=== PATIENT | female | born 1940 | race Two or more races ===

== ENCOUNTER 2020-08-01 09:56 | Outpatient (REF) | payer MEDICARE, SELFPAY ==
--- NOTE | 2020-08-01 | MM_ITS ---
EXAMINATION: MM SCREENING DIGITAL BREAST TOMOSYNTHESIS, BILATERAL CLINICAL INFORMATION: Screening. Asymptomatic. The lifetime risk of breast cancer based on the Tyrer-Cuzick Model is 2%. COMPARISON: Mammography: 01/18/2019, 12/26/2018, 12/07/2017, 11/18/2016 TECHNIQUE: Digital breast tomosynthesis is performed in both the craniocaudal and mediolateral oblique views along with computer-aided detection (CAD). Synthesized 2D images are generated from the tomosynthesis. FINDINGS: There are scattered areas of fibroglandular density (ACR BI-RADS breast composition Category b). There are no significant masses, abnormal calcifications, or other abnormalities. Parenchymal pattern is similar to prior studies. The axilla and skin contours are unremarkable. MM/MM tomosynthesis screening BI IMPRESSION: No mammographic evidence of malignancy. ASSESSMENT: BI-RADS 1: Negative RECOMMENDATION: Routine annual mammography screening. This patient's information was entered into a reminder system with a target due date for their next mammogram.
== END 2020-08-01 09:57 | disposition home or self-care (01) ==
LOC: HO.MAMMO 09:56
PROVIDERS: PCP Internal Medicine; Visit Provider Internal Medicine
DX: Z12.31 Encounter for screening mammogram for malignant neoplasm of breast (principal)
CPT/HCPCS: 77063; 77067

== ENCOUNTER → 2020-12-26 09:02 | Outpatient (BNVA) | payer MEDICARE, SELFPAY | PROVIDERS: PCP Internal Medicine; Visit Provider Internal Medicine Endocrinology, Diabetes & Metabolism | DX: M81.0 Age-related osteoporosis without current pathological fracture (principal) | CPT/HCPCS: 99212 ==

== ENCOUNTER 2020-12-26 09:47 | Outpatient (REF) | payer MEDICARE, SELFPAY ==
[2020-12-26 10:32] LABS: Albumin Level 4.1 g/dL (3.5-5.0); Calcium 8.9 mg/dL (8.4-10.2)
[2020-12-26 11:01] LABS: Vitamin D 25-OH Total 28.8 ng/mL (>30)
[2020-12-31 07:32] LABS: N-Telopeptide 27 (see note); NTXCreaRU 100 mg/dL (20-275)
== END 2020-12-26 09:48 | disposition home or self-care (01) ==
LOC: HO.10HDL 09:47
PROVIDERS: Visit Provider Internal Medicine Endocrinology, Diabetes & Metabolism
DX: M81.0 Age-related osteoporosis without current pathological fracture (principal)
CPT/HCPCS: 36415; 82040; 82306; 82310; 82523

== ENCOUNTER 2021-03-30 13:59 | Outpatient (REF) | payer MEDICARE, MEDICAID, SELFPAY ==
--- NOTE | ~2021-03-30 | US_ITS ---
EXAMINATION: US VENOUS ULTRASOUND WITH DOPPLER LOWER EXTREMITY, LEFT CLINICAL INFORMATION: Left leg pain COMPARISON: None TECHNIQUE: Ultrasound of the deep veins is performed from the hip to the calf with compression sonography and color and pulse Doppler assessment. Spectral analysis with color-flow imaging is performed. FINDINGS: There is normal venous compression and respiratory variation and augmented flow. The visualized common femoral vein, superficial femoral vein, profunda femoral vein, popliteal vein, and the trifurcation region shows no evidence of deep venous thrombosis. There is no significant popliteal fossa cyst. If the patient's symptoms persist, followup ultrasound in 5 days 7 days might be of value to exclude proximal propagation from a non-visualized calf vein. US/US venous duplex LE LT IMPRESSION: No DVT demonstrated in the left lower extremity.
== END 2021-03-30 14:00 | disposition home or self-care (01) ==
LOC: HO.US 13:59
PROVIDERS: PCP Internal Medicine; Visit Provider Internal Medicine Cardiovascular Disease
DX: R06.00 Dyspnea, unspecified (principal); M79.662 Pain in left lower leg
CPT/HCPCS: 93971

== ENCOUNTER 2021-08-18 10:55 | Emergency (ER) | payer MEDICARE, MEDICAID, SELFPAY ==
--- NOTE | ~2021-08-18 | US_ITS ---
EXAMINATION: US VENOUS ULTRASOUND WITH DOPPLER LOWER EXTREMITY, LEFT CLINICAL INFORMATION: Left lower extremity swelling and pain COMPARISON: Left lower extremity DVT study 09/02/2015 TECHNIQUE: Ultrasound of the deep veins is performed from the hip to the calf with compression sonography and color and pulse Doppler assessment. Spectral analysis with color-flow imaging is performed. FINDINGS: There is normal venous compression and respiratory variation and augmented flow. The visualized common femoral vein, superficial femoral vein, profunda femoral vein, popliteal vein, and the trifurcation region shows no evidence of deep venous thrombosis. There is no significant popliteal fossa cyst. If the patient's symptoms persist, followup ultrasound in 5 days 7 days might be of value to exclude proximal propagation from a non-visualized calf vein. US/US venous duplex LE IMPRESSION: No DVT demonstrated in the left lower extremity.
[2021-08-18 11:20] VITALS: BP 131/83; PULSE 92; RESP 18; TEMP 36; O2SAT 99; BMI 32.0
[2021-08-18 15:45] VITALS: BP 162/74; PULSE 75; RESP 16; O2SAT 97
--- NOTE | 2021-08-18 19:29 | ED.RECABL ---
HPI - Recheck/Abnormal Lab/Rx General Chief Complaint: Recheck/Abnormal Lab/Rx Stated Complaint: Abnormal Labs Time Seen by Provider: 08/18/21 16:27 Source: patient Mode of arrival: ambulatory Limitations: language barrier ([place] speaking only, hot wire glass tube cutter used) History of Present Illness HPI narrative: 80-year-old female who has a history of hypertension who went to the [facility] clinic yesterday for evaluation of her elevated blood pressure. The patient had a blood work done yesterday and was contacted today and told that she had an abnormal lab a needed to be seen in the emergency department. I did discuss the patient's laboratory evaluation with the covering physician and the patient had an elevated D-dimer. The patient does have a history of chronic swelling of her left lower extremity. She states that her left leg is larger than her right and that the swelling may be slightly worse than usual. She denied fever, chills, headache, chest pain, shortness of breath, dyspnea on exertion. She states that she occasionally gets chills. She states she occasionally has a cough which is nonproductive. She denied nausea, vomiting or abdominal pain. Related Data Home Medications Medication Instructions Recorded Confirmed amlodipine 2.5 mg tablet 2.5 mg PO DAILY 12/26/20 12/26/20 amlodipine 5 mg tablet 5 mg PO DAILY 12/26/20 12/26/20 aspirin 81 mg tablet,delayed 81 mg PO DAILY 12/26/20 12/26/20 release (Adult Low Dose Aspirin) atorvastatin 40 mg tablet 40 mg PO BEDTIME 12/26/20 12/26/20 cholecalciferol (vitamin D3) 25 25 mcg PO DAILY 12/26/20 12/26/20 mcg (1,000 unit) capsule furosemide 20 mg tablet 20 mg PO QAM 12/26/20 12/26/20 glipizide 10 mg tablet 10 mg PO DAILY 12/26/20 12/26/20 hydralazine 25 mg tablet 25 mg PO BID tab 12/26/20 12/26/20 insulin glargine 100 unit/mL (3 14 unit SUBCUT QPM ml 12/26/20 12/26/20 mL) subcutaneous pen (Lantus Solostar U-100 Insulin) loratadine 10 mg capsule 10 mg PO DAILY 12/26/20 12/26/20 metformin 1,000 mg tablet 1,000 mg PO DAILY 12/26/20 12/26/20 pioglitazone 15 mg tablet 15 mg PO DAILY 12/26/20 12/26/20 valsartan 320 mg tablet 320 mg PO DAILY 12/26/20 12/26/20 Previous Rx's Medication Instructions Recorded calcium carbonate 600 mg calcium 600 mg PO BID 90 Days #180 tab 12/26/20 (1,500 mg) tablet (Calcium) cholecalciferol (vitamin D3) 25 1,000 unit PO DAILY 90 Days #90 cap 12/26/20 mcg (1,000 unit) capsule Allergies Allergy/AdvReac Type Severity Reaction Status Date / Time Sulfa (Sulfonamide Allergy Mild RASH/ITCH Unverified 05/08/20 16:04 Antibiotics) penicillin V Allergy Unknown Verified 12/28/19 00:00 sulfamethoxazole Allergy Unknown HIVES Unverified 05/08/20 16:04 [From BACTRIM] trimethoprim [From BACTRIM] Allergy Unknown HIVES Unverified 05/08/20 16:04 From PERCOCET Allergy Unknown RASH Uncoded 05/08/20 16:04 Review of Systems Review of Systems: Yes all other systems are reviewed and are negative [facility] Past Medical History [facility] Narrative: Past medical history: Diabetes mellitus, hypertension, hyperlipidemia. Social history: The patient denies tobacco, alcohol and drug use. Medical History Osteoporosis Surgical History Hx of hysterectomy Hx of lithotripsy Family History Family History (Updated 12/26/20 @ 09:22 by SAVANAH Bryan) Father Heart problem Mother No problems noted. Social History Social History (Updated 12/26/20 @ 09:22 by SAVANAH Bryan) Alcohol intake: never Advance Directives: No Advance Directives Information Provided: No Physical Exam Vital Signs: Vital Signs: Last Vital Signs Temp 96.8 F 08/18/21 11:20 Pulse 75 08/18/21 15:45 Resp 16 08/18/21 15:45 BP 162/74 H 08/18/21 15:45 Pulse Ox 97 08/18/21 15:45 BMI result Body Mass Index 32.0 Const: General: cooperative and no acute distress Orientation/consciousness: oriented to person and oriented to place Limitations: no limitations HENMT: Head: Yes normal to inspection, Yes normocephalic and Yes atraumatic Ears: external ears normal General nose exam: Normal external nose present Face and sinus: Yes normal facial exam Mouth: Normal oral and palatal mucosa present Throat: Yes posterior oropharynx normal Eyes: General: appearance normal, both eyes and all related structures Pupils: Equal, round and reactive pupils present Neck: Neck: Yes normal visual inspection, Yes no lymphadenopathy, Yes trachea midline and Yes supple Chest: Chest palpation & inspection: normal inspection of the chest and normal palpation of entire chest wall Resp: Effort & Inspection: normal respiratory effort and able to speak in complete sentences Auscultation: clear to auscultation bilaterally Cardio: Rate: regular rate Rhythm: regular rhythm Heart sounds: S1 normal heart sound present, S2 normal heart sound present and no murmurs GI: Inspection: Yes normal to inspection Palpation (GI): Soft to palpation, nontender and no guarding Auscultation: normal bowel sounds : General: Yes no CVA tenderness Back/Spine/Pelvis: Back: no CVA tenderness Skin: General skin exam: no rashes or lesions noted Neuro: General: oriented to person and oriented to place Cranial nerves: Yes CN's II-XII intact bilaterally and Yes Equal, round and reactive pupils present Cognition (Neuro): normal cognition Motor exam (neuro): 5/5 motor strength present throughout Extrem: Other: The patient has nonpitting edema to her left lower extremity the left lower extremity is larger than the right from the knee down, she has negative Homans sign bilaterally, her extremities neurovascular intact, there is no increased erythema or warmth, her skin is intact. Psych: Appearance: grossly normal Speech and movement: Normal speech and movement present Affect: normal affect Attitude: cooperative Thought process: Normal thought process present Thought content: Normal thought content present Course Course Course Narrative: 80-year-old female who was seen yesterday at [facility] for elevated blood pressure, she had blood work checked yesterday and was noted to have an elevated D-dimer and was referred to the emergency department to rule out DVT of her left lower extremity. Vital signs revealed a blood pressure of 131/83 and 162/74 otherwise were unremarkable. The patient's exam did reveal asymmetric swelling of her left lower extremity which she states is chronic. A Doppler ultrasound was obtained and there was no DVT noted by the radiologist. The patient will be discharged home and advised to follow-up with her PCP for further evaluation and for further management of her hypertension. Discharge Plan Discharge Clinical Impression: D-dimer, elevated, Left leg swelling Patient Disposition: Home, Self-Care Additional Instructions: I did speak to 1 of the doctors covering the [facility]. You had an elevated D-dimer and they were worried that your left leg swelling could be caused by blood clot. Your duplex ultrasound of your left leg today revealed no blood clot, this is very reassuring. Continue taking your medications as prescribed by your doctor. Follow-up with your doctor in 2 days. Please return to the emergency department if your symptoms get worse or if you develop any symptoms that are concerning to you. Prescriptions: No Action amlodipine 2.5 mg tablet 2.5 mg PO DAILY RF: 0 amlodipine 5 mg tablet 5 mg PO DAILY RF: 0 aspirin [Adult Low Dose Aspirin] 81 mg tablet,delayed release (DR/EC) 81 mg PO DAILY RF: 0 loratadine 10 mg capsule 10 mg PO DAILY RF: 0 atorvastatin 40 mg tablet 40 mg PO BEDTIME RF: 0 furosemide 20 mg tablet 20 mg PO QAM RF: 0 glipizide 10 mg tablet 10 mg PO DAILY RF: 0 hydralazine 25 mg tablet 25 mg PO BID RF: 0 metformin 1,000 mg tablet 1,000 mg PO DAILY RF: 0 pioglitazone 15 mg tablet 15 mg PO DAILY RF: 0 valsartan 320 mg tablet 320 mg PO DAILY RF: 0 cholecalciferol (vitamin D3) 25 mcg (1,000 unit) capsule 25 mcg PO DAILY RF: 0 Lantus Solostar U-100 Insulin 100 unit/mL (3 mL) insulin pen 14 unit subcut QPM RF: 0 cholecalciferol (vitamin D3) 25 mcg (1,000 unit) capsule 1,000 unit PO DAILY 90 Days Qty: 90 RF: 3 calcium carbonate [Calcium 600] 600 mg calcium (1,500 mg) tablet 600 mg PO BID 90 Days Qty: 180 RF: 3
== END 2021-08-18 20:48 | disposition home or self-care (01) ==
PROVIDERS: Emergency Provider Emergency Medicine Emergency Medical Services; PCP Internal Medicine
DX: R79.1 Abnormal coagulation profile (principal); M79.605 Pain in left leg; M79.89 Other specified soft tissue disorders; I10 Essential (primary) hypertension
CPT/HCPCS: 93971; 99283; 99284

== ENCOUNTER 2021-08-31 08:52 | Outpatient (REF) | payer MEDICARE, MEDICAID, SELFPAY ==
--- NOTE | ~2021-08-31 | MM_ITS ---
EXAMINATION: MM SCREENING DIGITAL BREAST TOMOSYNTHESIS, BILATERAL CLINICAL INFORMATION: Screening. Asymptomatic. The lifetime risk of breast cancer based on the Tyrer-Cuzick Model is 2%. COMPARISON: Mammography: 08/01/2020, 01/18/2019, 12/26/2018, 12/07/2017 TECHNIQUE: Digital breast tomosynthesis is performed in both the craniocaudal and mediolateral oblique views along with computer-aided detection (CAD). Synthesized 2D images are generated from the tomosynthesis. Additional left MLO view is provided. FINDINGS: There are scattered areas of fibroglandular density (ACR BI-RADS breast composition Category b). There are no significant masses, abnormal calcifications, or other abnormalities. MM/MM tomosynthesis screening BI IMPRESSION: No mammographic evidence of malignancy. ASSESSMENT: BI-RADS 1: Negative RECOMMENDATION: Routine annual mammography screening. This patient's information was entered into a reminder system with a target due date for their next mammogram.
== END 2021-08-31 08:53 | disposition home or self-care (01) ==
LOC: HO.MAMMO 08:52
PROVIDERS: PCP Internal Medicine; Visit Provider Internal Medicine
DX: Z12.31 Encounter for screening mammogram for malignant neoplasm of breast (principal)
CPT/HCPCS: 77063; 77067

== ENCOUNTER → 2021-12-23 08:26 | Outpatient (BNVA) | payer MEDICARE, MEDICAID, SELFPAY | PROVIDERS: PCP Internal Medicine; Visit Provider Internal Medicine Endocrinology, Diabetes & Metabolism | DX: M81.0 Age-related osteoporosis without current pathological fracture (principal) | CPT/HCPCS: 99212 ==

== ENCOUNTER 2021-12-25 09:21 | Outpatient (REF) | payer OTHER, MEDICAID, SELFPAY ==
[2021-12-25 10:07] LABS: Creatinine, mg/dL 77.31
[2021-12-25 12:39] LABS: Total Volume 24 Hour Urine 1325 mL
[2021-12-29 21:21] LABS: Calcium, 24 Hr Urine 163 mg/24 h; Calcium/Creatinine Ratio 160 mg/g creat (30-275); Creatinine 24Hr Urine 1.02 g/24 h (0.50-2.15)
[2021-12-30 06:12] LABS: N-Telopeptide 23 (see note); NTXCreaRU 230 mg/dL (20-275)
== END 2021-12-25 09:22 | disposition home or self-care (01) ==
LOC: HO.LNP 09:21
PROVIDERS: Internal Medicine Endocrinology, Diabetes & Metabolism; Visit Provider Internal Medicine Endocrinology, Diabetes & Metabolism
DX: M81.0 Age-related osteoporosis without current pathological fracture (principal)
CPT/HCPCS: 82340; 82523; 82570

== ENCOUNTER 2021-12-31 09:53 | Outpatient (REF) | payer OTHER, MEDICAID, SELFPAY ==
--- NOTE | ~2021-12-31 | MM_ITS ---
EXAMINATION: BONE DENSITOMETRY CLINICAL INDICATION: Osteoporosis. COMPARISON: Previous BD dated 02/03/2018 and baseline BD dated 03/28/2007. TECHNIQUE: Using a [employer] DXA System (software version: 13.1) manufactured by [employer], dual-energy x-ray absorptiometry was performed of the lumbar spine, left hip, and left forearm radius 33%. The images are of good technical quality. Summary results are attached. FINDINGS: AP SPINE L1-L4: Current: BMD 1.057 g/cm2, Z-score 0.3, T-score -1.0, normal, 2.0% decrease from previous, 10.9% increase from baseline (<5% change is not significant). Prior: BMD 1.079 g/cm2. Baseline: BMD 0.953 g/cm2. LEFT FEMUR, NECK: Current: BMD 0.781 g/cm2, Z-score 0.0, T-score -1.9, osteopenia. Prior: BMD 0.775 g/cm2. Baseline: BMD 0.720 g/cm2. LEFT FEMUR, TOTAL: Current: BMD 0.885 g/cm2, Z-score 0.7, T-score -1.0, normal, 0.3% increase from previous, 10.5% increase from baseline (<5% change is not significant). Prior: BMD 0.882 g/cm2. Baseline: BMD 0.801 g/cm2. LEFT FOREARM RADIUS 33%: BMD 0.535 g/cm2, Z-score -1.2, T-score -3.9, osteoporosis. Prior: Not previously measured. IDENTIFIED RISK FACTORS: Early menopause, hysterectomy, bilateral oophorectomy, rheumatoid arthritis, secondary osteoporosis. HISTORY OF FRACTURE: None listed. MEDICATIONS: Calcium, vitamin D. MM/XR DEXA appendicular skeleton IMPRESSION: 1. DIAGNOSIS: Osteoporosis based on the lowest T-score value of -3.9 in the forearm radius 33% applying World Health Organization criteria. 2. 10-YEAR FRACTURE RISK PREDICTION, FRAX: According to the guidelines, FRAX calculation should only be performed on patients in the osteopenia bone density category. Therefore, FRAX was not performed on this patient. 3. Treatment Recommendations: NOF guidelines recommend consideration for treatment in postmenopausal women and men age 50 and older presenting with the following: -A hip or vertebral (clinical or morphometric) fracture. -T-score less than or equal to -2.5 at the femoral neck or spine after appropriate evaluation to exclude secondary causes. -Low bone mass at the hip or spine and a 10-year fracture probability by FRAX of greater than or equal to 3% for hip fracture or greater than or equal to 20% for major osteoporotic fracture based on the [place] adapted WHO algorithm. 4. Other Recommendations: All treatment decisions require clinical judgment and consideration of individual patient factors, including patient preferences, comorbidities, previous drug use, risk factors not captured in the FRAX model (e.g. frailty, falls, vitamin D deficiency, increased bone turnover, interval significant decline in bone density) and possible under or overestimation of fracture risk by FRAX. Additional medical evaluation for secondary cause of low bone mineral density may be appropriate. FUTURE SCAN RECOMMENDATION: People with diagnosed cases of osteoporosis or at high risk for fracture should have regular bone mineral density tests. For patients eligible for Medicare, routine testing is allowed once every 2 years. The testing frequency can be increased to one year for patients who have rapidly progressing disease, those who are receiving or discontinuing medical therapy to restore bone mass, or have additional risk factors.
== END 2021-12-31 09:54 | disposition home or self-care (01) ==
LOC: HO.MAMMO 09:53
PROVIDERS: PCP Internal Medicine; Visit Provider Internal Medicine Endocrinology, Diabetes & Metabolism
DX: Z13.820 Encounter for screening for osteoporosis (principal); M81.0 Age-related osteoporosis without current pathological fracture; Z78.0 Asymptomatic menopausal state
CPT/HCPCS: 77081

== ENCOUNTER 2022-02-26 17:57 | Inpatient (IN) | payer OTHER, MEDICAID, SELFPAY ==
--- NOTE | ~2022-02-26 | CT_ITS ---
EXAMINATION: CT ABDOMEN AND PELVIS WITHOUT CONTRAST CLINICAL INFORMATION: Right lower abdomen pain. Clinical concern for diverticulitis. COMPARISON: Portions of CT 08/16/19 TECHNIQUE: Multidetector volumetric imaging was performed from the superior aspect of the liver through the pubic symphysis. Sagittal and coronal reformatted images were obtained on the technologist's workstation. This CT examination was performed using dose optimization techniques as appropriate, variously including the following: *Automated exposure control *Adjustment of mA and/or kV according to patient size (this includes techniques or standardized protocols for targeted exams where dose is matched to indication/reason for exam; i.e. extremities or head) *Use of iterative reconstruction technique DLP: 652 mGy-cm FINDINGS: LUNG BASES: The extreme upper aspect of the right lobe of the liver is not included. Trace pericardial fluid or thickening posteriorly. There is motion artifact limiting assessment. There are nonspecific dependent lung densities possibly atelectasis. LIVER, GALLBLADDER, AND BILIARY TREE: No suspicious abnormality there are surgical clips in the expected region of the gallbladder PANCREAS: There is some stranding around the pancreas. There is fatty atrophy. SPLEEN: Within normal limits ADRENAL GLANDS: Within normal limits KIDNEYS AND URETERS: There is moderate to marked dilation of the intrarenal collecting system, renal pelvis and proximal ureter on the right. There is an approximately 0.9 cm calculus in the ureter on the right at the L4 level. This is faintly suggested on the digital crop scout radiograph. There is perinephric and periureteric stranding on the right extending to the region of the duodenum and pancreaticoduodenal groove. No significant dilation of the distal ureter. There are a few tiny punctate left renal calculi. There is a 0.2 cm calculus in the lower pole of the left kidney 11.5 cm from the skin. BLADDER: No suspicious abnormality. GASTROINTESTINAL TRACT: No localized pericolonic fat stranding. There is no significant small bowel obstruction. No suspicious abnormality of the stomach. ABDOMINAL WALL: No significant hernia is appreciated. LYMPH NODES: There are no measurably enlarged abdominal or pelvic lymph nodes. There is no significant free intraperitoneal fluid VASCULAR: There is no abdominal aortic aneurysm. PELVIC VISCERA: I suspect previous hysterectomy. No suspicious adnexal mass or collection. OSSEOUS STRUCTURES: No suspicious focal lesion CT/CT abdomen pelvis wo con IMPRESSION: There is a 0.9 cm obstructing mid right ureteral calculus at the L4 level. No CT evidence of acute diverticulitis Fleischner guidelines were followed.
--- NOTE | ~2022-02-26 | XR_ITS ---
EXAMINATION: XR abdomen 1V CLINICAL INDICATION: Reason for Exam stones COMPARISON: CT abdomen pelvis 02/26/2022 TECHNIQUE: AP view of the abdomen. XR/XR abdomen 1V FINDINGS/IMPRESSION: * Right ureteral stent in place. The previously seen right ureteral stone is difficult to discern if this region overlaps the lateral aspect of L4-L5. * Nonobstructive bowel gas pattern. * Right upper quadrant cholecystectomy clips.
--- NOTE | ~2022-02-26 | XR_ITS ---
EXAMINATION: XR CHEST CLINICAL INFORMATION: Status post TLC placement COMPARISON: None TECHNIQUE: Frontal view of the chest was obtained. FINDINGS: The lungs are hypoexpanded with minimal patchy density in both lung bases, question atelectasis/infiltrate. Heart size and pulmonary vascularity is normal with slight prominence of parahilar vascular markings.. There is a new central catheter its tip in the right atrium. No evidence of pneumothorax. No gross bony abnormality. XR/XR chest 1V IMPRESSION: Hypoexpanded lungs with minimal patchy opacity both lung bases question atelectasis versus infiltrate. Increased pulmonary vascularity but no congestion suspected. New central catheter tip in the right atrium. Mild cardiomegaly.
[2022-02-26 17:59] VITALS: BP 150/87; PULSE 110; O2SAT 95
[2022-02-26 18:05] VITALS: BP 163/73; PULSE 108; RESP 20; TEMP 38.4; O2SAT 99; BMI 29.0
--- NOTE | 2022-02-26 18:09 | ECG_ITS ---
Test Reason : ABDOMINAL PAIN Blood Pressure : / mmHG Vent. Rate : 113 BPM Atrial Rate : 113 BPM P-R Int : 184 ms QRS Dur : 076 ms QT Int : 304 ms P-R-T Axes : 034 -02 048 degrees QTc Int : 416 ms Sinus tachycardia Inferior infarct , age undetermined Abnormal ECG When compared with ECG of 16-AUG-2019 11:41, Inferior infarct is now Present Nonspecific T wave abnormality now evident in Anterior leads Referred By: Librado Rebolledo Electronically Signed By:Fran Jordan
--- NOTE | 2022-02-26 18:26 | ED_ITS ---
HPI - Abdominal Pain General Chief Complaint: Abdominal Pain Stated Complaint: RLQ Abd Pain Time Seen by Provider: 02/26/22 18:26 Source: patient Mode of arrival: ambulatory Limitations: no limitations History of Present Illness HPI narrative: Patient complaining of right lower quadrant pain for last 3 days get got worse today acid with nausea and vomiting vomited multiple times today also had low- grade fever with chills and difficulty in urination patient had remote history of kidney stone in the past. Status post appendectomy on arrival patient's blood pressure was 163/73 pulse rate 108 temperature 101.2 degrees saturating 99% on room air Related Data Home Medications Medication Instructions Recorded Confirmed aspirin 81 mg tablet,delayed 81 mg PO DAILY 12/26/20 12/26/20 release (Adult Low Dose Aspirin) glipizide 10 mg tablet 10 mg PO DAILY 12/26/20 02/26/22 hydralazine 25 mg tablet 25 mg PO BID 12/26/20 02/26/22 insulin glargine 100 unit/mL (3 14 unit subcut QPM 12/26/20 02/26/22 mL) subcutaneous pen (Lantus Solostar U-100 Insulin) metformin 1,000 mg tablet 1,000 mg PO DAILY 12/26/20 02/26/22 atorvastatin 80 mg tablet 80 mg PO BEDTIME 12/23/21 02/26/22 blood sugar diagnostic (OneTouch #10 ea 12/23/21 02/26/22 Ultra Test) chlorhexidine gluconate 0.12 % 15 ml PO BID 12/23/21 02/26/22 mouthwash dulaglutide 0.75 mg/0.5 mL 0.75 mg subcut QWEEK 12/23/21 02/26/22 subcutaneous pen injector (Trulicity) furosemide 40 mg tablet 40 mg PO QAM 12/23/21 02/26/22 lancets 33 gauge (TRUEplus Lancets) #100 ea 12/23/21 02/26/22 loratadine 10 mg tablet 10 mg PO DAILY 12/23/21 02/26/22 pen needle, diabetic 31 gauge x #1,200 ea 12/23/21 02/26/22 5/16 (UltiCare Pen Needle) valsartan 160 mg tablet 160 mg PO QAM 12/23/21 02/26/22 Previous Rx's Medication Instructions Recorded calcium carbonate 600 mg calcium 600 mg PO BID 90 days #180 tabs 11/12/21 (1,500 mg) tablet (Calcium) cholecalciferol (vitamin D3) 25 1,000 unit PO DAILY 90 days #90 12/11/21 mcg (1,000 unit) capsule caps Allergies Allergy/AdvReac Type Severity Reaction Status Date / Time Sulfa (Sulfonamide Allergy Mild RASH/ITCH Verified 02/26/22 21:43 Antibiotics) penicillin V Allergy Unknown Unknown Verified 12/23/21 08:32 sulfamethoxazole Allergy Unknown HIVES Unverified 12/23/21 08:32 [From BACTRIM] trimethoprim [From BACTRIM] Allergy Unknown HIVES Unverified 12/23/21 08:32 From PERCOCET Allergy Unknown RASH Uncoded 12/23/21 08:32 Review of Systems Review of Systems Yes all other systems are reviewed and are negative [facility] Past Medical History Medical History Osteoporosis Surgical History Hx of hysterectomy Hx of lithotripsy Family History Family History Father Heart problem Mother No problems noted. Social History Social History Alcohol intake: never Patient Tobacco Use Status: Never used Tobacco Advance Directives: No Advance Directives Information Provided: No Physical Exam ED Vital Signs: Vital Signs - 24 hr 02/26/22 18:05 02/26/22 19:54 02/26/22 21:17 Temperature 101.2 F H 100.4 F 101.1 F H Pulse Rate 108 H 117 H 115 H Respiratory Rate 20 26 H 18 Blood Pressure 163/73 H 123/57 L 126/59 L Pulse Oximetry 99 94 91 L Oxygen Delivery Method Room Air Nasal Cannula Nasal Cannula Oxygen Flow Rate 2 2 BMI result Body Mass Index 29.0 Appearance: Alert. Oriented X3. In moderate distress Eyes: No pallor or icterus ENT: Pharynx normal. Oral Mucosa moist Neck: Normal inspection. Neck supple. CVS: Normal heart rate and rhythm. Pulses normal. Respiratory: No respiratory distress. Equal air entry bilateral, no wheezing/rales/rhonchi Abdomen: Soft, deep tenderness right lower quadrant with guarding no rebound tenderness Bowel sounds are present, no mass palpable, right CVA tenderness Skin: Skin warm and dry. Normal skin color. Normal skin turgor. Extremities: No lower extremity edema. No calf tenderness Neuro: Oriented X 3. No motor deficit. MDM - Abdominal Pain MDM Narrative Medical decision making narrative: 2199 Patient with 9 mm right distal ureteric obstructive stone with UTI clinically septic not in septic shock treated with IV fluids and IV ceftriaxone. Will admit patient for IV hydration IV antibiotic urologist to see in a.m. case discussed with Dr. Goldstein urologist Lab Data Attestation: I reviewed the patient's lab results. Result diagrams: 02/26/22 18:19 02/26/22 18:19 Labs: Lab Results 02/26/22 02/26/22 02/26/22 Range/Units 18:19 18:19 18:19 WBC 13.3 H (4.8-10.8) X10*3/uL RBC 4.00 L (4.20-5.50) X10*6/uL Hgb 11.9 L (12.0-16.0) g/dl Hct 35.8 L (37.0-47.0) % MCV 89.5 (80.0-98.0) fL MCH 29.8 (27.0-33.0) pg MCHC 33.2 (31.0-35.0) g/dl RDW 14.4 (11.0-16.0) % Plt Count 261 (160-400) X10*3/uL MPV 9.6 (9.4-12.3) fL Absolute Nucleated RBC 0.000 (0.0-0.012) X10*3/uL Nucleated RBC % (auto) 0.0 (0.0-0.2) /100WBC Sodium 133 L (135-145) mmol/L Potassium 4.5 (3.3-5.1) mmol/L Chloride 100 (96-108) mmol/L Carbon Dioxide 22 (22-29) mmol/L Anion Gap 16 (12-20) BUN 31 H (9-16) mg/dL Creatinine 1.37 (0.5-1.4) mg/dL Estim Creat Clear Calc 35.3 Estimated GFR 37 Random Glucose 257 H (60-115) mg/dL Lactic Acid 2.0 (0.5-2.0) mmol/L Calcium 9.1 (8.4-10.2) mg/dL Troponin I High Sens (<3.5-17.0) ng/L Lipase 17 (8-78) U/L Urine Color Urine Appearance Urine pH (5.0-8.0) Ur Specific Pryor (1.005-1.025) Urine Protein (NEG-TRACE) MG/DL Urine Glucose (UA) (NEG) MG/DL Urine Ketones (NEG) MG/DL Urine Blood (NEG) Urine Nitrite (NEG) Ur Leukocyte Esterase (NEG) Urine RBC (0) /HPF Urine WBC (0-4) /HPF Urine WBC Clumps Ur Squamous Epith Cells /LPF Urine Bacteria /LPF Urine Mucus /LPF COVID-19 ([facility]Y) (Negative) COVID-19 Clin Com 02/26/22 02/26/22 02/26/22 Range/Units 18:19 18:47 21:16 WBC (4.8-10.8) X10*3/uL RBC (4.20-5.50) X10*6/uL Hgb (12.0-16.0) g/dl Hct (37.0-47.0) % MCV (80.0-98.0) fL MCH (27.0-33.0) pg MCHC (31.0-35.0) g/dl RDW (11.0-16.0) % Plt Count (160-400) X10*3/uL MPV (9.4-12.3) fL Absolute Nucleated RBC (0.0-0.012) X10*3/uL Nucleated RBC % (auto) (0.0-0.2) /100WBC Sodium (135-145) mmol/L Potassium (3.3-5.1) mmol/L Chloride (96-108) mmol/L Carbon Dioxide (22-29) mmol/L Anion Gap (12-20) BUN (9-16) mg/dL Creatinine (0.5-1.4) mg/dL Estim Creat Clear Calc Estimated GFR Random Glucose (60-115) mg/dL Lactic Acid (0.5-2.0) mmol/L Calcium (8.4-10.2) mg/dL Troponin I High Sens 5.7 (<3.5-17.0) ng/L Lipase (8-78) U/L Urine Color YELLOW Urine Appearance HAZY Urine pH 6.5 (5.0-8.0) Ur Specific Pryor 1.010 (1.005-1.025) Urine Protein TRACE (NEG-TRACE) MG/DL Urine Glucose (UA) 500 H (NEG) MG/DL Urine Ketones 5 (NEG) MG/DL Urine Blood 3+ H (NEG) Urine Nitrite POS H (NEG) Ur Leukocyte Esterase 1+ H (NEG) Urine RBC 10-14 H (0) /HPF Urine WBC 10-14 H (0-4) /HPF Urine WBC Clumps NOTED Ur Squamous Epith Cells 2+ /LPF Urine Bacteria 3+ /LPF Urine Mucus 2+ /LPF COVID-19 ([facility]ARTY) Negative (Negative) COVID-19 Clin Com See Note Discharge Plan Discharge Clinical Impression: Calculus of kidney, UTI (urinary tract infection) Patient Disposition: Admitted As Inpatient
[2022-02-26 18:31] LABS: Hematocrit 35.8 % (37.0-47.0); Hemoglobin 11.9 g/dl (12.0-16.0); Mean Corpuscular HGB Conc 33.2 g/dl (31.0-35.0); Mean Corpuscular Hemoglobin 29.8 pg (27.0-33.0); Mean Corpuscular Volume 89.5 fL (80.0-98.0); Mean Platelet Volume 9.6 fL (9.4-12.3); Platelet Count 261 X10*3/uL (160-400); Red Cell Distribution Width 14.4 % (11.0-16.0); White Blood Count 13.3 X10*3/uL (4.8-10.8)
[2022-02-26] MEDS: 0.9 % Sodium Chloride 1,000 ML 999 ML IV ×2 (18:31→21:42)
[2022-02-26 18:44] LABS: Anion Gap 16 (12-20); Blood Urea Nitrogen 31 mg/dL (9-16); Calcium 9.1 mg/dL (8.4-10.2); Carbon Dioxide 22 mmol/L (22-29); Chloride 100 mmol/L (96-108); Creatinine Clr Calc Pharmacy 35.3; Estimated Glomerular Filt Rate 37; Glucose Random 257 mg/dL (60-115); Lipase 17 U/L (8-78); Potassium 4.5 mmol/L (3.3-5.1); Sodium 133 mmol/L (135-145)
[2022-02-26] MEDS: Morphine Sulfate 4 MG/ML CARTRIDGE IVPUSH (18:45)
[2022-02-26] MEDS: ondansetron HCL 4 MG/2 ML VIAL IVPUSH (18:46)
[2022-02-26 18:49] LABS: Troponin-I High Sensitivity 5.7 ng/L (<3.5-17.0)
[2022-02-26 19:09] LABS: COVID-19 Test Negative (Negative)
[2022-02-26] MEDS: cefTRIAXone sodium 1 GM in 0.9 % Sodium Chloride 50 ML IV (19:15)
[2022-02-26 19:54] VITALS: BP 123/57; PULSE 117; RESP 26; TEMP 38; O2SAT 94
[2022-02-26 21:17] VITALS: BP 126/59; PULSE 115; RESP 18; TEMP 38.4; O2SAT 91
[2022-02-26] MEDS: Ketorolac Tromethamine 30 MG/ML VIAL IVPUSH (21:21)
[2022-02-26 21:24] LABS: Appearance Urine HAZY; Color Urine YELLOW; Glucose Urine UA 500 MG/DL (NEG); Leukocyte Esterase Urine 1+ (NEG); Nitrite Urine POS (NEG); PH 6.5 (5.0-8.0); UACC Culture Trigger YES; Urine Blood 3+ (NEG); Urine Ketones 5 MG/DL (NEG); Urine Protein TRACE MG/DL (NEG-TRACE)
[2022-02-26 21:45] LABS: Bacteria Urine 3+ /LPF; Mucus Urine 2+ /LPF; Squamous Epithelial Cell Urine 2+ /LPF; WBC Clumps Urine NOTED
[2022-02-26 22:08] VITALS: BP 112/63
--- NOTE | 2022-02-26 22:13 | P.HPHOSP_ITS ---
History of Present Illness Date of Service: 02/26/22 Chief Complaint: abd pain 81-year-old female with a past medical history of hypertension, hyperlipidemia, diabetes, osteoporosis presented to the hospital today with a chief complaint of abdominal pain. Patient reports that over the past 1 week she has been having abdominal pain located mainly on the right flank area; radiating down the legs; denies any urin soila frequency urgency or dysuria. Denies any blood in the urine. Reports subjective fevers. Denies any chest pain or palpitations. Review of all other systems is negative except mentioned above ER course: Per ER team patient noted to have abnormal urinalysis consistent with UTI; CT scan showed 0.9 mm obstructing stone in the right ureteral L4 level; patient was given IV antibiotics. Urology team was notified. Admitted to the hospital for further management. His [facility] Medical History Osteoporosis Family History Father Heart problem Mother No problems noted. Surgical History Hx of hysterectomy Hx of lithotripsy Social History Alcohol intake: never Patient Tobacco Use Status: Never used Tobacco Advance Directives: No Advance Directives Information Provided: No Meds Allergies Allergy/AdvReac Type Severity Reaction Status Date / Time Sulfa (Sulfonamide Allergy Mild RASH/ITCH Verified 02/26/22 21:43 Antibiotics) penicillin V Allergy Unknown Unknown Verified 12/23/21 08:32 sulfamethoxazole Allergy Unknown HIVES Verified 02/26/22 23:56 [From BACTRIM] trimethoprim [From BACTRIM] Allergy Unknown HIVES Verified 02/26/22 23:56 From PERCOCET Allergy Unknown RASH Uncoded 12/23/21 08:32 Home Medications Medication Instructions Recorded Confirmed Last Taken Type aspirin 81 mg tablet,delayed 81 mg PO DAILY 12/26/20 02/26/22 Unknown History release (Adult Low Dose Aspirin) glipizide 10 mg tablet 10 mg PO DAILY 12/26/20 02/26/22 Unknown History hydralazine 25 mg tablet 25 mg PO BID 12/26/20 02/26/22 Unknown History insulin glargine 100 unit/mL (3 14 unit subcut QPM 12/26/20 02/26/22 Unknown History mL) subcutaneous pen (Lantus Solostar U-100 Insulin) metformin 1,000 mg tablet 1,000 mg PO DAILY 12/26/20 02/26/22 Unknown History atorvastatin 80 mg tablet 80 mg PO BEDTIME 12/23/21 02/26/22 Unknown History blood sugar diagnostic (OneTouch #10 ea 12/23/21 02/26/22 Unknown History Ultra Test) chlorhexidine gluconate 0.12 % 15 ml PO BID 12/23/21 02/26/22 Unknown History mouthwash dulaglutide 0.75 mg/0.5 mL 0.75 mg subcut QWEEK 12/23/21 02/26/22 Unknown History subcutaneous pen injector (Trulicity) furosemide 40 mg tablet 40 mg PO QAM 12/23/21 02/26/22 Unknown History lancets 33 gauge (TRUEplus Lancets) #100 ea 12/23/21 02/26/22 Unknown History loratadine 10 mg tablet 10 mg PO DAILY 12/23/21 02/26/22 Unknown History pen needle, diabetic 31 gauge x #1,200 ea 12/23/21 02/26/22 Unknown History 01/04 (UltiCare Pen Needle) valsartan 160 mg tablet 160 mg PO QAM 12/23/21 02/26/22 Unknown History Physical Exam Vital Signs and Narrative: Vital Signs: Last Vital Signs Temp 101.1 F H 02/26/22 21:17 Pulse 115 H 02/26/22 21:17 Resp 18 02/26/22 21:17 BP 126/59 L 02/26/22 21:17 Pulse Ox 91 L 02/26/22 21:17 O2 Del Method 02/26/22 21:17 O2 Flow Rate 2 02/26/22 21:17 BMI result Body Mass Index 29.0 Gen: Appears be in no acute distress HEENT: NCAT, Moist mucosa. Pulmonary: Vesicular breath sounds, fair air entry CVS: Normal S1-S2 Abdomen: BS+, Soft, tender in the right flank; Extremities: Warm well perfused Neuro: Alert and awake. Results Labs CBC and Chem 7: 02/26/22 18:19 07/08/22 18:19 Labs: Laboratory Results - last 24 hr 02/26/22 02/26/22 02/26/22 18:19 18:19 18:19 MCV 89.5 MCH 29.8 MCHC 33.2 RDW 14.4 Plt Count 261 MPV 9.6 Absolute Nucleated RBC 0.000 Nucleated RBC % (auto) 0.0 Anion Gap 16 Estim Creat Clear Calc 35.3 Estimated GFR 37 Random Glucose 257 H Lactic Acid 2.0 Calcium 9.1 Troponin I High Sens Lipase 17 Urine Color Urine Appearance Urine pH Ur Specific [place] Urine Protein Urine Glucose (UA) Urine Ketones Urine Blood Urine Nitrite Ur Leukocyte Esterase Urine RBC Urine WBC Urine WBC Clumps Ur Squamous Epith Cells Urine Bacteria Urine Mucus COVID-19 (MARTY) COVID-19 Clin Com 02/26/22 02/26/22 02/26/22 18:19 18:47 21:16 MCV MCH MCHC RDW Plt Count MPV Absolute Nucleated RBC Nucleated RBC % (auto) Anion Gap Estim Creat Clear Calc Estimated GFR Random Glucose Lactic Acid Calcium Troponin I High Sens 5.7 Lipase Urine Color YELLOW Urine Appearance HAZY Urine pH 6.5 Ur Specific [place] 1.010 Urine Protein TRACE Urine Glucose (UA) 500 H Urine Ketones 5 Urine Blood 3+ H Urine Nitrite POS H Ur Leukocyte Esterase 1+ H Urine RBC 10-14 H Urine WBC 10-14 H Urine WBC Clumps NOTED Ur Squamous Epith Cells 2+ Urine Bacteria 3+ Urine Mucus 2+ COVID-19 (MARTY) Negative COVID-19 Clin Com See Note Imaging Radiologist's Impressions: Impressions Abdomen/Pelvis CT 02/26/22 19:48 IMPRESSION: There is a 0.9 cm obstructing mid right ureteral calculus at the L4 level. No CT evidence of acute diverticulitis Fleischner guidelines were followed. Assessment and Plan (1) Calculus of kidney: Status: Acute (2) UTI (urinary tract infection): Status: Acute Plan 81-year-old female with a past medical history of hypertension, hyperlipidemia, diabetes, osteoporosis presented to the hospital today with a chief complaint of abdominal pain. Noted to have UTI/ureteral calculus. Admitted for further management. UTI: Right ureteral calculus: Measuring 0.9 cm. Obstructing. Urology team was notified. Pain control Continue IV ceftriaxone Follow-up cultures History of diabetes: Insulin sliding scale. History of hypertension: Patient's blood pressure currently on soft diet. Hold home hydralazine, losartan. DVT prophylaxis: Lovenox Code status: Full code Quality Stroke Does the patient have a stroke diagnosis?: No VTE Prior VTE?: No VTE Risk Level:: Medical - moderate - high VTE Device Contraindication: Treatment Not Indicated VTE Drug Contraindication: N/A - Med Ordered
[2022-02-26] MEDS: 0.9 % Sodium Chloride 1,000 ML 100 ML IVCONT (23:55)
[2022-02-27] VITALS (23 sets, daily range): BP systolic 63–123; BP diastolic 49–68; PULSE 69–162; RESP 14–27; TEMP 36.7–38.4; O2SAT 92–99
--- NOTE | 2022-02-27 | ECG_ITS ---
Test Reason : TACHYCARDIA Blood Pressure : / mmHG Vent. Rate : 160 BPM Atrial Rate : 000 BPM P-R Int : 000 ms QRS Dur : 100 ms QT Int : 286 ms P-R-T Axes : 000 001 -10 degrees QTc Int : 466 ms Supraventricular tachycardia Cannot rule out Inferior infarct (cited on or before 26-FEB-2022) Abnormal ECG When compared with ECG of 26-FEB-2022 18:28, Nonspecific T wave abnormality no longer evident in Anterior leads Referred By: Gopal Sheikh Electronically Signed By:Fran Jordan
[2022-02-27 06:50] LABS: Hematocrit 31.5 % (37.0-47.0); Hemoglobin 10.4 g/dl (12.0-16.0); Mean Corpuscular Volume 87.7 fL (80.0-98.0); PLT CLUMP 1; Red Blood Count 3.59 X10*6/uL (4.20-5.50); Red Cell Distribution Width 14.4 % (11.0-16.0)
[2022-02-27 07:03] LABS: Anion Gap 13 (12-20); Blood Urea Nitrogen 34 mg/dL (9-16); Calcium 7.4 mg/dL (8.4-10.2); Carbon Dioxide 18 mmol/L (22-29); Chloride 106 mmol/L (96-108); Creatinine Clr Calc Pharmacy 29.4; Estimated Glomerular Filt Rate 30; Glucose Random 232 mg/dL (60-115); Potassium 4.8 mmol/L (3.3-5.1); Sodium 132 mmol/L (135-145)
[2022-02-27 07:28] LABS: Band Neutrophils Percent 11 % (3-5); Lymphocytes Percent Manual 7 % (20-40); Monocytes Percent Manual 3 % (2-11); Neutrophils Percent Manual 79 % (45-73); RBC Morphology NORMAL
[2022-02-27] MEDS: HYDROmorphone HCl 0.5 MG/0.5 ML SYRINGE IVPUSH (07:28)
[2022-02-27 07:29] LABS: Platelet Estimate SLIGHTLY DECREASED (NORMAL); Platelet Morphology Comment NORMAL
[2022-02-27 07:30] LABS: Glucose, Whole Blood 202 mg/dL (60-115)
[2022-02-27] MEDS: Acetaminophen 325 MG TABLET 650 MG PO ×2 (07:33→23:47)
[2022-02-27] MEDS: Lactated Ringers 1,000 ML 999 ML IV (08:40)
[2022-02-27 08:44] LABS: Lymphocytes Absolute Manual 1.6 X10*3/uL (1.2-4.9); Monocytes Absolute Manual 0.7 X10*3/uL (0.1-1.2); Neutrophils Absolute Manual 20.8 X10*3/uL (2.0-8.3); Platelet Count 139 X10*3/uL (160-400); White Blood Count 23.1 X10*3/uL (4.8-10.8)
--- NOTE | 2022-02-27 08:47 | PC.NURSE ---
LR bolus running. Dr. Sheikh aware of am BP.
--- NOTE | 2022-02-27 09:57 | MHC.CM.PN ---
Attempted to meet with patient in regards to discharge planning. Patient currently sleeping. No family present. Will attempt to meet again. Continue to monitor for d/c needs.
--- NOTE | 2022-02-27 10:03 | PM.EVENT ---
Event Note Date of Service: 02/27/22 Event Note: Patient seen and examine this AM Early this morning, she started becoming more tachycardic and subseuqently hypotensive. Repeat lactate 2; 1L IVF ordered; One dose of empiric cefepime given. BP continues to remain low. Pt somnolent but easily arousable Critical Care consult requested and seen urgently bedside. Will be transferred to ICU for vasopressor support. Dr. Goldstein notified of change in status and will be coming shortly to evaluate the patient.
[2022-02-27] MEDS: cefEPime HCl 2 GM in 0.9 % Sodium Chloride 50 ML IV (10:15)
[2022-02-27] MEDS: Insulin Lispro 100 UNIT/ML 3 ML VIAL SUBCUT ×4 (10:15→21:09)
--- NOTE | 2022-02-27 10:17 | PC.NURSE ---
Lovenox on hold
--- NOTE | 2022-02-27 10:17 | PC.NURSE ---
Central line placed.
--- NOTE | 2022-02-27 10:29 | P.PNCC_ITS ---
Subjective Subjective Date of Service: 02/27/22 Interval History: 81-year-old lady with underlying history of hypertension, diabetes mellitus, prior renal calculi requiring lithotripsy admitted on 02/26/2022 with right flank pain secondary to obstructing renal calculus resulting in gram-negative bacteremia with septic shock now requiring initiation of vasopressor support and transferred to intensive care unit. Critical Care Time (minutes): 45 Physical Exam Vital Signs: Vital Signs: Last Vital Signs Temp 99.5 F 02/27/22 10:18 Pulse 153 H 02/27/22 10:23 Resp 14 02/27/22 08:48 BP 97/58 L 02/27/22 10:23 Pulse Ox 97 02/27/22 07:14 O2 Del Method 02/27/22 07:14 O2 Flow Rate 2 02/27/22 06:14 BMI result Body Mass Index 29.0 Const: General: no acute distress, alert and awake Eyes: Sclerae: sclerae normal EOM: EOMs intact bilaterally Neck: Neck: Yes no lymphadenopathy, Yes trachea midline and Yes supple Resp: Effort & Inspection: normal respiratory effort and no respiratory distress Auscultation: clear to auscultation bilaterally Cardio: Rate: tachycardic Rhythm: regular rhythm Heart sounds: no gallops, no murmurs and no rubs GI: Palpation (GI): Soft to palpation and Other GI palpation findings present ( Nontender) Auscultation: normal bowel sounds Extrem: General: Yes no pedal edema, No clubbing and No cyanosis Objective Data Labs CBC & Chem 7: 02/27/22 06:34 02/27/22 06:34 Labs: Laboratory Results - last 24 hr 02/26/22 02/26/22 02/26/22 18:19 18:19 18:19 WBC 13.3 H RBC 4.00 L Hgb 11.9 L Hct 35.8 L MCV 89.5 MCH 29.8 MCHC 33.2 RDW 14.4 Plt Count 261 MPV 9.6 Immature Gran % (Auto) Neut % (Auto) Lymph % (Auto) [place] % (Auto) Eos % (Auto) Baso % (Auto) Lymph # (Auto) [place] # (Auto) Eos # (Auto) Baso # (Auto) Abs Immat Gran (auto) Absolute Neuts (auto) Absolute Nucleated RBC 0.000 Nucleated RBC % (auto) 0.0 Neutrophils % (Manual) Band Neutrophils % Lymphocytes % (Manual) Monocytes % (Manual) Abs Neuts (Manual) Lymphocytes # (Manual) Monocytes # (Manual) Platelet Estimate Plt Morphology Comment RBC Morphology Sodium 133 L Potassium 4.5 Chloride 100 Carbon Dioxide 22 Anion Gap 16 BUN 31 H Creatinine 1.37 Estim Creat Clear Calc 35.3 Estimated GFR 37 POC Glucose Random Glucose 257 H Lactic Acid 2.0 Calcium 9.1 Troponin I High Sens Lipase 17 Urine Color Urine Appearance Urine pH Ur Specific [place] Urine Protein Urine Glucose (UA) Urine Ketones Urine Blood Urine Nitrite Ur Leukocyte Esterase Urine RBC Urine WBC Urine WBC Clumps Ur Squamous Epith Cells Urine Bacteria Urine Mucus COVID-19 (MARTY) COVID-19 Clin Com 02/26/22 02/26/22 02/26/22 18:19 18:47 21:16 WBC RBC Hgb Hct MCV MCH MCHC RDW Plt Count MPV Immature Gran % (Auto) Neut % (Auto) Lymph % (Auto) [place] % (Auto) Eos % (Auto) Baso % (Auto) Lymph # (Auto) [place] # (Auto) Eos # (Auto) Baso # (Auto) Abs Immat Gran (auto) Absolute Neuts (auto) Absolute Nucleated RBC Nucleated RBC % (auto) Neutrophils % (Manual) Band Neutrophils % Lymphocytes % (Manual) Monocytes % (Manual) Abs Neuts (Manual) Lymphocytes # (Manual) Monocytes # (Manual) Platelet Estimate Plt Morphology Comment RBC Morphology Sodium Potassium Chloride Carbon Dioxide Anion Gap BUN Creatinine Estim Creat Clear Calc Estimated GFR POC Glucose Random Glucose Lactic Acid Calcium Troponin I High Sens 5.7 Lipase Urine Color YELLOW Urine Appearance HAZY Urine pH 6.5 Ur Specific [place] 1.010 Urine Protein TRACE Urine Glucose (UA) 500 H Urine Ketones 5 Urine Blood 3+ H Urine Nitrite POS H Ur Leukocyte Esterase 1+ H Urine RBC 10-14 H Urine WBC 10-14 H Urine WBC Clumps NOTED Ur Squamous Epith Cells 2+ Urine Bacteria 3+ Urine Mucus 2+ COVID-19 (MARTY) Negative COVID-19 Clin Com See Note 02/27/22 02/27/22 02/27/22 06:34 06:34 07:26 WBC 23.1 H RBC 3.59 L Hgb 10.4 L Hct 31.5 L MCV 87.7 MCH 29.0 MCHC 33.0 RDW 14.4 Plt Count 139 L D MPV Not Reportable Immature Gran % (Auto) Cancelled Neut % (Auto) Cancelled Lymph % (Auto) Cancelled [place] % (Auto) Cancelled Eos % (Auto) Cancelled Baso % (Auto) Cancelled Lymph # (Auto) Cancelled [place] # (Auto) Cancelled Eos # (Auto) Cancelled Baso # (Auto) Cancelled Abs Immat Gran (auto) Cancelled Absolute Neuts (auto) Cancelled Absolute Nucleated RBC 0.000 Nucleated RBC % (auto) 0.0 Neutrophils % (Manual) 79 H Band Neutrophils % 11 H Lymphocytes % (Manual) 7 L Monocytes % (Manual) 3 Abs Neuts (Manual) 20.8 H Lymphocytes # (Manual) 1.6 Monocytes # (Manual) 0.7 Platelet Estimate SLIGHTLY DECREASED Plt Morphology Comment NORMAL RBC Morphology NORMAL Sodium 132 L Potassium 4.8 Chloride 106 Carbon Dioxide 18 L Anion Gap 13 BUN 34 H Creatinine 1.64 H Estim Creat Clear Calc 29.4 Estimated GFR 30 POC Glucose 202 H Random Glucose 232 H Lactic Acid Calcium 7.4 L D Troponin I High Sens Lipase Urine Color Urine Appearance Urine pH Ur Specific [place] Urine Protein Urine Glucose (UA) Urine Ketones Urine Blood Urine Nitrite Ur Leukocyte Esterase Urine RBC Urine WBC Urine WBC Clumps Ur Squamous Epith Cells Urine Bacteria Urine Mucus COVID-19 (MARTY) COVID-19 Clin Com 02/27/22 08:48 WBC RBC Hgb Hct MCV MCH MCHC RDW Plt Count MPV Immature Gran % (Auto) Neut % (Auto) Lymph % (Auto) [place] % (Auto) Eos % (Auto) Baso % (Auto) Lymph # (Auto) [place] # (Auto) Eos # (Auto) Baso # (Auto) Abs Immat Gran (auto) Absolute Neuts (auto) Absolute Nucleated RBC Nucleated RBC % (auto) Neutrophils % (Manual) Band Neutrophils % Lymphocytes % (Manual) Monocytes % (Manual) Abs Neuts (Manual) Lymphocytes # (Manual) Monocytes # (Manual) Platelet Estimate Plt Morphology Comment RBC Morphology Sodium Potassium Chloride Carbon Dioxide Anion Gap BUN Creatinine Estim Creat Clear Calc Estimated GFR POC Glucose Random Glucose Lactic Acid 2.0 Calcium Troponin I High Sens Lipase Urine Color Urine Appearance Urine pH Ur Specific [place] Urine Protein Urine Glucose (UA) Urine Ketones Urine Blood Urine Nitrite Ur Leukocyte Esterase Urine RBC Urine WBC Urine WBC Clumps Ur Squamous Epith Cells Urine Bacteria Urine Mucus COVID-19 (MARTY) COVID-19 Clin Com Microbiology Microbiology Results: Microbiology 02/26/22 19:05 Blood - Venous Blood Culture - Preliminary Prelim: GNR Gram Stain only 02/26/22 18:19 Blood - Venous Blood Culture - Preliminary Prelim: GNR Gram Stain only Progress Note: A&P Assessment and plan (1) Septic shock: Status: Acute (2) Gram-negative bacteremia: Status: Acute (3) Diabetes mellitus: Status: Acute (4) Calculus of kidney: Status: Acute (5) Hydronephrosis of right kidney: Status: Acute Plan Assessment: 81-year-old lady with underlying hypertension and diabetes and prior history of kidney stones admitted with flank pain secondary to obstructing right renal calculus resulting in hydronephrosis with septic shock and Gram- negative bacteremia. Plan: Neuro: No acute issues. Cardiac: Septic shock, continue to titrate off pressors as tolerated. Pulmonary: No acute issues. Renal: Right sided hydronephrosis secondary to obstructing renal calculus. Neurology service care appreciated. Planned for stenting. Endo: No acute issues. underlying diabetes mellitus. GI: No acute issues. ID: Gram-negative bacteremia with septic shock secondary to source. Empirically covered with cefepime. Cultures are pending. Heme/Onc: No acute issues. Psych: No acute issues. Miscellaneous: No acute issues. Prophylaxis: Lovenox Diet: NPO for procedure Critical care time spent: 45 minutes excluding separately billable procedures. Quality Stroke Does the patient have a stroke diagnosis?: No VTE Prior VTE?: No VTE Risk Level:: Medical - moderate - high VTE Device Contraindication: Treatment Not Indicated VTE Drug Contraindication: N/A - Med Ordered
--- NOTE | 2022-02-27 10:33 | W.PM.CCHP ---
Procedures Date of Service Date of Service: 02/27/22 Central Line Placement Right IJ: Central Line Comments: Right internal jugular triple-lumen central venous catheter emergently placed for vasopressor support under ultrasound guidance and usual sterile conditions with no immediate complications. X-ray for line position is pending.
--- NOTE | 2022-02-27 11:12 | PM.UROCN ---
History of Present Illness Consult details Consult date: 02/27/22 Narrative: Consultation - urosepsis with obstructing right proximal ureteric stone Reminders an 81-year-old Yi-speaking female. Translation provided by qualified biomedical equipment tech. Presentation to the hospital with 3 day history of right flank pain with associated nausea and vomiting and low-grade fevers. In the emergency room has had declining pressure. WBC 23.1, BP 95 on 55, creatinine 1.6. Imaging KIDNEYS AND URETERS: There is moderate to marked dilation of the intrarenal collecting system, renal pelvis and proximal ureter on the right. There is an approximately 0.9 cm calculus in the ureter on the right at the L4 level. This is faintly suggested on the digital automation machine operator radiograph. There is perinephric and periureteric stranding on the right extending to the region of the duodenum and pancreaticoduodenal groove. No significant dilation of the distal ureter. Blood cultures performed showed Gram-negative rods on initial evaluation Urosepsis. IV antibiotics have been given. Discussion at bedside regarding placement of ureteric stent for decompression. Risks and benefits particularly stent migration and need to repeat procedure in operating room were explained. She is willing to go ahead with bedside cystoscopy and stent placement. Review of Systems Constitutional: Constitutional: Reports as per HPI and Reports no additional constitutional complaints Cardiovascular: Cardiovascular: Reports as per HPI and Reports no additional cardiovascular complaints Respiratory: Respiratory: Reports as per HPI and Reports no additional respiratory complaints Gastrointestinal: Gastrointestinal: Reports as per HPI and Reports no additional gastrointestinal complaints Genitourinary: Genitourinary: Reports as per HPI Musculoskeletal: Musculoskeletal: Reports no additional musculoskeletal complaints and Reports as per HPI Neurologic: Reports system reviewed and no additional complaints, except as documented and Reports as per HPI [facility] Past Medical History Medical History Osteoporosis Family History Family History Father Heart problem Mother No problems noted. Surgical History Surgical History Hx of hysterectomy Hx of lithotripsy Social History Social History Alcohol intake: never Patient Tobacco Use Status: Never used Tobacco Advance Directives: No Advance Directives Information Provided: No Meds Allergies Allergy/AdvReac Type Severity Reaction Status Date / Time Sulfa (Sulfonamide Allergy Mild RASH/ITCH Verified 02/26/22 21:43 Antibiotics) penicillin V Allergy Unknown Unknown Verified 12/23/21 08:32 sulfamethoxazole Allergy Unknown HIVES Verified 02/26/22 23:56 [From BACTRIM] trimethoprim [From BACTRIM] Allergy Unknown HIVES Verified 02/26/22 23:56 From PERCOCET Allergy Unknown RASH Uncoded 12/23/21 08:32 Active Medications: Current Medications Acetaminophen (Acetaminophen 325 Mg Tablet) 650 mg PO Q6H PRN PRN Reason: Pain, Mild (Pain Scale 1-3) Last Admin: 02/27/22 07:33 Dose: 650 mg Dextrose (Dextrose 50 % 25 Gm/50 Ml Syringe) 25 gm IVPUSH Q15M PRN; Protocol PRN Reason: per Hypoglycemia Standing Ord. Enoxaparin Sodium (Enoxaparin Sodium 40 Mg/0.4 Ml Syringe) 40 mg SUBCUT Q24H [place] Last Admin: 02/27/22 10:17 Dose: Not Given Glucose (Glucose Gel 15 Gm Gel..Gram.) 15 gm PO Q15M PRN; Protocol PRN Reason: per Hypoglycemia Standing Ord. Hydromorphone HCl (Hydromorphone Hcl 0.5 Mg/0.5 Ml Syringe) 0.5 mg IVPUSH Q4H PRN; Protocol PRN Reason: Pain, Severe (Pain Scale 7-10) Last Admin: 02/27/22 07:28 Dose: 0.5 mg Norepinephrine Bitartrate (Levophed) 8 mg in 250 mls @ 0 mls/hr IVCONT .Q0M [place]; Protocol Last Titration: 02/27/22 10:23 Dose: 0.09 mcg/kg/min, 13.78 mls/hr Ceftriaxone Sodium 1 gm/ (Sodium Chloride) 50 mls @ 100 mls/hr IV Q24H [place] Cefepime HCl 1 gm/ Sodium (Chloride) 50 mls @ 100 mls/hr IV Q12H [place] Insulin Human Lispro (Insulin Lispro 100 Unit/Ml 3 Ml Vial) 0 unit SUBCUT Q6H [place]; Protocol Sodium Chloride (0.9 % Sodium Chloride Flush 3 Ml Syringe) 3 ml IVFLUSH QSHIFT [place] Last Admin: 02/27/22 10:07 Dose: Not Given Home Medications Medication Instructions Recorded Confirmed Last Taken Type aspirin 81 mg tablet,delayed 81 mg PO BEDTIME 12/26/20 02/27/22 Unknown History release (Adult Low Dose Aspirin) glipizide 10 mg tablet 10 mg PO DAILY 12/26/20 02/26/22 Unknown History hydralazine 25 mg tablet 25 mg PO BID 12/26/20 02/26/22 Unknown History insulin glargine 100 unit/mL (3 14 unit subcut QPM 12/26/20 02/26/22 Unknown History mL) subcutaneous pen (Lantus Solostar U-100 Insulin) metformin 1,000 mg tablet 1,000 mg PO BID 12/26/20 02/27/22 Unknown History atorvastatin 80 mg tablet 80 mg PO BEDTIME 12/23/21 02/26/22 Unknown History blood sugar diagnostic (OneTouch #10 ea 12/23/21 02/26/22 Unknown History Ultra Test) chlorhexidine gluconate 0.12 % 15 ml PO BID 12/23/21 02/26/22 Unknown History mouthwash dulaglutide 0.75 mg/0.5 mL 0.75 mg subcut QWEEK 12/23/21 02/26/22 Unknown History subcutaneous pen injector (Trulicity) furosemide 40 mg tablet 40 mg PO QAM 12/23/21 02/26/22 Unknown History lancets 33 gauge (TRUEplus Lancets) #100 ea 12/23/21 02/26/22 Unknown History loratadine 10 mg tablet 10 mg PO DAILY 12/23/21 02/26/22 Unknown History pen needle, diabetic 31 gauge x #1,200 ea 12/23/21 02/26/22 Unknown History 16 (UltiCare Pen Needle) valsartan 160 mg tablet 160 mg PO QAM 12/23/21 02/26/22 Unknown History Physical Exam Vital Signs: Vital Signs: Last Vital Signs Temp 99.5 F 02/27/22 10:18 Pulse 153 H 02/27/22 10:23 Resp 14 02/27/22 08:48 BP 97/58 L 02/27/22 10:23 Pulse Ox 97 02/27/22 07:14 O2 Del Method 02/27/22 07:14 O2 Flow Rate 2 02/27/22 06:14 BMI result Body Mass Index 29.0 Const: General: cooperative, healthy appearing, comfortable and no acute distress Orientation/consciousness: patient oriented x3 HEENT: Face and sinus: Yes normal facial exam Mouth: moist mucous membranes Neck: Neck: Yes normal visual inspection, Yes full ROM and Yes trachea midline Chest: Chest palpation & inspection: normal inspection of the chest Resp: Effort & Inspection: normal respiratory effort, able to speak in complete sentences and no respiratory distress GI: Inspection: Yes normal to inspection Back/Spine/Pelvis: Cervical Spine: normal cervical lordosis Thoracic/Lumbar Spine: thoracic and lumbar spine normal to inspection Skin: General skin exam: no rashes or lesions noted Neuro: General: patient oriented x3, tone normal and moves all extremities Extrem: General: Yes normal to inspection and Yes capillary refill normal Results Labs Result diagrams: 02/27/22 06:34 02/27/22 06:34 Labs: Abnormal lab results 02/26/22 02/26/22 02/26/22 Range/Units 18:19 18:19 21:16 WBC 13.3 H (4.8-10.8) X10*3/uL RBC 4.00 L (4.20-5.50) X10*6/uL Hgb 11.9 L (12.0-16.0) g/dl Hct 35.8 L (37.0-47.0) % Plt Count (160-400) X10*3/uL Neutrophils % (Manual) (45-73) % Band Neutrophils % (3-5) % Lymphocytes % (Manual) (20-40) % Abs Neuts (Manual) (2.0-8.3) X10*3/uL Sodium 133 L (135-145) mmol/L Carbon Dioxide (22-29) mmol/L BUN 31 H (9-16) mg/dL Creatinine (0.5-1.4) mg/dL POC Glucose (60-115) mg/dL Random Glucose 257 H (60-115) mg/dL Calcium (8.4-10.2) mg/dL Urine Glucose (UA) 500 H (NEG) MG/DL Urine Blood 3+ H (NEG) Urine Nitrite POS H (NEG) Ur Leukocyte Esterase 1+ H (NEG) Urine RBC 10-14 H (0) /HPF Urine WBC 10-14 H (0-4) /HPF 02/27/22 02/27/22 02/27/22 Range/Units 06:34 06:34 07:26 WBC 23.1 H (4.8-10.8) X10*3/uL RBC 3.59 L (4.20-5.50) X10*6/uL Hgb 10.4 L (12.0-16.0) g/dl Hct 31.5 L (37.0-47.0) % Plt Count 139 L D (160-400) X10*3/uL Neutrophils % (Manual) 79 H (45-73) % Band Neutrophils % 11 H (3-5) % Lymphocytes % (Manual) 7 L (20-40) % Abs Neuts (Manual) 20.8 H (2.0-8.3) X10*3/uL Sodium 132 L (135-145) mmol/L Carbon Dioxide 18 L (22-29) mmol/L BUN 34 H (9-16) mg/dL Creatinine 1.64 H (0.5-1.4) mg/dL POC Glucose 202 H (60-115) mg/dL Random Glucose 232 H (60-115) mg/dL Calcium 7.4 L D (8.4-10.2) mg/dL Urine Glucose (UA) (NEG) MG/DL Urine Blood (NEG) Urine Nitrite (NEG) Ur Leukocyte Esterase (NEG) Urine RBC (0) /HPF Urine WBC (0-4) /HPF Short CBC 02/26/22 02/27/22 Range/Units 18:19 06:34 WBC 13.3 H 23.1 H (4.8-10.8) X10*3/uL Hgb 11.9 L 10.4 L (12.0-16.0) g/dl Hct 35.8 L 31.5 L (37.0-47.0) % Plt Count 261 139 L D (160-400) X10*3/uL BMP 02/26/22 02/27/22 18:19 06:34 Sodium 133 L 132 L Potassium 4.5 4.8 Chloride 100 106 Carbon Dioxide 22 18 L BUN 31 H 34 H Creatinine 1.37 1.64 H Calcium 9.1 7.4 L D Urine 02/26/22 Range/Units 21:16 Urine Color YELLOW Urine Appearance HAZY Urine pH 6.5 (5.0-8.0) Ur Specific [place] 1.010 (1.005-1.025) Urine Protein TRACE (NEG-TRACE) MG/DL Urine Glucose (UA) 500 H (NEG) MG/DL All other labs normal. Assessment and Plan (1) Diabetes mellitus: Status: Acute (2) Septic shock: Status: Acute (3) Calculus of kidney: Status: Acute (4) Hydronephrosis of right kidney: Status: Acute Plan Urosepsis in patient with obstructing right ureteric stone and background of diabetes. Urgent decompression required. Procedures Date of Service Date of Service: 02/27/22 Procedure Note Procedure Note: PreOperative Diagnosis: Right proximal ureteric stone Post Operative Diagnosis: Right proximal ureteric stone Procedure: Cystoscopy, right stent placement Surgeon: Dr Adalberto Goldstein Anesthesia: Local Indications for procedure: Urosepsis with obstructing right proximal ureteric stone Procedure: The patient was placed in a frog-leg position prepped in the emergency room. After informed consent was verified. A safety pause time-out was performed. Laterality of procedure and antibiotics were confirmed. appropriate imaging was available A 16 Setswana cystoscope flexible was introduced per urethra. No abnormality was noted. Both ureteric orifices were seen in a normal position. The right ureter was cannulated with an open ended catheter and combination 0.038 glidewire was placed. Infected urine was seen to efflux to the bladder. A 6 Setswana variable length Cook catheter was advanced over the wire and up to the level of the renal pelvis under direct visualization. The wire was removed. A good coil was seen in the bladder. KUB was taken at the bedside and showed good deployment of double-J stent Sixteen Setswana Gonzalez catheter placed The patient tolerated the procedure well and was transferred in stable condition to the recovery area. CPT 54449
--- NOTE | 2022-02-27 11:20 | PC.NURSE ---
dr villar placed stent and vital at bedside pt tolerated procedure well. pt currently being transferred to icu
[2022-02-27 11:43] LABS: Glucose, Whole Blood 269 mg/dL (60-115)
[2022-02-27 16:42] LABS: Glucose, Whole Blood 216 mg/dL (60-115)
[2022-02-27] MEDS: 0.9 % Sodium Chloride Flush 3 ML SYRINGE IVFLUSH ×2 (18:32→21:10)
--- NOTE | 2022-02-27 19:47 | PC.NURSE ---
Admitted from ED status post cystoscopy with stent placement to right ureter. Patient alert/arousable to voice, cooperative. [place]er speaking only, tuck pointer helper used for admission, communication in [place]. Patient calm, cooperative. Continues on levophed. Titrated down to 0.07. Some constipation reported as chronic and SOLE ASSESSOR aware. Patient is voiding about 25 cc/hour light odilon urine with malodorous smell. Still on cefepime and ceftriaxone. Pain much better per patient pain begins at right lower abdominal quadrant and radiates up to right flank and down right leg. Patient declined pain medication when offered, says it is just a little pain. Patient ate dinner 90%. Patient with POC 216, was given 16:30 insulin 4 U per sliding scale and schedule for sliding scale adjusted to QIDACHS per SOLE ASSESSOR as per protocol for non-NPO patient.
[2022-02-27 20:55] LABS: Glucose, Whole Blood 262 mg/dL (60-115)
[2022-02-27] MEDS: cefEPime HCl 1 GM in 0.9 % Sodium Chloride 50 ML IV (21:09)
[2022-02-27] MEDS: Sennosides/Docusate Sodium TABLET 1 TAB PO (21:09)
[2022-02-28] VITALS (20 sets, daily range): BP systolic 100–150; BP diastolic 35–78; PULSE 67–98; RESP 14–24; TEMP 36.3–37.1; O2SAT 93–96; BMI 28.8
[2022-02-28 05:26] LABS: VBG Base Excess -4.1 mmol/L; VBG HCO3 19 mmol/L (22-26); VBG pCO2 30 mmHg; VBG pH 7.41 (7.32-7.43); VBG pO2 42 mmHg
[2022-02-28 05:37] LABS: Venous Blood Gas Refer to POC result
[2022-02-28 05:41] LABS: Basophils Absolute Auto 0.1 X10*3/uL (0.0-0.2); Basophils Percent Auto 0.5 % (0-2); Eosinophils Absolute Auto 0.3 X10*3/uL (0.0-0.4); Eosinophils Percent Auto 1.2 % (0-4); Hematocrit 31.8 % (37.0-47.0); Hemoglobin 10.5 g/dl (12.0-16.0); Imm Gran Abs Auto 0.41 X10*3/uL (0.00-0.03); Imm Gran Pct Auto 1.5 % (0.0-0.4); Lymphocytes Absolute Auto 3.5 X10*3/uL (1.2-4.9); Lymphocytes Percent Auto 12.4 % (20-40); MANUAL DIFF FLAG SCAN; Mean Corpuscular Hemoglobin 29.6 pg (27.0-33.0); Mean Corpuscular Volume 89.6 fL (80.0-98.0); Mean Platelet Volume 10.3 fL (9.4-12.3); Monocytes Absolute Auto 1.5 X10*3/uL (0.1-1.2); Monocytes Percent Auto 5.2 % (2-11); Neutrophils Absolute Auto 22.4 x10*3/uL (2.0-8.3); Neutrophils Percent Auto 79.2 % (45-73); Platelet Count 190 X10*3/uL (160-400); Red Blood Count 3.55 X10*6/uL (4.20-5.50); Red Cell Distribution Width 14.5 % (11.0-16.0); SCAN SMEAR FLAG 1; White Blood Count 28.3 X10*3/uL (4.8-10.8)
[2022-02-28 06:00] LABS: Albumin Level 2.9 g/dL (3.5-5.0); Anion Gap 10 (12-20); Blood Urea Nitrogen 28 mg/dL (9-16); Calcium 7.6 mg/dL (8.4-10.2); Carbon Dioxide 23 mmol/L (22-29); Chloride 108 mmol/L (96-108); Creatinine Clr Calc Pharmacy 39.4; Estimated Glomerular Filt Rate 42; Glucose Random 227 mg/dL (60-115); Magnesium 1.6 mg/dL (1.6-2.6); Phosphorus 1.9 mg/dL (2.7-4.5); Potassium 3.7 mmol/L (3.3-5.1); Sodium 137 mmol/L (135-145)
[2022-02-28 06:01] LABS: SLIDE REVIEW VERIFIED
[2022-02-28 07:13] LABS: Glucose, Whole Blood 218 mg/dL (60-115)
[2022-02-28] MEDS: Sennosides/Docusate Sodium TABLET 1 TAB PO ×2 (09:37→21:12)
[2022-02-28] MEDS: Enoxaparin Sodium 40 MG/0.4 ML SYRINGE SUBCUT (09:38)
[2022-02-28] MEDS: Insulin Lispro 100 UNIT/ML 3 ML VIAL SUBCUT ×4 (09:39→21:12)
[2022-02-28] MEDS: 0.9 % Sodium Chloride Flush 3 ML SYRINGE IVFLUSH ×3 (09:39→21:14)
[2022-02-28] MEDS: Acetaminophen 325 MG TABLET 650 MG PO (09:44)
[2022-02-28] MEDS: Albumin Human 25 % 100 ML IV ×3 (09:48→21:12)
[2022-02-28] MEDS: cefEPime HCl 1 GM in 0.9 % Sodium Chloride 50 ML IV ×2 (09:56→22:47)
[2022-02-28] MEDS: Potassium Phosphate/NS 15 MMOL/250 ML PLAST..BAG 62.5 MMOL IV ×3 (10:34→22:47)
--- NOTE | 2022-02-28 11:01 | PM.CCPN ---
Subjective Subjective Date of Service: 02/28/22 Interval History: 81-year-old lady with underlying history of hypertension, diabetes mellitus, prior renal calculi requiring lithotripsy admitted on 02/26/2022 with right flank pain secondary to obstructing renal calculus resulting in gram-negative bacteremia with septic shock now requiring initiation of vasopressor support and transferred to intensive care unit. Status post stenting by Urology on 02/27/2022. No events overnight, titrated off pressors. Critical Care Time (minutes): 0 Physical Exam Vital Signs: Vital Signs: Last Vital Signs Temp 97.4 F 02/28/22 08:00 Pulse 82 02/28/22 10:00 Resp 22 H 02/28/22 10:00 BP 113/55 L 02/28/22 10:00 Pulse Ox 96 02/28/22 10:00 O2 Del Method 02/28/22 10:00 O2 Flow Rate 2 02/28/22 10:00 BMI result Body Mass Index 28.8 Const: General: no acute distress, alert and awake Eyes: Sclerae: sclerae normal EOM: EOMs intact bilaterally Neck: Neck: Yes no lymphadenopathy, Yes trachea midline and Yes supple Resp: Effort & Inspection: normal respiratory effort and no respiratory distress Auscultation: clear to auscultation bilaterally Cardio: Rate: regular rate Rhythm: regular rhythm Heart sounds: no gallops, no murmurs and no rubs GI: Palpation (GI): Soft to palpation and Other GI palpation findings present ( Nontender) Auscultation: normal bowel sounds Extrem: General: Yes no pedal edema, No clubbing and No cyanosis Objective Data Labs CBC & Chem 7: 02/28/22 05:10 02/28/22 05:10 Labs: Laboratory Results - last 24 hr 02/27/22 02/27/22 02/27/22 11:40 16:28 20:52 WBC RBC Hgb Hct MCV MCH MCHC RDW Plt Count MPV Immature Gran % (Auto) Neut % (Auto) Lymph % (Auto) [place] % (Auto) Eos % (Auto) Baso % (Auto) Lymph # (Auto) [place] # (Auto) Eos # (Auto) Baso # (Auto) Abs Immat Gran (auto) Absolute Neuts (auto) Absolute Nucleated RBC Nucleated RBC % (auto) Smear Tech's Comments VBG pH VBG pCO2 VBG pO2 VBG HCO3 VBG O2 Saturation VBG Base Excess Sodium Potassium Chloride Carbon Dioxide Anion Gap BUN Creatinine Estim Creat Clear Calc Estimated GFR POC Glucose 269 H 216 H 262 H Random Glucose Calcium Phosphorus Magnesium Albumin 02/28/22 02/28/22 02/28/22 05:10 05:10 05:21 WBC 28.3 H RBC 3.55 L Hgb 10.5 L Hct 31.8 L MCV 89.6 MCH 29.6 MCHC 33.0 RDW 14.5 Plt Count 190 D MPV 10.3 Immature Gran % (Auto) 1.5 H Neut % (Auto) 79.2 H Lymph % (Auto) 12.4 L [place] % (Auto) 5.2 Eos % (Auto) 1.2 Baso % (Auto) 0.5 Lymph # (Auto) 3.5 [place] # (Auto) 1.5 H Eos # (Auto) 0.3 Baso # (Auto) 0.1 Abs Immat Gran (auto) 0.41 H Absolute Neuts (auto) 22.4 H Absolute Nucleated RBC 0.000 Nucleated RBC % (auto) 0.0 Smear Tech's Comments VERIFIED VBG pH 7.41 VBG pCO2 30 VBG pO2 42 VBG HCO3 19 L VBG O2 Saturation 74.0 VBG Base Excess -4.1 Sodium 137 Potassium 3.7 D Chloride 108 Carbon Dioxide 23 Anion Gap 10 L BUN 28 H Creatinine 1.22 Estim Creat Clear Calc 39.4 Estimated GFR 42 POC Glucose Random Glucose 227 H Calcium 7.6 L Phosphorus 1.9 L Magnesium 1.6 Albumin 2.9 L D 02/28/22 07:09 WBC RBC Hgb Hct MCV MCH MCHC RDW Plt Count MPV Immature Gran % (Auto) Neut % (Auto) Lymph % (Auto) [place] % (Auto) Eos % (Auto) Baso % (Auto) Lymph # (Auto) [place] # (Auto) Eos # (Auto) Baso # (Auto) Abs Immat Gran (auto) Absolute Neuts (auto) Absolute Nucleated RBC Nucleated RBC % (auto) Smear Tech's Comments VBG pH VBG pCO2 VBG pO2 VBG HCO3 VBG O2 Saturation VBG Base Excess Sodium Potassium Chloride Carbon Dioxide Anion Gap BUN Creatinine Estim Creat Clear Calc Estimated GFR POC Glucose 218 H Random Glucose Calcium Phosphorus Magnesium Albumin Microbiology Microbiology Results: Microbiology 02/26/22 19:05 Blood - Venous Blood Culture - Preliminary Gram negative abdiel 02/26/22 18:19 Blood - Venous Blood Culture - Preliminary Gram negative abdiel 02/26/22 21:16 Urine clean catch - Urine jones top Urine Culture - Preliminary Culture too young to evaluate. Progress Note: A&P Assessment and plan (1) Hydronephrosis of right kidney: Status: Acute (2) Hypertension: Status: Acute (3) Diabetes mellitus: Status: Acute (4) Gram-negative bacteremia: Status: Acute (5) Calculus of kidney: Status: Acute Plan Assessment: 81-year-old lady with underlying hypertension and diabetes and prior history of kidney stones admitted with flank pain secondary to obstructing right renal calculus resulting in hydronephrosis with septic shock and Gram-negative bacteremia. Plan: Neuro: No acute issues. Cardiac: Septic shock, resolved, titrated off pressors. Pulmonary: No acute issues. Renal: Right sided hydronephrosis secondary to obstructing renal calculus. Urology service care appreciated. Status post stenting on 02/27/2022. Endo: No acute issues. Underlying diabetes mellitus. GI: No acute issues. ID: Gram-negative bacteremia with septic shock secondary to source. Empirically covered with cefepime. Cultures are pending. Heme/Onc: No acute issues. Psych: No acute issues. Miscellaneous: No acute issues. Prophylaxis: Lovenox Diet: diabetic Quality Stroke Does the patient have a stroke diagnosis?: No VTE Prior VTE?: No VTE Risk Level:: Medical - moderate - high VTE Device Contraindication: Treatment Not Indicated VTE Drug Contraindication: N/A - Med Ordered
[2022-02-28 11:42] LABS: Glucose, Whole Blood 271 mg/dL (60-115)
[2022-02-28] MEDS: HYDROmorphone HCl 0.5 MG/0.5 ML SYRINGE IVPUSH ×2 (13:45→21:12)
[2022-02-28 16:08] LABS: Glucose, Whole Blood 188 mg/dL (60-115)
--- NOTE | 2022-02-28 19:48 | PC.NURSE ---
Levophed off in morning. [place] [facility] [place] is doing well, ALbumin 2 bottles given . potassium phosphates 2x 15 mmol started, rescheduled third dose, MD aware of 3 x potassium phosphates doses. Patient with pain to back of neck and RLQ and RUQ abdomen and radiating down leg, 3/10 was 4/10 after tylenol, administered dilaudid with good effect. Patient with 100-70 cc urine per hour concentrated via vital. Patient would like to know whether kidney stone is passed or not, need to follow-up with urology. Room air, SpO2 in mid 90's, but require 2 LPM overnight, patient reports suspected PAULO, but no sleep study yet. Patient in sinus rhythm entire shift today. Stands and pivots well to chair. OOB to chair today. No BM. Patient ambulated about 10 feet with assistance. Normally walks independently sometimes uses cane at baseline.
[2022-02-28 21:27] LABS: Glucose, Whole Blood 197 mg/dL (60-115)
[2022-02-28] MEDS: ondansetron HCL 4 MG/2 ML VIAL IVPUSH (22:47)
[2022-03-01] MEDS: Albumin Human 25 % 100 ML IV (03:01)
[2022-03-01 03:36] VITALS: BP 135/65; PULSE 73; RESP 16; TEMP 36.8; O2SAT 92
[2022-03-01 06:32] LABS: MANUAL DIFF FLAG NO
[2022-03-01 06:38] LABS: Basophils Percent Auto 0.2 % (0-2); Eosinophils Absolute Auto 0.2 X10*3/uL (0.0-0.4); Eosinophils Percent Auto 1.3 % (0-4); Hematocrit 27.6 % (37.0-47.0); Imm Gran Abs Auto 0.13 X10*3/uL (0.00-0.03); Imm Gran Pct Auto 0.8 % (0.0-0.4); Lymphocytes Absolute Auto 2.6 X10*3/uL (1.2-4.9); Lymphocytes Percent Auto 16.1 % (20-40); Mean Corpuscular HGB Conc 32.6 g/dl (31.0-35.0); Mean Corpuscular Hemoglobin 29.1 pg (27.0-33.0); Mean Corpuscular Volume 89.3 fL (80.0-98.0); Mean Platelet Volume 10.5 fL (9.4-12.3); Monocytes Absolute Auto 0.8 X10*3/uL (0.1-1.2); Monocytes Percent Auto 4.8 % (2-11); Neutrophils Absolute Auto 12.6 x10*3/uL (2.0-8.3); Neutrophils Percent Auto 76.8 % (45-73); Platelet Count 163 X10*3/uL (160-400); Red Blood Count 3.09 X10*6/uL (4.20-5.50); Red Cell Distribution Width 14.6 % (11.0-16.0); White Blood Count 16.4 X10*3/uL (4.8-10.8)
[2022-03-01 07:18] LABS: Anion Gap 14 (12-20); Blood Urea Nitrogen 23 mg/dL (9-16); Calcium 8.3 mg/dL (8.4-10.2); Carbon Dioxide 21 mmol/L (22-29); Chloride 109 mmol/L (96-108); Creatinine Clr Calc Pharmacy 47.7; Estimated Glomerular Filt Rate 53; Glucose Random 199 mg/dL (60-115); Magnesium 1.7 mg/dL (1.6-2.6); Potassium 4.6 mmol/L (3.3-5.1); Sodium 139 mmol/L (135-145)
[2022-03-01 07:50] LABS: Glucose, Whole Blood 180 mg/dL (60-115)
[2022-03-01 08:00] VITALS: BP 110/54; PULSE 82; RESP 20; TEMP 36.8; O2SAT 92
[2022-03-01] MEDS: cefEPime HCl 1 GM in 0.9 % Sodium Chloride 50 ML IV (08:18)
[2022-03-01] MEDS: Sennosides/Docusate Sodium TABLET 1 TAB PO ×2 (08:19→21:49)
[2022-03-01] MEDS: Enoxaparin Sodium 40 MG/0.4 ML SYRINGE SUBCUT (08:19)
[2022-03-01] MEDS: 0.9 % Sodium Chloride Flush 3 ML SYRINGE IVFLUSH ×3 (08:19→21:49)
[2022-03-01] MEDS: Insulin Lispro 100 UNIT/ML 3 ML VIAL SUBCUT ×4 (08:19→21:49)
[2022-03-01] MEDS: HYDROmorphone HCl 0.5 MG/0.5 ML SYRINGE IVPUSH (08:24)
[2022-03-01] MEDS: Acetaminophen 325 MG TABLET 650 MG PO ×2 (08:24→21:54)
--- NOTE | 2022-03-01 09:13 | MHC.CM.PN ---
IMM 03/01/22, completed at bedside-original to pt and copy in filed in chart. Pt reports she lives alone in an apartment. She is independent at home/community, uses a cane as needed. No prior home services in place. Pt was not able to remember who her PCP is. No Advnaced Directives on file-Pt educated about HCP, she declined at this time, reports is waiting for her daughter to arrive from [place] and will discuss with her. Pt vax'd x2 (Moderna). Her daughter will transport home. D/C Plan: Home Self-Care vs Home with Home New [facility] Service
--- NOTE | 2022-03-01 10:16 | P.PNIM_ITS ---
Subjective Subjective Date of Service: 03/01/22 Interval History: seen and examined feeling better, no R flank pain, has chronic upper back pain denies fever or chills reports constipation x 4 days Review of Systems negative except HPI Physical Exam Vital Signs: Vital Signs: Last Vital Signs Temp 98.3 F 03/01/22 08:00 Pulse 82 03/01/22 08:00 Resp 20 03/01/22 08:00 BP 110/54 L 03/01/22 08:00 Pulse Ox 92 03/01/22 08:00 O2 Del Method 03/01/22 08:00 O2 Flow Rate 2 02/28/22 10:00 BMI result Body Mass Index 28.8 Const: Other: General - no acute distress, appears comfortable Cardiovascular - regular rate and rhythm, S1-S2 Lungs - normal respiratory effort, clear to auscultation bilaterally, no wheezing Abdomen - soft, nontender, no rebound or guarding Extremities - no edema bilaterally Neuro - awake and alert, no focal deficits Objective Data Active Medications Acetaminophen (Acetaminophen 325 Mg Tablet) 650 mg PO Q6H PRN PRN Reason: Pain, Mild (Pain Scale 1-3) Last Admin: 03/01/22 08:24 Dose: 650 mg Documented By: MARIN Dextrose (Dextrose 50 % 25 Gm/50 Ml Syringe) 25 gm IVPUSH Q15M PRN; Protocol PRN Reason: per Hypoglycemia Standing Ord. Enoxaparin Sodium (Enoxaparin Sodium 40 Mg/0.4 Ml Syringe) 40 mg SUBCUT Q24H [place] Last Admin: 03/01/22 08:19 Dose: 40 mg Documented By: MARIN Glucose (Glucose Gel 15 Gm Gel..Gram.) 15 gm PO Q15M PRN; Protocol PRN Reason: per Hypoglycemia Standing Ord. Hydromorphone HCl (Hydromorphone Hcl 0.5 Mg/0.5 Ml Syringe) 0.5 mg IVPUSH Q4H P RN; Protocol PRN Reason: Pain, Severe (Pain Scale 7-10) Last Admin: 03/01/22 08:24 Dose: 0.5 mg Documented By: MARIN Cefepime HCl 1 gm/ Sodium (Chloride) 50 mls @ 100 mls/hr IV Q12H [facility] Last Infusion: 03/01/22 09:40 Dose: 0 mls/hr Documented By: MARIN Insulin Human Lispro (Insulin Lispro 100 Unit/Ml 3 Ml Vial) 0 unit SUBCUT QIDACHS [facility]; Protocol Last Admin: 03/01/22 08:19 Dose: 2 unit Documented By: MARIN Ondansetron HCl (Ondansetron Hcl 4 Mg/2 Ml Vial) 4 mg IVPUSH Q8H PRN PRN Reason: Nausea and Vomiting Last Admin: 02/28/22 22:47 Dose: 4 mg Documented By: GERBER Senna/Docusate Sodium (Sennosides/Docusate Sodium Tablet) 1 tab PO BID [facility] Last Admin: 03/01/22 08:19 Dose: 1 tab Documented By: MARIN Sodium Chloride (0.9 % Sodium Chloride Flush 3 Ml Syringe) 3 ml IVFLUSH QSHIFT [facility] Last Admin: 03/01/22 08:19 Dose: 3 ml Documented By: MARIN Labs CBC & Chem 7: 03/01/22 05:53 03/01/22 05:53 Labs: Laboratory Results - last 24 hr 02/28/22 02/28/22 02/28/22 11:39 16:04 20:44 MCV MCH MCHC RDW Plt Count MPV Immature Gran % (Auto) Neut % (Auto) Lymph % (Auto) [place] % (Auto) Eos % (Auto) Baso % (Auto) Lymph # (Auto) [place] # (Auto) Eos # (Auto) Baso # (Auto) Abs Immat Gran (auto) Absolute Neuts (auto) Absolute Nucleated RBC Nucleated RBC % (auto) Anion Gap Estim Creat Clear Calc Estimated GFR POC Glucose 271 H 188 H 197 H Random Glucose Calcium Phosphorus Magnesium 03/01/22 03/01/22 03/01/22 05:53 05:53 07:38 MCV 89.3 MCH 29.1 MCHC 32.6 RDW 14.6 Plt Count 163 MPV 10.5 Immature Gran % (Auto) 0.8 H Neut % (Auto) 76.8 H Lymph % (Auto) 16.1 L [place] % (Auto) 4.8 Eos % (Auto) 1.3 Baso % (Auto) 0.2 Lymph # (Auto) 2.6 [place] # (Auto) 0.8 Eos # (Auto) 0.2 Baso # (Auto) 0.0 Abs Immat Gran (auto) 0.13 H Absolute Neuts (auto) 12.6 H Absolute Nucleated RBC 0.000 Nucleated RBC % (auto) 0.0 Anion Gap 14 Estim Creat Clear Calc 47.7 Estimated GFR 53 POC Glucose 180 H Random Glucose 199 H Calcium 8.3 L D Phosphorus 3.0 Magnesium 1.7 Microbiology Microbiology Results: Microbiology 02/26/22 19:05 Blood Culture - Final Blood - Venous Escherichia coli 02/26/22 18:19 Blood Culture - Final Blood - Venous Escherichia coli 02/26/22 21:16 Urine Culture - Final Urine clean catch - Urine jones top Assessment and Plan (1) Septic shock: Status: Acute Plan This is a 81-year-old female with a past medical history of hypertension and diabetes with a prior kidney stone in many years ago who presented to the hospital with complaints of right flank pain and was diagnosed with an obstructing right kidney stone. She unfortunately progressed to septic shock and required vasopressor support in the intensive care. A stent has been placed with resolution of her flank pain. She is found to be bacteremic with E coli which is pansensitive. 1. Septic shock secondary to E. coli bacteremia due to obstructing right kidney stone Status post vasopressors Change IV cefepime to IV ceftriaxone and eventually to oral Ceftin probably for 14 days Stent placed by Urology 2. KRISTEN due to obstructing stone versus ATN from septic shock SCr improved monitor 3. DM hold orals use sliding scale 4. HTN hold bp meds 5. Constipation stool softners Full Code DVT pptx, Lovenox Quality Stroke Does the patient have a stroke diagnosis?: No VTE Prior VTE?: No VTE Risk Level:: Medical - moderate - high VTE Device Contraindication: Treatment Not Indicated VTE Drug Contraindication: N/A - Med Ordered
[2022-03-01 11:26] LABS: Glucose, Whole Blood 232 mg/dL (60-115)
[2022-03-01] MEDS: polyethylene glycoL 3350 17 GM POWD.PACK PO (11:33)
[2022-03-01 12:00] VITALS: BP 115/58; PULSE 74; RESP 18; TEMP 36.8; O2SAT 91
[2022-03-01 15:27] VITALS: BP 107/63; PULSE 66; RESP 18; TEMP 36.7; O2SAT 94
[2022-03-01 16:02] LABS: Glucose, Whole Blood 193 mg/dL (60-115)
[2022-03-01 19:21] VITALS: BP 153/69; PULSE 78; RESP 18; TEMP 36.3; O2SAT 90
[2022-03-01 19:44] LABS: Glucose, Whole Blood 235 mg/dL (60-115)
[2022-03-01] MEDS: cefTRIAXone sodium 1 GM in 0.9 % Sodium Chloride 50 ML IV (21:48)
[2022-03-01 23:22] VITALS: BP 131/72; PULSE 76; RESP 20; TEMP 36.2; O2SAT 94
[2022-03-02 02:59] VITALS: BP 140/70; PULSE 70; RESP 16; TEMP 36.6; O2SAT 91
[2022-03-02 06:00] VITALS: BMI 28.5
[2022-03-02 07:17] LABS: Glucose, Whole Blood 163 mg/dL (60-115)
[2022-03-02 07:47] VITALS: BP 156/70; PULSE 68; RESP 20; TEMP 36.6; O2SAT 94
[2022-03-02] MEDS: Insulin Lispro 100 UNIT/ML 3 ML VIAL SUBCUT ×3 (08:34→17:03)
[2022-03-02] MEDS: polyethylene glycoL 3350 17 GM POWD.PACK PO (08:34)
[2022-03-02] MEDS: Sennosides/Docusate Sodium TABLET 1 TAB PO (08:34)
[2022-03-02] MEDS: Enoxaparin Sodium 40 MG/0.4 ML SYRINGE SUBCUT (08:34)
[2022-03-02] MEDS: 0.9 % Sodium Chloride Flush 3 ML SYRINGE IVFLUSH ×2 (08:35→17:04)
[2022-03-02] MEDS: Acetaminophen 325 MG TABLET 650 MG PO (08:41)
[2022-03-02 11:19] LABS: Glucose, Whole Blood 271 mg/dL (60-115)
[2022-03-02] MEDS: Lactulose 20 GM/30 ML SOLUTION PO (11:37)
--- NOTE | 2022-03-02 11:40 | HO.SEPSISX_ITS ---
Sepsis Bolus Exclusion Sepsis Bolus Exclusion This patient met severe sepsis criteria due to the following condition(s):: Docu mentation of septic shock In my clinical judgement the administration of 30 ml/kg of crystalloid would be detrimental to this patient due to the patient's following conditions:: Concern for fluid overload Other (must be specific):: 02/27/22 @ 845am -- LR 1000ml @ 999/hr given; received 3L prior to this Replace the 30 mls/kg with (*zero amount not acceptable): *Note: One of the leal must be documented Crystalloids amount given in mls: (rate must be at least 150cc/hr): 1,000
--- NOTE | 2022-03-02 11:43 | PC.NURSE ---
Indwelling vital removed per Dr. Sheikh orders at 1140. pt dtv between [id number]
[2022-03-02 11:59] VITALS: BP 151/70; PULSE 68; RESP 20; TEMP 36.4; O2SAT 92
--- NOTE | 2022-03-02 12:01 | PM.DS ---
DS: Providers Provider Date of Service: 03/02/22 Date of admission: 02/26/22 22:08 Primary care physician: Unknown Physician Consults: 02/26/22 22:08 Consult to Urology Routine Consulting Provider: Adalberto Goldstein Reason for consultation: kidney stone 02/27/22 09:01 Consult to Critical Care Stat Consulting Provider: Maycol Conway Reason for consultation: level of care eval, septic with obsructing stone, hypotensive DS: Diagnosis Discharge Diagnosis (1) Septic shock: Status: Acute (2) E coli bacteremia: Status: Acute (3) KRISTEN (acute kidney injury): Status: Acute (4) Constipation: Status: Acute DS: Summary Hospital Course Hospital Course: From the admission H&P: 81-year-old female with a past medical history of hypertension, hyperlipidemia, diabetes, osteoporosis presented to the hospital today with a chief complaint of abdominal pain.? Patient reports that over the past 1 week she has been having abdominal pain located mainly on the right flank area; radiating down the legs; denies any urinary frequency urgency or dysuria.? Denies any blood in the urine.? Reports subjective fevers. Denies any chest pain or palpitations.? Review of all other systems is negative except mentioned above ER course: Per ER team patient noted to have abnormal urinalysis consistent with UTI; CT scan showed 0.9 mm obstructing stone in the right ureteral L4 level; patient was given IV antibiotics.? Urology team was notified.? Admitted to the hospital for further management.? His Hospital Course: Patient presented to the hospital with right flank pain and was diagnosed with an obstructing kidney stone. Patient was initiated on intravenous fluids and IV antibiotics. Her hospital course was complicated by septic shock secondary E. Coli bacteremia due to to UTI/pyelonephritis as well as obstructing renal stone. requiring vasopressor support in the intensive care unit. She also had resultant acute kidney injury likely secondary to obstructing stone, however ATN cannot be completely ruled out. The patient had a ureteral stent placed by Urology. Her renal function improved. Her hypotension resolved and in fact she is now becoming hypertensive and hence will restart her home antihypertensives. She will be discharged on 2 weeks of oral cefuroxime. Additionally, the patient complained of chronic constipation for which she was started on a bowel regime. She will be prescribed this upon discharge as well as a referral to Gastroenterology has been provided. The patient was seen and examined on the day of discharge. research professor was used for explaining her diagnoses as well as discharge plan. Patient's friend who helps her with a doctor's visits and medications was also bedside and the same information was provided. Final Discharge Diagnosis: 1. Septic shock due to E coli bacteremia 2. E coli bacteremia due to urinary tract infection/pyelonephritis/obstructing renal stone 3. Acute kidney injury secondary to suspected obstructing kidney stone, however ATN cannot be fully ruled out 4. Constipation Time Spent with Patient Time attestation: Total time spent providing and/or coordinating discharge services: Discharge coordination time: Greater than 30 minutes Quality: Safe Use of Opioids Does Pt have an Active Cancer Diagnosis on the Problem List?: No Quality: Stroke Does the patient have a stroke diagnosis?: No Physical Exam Vital Signs: Vital Signs: Last Vital Signs Temp 97.6 F 03/02/22 11:59 Pulse 68 03/02/22 11:59 Resp 20 03/02/22 11:59 BP 151/70 H 03/02/22 11:59 Pulse Ox 92 03/02/22 11:59 O2 Del Method 03/02/22 11:59 O2 Flow Rate 2 02/28/22 10:00 BMI result Body Mass Index 28.5 Const: Other: General - no acute distress, appears comfortable Cardiovascular - regular rate and rhythm, S1-S2 Lungs - normal respiratory effort, clear to auscultation bilaterally, no wheezing Abdomen - soft, nontender, no rebound or guarding Extremities - no edema bilaterally Neuro - awake and alert, no focal deficits DS: Data Data Completed and Pending Labs on day of discharge: Laboratory Results - last 24 hr 03/01/22 03/01/22 03/02/22 15:58 19:41 07:11 POC Glucose 193 H 235 H 163 H 03/02/22 11:14 POC Glucose 271 H Discharge Plan Discharge Patient Disposition: Home Health Service Discharge Diagnosis: Septic shock E. Coli bacteremia KRISTEN Obstructing renal stone Referrals: Adalberto Goldstein MD [Physician] - 1 Week Ernestina Luu MD [Physician] - 1 Month Physician,Demetrio J [Primary Care Provider] - 1 Week Discharge Medications: New polyethylene glycol 3350 17 gram Powder In Packet 17 g PO DAILY Qty: 30 0RF sennosides-docusate sodium [Senna Plus] 8.6-50 mg Tablet 1 tab PO BID Qty: 60 0RF cefuroxime axetil 500 mg tablet 500 mg PO Q12H Qty: 28 0RF Continued calcium carbonate [Calcium 600] 600 mg calcium (1,500 mg) tablet 600 mg PO BID 90 Days Qty: 180 3RF cholecalciferol (vitamin D3) 25 mcg (1,000 unit) capsule 1,000 unit PO DAILY 90 Days Qty: 90 0RF aspirin [Adult Low Dose Aspirin] 81 mg tablet,delayed release (DR/EC) 81 mg PO BEDTIME glipizide 10 mg tablet 10 mg PO DAILY hydralazine 25 mg tablet 25 mg PO BID metformin 1,000 mg tablet 1,000 mg PO BID Lantus Solostar U-100 Insulin 100 unit/mL (3 mL) insulin pen 14 unit subcut QPM furosemide 40 mg tablet 40 mg PO QAM atorvastatin 80 mg tablet 80 mg PO BEDTIME Trulicity 0.75 mg/0.5 mL pen injector 0.75 mg subcut QWEEK valsartan 160 mg tablet 160 mg PO QAM (DME) lancets [TRUEplus Lancets] 33 gauge misc See Rx Instructions topical TID Qty: 100 Rx Instructions: As directed loratadine 10 mg tablet 10 mg PO DAILY (DME) OneTouch Ultra Test Strip See Rx Instructions .ROUTE TID Qty: 10 Rx Instructions: As directed (DME) pen needle, diabetic [UltiCare Pen Needle] 31 gauge x 5/16 needle See Rx Instructions subcut DAILY Qty: 1200 Rx Instructions: As directed chlorhexidine gluconate 0.12 % mouthwash 15 ml PO BID Discharge Orders: Discharge Order (Routine); Ordered 03/02/22 Ordered By: Gopal Sheikh Diet: Advance to usual diet Activity on Discharge: As tolerated Stand Alone Forms: Patient Portal Discharge page Care Plan Goals: To stay healthy and out of the hospital. Health Concerns: Septic shock E. Coli bacteremia KRISTEN Obstructing renal stone Plan of Treatment: Take cefuroxime for 14 more days. Follow-up with Dr. Goldstein in 1-2 weeks for stent removal. Call his office to schedule follow-up. Preop constipation, take MiraLax and senna. A referral has been given for Gastroenterology, please call them to schedule follow-up. Assessment: see d/c summary
--- NOTE | 2022-03-02 12:28 | MHC.CM.PN ---
Pt has been medically cleared for discharge today; D/C Home Self-Care.
[2022-03-02 15:10] VITALS: BP 133/63; PULSE 72; RESP 14; TEMP 36.7; O2SAT 95
[2022-03-02 16:09] LABS: Glucose, Whole Blood 161 mg/dL (60-115)
== END 2022-03-02 18:34 | disposition home or self-care (01) | DRG 853 ==
LOC: HO.ED 22:08 → HO.EDOVER 22:16 → HO.ICU 02-27 11:35 → HO.IMC 02-28 16:27
PROVIDERS: Internal Medicine Pulmonary Disease; Admitting Provider Hospitalist; Emergency Provider Internal Medicine; PCP Internal Medicine; Visit Provider Family Medicine
DX: A41.51 Sepsis due to Escherichia coli [E. coli] (principal); N17.0 Acute kidney failure with tubular necrosis; R65.21 Severe sepsis with septic shock; N13.6 Pyonephrosis; K59.00 Constipation, unspecified; I10 Essential (primary) hypertension; E11.9 Type 2 diabetes mellitus without complications; Z20.822 Contact with and (suspected) exposure to COVID-19; Z88.0 Allergy status to penicillin; Z88.2 Allergy status to sulfonamides; Z79.82 Long term (current) use of aspirin; Z79.84 Long term (current) use of oral hypoglycemic drugs; Z79.899 Other long term (current) drug therapy
CPT/HCPCS: 36415; 71045; 74018; 74176; 80048; 81001; 82040; 82803; 82947; 83605; 83690; 83735; 84100; 84484; 85007; 85025; 85027; 87040; 87077; 87086; 87186; 87205; 87635; 93005; 96361; 96374; 96375; 99285; J0692; J0696; J1170; J1650; J1885; J2270; J2405; P9047

== ENCOUNTER → 2022-03-17 13:16 | Outpatient (BNVA) | payer OTHER, MEDICAID, SELFPAY | PROVIDERS: PCP Internal Medicine; Visit Provider Urology | DX: N20.0 Calculus of kidney (principal) | CPT/HCPCS: 52310; 99212 ==

== ENCOUNTER 2022-03-26 09:17 | Outpatient (REF) | payer OTHER, SELFPAY ==
[2022-03-26 11:52] LABS: MANUAL DIFF FLAG NO
[2022-03-26 12:18] LABS: Basophils Absolute Auto 0.1 X10*3/uL (0.0-0.2); Eosinophils Absolute Auto 0.3 X10*3/uL (0.0-0.4); Eosinophils Percent Auto 3.1 % (0-4); Hematocrit 36.6 % (37.0-47.0); Hemoglobin 11.7 g/dl (12.0-16.0); Imm Gran Abs Auto 0.04 X10*3/uL (0.00-0.03); Imm Gran Pct Auto 0.4 % (0.0-0.4); Lymphocytes Absolute Auto 2.5 X10*3/uL (1.2-4.9); Lymphocytes Percent Auto 27.1 % (20-40); Mean Corpuscular Volume 90.6 fL (80.0-98.0); Mean Platelet Volume 9.3 fL (9.4-12.3); Monocytes Absolute Auto 0.7 X10*3/uL (0.1-1.2); Monocytes Percent Auto 7.8 % (2-11); Neutrophils Absolute Auto 5.5 x10*3/uL (2.0-8.3); Neutrophils Percent Auto 60.6 % (45-73); Platelet Count 333 X10*3/uL (160-400); Red Blood Count 4.04 X10*6/uL (4.20-5.50)
[2022-03-26 12:52] LABS: Alanine Aminotransferase 15 U/L (0-31); Albumin Level 4.3 g/dL (3.5-5.0); Alkaline Phosphatase 97 U/L (39-117); Anion Gap 13 (12-20); Aspartate Amino Transferase 13 U/L (5-31); Bilirubin Total 0.5 mg/dL (0.0-1.0); Blood Urea Nitrogen 21 mg/dL (9-16); Calcium 9.6 mg/dL (8.4-10.2); Carbon Dioxide 27 mmol/L (22-29); Chloride 103 mmol/L (96-108); Estimated Glomerular Filt Rate 59; Glucose Random 113 mg/dL (60-115); Potassium 4.1 mmol/L (3.3-5.1); Sodium 139 mmol/L (135-145); Total Protein 7.4 g/dL (6.5-8.0)
[2022-03-26 13:14] LABS: Ferritin 46 ng/mL (10-250); TSH reflex Free T4 1.86 uIU/mL (0.32-4.0)
== END 2022-03-26 09:18 | disposition home or self-care (01) ==
LOC: HO.LAB 09:17
PROVIDERS: PCP Internal Medicine; Referring Provider Internal Medicine; Visit Provider Internal Medicine Gastroenterology
DX: K59.00 Constipation, unspecified (principal); N17.9 Acute kidney failure, unspecified
CPT/HCPCS: 36415; 80053; 82728; 84443; 85025; 99202

== ENCOUNTER 2022-04-01 14:13 | Outpatient (REF) | payer OTHER, SELFPAY ==
--- NOTE | ~2022-04-01 | XR_ITS ---
EXAMINATION: XR ABDOMEN KUB CLINICAL INDICATION: Acute kidney failure COMPARISON: X-ray abdomen 02/27/2022 TECHNIQUE: AP view of the abdomen. FINDINGS: There is interval removal of the right internal ureteral stent. No radiopaque renal calculi seen, however, limited as stool in colon overlying the right kidney. There are a few phleboliths in the pelvis. Evidence of previous cholecystectomy. Scattered moderate stool in colon. No organomegaly. There is mild spondylosis of the lumbar spine. XR/XR KUB IMPRESSION: 1. Right renal internal ureteral stent has been removed. No radiopaque renal calculi are seen at this time, however, limited due to stool in the colon overlying the right kidney. 2. Mild constipation.
== END 2022-04-01 14:14 | disposition home or self-care (01) ==
LOC: HO.XRAY 14:13
PROVIDERS: PCP Internal Medicine; Visit Provider Urology
DX: N17.9 Acute kidney failure, unspecified (principal)
CPT/HCPCS: 74018

== ENCOUNTER 2022-04-02 07:48 | Inpatient (IN) | payer OTHER, SELFPAY ==
[2022-04-02] VITALS (15 sets, daily range): BP systolic 102–154; BP diastolic 43–70; PULSE 71–98; RESP 15–20; TEMP 36.2–38.3; O2SAT 92–97; BMI 30.9
--- NOTE | ~2022-04-02 | CT_ITS ---
EXAMINATION: CT abdomen pelvis wo con CLINICAL INFORMATION: Reason for Exam flank pain, hx renal colic COMPARISON: Multiple prior CTs most recent 02/26/2022 TECHNIQUE: Multidetector volumetric imaging was performed from the superior aspect of the liver through the pubic symphysis , noncontrasted study. Sagittal and coronal reformatted images were obtained on the technologist's workstation. This CT examination was performed using dose optimization techniques as appropriate, variously including the following: *Automated exposure control *Adjustment of mA and/or kV according to patient size (this includes techniques or standardized protocols for targeted exams where dose is matched to indication/reason for exam; i.e. extremities or head) *Use of iterative reconstruction technique DLP: 640 mGy-cm FINDINGS: LOWER THORAX: Subsegmental atelectasis periphery left lung base and lingula base. No pleural effusion. HEPATOBILIARY: Assessment of the liver is limited on a noncontrasted study, the liver is normal in size, no focal liver lesion detected. GALLBLADDER: Has been removed. SPLEEN: Spleen is normal in size. PANCREAS: Atrophic fatty replaced. STOMACH AND GASTROINTESTINAL TRACT: Stomach is grossly unremarkable. There is heavy sigmoid diverticulosis without CT evidence of acute diverticulitis. There is no evidence of bowel obstruction. No CT evidence of appendicitis. ADRENALS: No adrenal nodules. KIDNEYS/URETERS: There is severe right renal hydronephrosis and hydroureter, there is a swelling of the right kidney and diffuse perinephric fat stranding suggesting high degree of obstruction, there is 1.3 cm stone found along the mid course of the right ureter refer image 39 series 5. There is 3 mm nonobstructing stone lower calyx left kidney. Left kidney otherwise normal in size and homogeneous texture. URINARY BLADDER: Urinary bladder is unopacified partially distended. PELVIC VISCERA: Unremarkable PERITONEUM: No free air or fluid. LYMPH NODES: No lymphadenopathy. VASCULAR:Abdominal aorta normal in size, no aneurysm found. BONES, ABDOMINAL WALL AND SOFT TISSUES: Age-appropriate changes of the spine and skeletal system, no destructive osteolytic or osteosclerotic bone lesion found CT/CT abdomen pelvis wo con IMPRESSION: *Severe right renal hydronephrosis and hydroureter, due to obstructing stone found in the mid course of the right ureter measure up to 1.3 cm. Right kidney is swollen, there is marked perinephric fat stranding suggesting high degree of obstruction. *Tiny 3 mm nonobstructing stone lower calyx left kidney. *Partial subsegmental atelectasis at left lung bases, lingula base and left lower lobe. *Other noncritical findings are Diverticulosis coli without evidence of acute diverticulitis, surgical clip from prior cholecystectomy, atrophic pancreas.
--- NOTE | ~2022-04-02 | FL_ITS ---
EXAMINATION: XR FLUOROSCOPY WITH IMAGES CLINICAL INFORMATION: Right ureteral calculus COMPARISON: CT abdomen pelvis on 04/02/2022 TECHNIQUE: Fluoroscopy performed by Dr. Adalberto Goldstein. Fluoroscopy time: 0.6 minutes. Cumulative Dose: 24.9 mGy. Images: 2. FINDINGS: Cystoscopy and right retrograde nephrostogram performed. There is an obstructing calculus in the right mid ureter. FL/FL guidance in OR IMPRESSION: Fluoroscopy performed for the urology department. Please see the operative report for additional information.
--- NOTE | 2022-04-02 07:59 | ECG_ITS ---
Test Reason : flank pain Blood Pressure : / mmHG Vent. Rate : 073 BPM Atrial Rate : 073 BPM P-R Int : 176 ms QRS Dur : 078 ms QT Int : 392 ms P-R-T Axes : 044 -17 012 degrees QTc Int : 431 ms Normal sinus rhythm Normal ECG When compared with ECG of 27-FEB-2022 08:25, Vent. rate has decreased BY 87 BPM Referred By: Abby Verduzco Electronically Signed By:BRANDON HUTSON
[2022-04-02 08:43] LABS: MANUAL DIFF FLAG NO
[2022-04-02 08:44] LABS: Basophils Absolute Auto 0.1 X10*3/uL (0.0-0.2); Basophils Percent Auto 0.4 % (0-2); Eosinophils Percent Auto 0.2 % (0-4); Hematocrit 37.2 % (37.0-47.0); Hemoglobin 12.1 g/dl (12.0-16.0); Imm Gran Abs Auto 0.11 X10*3/uL (0.00-0.03); Imm Gran Pct Auto 0.6 % (0.0-0.4); Lymphocytes Percent Auto 5.4 % (20-40); Mean Corpuscular HGB Conc 32.5 g/dl (31.0-35.0); Mean Corpuscular Hemoglobin 29.4 pg (27.0-33.0); Mean Corpuscular Volume 90.3 fL (80.0-98.0); Mean Platelet Volume 9.6 fL (9.4-12.3); Monocytes Absolute Auto 0.7 X10*3/uL (0.1-1.2); Monocytes Percent Auto 3.6 % (2-11); Neutrophils Absolute Auto 16.8 x10*3/uL (2.0-8.3); Neutrophils Percent Auto 89.8 % (45-73); Platelet Count 265 X10*3/uL (160-400); Red Blood Count 4.12 X10*6/uL (4.20-5.50); Red Cell Distribution Width 14.7 % (11.0-16.0); White Blood Count 18.7 X10*3/uL (4.8-10.8)
--- NOTE | 2022-04-02 08:51 | ED_ITS ---
HPI - Abdominal Pain General Chief Complaint: Abdominal Pain Stated Complaint: flank pain Time Seen by Provider: 04/02/22 07:59 Source: patient and park interpreter Mode of arrival: EMS History of Present Illness HPI narrative: 81-year-old female arrives via EMS with a history of renal colic in states that since yesterday she has had right flank pain that is sharp in nature and constant the radiates into her groin and proximal right lower extremity. This is been associated with vomiting as well as chills. Related Data Home Medications Medication Instructions Recorded Confirmed aspirin 81 mg tablet,delayed 81 mg PO BEDTIME 12/26/20 02/27/22 release (Adult Low Dose Aspirin) glipizide 10 mg tablet 10 mg PO DAILY 12/26/20 02/26/22 hydralazine 25 mg tablet 25 mg PO BID 12/26/20 02/26/22 insulin glargine 100 unit/mL (3 14 unit subcut QPM 12/26/20 02/26/22 mL) subcutaneous pen (Lantus Solostar U-100 Insulin) metformin 1,000 mg tablet 1,000 mg PO BID 12/26/20 02/27/22 atorvastatin 80 mg tablet 80 mg PO BEDTIME 12/23/21 02/26/22 blood sugar diagnostic (OneTouch #10 ea 12/23/21 02/26/22 Ultra Test strips) dulaglutide 0.75 mg/0.5 mL 0.75 mg subcut QWEEK 12/23/21 02/26/22 subcutaneous pen injector (Trulicity) furosemide 40 mg tablet 40 mg PO QAM 12/23/21 02/26/22 lancets 33 gauge (TRUEplus Lancets) #100 ea 12/23/21 02/26/22 pen needle, diabetic 31 gauge x #1,200 ea 12/23/21 02/26/22 5/16 (UltiCare Pen Needle) valsartan 160 mg tablet 160 mg PO QAM 12/23/21 02/26/22 sennosides 8.6 mg tablet (senna) 8.6 mg PO BID 03/17/22 Previous Rx's Medication Instructions Recorded calcium carbonate 600 mg calcium 600 mg PO BID 90 days #180 tabs 11/12/21 (1,500 mg) tablet (Calcium) polyethylene glycol 3350 17 gram 17 g PO DAILY #30 ea 03/02/22 oral powder packet cholecalciferol (vitamin D3) 25 25 mcg PO QAM #90 caps 03/16/22 mcg (1,000 unit) capsule (Vitamin D3) sodium,potassium,mag sulfates 17.5 See Rx Instructions PO .COMPLEX 03/26/22 gram-3.13 gram-1.6 gram oral soln #354 mL (Suprep Bowel Prep Kit) Allergies Allergy/AdvReac Type Severity Reaction Status Date / Time Sulfa (Sulfonamide Allergy Mild RASH/ITCH Verified 03/26/22 09:45 Antibiotics) penicillin V Allergy Unknown Unknown Verified 03/26/22 09:45 sulfamethoxazole Allergy Unknown HIVES Verified 03/26/22 09:45 [From BACTRIM] trimethoprim [From BACTRIM] Allergy Unknown HIVES Verified 03/26/22 09:45 oxycodone [From Percocet] Allergy Unknown Verified 03/26/22 09:45 Review of Systems Review of Systems Pertinent positives and negatives as stated in HPI 10 point review of systems is otherwise negative. FORMERLY [facility], 1928–1983 Past Medical History Source: nursing notes reviewed Medical History Calculus of kidney Diabetes mellitus Gram-negative bacteremia Hydronephrosis of right kidney Hypertension Osteoporosis Septic shock UTI (urinary tract infection) Surgical History Hx of hysterectomy Hx of lithotripsy Family History Family History Father Heart problem Mother No problems noted. Social History Social History Household Members: None Housing: Apartment Do you presently have visiting nurse or other home services: No Alcohol intake: never Patient Tobacco Use Status: Never used Tobacco e-Cigarette/Vaping Use: Never Used Advance Directives: No Advance Directives Information Provided: Yes service: No Current occupational status: disabled Physical Exam ED Vital Signs: Vital Signs - 24 hr 04/02/22 08:17 04/02/22 10:49 Temperature 98.7 F 99.8 F Pulse Rate 71 98 Respiratory Rate 18 15 Blood Pressure 139/50 L 125/54 L Pulse Oximetry 95 97 Oxygen Delivery Method Room Air Room Air BMI result Body Mass Index 30.9 VITAL SIGNS: Reviewed. GENERAL: Well developed, well nourished, in moderate distress. HEAD: Normocephalic/atraumatic EYES: PERRLA, EOMI EARS: Ext canals without abnormality OROPHARYNX: no oral lesions noted, posterior pharynx clear LUNGS: Normal breath sounds. No adventitious sounds or accessory muscle use. SpO2<95> CARDIOVASCULAR: Regular rate and rhythm without noted murmurs, no JVD or lower extremity edema. ABDOMEN: Soft, right-sided abdominal discomfort without rebound, non-distended with bowel sounds. MUSCULOSKELETAL: No tenderness, deformities, or effusions noted on gross inspection. EXTREMITIES: No cyanosis, clubbing or edema. SKIN: Inspection of the skin reveals no rashes NEUROLOGIC: Alert and oriented x 4. Strength and sensation to light touch were grossly intact x 4. Course Course Course Narrative: 0853: 81-year-old female with history and clinical presentation most consistent with renal colic, will evaluate for possible appendicitis or UTI although this is felt to be far less likely. Review of all investigations consistent with infection as well as severe obstructive uropathy. Patient received lactic acid/blood cultures/1 L of IV fluids that she does not meet criteria for severe sepsis fluids/antibiotics. Urology has been consult today and notified and I discussed the case with the inpatient hospitalist accepts admission. Reevaluation(s) Reevaluation #1: Informed by the lab that lactic acid was 3.2, patient does not meet criteria for sepsis fluids at this time but is already receiving fluids for suspected obstructive uropathy. Time: 09:55 Reevaluation #2: Consult to Urology. Time: 11:01 MDM - Abdominal Pain Lab Data Result diagrams: 04/02/22 08:24 04/02/22 09:18 Labs: Lab Results 04/02/22 04/02/22 04/02/22 Range/Units 08:24 09:18 09:18 WBC 18.7 H (4.8-10.8) X10*3/uL RBC 4.12 L (4.20-5.50) X10*6/uL Hgb 12.1 (12.0-16.0) g/dl Hct 37.2 (37.0-47.0) % MCV 90.3 (80.0-98.0) fL MCH 29.4 (27.0-33.0) pg MCHC 32.5 (31.0-35.0) g/dl RDW 14.7 (11.0-16.0) % Plt Count 265 (160-400) X10*3/uL MPV 9.6 (9.4-12.3) fL Immature Gran % (Auto) 0.6 H (0.0-0.4) % Neut % (Auto) 89.8 H (45-73) % Lymph % (Auto) 5.4 L (20-40) % [place] % (Auto) 3.6 (2-11) % Eos % (Auto) 0.2 (0-4) % Baso % (Auto) 0.4 (0-2) % Lymph # (Auto) 1.0 L (1.2-4.9) X10*3/uL [place] # (Auto) 0.7 (0.1-1.2) X10*3/uL Eos # (Auto) 0.0 (0.0-0.4) X10*3/uL Baso # (Auto) 0.1 (0.0-0.2) X10*3/uL Abs Immat Gran (auto) 0.11 H (0.00-0.03) X10*3/uL Absolute Neuts (auto) 16.8 H (2.0-8.3) x10*3/uL Absolute Nucleated RBC 0.000 (0.0-0.012) X10*3/uL Nucleated RBC % (auto) 0.0 (0.0-0.2) /100WBC Sodium 138 (135-145) mmol/L Potassium 4.4 (3.3-5.1) mmol/L Chloride 106 (96-108) mmol/L Carbon Dioxide 21 L (22-29) mmol/L Anion Gap 15 (12-20) BUN 22 H (9-16) mg/dL Creatinine 1.18 (0.5-1.4) mg/dL Estim Creat Clear Calc 39.3 Estimated GFR 44 Random Glucose 174 H (60-115) mg/dL Lactic Acid 3.2 H* (0.5-2.0) mmol/L Calcium 8.6 D (8.4-10.2) mg/dL Total Bilirubin 0.5 (0.0-1.0) mg/dL AST 14 (5-31) U/L ALT 14 (0-31) U/L Alkaline Phosphatase 107 (39-117) U/L Total Protein 7.1 (6.5-8.0) g/dL Albumin 4.0 (3.5-5.0) g/dL Urine Color Urine Appearance Urine pH (5.0-8.0) Ur Specific [place] (1.005-1.025) Urine Protein (NEG-TRACE) MG/DL Urine Glucose (UA) (NEG) MG/DL Urine Ketones (NEG) MG/DL Urine Blood (NEG) Urine Nitrite (NEG) Ur Leukocyte Esterase (NEG) Urine RBC (0) /HPF Urine WBC (0-4) /HPF Ur Squamous Epith Cells /LPF Urine Bacteria /LPF 04/02/22 Range/Units 10:48 WBC (4.8-10.8) X10*3/uL RBC (4.20-5.50) X10*6/uL Hgb (12.0-16.0) g/dl Hct (37.0-47.0) % MCV (80.0-98.0) fL MCH (27.0-33.0) pg MCHC (31.0-35.0) g/dl RDW (11.0-16.0) % Plt Count (160-400) X10*3/uL MPV (9.4-12.3) fL Immature Gran % (Auto) (0.0-0.4) % Neut % (Auto) (45-73) % Lymph % (Auto) (20-40) % [place] % (Auto) (2-11) % Eos % (Auto) (0-4) % Baso % (Auto) (0-2) % Lymph # (Auto) (1.2-4.9) X10*3/uL [place] # (Auto) (0.1-1.2) X10*3/uL Eos # (Auto) (0.0-0.4) X10*3/uL Baso # (Auto) (0.0-0.2) X10*3/uL Abs Immat Gran (auto) (0.00-0.03) X10*3/uL Absolute Neuts (auto) (2.0-8.3) x10*3/uL Absolute Nucleated RBC (0.0-0.012) X10*3/uL Nucleated RBC % (auto) (0.0-0.2) /100WBC Sodium (135-145) mmol/L Potassium (3.3-5.1) mmol/L Chloride (96-108) mmol/L Carbon Dioxide (22-29) mmol/L Anion Gap (12-20) BUN (9-16) mg/dL Creatinine (0.5-1.4) mg/dL Estim Creat Clear Calc Estimated GFR Random Glucose (60-115) mg/dL Lactic Acid (0.5-2.0) mmol/L Calcium (8.4-10.2) mg/dL Total Bilirubin (0.0-1.0) mg/dL AST (5-31) U/L ALT (0-31) U/L Alkaline Phosphatase (39-117) U/L Total Protein (6.5-8.0) g/dL Albumin (3.5-5.0) g/dL Urine Color YELLOW Urine Appearance CLOUDY Urine pH 6.0 (5.0-8.0) Ur Specific [place] 1.025 (1.005-1.025) Urine Protein NEG (NEG-TRACE) MG/DL Urine Glucose (UA) 250 H (NEG) MG/DL Urine Ketones NEG (NEG) MG/DL Urine Blood 2+ H (NEG) Urine Nitrite NEG (NEG) Ur Leukocyte Esterase 2+ H (NEG) Urine RBC 5-9 H (0) /HPF Urine WBC TNTC H (0-4) /HPF Ur Squamous Epith Cells 1+ /LPF Urine Bacteria TRACE /LPF ECG Data Attestation: I personally reviewed and interpreted this ECG as follows: Prior ECG tracings: available for review Interpretation: Normal sinus rhythm, HR-73, no STEMI, AK/QRS/QTC is within normal limits. Critical Care Time Critical Care Time Critical Care Time: Yes Total Critical Care Time: 30 Attestation: I personally attest to this time spent taking care of the patient. Discharge Plan Discharge Clinical Impression: Obstruction, uropathy, Hydronephrosis due to obstruction of ureter, Sepsis, Diabetes Patient Disposition: Admitted As Inpatient
[2022-04-02] MEDS: Ketorolac Tromethamine 30 MG/ML VIAL 15 MG IVPUSH (08:57)
[2022-04-02] MEDS: ondansetron HCL 4 MG/2 ML VIAL IVPUSH (08:57)
[2022-04-02] MEDS: 0.9 % Sodium Chloride 1,000 ML 999 ML IV (08:58)
--- NOTE | 2022-04-02 09:03 | PC.NURSE ---
Lab called for recollection of Chemistry labs. RN & Tech aware.
--- NOTE | 2022-04-02 09:45 | PC.NURSE ---
Patient to CT at this time.
[2022-04-02 09:49] LABS: Alanine Aminotransferase 14 U/L (0-31); Alkaline Phosphatase 107 U/L (39-117); Anion Gap 15 (12-20); Aspartate Amino Transferase 14 U/L (5-31); Bilirubin Total 0.5 mg/dL (0.0-1.0); Blood Urea Nitrogen 22 mg/dL (9-16); Calcium 8.6 mg/dL (8.4-10.2); Carbon Dioxide 21 mmol/L (22-29); Chloride 106 mmol/L (96-108); Creatinine Clr Calc Pharmacy 39.3; Estimated Glomerular Filt Rate 44; Glucose Random 174 mg/dL (60-115); Potassium 4.4 mmol/L (3.3-5.1); Sodium 138 mmol/L (135-145); Total Protein 7.1 g/dL (6.5-8.0)
[2022-04-02 09:59] LABS: Lactic Acid 3.2 mmol/L (0.5-2.0)
[2022-04-02 10:56] LABS: Appearance Urine CLOUDY; Color Urine YELLOW; Glucose Urine UA 250 MG/DL (NEG); Leukocyte Esterase Urine 2+ (NEG); Nitrite Urine NEG (NEG); Specific Gravity - Urine 1.025 (1.005-1.025); UACC Culture Trigger YES; Urine Blood 2+ (NEG); Urine Ketones NEG (NEG); Urine Protein NEG (NEG-TRACE)
[2022-04-02 11:08] LABS: WBC Urine TNTC /HPF (0-4)
[2022-04-02 11:09] LABS: Bacteria Urine TRACE /LPF; Squamous Epithelial Cell Urine 1+ /LPF
[2022-04-02] MEDS: cefTRIAXone sodium 1 GM in 0.9 % Sodium Chloride 50 ML IV (11:22)
[2022-04-02] MEDS: fentaNYL citrate/PF 100 MCG/2 ML VIAL 25 MCG IVPUSH (11:22)
[2022-04-02 11:25] LABS: Reflex Lactate? Lactic Acid Added
[2022-04-02 11:56] LABS: COVID-19 Test Negative (Negative); IDNOW Serial# 16C4AD1C
--- NOTE | 2022-04-02 12:18 | PM.IMHP ---
History of Present Illness Date of Service: 04/02/22 Attending physician on admission: Gopal Sheikh Chief Complaint: obstructive uropathy 81 y/o female with history significant for insulin dependent type 2 diabetes, htn, hld, osteoporosis, nephrolithiasis s/p lithotripsy, and ckd stage 3 presenting to the ED for right flank pain, vomiting, and chills. Woke in the middle of the night with 10/10 right flank pain radiating to rihgt groin and proximal RLE. Had vomiting episode x4 at home. Reporting minimal urinary output at home. No fevers, chills, dysuria, hematuria, or urgency. Had recent admission last month for obstructing ureteral stone and uti/pyelonephritis. Found to have septic shock and admitted to ICU. Had ureteral stent placed by urology with improvement in renal function. and discharged on 2 weeks cefuroxime. Left Stent was removed outpatient on 03/[address] scan in ED showed severe right renal hydronephrosis and hydroureter due to obstructing stone of right ureter measuring 1.3cm and perinephric fat stranding. In the ED, WBC of 18.7. Renal function slightly decreased from baseline with cr 1.18 and bun 22. Lactic acid of 3.2, with repeat of 2.0 at 2 hours. Electrolytes stable. Urine with 3+leukocytes, culture pending. Has been treated with NS, 1g rocephin, and ondansetron. Given single dose fentanyl for pain. Reports 7/10 right flank pain currently and has vital cath in place. [place] interpretor assisted with interview. Review of Systems Review of Systems: General: No fevers, malaise, unintentional weight loss Cardiovascular: No chest pain, palpitations, or leg edema Respiratory: No shortness of breath, wheezing, cough GI: +RUQ pain, +n/v : +decreased urinary output Back: +right flank pain Neuro: No headaches, weakness, paresthesias Skin: No rashes or lesions [facility] Medical History Calculus of kidney Diabetes mellitus Gram-negative bacteremia Hydronephrosis of right kidney Hypertension Osteoporosis Septic shock UTI (urinary tract infection) Family History Father Heart problem Mother No problems noted. Surgical History Hx of hysterectomy Hx of lithotripsy Social History Household Members: None Housing: Apartment Do you presently have visiting nurse or other home services: No Alcohol intake: never Patient Tobacco Use Status: Never used Tobacco e-Cigarette/Vaping Use: Never Used Advance Directives: No Advance Directives Information Provided: Yes service: No Current occupational status: disabled Meds Allergies Allergy/AdvReac Type Severity Reaction Status Date / Time Sulfa (Sulfonamide Allergy Mild RASH/ITCH Verified 03/26/22 09:45 Antibiotics) penicillin V Allergy Unknown Unknown Verified 03/26/22 09:45 sulfamethoxazole Allergy Unknown HIVES Verified 03/26/22 09:45 [From BACTRIM] trimethoprim [From BACTRIM] Allergy Unknown HIVES Verified 03/26/22 09:45 oxycodone [From Percocet] Allergy Unknown Verified 03/26/22 09:45 Active Medications: Current Medications Pharmacy Consult (Consult Rx Perform Med Rec) 1 each MISCELLANE ONCE PRN PRN Reason: Consult order Home Medications Medication Instructions Recorded Confirmed Last Taken Type aspirin 81 mg tablet,delayed 81 mg PO BEDTIME 12/26/20 04/02/22 04/01/22 History release (Adult Low Dose Aspirin) glipizide 10 mg tablet 10 mg PO DAILY 12/26/20 04/02/22 04/01/22 History hydralazine 25 mg tablet 25 mg PO BID 12/26/20 04/02/22 04/01/22 History insulin glargine 100 unit/mL (3 14 unit subcut BEDTIME 12/26/20 04/02/22 04/01/22 History mL) subcutaneous pen (Lantus Solostar U-100 Insulin) metformin 1,000 mg tablet 1,000 mg PO BID 12/26/20 04/02/22 04/01/22 History atorvastatin 80 mg tablet 80 mg PO BEDTIME 12/23/21 04/02/22 04/01/22 History blood sugar diagnostic (OneTouch #10 ea 12/23/21 04/02/22 Unknown History Ultra Test strips) dulaglutide 0.75 mg/0.5 mL 0.75 mg subcut QWEEK 12/23/21 04/02/22 03/30/22 History subcutaneous pen injector (Trulicity) furosemide 40 mg tablet 40 mg PO DAILY 12/23/21 04/02/22 04/01/22 History lancets 33 gauge (TRUEplus Lancets) #100 ea 12/23/21 04/02/22 Unknown History pen needle, diabetic 31 gauge x #1,200 ea 12/23/21 04/02/22 Unknown History 16 (UltiCare Pen Needle) valsartan 160 mg tablet 160 mg PO DAILY 12/23/21 04/02/22 04/01/22 History sennosides 8.6 mg tablet (senna) 8.6 mg PO BID 03/17/22 04/02/22 Unknown History cholecalciferol (vitamin D3) 25 25 mcg PO DAILY 04/02/22 04/02/22 04/01/22 History mcg (1,000 unit) capsule (Vitamin D3) loratadine 10 mg tablet 1 tab PO DAILY PRN Allergic 04/02/22 04/02/22 Unknown History Symptoms Physical Exam Vital Signs and Narrative: Vital Signs: Last Vital Signs Temp 99.8 F 04/02/22 10:49 Pulse 98 04/02/22 10:49 Resp 15 04/02/22 10:49 BP 125/54 L 04/02/22 10:49 Pulse Ox 97 04/02/22 10:49 O2 Del Method 04/02/22 10:49 BMI result Body Mass Index 30.9 Constitutional - Awake and Alert, No apparent distress Eyes - PERRLA, EOMI Cardiovascular - S1S2, RRR, No edema Respiratory - Normal lung expansion, Normal respiratory effort, No respiratory distress, CTA bilaterally Gastrointestinal - RUQ and RLL ttp without guarding or rebound, nondistended, +BS - +Right CVA tenderness Extremities - no calf tenderness bilaterally, no swelling Musculoskeletal - Normal inspection, normal ROM Skin - Warm/Dry Neurological - Alert & oriented x3, No focal deficit Psychological - Appropriate affect Results Labs CBC and Chem 7: 04/02/22 08:24 04/02/22 09:18 Labs: Laboratory Results - last 24 hr 04/02/22 04/02/22 04/02/22 08:24 09:18 09:18 MCV 90.3 MCH 29.4 MCHC 32.5 RDW 14.7 Plt Count 265 MPV 9.6 Immature Gran % (Auto) 0.6 H Neut % (Auto) 89.8 H Lymph % (Auto) 5.4 L [place] % (Auto) 3.6 Eos % (Auto) 0.2 Baso % (Auto) 0.4 Lymph # (Auto) 1.0 L [place] # (Auto) 0.7 Eos # (Auto) 0.0 Baso # (Auto) 0.1 Abs Immat Gran (auto) 0.11 H Absolute Neuts (auto) 16.8 H Absolute Nucleated RBC 0.000 Nucleated RBC % (auto) 0.0 Anion Gap 15 Estim Creat Clear Calc 39.3 Estimated GFR 44 Random Glucose 174 H Lactic Acid 3.2 H* Lactic Acid F/U @ 2Hr Calcium 8.6 D Total Bilirubin 0.5 AST 14 ALT 14 Alkaline Phosphatase 107 Total Protein 7.1 Albumin 4.0 Urine Color Urine Appearance Urine pH Ur Specific [place] Urine Protein Urine Glucose (UA) Urine Ketones Urine Blood Urine Nitrite Ur Leukocyte Esterase Urine RBC Urine WBC Ur Squamous Epith Cells Urine Bacteria COVID-19 (MARTY) COVID-19 [employer] 04/02/22 04/02/22 04/02/22 10:48 11:31 11:31 MCV MCH MCHC RDW Plt Count MPV Immature Gran % (Auto) Neut % (Auto) Lymph % (Auto) [place] % (Auto) Eos % (Auto) Baso % (Auto) Lymph # (Auto) [place] # (Auto) Eos # (Auto) Baso # (Auto) Abs Immat Gran (auto) Absolute Neuts (auto) Absolute Nucleated RBC Nucleated RBC % (auto) Anion Gap Estim Creat Clear Calc Estimated GFR Random Glucose Lactic Acid Lactic Acid F/U @ 2Hr 2.0 Calcium Total Bilirubin AST ALT Alkaline Phosphatase Total Protein Albumin Urine Color YELLOW Urine Appearance CLOUDY Urine pH 6.0 Ur Specific [place] 1.025 Urine Protein NEG Urine Glucose (UA) 250 H Urine Ketones NEG Urine Blood 2+ H Urine Nitrite NEG Ur Leukocyte Esterase 2+ H Urine RBC 5-9 H Urine WBC TNTC H Ur Squamous Epith Cells 1+ Urine Bacteria TRACE COVID-19 (MARTY) Negative COVID-19 Clin Com See Note Imaging Radiologist's Impressions: Impressions Abdomen/Pelvis CT 04/02/22 10:06 IMPRESSION: *Severe right renal hydronephrosis and hydroureter, due to obstructing stone found in the mid course of the right ureter measure up to 1.3 cm. Right kidney is swollen, there is marked perinephric fat stranding suggesting high degree of obstruction. *Tiny 3 mm nonobstructing stone lower calyx left kidney. *Partial subsegmental atelectasis at left lung bases, lingula base and left lower lobe. *Other noncritical findings are Diverticulosis coli without evidence of acute diverticulitis, surgical clip from prior cholecystectomy, atrophic pancreas. Assessment and Plan (1) Obstruction, uropathy: Status: Acute (2) Hydronephrosis due to obstruction of ureter: Status: Acute (3) UTI (urinary tract infection): Status: Acute Plan 81 y/o female with history significant for insulin dependent type 2 diabetes, htn, hld, osteoporosis, nephrolithiasis s/p lithotripsy, and ckd stage 3 presenting to the ED for right flank pain, vomiting, and chills being admitted for obstructive uropathy and UTI. 1-Obstructive uropathy -1.3 cm obstructing right ureteral stone with severe hydronephrosis and hydroureter. Renal function essentially at baseline. Continue monitoring renal function daily -Urology consult placed -Continue vital catheter -NPO diet until seen by urology -IV hydration with NS -Hydromorphone prn for pain 2-UTI/pyelonephritis -secondary to obstruction -WBC 18.7. Lactic acid improved to 2.0. Monitor for sepsis. Recent admission for septic shock 3-Insulin dependent type 2 diabetes -NPO for now -SSI insuling ordered. Hold PO diabetes medication and home insulin 4-HTN- stable -Hold bp meds for now 5-CKD stage 3-stable -Renal function minimally decreased from baseline -Monitor BMP daily DVT prophylaxis- lovenox Full code Patient requires inpatient stay of at least 2 midnights as has severe hydronephrosis with obstructive uropathy requiring close monitoring of renal function and vital catheter. Quality Stroke Does the patient have a stroke diagnosis?: No VTE Prior VTE?: No VTE Risk Level:: Medical - moderate - high VTE Device Contraindication: Treatment Not Indicated VTE Drug Contraindication: N/A - Med Ordered
--- NOTE | 2022-04-02 12:36 | PHA.MEDREC ---
Pharmacy Consult ? Medication Reconciliation Pharmacy has completed the medication reconciliation. Patient is a poor historian of medications, gets them all in a medbox. Called and verified most recent medbox medications with [employer]. Used educational sign language interpreter services for med rec.
--- NOTE | 2022-04-02 14:33 | PC.NURSE ---
Patient spiked a fever and her oxygen levels dropped to high 80s. Patient placed on 2L oxygen, provider made aware of oxygen and fever of 101
[2022-04-02] MEDS: Enoxaparin Sodium 40 MG/0.4 ML SYRINGE SUBCUT (14:36)
[2022-04-02] MEDS: Acetaminophen Supp 650 MG SUPP.RECT PR (14:37)
--- NOTE | 2022-04-02 16:34 | P.CNUR_ITS ---
History of Present Illness Consult details Consult date: 04/02/22 Narrative: Consulting complaint - right ureteric stent with hydroureteronephrosis Yusra is an 81-year-old female Had presented in January with urosepsis from obstructing right ureteric stone Stent placed Stent had fallen out last week Plan for intervention was in place Presented to hospital with persistent right flank pain and question of recurrent UTI Imaging shows 1 cm mid right ureteric stone with hydroureteronephrosis Creatinine 1.2, WBC 18.7 Review of Systems Constitutional: Constitutional: Reports as per HPI and Reports no additional constitutional complaints Cardiovascular: Cardiovascular: Reports as per HPI and Reports no additional cardiovascular complaints Respiratory: Respiratory: Reports as per HPI and Reports no additional respiratory complaints Gastrointestinal: Gastrointestinal: Reports as per HPI and Reports no addit ional gastrointestinal complaints Genitourinary: Genitourinary: Reports as per HPI Musculoskeletal: Musculoskeletal: Reports no additional musculoskeletal complaints and Reports as per HPI Neurologic: Reports system reviewed and no additional complaints, except as documented and Reports as per HPI PMFSH Past Medical History Medical History Calculus of kidney Diabetes mellitus Gram-negative bacteremia Hydronephrosis of right kidney Hypertension Osteoporosis Septic shock UTI (urinary tract infection) Family History Family History Father Heart problem Mother No problems noted. Surgical History Surgical History Hx of hysterectomy Hx of lithotripsy Social History Social History Household Members: None Housing: Apartment Do you presently have visiting nurse or other home services: No Alcohol intake: never Patient Tobacco Use Status: Never used Tobacco e-Cigarette/Vaping Use: Never Used Advance Directives: No Advance Directives Information Provided: Yes service: No Current occupational status: disabled Meds Allergies Allergy/AdvReac Type Severity Reaction Status Date / Time Sulfa (Sulfonamide Allergy Mild RASH/ITCH Verified 03/26/22 09:45 Antibiotics) penicillin V Allergy Unknown Unknown Verified 03/26/22 09:45 sulfamethoxazole Allergy Unknown HIVES Verified 03/26/22 09:45 [From BACTRIM] trimethoprim [From BACTRIM] Allergy Unknown HIVES Verified 03/26/22 09:45 oxycodone [From Percocet] Allergy Unknown Verified 03/26/22 09:45 Active Medications: Current Medications Enoxaparin Sodium (Enoxaparin Sodium 40 Mg/0.4 Ml Syringe) 40 mg SUBCUT Q24H [facility] Last Admin: 04/02/22 14:36 Dose: 40 mg Hydromorphone HCl (Hydromorphone Hcl 0.5 Mg/0.5 Ml Syringe) 0.25 mg IVPUSH Q4H PRN; Protocol PRN Reason: Pain, Severe (Pain Scale 7-10) Sodium Chloride (Ns) 1,000 mls @ 100 mls/hr IVCONT .Q10H [place] Ceftriaxone Sodium 1 gm/ (Sodium Chloride) 50 mls @ 100 mls/hr IV Q24H [facility] Insulin Human Lispro (Insulin Lispro 100 Unit/Ml 3 Ml Vial) 0 unit SUBCUT QIDACHS [facility]; Protocol Stop: 04/03/22 14:55 Ondansetron HCl (Ondansetron Hcl 4 Mg/2 Ml Vial) 4 mg IVPUSH Q8H PRN PRN Reason: Nausea and Vomiting Pharmacy Consult (Consult Rx Perform Med Rec) 1 each MISCELLANE ONCE PRN PRN Reason: Consult order Sodium Chloride (0.9 % Sodium Chloride Flush 3 Ml Syringe) 3 ml IVFLUSH QSHIFT [facility] Home Medications Medication Instructions Recorded Confirmed Last Taken Type aspirin 81 mg tablet,delayed 81 mg PO BEDTIME 12/26/20 04/02/22 04/01/22 History release (Adult Low Dose Aspirin) glipizide 10 mg tablet 10 mg PO DAILY 12/26/20 04/02/22 04/01/22 History hydralazine 25 mg tablet 25 mg PO BID 12/26/20 04/02/22 04/01/22 History insulin glargine 100 unit/mL (3 14 unit subcut BEDTIME 12/26/20 04/02/22 04/01/22 History mL) subcutaneous pen (Lantus Solostar U-100 Insulin) metformin 1,000 mg tablet 1,000 mg PO BID 12/26/20 04/02/22 04/01/22 History atorvastatin 80 mg tablet 80 mg PO BEDTIME 12/23/21 04/02/22 04/01/22 History blood sugar diagnostic (OneTouch #10 ea 12/23/21 04/02/22 Unknown History Ultra Test strips) dulaglutide 0.75 mg/0.5 mL 0.75 mg subcut QWEEK 12/23/21 04/02/22 03/30/22 History subcutaneous pen injector (Trulicity) furosemide 40 mg tablet 40 mg PO DAILY 12/23/21 04/02/22 04/01/22 History lancets 33 gauge (TRUEplus Lancets) #100 ea 12/23/21 04/02/22 Unknown History pen needle, diabetic 31 gauge x #1,200 ea 12/23/21 04/02/22 Unknown History 01/04 (UltiCare Pen Needle) valsartan 160 mg tablet 160 mg PO DAILY 12/23/21 04/02/22 04/01/22 History sennosides 8.6 mg tablet (senna) 8.6 mg PO BID 03/17/22 04/02/22 Unknown History cholecalciferol (vitamin D3) 25 25 mcg PO DAILY 04/02/22 04/02/22 04/01/22 History mcg (1,000 unit) capsule (Vitamin D3) loratadine 10 mg tablet 1 tab PO DAILY PRN Allergic 04/02/22 04/02/22 Unknown History Symptoms Physical Exam Vital Signs: Vital Signs: Last Vital Signs Temp 101.0 F H 04/02/22 14:32 Pulse 98 04/02/22 14:32 Resp 16 04/02/22 14:32 BP 110/43 L 04/02/22 14:32 Pulse Ox 97 04/02/22 14:32 O2 Del Method 04/02/22 14:32 O2 Flow Rate 2 04/02/22 14:32 BMI result Body Mass Index 30.9 Const: General: cooperative, healthy appearing, comfortable and no acute distress Orientation/consciousness: patient oriented x3 HEENT: Face and sinus: Yes normal facial exam Mouth: moist mucous membranes Neck: Neck: Yes normal visual inspection, Yes full ROM and Yes trachea midline Chest: Chest palpation & inspection: normal inspection of the chest Resp: Effort & Inspection: normal respiratory effort, able to speak in complete sentences and no respiratory distress GI: Inspection: Yes normal to inspection Back/Spine/Pelvis: Cervical Spine: normal cervical lordosis Thoracic/Lumbar Spine: thoracic and lumbar spine normal to inspection Skin: General skin exam: no rashes or lesions noted Neuro: General: patient oriented x3, tone normal and moves all extremities Extrem: General: Yes normal to inspection and Yes capillary refill normal Results Labs Result diagrams: 04/02/22 08:24 04/02/22 09:18 Labs: Abnormal lab results 04/02/22 04/02/22 04/02/22 Range/Units 08:24 09:18 09:18 WBC 18.7 H (4.8-10.8) X10*3/uL RBC 4.12 L (4.20-5.50) X10*6/uL Immature Gran % (Auto) 0.6 H (0.0-0.4) % Neut % (Auto) 89.8 H (45-73) % Lymph % (Auto) 5.4 L (20-40) % Lymph # (Auto) 1.0 L (1.2-4.9) X10*3/uL Abs Immat Gran (auto) 0.11 H (0.00-0.03) X10*3/uL Absolute Neuts (auto) 16.8 H (2.0-8.3) x10*3/uL Carbon Dioxide 21 L (22-29) mmol/L BUN 22 H (9-16) mg/dL Random Glucose 174 H (60-115) mg/dL Lactic Acid 3.2 H* (0.5-2.0) mmol/L Urine Glucose (UA) (NEG) MG/DL Urine Blood (NEG) Ur Leukocyte Esterase (NEG) Urine RBC (0) /HPF Urine WBC (0-4) /HPF 04/02/22 Range/Units 10:48 WBC (4.8-10.8) X10*3/uL RBC (4.20-5.50) X10*6/uL Immature Gran % (Auto) (0.0-0.4) % Neut % (Auto) (45-73) % Lymph % (Auto) (20-40) % Lymph # (Auto) (1.2-4.9) X10*3/uL Abs Immat Gran (auto) (0.00-0.03) X10*3/uL Absolute Neuts (auto) (2.0-8.3) x10*3/uL Carbon Dioxide (22-29) mmol/L BUN (9-16) mg/dL Random Glucose (60-115) mg/dL Lactic Acid (0.5-2.0) mmol/L Urine Glucose (UA) 250 H (NEG) MG/DL Urine Blood 2+ H (NEG) Ur Leukocyte Esterase 2+ H (NEG) Urine RBC 5-9 H (0) /HPF Urine WBC TNTC H (0-4) /HPF Short CBC 04/02/22 Range/Units 08:24 WBC 18.7 H (4.8-10.8) X10*3/uL Hgb 12.1 (12.0-16.0) g/dl Hct 37.2 (37.0-47.0) % Plt Count 265 (160-400) X10*3/uL BMP 04/02/22 09:18 Sodium 138 Potassium 4.4 Chloride 106 Carbon Dioxide 21 L BUN 22 H Creatinine 1.18 Calcium 8.6 D Liver Function 04/02/22 Range/Units 09:18 Total Bilirubin 0.5 (0.0-1.0) mg/dL AST 14 (5-31) U/L ALT 14 (0-31) U/L Alkaline Phosphatase 107 (39-117) U/L Albumin 4.0 (3.5-5.0) g/dL Urine 04/02/22 Range/Units 10:48 Urine Color YELLOW Urine Appearance CLOUDY Urine pH 6.0 (5.0-8.0) Ur Specific [place] 1.025 (1.005-1.025) Urine Protein NEG (NEG-TRACE) MG/DL Urine Glucose (UA) 250 H (NEG) MG/DL All other labs normal. Assessment and Plan (1) Hydronephrosis due to obstruction of ureter: Status: Acute Plan Ureteroscopy We discussed the nature of the decision and reasonable alternatives for performing the above surgery. Interventions include chemical dissolution, ESWL, ureteroscopy with laser lithotripsy and stent placement, PCNL. Options such as medical therapy were discussed. The relative uncertainties and benefits related to each alternate procedure were adequately discussed. General surgical risks including, but not limited to, pain, bleeding, infection, myocardial infarction, pulmonary embolus, deep vein thrombosis and cerebrovascular accident which may result in further hospitalization were discussed. Full disclosure of the procedure as well as all major risks, benefits and complications were discussed including but not limited to damage to the urethra, bladder and kidney infection, damage to the ureter, stent migration or malposition, scarring to the renal pelvis, remnant stone fragments, subsequent stone passage with need for secondary procedures. The overall secondary procedure rate is approximately 10-15%. The success rate of the procedure was discussed. Success of the procedure in the short-term does not necessarily guarantee that long-term success will be maintained. Suitable follow up will need to be maintained. The patient showed understanding of discussion and wishes to proceed with - cystoscopy, retrograde, ureteroscopy, possible lithotripsy/stone basketing and stent on the right side Procedures Date of Service Date of Service: 04/02/22
--- NOTE | 2022-04-02 17:21 | HO.ANESPROP2 ---
Documented by User: Edilia Knutson MD 04/02/22 19:06 [facility] Active Problems Active Problems: All Active Problems (Updated 04/02/22 @ 14:59 by CORRY Siddiqi) UTI (urinary tract infection) (Acute) Obstruction, uropathy (Acute) Hydronephrosis due to obstruction of ureter (Acute) Sepsis (Acute) Diabetes (Acute) Constipation (Acute) KRISTEN (acute kidney injury) (Acute) E coli bacteremia (Acute) Osteoporosis (Acute) Past Medical History Medical History Calculus of kidney Diabetes mellitus Gram-negative bacteremia Hydronephrosis of right kidney Hypertension Osteoporosis Septic shock UTI (urinary tract infection) Functional capacity: independent ambulation Patient : No Family History Family History Father Heart problem Mother No problems noted. Family history of problems with anesthesia: No Surgical History Surgical History Hx of hysterectomy Hx of lithotripsy History of Problems with Anesthesia: No Social History Social History Household Members: None Housing: Apartment Do you presently have visiting nurse or other home services: No Alcohol intake: never Patient Tobacco Use Status: Never used Tobacco e-Cigarette/Vaping Use: Never Used Advance Directives: No Advance Directives Information Provided: Yes Patient : No service: No Current occupational status: disabled Meds Allergies Allergy/AdvReac Type Severity Reaction Status Date / Time Sulfa (Sulfonamide Allergy Mild RASH/ITCH Verified 03/26/22 09:45 Antibiotics) penicillin V Allergy Unknown Unknown Verified 03/26/22 09:45 sulfamethoxazole Allergy Unknown HIVES Verified 03/26/22 09:45 [From BACTRIM] trimethoprim [From BACTRIM] Allergy Unknown HIVES Verified 03/26/22 09:45 oxycodone [From Percocet] Allergy Unknown Verified 03/26/22 09:45 Active Medications: Current Medications Enoxaparin Sodium (Enoxaparin Sodium 40 Mg/0.4 Ml Syringe) 40 mg SUBCUT Q24H [place] Last Admin: 04/02/22 14:36 Dose: 40 mg Hydromorphone HCl (Hydromorphone Hcl 0.5 Mg/0.5 Ml Syringe) 0.25 mg IVPUSH Q4H PRN; Protocol PRN Reason: Pain, Severe (Pain Scale 7-10) Sodium Chloride (Ns) 1,000 mls @ 100 mls/hr IVCONT .Q10H [facility] Ceftriaxone Sodium 1 gm/ (Sodium Chloride) 50 mls @ 100 mls/hr IV Q24H [facility] Insulin Human Lispro (Insulin Lispro 100 Unit/Ml 3 Ml Vial) 0 unit SUBCUT QIDACHS [facility]; Protocol Stop: 04/03/22 14:55 Ondansetron HCl (Ondansetron Hcl 4 Mg/2 Ml Vial) 4 mg IVPUSH Q8H PRN PRN Reason: Nausea and Vomiting Pharmacy Consult (Consult Rx Perform Med Rec) 1 each MISCELLANE ONCE PRN PRN Reason: Consult order Sodium Chloride (0.9 % Sodium Chloride Flush 3 Ml Syringe) 3 ml IVFLUSH QSHIFT [facility] Home Medications Medication Instructions Recorded Confirmed Last Taken Type aspirin 81 mg tablet,delayed 81 mg PO BEDTIME 12/26/20 04/02/22 04/01/22 History release (Adult Low Dose Aspirin) glipizide 10 mg tablet 10 mg PO DAILY 12/26/20 04/02/22 04/01/22 History hydralazine 25 mg tablet 25 mg PO BID 12/26/20 04/02/22 04/01/22 History insulin glargine 100 unit/mL (3 14 unit subcut BEDTIME 12/26/20 04/02/22 04/01/22 History mL) subcutaneous pen (Lantus Solostar U-100 Insulin) metformin 1,000 mg tablet 1,000 mg PO BID 12/26/20 04/02/22 04/01/22 History atorvastatin 80 mg tablet 80 mg PO BEDTIME 12/23/21 04/02/22 04/01/22 History blood sugar diagnostic (OneTouch #10 ea 12/23/21 04/02/22 Unknown History Ultra Test strips) dulaglutide 0.75 mg/0.5 mL 0.75 mg subcut QWEEK 12/23/21 04/02/22 03/30/22 [facility] furosemide 40 mg tablet 40 mg PO DAILY 12/23/21 04/02/22 04/01/22 History lancets 33 gauge (TRUEplus Lancets) #100 ea 12/23/21 04/02/22 Unknown History pen needle, diabetic 31 gauge x #1,200 ea 12/23/21 04/02/22 Unknown History 01/04 (UltiCare Pen Needle) valsartan 160 mg tablet 160 mg PO DAILY 12/23/21 04/02/22 04/01/22 History sennosides 8.6 mg tablet (senna) 8.6 mg PO BID 03/17/22 04/02/22 Unknown History cholecalciferol (vitamin D3) 25 25 mcg PO DAILY 04/02/22 04/02/22 04/01/22 History mcg (1,000 unit) capsule (Vitamin D3) loratadine 10 mg tablet 1 tab PO DAILY PRN Allergic 04/02/22 04/02/22 Unknown History Symptoms Exam Exam Date and Time: April 02, 2022 172 Height,Weight and Vital Signs: Height 5 ft 4 in Weight 81.647 kg Last Vital Signs Temp 98.9 F 04/02/22 17:05 Pulse 89 04/02/22 17:05 Resp 16 04/02/22 17:05 BP 110/58 L 04/02/22 17:05 Pulse Ox 97 04/02/22 17:05 O2 Del Method 04/02/22 17:05 O2 Flow Rate 2 04/02/22 17:05 Pertinent Lab Results Pertinent Lab Results: Laboratory Tests 04/02/22 04/02/22 04/02/22 08:24 09:18 09:18 WBC 18.7 H RBC 4.12 L Hgb 12.1 Hct 37.2 MCV 90.3 MCH 29.4 MCHC 32.5 RDW 14.7 Plt Count 265 MPV 9.6 Immature Gran % (Auto) 0.6 H Neut % (Auto) 89.8 H Lymph % (Auto) 5.4 L [place] % (Auto) 3.6 Eos % (Auto) 0.2 Baso % (Auto) 0.4 Lymph # (Auto) 1.0 L [place] # (Auto) 0.7 Eos # (Auto) 0.0 Baso # (Auto) 0.1 Abs Immat Gran (auto) 0.11 H Absolute Neuts (auto) 16.8 H Absolute Nucleated RBC 0.000 Nucleated RBC % (auto) 0.0 Sodium 138 Potassium 4.4 Chloride 106 Carbon Dioxide 21 L Anion Gap 15 BUN 22 H Creatinine 1.18 Estim Creat Clear Calc 39.3 Estimated GFR 44 Random Glucose 174 H Lactic Acid 3.2 H* Lactic Acid F/U @ 2Hr Calcium 8.6 D Total Bilirubin 0.5 AST 14 ALT 14 Alkaline Phosphatase 107 Total Protein 7.1 Albumin 4.0 Urine Color Urine Appearance Urine pH Ur Specific [place] Urine Protein Urine Glucose (UA) Urine Ketones Urine Blood Urine Nitrite Ur Leukocyte Esterase Urine RBC Urine WBC Ur Squamous Epith Cells Urine Bacteria COVID-19 ([facility]) COVID-19 [employer] Com 04/02/22 04/02/22 04/02/22 10:48 11:31 11:31 WBC RBC Hgb Hct MCV MCH MCHC RDW Plt Count MPV Immature Gran % (Auto) Neut % (Auto) Lymph % (Auto) [place] % (Auto) Eos % (Auto) Baso % (Auto) Lymph # (Auto) [place] # (Auto) Eos # (Auto) Baso # (Auto) Abs Immat Gran (auto) Absolute Neuts (auto) Absolute Nucleated RBC Nucleated RBC % (auto) Sodium Potassium Chloride Carbon Dioxide Anion Gap BUN Creatinine Estim Creat Clear Calc Estimated GFR Random Glucose Lactic Acid Lactic Acid F/U @ 2Hr 2.0 Calcium Total Bilirubin AST ALT Alkaline Phosphatase Total Protein Albumin Urine Color YELLOW Urine Appearance CLOUDY Urine pH 6.0 Ur Specific [place] 1.025 Urine Protein NEG Urine Glucose (UA) 250 H Urine Ketones NEG Urine Blood 2+ H Urine Nitrite NEG Ur Leukocyte Esterase 2+ H Urine RBC 5-9 H Urine WBC TNTC H Ur Squamous Epith Cells 1+ Urine Bacteria TRACE COVID-19 ([facility]) Negative COVID-19 Clin Com See Note Airway Mallampati Class: II TM Dist: >3cm Neck ROM: Full Heart: RRR Lungs: CTA Assessment and Plan Final Anesthetic Review Family History of Problems with Anesthesia: No History of Problems with Anesthesia: No Documented by User: Stiven Knutson MD 04/02/22 17:26 [facility] Past Medical History Medical History Calculus of kidney Diabetes mellitus Gram-negative bacteremia Hydronephrosis of right kidney Hypertension Osteoporosis Septic shock UTI (urinary tract infection) Family History Family History Father Heart problem Mother No problems noted. Surgical History Surgical History Hx of hysterectomy Hx of lithotripsy Social History Social History Household Members: None Housing: Apartment Do you presently have visiting nurse or other home services: No Alcohol intake: never Patient Tobacco Use Status: Never used Tobacco e-Cigarette/Vaping Use: Never Used Advance Directives: No Advance Directives Information Provided: Yes Patient : No service: No Current occupational status: disabled Meds Allergies Allergy/AdvReac Type Severity Reaction Status Date / Time Sulfa (Sulfonamide Allergy Mild RASH/ITCH Verified 03/26/22 09:45 Antibiotics) penicillin V Allergy Unknown Unknown Verified 03/26/22 09:45 sulfamethoxazole Allergy Unknown HIVES Verified 03/26/22 09:45 [From BACTRIM] trimethoprim [From BACTRIM] Allergy Unknown HIVES Verified 03/26/22 09:45 oxycodone [From Percocet] Allergy Unknown Verified 03/26/22 09:45 Home Medications Medication Instructions Recorded Confirmed Last Taken Type aspirin 81 mg tablet,delayed 81 mg PO BEDTIME 12/26/20 04/02/22 04/01/22 History release (Adult Low Dose Aspirin) glipizide 10 mg tablet 10 mg PO DAILY 12/26/20 04/02/22 04/01/22 History hydralazine 25 mg tablet 25 mg PO BID 12/26/20 04/02/22 04/01/22 History insulin glargine 100 unit/mL (3 14 unit subcut BEDTIME 12/26/20 04/02/22 04/01/22 History mL) subcutaneous pen (Lantus Solostar U-100 Insulin) metformin 1,000 mg tablet 1,000 mg PO BID 12/26/20 04/02/22 04/01/22 History atorvastatin 80 mg tablet 80 mg PO BEDTIME 12/23/21 04/02/22 04/01/22 History blood sugar diagnostic (OneTouch #10 ea 12/23/21 04/02/22 Unknown History Ultra Test strips) dulaglutide 0.75 mg/0.5 mL 0.75 mg subcut QWEEK 12/23/21 04/02/22 03/30/22 History subcutaneous pen injector ([employer]ulicity) furosemide 40 mg tablet 40 mg PO DAILY 12/23/21 04/02/22 04/01/22 History lancets 33 gauge (TRUEplus Lancets) #100 ea 12/23/21 04/02/22 Unknown History pen needle, diabetic 31 gauge x #1,200 ea 12/23/21 04/02/22 Unknown History 16 (UltiCare Pen Needle) valsartan 160 mg tablet 160 mg PO DAILY 12/23/21 04/02/22 04/01/22 History sennosides 8.6 mg tablet (senna) 8.6 mg PO BID 03/17/22 04/02/22 Unknown History cholecalciferol (vitamin D3) 25 25 mcg PO DAILY 04/02/22 04/02/22 04/01/22 History mcg (1,000 unit) capsule (Vitamin D3) loratadine 10 mg tablet 1 tab PO DAILY PRN Allergic 04/02/22 04/02/22 Unknown History Symptoms Assessment and Plan Assessment Anesthesia Assessment: Anesthesia Plan Discussed and Chart Reviewed Final Anesthetic Review NPO: Yes ASA Class: III Final Preanesthetic Review: No Changes in Pt Med Stat, Meds/Allgs Chart Reviewed, Consent Obtained/Reviewed and Anes Risks/Benef Reviewed Patient Risk: Intermediate Procedure Risk: Intermediate Anesthetic Plan Anesthetic Plan: GA Disposition: Standard PACU
[2022-04-02 17:41] LABS: Glucose, Whole Blood 140 mg/dL (60-115)
[2022-04-02] MEDS: Lactated Ringers 1,000 ML 100 ML IVCONT ×2 (17:49→22:02)
--- NOTE | 2022-04-02 17:51 | MHC.SHP ---
Pre-Procedural Eval Section A Date of Service: 04/02/22 The patient is an INPATIENT: Yes Changes since office visit: No Cold of Flu in the past 2 weeks, No New Medical Problems, No Changes in Medication and No Patient answered all questions The History & Physical has been completed within 30 days and I have reviewed it.: Yes Section B Chief Complaint: obstructive uropathy Allergies: Allergies Allergy/AdvReac Type Severity Reaction Status Date / Time Sulfa (Sulfonamide Allergy Mild RASH/ITCH Verified 03/26/22 09:45 Antibiotics) penicillin V Allergy Unknown Unknown Verified 03/26/22 09:45 sulfamethoxazole Allergy Unknown HIVES Verified 03/26/22 09:45 [From BACTRIM] trimethoprim [From BACTRIM] Allergy Unknown HIVES Verified 03/26/22 09:45 oxycodone [From Percocet] Allergy Unknown Verified 03/26/22 09:45 Plan Diagnosis/Plan: Unchanged ( cystoscopy, right retrograde, right ureteroscopy with laser lithotripsy and stent placement) I have reviewed the history and physical and performed a pertinent physical examination on my patient. No changes have occurred unless specified.
--- NOTE | 2022-04-02 18:47 | W.PM.OPN ---
Operative Note Operative Note Date of Service: 04/02/22 Narrative: PreOperative Diagnosis: mid ureteric right renal stone with hydronephrosis Post Operative Diagnosis: mid ureteric right renal stone with hydronephrosis Procedure: - cystoscopy, right retrograde - right ureteroscopy, laser lithotripsy, stone basketing Surgeon: Dr Adalberto Goldstein Anesthesia: General Indications for procedure: had admission in February for urosepsis. Stent placed. Stent came out through her bladder this week. Had persistent pain. Presented to emergency room. Stone seen mid right ureter. Elevated lactate. Rehydrated. Plan for intervention with stone. Procedure: After informed consent was verified patient was brought to the operating placed in supine position. Anesthesia was administered per protocol. Patient was placed in modified dorsal lithotomy position and prepped and draped in a sterile fashion. Safety pause time-out and side of surgery confirmed. Antibiotics confirmed. A 22 Tristanian cystoscope was inserted per urethra. Bladder was normal in its entirety. Both ureteric orifices were in normal position. The Right ureteric orifice was cannulated and a retrograde examination was performed. filling defect right mid ureter with proximal hydronephrosis . A Sensor guidewire was placed up to the level of the renal pelvis under fluoroscopy. The rigid cystoscope was removed. dilator not required since had prior stent that fell out earlier this week The semi rigid ureteral scope was placed alongside the Sensor guidewire. stone encountered it was soft and easily to break up with the laser. The right ureter was aspirated. Attempt was made to basket however the basket CT through the stone matrix. A decision was made not to place stent since she had dilated ureter and really needs to flush all material. Dose of Lasix given in operating room The bladder was emptied. The patient tolerated the procedure well and was extubated in the operating room, and transferred in stable condition to the recovery area. Pathology: none Drains: none
[2022-04-02 20:21] LABS: Glucose, Whole Blood 175 mg/dL (60-115)
[2022-04-02] MEDS: 0.9 % Sodium Chloride 1,000 ML 100 ML IVCONT (20:44)
[2022-04-02] MEDS: 0.9 % Sodium Chloride Flush 3 ML SYRINGE IVFLUSH (20:44)
[2022-04-02] MEDS: Phenazopyridine HCL 100 MG TABLET PO (20:57)
[2022-04-02] MEDS: Insulin Lispro 100 UNIT/ML 3 ML VIAL SUBCUT (20:58)
[2022-04-03 03:41] VITALS: BP 111/59; PULSE 62; RESP 16; TEMP 36.1; O2SAT 93
[2022-04-03 06:25] LABS: MANUAL DIFF FLAG NO
[2022-04-03 06:34] LABS: Basophils Absolute Auto 0.1 X10*3/uL (0.0-0.2); Basophils Percent Auto 0.5 % (0-2); Eosinophils Absolute Auto 0.1 X10*3/uL (0.0-0.4); Eosinophils Percent Auto 0.9 % (0-4); Hematocrit 30.6 % (37.0-47.0); Hemoglobin 9.9 g/dl (12.0-16.0); Imm Gran Abs Auto 0.06 X10*3/uL (0.00-0.03); Imm Gran Pct Auto 0.4 % (0.0-0.4); Lymphocytes Absolute Auto 1.8 X10*3/uL (1.2-4.9); Mean Corpuscular HGB Conc 32.4 g/dl (31.0-35.0); Mean Corpuscular Hemoglobin 29.6 pg (27.0-33.0); Mean Corpuscular Volume 91.6 fL (80.0-98.0); Mean Platelet Volume 9.4 fL (9.4-12.3); Monocytes Percent Auto 6.6 % (2-11); Neutrophils Absolute Auto 11.8 x10*3/uL (2.0-8.3); Neutrophils Percent Auto 79.6 % (45-73); Platelet Count 196 X10*3/uL (160-400); Red Blood Count 3.34 X10*6/uL (4.20-5.50); White Blood Count 14.8 X10*3/uL (4.8-10.8)
[2022-04-03 06:59] LABS: Anion Gap 13 (12-20); Blood Urea Nitrogen 24 mg/dL (9-16); Calcium 7.7 mg/dL (8.4-10.2); Carbon Dioxide 24 mmol/L (22-29); Chloride 107 mmol/L (96-108); Creatinine Clr Calc Pharmacy 40.3; Estimated Glomerular Filt Rate 45; Glucose Random 127 mg/dL (60-115); Potassium 3.7 mmol/L (3.3-5.1); Sodium 140 mmol/L (135-145)
[2022-04-03 07:55] VITALS: BP 134/57; PULSE 67; RESP 14; TEMP 36.2; O2SAT 94
[2022-04-03] MEDS: Lactated Ringers 1,000 ML 100 ML IVCONT (08:07)
[2022-04-03] MEDS: 0.9 % Sodium Chloride Flush 3 ML SYRINGE IVFLUSH ×2 (08:08→17:06)
[2022-04-03 08:14] LABS: Glucose, Whole Blood 101 mg/dL (60-115)
[2022-04-03] MEDS: traMADoL HCL 50 MG TABLET PO ×2 (08:18→17:14)
--- NOTE | 2022-04-03 10:12 | MHC.CM.PN ---
IMM addressed, white copy to patient/yellow filed in chart Patient is Estonian speaking Patient reports she lives alone, her building has an elevator. She is independent at home and community, uses a cane as needed. Denies any home sevices. She is Yohanid kallie'vika x2 (MRNA), PCP is Louie Narayanan. She was educated about HCP, she declined to complete one at this time. Her friend, Isabel, will transport home. D/C Plan: Home (self-care) vs Home with New [facility]
--- NOTE | 2022-04-03 10:42 | HO.PM.IMPN ---
Subjective Subjective Date of Service: 04/03/22 Interval History: Seen and evaluated this morning Pain in right low in improved but still complaining of id Denies any fever or chills No reported other overnight events Review of Systems No fever, chills or weakness No chest pain, palpitation No shortness of breath or coughing No abdominal pain, nausea or vomiting No urinary symptoms No any rash or wounds Low in pain Physical Exam Vital Signs: Vital Signs: Last Vital Signs Temp 97.2 F 04/03/22 07:55 Pulse 67 04/03/22 07:55 Resp 14 04/03/22 07:55 BP 134/57 L 04/03/22 07:55 Pulse Ox 94 04/03/22 07:55 O2 Del Method 04/03/22 07:55 O2 Flow Rate 2 04/02/22 23:33 BMI result Body Mass Index 30.9 Const: Other: Constitutional : Alert, oriented, not in distress Neck : Normal inspection, Supple Cardiovascular : RRR, no JVP, no lower extremity edema Respiratory : fair bilateral air entry, no crackles, wheezes or rhonchi Gastrointestinal: soft, lax, Normal bowel sounds, Non tender Skin : Warm, Dry Renal, mild right CVA tenderness Neurological : Alert & oriented x3, No focal deficit , CN 2-12 within normal Objective Data Active Medications Enoxaparin Sodium (Enoxaparin Sodium 40 Mg/0.4 Ml Syringe) 40 mg SUBCUT Q24H [facility] Last Admin: 04/02/22 14:36 Dose: 40 mg Documented By: ALEXEI Fentanyl (Fentanyl Citrate/Pf 100 Mcg/2 Ml Vial) 25 mcg IVPUSH Q5M PRN; Protocol PRN Reason: Pain, Moderate (Pain Scale 4-6 Fentanyl (Fentanyl Citrate/Pf 100 Mcg/2 Ml Vial) 25 mcg IVPUSH Q5M PRN; Protocol PRN Reason: Pain, Moderate (Pain Scale 4-6 Hydromorphone HCl (Hydromorphone Hcl 0.5 Mg/0.5 Ml Syringe) 0.25 mg IVPUSH Q4H PRN; Protocol PRN Reason: Pain, Severe (Pain Scale 7-10) Ceftriaxone Sodium 1 gm/ (Sodium Chloride) 50 mls @ 100 mls/hr IV Q24H [facility] Insulin Human Lispro (Insulin Lispro 100 Unit/Ml 3 Ml Vial) 0 unit SUBCUT QIDACHS [facility]; Protocol Stop: 04/03/22 14:55 Last Admin: 04/03/22 08:06 Dose: Not Given Documented By: YVONNE Non-Admin Reason: No Insulin Coverage Ondansetron HCl (Ondansetron Hcl 4 Mg/2 Ml Vial) 4 mg IVPUSH Q8H PRN PRN Reason: Nausea and Vomiting Ondansetron HCl (Ondansetron Hcl 4 Mg/2 Ml Vial) 4 mg IVPUSH ONCE PRN PRN Reason: Nausea and Vomiting Ondansetron HCl (Ondansetron Hcl 4 Mg/2 Ml Vial) 4 mg IVPUSH ONCE PRN PRN Reason: Nausea and Vomiting Oxycodone HCl (Oxycodone Hcl Immed Release 5 Mg Tablet) 5 mg PO Q4H PRN PRN Reason: [facility] Pain Pharmacy Consult (Consult Rx Perform Med Rec) 1 each MISCELLANE ONCE PRN PRN Reason: Consult order Sodium Chloride (0.9 % Sodium Chloride Flush 3 Ml Syringe) [facility] Last Admin: 04/03/22 08:08 Dose: 3 ml Documented By: YVONNE Tramadol HCl (Tramadol Hcl 50 Mg Tablet) 50 mg PO Q6H PRN PRN Reason: Pain, Moderate (Pain Scale 4-6 Last Admin: 04/03/22 08:18 Dose: 50 mg Documented By: YVONNE Labs CBC & Chem 7: 04/03/22 05:43 04/03/22 05:43 Labs: Laboratory Results - last 24 hr 04/02/22 04/02/22 04/02/22 10:48 11:31 11:31 MCV MCH MCHC RDW Plt Count MPV Immature Gran % (Auto) Neut % (Auto) Lymph % (Auto) [place] % (Auto) Eos % (Auto) Baso % (Auto) Lymph # (Auto) [place] # (Auto) Eos # (Auto) Baso # (Auto) Abs Immat Gran (auto) Absolute Neuts (auto) Absolute Nucleated RBC Nucleated RBC % (auto) Anion Gap Estim Creat Clear Calc Estimated GFR POC Glucose Random Glucose Lactic Acid F/U @ 2Hr 2.0 Calcium Urine Color YELLOW Urine Appearance CLOUDY Urine pH 6.0 Ur Specific [place] 1.025 Urine Protein NEG Urine Glucose (UA) 250 H Urine Ketones NEG Urine Blood 2+ H Urine Nitrite NEG Ur Leukocyte Esterase 2+ H Urine RBC 5-9 H Urine WBC TNTC H Ur Squamous Epith Cells 1+ Urine Bacteria TRACE COVID-19 ([facility]) Negative COVID-19 Clin Com See Note 04/02/22 04/02/22 04/03/22 17:37 20:16 05:43 MCV 91.6 MCH 29.6 MCHC 32.4 RDW 15.0 Plt Count 196 D MPV 9.4 Immature Gran % (Auto) 0.4 Neut % (Auto) 79.6 H Lymph % (Auto) 12.0 L [place] % (Auto) 6.6 Eos % (Auto) 0.9 Baso % (Auto) 0.5 Lymph # (Auto) 1.8 [place] # (Auto) 1.0 Eos # (Auto) 0.1 Baso # (Auto) 0.1 Abs Immat Gran (auto) 0.06 H Absolute Neuts (auto) 11.8 H Absolute Nucleated RBC 0.000 Nucleated RBC % (auto) 0.0 Anion Gap Estim Creat Clear Calc Estimated GFR POC Glucose 140 H 175 H Random Glucose Lactic Acid F/U @ 2Hr Calcium Urine Color Urine Appearance Urine pH Ur Specific [place] Urine Protein Urine Glucose (UA) Urine Ketones Urine Blood Urine Nitrite Ur Leukocyte Esterase Urine RBC Urine WBC Ur Squamous Epith Cells Urine Bacteria COVID-19 ([facility]) COVID-19 Clin Com 04/03/22 04/03/22 05:43 08:00 MCV MCH MCHC RDW Plt Count MPV Immature Gran % (Auto) Neut % (Auto) Lymph % (Auto) [place] % (Auto) Eos % (Auto) Baso % (Auto) Lymph # (Auto) [place] # (Auto) Eos # (Auto) Baso # (Auto) Abs Immat Gran (auto) Absolute Neuts (auto) Absolute Nucleated RBC Nucleated RBC % (auto) Anion Gap 13 Estim Creat Clear Calc 40.3 Estimated GFR 45 POC Glucose 101 Random Glucose 127 H Lactic Acid F/U @ 2Hr Calcium 7.7 L D Urine Color Urine Appearance Urine pH Ur Specific [place] Urine Protein Urine Glucose (UA) Urine Ketones Urine Blood Urine Nitrite Ur Leukocyte Esterase Urine RBC Urine WBC Ur Squamous Epith Cells Urine Bacteria COVID-19 ([facility]) COVID-19 Clin Com Microbiology Microbiology Results: Microbiology 04/02/22 09:18 Blood Culture - Preliminary Blood - Venous Prelim: GPC Gram Stain only 04/02/22 09:18 Blood Culture - Preliminary Blood - Venous Prelim: GPC Gram Stain only Assessment and Plan (1) UTI (urinary tract infection): Status: Acute (2) Obstruction, uropathy: Status: Acute (3) Hydronephrosis due to obstruction of ureter: Status: Acute Plan 81 y/o female with history significant for insulin dependent type 2 diabetes, htn, hld, osteoporosis, nephrolithiasis s/p lithotripsy, and ckd stage 3 presenting to the ED for right flank pain, vomiting, and chills being admitted for obstructive uropathy and UTI. Hydronephrosis secondary to Obstructive uropathy 1.3 cm obstructing right ureteral stone removed Urology did not place new stent as the ureters dilated To DC vital catheter Discontinue IV fluids Hydromorphone prn for pain UTI/pyelonephritis secondary to obstruction WBC trending down Pending final cultures Continue ceftriaxone Insulin dependent type 2 diabetes SSI Hold PO diabetes medication and home insulin HTN stable To restart meds for now CKD stage 3 stable Monitor BMP daily DVT prophylaxis lovenox Full code Patient requires inpatient stay of overnight hospital stay for pyelonephritis, severe hydronephrosis with obstructive uropathy requiring close monitoring of renal function and IV antibiotic to prevent decompensation to sepsis Quality Stroke Does the patient have a stroke diagnosis?: No VTE Prior VTE?: No VTE Risk Level:: Medical - moderate - high VTE Device Contraindication: Treatment Not Indicated VTE Drug Contraindication: N/A - Med Ordered
[2022-04-03] MEDS: cefTRIAXone sodium 1 GM in 0.9 % Sodium Chloride 50 ML IV (11:12)
[2022-04-03 11:21] VITALS: BP 147/70; PULSE 67; RESP 16; TEMP 36.4; O2SAT 93
[2022-04-03 12:26] LABS: Glucose, Whole Blood 164 mg/dL (60-115)
[2022-04-03] MEDS: Insulin Lispro 100 UNIT/ML 3 ML VIAL SUBCUT (12:34)
[2022-04-03] MEDS: Enoxaparin Sodium 40 MG/0.4 ML SYRINGE SUBCUT (12:35)
[2022-04-03 16:00] VITALS: BP 145/72; BP 157/62; PULSE 59; PULSE 67; RESP 20; TEMP 36.3; TEMP 36.5; O2SAT 96; O2SAT 99
[2022-04-03 16:31] LABS: Glucose, Whole Blood 112 mg/dL (60-115)
[2022-04-03 19:33] VITALS: BP 134/60; PULSE 83; RESP 20; TEMP 36.4; O2SAT 95
[2022-04-03 19:54] LABS: Glucose, Whole Blood 167 mg/dL (60-115)
[2022-04-03 23:48] VITALS: BP 129/61; PULSE 71; RESP 20; TEMP 36; O2SAT 96
[2022-04-04] VITALS (8 sets, daily range): BP systolic 121–142; BP diastolic 55–82; PULSE 62–83; RESP 13–20; TEMP 35.8–36.8; O2SAT 91–99
[2022-04-04] MEDS: 0.9 % Sodium Chloride Flush 3 ML SYRINGE IVFLUSH ×4 (00:27→23:58)
[2022-04-04 05:35] LABS: Hematocrit 30.5 % (37.0-47.0); Hemoglobin 9.9 g/dl (12.0-16.0); Mean Corpuscular HGB Conc 32.5 g/dl (31.0-35.0); Mean Corpuscular Hemoglobin 29.5 pg (27.0-33.0); Mean Corpuscular Volume 90.8 fL (80.0-98.0); Mean Platelet Volume 9.4 fL (9.4-12.3); Platelet Count 193 X10*3/uL (160-400); Red Blood Count 3.36 X10*6/uL (4.20-5.50); Red Cell Distribution Width 14.8 % (11.0-16.0); White Blood Count 9.9 X10*3/uL (4.8-10.8)
[2022-04-04 05:49] LABS: Anion Gap 13 (12-20); Blood Urea Nitrogen 19 mg/dL (9-16); Calcium 8.1 mg/dL (8.4-10.2); Carbon Dioxide 25 mmol/L (22-29); Chloride 105 mmol/L (96-108); Creatinine Clr Calc Pharmacy 52.1; Estimated Glomerular Filt Rate > 60; Glucose Random 116 mg/dL (60-115); Potassium 4.4 mmol/L (3.3-5.1); Sodium 139 mmol/L (135-145)
[2022-04-04 07:22] LABS: Glucose, Whole Blood 103 mg/dL (60-115)
[2022-04-04] MEDS: traMADoL HCL 50 MG TABLET PO (08:58)
[2022-04-04] MEDS: cefTRIAXone sodium 1 GM in 0.9 % Sodium Chloride 50 ML IV (10:29)
[2022-04-04] MEDS: Ibuprofen 400 MG TABLET PO (10:29)
[2022-04-04 11:02] LABS: Glucose, Whole Blood 125 mg/dL (60-115)
[2022-04-04 11:15] LABS: Strep A Nucleic Acid Negative (Negative)
--- NOTE | 2022-04-04 11:19 | P.PNIM_ITS ---
Subjective Subjective Date of Service: 04/04/22 Interval History: Seen and evaluated this morning complaining of throat pain Pain Has improved Denies any fever or chills No reported other overnight events Review of Systems No fever, chills or weakness No chest pain, palpitation No shortness of breath or coughing No abdominal pain, nausea or vomiting No urinary symptoms No any rash or wounds loin pain improving Physical Exam Vital Signs: Vital Signs: Last Vital Signs Temp 98.3 F 04/04/22 07:50 Pulse 83 04/04/22 07:50 Resp 13 04/04/22 07:50 BP 133/60 04/04/22 07:50 Pulse Ox 96 04/04/22 07:50 O2 Del Method 04/04/22 07:50 O2 Flow Rate 2.0 04/04/22 07:50 BMI result Body Mass Index 30.9 Const: Other: Constitutional : Alert, oriented, not in distress throat: exudate of discharge on the back of the throat Neck : Normal inspection, Supple Cardiovascular : RRR, no JVP, no lower extremity edema Respiratory : fair bilateral air entry, no crackles, wheezes or rhonchi Gastrointestinal: soft, lax, Normal bowel sounds, Non tender Skin : Warm, Dry Renal, mild right CVA tenderness Neurological : Alert & oriented x3, No focal deficit , CN 2-12 within normal Objective Data Active Medications Enoxaparin Sodium (Enoxaparin Sodium 40 Mg/0.4 Ml Syringe) 40 mg SUBCUT Q24H [facility] Last Admin: 04/03/22 12:35 Dose: 40 mg Documented By: YVONNE Fentanyl (Fentanyl Citrate/Pf 100 Mcg/2 Ml Vial) 25 mcg IVPUSH Q5M PRN; Protocol PRN Reason: Pain, Moderate (Pain Scale 4-6 Fentanyl (Fentanyl Citrate/Pf 100 Mcg/2 Ml Vial) 25 mcg IVPUSH Q5M PRN; Protocol PRN Reason: Pain, Moderate (Pain Scale 4-6 Hydromorphone HCl (Hydromorphone Hcl 0.5 Mg/0.5 Ml Syringe) 0.25 mg IVPUSH Q4H PRN; Protocol PRN Reason: Pain, Severe (Pain Scale 7-10) Ceftriaxone Sodium 1 gm/ (Sodium Chloride) 50 mls @ 100 mls/hr IV Q24H [facility] Last Infusion: 04/04/22 11:03 Dose: 0 mls/hr Documented By: YVONNE Ondansetron HCl (Ondansetron Hcl 4 Mg/2 Ml Vial) 4 mg IVPUSH Q8H PRN PRN Reason: Nausea and Vomiting Ondansetron HCl (Ondansetron Hcl 4 Mg/2 Ml Vial) 4 mg IVPUSH ONCE PRN PRN Reason: Nausea and Vomiting Ondansetron HCl (Ondansetron Hcl 4 Mg/2 Ml Vial) 4 mg IVPUSH ONCE PRN PRN Reason: Nausea and Vomiting Oxycodone HCl (Oxycodone Hcl Immed Release 5 Mg Tablet) 5 mg PO Q4H PRN PRN Reason: [facility] Consult (Consult Rx Perform Med Rec) 1 each MISCELLANE ONCE PRN PRN Reason: Consult order Sodium Chloride (0.9 % Sodium Chloride Flush 3 Ml Syringe) 3 ml IVFLUSH [facility] Last Admin: 04/04/22 08:58 Dose: 3 ml Documented By: YVONNE Tramadol HCl (Tramadol Hcl 50 Mg Tablet) 50 mg PO Q6H PRN PRN Reason: Pain, Moderate (Pain Scale 4-6 Last Admin: 04/04/22 08:58 Dose: 50 mg Documented By: YVONNE Labs CBC & Chem 7: 04/04/22 05:25 04/04/22 05:25 Labs: Laboratory Results - last 24 hr 04/03/22 04/03/22 04/03/22 11:23 15:18 19:47 MCV MCH MCHC RDW Plt Count MPV Absolute Nucleated RBC Nucleated RBC % (auto) Anion Gap Estim Creat Clear Calc Estimated GFR POC Glucose 164 H 112 167 H Random Glucose Calcium Strep [facility] S. pyogenes GrpA SIMBA 04/04/22 04/04/22 04/04/22 05:25 05:25 07:14 MCV 90.8 MCH 29.5 MCHC 32.5 RDW 14.8 Plt Count 193 MPV 9.4 Absolute Nucleated RBC 0.000 Nucleated RBC % (auto) 0.0 Anion Gap 13 Estim Creat Clear Calc 52.1 Estimated GFR > 60 POC Glucose 103 Random Glucose 116 H Calcium 8.1 L Strep [facility] S. pyogenes GrpA SIMBA 04/04/22 04/04/22 04/04/22 10:20 10:56 Unknown MCV MCH MCHC RDW Plt Count MPV Absolute Nucleated RBC Nucleated RBC % (auto) Anion Gap Estim Creat Clear Calc Estimated GFR POC Glucose 125 H Random Glucose Calcium Strep [facility] Cancelled S. pyogenes GrpA SIMBA Negative Microbiology Microbiology Results: Microbiology 04/02/22 11:31 Urine Culture - Final Urine clean catch - Urine jones top 04/02/22 09:18 Blood Culture - Preliminary Blood - Venous Enterococcus/Streptococcus sp Gram negative abdiel 04/02/22 09:18 Blood Culture - Preliminary Blood - Venous Enterococcus/Streptococcus sp Gram negative abdiel Assessment and Plan (1) UTI (urinary tract infection): Status: Acute (2) Obstruction, uropathy: Status: Acute (3) Hydronephrosis due to obstruction of ureter: Status: Acute (4) Sepsis: Status: Acute (5) Bacteremia: Status: Acute Plan 81 y/o female with history significant for insulin dependent type 2 diabetes, htn, hld, osteoporosis, nephrolithiasis s/p lithotripsy, and ckd stage 3 presenting to the ED for right flank pain, vomiting, and chills being admitted for obstructive uropathy and UTI. Hydronephrosis secondary to Obstructive uropathy 1.3 cm obstructing right ureteral stone removed Urology did not place new stent as the ureters dilated To DC vital catheter Discontinue IV fluids Hydromorphone prn for pain Bacteremia secondary to UTI/pyelonephritis blood cultures growing Streptococcus/Enterococcus and GNR, pending final sensitivity To repeat blood cultures ID evaluation Continue ceftriaxone Throat pain Negative strep a screening Continue antibiotics Use lozenges and ibuprofen for pain management Insulin dependent type 2 diabetes SSI Hold PO diabetes medication and home insulin HTN stable To restart meds for now CKD stage 3 stable Monitor BMP daily DVT prophylaxis lovenox Full code Patient requires inpatient stay of overnight hospital stay for pyelonephritis, severe hydronephrosis with obstructive uropathy requiring close monitoring of renal function and IV antibiotic to prevent decompensation to sepsis Quality Stroke Does the patient have a stroke diagnosis?: No VTE Prior VTE?: No VTE Risk Level:: Medical - moderate - high VTE Device Contraindication: Treatment Not Indicated VTE Drug Contraindication: N/A - Med Ordered
[2022-04-04] MEDS: Enoxaparin Sodium 40 MG/0.4 ML SYRINGE SUBCUT (14:39)
[2022-04-04 16:05] LABS: Glucose, Whole Blood 135 mg/dL (60-115)
[2022-04-04 19:34] LABS: Glucose, Whole Blood 183 mg/dL (60-115)
--- NOTE | 2022-04-04 21:28 | PM.EVENT ---
Event Note Date of Service: 04/04/22 Event Note: I was notified by nurse, that pt has a visitor 2 days in a row that was exposed to COVID. Pt is asymptomatic at this time. there does not appear to be baseline COVId test on admission. Will test her for COVID now. and monitor for symptoms
[2022-04-05 03:25] VITALS: BP 159/72; PULSE 67; RESP 18; TEMP 36.2; O2SAT 95
[2022-04-05 06:14] LABS: Anion Gap 12 (12-20); Blood Urea Nitrogen 19 mg/dL (9-16); Calcium 8.1 mg/dL (8.4-10.2); Carbon Dioxide 25 mmol/L (22-29); Chloride 106 mmol/L (96-108); Creatinine Clr Calc Pharmacy 56.5; Estimated Glomerular Filt Rate > 60; Glucose Random 131 mg/dL (60-115); Potassium 4.3 mmol/L (3.3-5.1); Sodium 139 mmol/L (135-145)
[2022-04-05 07:25] LABS: Glucose, Whole Blood 123 mg/dL (60-115)
[2022-04-05 07:31] VITALS: BP 154/70; PULSE 64; RESP 18; TEMP 36.4; O2SAT 94
[2022-04-05 07:58] VITALS: BP 136/70; PULSE 66; RESP 18; TEMP 36.4; O2SAT 93
--- NOTE | 2022-04-05 09:25 | MHC.CLN ---
NUTRITION CHANGED DIET TO DIABETIC 1800 KCAL DUE TO DX DM AND CKD3.
[2022-04-05 11:18] LABS: Glucose, Whole Blood 118 mg/dL (60-115)
[2022-04-05 11:24] VITALS: BP 159/70; PULSE 71; RESP 19; TEMP 36.7; O2SAT 94
[2022-04-05] MEDS: 0.9 % Sodium Chloride Flush 3 ML SYRINGE IVFLUSH (12:03)
[2022-04-05] MEDS: Amoxicillin 500 MG CAPSULE PO (12:03)
--- NOTE | 2022-04-05 13:45 | P.DS_ITS ---
DS: Providers Provider Date of Service: 04/05/22 Date of admission: 04/02/22 18:17 Primary care physician: Louie Narayanan MD Consults: 04/02/22 11:13 Consult to Urology Stat Consulting Provider: Adalberto Goldstein Reason for consultation: Severe hydronephrosis, Obstructive uropathy Has provider been notified: Yes 04/04/22 09:56 Consult to Infectious Diseases Routine Consulting Provider: Nova Venegas Reason for consultation: Bacteremia for your kind eval DS: Diagnosis Discharge Diagnosis (1) UTI (urinary tract infection): Status: Acute (2) Obstruction, uropathy: Status: Acute (3) Hydronephrosis due to obstruction of ureter: Status: Acute (4) Sepsis: Status: Acute (5) Bacteremia: Status: Acute DS: Summary Hospital Course Hospital Course: Admission note HPI 81 y/o female with history significant for insulin dependent type 2 diabetes, htn, hld, osteoporosis, nephrolithiasis s/p lithotripsy, and ckd stage 3 presenting to the ED for right flank pain, vomiting, and chills. Woke in the middle of the night with 10/10 right flank pain radiating to rihgt groin and proximal RLE. Had vomiting episode x4 at home. Reporting minimal urinary output at home. No fevers, chills, dysuria, hematuria, or urgency.? Had recent admission last month for obstructing ureteral stone and uti/pyelonephritis. Found to have septic shock and admitted to ICU. Had ureteral stent placed by urology with improvement in renal function. and discharged on 2 weeks cefuroxime. Left Stent was removed outpatient? on 03/[address] scan in ED showed severe right renal hydronephrosis and hydroureter due to obstructing stone of right ureter measuring 1.3cm and perinephric fat stranding. In the ED, WBC of 18.7. Renal function slightly decreased from baseline with cr 1.18 and bun 22. Lactic acid of 3.2, with repeat of 2.0 at 2 hours. Electrolytes stable. Urine with 3+leukocytes, culture pending. Has been treated with NS, 1g rocephin, and ondansetron. Given single dose fentanyl for pain. Reports 7/10 right flank pain currently and has vital cath in place.? Mauritanian interpretor assisted with interview. Hospital course The patient was admitted to the hospital for evaluation of right flank pain, vomiting and chills. Found to have an evidence of urinary tract infection with a CT scan concerning for hydronephrosis secondary to obstructive uropathy with 1.3 obstructing right ureteral stone. Patient was seen by urologist who did cystoscopy with basketing and removed the stone but did not leave a new stent as the ureter was dilated already. The patient was treated with IV antibiotic of ceftriaxone but her blood cultures grew E coli and Enterococcus faecalis both sensitive to ampicillin. The patient was started on amoxicillin after discussing with infectious disease specialist who recommended total treatment of 2 weeks. The patient reported sore throat. Noted to have a white spots on the back of her throat. Streptococcal screening was negative. Improved with pain medication of ibuprofen. Continue amoxicillin for 12 more days To follow-up with urology as outpatient Time Spent with Patient Time attestation: Total time spent providing and/or coordinating discharge services: Discharge coordination time: Greater than 30 minutes Quality: Safe Use of Opioids Does Pt have an Active Cancer Diagnosis on the Problem List?: No Quality: Stroke Does the patient have a stroke diagnosis?: No Physical Exam Vital Signs: Vital Signs: Last Vital Signs Temp 98.0 F 04/05/22 11:24 Pulse 71 04/05/22 11:24 Resp 19 04/05/22 11:24 BP 159/70 H 04/05/22 11:24 Pulse Ox 94 04/05/22 11:24 O2 Del Method 04/05/22 11:24 O2 Flow Rate 2.0 04/04/22 07:50 BMI result Body Mass Index 30.9 Const: Other: Constitutional : Alert, oriented, not in distress throat: Less erythema and exudate on the back of the throat Neck : Normal inspection, Supple Cardiovascular : RRR, no JVP, no lower extremity edema Respiratory : fair bilateral air entry, no crackles, wheezes or rhonchi Gastrointestinal: soft, lax, Normal bowel sounds, Non tender Skin : Warm, Dry Renal, no more right CVA tenderness Neurological : Alert & oriented x3, No focal deficit , CN 2-12 within normal DS: Data Data Completed and Pending Completed studies during hospitalization [Text1]: Procedures Dilation of Right Ureter with Intraluminal Device, Via Natural or Artificial Opening Endoscopic (02/26/22) Insertion of Infusion Device into Right Atrium, Percutaneous Approach (02/26/22) Introduction of Vasopressor into Peripheral Vein, Percutaneous Approach (02/26/22) Ultrasonography of Superior Vena Cava, Guidance (02/26/22) Labs on day of discharge: Laboratory Results - last 24 hr 04/04/22 04/04/22 04/05/22 16:00 19:30 05:21 Sodium 139 Potassium 4.3 Chloride 106 Carbon Dioxide 25 Anion Gap 12 BUN 19 H Creatinine 0.82 Estim Creat Clear Calc 56.5 Estimated GFR > 60 POC Glucose 135 H 183 H Random Glucose 131 H Calcium 8.1 L 04/05/22 04/05/22 07:16 11:14 Sodium Potassium Chloride Carbon Dioxide Anion Gap BUN Creatinine Estim Creat Clear Calc Estimated GFR POC Glucose 123 H 118 H Random Glucose Calcium Preliminary micro results at discharge 04/04/22 10:31 Blood Culture - Preliminary Blood - Venous No growth after 24 hours. 04/04/22 10:31 Blood Culture - Preliminary Blood - Venous No growth after [address] scan - abdomen: Radiologist's impression: ITS Impressions Abdomen/Pelvis CT 04/02/22 10:06 IMPRESSION: *Severe right renal hydronephrosis and hydroureter, due to obstructing stone found in the mid course of the right ureter measure up to 1.3 cm. Right kidney is swollen, there is marked perinephric fat stranding suggesting high degree of obstruction. *Tiny 3 mm nonobstructing stone lower calyx left kidney. *Partial subsegmental atelectasis at left lung bases, lingula base and left lower lobe. *Other noncritical findings are Diverticulosis coli without evidence of acute diverticulitis, surgical clip from prior cholecystectomy, atrophic pancreas. Guidance Fluoroscopy 04/02/22 19:03 IMPRESSION: Fluoroscopy performed for the urology department. Please see the operative report for additional information. Discharge Plan Discharge Patient Disposition: Home, Self-Care Discharge Diagnosis: Bacteremia secondary to E coli and Enterococcus Obstructive uropathy Urinary tract infection, sepsis Referrals: Louie Narayanan MD [Primary Care Provider] - 1 Week Discharge Medications: No Action calcium carbonate [Calcium 600] 600 mg calcium (1,500 mg) tablet 600 mg PO BID 90 Days Qty: 180 3RF loratadine 10 mg tablet 1 tab PO DAILY PRN (Reason: Allergic Symptoms) cholecalciferol (vitamin D3) [Vitamin D3] 25 mcg (1,000 unit) capsule 25 mcg PO DAILY polyethylene glycol 3350 17 gram Powder In Packet 17 g PO DAILY Qty: 30 0RF aspirin [Adult Low Dose Aspirin] 81 mg tablet,delayed release (DR/EC) 81 mg PO BEDTIME glipizide 10 mg tablet 10 mg PO DAILY hydralazine 25 mg tablet 25 mg PO BID metformin 1,000 mg tablet 1,000 mg PO BID Lantus Solostar U-100 Insulin 100 unit/mL (3 mL) insulin pen 14 unit subcut BEDTIME furosemide 40 mg tablet 40 mg PO DAILY atorvastatin 80 mg tablet 80 mg PO BEDTIME Trulicity 0.75 mg/0.5 mL pen injector 0.75 mg subcut QWEEK Rx Instructions: PT TAKES EVERY TUESDAY valsartan 160 mg tablet 160 mg PO DAILY (DME) lancets [TRUEplus Lancets] 33 gauge misc See Rx Instructions topical TID Qty: 100 Rx Instructions: As directed (DME) OneTouch Ultra Test Strip See Rx Instructions .ROUTE TID Qty: 10 Rx Instructions: As directed (DME) pen needle, diabetic [UltiCare Pen Needle] 31 gauge x 5/16 needle See Rx Instructions subcut DAILY Qty: 1200 Rx Instructions: As directed sennosides [senna] 8.6 mg tablet 8.6 mg PO BID Diet: Advance to usual diet Activity on Discharge: As tolerated Stand Alone Forms: Patient Portal Discharge page Care Plan Goals: Read below Health Concerns: Read below Plan of Treatment: Read below Assessment: You were admitted to the hospital for treatment of sepsis secondary to urinary tract infection. Found to have obstruction your ureter as urologist when 10 and removed obstructing stone. Your responded well to treatment with IV antibiotics as you were evaluated by infectious disease specialist as your blood cultures grow to bacteria as called E.coli and Enterococcus faecalis responsive to amoxicillin. Continue amoxicillin for 12 more days To follow-up with urology as outpatient
--- NOTE | 2022-04-05 14:44 | P.CNID_ITS ---
History of Present Illness Data of Consult Service Date: 04/05/22 Requesting physician: Joaquina Conrad Primary Care Provider: Louie Narayanan MD HPI Reason for consult: bacteremia,hydronephrosis She presents with right flank pain for three days,01/29. She has no fever or chills at this time. She has enterococcus and E coli Review of Systems Review of Systems: Yes all other systems are reviewed and are negative PMFSH Past Medical History Medical History Calculus of kidney Diabetes mellitus Gram-negative bacteremia Hydronephrosis of right kidney Hypertension Osteoporosis Septic shock UTI (urinary tract infection) Functional capacity: independent ambulation Family History Family History Father Heart problem Mother No problems noted. Family history: reviewed and not pertinent Surgical History Surgical History Hx of hysterectomy Hx of lithotripsy Social History Social History Household Members: None Housing: Apartment Do you presently have visiting nurse or other home services: No Alcohol intake: never Patient Tobacco Use Status: Never used Tobacco e-Cigarette/Vaping Use: Never Used Use of substances other than those prescribed or required for medical reasons: No Currently Displaying Signs/Symptoms of Drug Intoxication Withdrawal: No Have you been hit, kicked, punched, or otherwise hurt by someone within the past year? If so, by whom?: No Do you feel safe in your current relationship?: Yes Is there a partner from a previous relationship who is making you feel unsafe now?: No Are you made to feel afraid or neglected: No Roman [employer] Healthcare Practices: religious Advance Directives: No Advance Directives Information Provided: Yes Do you have thoughts of harming others: None Do you have a plan to hurt others: No Plan Recently lost weight without trying: No Nutrition Risks: No Nutritional Risk Patient : No : No Poor oral hygiene: No service: No Current occupational status: disabled Meds Allergies Allergy/AdvReac Type Severity Reaction Status Date / Time Sulfa (Sulfonamide Allergy Mild RASH/ITCH Verified 03/26/22 09:45 Antibiotics) penicillin V Allergy Unknown Unknown Verified 03/26/22 09:45 sulfamethoxazole Allergy Unknown HIVES Verified 03/26/22 09:45 [From BACTRIM] trimethoprim [From BACTRIM] Allergy Unknown HIVES Verified 03/26/22 09:45 oxycodone [From Percocet] Allergy Unknown Verified 03/26/22 09:45 Active Medications: Current Medications Amoxicillin (Amoxicillin 500 Mg Capsule) 500 mg PO Q8H [facility] Last Admin: 04/05/22 12:03 Dose: 500 mg Diphenhydramine HCl (Diphenhydramine Hcl 50 Mg/Ml Vial) 25 mg IVPUSH Q6H PRN PRN Reason: Allergic Reaction Enoxaparin Sodium (Enoxaparin Sodium 40 Mg/0.4 Ml Syringe) 40 mg SUBCUT Q24H [facility] Last Admin: 04/05/22 14:19 Dose: Not Given Fentanyl (Fentanyl Citrate/Pf 100 Mcg/2 Ml Vial) 25 mcg IVPUSH Q5M PRN; Protocol PRN Reason: Pain, Moderate (Pain Scale 4-6 Fentanyl (Fentanyl Citrate/Pf 100 Mcg/2 Ml Vial) 25 mcg IVPUSH Q5M PRN; Protocol PRN Reason: Pain, Moderate (Pain Scale 4-6 Hydromorphone HCl (Hydromorphone Hcl 0.5 Mg/0.5 Ml Syringe) 0.25 mg IVPUSH Q4H PRN; Protocol PRN Reason: Pain, Severe (Pain Scale 7-10) Ondansetron HCl (Ondansetron Hcl 4 Mg/2 Ml Vial) 4 mg IVPUSH Q8H PRN PRN Reason: Nausea and Vomiting Ondansetron HCl (Ondansetron Hcl 4 Mg/2 Ml Vial) 4 mg IVPUSH ONCE PRN PRN Reason: Nausea and Vomiting Ondansetron HCl (Ondansetron Hcl 4 Mg/2 Ml Vial) 4 mg IVPUSH ONCE PRN PRN Reason: Nausea and Vomiting Oxycodone HCl (Oxycodone Hcl Immed Release 5 Mg Tablet) 5 mg PO Q4H PRN PRN Reason: [facility] Consult (Consult Rx Perform Med Rec) 1 each MISCELLANE ONCE PRN PRN Reason: Consult order Sodium Chloride (0.9 % Sodium Chloride Flush 3 Ml Syringe) 3 ml IVFLUSH QSHIFT [facility] Last Admin: 04/05/22 12:03 Dose: 3 ml Tramadol HCl (Tramadol Hcl 50 Mg Tablet) 50 mg PO Q6H PRN PRN Reason: Pain, Moderate (Pain Scale 4-6 Last Admin: 04/04/22 08:58 Dose: 50 mg Home Medications Medication Instructions Recorded Confirmed Last Taken Type aspirin 81 mg tablet,delayed 81 mg PO BEDTIME 12/26/20 04/02/22 04/01/22 History release (Adult Low Dose Aspirin) glipizide 10 mg tablet 10 mg PO DAILY 12/26/20 04/02/22 04/01/22 History hydralazine 25 mg tablet 25 mg PO BID 12/26/20 04/02/22 04/01/22 History insulin glargine 100 unit/mL (3 14 unit subcut BEDTIME 12/26/20 04/02/22 04/01/22 History mL) subcutaneous pen (Lantus Solostar U-100 Insulin) metformin 1,000 mg tablet 1,000 mg PO BID 12/26/20 04/02/22 04/01/22 History atorvastatin 80 mg tablet 80 mg PO BEDTIME 12/23/21 04/02/22 04/01/22 History blood sugar diagnostic (OneTouch #10 ea 12/23/21 04/02/22 Unknown History Ultra Test strips) dulaglutide 0.75 mg/0.5 mL 0.75 mg subcut QWEEK 12/23/21 04/02/22 03/30/22 History subcutaneous pen injector (Trulicity) furosemide 40 mg tablet 40 mg PO DAILY 12/23/21 04/02/22 04/01/22 History lancets 33 gauge (TRUEplus Lancets) #100 ea 12/23/21 04/02/22 Unknown History pen needle, diabetic 31 gauge x #1,200 ea 12/23/21 04/02/22 Unknown History 01/04 (UltiCare Pen Needle) valsartan 160 mg tablet 160 mg PO DAILY 12/23/21 04/02/22 04/01/22 History sennosides 8.6 mg tablet (senna) 8.6 mg PO BID 03/17/22 04/02/22 Unknown History cholecalciferol (vitamin D3) 25 25 mcg PO DAILY 04/02/22 04/02/22 04/01/22 History mcg (1,000 unit) capsule (Vitamin D3) loratadine 10 mg tablet 1 tab PO DAILY PRN Allergic 04/02/22 04/02/22 Unknown History Symptoms Physical Exam Vital Signs: Vital Signs: Last Vital Signs Temp 98.0 F 04/05/22 11:24 Pulse 71 04/05/22 11:24 Resp 19 04/05/22 11:24 BP 159/70 H 04/05/22 11:24 Pulse Ox 94 04/05/22 11:24 O2 Del Method 04/05/22 11:24 O2 Flow Rate 2.0 04/04/22 07:50 BMI result Body Mass Index 30.9 Const: General: cooperative HEENT: Head: Yes normal to inspection Face and sinus: Yes normal facial exam Mouth: Normal oral and palatal mucosa present Teeth and gingiva: dentition normal Eyes: General: appearance normal, both eyes and all related structures Pupils: Equal, round and reactive pupils present Resp: Effort & Inspection: normal respiratory effort Cardio: Rate: regular rate Rhythm: regular rhythm GI: Palpation (GI): Soft to palpation and nontender : Other: left flank pain General: Yes no CVA tenderness Back/Spine/Pelvis: Back: no CVA tenderness Skin: General skin exam: no rashes or lesions noted Neuro: General: moves all extremities Cranial nerves: Yes Equal, round and reactive pupils present Extrem: General: Yes normal to inspection Psych: Appearance: grossly normal Results Labs CBC & Chem 7: 04/04/22 05:25 04/05/22 05:21 Labs: BMP 04/05/22 05:21 Sodium 139 Potassium 4.3 Chloride 106 Carbon Dioxide 25 BUN 19 H Creatinine 0.82 Calcium 8.1 L Microbiology Microbiology Results: Microbiology 04/04/22 10:31 Blood - Venous Blood Culture - Preliminary No growth after 24 hours. 04/04/22 10:31 Blood - Venous Blood Culture - Preliminary No growth after 24 hours. 04/02/22 09:18 Blood - Venous Blood Culture - Final Enterococcus faecalis Escherichia coli 04/02/22 09:18 Blood - Venous Blood Culture - Final Enterococcus faecalis Escherichia coli 04/02/22 11:31 Urine clean catch - Urine jones top Urine Culture - Final Assessment and Plan (1) Bacteremia: Status: Acute She has allergy to PCN She may tolerate Amoxicillin (2) UTI (urinary tract infection): Status: Acute (3) Obstruction, uropathy: Status: Acute (4) Hydronephrosis due to obstruction of ureter: Status: Acute Plan Continue treatment hydronephrosis through Urology. Amoxicillin 500 mg tid for 14 day if tolerated. If not tolerated, linezolid and Amoxicillin.
--- NOTE | 2022-04-05 15:28 | MHC.CM.PN ---
PT MEDICALLY CLEARED FOR D/C HOME SELF-CARE, PT ARRANGING TRANSPORT
== END 2022-04-05 15:25 | disposition home or self-care (01) | DRG 690 ==
LOC: HO.ED 11:13 → HO.EDOVER 13:33 → HO.SSS 17:41 → HO.EDOVER 18:19 → HO.S3 18:22
PROVIDERS: Physician Assistant; Admitting Provider Urology; Emergency Provider Student in an Organized Health Care Education/Training Program; PCP Internal Medicine; Visit Provider Student in an Organized Health Care Education/Training Program
PROC: 0TF68ZZ Fragmentation in Right Ureter, Via Natural or Artificial Opening Endoscopic (ICD-10-PCS; principal; 2022-04-02 17:20)
DX: N13.6 Pyonephrosis (principal); I12.9 Hypertensive chronic kidney disease with stage 1 through stage 4 chronic kidney disease, or unspecified chronic kidney disease; E11.22 Type 2 diabetes mellitus with diabetic chronic kidney disease; N18.30 Chronic kidney disease, stage 3 unspecified; Z88.0 Allergy status to penicillin; J02.9 Acute pharyngitis, unspecified; Z20.822 Contact with and (suspected) exposure to COVID-19; Z88.2 Allergy status to sulfonamides; Z88.5 Allergy status to narcotic agent; Z79.4 Long term (current) use of insulin; Z79.82 Long term (current) use of aspirin; Z79.84 Long term (current) use of oral hypoglycemic drugs; Z79.899 Other long term (current) drug therapy
CPT/HCPCS: 36415; 74176; 80048; 80053; 81001; 82947; 83605; 85025; 85027; 87040; 87077; 87086; 87186; 87205; 87635; 87651; 93005; 96361; 96374; 96375; 99285; C1758; C1769; J0131; J0696; J1650; J1885; J1940; J1956; J2405; J3010; Q9967

== ENCOUNTER → 2022-07-01 09:03 | Outpatient (BNVA) | payer OTHER, SELFPAY | PROVIDERS: PCP Internal Medicine; Visit Provider Internal Medicine Endocrinology, Diabetes & Metabolism | DX: M81.0 Age-related osteoporosis without current pathological fracture (principal) | CPT/HCPCS: 99212 ==

== ENCOUNTER 2022-07-07 10:27 | Outpatient (REF) | payer OTHER, SELFPAY ==
[2022-07-07 12:29] LABS: Albumin Level 3.7 g/dL (3.5-5.0); Calcium 8.8 mg/dL (8.4-10.2); Vitamin D 25-OH Total 27.4 ng/mL (>30)
== END 2022-07-07 10:28 | disposition home or self-care (01) ==
LOC: HO.LAB 10:27
PROVIDERS: Internal Medicine Endocrinology, Diabetes & Metabolism; PCP Internal Medicine; Visit Provider Internal Medicine Endocrinology, Diabetes & Metabolism
DX: M81.0 Age-related osteoporosis without current pathological fracture (principal)
CPT/HCPCS: 36415; 82040; 82306; 82310

== ENCOUNTER 2022-07-13 12:26 | Outpatient (REF) | payer OTHER, SELFPAY ==
[2022-07-18 13:51] LABS: N-Telopeptide 20 (see note); NTXCreaRU 65 mg/dL (20-275)
== END 2022-07-13 12:27 | disposition home or self-care (01) ==
LOC: HO.LNP 12:26
PROVIDERS: Visit Provider Internal Medicine Endocrinology, Diabetes & Metabolism
DX: M81.0 Age-related osteoporosis without current pathological fracture (principal)
CPT/HCPCS: 82523

== ENCOUNTER 2022-09-02 08:26 | Outpatient (REF) | payer OTHER, SELFPAY ==
--- NOTE | ~2022-09-02 | MM_ITS ---
EXAMINATION: MM SCREENING DIGITAL BREAST TOMOSYNTHESIS, BILATERAL CLINICAL INFORMATION: Screening. Asymptomatic. The lifetime risk of breast cancer based on the Tyrer-Cuzick Model is 0.6%. COMPARISON: Mammography: August 31, 2021 and studies dating back to November 11, 2015 TECHNIQUE: Digital breast tomosynthesis is performed in both the craniocaudal and mediolateral oblique views along with computer-aided detection (CAD). Synthesized 2D images are generated from the tomosynthesis. FINDINGS: There are scattered areas of fibroglandular density (ACR BI-RADS breast composition Category b). There are no significant masses, abnormal calcifications, or other abnormalities. MM/MM tomosynthesis screening BI IMPRESSION: No significant changes from prior exam. ASSESSMENT: BI-RADS 1: Negative RECOMMENDATION: Routine annual mammography screening. This patient's information was entered into a reminder system with a target due date for their next mammogram.
== END 2022-09-02 08:27 | disposition home or self-care (01) ==
LOC: HO.MAMMO 08:26
PROVIDERS: PCP Internal Medicine; Visit Provider Internal Medicine
DX: Z12.31 Encounter for screening mammogram for malignant neoplasm of breast (principal)
CPT/HCPCS: 77063; 77067

== ENCOUNTER 2022-09-13 08:28 | Outpatient (REF) | payer OTHER, SELFPAY ==
[2022-09-13 12:54] LABS: Estimated Average Glucose 194 mg/dL; Hemoglobin A1c % 8.4 %
== END 2022-09-13 08:29 | disposition home or self-care (01) ==
LOC: HO.LAB 08:28
PROVIDERS: PCP Internal Medicine; Referring Provider Emergency Medicine; Visit Provider Surgery
DX: R22.9 Localized swelling, mass and lump, unspecified (principal); E11.9 Type 2 diabetes mellitus without complications; I10 Essential (primary) hypertension; Z79.4 Long term (current) use of insulin; Z79.899 Other long term (current) drug therapy
CPT/HCPCS: 36415; 83036; 99202

== ENCOUNTER → 2022-09-24 08:47 | Outpatient (BNVA) | payer OTHER, SELFPAY | PROVIDERS: PCP Internal Medicine; Visit Provider Surgery | DX: L85.8 Other specified epidermal thickening (principal); E11.9 Type 2 diabetes mellitus without complications; I10 Essential (primary) hypertension | CPT/HCPCS: 99212 ==

== ENCOUNTER → 2022-10-12 09:54 | Outpatient (BNVA) | payer OTHER, SELFPAY | PROVIDERS: PCP Internal Medicine; Referring Provider Internal Medicine; Visit Provider Surgery | DX: L85.8 Other specified epidermal thickening (principal); E11.9 Type 2 diabetes mellitus without complications; I10 Essential (primary) hypertension | CPT/HCPCS: 99212 ==

== ENCOUNTER 2022-12-30 08:25 | Outpatient (REF) | payer OTHER, SELFPAY | END 2022-12-30 08:26 | disposition home or self-care (01) | LOC: HO.LAB 08:25 | PROVIDERS: Visit Provider Internal Medicine Endocrinology, Diabetes & Metabolism | DX: M81.0 Age-related osteoporosis without current pathological fracture (principal) | CPT/HCPCS: 36415; 82306 ==

== ENCOUNTER → 2023-01-04 08:32 | Outpatient (BNVA) | payer OTHER, SELFPAY | PROVIDERS: PCP Internal Medicine; Visit Provider Internal Medicine Endocrinology, Diabetes & Metabolism | DX: M81.0 Age-related osteoporosis without current pathological fracture (principal) | CPT/HCPCS: 99212 ==

== ENCOUNTER 2023-01-07 10:27 | Outpatient (REF) | payer OTHER, SELFPAY ==
[2023-01-13 20:49] LABS: N-Telopeptide 44 (see note); NTXCreaRU 158 mg/dL (20-275)
== END 2023-01-07 10:28 | disposition home or self-care (01) ==
LOC: HO.LNP 10:27
PROVIDERS: Visit Provider Internal Medicine Endocrinology, Diabetes & Metabolism
DX: M81.0 Age-related osteoporosis without current pathological fracture (principal)
CPT/HCPCS: 82523

== ENCOUNTER 2023-02-11 09:02 | Outpatient (REF) | payer OTHER, SELFPAY ==
--- NOTE | ~2023-02-11 | XR_ITS ---
EXAMINATION: XR CERVICAL SPINE CLINICAL INFORMATION: Neck pain x1 week. No history of trauma. COMPARISON: None available. TECHNIQUE: 4 views of the cervical spine were obtained. FINDINGS: The cervical spine is imaged through the C7 vertebral body. There is minimal anterolisthesis of C3 on C4. There is minimal retrolisthesis of C5 on C6. Vertebral body heights are maintained. Moderate intervertebral disc space narrowing at C5-C6. Multilevel ventral marginal osteophytes. Lateral masses are symmetric. Prevertebral soft tissues are within normal limits. 8 mm well-corticated calcification in the nuchal ligament. XR/XR cervical spine 3V IMPRESSION: Moderate degenerative disc disease at C5-C6.
== END 2023-02-11 09:03 | disposition home or self-care (01) ==
LOC: HO.HHCX 09:02
PROVIDERS: Visit Provider Emergency Medicine
DX: M54.2 Cervicalgia (principal)
CPT/HCPCS: 72040

== ENCOUNTER 2023-03-30 08:33 | Outpatient (AMB) | payer OTHER, SELFPAY ==
--- NOTE | 2023-03-30 09:18 | A.OFFVIS_ITS ---
Intake Vital Signs 03/30/23 09:32 Height 5 ft 3.78 in Weight 163 lb BMI 28.2 Intake Visit Reasons: [employer]- Trigger middle finger right hand Intake Note: Yusra 82 yr old female who is right hand dominant presents today as a new patient for an evaluation for her right hand middle finger locking. States it started 1 yr ago and has worsen since. States her finger swells and is not able to make a full close fist due to scare of it locking. States its painful to pop finger back up after. No prior treatment. Also is concern about her palm. She has small lumps in volar aspect of palm. Patient would like to discuss injection. Allergies Sulfa (Sulfonamide Antibiotics) Allergy (Intermediate, Verified 03/30/23 09:31) RASH/ITCH sulfamethoxazole [From BACTRIM] Allergy (Intermediate, Verified 03/30/23:) HIVES trimethoprim [From BACTRIM] Allergy (Intermediate, Verified 03/30/23 09:) HIVES oxycodone [From Percocet] Allergy (Unknown, Verified 03/30/23 09:) Unknown penicillin V Allergy (Unknown, Verified 03/30/23 09:) Unknown HPI [employer]- Trigger middle finger right hand HPI Details Yusra is an 82 year old right hand dominant Tuvaluan speaking woman who presents with complaints of painful locking in her right middle finger. She says this has been present for ~1 year, and she is afraid to make a full closed fist due to the painful locking. She also complains of numbness in the median nerve distribution of her right hand. Symptoms intermittent, but daily, worse at night. [facility] Medical History Calculus of kidney Diabetes mellitus Gram-negative bacteremia Hydronephrosis of right kidney Hypertension Osteoporosis Septic shock UTI (urinary tract infection) Surgical History H/O colonoscopy History of surgery Hx of cystoscopy Hx of hemorrhoidectomy Hx of hysterectomy Hx of lithotripsy Family History Father Heart problem Mother No problems noted. 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 Review of Systems Const All systems reviewed & are unremarkable except as noted in HPI and below Physical Exam Vital Signs: BMI result Body Mass Index 28.2 Const General: cooperative, healthy appearing and no acute distress Orientation/consciousness: patient oriented x3 HEENT Head: Yes normocephalic and Yes atraumatic Eyes EOM: EOMs intact bilaterally Resp Effort & Inspection: normal respiratory effort and able to speak in complete sentences Cardio Jugular venous distension: no JVD Skin General skin exam: turgor normal Rashes: no rashes Neuro General: patient oriented x3 Extrem Other: Evaluation of Right Upper Extremity: The patient is alert, oriented, and in no acute distress Neuro: Median, Ulnar, Radial nerves motor and sensory intact and sensation is normal to the tips of all digits Vascular: Cap refill brisk ROM: Some stiffness in her finger as she is avoiding bringing it down into fiull flexion Visible and palpable locking and catching of the middle finger Tender over the a1 venkat of the middle finger She has a Dupuytrens nodule in the mid-castano area in line with the ring finger Skin: No lacerations or abrasions. General: No Ecchymosis. No Erythema or evidence of infection. Psych Appearance: grossly normal Affect: normal affect Attitude: cooperative Office Procedures Fracture Care Details: No fracture, injection 12068 Fracture Billing Code: Fracture Billing Code Results Reviewed Results Reviewed: 03/30/23 10:34 Lidocaine HCl 1 % [Xylocaine 1 %] 2 ml .ROUTE .STK-MED ONE dexAMETHasone sod phosphate [Decadron] 4 mg .ROUTE .STK-MED ONE Assessment & Plan Assessment & Plan (1) Trigger finger, right middle finger: Code(s): M65.331 - Trigger finger, right middle finger (2) Numbness of right hand: Code(s): R20.0 - Anesthesia of skin (3) Numbness of left hand: Code(s): R20.0 - Anesthesia of skin (4) 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 Right middle finger trigger finger I educated her about this condition I discussed operative and non-operative treatment options The patient would like to proceed with a injection She has been avoiding bringing her middle finger into full flexion and has developed some stiffness She will work on ROM exercises at home Injection #1: The risks and benefits of a steroid injection including but not limited to risk of damage to blood vessels, nerves, tendons, infection, skin bleaching, failure to improve symptoms, increased pain, and possible need for further injections or other intervention were discussed with the patient and the patient wishes to proceed with the steroid injection. Once consent was obtained, I sterilely prepped the area over the A1 venkat of the flexor tendon sheath of the right middle. I then injected the flexor tendon sheath with a combination of 1 mL of dexamethasone (4mg/ml), and 1% lidocaine. The patient tolerated the procedure well with no complications. If the patient continues to have locking and catching 4-6 weeks following this injection, they may call to schedule appointment to discuss alternative treatment options 2. Bilateral hand numbness In the median nerve distribution Symptoms intermittent, but daily, worse at night I ordered a NCS to assess for peripheral neuropathy vs cervical radiculopathy She will follow up when completed for review 3. Left Dupuytrens nodule In the mid-castano area in line with the ring finger Scribed for Shu Galarza MD by Andrews Farah, medical registrar, on 03/30/23 at 10:30 AM, EST. 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
[2023-03-30 09:32] VITALS: BMI 28.2
== END 2023-03-30 10:45 | disposition home or self-care (01) ==
PROVIDERS: PCP Internal Medicine; Visit Provider Orthopaedic Surgery
DX: M65.331 Trigger finger, right middle finger (principal); R20.0 Anesthesia of skin; M72.0 Palmar fascial fibromatosis [Dupuytren]
CPT/HCPCS: 20550; 99213

== ENCOUNTER → 2023-03-30 08:33 | Outpatient (BNVA) | payer OTHER, SELFPAY | PROVIDERS: PCP Internal Medicine; Visit Provider Orthopaedic Surgery | DX: M65.331 Trigger finger, right middle finger (principal); M72.0 Palmar fascial fibromatosis [Dupuytren]; R20.0 Anesthesia of skin | CPT/HCPCS: 99212; J1100 ==

== ENCOUNTER 2023-04-08 08:20 | Outpatient (REF) | payer OTHER, SELFPAY ==
[2023-04-08 11:46] LABS: Anion Gap 14 (12-20); Blood Urea Nitrogen 19 mg/dL (9-16); Calcium 9.7 mg/dL (8.4-10.2); Carbon Dioxide 23 mmol/L (22-29); Chloride 106 mmol/L (96-108); Estimated Glomerular Filt Rate 56; Glucose Random 131 mg/dL (60-115); Potassium 4.2 mmol/L (3.3-5.1); Sodium 139 mmol/L (135-145)
[2023-04-09 11:48] LABS: BV Int Neg Control Negative (Negative); BV Int Pos Control Positive (Positive)
== END 2023-04-08 08:21 | disposition home or self-care (01) ==
LOC: HO.HHCL 08:20
PROVIDERS: Internal Medicine Geriatric Medicine; Visit Provider Internal Medicine Cardiovascular Disease
DX: N89.8 Other specified noninflammatory disorders of vagina (principal); I10 Essential (primary) hypertension
CPT/HCPCS: 36415; 80048; 87480; 87510; 87660

== ENCOUNTER 2023-04-28 11:55 | Outpatient (REF) | payer OTHER, SELFPAY ==
--- NOTE | 2023-04-28 11:58 | EMG_ITS ---
Chief complaint: Bilateral hand numbness Patient is Mauritanian-speaking, seen with automotive parts interpreter. Reason for referral: Evaluate for Carpal Tunnel Syndrome Referred by: Dr. Galarza Procedure done: Bilateral upper extremities NCS/EMG Precautions and/or limitations: None The limb temperature was monitored continuously and remained between 32-36 degrees C during the performance of the NCS. Nerve Conduction Studies Anti Sensory Summary Table ?Stim Site NR Onset (ms) Norm Onset (ms) Peak (ms) Norm Peak (ms) O-P Amp (?V) Norm O-P Amp Site1 Site2 Delta-0 (ms) Dist (cm) Vijay (m/s) Norm Vijay (m/s) Left Median Anti Sensory (2nd Digit) Wrist ? 3.8 5.2 <3.6 25.7 >10 Wrist 2nd Digit 3.8 14.0 37 Right Median Anti Sensory (2nd Digit) Wrist NR <3.6 >10 Wrist 2nd Digit 14.0 Right Radial Anti Sensory (Thumb) Forearm ? 3.1 3.2 <3.1 18.4 Forearm Thumb 3.1 0.0 Left Ulnar Anti Sensory (5th Digit) Wrist ? 2.9 3.7 <3.7 15.9 >15.0 Wrist 5th Digit 2.9 14.0 48 Right Ulnar Anti Sensory (5th Digit) Wrist ? 3.3 3.7 <3.7 20.2 >15.0 Wrist 5th Digit 3.3 14.0 42 Motor Summary Table ?Stim Site NR Onset (ms) Norm Onset (ms) O-P Amp (mV) Norm O-P Amp iAmp (mV) Amp (1st) (%) Site1 Site2 Delta-0 (ms) Dist (cm) Vijay (m/s) Norm Vijay (m/s) Left Median Motor (Abd Poll Brev) Wrist ? 5.5 <3.9 6.5 >4.5 8.3 100.0 Elbow Wrist 3.6 18.0 50 >45 Elbow ? 9.1 6.9 8.8 106.2 Right Median Motor (Abd Poll Brev) Wrist ? 6.2 <3.9 4.2 >4.5 5.0 100.0 Elbow Wrist 4.4 19.0 43 >45 Elbow ? 10.6 3.9 4.4 92.9 Left Ulnar Motor (Abd Dig Minimi) Wrist ? 8.2 <3.0 5.9 >5 7.0 100.0 B Elbow Wrist ??? 3.3 ? 2.2 15.0 10.0 45 45 >45 B Elbow A Elbow ? 7.0 6.5 6.9 6.0 8.1 116.9 Right Ulnar Motor (Abd Dig Minimi) Wrist ? 3.0 <3.0 10.3 >5 12.2 100.0 B Elbow Wrist 3.3 15.0 45 >45 B Elbow ? 6.3 8.3 10.1 80.6 A Elbow B Elbow 2.2 10.0 45 >45 A Elbow ? 8.5 9.5 11.5 92.2 EMG ?Side Muscle Nerve Root Ins Act Fibs Psw Amp Dur Poly Recrt Int Pat Comment Right 1stDorInt Ulnar C8-T1 Nml Nml Nml Nml Nml 0 Nml Complete Right FlexCarRad Median C6-7 Nml Nml Nml Nml Nml 0 Nml Complete Right Biceps Musculocut C5-6 Nml Nml Nml Nml Nml 0 Nml Complete Right Triceps Radial C6-7-8 Nml Nml Nml Nml Nml 0 Nml Complete Right Deltoid Axillary C5-6 Nml Nml Nml Nml Nml 0 Nml Complete Left 1stDorInt Ulnar C8-T1 Nml Nml Nml Nml Nml 0 Nml Complete Left FlexCarRad Median C6-7 Nml Nml Nml Nml Nml 0 Nml Complete Left Biceps Musculocut C5-6 Nml Nml Nml Nml Nml 0 Nml Complete Left Triceps Radial C6-7-8 Nml Nml Nml Nml Nml 0 Nml Complete Left Deltoid Axillary C5-6 Nml Nml Nml Nml Nml 0 Nml Complete FINDINGS: Right median motor nerve showed prolonged distal latency, small amplitude and slow conduction velocity. Left median motor nerve showed prolonged distal latency, normal amplitude and normal conduction velocity. Right median sensory nerve showed absent response. All other nerves tested were within normal. Concentric needle EMG was performed in selected muscles of the bilateral upper extremities. Study did not reveal signs of electric abnormalities as shown in the table below. IMPRESSION: 1. This is an abnormal study. 2. 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 3. There is no electrodiagnostic evidence for ulnar neuropathy, brachial plexopathy, or cervical radiculopathy. Thank you for your kind referral. Oxana Aparicio MD, NAHED Board Certified, [place] Board [employer] and Rehabilitation (ABPMR) Board Certified, [place] Board of Electrodiagnostic Medicine (ABEM) CODIN 01077 x 2 MTDD
== END 2023-04-28 11:56 | disposition home or self-care (01) ==
LOC: HO.NEURO 11:55
PROVIDERS: PCP Internal Medicine; Visit Provider Orthopaedic Surgery
DX: R20.0 Anesthesia of skin (principal); R20.2 Paresthesia of skin
CPT/HCPCS: 95886; 95911

== ENCOUNTER → 2023-04-28 11:58 | Outpatient (BNV) | payer OTHER, SELFPAY | PROVIDERS: PCP Internal Medicine; Visit Provider Physical Medicine & Rehabilitation | DX: G56.13 Other lesions of median nerve, bilateral upper limbs (principal); G56.03 Carpal tunnel syndrome, bilateral upper limbs | CPT/HCPCS: 95886; 95911 ==

== ENCOUNTER 2023-05-10 14:12 | Outpatient (REF) | payer OTHER, SELFPAY ==
--- NOTE | ~2023-05-10 | XR_ITS ---
EXAMINATION: XR CHEST CLINICAL INFORMATION: Intermittent cough for 2 weeks COMPARISON: 02/27/2022 TECHNIQUE: 2 views of the chest were obtained. FINDINGS: Heart size within normal limits. No vascular congestion. Right lung is clear. Interval left hemidiaphragmatic elevation with minimal costophrenic angle blunting and left base atelectasis. Degenerative changes. XR/XR chest 2V IMPRESSION: Interval left hemidiaphragmatic elevation with left base atelectasis.
== END 2023-05-10 14:13 | disposition home or self-care (01) ==
LOC: HO.HHCX 14:12
PROVIDERS: Visit Provider Internal Medicine
DX: R05.8 Other specified cough (principal)
CPT/HCPCS: 71046

== ENCOUNTER 2023-06-07 08:31 | Outpatient (AMB) | payer OTHER, SELFPAY ==
--- NOTE | 2023-06-07 08:34 | MHC.OFFVIS ---
Intake Vital Signs 06/07/23 08:35 Height 5 ft 3.11 in Weight 161 lb 6.054 oz BMI 28.5 BP 140/78 H Blood Pressure Location Rt brachial Position Sitting Pulse 63 Pulse Source Pulse Oximeter Temp 97.3 F Temp Source Skin Pulse Oximetry (%) 96 Intake Visit Reasons: Bilat Neck Pain Intake Note: New pt presents today for consult at the request of PCP. Initially she was referred for neck pain, but she states that has resolved. Today she has complaints of pain in bones. She states she has osteoporosis and arthritis, follows with endocrinology for osteoporosis. [employer] Operator Required: Yes Turbo Electric Operator Name: Domenico [id number] Information Interpreted: clinical only Accompanied by: Self / Same As Patient Allergies Sulfa (Sulfonamide Antibiotics) Allergy (Intermediate, Verified 06/07/23 08:39) RASH/ITCH sulfamethoxazole [From BACTRIM] Allergy (Intermediate, Verified 06/07/23 08:39) HIVES trimethoprim [From BACTRIM] Allergy (Intermediate, Verified 06/07/23 08:39) HIVES oxycodone [From Percocet] Allergy (Unknown, Verified 06/07/23 08:39) Unknown penicillin V Allergy (Unknown, Verified 06/07/23 08:39) Unknown Medication List - Last Reconciled 06/07/23 by Oliva Li MD aspirin (Adult Low Dose Aspirin) 81 mg PO BEDTIME atorvastatin 80 mg PO BEDTIME blood sugar diagnostic (OneTouch Ultra Test strips) As directed calcium carbonate 600 mg PO BID cholecalciferol (vitamin D3) (Vitamin D3) 50 mcg PO QAM dulaglutide (Trulicity) 0.75 mg subcut QWEEK furosemide 40 mg PO DAILY glipizide 10 mg PO DAILY hydralazine 25 mg PO BID insulin glargine (Lantus Solostar U-100 Insulin) 14 units subcut BEDTIME lancets (TRUEplus Lancets) As directed loratadine 1 tab PO DAILY PRN metformin 1,000 mg PO BID pen needle, diabetic (UltiCare Pen Needle) As directed polyethylene glycol 3350 17 grams PO DAILY sennosides (senna) 8.6 mg PO BID valsartan 160 mg PO DAILY HPI HPI Comments History of Present Illness Details This is an 82-year-old female who was referred for evaluation of neck pain. Back in January of 2023 patient had abrupt onset of neck pain and bilateral shoulder pain, she went to her PCP, she was prescribed medication and pain resolved in 3 days. Patient states that she complains of diffuse joint pain as she has osteoporosis. She has not had any change in her joint pain. She denies any swollen joints or stiffness. She has not had any recurrent episode of neck pain. She denies any fevers, skin rashes or weight loss. She is unaware of any family history of an autoimmune rheumatic disease. [facility] Medical History Hydronephrosis of right kidney Hypertension Diabetes mellitus Gram-negative bacteremia Septic shock UTI (urinary tract infection) Calculus of kidney Osteoporosis Surgical History History of surgery Hx of hemorrhoidectomy H/O colonoscopy Hx of cystoscopy Hx of lithotripsy Hx of hysterectomy Family History Father Heart problem Mother No problems noted. 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 Female Reproductive History Menstrual Total pregnancies: 4 Number of Living Children: 4 Review of Systems Const Denies fever(s) and Denies weight loss ENT Denies neck pain Musc Denies back pain, Reports arthralgias, Denies joint swelling and Denies neck pain Skin/Breast Denies pruritus and Denies rash Physical Exam Vital Signs: Last Vital Signs Temp 97.3 F 06/07/23 08:35 Pulse 63 06/07/23 08:35 BP 140/78 H 06/07/23 08:35 Pulse Ox 96 06/07/23 08:35 BMI result Body Mass Index 28.5 Const General: cooperative, healthy appearing and comfortable Nutritional Appearance: overweight Orientation/consciousness: patient oriented x3 Limitations: no limitations HEENT Head: Yes normocephalic and Yes atraumatic Mouth: moist mucous membranes Resp Effort & Inspection: normal respiratory effort and able to speak in complete sentences Auscultation: clear to auscultation bilaterally Cardio Rate: regular rate Rhythm: regular rhythm GI Inspection: No distended Palpation (GI): Soft to palpation and nontender Skin Other: Signs of chronic venous status left ankle Neuro General: patient oriented x3 Extrem Other: Bilateral lower extremity pitting edema L>R No active synovitis Normal range of motion of neck, shoulders, elbows without pain Osteoarthritic changes of both hands Results Reviewed Results Reviewed: Labs 01/2023? ESR 56? CRP 49 mg/L [place] Western blot 2 positive IgG bands LFTs normal? HbA1c 8.4% Cervical spine x-ray 01/2023? Impression:? Moderate degenerative disc disease at C5-C6 Assessment & Plan Assessment & Plan (1) Elevated C-reactive protein (CRP): Code(s): R79.82 - Elevated C-reactive protein (CRP) Plan: This is an 82-year-old female presents for evaluation of abrupt onset of neck pain that lasted 3 days back in January of 2023, labs showed elevated ESR and CRP. Upon my evaluation today patient denies having any complaints. There is no active synovitis. There are no symptoms suggestive of an autoimmune rheumatic disease, there are no fevers, weight loss, skin rashes. No need for further workup as patient is asymptomatic from a rheumatology standpoint. Patient's PCP Can consider repeating inflammatory markers and consider working patient up for underlying causes of high inflammatory marker such as malignancy. Otherwise follow-up as needed Plan I spent 26 minutes reviewing patient's chart, evaluating patient, counseling patient and documenting in the chart Coding Level of Care Code New Pt Level 3 (86888) Diagnoses Elevated C-reactive protein (CRP) R79.82
[2023-06-07 08:35] VITALS: BP 140/78; PULSE 63; TEMP 36.3; O2SAT 96; BMI 28.5
== END 2023-06-07 08:59 | disposition home or self-care (01) ==
PROVIDERS: PCP Internal Medicine; Visit Provider Student in an Organized Health Care Education/Training Program
DX: R79.82 Elevated C-reactive protein (CRP) (principal)
CPT/HCPCS: 99203

== ENCOUNTER → 2023-06-07 08:31 | Outpatient (BNVA) | payer OTHER, SELFPAY | PROVIDERS: PCP Internal Medicine; Visit Provider Student in an Organized Health Care Education/Training Program ==

== ENCOUNTER 2023-08-16 17:43 | Outpatient (REF) | payer OTHER, SELFPAY ==
[2023-08-18 09:33] LABS: C. trachomatis RNA TMA NOT DETECTED (NOT DETECTED); Candida glabrata RNA NOT DETECTED (NOT DETECTED); Candida species RNA NOT DETECTED (NOT DETECTED); N. gonorrhoeae RNA TMA NOT DETECTED (NOT DETECTED); Trichomonas vaginalis RNA NOT DETECTED (NOT DETECTED)
== END 2023-08-16 17:44 | disposition home or self-care (01) ==
LOC: HO.HHCLNP 17:43
PROVIDERS: Visit Provider Internal Medicine
DX: B37.2 Candidiasis of skin and nail (principal); Z20.2 Contact with and (suspected) exposure to infections with a predominantly sexual mode of transmission
CPT/HCPCS: 36415; 81513; 87481; 87491; 87591; 87661

== ENCOUNTER 2023-09-05 08:23 | Outpatient (REF) | payer OTHER, SELFPAY | END 2023-09-05 08:24 | disposition home or self-care (01) | LOC: HO.MAMMO 08:23 | PROVIDERS: PCP Internal Medicine; Visit Provider Internal Medicine | DX: Z12.31 Encounter for screening mammogram for malignant neoplasm of breast (principal) | CPT/HCPCS: 77063; 77067 ==

== ENCOUNTER → 2023-09-05 08:45 | Outpatient (BNV) | payer OTHER, SELFPAY | PROVIDERS: PCP Internal Medicine; Visit Provider Radiology Diagnostic Radiology | DX: Z12.31 Encounter for screening mammogram for malignant neoplasm of breast (principal) | CPT/HCPCS: 77063; 77067 ==

== ENCOUNTER 2023-09-16 08:07 | Outpatient (REF) | payer OTHER, SELFPAY ==
[2023-09-16 12:05] LABS: Anion Gap 14 (12-20); Blood Urea Nitrogen 21 mg/dL (9-16); Calcium 9.4 mg/dL (8.4-10.2); Carbon Dioxide 25 mmol/L (22-29); Chloride 105 mmol/L (96-108); Estimated Glomerular Filt Rate > 60; Glucose Random 119 mg/dL (60-115); Potassium 4.1 mmol/L (3.3-5.1); Sodium 140 mmol/L (135-145)
== END 2023-09-16 08:08 | disposition home or self-care (01) ==
LOC: HO.HHCL 08:07
PROVIDERS: Visit Provider Internal Medicine Cardiovascular Disease
DX: R60.1 Generalized edema (principal)
CPT/HCPCS: 36415; 80048

== ENCOUNTER 2023-10-05 08:34 | Outpatient (REF) | payer OTHER, SELFPAY ==
--- NOTE | ~2023-10-05 | CT_ITS ---
EXAMINATION: CT CHEST WITHOUT CONTRAST CLINICAL INFORMATION: Left hemidiaphragm elevation COMPARISON: Chest radiograph from 05/10/2023, CT abdomen from 04/02/2022 TECHNIQUE: Multidetector volumetric CT imaging of the chest was done. Axial MIP volume rendering provided. Sagittal and coronal reformatted images were obtained. This CT examination was performed using dose optimization techniques as appropriate, variously including the following: *Automated exposure control *Adjustment of mA and/or kV according to patient size (this includes techniques or standardized protocols for targeted exams where dose is matched to indication/reason for exam; i.e. extremities or head) *Use of iterative reconstruction technique DLP: 128 mGy-cm FINDINGS: LUNGS/PLEURA: Biapical pleural parenchymal scarring. Emphysematous changes. Peripheral reticular nodular opacities. Respiratory motion artifact slightly limits evaluation. Calcified granuloma left upper lobe (series 5, image 218). Elevation of the left hemidiaphragm with subjacent atelectatic changes. No large or suspicious pulmonary nodules or masses are noted. Central airways are patent. No pneumothorax. No large pleural effusion. MEDIASTINUM: Heart is not enlarged. No pericardial effusion. Coronary artery calcifications are noted. Aorta is nonaneurysmal and demonstrates atherosclerotic calcifications. Main pulmonary artery is not enlarged. No enlarged lymph nodes per size criteria. Visualized portions of the thyroid are unremarkable. Calcifications of the left breast tissue. AXILLA: No lymphadenopathy UPPER ABDOMEN: Fatty infiltration and atrophy of the pancreas. Status post cholecystectomy. OSSEOUS STRUCTURES: Multilevel degenerative changes of the thoracolumbar spine CT/CT chest wo IV con IMPRESSION: 1. No acute process of the chest identified. 2. Elevation of the left hemidiaphragm with subjacent atelectatic changes. 3. Fatty infiltration and atrophy of the pancreas. 4. Status post cholecystectomy.
== END 2023-10-05 08:35 | disposition home or self-care (01) ==
LOC: HO.CT 08:34
PROVIDERS: PCP Internal Medicine; Visit Provider Internal Medicine
DX: J98.6 Disorders of diaphragm (principal)
CPT/HCPCS: 71250

== ENCOUNTER 2024-01-03 08:28 | Outpatient (AMB) | payer OTHER, SELFPAY ==
--- NOTE | 2024-01-03 08:29 | MHC.OFFVIS ---
Vital Signs 01/03/24 08:30 Height 5 ft 3.11 in Weight 158 lb 15.253 oz BMI 28.1 BP 130/72 Blood Pressure Location Lt brachial Position Sitting Pulse 68 Pulse Source Pulse Oximeter Intake Visit Reasons: f/u osteoporosis Intake Note: Patient present today for Osteoporosis follow up visit. Business Information Analyst Required: Yes Business Information Analyst Language: Brazilian Information Interpreted: non-clinical & clinical Accompanied by: Self / Same As Patient Allergies Sulfa (Sulfonamide Antibiotics) Allergy (Intermediate, Verified 01/03/24 08:35) RASH/ITCH sulfamethoxazole [From BACTRIM] Allergy (Intermediate, Verified 01/03/24 08:35) HIVES trimethoprim [From BACTRIM] Allergy (Intermediate, Verified 01/03/24 08:35) HIVES oxycodone [From Percocet] Allergy (Unknown, Verified 01/03/24 08:35) Unknown penicillin V Allergy (Unknown, Verified 01/03/24 08:35) Unknown Medication List - Last Reconciled 01/03/24 by Leonardo Banuelos MD aspirin (Adult Low Dose Aspirin) 81 mg PO BEDTIME atorvastatin 80 mg PO BEDTIME blood sugar diagnostic ([employer]Touch Ultra Test strips) As directed calcium carbonate 600 mg PO BID cholecalciferol (vitamin D3) (Vitamin D3) 50 mcg PO QAM dulaglutide (Trulicity) 0.75 mg subcut QWEEK furosemide 40 mg PO DAILY glipizide 10 mg PO DAILY hydralazine 25 mg PO BID insulin glargine (Lantus Solostar U-100 Insulin) 14 units subcut BEDTIME lancets (TRUEplus Lancets) As directed loratadine 1 tab PO DAILY PRN metformin 1,000 mg PO BID pen needle, diabetic (UltiCare Pen Needle) As directed polyethylene glycol 3350 17 grams PO DAILY sennosides (senna) 8.6 mg PO BID valsartan 160 mg PO DAILY HPI Comments Details: 83-year-old female today for follow-up visit, for osteoporosis She is feeling well, but has bilateral knee pain. She he has been taking calcium citrate 500 mg twice a day. She reports no falls. She had Reclast , last dose 02/09/18, 02/14/2017, 02/16/2016. She has other PMH of hypertension, hyperlipidemia, depression, diabetes mellitus type 2, GERD, nephrolithiasis, osteoarthritis. Denies prior fragility fractures, she had a traumatic left ankle fracture after falling from a flight the stairs. She has GERD, Denies FH of fractures or osteoporosis, + nephrolithiasis, no chronic steroids used, never smoker, denies anti seizures medications, no SSRI, + PPI. Negative History of head or neck irradiation. Bisphosphonates use: she had Reclast 3 doses. Calcium intake: Calcium citrate 500 mg twice a day. Is taking vitamin-D 1000 international units daily. 01/31/18 DEXA AP SPINE L1-L4: Current: BMD 1.079 g/cm2, Z-score 0.3, T-score -0.8, normal, 5.5% increase from previous, 30.0% increase from baseline (<5% change is not significant). Prior: BMD 1.023 g/cm2. Baseline: BMD 0.830 g/cm2. LEFT FEMUR, NECK: Current: BMD 0.775 g/cm2, Z-score -0.3, T-score -1.9, osteopenia. Prior: BMD 0.754 g/cm2. Baseline: BMD 0.699 g/cm2. LEFT FEMUR, TOTAL: Current: BMD 0.882 g/cm2, Z-score 0.4, T-score -1.0, normal, 0.1% increase from previous, 14.8% increase from baseline (<5% change is not significant). Prior: BMD 0.881 g/cm2. Baseline: BMD 0.768 g/cm2. Secondary workup was negative. Laboratory Tests Current: BMD 1.057 g/cm2, Z-score 0.3, T-score -1.0, normal, 2.0% decrease from previous, 10.9% increase from baseline (<5% change is not significant). Prior: BMD 1.079 g/cm2. Baseline: BMD 0.953 g/cm2. LEFT FEMUR, NECK: Current: BMD 0.781 g/cm2, Z-score 0.0, T-score -1.9, osteopenia. Prior: BMD 0.775 g/cm2. Baseline: BMD 0.720 g/cm2. LEFT FEMUR, TOTAL: Current: BMD 0.885 g/cm2, Z-score 0.7, T-score -1.0, normal, 0.3% increase from previous, 10.5% increase from baseline (<5% change is not significant). Prior: BMD 0.882 g/cm2. Baseline: BMD 0.801 g/cm2. LEFT FOREARM RADIUS 33%: BMD 0.535 g/cm2, Z-score -1.2, T-score -3.9, osteoporosis. Prior:? Not previously measured. IDENTIFIED RISK FACTORS: Early menopause, hysterectomy, bilateral oophorectomy, rheumatoid arthritis, secondary osteoporosis. HISTORY OF FRACTURE: None listed. MEDICATIONS: Calcium, vitamin D. MM/XR DEXA appendicular skeleton IMPRESSION: 1. DIAGNOSIS: Osteoporosis based on the lowest T-score value of -3.9 in the forearm radius 33% applying World Health Organization criteria.? 01/08/19 01/08/19 08/16/19 00:00 09:56 14:01 Creatinine Est GFR (Non-Af Amer) Calcium Magnesium 1.9 Alkaline Phosphatase 111 Albumin 4.2 N-Telopeptide X-linked 26 25-OH Vitamin D Total 63.2 08/30/19 07:56 Creatinine 0.93 Est GFR (Non-Af Amer) 58 Calcium 9.6 D Magnesium Alkaline Phosphatase Albumin N-Telopeptide X-linked 25-OH Vitamin D Total Being treated with calcium and vitamin-D. No fractures since last visit. Does complain of arthritic pain PFSH Medical History Hydronephrosis of right kidney Hypertension Diabetes mellitus Gram-negative bacteremia Septic shock UTI (urinary tract infection) Calculus of kidney Osteoporosis Surgical History History of surgery Hx of hemorrhoidectomy H/O colonoscopy Hx of cystoscopy Hx of lithotripsy Hx of hysterectomy Family History Father Heart problem Mother No problems noted. 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 Last DEXA 2018 showed osteopenia. Repeat DEXA showed isolated osteoporosis in the forearm. This is secondary workup was completed and was negative Plan is to check her bone turnover marker urinary NTX. Will also repeat DEXA bone density. If urine NTX is suppressed and bone density has not deteriorated would not retreat . If bone turnover markers increased and/or bone density has decreased, would consider giving another dose of Reclast. Orders: Orders XR DEXA axial skeleton Today M81.0 - Age-related osteoporosis without current pathological fracture Collagen Crosslinks NTX 2 Days M81.0 - Age-related osteoporosis without current pathological fracture Coding Level of Care Code Est Pt Level 3 (60136) Diagnoses Osteoporosis M81.0
[2024-01-03 08:30] VITALS: BP 130/72; PULSE 68; BMI 28.1
== END 2024-01-03 08:42 | disposition home or self-care (01) ==
PROVIDERS: PCP Internal Medicine; Visit Provider Internal Medicine Endocrinology, Diabetes & Metabolism
DX: M81.0 Age-related osteoporosis without current pathological fracture (principal)
CPT/HCPCS: 99213

== ENCOUNTER → 2024-01-03 08:28 | Outpatient (BNVA) | payer OTHER, SELFPAY | PROVIDERS: Visit Provider Internal Medicine Endocrinology, Diabetes & Metabolism | DX: M81.0 Age-related osteoporosis without current pathological fracture (principal) | CPT/HCPCS: 99212 ==

== ENCOUNTER 2024-02-02 09:36 | Outpatient (REF) | payer OTHER, SELFPAY ==
--- NOTE | ~2024-02-02 | MM_ITS ---
EXAMINATION: BONE DENSITOMETRY CLINICAL INDICATION: Age-related osteoporosis without current pathological fracture. COMPARISON: Previous BD dated 12/31/2021 and baseline BD dated 03/28/2007. TECHNIQUE: Using a [employer] DXA System (software version: 13.1) manufactured by [employer], dual-energy x-ray absorptiometry was performed of the lumbar spine and left hip. The images are of good technical quality. Summary results are attached. FINDINGS: LEFT FEMUR, NECK: Current: BMD 0.64 g/cm2, Z-score -0.7, T-score -2.8, osteoporosis. Prior: BMD 0.781 g/cm2. Baseline: BMD 0.720 g/cm2. LEFT FEMUR, TOTAL: Current: BMD 0.762 g/cm2, Z-score 0.0, T-score -1.9, osteopenia, 13.9% decrease from previous, 4.9% decrease from baseline (<5% change is not significant). Prior: BMD 0.885 g/cm2. Baseline: BMD 0.801 g/cm2. AP SPINE L1-L2 (excluding L3 and L4): The data of L1-L4 has been changed to exclude the L3 and L4 vertebral bodies, because degenerative sclerosis at these levels may cause overestimation of lumbar spine density. Current: BMD 0.994 g/cm2, Z-score 0.2, T-score -1.4, osteopenia, 3.6% increase from previous, 10.6% increase from baseline (<5% change is not significant). Prior: BMD 0.959 g/cm2. Baseline: BMD 0.899 g/cm2. IDENTIFIED RISK FACTORS: Menopause, secondary osteoporosis (type 1 diabetes), osteoporosis. HISTORY OF FRACTURE: None listed. MEDICATIONS: None listed. MM/XR DEXA axial skeleton IMPRESSION: 1. DIAGNOSIS: Osteoporosis based on the lowest T-score value of -2.8 in the femoral neck applying World Health Organization criteria. 2. 10-YEAR FRACTURE RISK PREDICTION, FRAX: According to the guidelines, FRAX calculation should only be performed on patients in the osteopenia bone density category. Therefore, FRAX was not performed on this patient. 3. Treatment Recommendations: NOF guidelines recommend consideration for treatment in postmenopausal women and men age 50 and older presenting with the following: -A hip or vertebral (clinical or morphometric) fracture. -T-score less than or equal to -2.5 at the femoral neck or spine after appropriate evaluation to exclude secondary causes. -Low bone mass at the hip or spine and a 10-year fracture probability by FRAX of greater than or equal to 3% for hip fracture or greater than or equal to 20% for major osteoporotic fracture based on the [place] adapted WHO algorithm. 4. Other Recommendations: All treatment decisions require clinical judgment and consideration of individual patient factors, including patient preferences, comorbidities, previous drug use, risk factors not captured in the FRAX model (e.g. frailty, falls, vitamin D deficiency, increased bone turnover, interval significant decline in bone density) and possible under or overestimation of fracture risk by FRAX. Additional medical evaluation for secondary cause of low bone mineral density may be appropriate. FUTURE SCAN RECOMMENDATION: People with diagnosed cases of osteoporosis or at high risk for fracture should have regular bone mineral density tests. For patients eligible for Medicare, routine testing is allowed once every 2 years. The testing frequency can be increased to one year for patients who have rapidly progressing disease, those who are receiving or discontinuing medical therapy to restore bone mass, or have additional risk factors.
== END 2024-02-02 09:37 | disposition home or self-care (01) ==
LOC: HO.MAMMO 09:36
PROVIDERS: PCP Internal Medicine; Visit Provider Internal Medicine Endocrinology, Diabetes & Metabolism
DX: Z13.820 Encounter for screening for osteoporosis (principal); Z78.0 Asymptomatic menopausal state; M81.0 Age-related osteoporosis without current pathological fracture
CPT/HCPCS: 77080

== ENCOUNTER 2024-06-05 09:12 | Outpatient (REF) | payer OTHER, SELFPAY ==
--- NOTE | ~2024-06-05 | XR_ITS ---
EXAMINATION: X-RAY LEFT LOWER LEG X-RAY TIBIA/FIBULA CLINICAL INFORMATION: Lower leg mass, patient did not specify where mass was located poor historian, best possible attempts for images made per technologist statement. TECHNIQUE: AP and lateral views of the left tibia/fibula. COMPARISON: None available. FINDINGS: Bony exostosis/spurring versus soft tissue calcification along the medial femoral condyle was not appreciated on exam of 05/17/2016. Scattered calcifications along the soft tissues of the anterior leg. No gross displaced fracture of the tibia/fibula appreciated. XR/XR tibia fibula LT 2V IMPRESSION: 1. Bony exostosis/spurring versus soft tissue calcification along the medial femoral condyle was not appreciated on exam of 05/17/2016. 2. Scattered calcifications along the soft tissues of the anterior leg. 2. This study was presented today June 05, 2024 for interpretation. Stat results provided at this time as requested by referring provider. Electronically signed by: Kiara Link MD 06/05/2024 11:14 AM EDT
== END 2024-06-05 09:13 | disposition home or self-care (01) ==
LOC: HO.HHCX 09:12
PROVIDERS: Visit Provider Internal Medicine
DX: R22.42 Localized swelling, mass and lump, left lower limb (principal)
CPT/HCPCS: 73590

== ENCOUNTER 2024-06-05 16:42 | Outpatient (REF) | payer OTHER, SELFPAY ==
[2024-06-06 12:47] LABS: Bacterial Vaginosis PCR NEGATIVE (Negative); Candida Group PCR NOT DETECTED (Not Detect); Candida glab krusei PCR NOT DETECTED (Not Detect); Trichomonas vaginalis PCR NOT DETECTED (Not Detect)
== END 2024-06-05 16:43 | disposition home or self-care (01) ==
LOC: HO.HHCLNP 16:42
PROVIDERS: Visit Provider Advanced Practice Midwife
DX: R30.0 Dysuria (principal); N89.8 Other specified noninflammatory disorders of vagina
CPT/HCPCS: 0352U; 87086

== ENCOUNTER 2024-07-03 08:26 | Outpatient (REF) | payer OTHER, SELFPAY ==
[2024-07-03 09:58] LABS: Alanine Aminotransferase 23 U/L (0-31); Alkaline Phosphatase 115 U/L (39-117); Anion Gap 12 (12-20); Aspartate Amino Transferase 15 U/L (5-31); Bilirubin Total 0.4 mg/dL (0.0-1.0); Blood Urea Nitrogen 16 mg/dL (9-16); Calcium 8.5 mg/dL (8.4-10.2); Carbon Dioxide 25 mmol/L (22-29); Chloride 104 mmol/L (96-108); Estimated Glomerular Filt Rate > 60; Glucose Random 271 mg/dL (60-115); Potassium 4.1 mmol/L (3.3-5.1); Sodium 137 mmol/L (135-145); Total Protein 7.4 g/dL (6.5-8.0)
== END 2024-07-03 08:27 | disposition home or self-care (01) ==
LOC: HO.LAB 08:26
PROVIDERS: PCP Internal Medicine; Visit Provider Internal Medicine Endocrinology, Diabetes & Metabolism
DX: I10 Essential (primary) hypertension (principal)
CPT/HCPCS: 36415; 80053

== ENCOUNTER 2024-07-05 08:09 | Outpatient (AMB) | payer OTHER, SELFPAY ==
--- NOTE | 2024-07-05 08:10 | A.OFFVIS_ITS ---
Vital Signs 07/05/24 08:11 Height 5 ft 3.11 in Weight 152 lb 1.903 oz BMI 26.8 BP 128/76 Blood Pressure Location Rt brachial Position Sitting Pulse 74 Pulse Source Pulse Oximeter Intake Visit Reasons: f/u osteoporosis-confirmed Intake Note: Patient present today for Osteoporosis follow up visit. Salesperson Automobiles Required: Yes Salesperson [employer]obiles Language: Rotary Drier Services: Salesperson [employer]obiles Offered & Declined Salesperson Automobiles [facility] [place] Information Interpreted: non-clinical & clinical Accompanied by: Self / Same As Patient Allergies Sulfa (Sulfonamide Antibiotics) Allergy (Intermediate, Verified 07/05/24 08:13) RASH/ITCH sulfamethoxazole [From BACTRIM] Allergy (Intermediate, Verified 07/05/24 08:13) HIVES trimethoprim [From BACTRIM] Allergy (Intermediate, Verified 07/05/24 08:13) HIVES oxycodone [From Percocet] Allergy (Unknown, Verified 07/05/24 08:13) Unknown penicillin V Allergy (Unknown, Verified 07/05/24 08:13) Unknown Medication List - Last Reconciled 07/05/24 by Leonardo Banuelos MD aspirin (Adult Low Dose Aspirin) 81 mg PO BEDTIME atorvastatin 80 mg PO BEDTIME blood sugar diagnostic ([employer]itickTouch Ultra Test strips) As directed calcium carbonate 600 mg PO BID cholecalciferol (vitamin D3) (Vitamin D3) 50 mcg PO QAM dulaglutide (Trulicity) 0.75 mg subcut QWEEK furosemide 40 mg PO DAILY glipizide 10 mg PO QAM hydralazine 25 mg PO BID insulin glargine (Lantus Solostar U-100 Insulin) 14 units subcut BEDTIME lancets (TRUEplus Lancets) As directed loratadine 1 tab PO DAILY PRN metformin 1,000 mg PO BID pen needle, diabetic (UltiCare Pen Needle) As directed polyethylene glycol 3350 17 grams PO DAILY sennosides (senna) 8.6 mg PO BID valsartan 160 mg PO DAILY HPI Comments Details: 83-year-old female today for follow-up visit, for osteoporosis She is feeling well, but has bilateral knee pain. She he has been taking calcium citrate 500 mg twice a day. She reports no falls. She had Reclast , last dose 02/09/18, 02/14/2017, 02/16/2016. She has other PMH of hypertension, hyperlipidemia, depression, diabetes mellitus type 2, GERD, nephrolithiasis, osteoarthritis. Denies prior fragility fractures, she had a traumatic left ankle fracture after falling from a flight the stairs. She has GERD, Denies FH of fractures or osteoporosis, + nephrolithiasis, no chronic steroids used, never smoker, denies anti seizures medications, no SSRI, + PPI. Negative History of head or neck irradiation. Bisphosphonates use: she had Reclast 3 doses. Calcium intake: Calcium citrate 500 mg twice a day. Is taking vitamin-D 1000 international units daily. 01/31/18 DEXA AP SPINE L1-L4: Current: BMD 1.079 g/cm2, Z-score 0.3, T-score -0.8, normal, 5.5% increase from previous, 30.0% increase from baseline (<5% change is not significant). Prior: BMD 1.023 g/cm2. Baseline: BMD 0.830 g/cm2. LEFT FEMUR, NECK: Current: BMD 0.775 g/cm2, Z-score -0.3, T-score -1.9, osteopenia. Prior: BMD 0.754 g/cm2. Baseline: BMD 0.699 g/cm2. LEFT FEMUR, TOTAL: Current: BMD 0.882 g/cm2, Z-score 0.4, T-score -1.0, normal, 0.1% increase from previous, 14.8% increase from baseline (<5% change is not significant). Prior: BMD 0.881 g/cm2. Baseline: BMD 0.768 g/cm2. Secondary workup was negative. Laboratory Tests Current: BMD 1.057 g/cm2, Z-score 0.3, T-score -1.0, normal, 2.0% decrease from previous, 10.9% increase from baseline (<5% change is not significant). Prior: BMD 1.079 g/cm2. Baseline: BMD 0.953 g/cm2. LEFT FEMUR, NECK: Current: BMD 0.781 g/cm2, Z-score 0.0, T-score -1.9, osteopenia. Prior: BMD 0.775 g/cm2. Baseline: BMD 0.720 g/cm2. LEFT FEMUR, TOTAL: Current: BMD 0.885 g/cm2, Z-score 0.7, T-score -1.0, normal, 0.3% increase from previous, 10.5% increase from baseline (<5% change is not significant). Prior: BMD 0.882 g/cm2. Baseline: BMD 0.801 g/cm2. LEFT FOREARM RADIUS 33%: BMD 0.535 g/cm2, Z-score -1.2, T-score -3.9, osteoporosis. Prior:? Not previously measured. IDENTIFIED RISK FACTORS: Early menopause, hysterectomy, bilateral oophorectomy, rheumatoid arthritis, secondary osteoporosis. HISTORY OF FRACTURE: None listed. MEDICATIONS: Calcium, vitamin D. MM/XR DEXA appendicular skeleton IMPRESSION: 1. DIAGNOSIS: Osteoporosis based on the lowest T-score value of -3.9 in the forearm radius 33% applying World Health Organization criteria.? 01/08/19 01/08/19 08/16/19 00:00 09:56 14:01 Creatinine Est GFR (Non-Af Amer) Calcium Magnesium 1.9 Alkaline Phosphatase 111 Albumin 4.2 N-Telopeptide X-linked 26 25-OH Vitamin D Total 63.2 08/30/19 07:56 Creatinine 0.93 Est GFR (Non-Af Amer) 58 Calcium 9.6 D Magnesium Alkaline Phosphatase Albumin N-Telopeptide X-linked 25-OH Vitamin D Total Being treated with calcium and vitamin-D. No fractures since last visit. Does complain of arthritic pain [facility] History Hydronephrosis of right kidney Hypertension Diabetes mellitus Gram-negative bacteremia Septic shock UTI (urinary tract infection) Calculus of kidney Osteoporosis Surgical History History of surgery Hx of hemorrhoidectomy H/O colonoscopy Hx of cystoscopy Hx of lithotripsy Hx of hysterectomy Family History Father Heart problem Mother No problems noted. 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 Last DEXA 2018 showed osteopenia. . This is secondary workup was completed and was negative. Repeat DEXA showed osteoporosis in the femoral neck. Plan is to check her bone turnover marker urinary NTX. If urine NTX is rising, would consider giving another dose of intravenous Reclast or of NTX is stable may consider to to continue observe Coding Level of Care Code New Pt Level 3 (36918) Diagnoses Osteoporosis M81.0
[2024-07-05 08:11] VITALS: BP 128/76; PULSE 74; BMI 26.8
== END 2024-07-05 08:31 | disposition home or self-care (01) ==
PROVIDERS: PCP Internal Medicine; Visit Provider Internal Medicine Endocrinology, Diabetes & Metabolism
DX: M81.0 Age-related osteoporosis without current pathological fracture (principal)
CPT/HCPCS: 99213

== ENCOUNTER → 2024-07-05 08:09 | Outpatient (BNVA) | payer OTHER, SELFPAY | PROVIDERS: PCP Internal Medicine; Visit Provider Internal Medicine Endocrinology, Diabetes & Metabolism | DX: M81.0 Age-related osteoporosis without current pathological fracture (principal); M25.562 Pain in left knee; M25.561 Pain in right knee; M06.9 Rheumatoid arthritis, unspecified; Z78.0 Asymptomatic menopausal state; Z90.710 Acquired absence of both cervix and uterus; Z90.722 Acquired absence of ovaries, bilateral | CPT/HCPCS: 99212 ==

== ENCOUNTER 2024-08-05 13:40 | Inpatient (IN) | payer OTHER, SELFPAY ==
[2024-08-05] VITALS (7 sets, daily range): BP systolic 105–154; BP diastolic 59–90; PULSE 73–104; RESP 16–18; TEMP 36.4–36.9; O2SAT 93–100; BMI 25.7
--- NOTE | ~2024-08-05 | CT_ITS ---
EXAMINATION: CT CERVICAL SPINE WITHOUT CONTRAST CLINICAL INFORMATION: Fall neck pain COMPARISON: X-ray of the cervical spine January 2023 TECHNIQUE: The scans cervical spine was performed with reconstruction imaging performed at the acquisition workstation. This CT examination was performed using dose optimization techniques as appropriate, variously including the following: *Automated exposure control *Adjustment of mA and/or kV according to patient size (this includes techniques or standardized protocols for targeted exams where dose is matched to indication/reason for exam; i.e. extremities or head) *Use of iterative reconstruction technique DLP: 356 mGy-cm FINDINGS: The vertebral bodies normally aligned with normal height. Multilevel degenerative disc changes present at the C3-C4 through C6-C7 levels manifested by varying degrees of disc space narrowing and endplate osteophytes. There is some ossification also noted along the anterior longitudinal ligament. Facet arthrosis on the left side of the 3 and C3-C4 level There is no fracture. Location. The surrounding soft tissues are normal. The lung apices are clear CT/CT cervical spine wo IV con IMPRESSION: 1. Cervical spondylosis of the cervical spine. 2. No acute abnormality. Fleischner guidelines were followed. Electronically signed by: Brenden Goldsmith MD 08/05/2024 04:51 PM [facility] MARINELLI
--- NOTE | ~2024-08-05 | CT_ITS ---
EXAMINATION: CT HEAD WITHOUT CONTRAST CLINICAL INFORMATION: Fall head strike COMPARISON: CT scan of the head July 2019 TECHNIQUE: Contiguous axial imaging was performed from the skull base to vertex without intravenous administration of contrast. This CT examination was performed using dose optimization techniques as appropriate, variously including the following: *Automated exposure control *Adjustment of mA and/or kV according to patient size (this includes techniques or standardized protocols for targeted exams where dose is matched to indication/reason for exam; i.e. extremities or head) *Use of iterative reconstruction technique DLP: 673 mGy-cm FINDINGS: Soft tissues and osseous structures: Normal. There is no intracranial mass hemorrhage or cerebral edema Ventricles and sulci normal. No extra-axial fluid collection. Sinuses and mastoid air cells clear CT/CT head/brain wo IV con IMPRESSION: No acute intracranial pathology. Electronically signed by: Brenden Goldsmith MD 08/05/2024 04:47 PM T[facility]AN
--- NOTE | ~2024-08-05 | CT_ITS ---
EXAMINATION: CT CHEST, ABDOMEN AND PELVIS WITHOUT CONTRAST CLINICAL INFORMATION: Fall. Trauma. COMPARISON: CT chest dated 10/05/2023. CT abdomen/pelvis dated 04/02/2022. TECHNIQUE: Contiguous axial thin section helical images of the chest, abdomen and pelvis were performed without IV contrast. The data set was reformatted in the coronal and sagittal planes and reviewed on an independent workstation. This CT examination was performed using dose optimization techniques as appropriate, variously including the following: *Automated exposure control *Adjustment of mA and/or kV according to patient size (this includes techniques or standardized protocols for targeted exams where dose is matched to indication/reason for exam; i.e. extremities or head) *Use of iterative reconstruction technique DLP: 2140 mGy-cm. FINDINGS: LUNGS: Mild bilateral dependent atelectasis with more focal opacities in the left lingula and left lower lobe, which could represent atelectasis versus early pneumonia. No pulmonary nodule or mass. The central airways are patent. PLEURA: No pleural effusion or pneumothorax. No pleural mass or thickening. MEDIASTINUM: No cardiomegaly. No significant pericardial effusion. Pleural thickening along the left heart is unchanged. No thoracic aortic dilatation. No significant mediastinal or hilar lymphadenopathy. CORONARY ARTERY CALCIFICATION: None present. CHEST WALL/AXILLA: No lymphadenopathy. THYROID: Unremarkable LIVER, GALLBLADDER, AND BILIARY TREE: Normal size, shape, and attenuation. No focal hepatic lesion. No intra or extrahepatic biliary ductal dilatation. Status post cholecystectomy. PANCREAS: Atrophic with partial fatty replacement. SPLEEN: Unremarkable. ADRENAL GLANDS: Unremarkable. KIDNEYS AND URETERS: Normal size, shape, and attenuation. Distal right ureteral stone at the level of the pelvic outlet measuring up to 0.5 x 0.3 cm located approximately 7.7 cm proximal to the ureterovesicular junction. Minimal right hydroureter and hydronephrosis with minimal adjacent fat stranding. No left ureteral stone. Tiny nonobstructing bilateral renal stones measuring up to 0.2 cm within the left lower pole. No left-sided hydroureter or hydronephrosis. BLADDER: Unremarkable. GASTROINTESTINAL TRACT: No small or large bowel obstruction. Descending colon and sigmoid diverticulosis without evidence of acute diverticulitis. No significant bowel wall thickening or inflammatory change. The appendix is not well seen. No right lower quadrant inflammatory change to suggest acute diverticulitis. PERITONEAL CAVITY: No intra-abdominal free air, free fluid, mass, or organized fluid collection. ABDOMINAL WALL: No significant abdominal wall hernia. LYMPH NODES: No significant lymphadenopathy. VASCULAR: No abdominal aortic dilatation. Scattered atherosclerotic calcifications. The IVC is unremarkable. PELVIC VISCERA: The uterus appears surgically absent. OSSEOUS STRUCTURES: No lytic or blastic osseous lesion. CT/CT abdomen pelvis wo IV con IMPRESSION: 1. Bilateral dependent atelectasis with more focal opacities in the left lingula and left lower lobe, which could represent atelectasis versus early pneumonia. No pleural effusion or pneumothorax. 2. Distal right ureteral stone at the level of the pelvic outlet measuring up to 0.5 cm. Minimal right hydroureter and hydronephrosis with minimal adjacent fat stranding. Tiny nonobstructing bilateral renal stones. No left-sided hydronephrosis or hydroureter. 3. Diverticulosis without evidence of acute diverticulitis. No small or large bowel obstruction. Appendix not seen. No right lower quadrant inflammatory change to suggest acute diverticulitis. 4. No acute fracture or dislocation. Electronically signed by: Simba Turner MD 08/05/2024 05:08 PM [facility]
[2024-08-05 14:10] LABS: Glucose, Whole Blood 430 mg/dL (60-115)
--- NOTE | 2024-08-05 14:25 | ED.GENADULT ---
HPI - General Adult General Chief complaint: General Medical Stated complaint: FALL,BS 411,ABD PAIN PER EMS Time Seen by Provider: 08/05/24 13:46 Source: patient and EMS Mode of arrival: EMS Limitations: altered mental status History of Present Illness ED Provider: CORRY Crum HPI narrative: This is an 83-year-old female history of diabetes, hypertension, E coli presenting to the emergency department with complaints of fall, abdominal pain. She states she fell today trying to go to the bathroom she thinks she tripped and fell, no head strike or loss of consciousness. She tells me she is not on blood thinners. She denies preceding symptoms to fall. She also reports over the past few weeks her blood sugars have been high in the 400s. She states this is not normal for her. Overall she feels while other than abdominal pain which she states is all over but worse on the left-hand side. She does not think she hit her abdomen and against anything however she is not the best historian. She is only oriented to person and place not time or situation. At this time she denies chest pain, shortness of breath, fevers, chills, recent illness, nausea, vomiting, blood in stool, changes in urination, back pain, numbness or tingling. Related Data Home Medications ?Medication ?Instructions ?Recorded ?Confirmed aspirin 81 mg tablet,delayed 81 mg PO BEDTIME 12/26/20 10/12/22 release (Adult Low Dose Aspirin) hydralazine 25 mg tablet 25 mg PO BID 12/26/20 10/12/22 insulin glargine 100 unit/mL (3 14 unit subcut BEDTIME 12/26/20 10/12/22 mL) subcutaneous pen (Lantus Solostar U-100 Insulin) metformin 1,000 mg tablet 1,000 mg PO BID 12/26/20 10/12/22 atorvastatin 80 mg tablet 80 mg PO BEDTIME 12/23/21 10/12/22 blood sugar diagnostic (Bizdomuch #10 ea 12/23/21 10/12/22 Ultra Test strips) dulaglutide 0.75 mg/0.5 mL 0.75 mg subcut QWEEK 12/23/21 10/12/22 subcutaneous pen injector (Trulicity) furosemide 40 mg tablet 40 mg PO DAILY 12/23/21 10/12/22 lancets 33 gauge (TRUEplus Lancets) #100 ea 12/23/21 10/12/22 pen needle, diabetic 31 gauge x #1,200 ea 12/23/21 10/12/22 5/16 (UltiCare Pen Needle) valsartan 160 mg tablet 160 mg PO DAILY 12/23/21 10/12/22 sennosides 8.6 mg tablet (senna) 8.6 mg PO BID 03/17/22 10/12/22 loratadine 10 mg tablet 1 tab PO DAILY PRN Allergic 04/02/22 10/12/22 Symptoms Previous Rx's ?Medication ?Instructions ?Recorded polyethylene glycol 3350 17 gram 17 g PO DAILY #30 ea 03/02/22 oral powder packet calcium carbonate 600 mg PO BID #180 tabs 01/02/24 cholecalciferol (vitamin D3) 50 50 mcg PO QAM #30 caps 02/10/24 mcg (2,000 unit) capsule (Vitamin D3) glipizide 10 mg tablet 10 mg PO QAM #90 tabs 02/10/24 Allergies Allergy/AdvReac Type Severity Reaction Status Date / Time Sulfa (Sulfonamide Allergy Intermediate RASH/ITCH Verified 08/05/24 14:00 Antibiotics) sulfamethoxazole Allergy Intermediate HIVES Verified 08/05/24 14:00 [From BACTRIM] trimethoprim [From BACTRIM] Allergy Intermediate HIVES Verified 08/05/24 14:00 oxycodone [From Percocet] Allergy Unknown Unknown Verified 08/05/24 14:00 penicillin V Allergy Unknown Unknown Verified 08/05/24 14:00 Review of Systems Review of Systems: Yes all other systems are reviewed and are negative [facility] Past Medical History Attestation statement: The following information was validated with the patient. Source: old records reviewed and nursing notes reviewed Medical History Hydronephrosis of right kidney Hypertension Diabetes mellitus Gram-negative bacteremia Septic shock UTI (urinary tract infection) Calculus of kidney Osteoporosis Surgical History History of surgery Hx of hemorrhoidectomy H/O colonoscopy Hx of cystoscopy Hx of lithotripsy Hx of hysterectomy Family History Family History Father Heart problem Mother No problems noted. 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 Oriented X3.? No acute distress.? Head: Normocephalic, atraumatic, no step-offs or deformities Eyes: Pupils equal, round and reactive to light.? Neck: Normal inspection.? Neck supple.? CVS: Normal heart rate and rhythm.? Pulses normal.? Respiratory: No respiratory distress.? Breath sounds normal.? Abdomen: Soft and L sided abd discomfort w/ palpation.? Skin: Skin warm and dry.? Normal skin color.? Normal skin turgor.? Extremities: No lower extremity edema.? No calf ttp. 5/5 strength to bilateral upper and lower extremities Neuro: Oriented X 3.? No motor deficit.? No sensory deficit. CN 2-12 intact Course Reevaluation(s) Reevaluation #1: CBC with leukocytosis 14.2 with left shift. Chemistry with low sodium 134 will give IV fluids, anion gap of 22, BUN of 36, creatinine of 2.09, at this time infection suspected. I did add blood cultures, lactic acid, 30 cc/kilos bolus of normal saline as well as prophylactic ceftriaxone. Beta hydroxybutyrate is normal and patient has no acidosis unlikely that this is DKA or HHS. Will also give insulin for patient's blood sugar. Time: 15:31 Reevaluation #2: Trop negative ekg pending. Imaging & UA pending Time: 15:32 Reevaluation #3: Sign out to CORRY Samaniego Time: 15:53 Medications Administered Discontinued Medications Generic Name Dose Route Start Last Admin Trade Name Freq PRN Reason Stop Dose Admin Sodium Chloride 1,000 mls @ 999 mls/hr 08/05/24 14:15 08/05/24 14:37 Ns IV 08/05/24 15:15 999 mls/hr .Q1H1M [facility] Administration Medical Decision Making Medical Decision Making [facility] Narrative: 83-year-old female presents status post trip and fall reporting left-sided abdominal pain. Also reports high sugars at home for the past few weeks. Patient poor historian. Physical exam with left-sided abdominal tenderness on exam. No gross abnormalities otherwise. Normal neurological assessment. Patient is collared out of precaution. NIH stroke scale 0, GCS 15. Will rule out traumatic injury to head, neck, chest, abdomen and pelvis. Will rule out metabolic derangements. Unlikely DKA or HHS. Plan- UA, labs, imaging Differential Diagnosis Differential Diagnoses: The differential diagnosis associated with the presentation includes (Will rule out traumatic injury to head, neck, chest, abdomen and pelvis. Will rule out metabolic derangements. Unlikely DKA or HHS.) Admission/Observation Consideration of admission/observation: Escalation of care including admission/observation considered Lab Data [facility] Lab Attestation statement: I reviewed the patient's lab results. 08/05/24 14:35 08/05/24 14:35 Labs: Lab Results 08/05/24 08/05/24 08/05/24 Range/Units 13:51 14:35 14:40 WBC 14.2 H (4.8-10.8) X10*3/uL RBC 5.11 D (4.20-5.50) X10*6/uL Hgb 15.5 D (12.0-16.0) g/dl Hct 45.7 D (37.0-47.0) % MCV 89.4 (80.0-98.0) fL MCH 30.3 (27.0-33.0) pg MCHC 33.9 (31.0-35.0) g/dl RDW 13.3 (11.0-16.0) % Plt Count 349 D (160-400) X10*3/uL MPV 9.7 (9.4-12.3) fL Immature Gran % (Auto) 0.4 (0.0-0.4) % Neut % (Auto) 83.9 H (45-73) % Lymph % (Auto) 10.6 L (20-40) % [place] % (Auto) 4.7 (2-11) % Eos % (Auto) 0.0 (0-4) % Baso % (Auto) 0.4 (0-2) % Lymph # (Auto) 1.5 (1.2-4.9) X10*3/uL [place] # (Auto) 0.7 (0.1-1.2) X10*3/uL Eos # (Auto) 0.0 (0.0-0.4) X10*3/uL Baso # (Auto) 0.1 (0.0-0.2) X10*3/uL Abs Immat Gran (auto) 0.06 H (0.00-0.03) X10*3/uL Absolute Neuts (auto) 11.9 H (2.0-8.3) x10*3/uL Absolute Nucleated RBC 0.000 (0.0-0.012) X10*3/uL Nucleated RBC % (auto) 0.0 (0.0-0.2) /100WBC VBG pH 7.42 (7.32-7.43) VBG pCO2 39 mmHg VBG pO2 39 mmHg VBG HCO3 25 (22-26) mmol/L VBG O2 Saturation 66.0 % VBG Base Excess 1.5 mmol/L Sodium 134 L (135-145) mmol/L Potassium 4.7 (3.3-5.1) mmol/L Chloride 97 (96-108) mmol/L Carbon Dioxide 20 L (22-29) mmol/L Anion Gap 22 H (12-20) BUN 36 H (9-16) mg/dL Creatinine 2.09 H (0.5-1.4) mg/dL Estim Creat Clear Calc 19.6 Estimated GFR 23 POC Glucose 430 H* (60-115) mg/dL Random Glucose 416 H* (60-115) mg/dL Calcium 10.7 H D (8.4-10.2) mg/dL Magnesium 1.6 (1.6-2.6) mg/dL Total Bilirubin 0.6 (0.0-1.0) mg/dL AST 29 (5-31) U/L ALT 23 (0-31) U/L Alkaline Phosphatase 120 H (39-117) U/L Total Creatine Kinase 95 (26-140) U/L Troponin I High Sens 9.9 (<3.5-17.0) ng/L B-Natriuretic Peptide 56 (<100) pg/mL Total Protein 7.9 (6.5-8.0) g/dL Albumin 4.0 (3.5-5.0) g/dL Lipase 16 (8-78) U/L Beta-Hydroxybutyrate 0.27 (0.02-0.27) mmol/L Independent Interpretation I performed an independent interpretation of an: CT Scan Radiology Impression Discussion of test interpretation with radiology: I have reviewed the radiologist's reading. External Record Review External record reviewed: Inpatient record, Office record, Outpatient record, Prior outpatient labs, Prior outpatient radiology, Primary care record and Outside ED record Chronic Conditions Patient?s care impacted by: Other Critical Care Time Critical Care Time Critical Care Time: Yes Total Critical Care Time: 35 Attestation: I attest to this time spent taking care of the patient, obtaining history, physical, reviewing labs, imaging, treatment of patients condition +/- specialist/hospitalist consult Discharge Plan Discharge Clinical Impression: Acute hyperglycemia, Fall, Abdominal pain Patient Disposition: Still a Patient Prescriptions: No Action calcium carbonate 600 mg calcium (1,500 mg) tablet 600 mg PO BID Qty: 180 3RF cholecalciferol (vitamin D3) [Vitamin D3] 50 mcg (2,000 unit) capsule 50 mcg PO QAM Qty: 30 5RF glipizide 10 mg tablet 10 mg PO QAM Qty: 90 1RF loratadine 10 mg tablet 1 tab PO DAILY PRN (Reason: Allergic Symptoms) polyethylene glycol 3350 17 gram Powder In Packet 17 g PO DAILY Qty: 30 0RF aspirin [Adult Low Dose Aspirin] 81 mg tablet,delayed release (DR/EC) 81 mg PO BEDTIME hydralazine 25 mg tablet 25 mg PO BID metformin 1,000 mg tablet 1,000 mg PO BID Lantus Solostar U-100 Insulin 100 unit/mL (3 mL) insulin pen 14 unit subcut BEDTIME furosemide 40 mg tablet 40 mg PO DAILY atorvastatin 80 mg tablet 80 mg PO BEDTIME Trulicity 0.75 mg/0.5 mL pen injector 0.75 mg subcut QWEEK Rx Instructions: PT TAKES EVERY TUESDAY valsartan 160 mg tablet 160 mg PO DAILY (DME) lancets [TRUEplus Lancets] 33 gauge misc See Rx Instructions topical TID Qty: 100 Rx Instructions: As directed (DME) OneTouch Ultra Test Strip See Rx Instructions .ROUTE TID Qty: 10 Rx Instructions: As directed (DME) pen needle, diabetic [UltiCare Pen Needle] 31 gauge x 5/16 needle See Rx Instructions subcut DAILY Qty: 1200 Rx Instructions: As directed sennosides [senna] 8.6 mg tablet 8.6 mg PO BID Referrals: Musa Naranjo MD [Physician] - Louie Narayanan MD [Primary Care Provider] - Print Language: Cambodian
[2024-08-05] MEDS: 0.9 % Sodium Chloride 1,000 ML 999 ML IV (14:37)
[2024-08-05 14:40] LABS: MANUAL DIFF FLAG NO
[2024-08-05 14:42] LABS: Basophils Absolute Auto 0.1 X10*3/uL (0.0-0.2); Basophils Percent Auto 0.4 % (0-2); Hematocrit 45.7 % (37.0-47.0); Hemoglobin 15.5 g/dl (12.0-16.0); Imm Gran Abs Auto 0.06 X10*3/uL (0.00-0.03); Imm Gran Pct Auto 0.4 % (0.0-0.4); Lymphocytes Absolute Auto 1.5 X10*3/uL (1.2-4.9); Lymphocytes Percent Auto 10.6 % (20-40); Mean Corpuscular HGB Conc 33.9 g/dl (31.0-35.0); Mean Corpuscular Hemoglobin 30.3 pg (27.0-33.0); Mean Corpuscular Volume 89.4 fL (80.0-98.0); Mean Platelet Volume 9.7 fL (9.4-12.3); Monocytes Absolute Auto 0.7 X10*3/uL (0.1-1.2); Monocytes Percent Auto 4.7 % (2-11); Neutrophils Absolute Auto 11.9 x10*3/uL (2.0-8.3); Neutrophils Percent Auto 83.9 % (45-73); Platelet Count 349 X10*3/uL (160-400); Red Blood Count 5.11 X10*6/uL (4.20-5.50); Red Cell Distribution Width 13.3 % (11.0-16.0); White Blood Count 14.2 X10*3/uL (4.8-10.8)
[2024-08-05 14:45] LABS: VBG Base Excess 1.5 mmol/L; VBG HCO3 25 mmol/L (22-26); VBG pCO2 39 mmHg; VBG pH 7.42 (7.32-7.43); VBG pO2 39 mmHg
[2024-08-05 14:45] LABS: Venous Blood Gas Refer to POC result
[2024-08-05 15:01] LABS: B Type Natriuretic Peptide 56 pg/mL (<100)
[2024-08-05 15:02] LABS: Troponin-I High Sensitivity 9.9 ng/L (<3.5-17.0)
[2024-08-05 15:26] LABS: Alanine Aminotransferase 23 U/L (0-31); Alkaline Phosphatase 120 U/L (39-117); Anion Gap 22 (12-20); Aspartate Amino Transferase 29 U/L (5-31); Beta-Hydroxybutyrate 0.27 mmol/L (0.02-0.27); Bilirubin Total 0.6 mg/dL (0.0-1.0); Blood Urea Nitrogen 36 mg/dL (9-16); Calcium 10.7 mg/dL (8.4-10.2); Carbon Dioxide 20 mmol/L (22-29); Chloride 97 mmol/L (96-108); Creatinine Clr Calc Pharmacy 19.6; Estimated Glomerular Filt Rate 23; Glucose Random 416 mg/dL (60-115); Lipase 16 U/L (8-78); Magnesium 1.6 mg/dL (1.6-2.6); Potassium 4.7 mmol/L (3.3-5.1); Sodium 134 mmol/L (135-145); Total Protein 7.9 g/dL (6.5-8.0)
--- NOTE | 2024-08-05 15:33 | ECG_ITS ---
Test Reason : falls Blood Pressure : / mmHG Vent. Rate : 092 BPM Atrial Rate : 092 BPM P-R Int : 156 ms QRS Dur : 078 ms QT Int : 362 ms P-R-T Axes : 062 -01 021 degrees QTc Int : 447 ms Normal sinus rhythm Nonspecific T wave abnormality Abnormal ECG When compared with ECG of 02-APR-2022 08:23, No significant change was found Referred By: Segundo Crum Electronically Signed By:BRANDON HUTSON
[2024-08-05] MEDS: cefTRIAXone sodium 1 GM VIAL IVPUSH (15:50)
[2024-08-05 16:05] LABS: INTERNATIONAL NORM RATIO 1.2 (0.9-1.1); Prothrombin Time 13.8 SEC (10.9-12.4)
[2024-08-05 16:19] LABS: Lactic Acid 3.3 mmol/L (0.5-2.0)
[2024-08-05] MEDS: Insulin Regular, Human 100 UNIT/ML 10 ML VIAL IVPUSH (16:19)
[2024-08-05] MEDS: 0.9 % Sodium Chloride 2,041.17 ML 2041.17 ML IV (16:21)
[2024-08-05 16:31] LABS: COVID-19 Test Negative (Negative); IDNOW Serial# 55D5AD1C
[2024-08-05 17:56] LABS: Reflex Lactate? Lactic Acid Added
[2024-08-05 18:17] LABS: Appearance Urine Clear; Color Urine Yellow; Glucose Urine UA >=1000 mg/dL (Negative); Leukocyte Esterase Urine Negative (Negative); Nitrite Urine Negative (Negative); UMIC TRIGGER UACC YES; Urine Blood Negative (Negative); Urine Ketones Negative (Negative); Urine Protein Negative (Neg-Trace)
[2024-08-05 18:21] LABS: Glucose, Whole Blood 238 mg/dL (60-115)
[2024-08-05] MEDS: Azithromycin 500 MG in 0.9 % Sodium Chloride 250 ML 125 MG IV (18:30)
--- NOTE | 2024-08-05 18:32 | P.HPHOSP_ITS ---
History of Present Illness Date of Service: 08/05/24 Attending physician on admission: Armando Leyva Chief Complaint: Fall at home, abd pain Pt is an 83-year-old female with a PMH significant for?HTN, HLD, insulin- dependent type 2 diabetes, nephrolithiasis s/p lithotripsy, osteoporosis, and CKD 3 who presents to the ED with?multiple complaints, including lightheadedness and dizziness, fall at home, and RUQ abdominal pain radiating to chest x4 days. Patient has also been experiencing increased shortness a breath, mostly nonproductive cough, and subjective fever and chills. Also reports nausea and vomiting that she is primarily experienced since being in the ED. patient states her fall at home occurred when she stood up from sitting on her couch and she felt lightheaded and dizzy, and fell back on the couch in a seated position. Denies LOC or head strike. In the ED pt was tachycardic up to 103 and mildly hypertensive at 154/75. Labs were significant for leukocytosis 14.2, sodium 134, BUN 36, creatinine 2.09 (baseline 0.90), and POC 430. UA negative for UTI. CT of abdomen found distal right ureteral stone of up to 0.5 cm with minimal right hydroureter and hydronephrosis and adjacent fat stranding. CTA of chest with left lingula and left lower lobe focal opacities possibly representing atelectasis versus early pneumonia. CT?of head negative for acute intracranial pathology. CT of cervical spine negative for acute abnormality. EKG demonstrated normal sinus rhythm without evidence of significant ST elevations or depressions. Pt was treated with IVF, insulin IV, ceftriaxone, and azithromycin. Pt will be admitted to the hospital for treatment and further evaluation of KRISTEN in the setting of right ureteral obstruction. Review of Systems 2 Review of Systems: Negative except for that which is stated in the [facility] Medical History Hydronephrosis of right kidney Hypertension Diabetes mellitus Gram-negative bacteremia Septic shock UTI (urinary tract infection) Calculus of kidney Osteoporosis Family History Father Heart problem Mother No problems noted. 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 Meds Allergies Allergy/AdvReac Type Severity Reaction Status Date / Time Sulfa (Sulfonamide Allergy Intermediate RASH/ITCH Verified 08/05/24 14:00 Antibiotics) sulfamethoxazole Allergy Intermediate HIVES Verified 08/05/24 14:00 [From BACTRIM] trimethoprim [From BACTRIM] Allergy Intermediate HIVES Verified 08/05/24 14:00 oxycodone [From Percocet] Allergy Unknown Unknown Verified 08/05/24 14:00 penicillin V Allergy Unknown Unknown Verified 08/05/24 14:00 Active Medications: Current Medications Azithromycin 500 mg/ Sodium (Chloride) 250 mls @ 125 mls/hr IV ONCE ONE Stop: 08/05/24 20:06 Last Admin: 08/05/24 18:30 Dose: 125 mls/hr Home Medications ?Medication ?Instructions ?Recorded ?Confirmed ?Last Taken ?Type aspirin 81 mg tablet,delayed 81 mg PO BEDTIME 12/26/20 08/05/24 04/01/22 History release (Adult Low Dose Aspirin) insulin glargine 100 unit/mL (3 14 unit subcut BEDTIME 12/26/20 08/05/24 04/01/22 History mL) subcutaneous pen (Lantus Solostar U-100 Insulin) metformin 1,000 mg tablet 1,000 mg PO BID 12/26/20 08/05/24 08/05/24 09:00 History atorvastatin 80 mg tablet 80 mg PO BEDTIME 12/23/21 08/05/24 04/01/22 History blood sugar diagnostic (OneTouch #10 ea 12/23/21 08/05/24 08/05/24 09:00 History Ultra Test strips) furosemide 40 mg tablet 40 mg PO BID 12/23/21 08/05/24 08/05/24 09:00 History lancets 33 gauge (TRUEplus Lancets) #100 ea 12/23/21 08/05/24 08/05/24 09:00 History pen needle, diabetic 31 gauge x #1,200 ea 12/23/21 08/05/24 08/05/24 09:00 History 5/16 (UltiCare Pen Needle) amlodipine 5 mg tablet 5 mg PO BEDTIME 08/05/24 08/05/24 Unknown History cholecalciferol (vitamin D3) 50 50 mcg PO DAILY 08/05/24 08/05/24 08/05/24 09:00 History mcg (2,000 unit) capsule (Vitamin D3) dulaglutide 4.5 mg/0.5 mL 4.5 mg subcut MO@0900 08/05/24 08/05/24 Unknown History subcutaneous pen injector (Trulicity) glipizide 10 mg tablet 10 mg PO DAILY 08/05/24 08/05/24 08/05/24 09:00 History hydralazine 50 mg tablet 50 mg PO BIDWM 08/05/24 08/05/24 08/05/24 09:00 History valsartan 320 mg tablet 320 mg PO DAILY 08/05/24 08/05/24 08/05/24 09:00 History Physical Exam 2 Vital Signs and Narrative: Vital Signs: Last Vital Signs Temp 98.4 F 08/05/24 16:28 Pulse 95 08/05/24 18:00 Resp 17 08/05/24 18:00 BP 154/75 H 08/05/24 18:00 Pulse Ox 97 08/05/24 18:00 O2 Del Method Room Air 08/05/24 18:00 BMI result Body Mass Index 25.7 General: AOx3, no acute distress Resp: CTA bilaterally CVS: S1, S2, RRR GI: +BS, no distention, with RUQ and LUQ tenderness Skin: Warm, dry Neuro: Cranial nerves II-XII grossly intact bilaterally. Motor grossly intact bilaterally Extremities: No edema Psych: Appropriate affect Results Labs 08/05/24 14:35 08/05/24 14:35 Labs: Laboratory Results - last 24 hr 08/05/24 08/05/24 08/05/24 13:51 14:35 14:40 MCV 89.4 MCH 30.3 MCHC 33.9 RDW 13.3 Plt Count 349 D MPV 9.7 Immature Gran % (Auto) 0.4 Neut % (Auto) 83.9 H Lymph % (Auto) 10.6 L [place] % (Auto) 4.7 Eos % (Auto) 0.0 Baso % (Auto) 0.4 Lymph # (Auto) 1.5 [place] # (Auto) 0.7 Eos # (Auto) 0.0 Baso # (Auto) 0.1 Abs Immat Gran (auto) 0.06 H Absolute Neuts (auto) 11.9 H Absolute Nucleated RBC 0.000 Nucleated RBC % (auto) 0.0 PT INR VBG pH 7.42 VBG pCO2 39 VBG pO2 39 VBG HCO3 25 VBG O2 Saturation 66.0 VBG Base Excess 1.5 Anion Gap 22 H Estim Creat Clear Calc 19.6 Estimated GFR 23 POC Glucose 430 H* Random Glucose 416 H* Lactic Acid Calcium 10.7 H D Magnesium 1.6 Total Bilirubin 0.6 AST 29 ALT 23 Alkaline Phosphatase 120 H Total Creatine Kinase 95 Troponin I High Sens 9.9 B-Natriuretic Peptide 56 Total Protein 7.9 Albumin 4.0 Lipase 16 Beta-Hydroxybutyrate 0.27 Urine Color Urine Appearance Urine pH Ur Specific [place] Urine Protein Urine Glucose (UA) Urine Ketones Urine Blood Urine Nitrite Ur Leukocyte Esterase COVID-19 ([facility]) COVID-19 Clin Com 08/05/24 08/05/24 08/05/24 15:48 18:06 18:18 MCV MCH MCHC RDW Plt Count MPV Immature Gran % (Auto) Neut % (Auto) Lymph % (Auto) [place] % (Auto) Eos % (Auto) Baso % (Auto) Lymph # (Auto) [place] # (Auto) Eos # (Auto) Baso # (Auto) Abs Immat Gran (auto) Absolute Neuts (auto) Absolute Nucleated RBC Nucleated RBC % (auto) PT 13.8 H INR 1.2 H VBG pH VBG pCO2 VBG pO2 VBG HCO3 VBG O2 Saturation VBG Base Excess Anion Gap Estim Creat Clear Calc Estimated GFR POC Glucose 238 H Random Glucose Lactic Acid 3.3 H* Calcium Magnesium Total Bilirubin AST ALT Alkaline Phosphatase Total Creatine Kinase Troponin I High Sens B-Natriuretic Peptide Total Protein Albumin Lipase Beta-Hydroxybutyrate Urine Color Yellow Urine Appearance Clear Urine pH 5.0 Ur Specific [place] 1.010 Urine Protein Negative Urine Glucose (UA) >=1000 H Urine Ketones Negative Urine Blood Negative Urine Nitrite Negative Ur Leukocyte Esterase Negative COVID-19 ([facility]) Negative COVID-19 Clin Com See Note Imaging Radiologist's Impressions: Impressions Abdomen/Pelvis CT 08/05/24 13:46 IMPRESSION: 1. Bilateral dependent atelectasis with more focal opacities in the left lingula and left lower lobe, which could represent atelectasis versus early pneumonia. No pleural effusion or pneumothorax. 2. Distal right ureteral stone at the level of the pelvic outlet measuring up to 0.5 cm. Minimal right hydroureter and hydronephrosis with minimal adjacent fat stranding. Tiny nonobstructing bilateral renal stones. No left-sided hydronephrosis or hydroureter. 3. Diverticulosis without evidence of acute diverticulitis. No small or large bowel obstruction. Appendix not seen. No right lower quadrant inflammatory change to suggest acute diverticulitis. 4. No acute fracture or dislocation. Electronically signed by: Simba Turner MD 08/05/2024 05:08 PM EST RP Cervical Spine CT 08/05/24 13:46 IMPRESSION: 1. Cervical spondylosis of the cervical spine. 2. No acute abnormality. Fleischner guidelines were followed. Electronically signed by: Brenden Goldsmith MD 08/05/2024 04:51 PM EST RP Chest CT 08/05/24 13:46 IMPRESSION: 1. Bilateral dependent atelectasis with more focal opacities in the left lingula and left lower lobe, which could represent atelectasis versus early pneumonia. No pleural effusion or pneumothorax. 2. Distal right ureteral stone at the level of the pelvic outlet measuring up to 0.5 cm. Minimal right hydroureter and hydronephrosis with minimal adjacent fat stranding. Tiny nonobstructing bilateral renal stones. No left-sided hydronephrosis or hydroureter. 3. Diverticulosis without evidence of acute diverticulitis. No small or large bowel obstruction. Appendix not seen. No right lower quadrant inflammatory change to suggest acute diverticulitis. 4. No acute fracture or dislocation. Electronically signed by: Simba Turner MD 08/05/2024 05:08 PM EST RP Head CT 08/05/24 16:07 IMPRESSION: No acute intracranial pathology. Electronically signed by: Brenden Goldsmith MD 08/05/2024 04:47 PM EST Assessment and Plan (1) Calculus of proximal right ureter: Status: Acute Plan Pt is an 83-year-old female with a PMH significant for?HTN, HLD, insulin- dependent type 2 diabetes, nephrolithiasis s/p lithotripsy, osteoporosis, and CKD 3 who presents to the ED with?multiple complaints, including lightheadedness and dizziness, fall at home, and RUQ abdominal pain radiating to chest x4 days. Pt will be admitted to the hospital for treatment and further evaluation of KRISTEN in the setting of right ureteral obstruction. KRISTEN in the setting of right ureteral obstruction Pt with RUQ abd pain x4 days, N/V today CT showing distal right ureteral stone of 0.5 cm with minimal right hydroureter and hydronephrosis and adjacent fat stranding Previous history of nephrolithiasis status post lithotripsy Creatinine 2.09, elevated baseline of 0.90 Treat with analgesics, antiemetics, IVF Urology consult NPO past midnight for possible stenting tomorrow Follow renal function Question of pneumonia CT of chest found focal opacities in left lingula and left lower lobe, ?atelectasis vs early pneumonia Pt reports some SOB, cough, subjective F/C Would meet SIRS criteria with leukocytosis and tachycardia; lactic acid 0.3 with repeat 3.4 Pt given IVF and started on broad spectrum antibiotics in the ED Will treat with ceftriaxone and azithromycin, started 08/05/2024 Fall at home Pt with lightheadedness, dizziness, and weakness, fell back on couch after trying to stand Likely in the setting of above Will check orthostatics PT consult Lactic acidosis Initial lactic acid 3.3 with repeat 3.4 Likely secondary to metformin use, not sepsis Patient received IVF Hold metformin Recheck lactic acid HTN Continue amlodipine, hydralazine Hold valsartan due to KRISTEN Insulin dependent type 2 diabetes with hyperglycemia Poorly controlled, POC 430 at time of presentation Continue glipizide Hold Trulicity, metformin Place on sliding scale insulin Lantus Check A1c CAD/HLD Continue statin Hold aspirin due to possible surgical procedure Full Code Attending:?Dr. Parada DVT Prophylaxis: Pneumatic compression due to possible surgical procedure in the morning Pt will require a hospitalization of at least two nights for treatment of?KRISTEN in setting of right ureteral lithiasis concerning for ureteral obstruction. Patient require administration of IVF, IV analgesics, IV antiemetics, and specialist consultation with Urology for likely surgical procedure. Quality Stroke Does the patient have a stroke diagnosis?: No VTE Prior VTE?: No VTE Risk Level:: Medical - moderate - high VTE Device Contraindication: N/A - Device Ordered VTE Drug Contraindication: Treatment Not Indicated
[2024-08-05 18:34] LABS: Bacteria Urine Trace (None Seen); RBC Urine 0-2 /HPF (0-2); Squamous Epithelial Cell Urine 0-2 /HPF (0-2); WBC Urine 0-5 /HPF (0-5)
--- NOTE | 2024-08-05 18:37 | PHA.MEDREC ---
Addendum entered by Tyson Rodriguez RP 08/05/24 18:52: MED REC CHECKED BY [facility] Original Note: Pharmacy Consult ? Medication Reconciliation Pharmacy has completed the medication reconciliation. Utilized construction or leak gang laborer services. Spoke to pt to confirm meds.
[2024-08-05 18:42] LABS: ~Lactic Acid-LAB USE ONLY 3.4 mmol/L (0.5-2.0)
[2024-08-05 20:11] LABS: Reflex Lactate? 2 Y
[2024-08-05] MEDS: Insulin Lispro 100 UNIT/ML 3 ML VIAL SUBCUT (20:36)
[2024-08-05] MEDS: Insulin Glargine,Hum.rec.anlog 100 UNIT/ML 10 ML VIAL 10 UNIT SUBCUT (20:36)
[2024-08-05] MEDS: amLODIPine Besylate 5 MG TABLET PO (20:37)
[2024-08-05] MEDS: Atorvastatin Calcium 80 MG TABLET PO (20:39)
[2024-08-05] MEDS: Calcium Oyster Shell Elemental 500 MG TABLET PO (20:39)
[2024-08-05 20:41] LABS: Glucose, Whole Blood 258 mg/dL (60-115)
[2024-08-05] MEDS: 0.9 % Sodium Chloride 1,000 ML 100 ML IVCONT (20:42)
[2024-08-05] MEDS: ondansetron HCL 4 MG/2 ML VIAL IVPUSH (21:04)
[2024-08-05] MEDS: Morphine Sulfate 2 MG/ML CARTRIDGE IVPUSH (21:09)
[2024-08-05 21:24] LABS: ~Lactic Acid-LAB USE ONLY 2.6 mmol/L (0.5-2.0)
[2024-08-05 21:30] LABS: Cancel Lactic Acid Canceled
[2024-08-06] VITALS (13 sets, daily range): BP systolic 103–138; BP diastolic 52–65; PULSE 63–74; RESP 16–18; TEMP 36–36.7; O2SAT 93–99
--- NOTE | 2024-08-06 02:33 | PC.NURSE ---
pt sat dropped while sleeping to 87% on room air, 2l applied sat 97%. no ss of distress. pt easy to arrouse.
[2024-08-06 05:13] LABS: Estimated Average Glucose 309 mg/dL; Hemoglobin A1C 435.7871 umol/L; Hemoglobin A1c % 12.4 % (<6.0); Total Hemoglobin (HGBA1C) 3894.4023 umol/L
[2024-08-06 05:31] LABS: Anion Gap 11 (12-20); Blood Urea Nitrogen 31 mg/dL (9-16); Calcium 9.1 mg/dL (8.4-10.2); Carbon Dioxide 27 mmol/L (22-29); Chloride 106 mmol/L (96-108); Creatinine Clr Calc Pharmacy 32.8; Estimated Glomerular Filt Rate 41; Glucose Random 153 mg/dL (60-115); Potassium 3.5 mmol/L (3.3-5.1); Sodium 140 mmol/L (135-145)
[2024-08-06] MEDS: 0.9 % Sodium Chloride 1,000 ML 100 ML IVCONT ×2 (06:35→19:37)
[2024-08-06 07:46] LABS: Glucose, Whole Blood 156 mg/dL (60-115)
--- NOTE | 2024-08-06 08:12 | PC.NURSE ---
Pt has been sleeping since this RN arrival at 7am. Staff are aware that she is NPO.
--- NOTE | 2024-08-06 08:32 | PC.NURSE ---
Per Dr Montero Pt is NPO which includes AM Med. Pt states she last took sips of water last night. IV fluids running. Has mild upper abd pain. no nausea/vomiting at this time.
[2024-08-06] MEDS: ondansetron HCL 4 MG/2 ML VIAL IVPUSH (08:44)
[2024-08-06] MEDS: Magnesium Sulfate/D5W 1 GM/100 ML PIGGYBACK IV (08:45)
[2024-08-06] MEDS: Morphine Sulfate 2 MG/ML CARTRIDGE IVPUSH (08:45)
[2024-08-06 08:59] LABS: Magnesium 1.5 mg/dL (1.6-2.6)
[2024-08-06 10:21] LABS: Glucose, Whole Blood 172 mg/dL (60-115)
--- NOTE | 2024-08-06 12:49 | MHC.CM.PN ---
PT HAS REQUESTED BOTH KAUSHAL AND NEREYDA BE REMOVED FROM HER CONTACT LIST MARQUEZ WILL REMAIN LISTED HER EMERGENCY CONTACT AND HER DAUGHTER, MAGGIE SEWELL [phone] WILL BE ADDED HER PRIMARY CONTACT TASK SENT TO REGISTRATION FOR CHANGES TO BE MADE
--- NOTE | 2024-08-06 13:22 | MHC.CM.PN ---
pt lines alone is independent has no servies dc plan home no servies pt has own ride home
--- NOTE | 2024-08-06 13:29 | MHC.CM.PN ---
[facility] transfer coordinated by internet specialist/roland mari is aware that dr sampson wants pt to have an outpt cornorary cat scan while pt is in [facility] ..it was unclear whether or not delaney horton that ,,roland asked to speak w/dr edwards re same
--- NOTE | 2024-08-06 13:38 | HO.PM.IMPN ---
Subjective Subjective Date of Service: 08/06/24 Interval History: renal stone ,? pneumonia Review of Systems pain somewhat imporivng denies any cough Physical Exam Vital Signs: Vital Signs: Last Vital Signs Temp 97.6 F 08/06/24 10:14 Pulse 66 08/06/24 10:14 Resp 16 08/06/24 10:14 BP 131/64 08/06/24 10:14 Pulse Ox 99 08/06/24 10:14 O2 Del Method Room Air 08/06/24 10:14 O2 Flow Rate 2 08/06/24 06:00 BMI result Body Mass Index 25.7 Appearance: Alert.? Oriented X3.? cvs: rrr, [id number] . res: air entry fair but somewhat diminshed at bases. abd: no rebound or guarding ,nt, bs present. ext pulses present , no cyanosis . neuro: axo3 , nonfocal. Objective Data Active Medications Acetaminophen (Acetaminophen 325 Mg Tablet) 650 mg PO Q6H PRN PRN Reason: Pain, Mild (Pain Scale 1-3), fever or headache Amlodipine Besylate (Amlodipine Besylate 5 Mg Tablet) 5 mg PO BEDTIME [facility]; Protocol Last Admin: 08/05/24 20:37 Dose: 5 mg Documented By: SAVANNAH Atorvastatin Calcium (Atorvastatin Calcium 80 Mg Tablet) 80 mg PO BEDTIME [facility] Last Admin: 08/05/24 20:39 Dose: 80 mg Documented By: SAVANNAH Calcium Carbonate (Calcium Carbonate 750 Mg Tab.Chew) 750 mg PO Q4H PRN PRN Reason: Heartburn Calcium Carbonate (Calcium Oyster Shell Elemental 500 Mg Tablet) 500 mg PO BID [facility] Last Admin: 08/06/24 09:04 Dose: Not Given Documented By: MAC Non-Admin Reason: NPO Glucose (Glucose Gel 15 Gm Gel..Gram.) 15 gm PO Q15M PRN; Protocol PRN Reason: per Hypoglycemia Standing Ord. Hydralazine HCl (Hydralazine Hcl 50 Mg Tablet) 50 mg PO BIDWM [facility]; Protocol Last Admin: 08/06/24 08:31 Dose: Not Given Documented By: MAC Non-Admin Reason: NPO Dextrose (D10) 250 mls @ 750 mls/hr IV Q15M PRN; Protocol PRN Reason: per Hypoglycemia Standing Ord. Sodium Chloride (Ns) 1,000 mls @ 100 mls/hr IVCONT .Q10H [facility] Last Admin: 08/06/24 06:35 Dose: 100 mls/hr Documented By: RANJIT Insulin Glargine (Insulin Glargine,Hum.Rec.Anlog 100 Unit/Ml 10 Ml Vial) 10 unit SUBCUT BEDTIME [facility] Last Admin: 08/05/24 20:36 Dose: 10 unit Documented By: SAVANNAH Insulin Human Lispro (Insulin Lispro 100 Unit/Ml 3 Ml Vial) 0 unit SUBCUT QIDACHS [facility]; Protocol Last Admin: 08/06/24 10:46 Dose: Not Given Documented By: DAMASO Non-Admin Reason: Physician Held Med Magnesium Hydroxide (Milk Of Magnesia 30 Ml Oral.Susp) 30 ml PO DAILY PRN PRN Reason: Constipation Melatonin (Melatonin 3 Mg Tablet) 6 mg PO BEDTIME PRN PRN Reason: Insomnia Morphine Sulfate (Morphine Sulfate 2 Mg/Ml Cartridge) 2 mg IVPUSH Q4H PRN; Protocol PRN Reason: Pain, Severe (Pain Scale 7-10) Last Admin: 08/06/24 08:45 Dose: 2 mg Documented By: MAC Ondansetron HCl (Ondansetron Hcl 4 Mg/2 Ml Vial) 4 mg IVPUSH Q8H PRN PRN Reason: Nausea and Vomiting Last Admin: 08/06/24 08:44 Dose: 4 mg Documented By: MAC Sodium Chloride (0.9 % Sodium Chloride Flush 3 Ml Syringe) 3 ml IVFLUSH QSHIFT [facility] Last Admin: 08/06/24 08:31 Dose: Not Given Documented By: MAC Non-Admin Reason: Med Not Available Vitamin D (Cholecalciferol (Vitamin D3) 25 Mcg Tablet) 50 mcg PO DAILY [facility] Last Admin: 08/06/24 09:04 Dose: Not Given Documented By: MAC Non-Admin Reason: NPO Labs 08/05/24 14:35 08/06/24 05:04 Labs: Laboratory Results - last 24 hr 08/05/24 08/05/24 08/05/24 13:51 14:35 14:40 MCV 89.4 MCH 30.3 MCHC 33.9 RDW 13.3 Plt Count 349 D MPV 9.7 Immature Gran % (Auto) 0.4 Neut % (Auto) 83.9 H Lymph % (Auto) 10.6 L [place] % (Auto) 4.7 Eos % (Auto) 0.0 Baso % (Auto) 0.4 Lymph # (Auto) 1.5 [place] # (Auto) 0.7 Eos # (Auto) 0.0 Baso # (Auto) 0.1 Abs Immat Gran (auto) 0.06 H Absolute Neuts (auto) 11.9 H Absolute Nucleated RBC 0.000 Nucleated RBC % (auto) 0.0 Hold Purple Top PT INR VBG pH 7.42 VBG pCO2 39 VBG pO2 39 VBG HCO3 25 VBG O2 Saturation 66.0 VBG Base Excess 1.5 Anion Gap 22 H Estim Creat Clear Calc 19.6 Estimated GFR 23 POC Glucose 430 H* Random Glucose 416 H* Estimat Average Glucose 309 Hemoglobin A1c % 12.4 H Lactic Acid Lactic Acid F/U @ 2Hr Lactic Acid F/U @ 4Hr Calcium 10.7 H D Magnesium 1.6 Total Bilirubin 0.6 AST 29 ALT 23 Alkaline Phosphatase 120 H Total Creatine Kinase 95 Troponin I High Sens 9.9 B-Natriuretic Peptide 56 Total Protein 7.9 Albumin 4.0 Lipase 16 Beta-Hydroxybutyrate 0.27 Hold Yellow Top Urine Color Urine Appearance Urine pH Ur Specific [place] Urine Protein Urine Glucose (UA) Urine Ketones Urine Blood Urine Nitrite Ur Leukocyte Esterase Urine RBC Urine WBC Ur Squamous Epith Cells Urine Bacteria Hyaline Casts COVID-19 ([facility]) COVID-19 Clin Com 08/05/24 08/05/24 08/05/24 15:48 18:05 18:06 MCV MCH MCHC RDW Plt Count MPV Immature Gran % (Auto) Neut % (Auto) Lymph % (Auto) [place] % (Auto) Eos % (Auto) Baso % (Auto) Lymph # (Auto) [place] # (Auto) Eos # (Auto) Baso # (Auto) Abs Immat Gran (auto) Absolute Neuts (auto) Absolute Nucleated RBC Nucleated RBC % (auto) Hold Purple Top PT 13.8 H INR 1.2 H VBG pH VBG pCO2 VBG pO2 VBG HCO3 VBG O2 Saturation VBG Base Excess Anion Gap Estim Creat Clear Calc Estimated GFR POC Glucose Random Glucose Estimat Average Glucose Hemoglobin A1c % Lactic Acid 3.3 H* Lactic Acid F/U @ 2Hr 3.4 H* Lactic Acid F/U @ 4Hr Calcium Magnesium Total Bilirubin AST ALT Alkaline Phosphatase Total Creatine Kinase Troponin I High Sens B-Natriuretic Peptide Total Protein Albumin Lipase Beta-Hydroxybutyrate Hold Yellow Top Urine Color Yellow Urine Appearance Clear Urine pH 5.0 Ur Specific [place] 1.010 Urine Protein Negative Urine Glucose (UA) >=1000 H Urine Ketones Negative Urine Blood Negative Urine Nitrite Negative Ur Leukocyte Esterase Negative Urine RBC 0-2 Urine WBC 0-5 Ur Squamous Epith Cells 0-2 Urine Bacteria Trace Hyaline Casts 11-20 COVID-19 ([facility]) Negative COVID-19 Clin Com See Note 08/05/24 08/05/24 08/05/24 18:18 20:24 20:53 MCV MCH MCHC RDW Plt Count MPV Immature Gran % (Auto) Neut % (Auto) Lymph % (Auto) [place] % (Auto) Eos % (Auto) Baso % (Auto) Lymph # (Auto) [place] # (Auto) Eos # (Auto) Baso # (Auto) Abs Immat Gran (auto) Absolute Neuts (auto) Absolute Nucleated RBC Nucleated RBC % (auto) Hold Purple Top SEE NOTE PT INR VBG pH VBG pCO2 VBG pO2 VBG HCO3 VBG O2 Saturation VBG Base Excess Anion Gap Estim Creat Clear Calc Estimated GFR POC Glucose 238 H 258 H Random Glucose Estimat Average Glucose Hemoglobin A1c % Lactic Acid Lactic Acid F/U @ 2Hr Lactic Acid F/U @ 4Hr 2.6 H* Calcium Magnesium Total Bilirubin AST ALT Alkaline Phosphatase Total Creatine Kinase Troponin I High Sens B-Natriuretic Peptide Total Protein Albumin Lipase Beta-Hydroxybutyrate Hold Yellow Top See Note Urine Color Urine Appearance Urine pH Ur Specific [place] Urine Protein Urine Glucose (UA) Urine Ketones Urine Blood Urine Nitrite Ur Leukocyte Esterase Urine RBC Urine WBC Ur Squamous Epith Cells Urine Bacteria Hyaline Casts COVID-19 ([facility]) COVID-19 Clin Com 08/06/24 08/06/24 08/06/24 05:04 07:42 10:13 MCV MCH MCHC RDW Plt Count MPV Immature Gran % (Auto) Neut % (Auto) Lymph % (Auto) [place] % (Auto) Eos % (Auto) Baso % (Auto) Lymph # (Auto) [place] # (Auto) Eos # (Auto) Baso # (Auto) Abs Immat Gran (auto) Absolute Neuts (auto) Absolute Nucleated RBC Nucleated RBC % (auto) Hold Purple Top PT INR VBG pH VBG pCO2 VBG pO2 VBG HCO3 VBG O2 Saturation VBG Base Excess Anion Gap 11 L Estim Creat Clear Calc 32.8 Estimated GFR 41 POC Glucose 156 H 172 H Random Glucose 153 H Estimat Average Glucose Hemoglobin A1c % Lactic Acid Lactic Acid F/U @ 2Hr Lactic Acid F/U @ 4Hr Calcium 9.1 D Magnesium 1.5 L Total Bilirubin AST ALT Alkaline Phosphatase Total Creatine Kinase Troponin I High Sens B-Natriuretic Peptide Total Protein Albumin Lipase Beta-Hydroxybutyrate Hold Yellow Top Urine Color Urine Appearance Urine pH Ur Specific [place] Urine Protein Urine Glucose (UA) Urine Ketones Urine Blood Urine Nitrite Ur Leukocyte Esterase Urine RBC Urine WBC Ur Squamous Epith Cells Urine Bacteria Hyaline Casts COVID-19 ([facility]) COVID-19 Clin Com Assessment and Plan (1) Pneumonia: Status: Acute (2) KRISTEN (acute kidney injury): Status: Acute Plan 83-year-old female with a PMH significant for?HTN, HLD, insulin-dependent type 2 diabetes, nephrolithiasis s/p lithotripsy, osteoporosis, and CKD 3 who presents to the ED with?multiple complaints, including lightheadedness and dizziness, fall at home, and RUQ abdominal pain radiating to chest x4 days. Pt will be admitted to the hospital for treatment and further evaluation of KRISTEN in the setting of right ureteral obstruction. KRISTEN in the setting of right ureteral obstruction Pt with RUQ abd pain x4 days, N/V today CT showing distal right ureteral stone of 0.5 cm with minimal right hydroureter and hydronephrosis and adjacent fat stranding Previous history of nephrolithiasis status post lithotripsy plan kristen improving as well as her pain but still has pain NPO ,Treat with analgesics, antiemetics, IVF Urology consult, moniter renal function Question of pneumonia CT of chest found focal opacities in left lingula and left lower lobe, ?atelectasis vs early pneumonia Pt reports some SOB, cough, subjective F/C Would meet SIRS criteria with leukocytosis and tachycardia; lactic acid 0.3 with repeat 3.4 Pt given IVF and started on broad spectrum antibiotics in the ED Will treat with ceftriaxone and azithromycin, started 08/05/2024 Fall at home Pt with lightheadedness, dizziness, and weakness, fell back on couch after trying to stand Likely in the setting of above Will check orthostatics PT consult acute Lactic acidosis improving, no further checking of lactic acid unless clinically situation chnages. Likely secondary to metformin use, not sepsis Patient received IVF Hold metformin HTN Continue amlodipine, hydralazine Hold valsartan due to KRISTEN Insulin dependent type 2 diabetes with hyperglycemia Check A1c hold glipizide Hold Trulicity, metformin Place on sliding scale insulin,Lantus CAD/HLD Continue statin Hold aspirin due to possible surgical procedure Full Code DVT Prophylaxis: Pneumatic compression due to possible surgical procedure . ongoing need for hospitalization f or treatment of?KRISTEN in setting of right ureteral lithiasis concerning for ureteral obstruction. Patient require administration of IVF, IV analgesics, IV antiemetics, and specialist consultation with Urology for likely surgical procedure. 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
[2024-08-06 16:13] LABS: Glucose, Whole Blood 135 mg/dL (60-115)
--- NOTE | 2024-08-06 16:47 | PC.NURSE ---
Patient picked up for transport to pre-op. Hospital gown, non-skid socks, name band, and fall risk band in place. IV intact and patent.
--- NOTE | 2024-08-06 16:56 | HO.ANESPROP2 ---
COUNTS INCLUDE 234 BEDS AT THE [facility] Active Problems Active Problems: All Active Problems Pneumonia (Acute) Calculus of proximal right ureter (Acute) KRISTEN (acute kidney injury) (Acute) Abdominal pain (Acute) Fall (Acute) Acute hyperglycemia (Acute) Elevated C-reactive protein (CRP) (Acute) Dupuytren's disease of palm of left hand (Acute) Numbness of left hand (Acute) Numbness of right hand (Acute) Trigger finger, right middle finger (Acute) Cutaneous horn (Acute) Skin mass (Acute) Hypertension (Acute) Diabetes mellitus (Acute) Nephrolithiasis (Acute) E coli bacteremia (Acute) KRISTEN (acute kidney injury) (Acute) Constipation (Acute) Osteoporosis (Acute) Past Medical History Medical History Hydronephrosis of right kidney Hypertension Diabetes mellitus Gram-negative bacteremia Septic shock UTI (urinary tract infection) Calculus of kidney Osteoporosis Functional capacity: independent ambulation Patient : No Family History Family History Father Heart problem Mother No problems noted. 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 Meds Allergies Allergy/AdvReac Type Severity Reaction Status Date / Time Sulfa (Sulfonamide Allergy Intermediate RASH/ITCH Verified 08/05/24 14:00 Antibiotics) sulfamethoxazole Allergy Intermediate HIVES Verified 08/05/24 14:00 [From BACTRIM] trimethoprim [From BACTRIM] Allergy Intermediate HIVES Verified 08/05/24 14:00 oxycodone [From Percocet] Allergy Unknown Unknown Verified 08/05/24 14:00 penicillin V Allergy Unknown Unknown Verified 08/05/24 14:00 Active Medications: Current Medications Acetaminophen (Acetaminophen 325 Mg Tablet) 650 mg PO Q6H PRN PRN Reason: Pain, Mild (Pain Scale 1-3), fever or headache Amlodipine Besylate (Amlodipine Besylate 5 Mg Tablet) 5 mg PO BEDTIME [facility]; Protocol Last Admin: 08/05/24 20:37 Dose: 5 mg Atorvastatin Calcium (Atorvastatin Calcium 80 Mg Tablet) 80 mg PO BEDTIME [facility] Last Admin: 08/05/24 20:39 Dose: 80 mg Calcium Carbonate (Calcium Carbonate 750 Mg Tab.Chew) 750 mg PO Q4H PRN PRN Reason: Heartburn Calcium Carbonate (Calcium Oyster Shell Elemental 500 Mg Tablet) 500 mg PO BID [facility] Last Admin: 08/06/24 09:04 Dose: Not Given Glucose (Glucose Gel 15 Gm Gel..Gram.) 15 gm PO Q15M PRN; Protocol PRN Reason: per Hypoglycemia Standing Ord. Hydralazine HCl (Hydralazine Hcl 50 Mg Tablet) 50 mg PO BIDWM [facility]; Protocol Last Admin: 08/06/24 08:31 Dose: Not Given Dextrose (D10) 250 mls @ 750 mls/hr IV Q15M PRN; Protocol PRN Reason: per Hypoglycemia Standing Ord. Sodium Chloride (Ns) 1,000 mls @ 100 mls/hr IVCONT .Q10H [facility] Last Infusion: 08/06/24 16:47 Dose: Infused Insulin Glargine (Insulin Glargine,Hum.Rec.Anlog 100 Unit/Ml 10 Ml Vial) 10 unit SUBCUT BEDTIME [facility] Last Admin: 08/05/24 20:36 Dose: 10 unit Insulin Human Lispro (Insulin Lispro 100 Unit/Ml 3 Ml Vial) 0 unit SUBCUT QIDACHS [facility]; Protocol Last Admin: 08/06/24 16:18 Dose: Not Given Magnesium Hydroxide (Milk Of Magnesia 30 Ml Oral.Susp) 30 ml PO DAILY PRN PRN Reason: Constipation Melatonin (Melatonin 3 Mg Tablet) 6 mg PO BEDTIME PRN PRN Reason: Insomnia Morphine Sulfate (Morphine Sulfate 2 Mg/Ml Cartridge) 2 mg IVPUSH Q4H PRN; Protocol PRN Reason: Pain, Severe (Pain Scale 7-10) Last Admin: 08/06/24 08:45 Dose: 2 mg Ondansetron HCl (Ondansetron Hcl 4 Mg/2 Ml Vial) 4 mg IVPUSH Q8H PRN PRN Reason: Nausea and Vomiting Last Admin: 08/06/24 08:44 Dose: 4 mg Sodium Chloride (0.9 % Sodium Chloride Flush 3 Ml Syringe) 3 ml IVFLUSH QSHIFT [facility] Last Admin: 08/06/24 15:25 Dose: Not Given Vitamin D (Cholecalciferol (Vitamin D3) 25 Mcg Tablet) 50 mcg PO DAILY [facility] Last Admin: 08/06/24 09:04 Dose: Not Given Home Medications ?Medication ?Instructions ?Recorded ?Confirmed ?Last Taken ?Type aspirin 81 mg tablet,delayed 81 mg PO BEDTIME 12/26/20 08/05/24 04/01/22 History release (Adult Low Dose Aspirin) insulin glargine 100 unit/mL (3 14 unit subcut BEDTIME 12/26/20 08/05/24 04/01/22 History mL) subcutaneous pen (Lantus Solostar U-100 Insulin) metformin 1,000 mg tablet 1,000 mg PO BID 12/26/20 08/05/24 08/05/24 09:00 History atorvastatin 80 mg tablet 80 mg PO BEDTIME 12/23/21 08/05/24 04/01/22 History blood sugar diagnostic (OneTouch #10 ea 12/23/21 08/05/24 08/05/24 09:00 History Ultra Test strips) furosemide 40 mg tablet 40 mg PO BID 12/23/21 08/05/24 08/05/24 09:00 History lancets 33 gauge (TRUEplus Lancets) #100 ea 12/23/21 08/05/24 08/05/24 09:00 History pen needle, diabetic 31 gauge x #1,200 ea 12/23/21 08/05/24 08/05/24 09:00 History 5/16 (UltiCare Pen Needle) amlodipine 5 mg tablet 5 mg PO BEDTIME 08/05/24 08/05/24 Unknown History cholecalciferol (vitamin D3) 50 50 mcg PO DAILY 08/05/24 08/05/24 08/05/24 09:00 History mcg (2,000 unit) capsule (Vitamin D3) dulaglutide 4.5 mg/0.5 mL 4.5 mg subcut MO@0900 08/05/24 08/05/24 Unknown History subcutaneous pen injector (Trulicity) glipizide 10 mg tablet 10 mg PO DAILY 08/05/24 08/05/24 08/05/24 09:00 History hydralazine 50 mg tablet 50 mg PO BIDWM 08/05/24 08/05/24 08/05/24 09:00 History valsartan 320 mg tablet 320 mg PO DAILY 08/05/24 08/05/24 08/05/24 09:00 History Exam Height,Weight and Vital Signs: Height 5 ft 4 in Weight 68.039 kg Last Vital Signs Temp 97.4 F 08/06/24 14:00 Pulse 63 08/06/24 14:00 Resp 16 08/06/24 14:00 BP 116/58 L 08/06/24 14:00 Pulse Ox 97 08/06/24 14:00 O2 Del Method Nasal Cannula 08/06/24 14:00 O2 Flow Rate 2.5 08/06/24 14:00 Pertinent Lab Results Pertinent Lab Results: Laboratory Tests 08/05/24 08/05/24 08/05/24 13:51 14:35 14:40 WBC 14.2 H RBC 5.11 D Hgb 15.5 D Hct 45.7 D MCV 89.4 MCH 30.3 MCHC 33.9 RDW 13.3 Plt Count 349 D MPV 9.7 Immature Gran % (Auto) 0.4 Neut % (Auto) 83.9 H Lymph % (Auto) 10.6 L [place] % (Auto) 4.7 Eos % (Auto) 0.0 Baso % (Auto) 0.4 Lymph # (Auto) 1.5 [place] # (Auto) 0.7 Eos # (Auto) 0.0 Baso # (Auto) 0.1 Abs Immat Gran (auto) 0.06 H Absolute Neuts (auto) 11.9 H Absolute Nucleated RBC 0.000 Nucleated RBC % (auto) 0.0 Hold Purple Top PT INR VBG pH 7.42 VBG pCO2 39 VBG pO2 39 VBG HCO3 25 VBG O2 Saturation 66.0 VBG Base Excess 1.5 Sodium 134 L Potassium 4.7 Chloride 97 Carbon Dioxide 20 L Anion Gap 22 H BUN 36 H Creatinine 2.09 H Estim Creat Clear Calc 19.6 Estimated GFR 23 POC Glucose 430 H* Random Glucose 416 H* Estimat Average Glucose 309 Hemoglobin A1c % 12.4 H Lactic Acid Lactic Acid F/U @ 2Hr Lactic Acid F/U @ 4Hr Calcium 10.7 H D Magnesium 1.6 Total Bilirubin 0.6 AST 29 ALT 23 Alkaline Phosphatase 120 H Total Creatine Kinase 95 Troponin I High Sens 9.9 B-Natriuretic Peptide 56 Total Protein 7.9 Albumin 4.0 Lipase 16 Beta-Hydroxybutyrate 0.27 Hold Yellow Top Urine Color Urine Appearance Urine pH Ur Specific [place] Urine Protein Urine Glucose (UA) Urine Ketones Urine Blood Urine Nitrite Ur Leukocyte Esterase Urine RBC Urine WBC Ur Squamous Epith Cells Urine Bacteria Hyaline Casts COVID-19 ([facility]) COVID-19 Healcerion 08/05/24 08/05/24 08/05/24 15:48 18:05 18:06 WBC RBC Hgb Hct MCV MCH MCHC RDW Plt Count MPV Immature Gran % (Auto) Neut % (Auto) Lymph % (Auto) [place] % (Auto) Eos % (Auto) Baso % (Auto) Lymph # (Auto) [place] # (Auto) Eos # (Auto) Baso # (Auto) Abs Immat Gran (auto) Absolute Neuts (auto) Absolute Nucleated RBC Nucleated RBC % (auto) Hold Purple Top PT 13.8 H INR 1.2 H VBG pH VBG pCO2 VBG pO2 VBG HCO3 VBG O2 Saturation VBG Base Excess Sodium Potassium Chloride Carbon Dioxide Anion Gap BUN Creatinine Estim Creat Clear Calc Estimated GFR POC Glucose Random Glucose Estimat Average Glucose Hemoglobin A1c % Lactic Acid 3.3 H* Lactic Acid F/U @ 2Hr 3.4 H* Lactic Acid F/U @ 4Hr Calcium Magnesium Total Bilirubin AST ALT Alkaline Phosphatase Total Creatine Kinase Troponin I High Sens B-Natriuretic Peptide Total Protein Albumin Lipase Beta-Hydroxybutyrate Hold Yellow Top Urine Color Yellow Urine Appearance Clear Urine pH 5.0 Ur Specific [place] 1.010 Urine Protein Negative Urine Glucose (UA) >=1000 H Urine Ketones Negative Urine Blood Negative Urine Nitrite Negative Ur Leukocyte Esterase Negative Urine RBC 0-2 Urine WBC 0-5 Ur Squamous Epith Cells 0-2 Urine Bacteria Trace Hyaline Casts 11-20 COVID-19 ([facility]) Negative COVID-19 Healcerion See Note 08/05/24 08/05/24 08/05/24 18:18 20:24 20:53 WBC RBC Hgb Hct MCV MCH MCHC RDW Plt Count MPV Immature Gran % (Auto) Neut % (Auto) Lymph % (Auto) [place] % (Auto) Eos % (Auto) Baso % (Auto) Lymph # (Auto) [place] # (Auto) Eos # (Auto) Baso # (Auto) Abs Immat Gran (auto) Absolute Neuts (auto) Absolute Nucleated RBC Nucleated RBC % (auto) Hold Purple Top SEE NOTE PT INR VBG pH VBG pCO2 VBG pO2 VBG HCO3 VBG O2 Saturation VBG Base Excess Sodium Potassium Chloride Carbon Dioxide Anion Gap BUN Creatinine Estim Creat Clear Calc Estimated GFR POC Glucose 238 H 258 H Random Glucose Estimat Average Glucose Hemoglobin A1c % Lactic Acid Lactic Acid F/U @ 2Hr Lactic Acid F/U @ 4Hr 2.6 H* Calcium Magnesium Total Bilirubin AST ALT Alkaline Phosphatase Total Creatine Kinase Troponin I High Sens B-Natriuretic Peptide Total Protein Albumin Lipase Beta-Hydroxybutyrate Hold Yellow Top See Note Urine Color Urine Appearance Urine pH Ur Specific [place] Urine Protein Urine Glucose (UA) Urine Ketones Urine Blood Urine Nitrite Ur Leukocyte Esterase Urine RBC Urine WBC Ur Squamous Epith Cells Urine Bacteria Hyaline Casts COVID-19 ([facility]) COVID-19 Clin Com 08/06/24 08/06/24 08/06/24 05:04 07:42 10:13 WBC RBC Hgb Hct MCV MCH MCHC RDW Plt Count MPV Immature Gran % (Auto) Neut % (Auto) Lymph % (Auto) [place] % (Auto) Eos % (Auto) Baso % (Auto) Lymph # (Auto) [place] # (Auto) Eos # (Auto) Baso # (Auto) Abs Immat Gran (auto) Absolute Neuts (auto) Absolute Nucleated RBC Nucleated RBC % (auto) Hold Purple Top PT INR VBG pH VBG pCO2 VBG pO2 VBG HCO3 VBG O2 Saturation VBG Base Excess Sodium 140 Potassium 3.5 D Chloride 106 Carbon Dioxide 27 Anion Gap 11 L BUN 31 H Creatinine 1.25 Estim Creat Clear Calc 32.8 Estimated GFR 41 POC Glucose 156 H 172 H Random Glucose 153 H Estimat Average Glucose Hemoglobin A1c % Lactic Acid Lactic Acid F/U @ 2Hr Lactic Acid F/U @ 4Hr Calcium 9.1 D Magnesium 1.5 L Total Bilirubin AST ALT Alkaline Phosphatase Total Creatine Kinase Troponin I High Sens B-Natriuretic Peptide Total Protein Albumin Lipase Beta-Hydroxybutyrate Hold Yellow Top Urine Color Urine Appearance Urine pH Ur Specific [place] Urine Protein Urine Glucose (UA) Urine Ketones Urine Blood Urine Nitrite Ur Leukocyte Esterase Urine RBC Urine WBC Ur Squamous Epith Cells Urine Bacteria Hyaline Casts COVID-19 ([facility]) COVID-19 Clin Com 08/06/24 16:06 WBC RBC Hgb Hct MCV MCH MCHC RDW Plt Count MPV Immature Gran % (Auto) Neut % (Auto) Lymph % (Auto) [place] % (Auto) Eos % (Auto) Baso % (Auto) Lymph # (Auto) [place] # (Auto) Eos # (Auto) Baso # (Auto) Abs Immat Gran (auto) Absolute Neuts (auto) Absolute Nucleated RBC Nucleated RBC % (auto) Hold Purple Top PT INR VBG pH VBG pCO2 VBG pO2 VBG HCO3 VBG O2 Saturation VBG Base Excess Sodium Potassium Chloride Carbon Dioxide Anion Gap BUN Creatinine Estim Creat Clear Calc Estimated GFR POC Glucose 135 H Random Glucose Estimat Average Glucose Hemoglobin A1c % Lactic Acid Lactic Acid F/U @ 2Hr Lactic Acid F/U @ 4Hr Calcium Magnesium Total Bilirubin AST ALT Alkaline Phosphatase Total Creatine Kinase Troponin I High Sens B-Natriuretic Peptide Total Protein Albumin Lipase Beta-Hydroxybutyrate Hold Yellow Top Urine Color Urine Appearance Urine pH Ur Specific [place] Urine Protein Urine Glucose (UA) Urine Ketones Urine Blood Urine Nitrite Ur Leukocyte Esterase Urine RBC Urine WBC Ur Squamous Epith Cells Urine Bacteria Hyaline Casts COVID-19 ([facility]) COVID-19 Clin Com Airway Mallampati Class: II TM Dist: >3cm Neck ROM: Full Heart: RRR Lungs: BSDiminished Assessment and Plan Assessment Anesthesia Assessment: Anesthesia Plan Discussed and Chart Reviewed Final Anesthetic Review Family History of Problems with Anesthesia: No History of Problems with Anesthesia: No NPO: Yes ASA Class: III and Emergency Final Preanesthetic Review: Meds/Allgs Chart Reviewed, Consent Obtained/Reviewed and Anes Risks/Benef Reviewed Patient Risk: Intermediate Procedure Risk: Intermediate Anesthetic Plan Anesthetic Plan: GA Disposition: Standard PACU
--- NOTE | 2024-08-06 17:29 | P.CNUR_ITS ---
History of Present Illness Consult details Consult date: 08/05/24 Narrative: CC: Mid right ureteric stone 83-year-old Indonesian-speaking female Insulin-dependent diabetic Prior and nephrolithiasis with intervention including lithotripsy Presents to hospital with right upper quadrant pain radiating for 3 days Increased shortness of breath the with subjective fever and chills Found to be tachycardic and slightly hypotensive in emergency room WBC 14.2, HbA1c 12.4 CT scan shows right distal ureteric stone 0.5 mm with mild hydro ureter and hydronephrosis Plan for intervention Discussed with patient and daughter Review of Systems 2 Constitutional: Constitutional: Reports as per HPI and Reports no additional constitutional complaints Cardiovascular: Cardiovascular: Reports as per HPI and Reports no additional cardiovascular complaints Respiratory: Respiratory: Reports as per HPI and Reports no additional respiratory complaints Gastrointestinal: Gastrointestinal: Reports as per HPI and Reports no additional gastrointestinal complaints Genitourinary: Genitourinary: Reports as per HPI Musculoskeletal: Musculoskeletal: Reports no additional musculoskeletal complaints and Reports as per HPI Neurologic: Reports system reviewed and no additional complaints, except as documented and Reports as per HPI PMFSH Past Medical History Medical History Hydronephrosis of right kidney Hypertension Diabetes mellitus Gram-negative bacteremia Septic shock UTI (urinary tract infection) Calculus of kidney Osteoporosis Family History Family History Father Heart problem Mother No problems noted. 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 Meds Allergies Allergy/AdvReac Type Severity Reaction Status Date / Time Sulfa (Sulfonamide Allergy Intermediate RASH/ITCH Verified 08/05/24 14:00 Antibiotics) sulfamethoxazole Allergy Intermediate HIVES Verified 08/05/24 14:00 [From BACTRIM] trimethoprim [From BACTRIM] Allergy Intermediate HIVES Verified 08/05/24 14:00 oxycodone [From Percocet] Allergy Unknown Unknown Verified 08/05/24 14:00 penicillin V Allergy Unknown Unknown Verified 08/05/24 14:00 Active Medications: Current Medications Acetaminophen (Acetaminophen 325 Mg Tablet) 650 mg PO Q6H PRN PRN Reason: Pain, Mild (Pain Scale 1-3), fever or headache Amlodipine Besylate (Amlodipine Besylate 5 Mg Tablet) 5 mg PO BEDTIME [place]; Protocol Last Admin: 08/05/24 20:37 Dose: 5 mg Atorvastatin Calcium (Atorvastatin Calcium 80 Mg Tablet) 80 mg PO BEDTIME [place] Last Admin: 08/05/24 20:39 Dose: 80 mg Calcium Carbonate (Calcium Carbonate 750 Mg Tab.Chew) 750 mg PO Q4H PRN PRN Reason: Heartburn Calcium Carbonate (Calcium Oyster Shell Elemental 500 Mg Tablet) 500 mg PO BID [facility] Last Admin: 08/06/24 09:04 Dose: Not Given Glucose (Glucose Gel 15 Gm Gel..Gram.) 15 gm PO Q15M PRN; Protocol PRN Reason: per Hypoglycemia Standing Ord. Hydralazine HCl (Hydralazine Hcl 50 Mg Tablet) 50 mg PO BIDWM [facility]; Protocol Last Admin: 08/06/24 08:31 Dose: Not Given Dextrose (D10) 250 mls @ 750 mls/hr IV Q15M PRN; Protocol PRN Reason: per Hypoglycemia Standing Ord. Sodium Chloride (Ns) 1,000 mls @ 100 mls/hr IVCONT .Q10H [facility] Last Infusion: 08/06/24 16:47 Dose: Infused Insulin Glargine (Insulin Glargine,Hum.Rec.Anlog 100 Unit/Ml 10 Ml Vial) 10 unit SUBCUT BEDTIME [facility] Last Admin: 08/05/24 20:36 Dose: 10 unit Insulin Human Lispro (Insulin Lispro 100 Unit/Ml 3 Ml Vial) 0 unit SUBCUT QIDACHS [facility]; Protocol Last Admin: 08/06/24 16:18 Dose: Not Given Magnesium Hydroxide (Milk Of Magnesia 30 Ml Oral.Susp) 30 ml PO DAILY PRN PRN Reason: Constipation Melatonin (Melatonin 3 Mg Tablet) 6 mg PO BEDTIME PRN PRN Reason: Insomnia Morphine Sulfate (Morphine Sulfate 2 Mg/Ml Cartridge) 2 mg IVPUSH Q4H PRN; Protocol PRN Reason: Pain, Severe (Pain Scale 7-10) Last Admin: 08/06/24 08:45 Dose: 2 mg Ondansetron HCl (Ondansetron Hcl 4 Mg/2 Ml Vial) 4 mg IVPUSH Q8H PRN PRN Reason: Nausea and Vomiting Last Admin: 08/06/24 08:44 Dose: 4 mg Sodium Chloride (0.9 % Sodium Chloride Flush 3 Ml Syringe) 3 ml IVFLUSH QSHIFT [facility] Last Admin: 08/06/24 15:25 Dose: Not Given Vitamin D (Cholecalciferol (Vitamin D3) 25 Mcg Tablet) 50 mcg PO DAILY [facility] Last Admin: 08/06/24 09:04 Dose: Not Given Home Medications ?Medication ?Instructions ?Recorded ?Confirmed ?Last Taken ?Type aspirin 81 mg tablet,delayed 81 mg PO BEDTIME 12/26/20 08/05/24 04/01/22 History release (Adult Low Dose Aspirin) insulin glargine 100 unit/mL (3 14 unit subcut BEDTIME 12/26/20 08/05/24 04/01/22 History mL) subcutaneous pen (Lantus Solostar U-100 Insulin) metformin 1,000 mg tablet 1,000 mg PO BID 12/26/20 08/05/24 08/05/24 09:00 History atorvastatin 80 mg tablet 80 mg PO BEDTIME 12/23/21 08/05/24 04/01/22 History blood sugar diagnostic (OneTouch #10 ea 12/23/21 08/05/24 08/05/24 09:00 History Ultra Test strips) furosemide 40 mg tablet 40 mg PO BID 12/23/21 08/05/24 08/05/24 09:00 History lancets 33 gauge (TRUEplus Lancets) #100 ea 12/23/21 08/05/24 08/05/24 09:00 History pen needle, diabetic 31 gauge x #1,200 ea 12/23/21 08/05/24 08/05/24 09:00 History /16 (UltiCare Pen Needle) amlodipine 5 mg tablet 5 mg PO BEDTIME 08/05/24 08/05/24 Unknown History cholecalciferol (vitamin D3) 50 50 mcg PO DAILY 08/05/24 08/05/24 08/05/24 09:00 History mcg (2,000 unit) capsule (Vitamin D3) dulaglutide 4.5 mg/0.5 mL 4.5 mg subcut MO@0900 08/05/24 08/05/24 Unknown History subcutaneous pen injector (Trulicity) glipizide 10 mg tablet 10 mg PO DAILY 08/05/24 08/05/24 08/05/24 09:00 History hydralazine 50 mg tablet 50 mg PO BIDWM 08/05/24 08/05/24 08/05/24 09:00 History valsartan 320 mg tablet 320 mg PO DAILY 08/05/24 08/05/24 08/05/24 09:00 History Physical Exam 2 Vital Signs: Vital Signs: Last Vital Signs Temp 98 F 08/06/24 16:57 Pulse 66 08/06/24 16:57 Resp 16 08/06/24 16:57 BP 132/52 L 08/06/24 16:57 Pulse Ox 95 08/06/24 16:57 O2 Del Method Room Air 08/06/24 16:57 O2 Flow Rate 2.5 08/06/24 14:00 BMI result Body Mass Index 25.7 Const: General: cooperative, healthy appearing, comfortable and no acute distress Orientation/consciousness: patient oriented x3 HEENT: Face and sinus: Yes normal facial exam Mouth: moist mucous membranes Neck: Neck: Yes normal visual inspection, Yes full ROM and Yes trachea midline Chest: Chest palpation & inspection: normal inspection of the chest Resp: Effort & Inspection: normal respiratory effort, able to speak in complete sentences and no respiratory distress GI: Inspection: Yes normal to inspection Back/Spine/Pelvis: Cervical Spine: normal cervical lordosis Thoracic/Lumbar Spine: thoracic and lumbar spine normal to inspection Skin: General skin exam: no rashes or lesions noted Neuro: General: patient oriented x3, tone normal and moves all extremities Extrem: General: Yes normal to inspection and Yes capillary refill normal Results Labs 08/05/24 14:35 08/06/24 05:04 Labs: Abnormal lab results 08/05/24 08/05/24 08/05/24 Range/Units 14:35 18:05 18:06 Anion Gap (12-20) BUN (9-16) mg/dL POC Glucose (60-115) mg/dL Random Glucose (60-115) mg/dL Hemoglobin A1c % 12.4 H (<6.0) % Lactic Acid F/U @ 2Hr 3.4 H* (0.5-2.0) mmol/L Lactic Acid F/U @ 4Hr (0.5-2.0) mmol/L Magnesium (1.6-2.6) mg/dL Urine Glucose (UA) >=1000 H (Negative) mg/dL 08/05/24 08/05/24 08/05/24 Range/Units 18:18 20:24 20:53 Anion Gap (12-20) BUN (9-16) mg/dL POC Glucose 238 H 258 H (60-115) mg/dL Random Glucose (60-115) mg/dL Hemoglobin A1c % (<6.0) % Lactic Acid F/U @ 2Hr (0.5-2.0) mmol/L Lactic Acid F/U @ 4Hr 2.6 H* (0.5-2.0) mmol/L Magnesium (1.6-2.6) mg/dL Urine Glucose (UA) (Negative) mg/dL 08/06/24 08/06/24 08/06/24 Range/Units 05:04 07:42 10:13 Anion Gap 11 L (12-20) BUN 31 H (9-16) mg/dL POC Glucose 156 H 172 H (60-115) mg/dL Random Glucose 153 H (60-115) mg/dL Hemoglobin A1c % (<6.0) % Lactic Acid F/U @ 2Hr (0.5-2.0) mmol/L Lactic Acid F/U @ 4Hr (0.5-2.0) mmol/L Magnesium 1.5 L (1.6-2.6) mg/dL Urine Glucose (UA) (Negative) mg/dL 08/06/24 Range/Units 16:06 Anion Gap (12-20) BUN (9-16) mg/dL POC Glucose 135 H (60-115) mg/dL Random Glucose (60-115) mg/dL Hemoglobin A1c % (<6.0) % Lactic Acid F/U @ 2Hr (0.5-2.0) mmol/L Lactic Acid F/U @ 4Hr (0.5-2.0) mmol/L Magnesium (1.6-2.6) mg/dL Urine Glucose (UA) (Negative) mg/dL BMP 08/06/24 05:04 Sodium 140 Potassium 3.5 D Chloride 106 Carbon Dioxide 27 BUN 31 H Creatinine 1.25 Calcium 9.1 D Urine 08/05/24 Range/Units 18:06 Urine Color Yellow Urine Appearance Clear Urine pH 5.0 (5.0-9.0) Ur Specific [place] 1.010 (1.005-1.025) Urine Protein Negative (Neg-Trace) mg/dL Urine Glucose (UA) >=1000 H (Negative) mg/dL All other labs normal. Assessment and Plan (1) Nephrolithiasis: Status: Acute Plan Ureteroscopy We discussed the nature of the decision and reasonable alternatives for performing ureteroscopy. Options such as medical therapy were discussed. Interventions include chemical dissolution, ESWL, ureteroscopy with laser lithotripsy and stent placement, PCNL. The relative uncertainties and benefits related to each alternate procedure were adequately discussed. General surgical risks including, but not limited to - pain, bleeding, infection, myocardial infarction, pulmonary embolus, deep vein thrombosis and cerebrovascular accident which may result in further hospitalization were discussed. Full disclosure of the procedure as well as all major risks, benefits and complications were discussed including but not limited to damage to the urethra, bladder and kidney infection, damage to the ureter, stent migration or malposition, scarring to the renal pelvis, remnant stone fragments, subsequent stone passage with need for secondary procedures. The overall secondary procedure rate is approximately 10-15%. The overall clearance rate is approximately 90-95%. Success of the procedure in the short-term does not necessarily guarantee that long-term success will be maintained. Suitable follow up will need to be maintained. The patient showed understanding of discussion and wishes to proceed with - cystoscopy, retrograde, ureteroscopy, possible lithotripsy/stone basketing and stent on the right side Procedures Date of Service Date of Service: 08/06/24
--- NOTE | 2024-08-06 17:32 | MHC.SHP ---
Pre-Procedural Eval Section A - 24 Hr Update-Section A only Date of Service: 08/06/24 The patient is an INPATIENT: Yes Changes since office visit: No Cold of Flu in the past 2 weeks, No New Medical Problems, No Changes in Medication and No Patient answered all questions The patient has been examined within 24 hours of the surgical procedure. The History & Physical has been completed within 30 days and I have reviewed it.: Yes Section B - Complete if H&P > 30 days Chief Complaint: Ureteral obstruction Details of Present Illness: Distal right ureteric obstruction Allergies: Allergies Allergy/AdvReac Type Severity Reaction Status Date / Time Sulfa (Sulfonamide Allergy Intermediate RASH/ITCH Verified 08/05/24 14:00 Antibiotics) sulfamethoxazole Allergy Intermediate HIVES Verified 08/05/24 14:00 [From BACTRIM] trimethoprim [From BACTRIM] Allergy Intermediate HIVES Verified 08/05/24 14:00 oxycodone [From Percocet] Allergy Unknown Unknown Verified 08/05/24 14:00 penicillin V Allergy Unknown Unknown Verified 08/05/24 14:00 Plan Diagnosis/Plan: Unchanged (Cystoscopy, right retrograde, right ureteroscopy with laser lithotripsy, stone basketing, stent placement) I have reviewed the history and physical and performed a pertinent physical examination on my patient. No changes have occurred unless specified. Time Spent With Patient Time: Total time managing care of this patient today ____ minutes.
--- NOTE | 2024-08-06 18:09 | W.PM.OPN ---
Operative Note Operative Note Date of Service: 08/06/24 Narrative: PreOperative Diagnosis: Right distal ureteric stone Post Operative Diagnosis: Right distal ureteric stone Procedure: - cystoscopy, right retrograde - right dilatation of ureteric orifice under fluoroscopy - right ureteroscopy, laser lithotripsy, stone basketing - right stent placement Surgeon: Dr Adalberto Goldstein Anesthesia: General Indications for procedure: Admit through emergency room. Right distal ureteric stone with mildly elevated creatinine. Recommend intervention Procedure: After informed consent was verified the patient was brought to the operating room and placed in a supine position. Anesthesia was administered per protocol. The patient was placed in a modified dorsal lithotomy position and prepped and draped in a sterile fashion. Safety pause time-out and side of surgery were confirmed. Images were available for review. Antibiotic administration confirmed. A 22 [place] cystoscope was inserted per urethra. The urethra was without abnormality. The bladder was normal in its entirety. Both ureteric orifices were seen in normal position. The right ureteric orifice was cannulated and a retrograde examination was performed. Filling defects seen at junction between mid and distal ureter with proximal hydro uretero nephrosis . A Sensor guidewire was placed up to the level of the renal pelvis under fluoroscopy. The rigid cystoscope was removed. A Rock dilator was placed over the Sensor guidewire and used to dilate the ureteric orifice under fluoroscopy. The dilator was removed. The semi rigid ureteral scope was placed alongside the Sensor guidewire. Stone was encountered at the previously seen filling defect position. Using a 365 micro holmium laser fiber the stone was broken into small pieces using a combination of hammer and dusting techiques. Stone fragments were removed from the ureter using a ZeroTip 2.4 [place] basket basket. Once the fragments were removed a decision was made to place a ureteric stent. Based on the height of the patient a 6 Fr x 22 stent was used. The string was removed from the stent prior to placement. A 6 [place] by 22 cm double-J stent was placed into the renal pelvis and bladder under a combination of fluoroscopy and direct visualization. The symphisis pubis was used as a radiographic marker to release the stent and good coil was seen within the bladder confirming position Proximal positioning of the stent was confirmed using fluoroscopy. The bladder was emptied. The patient tolerated the procedure well and was extubated in the operating room. They were transferred in stable condition to the recovery area. Pathology: Stone fragments Drains: Double J stent as described above
[2024-08-06 19:15] LABS: Glucose, Whole Blood 130 mg/dL (60-115)
[2024-08-06] MEDS: Phenazopyridine HCL 100 MG TABLET PO (19:21)
[2024-08-06] MEDS: Acetaminophen 325 MG TABLET 975 MG PO (19:25)
[2024-08-06] MEDS: Ketorolac Tromethamine 15 MG/ML VIAL IVPUSH (19:26)
[2024-08-06] MEDS: 0.9 % Sodium Chloride Flush 3 ML SYRINGE IVFLUSH (19:29)
[2024-08-06] MEDS: Insulin Glargine,Hum.rec.anlog 100 UNIT/ML 10 ML VIAL 10 UNIT SUBCUT (20:49)
[2024-08-06] MEDS: Calcium Oyster Shell Elemental 500 MG TABLET PO (20:50)
[2024-08-06] MEDS: amLODIPine Besylate 5 MG TABLET PO (20:50)
[2024-08-06] MEDS: Atorvastatin Calcium 80 MG TABLET PO (20:50)
[2024-08-07] VITALS (9 sets, daily range): BP systolic 113–159; BP diastolic 57–77; PULSE 58–99; RESP 14–18; TEMP 36.1–36.6; O2SAT 93–98
[2024-08-07] MEDS: 0.9 % Sodium Chloride 1,000 ML 100 ML IVCONT (04:32)
[2024-08-07] MEDS: Morphine Sulfate 2 MG/ML CARTRIDGE IVPUSH (04:42)
[2024-08-07 06:09] LABS: Anion Gap 10 (12-20); Blood Urea Nitrogen 24 mg/dL (9-16); Calcium 8.9 mg/dL (8.4-10.2); Carbon Dioxide 25 mmol/L (22-29); Chloride 108 mmol/L (96-108); Creatinine Clr Calc Pharmacy 44.6; Estimated Glomerular Filt Rate 58; Glucose Random 158 mg/dL (60-115); Potassium 3.6 mmol/L (3.3-5.1); Sodium 139 mmol/L (135-145)
--- NOTE | 2024-08-07 06:35 | PC.NURSE ---
pt medicated with morphine 2mg IV at 0442 for c/p right flank pain.pt continues to have pain and not due until 0842 . notified and morphine 4mg IV x 1 ordered.
[2024-08-07 07:33] LABS: Glucose, Whole Blood 137 mg/dL (60-115)
[2024-08-07 08:10] LABS: MANUAL DIFF FLAG NO
[2024-08-07 08:14] LABS: Basophils Absolute Auto 0.1 X10*3/uL (0.0-0.2); Basophils Percent Auto 0.7 % (0-2); Eosinophils Absolute Auto 0.4 X10*3/uL (0.0-0.4); Eosinophils Percent Auto 4.4 % (0-4); Hematocrit 37.4 % (37.0-47.0); Hemoglobin 12.5 g/dl (12.0-16.0); Imm Gran Abs Auto 0.02 X10*3/uL (0.00-0.03); Imm Gran Pct Auto 0.2 % (0.0-0.4); Lymphocytes Absolute Auto 2.1 X10*3/uL (1.2-4.9); Lymphocytes Percent Auto 26.1 % (20-40); Mean Corpuscular HGB Conc 33.4 g/dl (31.0-35.0); Mean Corpuscular Hemoglobin 30.5 pg (27.0-33.0); Mean Corpuscular Volume 91.2 fL (80.0-98.0); Mean Platelet Volume 9.8 fL (9.4-12.3); Monocytes Absolute Auto 0.6 X10*3/uL (0.1-1.2); Monocytes Percent Auto 7.6 % (2-11); Platelet Count 270 X10*3/uL (160-400); Red Cell Distribution Width 13.5 % (11.0-16.0); White Blood Count 8.2 X10*3/uL (4.8-10.8)
[2024-08-07 08:24] LABS: Magnesium 1.6 mg/dL (1.6-2.6)
[2024-08-07] MEDS: Calcium Oyster Shell Elemental 500 MG TABLET PO ×2 (09:06→20:05)
[2024-08-07] MEDS: hydrALAZINE HCl 50 MG TABLET PO ×2 (09:06→17:28)
[2024-08-07] MEDS: Cholecalciferol (Vitamin D3) 25 MCG TABLET 50 MCG PO (09:06)
[2024-08-07] MEDS: traMADoL HCL 50 MG TABLET 25 MG PO ×2 (09:12→20:04)
[2024-08-07 11:33] LABS: Glucose, Whole Blood 215 mg/dL (60-115)
--- NOTE | 2024-08-07 11:49 | MHC.CM.PN ---
Per MD patient medically cleared for dc home w/ new [facility] services (SN and PT). CM met with patient at bedside via spanish tutor. Patient agreeable to plan and will coordinate for transport home at 3pm. RN and aware.
[2024-08-07] MEDS: Insulin Lispro 100 UNIT/ML 3 ML VIAL SUBCUT ×3 (11:54→20:10)
--- NOTE | 2024-08-07 12:56 | HO.POSTANES ---
Post Anesthesia Evaluation Post Anesthesia Evaluation Date of Service: 08/07/24 Vital Signs: Vital Signs Temp Pulse Resp BP Pulse Ox O2 Del Method 08/07/24 12:01 96.9 F 94 16 127/57 L 96 Room Air 08/07/24 08:54 96.9 F 68 16 143/64 H 97 Room Air 08/07/24 07:23 97.2 F 58 14 113/58 L 93 Room Air 08/07/24 07:11 97.0 F 83 18 135/77 97 Room Air 08/07/24 05:48 97.7 F 70 16 120/62 93 Room Air Anesthesia: General Mental Status: Awake Pain Control: Satisfactory Nausea/Vomiting: None Hydration: Adequate Anesthesia-Related Issues: No Anes. Related Issues
[2024-08-07 16:13] LABS: Glucose, Whole Blood 171 mg/dL (60-115)
--- NOTE | 2024-08-07 18:22 | HO.PM.IMPN ---
Subjective Subjective Date of Service: 08/07/24 Interval History: f/u on obstructive uropathy kristen resolved. Physical Exam Vital Signs: Vital Signs: Last Vital Signs Temp 97.9 F 08/07/24 15:29 Pulse 84 08/07/24 17:20 Resp 18 08/07/24 17:20 BP 159/67 H 08/07/24 17:28 Pulse Ox 98 08/07/24 17:20 O2 Del Method Room Air 08/07/24 17:20 O2 Flow Rate 2.5 08/06/24 14:00 BMI result Body Mass Index 25.7 Const: Other: General: AO X 3, no acute distress Resp: CTA bilateral CVS: S1,S2,RRR GI: +BS, NT, no distention Skin: No rash Neuro: motor grossly intact Psych: appropriate affect Objective Data Active Medications Acetaminophen (Acetaminophen 325 Mg Tablet) 650 mg PO Q6H PRN PRN Reason: Pain, Mild (Pain Scale 1-3), fever or headache Amlodipine Besylate (Amlodipine Besylate 5 Mg Tablet) 5 mg PO BEDTIME [facility]; Protocol Last Admin: 08/06/24 20:50 Dose: 5 mg Documented By: MELIDA Atorvastatin Calcium (Atorvastatin Calcium 80 Mg Tablet) 80 mg PO BEDTIME [place] Last Admin: 08/06/24 20:50 Dose: 80 mg Documented By: MELIDA Calcium Carbonate (Calcium Carbonate 750 Mg Tab.Chew) 750 mg PO Q4H PRN PRN Reason: Heartburn Calcium Carbonate (Calcium Oyster Shell Elemental 500 Mg Tablet) 500 mg PO BID [facility] Last Admin: 08/07/24 09:06 Dose: 500 mg Documented By: DAMASO Glucose (Glucose Gel 15 Gm Gel..Gram.) 15 gm PO Q15M PRN; Protocol PRN Reason: per Hypoglycemia Standing Ord. Hydralazine HCl (Hydralazine Hcl 50 Mg Tablet) 50 mg PO BIDWM [facility]; Protocol Last Admin: 08/07/24 17:28 Dose: 50 mg Documented By: ABISAI Dextrose (D10) 250 mls @ 750 mls/hr IV Q15M PRN; Protocol PRN Reason: per Hypoglycemia Standing Ord. Insulin Glargine (Insulin Glargine,Hum.Rec.Anlog 100 Unit/Ml 10 Ml Vial) 10 unit SUBCUT BEDTIME [facility] Last Admin: 08/06/24 20:49 Dose: 10 unit Documented By: MELIDA Insulin Human Lispro (Insulin Lispro 100 Unit/Ml 3 Ml Vial) 0 unit SUBCUT QIDACHS [facility]; Protocol Last Admin: 08/07/24 17:30 Dose: 2 unit Documented By: ABISAI Magnesium Hydroxide (Milk Of Magnesia 30 Ml Oral.Susp) 30 ml PO DAILY PRN PRN Reason: Constipation Melatonin (Melatonin 3 Mg Tablet) 6 mg PO BEDTIME PRN PRN Reason: Insomnia Morphine Sulfate (Morphine Sulfate 2 Mg/Ml Cartridge) 2 mg IVPUSH Q4H PRN; Protocol PRN Reason: Pain, Severe (Pain Scale 7-10) Last Admin: 08/07/24 04:42 Dose: 2 mg Documented By: MELIDA Naloxone HCl (Naloxone Hcl 0.4 Mg/Ml Vial) 0.04 mg IVPUSH Q5M PRN PRN Reason: Excessive sedation or RR < 8 Ondansetron HCl (Ondansetron Hcl 4 Mg/2 Ml Vial) 4 mg IVPUSH Q8H PRN PRN Reason: Nausea and Vomiting Last Admin: 08/06/24 08:44 Dose: 4 mg Documented By: MAC Sodium Chloride (0.9 % Sodium Chloride Flush 3 Ml Syringe) 3 ml IVFLUSH [facility] Last Admin: 08/07/24 17:06 Dose: Not Given Documented By: DAMASO Non-Admin Reason: Previously Administered Tramadol HCl (Tramadol Hcl 50 Mg Tablet) 25 mg PO Q4H PRN PRN Reason: Pain, Moderate(Pain Scale 4-6) Last Admin: 08/07/24 09:12 Dose: 25 mg Documented By: DAMASO Vitamin D (Cholecalciferol (Vitamin D3) 25 Mcg Tablet) 50 mcg PO DAILY [facility] Last Admin: 08/07/24 09:06 Dose: 50 mcg Documented By: DAMASO Labs 08/07/24 05:30 08/07/24 05:30 Labs: Laboratory Results - last 24 hr 08/06/24 08/07/24 08/07/24 19:11 05:30 07:28 MCV 91.2 MCH 30.5 MCHC 33.4 RDW 13.5 Plt Count 270 MPV 9.8 Immature Gran % (Auto) 0.2 Neut % (Auto) 61.0 Lymph % (Auto) 26.1 [place] % (Auto) 7.6 Eos % (Auto) 4.4 H Baso % (Auto) 0.7 Lymph # (Auto) 2.1 [facility] # (Auto) 0.6 Eos # (Auto) 0.4 Baso # (Auto) 0.1 Abs Immat Gran (auto) 0.02 Absolute Neuts (auto) 5.0 Absolute Nucleated RBC 0.000 Nucleated RBC % (auto) 0.0 Hold Purple Top SEE NOTE Anion Gap 10 L Estim Creat Clear Calc 44.6 Estimated GFR 58 POC Glucose 130 H 137 H Random Glucose 158 H Calcium 8.9 Magnesium 1.6 08/07/24 08/07/24 11:21 16:09 MCV MCH MCHC RDW Plt Count MPV Immature Gran % (Auto) Neut % (Auto) Lymph % (Auto) [facility] % (Auto) Eos % (Auto) Baso % (Auto) Lymph # (Auto) [facility] # (Auto) Eos # (Auto) Baso # (Auto) Abs Immat Gran (auto) Absolute Neuts (auto) Absolute Nucleated RBC Nucleated RBC % (auto) Hold Purple Top Anion Gap Estim Creat Clear Calc Estimated GFR POC Glucose 215 H 171 H Random Glucose Calcium Magnesium Microbiology Microbiology Results: Microbiology 08/05/24 15:48 Blood Culture - Preliminary Blood - Venous No growth after 48 hours. 08/05/24 15:48 Blood Culture - Preliminary Blood - Venous No growth after 48 hours. Assessment and Plan (1) Pneumonia: Status: Acute (2) KRISTEN (acute kidney injury): Status: Acute Plan 83-year-old female with a PMH significant for?HTN, HLD, insulin-dependent type 2 diabetes, nephrolithiasis s/p lithotripsy, osteoporosis, and CKD 3 who presents to the ED with?multiple complaints, including lightheadedness and dizziness, fall at home, and RUQ abdominal pain radiating to chest x4 days. Pt will be admitted to the hospital for treatment and further evaluation of KRISTEN in the setting of right ureteral obstruction. KRISTEN in the setting of right ureteral obstruction Pt with RUQ abd pain x4 days, N/V today CT showing distal right ureteral stone of 0.5 cm with minimal right hydroureter and hydronephrosis and adjacent fat stranding Previous history of nephrolithiasis status post lithotripsy plan KRISTEN d/t obstructive uropathy, resolved Question of pneumonia--Azithro and Ceftriaxone Fall at home, PT recommends STR Acute Lactic acidosis improving, no further checking of lactic acid unless clinically situation chnages. Likely secondary to metformin use, not sepsis Patient received IVF HTN Continue amlodipine, hydralazine Hold valsartan due to KRISTEN Insulin dependent type 2 diabetes with hyperglycemia holding trulicity, metformin, glipizide. Lantus, sliding scale CAD/HLD Continue statin Hold aspirin due to possible surgical procedure Full Code DVT Prophylaxis: Quality Stroke Does the patient have a stroke diagnosis?: No VTE Prior VTE?: No VTE Risk Level:: Medical - moderate - high VTE Device Contraindication: N/A - Device Ordered VTE Drug Contraindication: Treatment Not Indicated
[2024-08-07] MEDS: amLODIPine Besylate 5 MG TABLET PO (20:05)
[2024-08-07] MEDS: Insulin Glargine,Hum.rec.anlog 100 UNIT/ML 10 ML VIAL 10 UNIT SUBCUT (20:05)
[2024-08-07] MEDS: 0.9 % Sodium Chloride Flush 3 ML SYRINGE IVFLUSH (20:05)
[2024-08-07] MEDS: Atorvastatin Calcium 80 MG TABLET PO (20:05)
[2024-08-07 20:11] LABS: Glucose, Whole Blood 269 mg/dL (60-115)
[2024-08-08 05:00] VITALS: BP 111/58; PULSE 70; RESP 16; TEMP 36.7; O2SAT 94
[2024-08-08 07:09] LABS: Anion Gap 11 (12-20); Blood Urea Nitrogen 22 mg/dL (9-16); Calcium 8.9 mg/dL (8.4-10.2); Carbon Dioxide 25 mmol/L (22-29); Chloride 105 mmol/L (96-108); Creatinine Clr Calc Pharmacy 46.7; Estimated Glomerular Filt Rate > 60; Glucose Random 168 mg/dL (60-115); Potassium 3.6 mmol/L (3.3-5.1); Sodium 137 mmol/L (135-145)
[2024-08-08 07:16] VITALS: BP 126/57; PULSE 68; RESP 16; TEMP 36.3; O2SAT 96
[2024-08-08 07:23] LABS: Glucose, Whole Blood 145 mg/dL (60-115)
[2024-08-08] MEDS: Cholecalciferol (Vitamin D3) 25 MCG TABLET 50 MCG PO (07:46)
[2024-08-08] MEDS: Calcium Oyster Shell Elemental 500 MG TABLET PO (07:46)
[2024-08-08] MEDS: Acetaminophen 325 MG TABLET 650 MG PO (07:47)
[2024-08-08] MEDS: hydrALAZINE HCl 50 MG TABLET PO (07:47)
[2024-08-08] MEDS: 0.9 % Sodium Chloride Flush 3 ML SYRINGE IVFLUSH (07:47)
--- NOTE | 2024-08-08 08:31 | PM.DS ---
DS: Providers Provider Date of Service: 08/08/24 Date of admission: 08/05/24 19:36 Date of discharge: 08/08/24 Primary care physician: Louie Narayanan MD Consults: 08/05/24 19:36 Consult to Urology Routine Consulting Provider: [facility] Reason for consultation: Right ureterolithiasis DS: Diagnosis Discharge Diagnosis (1) Pneumonia: Status: Acute (2) KRISTEN (acute kidney injury): Status: Acute DS: Summary Hospital Course Hospital Course: admission hpi Chief Complaint: Fall at home, abd pain Pt is an 83-year-old female with a PMH significant for?HTN, HLD, insulin-dependent type 2 diabetes, nephrolithiasis s/p lithotripsy, osteoporosis, and CKD 3 who presents to the ED with?multiple complaints, including lightheadedness and dizziness, fall at home, and RUQ abdominal pain radiating to chest x4 days. Patient has also been experiencing increased shortness a breath, mostly nonproductive cough, and subjective fever and chills. Also reports nausea and vomiting that she is primarily experienced since being in the ED. patient states her fall at home occurred when she stood up from sitting on her couch and she felt lightheaded and dizzy, and fell back on the couch in a seated position. Denies LOC or head strike. In the ED pt was tachycardic up to 103 and mildly hypertensive at 154/75. Labs were significant for leukocytosis 14.2, sodium 134, BUN 36, creatinine 2.09 (baseline 0.90), and POC 430. UA negative for UTI. CT of abdomen found distal right ureteral stone of up to 0.5 cm with minimal right hydroureter and hydronephrosis and adjacent fat stranding. CTA of chest with left lingula and left lower lobe focal opacities possibly representing atelectasis versus early pneumonia. CT?of head negative for acute intracranial pathology. CT of cervical spine negative for acute abnormality. EKG demonstrated normal sinus rhythm without evidence of significant ST elevations or depressions. Pt was treated with IVF, insulin IV, ceftriaxone, and azithromycin. Pt will be admitted to the hospital for treatment and further evaluation of KRISTEN in the setting of right ureteral obstruction. hospital course: Patient was admitted for management of obstructive kidney stone complicated by KRISTEN. The next day she undwent cystoscopy, right retrograde - right dilatation of ureteric orifice under fluoroscopy - right ureteroscopy, laser lithotripsy, stone basketing - right stent placement Renal failure has since resolved with Creatine 2.09 to 0.88 and her pain is resolved. ? Pneumoni CT chest show possible pneumonia, along with leukocytosis, however no hypoxia, no fever and no respiratory complaint at all and therefore antibiotics are not continued Time Attestation Discharge Coordination Time (in mins): 35 Quality: Safe Use of Opioids Does Pt have an Active Cancer Diagnosis on the Problem List?: No Quality: Stroke Does the patient have a stroke diagnosis?: No Physical Exam Vital Signs: Vital Signs: Last Vital Signs Temp 97.3 F 08/08/24 07:16 Pulse 68 08/08/24 07:16 Resp 16 08/08/24 07:16 BP 126/57 L 08/08/24 07:16 Pulse Ox 96 08/08/24 07:16 O2 Del Method Room Air 08/08/24 07:16 O2 Flow Rate 2.5 08/06/24 14:00 BMI result Body Mass Index 25.7 General: AO X 3, no acute distress Resp: CTA bilateral CVS: S1,S2,RRR GI: +BS, NT, no distention Skin: No rash Neuro: motor grossly intact Psych: appropriate affect DS: Data Data Completed and Pending Completed studies during hospitalization [Text1]: Procedures Dilation of Right Ureter with Intraluminal Device, Via Natural or Artificial Opening Endoscopic (02/26/22) Fluoroscopy of Right Kidney, Ureter and Bladder (04/02/22) Fragmentation in Right Ureter, Via Natural or Artificial Opening Endoscopic (04/02/22) Insertion of Infusion Device into Right Atrium, Percutaneous Approach (02/26/22) Introduction of Vasopressor into Peripheral Vein, Percutaneous Approach (02/26/22) Ultrasonography of Superior Vena Cava, Guidance (02/26/22) Pending studies at discharge: Pending at discharge 08/06/24 18:03 Surgical [PTH] Routine Labs on day of discharge: Laboratory Results - last 24 hr 08/07/24 08/07/24 08/07/24 11:21 16:09 20:05 Hold Purple Top Sodium Potassium Chloride Carbon Dioxide Anion Gap BUN Creatinine Estim Creat Clear Calc Estimated GFR POC Glucose 215 H 171 H 269 H Random Glucose Calcium 08/08/24 08/08/24 05:17 07:19 Hold Purple Top SEE NOTE Sodium 137 Potassium 3.6 Chloride 105 Carbon Dioxide 25 Anion Gap 11 L BUN 22 H Creatinine 0.88 Estim Creat Clear Calc 46.7 Estimated GFR > 60 POC Glucose 145 H Random Glucose 168 H Calcium 8.9 Preliminary micro results at discharge 08/05/24 15:48 Blood Culture - Preliminary Blood - Venous No growth after 48 hours. 08/05/24 15:48 Blood Culture - Preliminary Blood - Venous No growth after 48 hours. Discharge Plan Discharge Anticipated Discharge Date/Time: 08/08/24 08:27 Patient Disposition: Home Health Service Discharge Diagnosis: Kidney stone, acute renal failure, Referrals: Fatimah MARI [Outside] - 1 Day ([place] [facility] will call you to schedule nursing and physical therapy appointments) Musa Naranjo MD [Physician] - Louie Narayanan MD [Primary Care Provider] - Discharge Medications: New cefuroxime axetil 500 mg Tablet 500 mg PO Q12H Qty: 7 0RF Continued calcium carbonate 600 mg calcium (1,500 mg) tablet 600 mg PO BID Qty: 180 3RF amlodipine 5 mg tablet 5 mg PO BEDTIME valsartan 320 mg tablet 320 mg PO DAILY hydralazine 50 mg tablet 50 mg PO BIDWM glipizide 10 mg tablet 10 mg PO DAILY cholecalciferol (vitamin D3) [Vitamin D3] 50 mcg (2,000 unit) capsule 50 mcg PO DAILY Trulicity 4.5 mg/0.5 mL pen injector 4.5 mg subcut MO@0900 aspirin [Adult Low Dose Aspirin] 81 mg tablet,delayed release (DR/EC) 81 mg PO BEDTIME metformin 1,000 mg tablet 1,000 mg PO BID Lantus Solostar U-100 Insulin 100 unit/mL (3 mL) insulin pen 14 unit subcut BEDTIME furosemide 40 mg tablet 40 mg PO BID atorvastatin 80 mg tablet 80 mg PO BEDTIME (DME) lancets [TRUEplus Lancets] 33 gauge misc See Rx Instructions topical TID Qty: 100 Rx Instructions: As directed (DME) OneTouch Ultra Test Strip See Rx Instructions .ROUTE TID Qty: 10 Rx Instructions: As directed (DME) pen needle, diabetic [UltiCare Pen Needle] 31 gauge x 5/16 needle See Rx Instructions subcut DAILY Qty: 1200 Rx Instructions: As directed Discharge Orders: Discharge Order (Routine); Ordered 08/08/24 Ordered By: Reid Lambert Diet: Diabetic diet Activity on Discharge: As tolerated Stand Alone Forms: Patient Portal Discharge page Print Language: Kinyarwanda Care Plan Goals: recovery from kidney stone Health Concerns: kidney stone kidney failure pneumonia Plan of Treatment: take cefuroxime for pneumonia Assessment: see above Discharge Date/Time: 08/08/24 11:06
[2024-08-08 08:47] LABS: MANUAL DIFF FLAG NO
[2024-08-08 08:50] LABS: Basophils Absolute Auto 0.1 X10*3/uL (0.0-0.2); Basophils Percent Auto 0.7 % (0-2); Eosinophils Absolute Auto 0.3 X10*3/uL (0.0-0.4); Eosinophils Percent Auto 3.5 % (0-4); Hematocrit 35.7 % (37.0-47.0); Hemoglobin 12.1 g/dl (12.0-16.0); Imm Gran Abs Auto 0.03 X10*3/uL (0.00-0.03); Imm Gran Pct Auto 0.3 % (0.0-0.4); Lymphocytes Absolute Auto 2.6 X10*3/uL (1.2-4.9); Lymphocytes Percent Auto 27.9 % (20-40); Mean Corpuscular HGB Conc 33.9 g/dl (31.0-35.0); Mean Corpuscular Volume 91.5 fL (80.0-98.0); Mean Platelet Volume 9.9 fL (9.4-12.3); Monocytes Absolute Auto 0.8 X10*3/uL (0.1-1.2); Monocytes Percent Auto 8.8 % (2-11); Neutrophils Absolute Auto 5.4 x10*3/uL (2.0-8.3); Neutrophils Percent Auto 58.8 % (45-73); Platelet Count 276 X10*3/uL (160-400); Red Cell Distribution Width 13.6 % (11.0-16.0); White Blood Count 9.1 X10*3/uL (4.8-10.8)
--- NOTE | 2024-08-08 09:21 | MHC.CM.PN ---
Per MD patient medically cleared for dc home w/ new [facility] services. Patient's friend will provide transport at 11am. RN and aware.
--- NOTE | 2024-08-08 09:35 | W.MHC.F2F ---
Service Date Service Date: 08/08/24 Encounter Date of encounter: 08/08/24 Reasons for Services Signs and symptoms assessed: weakness post hospitalization Reason for detention: medication management and teach disease management Reason for physical therapy: home safety and mobility and therapeutic exercises Homebound: Leaving the home is medically contraindicated at this time without the asist of a device and/or another person due th the listed conditions above and below. Reason homebound: weakness related to hospital stay Homebound supporting statement: homebound due to deconditioning from hospitalization, doesn't drive and therefore needs the assistance of anothe person Certification: Based on the above findings, I certify that this patient is confined to the home and needs intermittent detention care, physical therapy and/or speech therapy, or continues to need occupational therapy. The patient is under my care, and I have initiated the establishment of the plan of care. The patient will be followed by a physician who will periodically review the plan of care. Time Spent With Patient Time: Total time managing care of this patient today ____ minutes.
[2024-08-08] MEDS: cefuroxime axetiL 500 MG TABLET PO (10:28)
[2024-08-17 02:24] LABS: Stone Source STONE
== END 2024-08-08 11:06 | disposition home health service (06) | DRG 659 ==
LOC: HO.ED 18:11 → HO.EDOVER 19:56 → HO.S3 08-06 08:43
PROVIDERS: Internal Medicine; Physician Assistant; Urology; Admitting Provider Student in an Organized Health Care Education/Training Program; Emergency Provider Emergency Medicine; PCP Internal Medicine; Visit Provider Internal Medicine
PROC: 0T768DZ Dilation of Right Ureter with Intraluminal Device, Via Natural or Artificial Opening Endoscopic (ICD-10-PCS; CPT 52356; principal; 2024-08-06 18:00)
DX: N13.2 Hydronephrosis with renal and ureteral calculous obstruction (principal); J18.9 Pneumonia, unspecified organism; J98.11 Atelectasis; E87.21 Acute metabolic acidosis; N17.9 Acute kidney failure, unspecified; E11.65 Type 2 diabetes mellitus with hyperglycemia; I12.9 Hypertensive chronic kidney disease with stage 1 through stage 4 chronic kidney disease, or unspecified chronic kidney disease; N18.30 Chronic kidney disease, stage 3 unspecified; E11.22 Type 2 diabetes mellitus with diabetic chronic kidney disease; W19.XXXA Unspecified fall, initial encounter; Z79.4 Long term (current) use of insulin; Z79.82 Long term (current) use of aspirin; Z79.84 Long term (current) use of oral hypoglycemic drugs; Z79.85 Long-term (current) use of injectable non-insulin antidiabetic drugs; Z79.899 Other long term (current) drug therapy
CPT/HCPCS: 52356; 36415; 70450; 71250; 72125; 74176; 80048; 80053; 81001; 82010; 82365; 82550; 82803; 82947; 83036; 83605; 83690; 83735; 83880; 84484; 85025; 85610; 87040; 87635; 88300; 93005; 97116; 97161; 99221; 99285; C1758; C1769; C2617; J0456; J0696; J1885; J1956; J2003; J2270; J2405; J2704; J3010; J3475

== ENCOUNTER → 2024-08-05 15:33 | Outpatient (BNV) | payer OTHER, SELFPAY | PROVIDERS: Admitting Provider Student in an Organized Health Care Education/Training Program; Emergency Provider Emergency Medicine; PCP Internal Medicine; Visit Provider Internal Medicine | DX: R94.31 Abnormal electrocardiogram [ECG] [EKG] (principal) | CPT/HCPCS: 93010 ==

== ENCOUNTER → 2024-08-05 19:36 | Outpatient (BNV) | payer OTHER, SELFPAY | PROVIDERS: Admitting Provider Student in an Organized Health Care Education/Training Program; Emergency Provider Emergency Medicine; PCP Internal Medicine; Visit Provider Urology | DX: N20.0 Calculus of kidney (principal); N20.1 Calculus of ureter | CPT/HCPCS: 52356; 74420; 99222 ==

== ENCOUNTER → 2024-08-05 19:36 | Outpatient (BNV) | payer OTHER, SELFPAY | PROVIDERS: Admitting Provider Student in an Organized Health Care Education/Training Program; Emergency Provider Emergency Medicine; PCP Internal Medicine; Visit Provider Student in an Organized Health Care Education/Training Program | DX: J18.9 Pneumonia, unspecified organism (principal); N17.9 Acute kidney failure, unspecified; N20.1 Calculus of ureter | CPT/HCPCS: 99223; 99232; 99239; G0180 ==

== ENCOUNTER 2024-08-14 09:54 | Outpatient (AMB) | payer OTHER, SELFPAY ==
--- NOTE | 2024-08-14 10:30 | A.OFFVIS_ITS ---
Intake Visit Reasons: Stent Removal Intake Note: Patient presents today for stent removal Urology medications: none Blood Thinner: aspirin Antibiotic Allergies: Leadership Program Associate Required: Yes Leadership Program Associate Language: Palauan Information Interpreted: non-clinical & clinical Supervisor Fleshing: Supervisor Fleshing Present Accompanied by: Daughter Allergies Sulfa (Sulfonamide Antibiotics) Allergy (Intermediate, Verified 08/16/24 21:39) RASH/ITCH sulfamethoxazole [From BACTRIM] Allergy (Intermediate, Verified 08/16/24 21:39) HIVES trimethoprim [From BACTRIM] Allergy (Intermediate, Verified 08/16/24 21:39) HIVES oxycodone [From Percocet] Allergy (Unknown, Verified 08/16/24 21:39) Unknown penicillin V Allergy (Unknown, Verified 08/16/24 21:39) Unknown Medication List - Last Reconciled 08/16/24 by CRYSTAL Carver amlodipine 5 mg PO BEDTIME aspirin (Adult Low Dose Aspirin) 81 mg PO BEDTIME atorvastatin 80 mg PO BEDTIME blood sugar diagnostic (OneTouch Ultra Test strips) As directed calcium carbonate 600 mg PO BID cefuroxime axetil 500 mg PO Q12H cholecalciferol (vitamin D3) (Vitamin D3) 50 mcg PO DAILY dulaglutide (Trulicity) 4.5 mg subcut MO@0900 furosemide 40 mg PO BID glipizide 10 mg PO DAILY hydralazine 50 mg PO BIDWM insulin glargine (Lantus Solostar U-100 Insulin) 14 units subcut BEDTIME lancets (TRUEplus Lancets) As directed metformin 1,000 mg PO BID pen needle, diabetic (UltiCare Pen Needle) As directed valsartan 320 mg PO DAILY HPI Comments Details: Yusra is a very pleasant 83-year-old Palauan-speaking female patient of Dr. Hines who was accompanied by her [id number] at today's office visit. She has a past medical history of hypertension, diabetes, nephrolithiasis, and osteoporosis. She presents to the office today for in office cystoscopy with right-sided ureteral stent removal. Of note, patient underwent cystoscopy, right retrograde, right dilatation of ureteric orifice under fluoroscopy, right ureteroscopy, laser lithotripsy, stone basketing, and right stent placement with Dr. Goldstein on 08/06/2024. In office cystoscopy was performed in right ureteral stent was removed without difficulty. In discussion with the patient and her [id number] today she discusses her longstanding history of nephrolithiasis and has undergone multiple surgical interventions in the past. We discussed at length potential causes of nephrolithiasis. She reports compliance with cefuroxime as prescribed and is due to complete her last scheduled dose later today. In office urinalysis results reviewed with the patient today. She otherwise offers no other issues or concerns at this time. [facility] Medical History Hydronephrosis of right kidney Hypertension Diabetes mellitus Gram-negative bacteremia Septic shock UTI (urinary tract infection) Calculus of kidney Osteoporosis Surgical History History of surgery Hx of hemorrhoidectomy H/O colonoscopy Hx of cystoscopy Hx of lithotripsy Hx of hysterectomy Family History Father Heart problem Mother No problems noted. 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 Review of Systems Const Reports no additional complaints Eyes Reports no additional complaints ENT Reports no additional complaints Card Reports as per HPI Resp Reports no additional complaints GI Reports no additional complaints Reports as per HPI Musc Reports no additional complaints Neuro Reports no additional complaints Psych Reports no additional complaints Endo Reports as per HPI Olu/Lymph Reports no additional complaints Aller/Immun Reports no additional complaints Physical Exam Const General: cooperative, healthy appearing, comfortable, no acute distress, well developed, alert and awake Orientation/consciousness: patient oriented x3 HEENT Head: Yes normal to inspection, Yes normocephalic and Yes atraumatic Ears: hearing grossly normal bilaterally Eyes General: appearance normal, both eyes and all related structures Neck Neck: Yes normal visual inspection and Yes trachea midline Chest Chest palpation & inspection: normal inspection of the chest Resp Effort & Inspection: normal respiratory effort and able to speak in complete sentences Cardio Rate: regular rate GI Inspection: Yes normal to inspection General: Yes no CVA tenderness External Female Exam: normal external appearance and normal appearance of the urethra Speculum Exam - Vagina: normal appearance of the vagina Back/Spine/Pelvis Back: no CVA tenderness Skin General skin exam: no rashes or lesions noted Neuro General: patient oriented x3 Extrem General: Yes normal to inspection Psych Appearance: grossly normal and well kempt Mental Status: mental status grossly normal Speech and movement: Normal speech and movement present and Clear speech present Affect: normal affect Attitude: cooperative Thought process: Normal thought process present Thought content: Normal thought content present Insight: Fair insight present (Psych) Judgement: Fair judgement present (Psych) Office Procedures Cystoscopy Consent Discussed risk and benefit or proposed procedure with the patient. Information consent for procedure given to the patient. Discussed technical aspects, risks, benefits and alternatives in full. Addressed all of the patient's questions and concerns regarding the procedure. The patient demonstrated knowledge and understanding. They wish to proceed with this procedure. Preparation The patient was prepped in the usual manner. A menagerie caretaker was present and in the room. Genitalia was prepped with betadine solution in a sterile manner. Lidocaine Jelly 2% was placed into the urethra and 16Fr flexible cystoscope was inserted into the meatus after adequate lubrication. Procedure A well lubricated 16 Eritrean cystoscope was placed No abnormality noted of urethra during placement Indwelling stent seen within bladder emerging from right ureteric orifices The stent was grasped with a 3 prong grasper and removed without difficulty The patient tolerated the procedure well [id number] with stent removal DISPOSABLE SCOPE URO-G FLEXIBLE SCOPE Procedure code (CPT) selection complete Office Meds lidocaine HCl 2 % mucosal jelly in applicator Performing Provider: CRYSTAL Carver [facility] Documented (not given) by: CRYSTAL Carver on 08/16/24 21:57 Dose Route Admin Location Dispensed Lot Number Expiration Date [facility] Ad Operations Coordinator 10 mL intra-urethral mL naproxen 500 mg tablet Performing Provider: CRYSTAL Carver [facility] Documented (not given) by: CRYSTAL Carver on 08/16/24 21:57 Dose Route Admin Location Dispensed Lot Number Expiration Date [facility] Ad Operations Coordinator 500 mg PO tab Results AMB Urinalysis, Automated UA Leukoctes 0 Reji/uL Last Edit by Jenny Blair on 08/14/24 11:07 UA Nitrite Last Edit by Jenny Blair on 08/14/24 11:07 UA Urobilinogen 0.2 mg/dL Last Edit by Jenny Blair on 08/14/24 11:07 UA Protein 0 mg/dL Last Edit by Jenny Blair on 08/14/24 11:07 UA pH 6.0 Last Edit by Jenny Blair on 08/14/24 11:07 UA Blood 25 Neto/uL Last Edit by Jenny Blair on 08/14/24 11:07 UA Specific [place] 1.015 Last Edit by Jenny Blair on 08/14/24 11:07 UA Ketone Last Edit by Jenny Blair on 08/14/24 11:07 UA Bilirubin 0 mg/dL Last Edit by Jenny Blair on 08/14/24 11:07 UA Glucose 100 mg/dL Last Edit by Jenny Blair on 08/14/24 11:07 Results Reviewed Results Reviewed: Laboratory Last Values Urine pH (Auto) 6.0 08/14/24 11:06 Specific [place] (Auto) 1.015 08/14/24 11:06 Urine Protein (Auto) 0 mg/dL 08/14/24 11:06 Glucose (UA)(Auto) 100 mg/dL 08/14/24 11:06 Urine Blood (Auto) 25 Neto/uL 08/14/24 11:06 Urine Bilirubin (Auto) 0 mg/dL 08/14/24 11:06 Urine Urobilinogen (Auto) 0.2 mg/dL 08/14/24 11:06 Leukocyte Esterase (Auto) 0 Reji/uL 08/14/24 11:06 Assessment & Plan Assessment & Plan (1) Hydronephrosis concurrent with and due to calculi of kidney and ureter: Code(s): N13.2 - Hydronephrosis with renal and ureteral calculous obstruction Category: Medical Plan In office urinalysis results reviewed with the patient today; as noted above. In office cystoscopy was performed right ureteral stent was removed without difficulty; patient tolerated procedure well. We discussed potential causes of nephrolithiasis as well as further workup to include imaging and near future 24 hour urine collection. She currently denies any bothersome urinary issues or concerns. She reports be happy with current voiding parameters. Discussed importance of completing antibiotic therapy as prescribed. We discussed the importance of managing diabetes for overall health and well- being. Discussed, educated, and stressed the importance of adequate hydration relation to nephrolithiasis as well as overall health and well-being. Will obtain renal ultrasound in 2 months. Follow-up in 2-3 months with imaging to be completed prior; or sooner with any issues, concerns, and or questions. Orders: Orders AMB Cystoscopy 08/14/24 N13.2 - Hydronephrosis with renal and ureteral calculous obstruction AMB Urinalysis Automated 08/14/24 Z13.9 - Encounter for screening, unspecified US renal BI 2 Months N20.0 - Calculus of kidney Medications: New lidocaine HCl 2% 10 mL intra-urethral ONCE 10 mL 0RF N13.2 - Hydronephrosis with renal and ureteral calculous obstruction naproxen 500 mg PO ONCE 1 tab 0RF N13.2 - Hydronephrosis with renal and uret eral calculous obstruction Patient Instructions: The patient had an opportunity to ask questions regarding the treatment plan. All questions were answered. Physical exam, labs, and imaging were discussed and reviewed in detail. As well as risks, benefits, and discussion of treatment choices. No major barriers to understanding were identified. The patient expressed understanding and agreement with the above treatment plan. The patient was made aware they should contact our office by phone for worsening of their current condition, the appearance of new symptoms, or with any questions or concerns. Compliance is encouraged with any medications and follow up testing that is ordered. It is a privilege to be allowed the opportunity to participate in? your urological care.? Again, if you have any questions or concerns If you have any questions or concerns please do not hesitate to contact me. The office is [phone]. This note is constructed using voice recognition software. While every effort has been made to ensure accuracy draw furnace tender errors may have been included. Yours sincerely, EBEN Carver Coding Level of Care Code Est Pt Level 3 (04004) Complex EM visit Add On G2211 Diagnoses Hydronephrosis concurrent with and due to calculi of kidney and ureter N13.2 CPT Codes Cystoscopy - CPT: 17192-[id number] with stent removal ([id number])
== END 2024-08-14 11:08 | disposition home or self-care (01) ==
PROVIDERS: PCP Internal Medicine; Visit Provider Nurse Practitioner Family
DX: Z13.9 Encounter for screening, unspecified (principal)

== ENCOUNTER → 2024-08-14 09:54 | Outpatient (BNVA) | payer OTHER, SELFPAY | PROVIDERS: PCP Internal Medicine; Visit Provider Nurse Practitioner Family | DX: N13.2 Hydronephrosis with renal and ureteral calculous obstruction (principal); Z46.6 Encounter for fitting and adjustment of urinary device | CPT/HCPCS: 52310; 81003; 99212 ==

== ENCOUNTER 2024-09-13 08:27 | Outpatient (REF) | payer OTHER, SELFPAY | END 2024-09-13 08:28 | disposition home or self-care (01) | LOC: HO.MAMMO 08:27 | PROVIDERS: PCP Internal Medicine; Visit Provider Internal Medicine | DX: Z12.31 Encounter for screening mammogram for malignant neoplasm of breast (principal) | CPT/HCPCS: 77063; 77067 ==

== ENCOUNTER → 2024-09-13 08:45 | Outpatient (BNV) | payer OTHER, SELFPAY | PROVIDERS: PCP Internal Medicine; Visit Provider Internal Medicine | DX: Z12.31 Encounter for screening mammogram for malignant neoplasm of breast (principal) | CPT/HCPCS: 77063; 77067 ==

== ENCOUNTER 2024-09-21 10:13 | Outpatient (REF) | payer OTHER, SELFPAY ==
--- NOTE | ~2024-09-21 | MR_ITS ---
CLINICAL HISTORY: LOCALIZED SWELLING, MASS, LUMP LT LOWER LIMB MR left lower extremity with and without gadolinium Comparison: Radiographs 06/05/2024 Findings: There is normal marrow signal. No acute fractures. There are no enhancing mass lesions. There are venous varicosities. There is mild edema within the subcutaneous fat. No soft tissue mass lesions are visualized IMPRESSION: Nonspecific subcutaneous edema possible cellulitis Venous varicosities This document has been electronically signed by: Leonardo Torres MD on 09/22/2024 07:23:41
--- OUTSIDE RECORDS SUMMARY | 2024-09-21 10:57 | XMS_ITS | Encounter Summary ---
Author Organization [employer] Address [address] [place] [address] Care Team Providers Care Director Of Labor And Delivery Name Role Phone Louie Gutierrez MD Primary Care Provide r Reason for Visit * Reason Comments Care Coordination CHW outreach for SDO H PT-1 and food needs-referral completed Encounter Details Date Type Department Care Team (Latest Contact Info) Description 09/13/2024 Patient Outreach [facility] [address] [place] [address] Louie Gutierrez MD [address] [place] [address] Care Coordination (CHW outreach for SDOH PT-1 and food needs-referral completed /) Social History Tobacco Use Types Packs/Day Years [...] Recorded Patient Health Questionnaire-2 Score 0 05/31/2024 Comments No Sex and Gender Information Value Date Recorded Sex Assigned at Female 06/21/2022 10:14 AM EDT Legal Sex Female 10:14 AM EDT Gender Identity Female 06/21/2022 10:14 AM EDT Sexual Orientation Straight 06/21/2022 10 :14 AM EDT documented as of this encounter Progress Notes * Silver Dillard - 09/13/2024 10:42 AM EST CHW Silver Dillard, placed outbound call to patient for assistance with SDOH as a referral was received by the provider. Patient's name and were confirmed. Patient screened positive for the following SDOH food insecurities. CHW referral patient to the local list of pantries in the area for help. Patient health insurance is currently medicare and CHW advice patient to connect with medicare tofollow up with the transportation. Patient verbalizes understanding, and able to agree with plan tofollow up. Patient educated on extended clinic hours on Mondays through Wednesdays, and Walk-In Urgent Care Located in [facility]. Patient provided with after-hours line for [facility], , which offer night time triage service and option to transfer to sock ironer provider if needed. documented in this encounter Plan of Treatment Upcoming Encounters Date Type Department Care Team (Late st Contact Info) Description 09/28/2024 10:45 AM EST Office Visit [facility] [address] [place] [phone] Amado Lynch MD [address] [place] [address] 12/21/2024 9:00 AM EDT Office Visit [facility] [address] [place] [address] Jennifer Fowler [address] [place] [address] documented as of this encounter Visit Diagnoses Not on filedocumented in this encounter Additional Health Concerns Assessment Noted Time PHQ-9 Depression Total Score: 1 05/31/20 1:55 PM EDT documented as of this encounter Care Teams Director Of Labor And Delivery Relationship Specialty Start Date End Date Louie Gutierrez MD [address] [place] [address] PCP - General Internal Medicine 06/13/13 Fatimah MARI 08/09/24 documented as of this encounter
--- OUTSIDE RECORDS SUMMARY | 2024-09-21 10:57 | XMS_ITS | Encounter Summary ---
Author Organization [employer] Address [address] [facility] [address] [place] [address] Care Team Providers Care Sustainability Analyst Name Role Phone Louie Gutierrez MD Primary Care Provide r Reason for Visit * Reason Comments Med Refill Encounter Details Date Type Department Care Team ([facility] st Contact Info) Description 09/01/2023 Refill [facility] [address] [place], [place] [phone] Louie Gutierrez MD [address] [place], [place] [phone] Social History Tobacco Use Types Packs/Day Years Used Date Smoking Tobacco: Never Passive Smoke Exposure: Never Smokeless Tobacco: Never Depression Answer Date Recorded Patient Health Questionnaire-9 Score 0 02/03/2023 Housing Stability Answer Date Recorded What is [...] Date Recorded Patient Health Questionnaire-2 Score 0 02/03/2023 Comments No Sex and Gender Information Value Date Recorded Sex Assigned at Female 06/21/2022 10:14 AM EDT Legal Sex Female 10:14 AM EDT Gender Identity Female 06/21/2022 10:14 AM EDT Sexual Orientation Straight 06/21/2022 10 :14 AM EDT documented as of this encounter Plan of Treatment Upcoming Encounters Date Type Department Care Team (Late st Contact Info) Description 09/28/2024 10:45 AM EST Office Visit [facility] [address] [place] [address] Amado Lynch MD [address] [place] [address] 12/21/2024 9:00 AM EDT Office Visit [facility] [address] [place] [address] Malcolm, Jennifer [address] [place] [address] documented as of this encounter Visit Diagnoses Not on filedocumented in this encounter Additional Health Concerns Assessment Noted Time PHQ-9 Depression Total Score: 0 02/04/20 23 2:31 PM EDT documented as of this encounter Care Teams Sustainability Analyst Relationship Specialty Start Date End Date Louie Gutierrez MD [address] [place] [id number] PCP - General Internal Medicine 06/13/13 [place] A 08/09/24 documented as of this encounter
--- OUTSIDE RECORDS SUMMARY | 2024-09-21 10:57 | XMS_ITS | Encounter Summary ---
Author Organization [employer] Address [address] [facility] 7 [place] [address] Care Team Providers Care Pattern Painter Name Role Phone Louie Gutierrez MD Primary Care Provide r Reason for Visit * Reason Onset Date Comments PT1 09/12/2024 Encounter Details Date Type Department Care Team ([facility] st Contact Info) Description 09/12/2024 Telephone [facility] [address] [place], [place] [phone] Louie Gutierrez MD [address] [place], [place] [phone] PT1 Social History Tobacco Use Types Packs/Day Years [...] AM EDT documented as of this encounter Miscellaneous Notes * Telephone Encounter - Alyssia Danielle - 09/12/2024 3:08 PM EST Tc from [facility] visiting nurse calling requesting PT1 Home Address verified: Y/N: Yes Provider name or facility name: [address], [address]. Escort needed: Y/N: Yes Do you have a wheelchair: Y/N: No If yes- Manual or electric: N/A Visits: (2x monthly) documented in this encounter Plan of Treatment Upcoming Encounters Date Type Department Care Team (Late st Contact Info) Description 09/28/2024 10:45 AM EST Office Visit [facility] [address] [place] [address] Amado Lynch MD [address] [place] [address] 12/21/2024 9:00 AM EDT Office Visit [facility] ADULT DENT[facility] [address] [place] [address] Jennifer Fowler [address] [place] [address] documented as of this encounter Visit Diagnoses Not on filedocumented in this encounter Additional Health Concerns Assessment Noted Time PHQ-9 Depression Total Score: 1 05/31/20 1:55 PM EDT documented as of this encounter Care Teams Pattern Painter Relationship Specialty Start Date End Date Louie Gutierrez MD [address] [facility] [place] [address] PCP - General Internal Medicine 06/13/13 Fatimah MARI 08/09/24 documented as of this encounter
--- OUTSIDE RECORDS SUMMARY | 2024-09-21 10:57 | XMS_ITS | Encounter Summary ---
Author Organization [employer] Address [address] [facility] 7t [place] [address] Care Team Providers Care Swim Instructor Name Role Phone Louie Gutierrez MD Primary Care Provide r Encounter Details Date Type Department Care Team (Late st Contact Info) Description 12/07/2022 Orders Only [facility] [address] [place], [place] [phone] Roro Gregg LPN Social History Tobacco Use Types Packs/Day Years Used Date Smoking Tobacco: Never Smokeless Tobacco: Never Comments Unknown Sex and Gender Information Value Date Recorded Sex Assigned at Female 06/21/2022 10:14 AM EDT Legal Sex Female 10:14 AM EDT Gender Identity Female 06/21/2022 10:14 AM EDT Sexual Orientation Straight 06/21/2022 10 :14 AM EDT COVID-19 Exposure Response Date Recorded In the last 10 days, have yo u been in contact with someone who was confirmed or suspected to have Coronavirus/COVID-19? No / Unsure 12/03/2022 10:11 AM EDT documented as of this encounter Plan of Treatment Upcoming Encounters Date Type Department Care Team (Late st Contact Info) Description 09/28/2024 10:45 AM EST Office Visit [facility] [address] [place] [address] Amado Lynch MD [address] [place] [address] 12/21/2024 9:00 AM EDT Office Visit [facility] ADULT DENTAL [address] [place] [address] MalcolmJennifer [address] [place] [address] documented as of this encounter Visit Diagnoses Not on filedocumented in this encounter Care Teams Swim Instructor Relationship Specialty Start Date End Date Louie Gutierrez MD [address] [place] [address] PCP - General Internal Medicine 06/13/13 Fatimah GOODWIN 08/09/24 documented as of this encounter
--- OUTSIDE RECORDS SUMMARY | 2024-09-21 10:57 | XMS_ITS | Encounter Summary ---
Author Organization [employer] Address [address] [facility] 7t [place] [address] Care Team Providers Care Medical Radiation Therapist Name Role Phone Louie Gutierrez MD Primary Care Provide r Reason for Visit * Reason Onset Date Comments Referral 09/12/2024 Encounter Details Date Type Department Care Team ([facility] st Contact Info) Description 09/12/2024 Telephone [facility] [address] [place], [place] [phone] Louie Gutierrez MD [address] [place], [place] [phone] Referral Social History Tobacco Use Types Packs/Day Years [...] encounter Miscellaneous Notes * Telephone Encounter - Jing Archibald RN - 09/17/2024 12:02 PM EST Telephone call to [facility], to give verbal order. No answer, left voicemail. Patient to call as needed. * Telephone Encounter - Alyssia Danielle - 09/12/2024 3:18 PM EST Tc from [facility] visiting nurse requesting order or referral to check recurrent left leg pain. Any questions [phone] documented in this encounter Plan of Treatment Upcoming Encounters Date Type Department Care Team (Late st Contact Info) Description 09/28/2024 10:45 AM EST Office Visit [facility] [address] [place] [address] Amado Lynch MD [address] [place] [address] 12/21/2024 9:00 AM EDT Office Visit [facility] AD[facility] [address] [place] [address] Jennifer Fowler [address] [place] [address] documented as of this encounter Visit Diagnoses Not on filedocumented in this encounter Additional Health Concerns Assessment Noted Time PHQ-9 Depression Total Score: 1 05/31/20 1:55 PM EDT documented as of this encounter Care Teams Medical Radiation Therapist Relationship Specialty Start Date End Date Louie Gutierrez MD [address] [place] [address] PCP - General Internal Medicine 06/13/13 Fatimah Fabiola 08/09/24 documented as of this encounter
--- OUTSIDE RECORDS SUMMARY | 2024-09-21 10:57 | XMS_ITS | Encounter Summary ---
Author Organization [email or web address] Address [address] [facility] 7 [place] [address] Care Team Providers Care Cable Installer Repairer Helper Name Role Phone Louie Gutierrez MD Primary Care Provide r Encounter Details Date Type Department Care Team (Latest Contact Info) Description 07/02/2022 Abstract [facility] CONVERSIONS Dental, Provider, DDS Social History Tobacco Use Types Packs/Day Years Used Date Smoking Tobacco: Never Assessed Comments Unknown Sex and Gender Information Value Date Recorded Sex Assigned at Female 06/21/2022 10:14 AM EDT Legal Sex Female 10:14 AM EDT Gender Identity Female 06/21/2022 10:14 AM EDT Sexual Orientation Straight 06/21/2022 10 :14 AM EDT documented as of this encounter Plan of Treatment Upcoming Encounters Date Type Department Care Team ( st Contact Info) Description 09/28/2024 10:45 AM EST Office Visit [facility] [address] [place] [address] Amado Lynch MD [address] [place] [address] 12/21/2024 9:00 AM EDT Office Visit [facility] ADULT DENTAL [address] [place] [address] Ulises Fowleraris [address] [place] [address] documented as of this encounter Visit Diagnoses Not on filedocumented in this encounter Care Teams Cable Installer Repairer Helper Relationship Specialty Start Date End Date Louie Gutierrez MD [address] [place] [address] PCP - General Internal Medicine 06/13/13 Fatimah MARI 08/09/24 documented as of this encounter
--- OUTSIDE RECORDS SUMMARY | 2024-09-21 10:57 | XMS_ITS | Encounter Summary ---
Author Organization [employer] Address [address] [facility] 7 [place] [address] Care Team Providers Care Adjunct Faculty Name Role Phone Louie Gutierrez MD Primary Care Provide r Encounter Details Date Type Department Care Team (Latest Contact Info) Description 10/20/2020 Abstract [facility] CONVERSIONS Dental, Provider, DDS Social History Tobacco [...] Description 09/28/2024 10:45 AM EST Office Visit [facility] [address] [place] [address] Amado Lynch MD [address] [place] [address] 12/21/2024 9:00 AM EDT Office Visit [facility] ADULT DENTAL [address] [place] [address] Ulises Fowleraris [address] [place] [address] documented as of this encounter Visit Diagnoses Not on filedocumented in this encounter Care Teams Adjunct Faculty Relationship Specialty Start Date End Date Louie Gutierrez MD [address] [place] [address] PCP - General Internal Medicine 06/13/13 Fatimah MARI 08/09/24 documented as of this encounter
--- OUTSIDE RECORDS SUMMARY | 2024-09-21 10:57 | XMS_ITS | Clinical Summary ---
Author Organization [employer] Address [address] [place] [address] Care Team Providers Care Product Support Technician Name Role Phone Louie Gutierrez MD Primary Care Provide r Allergies Active Allergy Reactions Criticality Noted Date Comments Sulfa Antibiotics 09/07/2022 Trimethoprim 09/07/2022 Medications calcium carbonate 1500 (600 Ca) MG tablet Take by mouth every 12 (twelve) hours. Active furosemide (Lasix) 40 MG tablet Take 1 tablet by mouth at bed time. 2 Active hydrALAZINE (Apresoline) 25 MG tablet Take 1 tablet by mouth every 12 (twelve) hours. 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 30 g 3 Active amLODIPine (Norvasc) 5 MG tablet Take 5 mg by mouth at bedtime. 3 Active D3 Super Strength 50 MCG (1999 UT) capsule Take 50 mcg by mouth in the morning. 3 Active acetaminophen (Tylenol) 500 MG tablet Take 2 tablets (1,000 mg) by mouth every 6 (six) hours if needed for moderate pain or fever for up to 25 doses. 50 tablet 3 Active Additional Information Patient not taking.Reported on 05/07/2024 valsartan (Diovan) 160 MG tablet TAKE 1 TABLET BY MOUTH EVERY MORNING 30 tablet 6 3 Active miconazole (Micatin) 2 % cream Apply topically 2 times daily. 56 g 1 3 Active loratadine (Claritin) 10 MG tablet TAKE 1 TABLET BY MOUTH EVERY DAY 30 tablet 6 4 Active Lantus SoloStar 100 UNIT/ML pen INJECT 14 UNITS SUBCUTANEOUSLY ONCE DAILY 15 mL 3 4 Active Trulicity 4.5 MG/0.5ML solution pen-injectorIn dications:Type 2 diabetes mellitus without complication, with long-term current use of insulin ([facility]) INJECT ONE PEN (= 4.5MG) SUBCUTANEOUSLY ONCE A WEEK DIRECTED 2 mL 11 4 Active glipiZIDE (Glucotrol) 10 MG tablet TAKE 1 TABLET BY MOUTH EVERY MORNING BEFORE A MEAL 90 tablet 4 Active Additional Information Patient not taking.Reported on 05/07/2024 Aspirin Adult Low Strength 81 MG EC tablet TAKE 1 TABLET BY MOUTH EVERY EVENING 90 tablet 3 4 Active atorvastatin (Lipitor) 80 MG tablet TAKE 1 TABLET BY MOUTH AT BEDTIME 30 tablet 6 4 Active TRUEplus Lancets 33G miscIndication s:Type 2 diabetes mellitus without complication, with long-term current use of insulin ([facility]) TEST BLOOD SUGAR THREE TIMES DAILY DIRECTED 100 each 11 4 Active lidocaine (Lidoderm) 5 % patch APPLY 1 PATCH TOPICALLY TO SKIN IN THE MORNING. LEAVE ON FOR 12 HOURS AND OFF FOR 12 HOURS DIRECTED 30 patch 2 4 Active Additional Information Patient not taking.Reported on 05/07/2024 hydrocortisone 1 % ointment Apply topically 2 times daily. 28 g 4 Active estradiol (Estrace) 0.1 MG/GM vaginal cream Insert 1 g into the vagina Once per day. 1g vaginally x 14d, then twice weekly thereafter 42.5 g 4 025 Active OneTouch Ultra Test test stripIndicatio ns:Type 2 diabetes mellitus without complication, with long-term current use of insulin ([facility]) TEST BLOOD SUGAR THREE TIMES DAILY 100 strip 3 4 Active metFORMIN (Glucophage) 1000 MG tablet TAKE 1 TABLET BY MOUTH TWICE DAILY IN THE MORNING AND IN THE EVENING WITH FOOD 180 tablet 4 Active Easy Touch Pen [place] 31G X 8 MM misc USE DIRECTED ONCE DAILY 100 each 1 4 Active Active Problems Problem Noted Date Diagnosed Date Lower leg mass, left 05/31/2024 Assessment & Plan (05/31/2024 2:17 PM EDT): Patient with c/o newly developed lump on her left lower leg, non tender, no redness, no swelling On exam there is a subtle palpable mass left lower leg 5 x 6 cm approx There is no redness, no increase in temperature. When compared to right lower extremity there is asymmetry. Plan: Plain films of left leg, MRI of left lower leg Follow up after initial testing Open fracture of tooth 01/12/2024 Preventative health care 09/01/2023 Assessment & Plan (12/01/2023 10:09 AM EDT): Mammogram: Mammo 09/05/2023Normal. Pap Smear: -pap smear wnl 2003, 2004 and 2005 with h/o hysterectomy and no abnormal paps, , no need for further pap screening Colonoscopy: 03/09/2019 showed a tubular adenoma h/o tubular adenoma 2004, as well Vaccines: Flu shot: 09/01/2023 Pneumovax, 09/12/2014 Tdap: Zostavax: 09/12/2014 Hep A immune Dexa scan: -with osteopenia December 2015 STI/HIV screen negative December 2013 Assessment & Plan (09/01/2023 9:29 AM EST): Preventative health care (V70.0). Mammogram: Mammo 08/31/2021 Normal. 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 Assessment & Plan (09/01/2023 9:37 AM EST): Pt c/o on and off dry cough Chest x-ray showed new hemidiaphragmatic elevation left side Plan: CT Chest to evaluate Dry cough 05/10/2023 Assessment & Plan (05/10/2023 1:48 PM EDT): Pt with c/o new onset of dry cough, no other associated symptoms allysno sob, no difficulty breathing no fever On exam lungs CTA bilaterally Plan: Chest x-ray Follow up if cough does not resolve or becomes productive nor if any other symptoms present Trigger middle finger of right hand 02/03/2023 Assessment & Plan (02/03/2023 2:59 PM EDT): New onset One exam, no swelling, no redness, Will refer to hand ortho Acanthosis 02/03/2023 Assessment & Plan (02/03/2023 4:02 PM EDT): S/o excision by Mian Lara SKE[facility] Pathology showed: Variable epidermal acanthosis with focal mild aypia. Clinical correlation was advised as is consideration for a rebiopsy if clinical concern persists for a neoplastic process given that there is focal keratinocytic atypia at the base of the biopsy. Seen by Dr Lynch 12/03/ who reviewed pathology and reassured pt Actinic keratosis 10/22/2022 Assessment & Plan (11/08/2022 3:56 PM EDT): Referral to dermatology sent Dermatology note: 10/22/2022 Final Diagnosis: Skin , right lower extremity, shave: - Variable epidermal acanthosis with focal mild atypia. ?? Note: The overall histologic findings are most reminscent of lichen simplex chronicus/prurigo nodularis. However, focal keratinocytic atypia is present at the base of the biopsy. Clinical correlation is advised as is consideration for a rebiopsy if clinical concern persists for a neoplastic process. Diverticular disease 08/21/2013 Osteoporosis 08/21/2013 Secondary hyperparathyroidism 08/21/2013 Tubular adenoma of colon 08/21/2013 Open-angle glaucoma 05/30/2012 Assessment & Plan (09/01/2023 9:28 AM EST): Diagnosed by [facility]. Last seen by [facility] 08/30/2023 Diabetes mellitus, type II 05/11/2012 Assessment & Plan (05/31/2024 4:01 PM EDT): Pt is here for a f/u Glucometer reviewed average 232 She is on a regimen of: Metformin XR 500 mg 2 tabs po BID, Glipizide 10 mg po daily ,Lantus 14 units sc q pm and Trulicity 4.5 mg q week She is on med boxes Hgb A1c 05/31/2024 was 13.7 from 9.1 from 8.3 Pt tells me she was vacationing in [place] and while there she was not following a diabetic diet. When reviewing her glucometer it was evident the time she was in [place] because her blood sugars were consistently high and now that she is back blood sugars have normalized Eye exam was last done on: 01/21/[address] Cotton (methods engineer) measured her IOP and was stable so he recommended to DC the eye drops she was using for a dx of Primary open angle glaucoma Microalbumin checked on : 08/26/2021 was: 4.5 Pt is not on an TANIYA inhibitor due to COUGH. She is on an ARB Valsartan 160 mg po daily Foot check risk of zero Pt reports compliance with Asa 81 mg po daily Plan: Continue current regimen, given that the reason for her elevated A1c was non compliance with diet and meds while in [place] 3 months f/u Pt advised to: adhere to diabetic diet check your blood sugars regularly check your feet on a daily basis Assessment & Plan (12/01/2023 9:58 AM EDT): Pt is here for a f/u Glucometer reviewed average 148 She is on a regimen of: Metformin XR 500 mg 2 tabs po BID, Glipizide 10 mg po daily ,Lantus 14 units sc q pm and Trulicity 4.5 mg q week She is on med boxes Hgb A1c 12/01/2023 was 9.1 from 8.3 Eye exam was last done on: 01/21/[address] Cotton (methods engineer) measured her IOP and was stable so he recommended to DC the eye drops she was using for a dx of Primary open angle glaucoma Microalbumin checked on : 08/26/2021 was: 4.5 Pt is not on an TANIYA inhibitor due to COUGH. She is on an ARB Valsartan 160 mg po daily Foot check risk of zero Pt reports compliance with Asa 81 mg po daily Plan: Continue current regimen 3 months f/u Pt advised to: adhere to diabetic diet check your blood sugars regularly check your feet on a daily basis Assessment & Plan (09/01/2023 9:25 AM EST): Pt is here for a f/u Glucometer reviewed average 120 She is on a regimen of: Metformin XR 500 mg 2 tabs po BID, Glipizide 10 mg po daily ,Lantus 14 units sc q pm and Trulicity 3 mg q week She is on med boxes Hgb A1c 05/01/2023 was 8.3 Eye exam was last done on: 01/21/[address] Cotton (methods engineer) measured her IOP and was stable so he recommended to DC the eye drops she was using for a dx of Primary open angle glaucoma Microalbumin checked on : 08/26/2021 was: 4.5 Pt is not on an TANIYA inhibitor due to COUGH. She is on an ARB Valsartan 160 mg po daily Foot check risk of zero Pt reports compliance with Asa 81 mg po daily Plan: Increase Trulicity to 4.5 mg once week 3 months f/u Pt advised to: adhere to diabetic diet check your blood sugars regularly check your feet on a daily basis Assessment & Plan (05/10/2023 2:01 PM EDT): Pt is here for a f/u Glucometer reviewed average 118 She is on a regimen of: Metformin XR 500 mg 2 tabs po BID, Glipizide 10 mg po daily ,Lantus 14 units sc q pm and Trulicity 3 mg q week She is on med boxes Hgb A1c 05/01/2023 was 7.9 Eye exam was last done on: 01/21/[address] Cotton (methods engineer) measured her IOP and was stable so he recommended to DC the eye drops she was using for a dx of Primary open angle glaucoma Microalbumin checked on : 08/26/2021 was: 4.5 Pt is not on an TANIYA inhibitor due to COUGH. She is on an ARB Valsartan 160 mg po daily Foot check risk of zero Pt reports compliance with Asa 81 mg po daily Plan: continue withy current regimen 3 months f/u Pt advised to: adhere to diabetic diet check your blood sugars regularly check your feet on a daily basis Assessment & Plan (02/03/2023 2:53 PM EDT): Pt is here for a f/u Glucometer reviewed average 123 She is on a regimen of: Metformin XR 500 mg 2 tabs po BID, Glipizide 10 mg po daily ,Lantus 14 units sc q pm and Trulicity 1.5 q week She is on med boxes Hgb A1c 02/03/2023 was 7.8 Eye exam was last done on: 01/21/[address] Cotton (methods engineer) measured her IOP and was stable so he recommended to DC the eye drops she was using for a dx of Primary open angle glaucoma Microalbumin checked on : 08/26/2021 was: 4.5 Pt is not on an TANIYA inhibitor due to COUGH. She is on an ARB Valsartan 160 mg po daily Foot check risk of zero Pt reports compliance with Asa 81 mg po daily Plan: Increase trulicity to 3 mg once a week 3 months f/u Pt advised to: adhere to diabetic diet check your blood sugars regularly check your feet on a daily basis Assessment & Plan (10/22/2022 5:46 PM EST): Patiens A1C is 7.5, it was 8.4 09/13. No adjustments were made to patients medications. Patient to continue current therapies. Depressive disorder 05/11/2012 Gastroesophageal reflux disease 05/11/2012 Hypertension 05/11/2012 Assessment & Plan (05/31/2024 2:06 PM EDT): Pt is here for a f/u BP controlled She is on a regimen of: Diovan 160 mg po daily , Hydralazine 25 mg po BID and Lasix 40 mg po daily and Amlodipine 5mg po daily was restarted by Dr Saldaña Plan: Continue regimen pt following with [facility] Most recent electrolytes, Bun and Creatinine done on: 02/11/2023 were wnl. patient advised to adhere to a low sodium diet, encouraged about medication compliance, counseled about weight loss. Of note pt had a cardiac cath at [facility] on 05/20/2009 There was NO angiographic evidence of CAD. seen in the past at [facility]. PREVIOUSLY ADDRESSED: THE INFORMATION BELOW HAS BEEN COPIED, PASTED AND UPDATED FROM PREVIOUS NOTES. Chest discomfort (R07.89). Resolved, pt ended up having an outpt stress test 05/23/2019 that was negative for ischemia. Of note pt had a cardiac cath 2008 at [facility] that was unremarkable. 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 Pt with a Hx. of ? Paget's disease of the bone, evaluated in the past by an mental health program manager (Dr Banuelos) who treated her initially with Actonel but she could not tolerate subsequently she was given an infusion of Reclast and remains on Vitamin D pt was lost for f/u with Dr Banuelos. Last visit we scheduled a f/u appointment. Pt was seen by a different Real Estate Appraiser Supervisor (Dr Ferrer)who review previous notes from Dr Banuelos and new bone scan, and lab data. She was seen on 11/08/2012 based on his impression he DID NOT think pt had Paget's disease. She was last seen by [facility]ocr[facility]ology on 02/16/2013 (Dr Ferrer) He diagnosed her with Osteoporosis and prescribed Reclast again. Recommended she stayed on Calcium and Vitamin D. He also thinks pt had secondary hyperparathyroidisms due to low Vit D levels and started supplementation. Pulmonary nodule (793.11) Repeat Chest CT done on 11/14/2013 and compared to one from 10/16/2012 showed a 3 mm pulmonary nodule, radiology did not recommend further f/u. Insomnia (780.52) Sleep study was done showing mild PAULO/severe snoring for which conservative measures were recommended I recommended : Good sleep hygiene habits, trazodone 100mg po qhs. 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 Hx of tubular adenoma. scheduled for f/u with Dr Herrera Osteoporosis, unspecified (733.00). S/p DEXA 01/15/2016 with secondary hyperparathyroidism -cont Reclast annually as per Dr. Ferrer -cont vitamin D supplementation Secondary hyperparathyroidism (of renal origin) (588.81). Under the care of Dr. Ferrer last seen 09/19/2014 Assessment & Plan (12/01/2023 9:57 AM EDT): Pt is here for a f/u BP stable She is on a regimen of: Diovan 160 mg po daily , Hydralazine 25 mg po BID and Lasix 40 mg po daily and Amlodipine 5mg po daily was restarted by Dr Saldaña Plan: Continue regimen pt following with our [facility] Most recent electrolytes, Bun and Creatinine done on: 04/02/2022 were wnl. patient advised to adhere to a low sodium diet, encouraged about medication compliance, counseled about weight loss. Of note pt had a cardiac cath at [facility] on 05/20/2009 There was NO angiographic evidence of CAD. seen in the past at [facility]. PREVIOUSLY ADDRESSED: THE INFORMATION BELOW HAS BEEN COPIED, PASTED AND UPDATED FROM PREVIOUS NOTES. Chest discomfort (R07.89). Resolved, pt ended up having an outpt stress test 05/23/2019 that was negative for ischemia. Of note pt had a cardiac cath 2008 at [facility] that was unremarkable. 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 Pt with a Hx. of ? Paget's disease of the bone, evaluated in the past by an mental health program manager (Dr Banuelos) who treated her initially with Actonel but she could not tolerate subsequently she was given an infusion of Reclast and remains on Vitamin D pt was lost for f/u with Dr Banuelos. Last visit we scheduled a f/u appointment. Pt was seen by a different Real Estate Appraiser Supervisor (Dr Ferrer)who review previous notes from Dr Banuelos and new bone scan, and lab data. She was seen on 11/08/2012 based on his impression he DID NOT think pt had Paget's disease. She was last seen by [facility]ocrinology on 02/16/2013 (Dr Ferrer) He diagnosed her with Osteoporosis and prescribed Reclast again. Recommended she stayed on Calcium and Vitamin D. He also thinks pt had secondary hyperparathyroidisms due to low Vit D levels and started supplementation. Pulmonary nodule (793.11) Repeat Chest CT done on 11/14/2013 and compared to one from 10/16/2012 showed a 3 mm pulmonary nodule, radiology did not recommend further f/u. Insomnia (780.52) Sleep study was done showing mild PAULO/severe snoring for which conservative measures were recommended I recommended : Good sleep hygiene habits, trazodone 100mg po qhs. 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 Hx of tubular adenoma. scheduled for f/u with Dr Herrera Osteoporosis, unspecified (733.00). S/p DEXA 01/15/2016 with secondary hyperparathyroidism -cont Reclast annually as per Dr. Ferrer -cont vitamin D supplementation Secondary hyperparathyroidism (of renal origin) (588.81). Under the care of Dr. Fererr last seen 09/19/2014 Assessment & Plan (09/01/2023 9:32 AM EST): Pt is here for a f/u BP stable She is on a regimen of: Diovan 160 mg po daily , Hydralazine 25 mg po BID and Lasix 40 mg po daily and Amlodipine 5mg po daily was restarted by Dr Saldaña Plan: Continue regimen pt following with our [facility] Most recent electrolytes, Bun and Creatinine done on: 04/02/2022 were wnl. patient advised to adhere to a low sodium diet, encouraged about medication compliance, counseled about weight loss. Of note pt had a cardiac cath at [facility] on 05/20/2009 There was NO angiographic evidence of CAD. seen in the past at [facility]. PREVIOUSLY ADDRESSED: THE INFORMATION BELOW HAS BEEN COPIED, PASTED AND UPDATED FROM PREVIOUS NOTES. Chest discomfort (R07.89). Resolved, pt ended up having an outpt stress test 05/23/2019 that was negative for ischemia. Of note pt had a cardiac cath 2008 at [facility] that was unremarkable. 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 Pt with a Hx. of ? Paget's disease of the bone, evaluated in the past by an mental health program manager (Dr Banuelos) who treated her initially with Actonel but she could not tolerate subsequently she was given an infusion of Reclast and remains on Vitamin D pt was lost for f/u with Dr Banuelos. Last visit we scheduled a f/u appointment. Pt was seen by a different Real Estate Appraiser Supervisor (Dr Ferrer)who review previous notes from Dr Banuelos and new bone scan, and lab data. She was seen on 11/08/2012 based on his impression he DID NOT think pt had Paget's disease. She was last seen by [facility] Endocrinology on 02/16/2013 (Dr Ferrer) He diagnosed her with Osteoporosis and prescribed Reclast again. Recommended she stayed on Calcium and Vitamin D. He also thinks pt had secondary hyperparathyroidisms due to low Vit D levels and started supplementation. Pulmonary nodule (793.11) Repeat Chest CT done on 11/14/2013 and compared to one from 10/16/2012 showed a 3 mm pulmonary nodule, radiology did not recommend further f/u. Insomnia (780.52) Sleep study was done showing mild PAULO/severe snoring for which conservative measures were recommended I recommended : Good sleep hygiene habits, trazodone 100mg po qhs. 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 Hx of tubular adenoma. scheduled for f/u with Dr Herrera Osteoporosis, unspecified (733.00). S/p DEXA 01/15/2016 with secondary hyperparathyroidism -cont Reclast annually as per Dr. Ferrer -cont vitamin D supplementation Secondary hyperparathyroidism (of renal origin) (588.81). Under the care of Dr. Ferrer last seen 09/19/2014 Assessment & Plan (02/03/2023 2:55 PM EDT): Pt is here for a f/u BP stable She is on a regimen of: Diovan 160 mg po daily , Hydralazine 25 mg po BID and Lasix 40 mg po daily and Amlodipine 5mg po daily was restarted by Dr Saldaña Plan: Continue regimen pt following with our [facility] Most recent electrolytes, Bun and Creatinine done on: 04/02/2022 were wnl. patient advised to adhere to a low sodium diet, encouraged about medication compliance, counseled about weight loss. Of note pt had a cardiac cath at [facility] on 05/20/2009 There was NO angiographic evidence of CAD. seen in the past at [facility]. PREVIOUSLY ADDRESSED: THE INFORMATION BELOW HAS BEEN COPIED, PASTED AND UPDATED FROM PREVIOUS NOTES. Hyperlipidemia, unspecified (E78.5), chronic. Televisit Most recent lipid profile from: 08/26/2021 shows a total cholesterol of: 205 triglycerides of: 187 HDL of: 40 and LDL of: 133 Currently on a regimen of: Atorvastatin 40 mg po qhs Plan: Increase Atorvastatin to 80 mg po qhs advised to try to adhere to a low cholesterol diet, counseled and educated about diet and exercise, Patient encouraged to come up with a personal goal for weight loss. Chest discomfort (R07.89). Resolved, pt ended up having an outpt stress test 05/23/2019 that was negative for ischemia. Of note pt had a cardiac cath 2008 at [facility] that was unremarkable. 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 Examination suggestive of this Plan: Nizoral shampoo, Neutrogenal Garden tar shampoo extra strength Referral to Dr Lynch for Derm clinic Right lumbar radiculopathy (724.4), Chronic. pt with pervious c/o moderate to severe right sided low back pain with radiation to her right buttock and right leg. As part of her work popeye had an MRI of LS spine on 08/27/2011 that showed a very large paracentral lateral disk herniation at l1-L2 impinging on the right L1 nerve root. Pt underwent physical therapy with excellent results. Pt was referred to a neurosurgeon (Dr Hayden) the appointment was scheduled for 02/03/2012. Pt tells me she went to the appointment but was turned away because the office had no knowledge of her referral ?. Pt denies any back pain Open-angle glaucoma, moderate stage (365.10), Chronic. Recently diagnosed by [facility]. last seen 03/10/2012. They recommended to continue to follow with dr. 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 Pt with a Hx. of ? Paget's disease of the bone, evaluated in the past by an mental health program manager (Dr Banuelos) who treated her initially with Actonel but she could not tolerate subsequently she was given an infusion of Reclast and remains on Vitamin D pt was lost for f/u with Dr Banuelos. Last visit we scheduled a f/u appointment. Pt was seen by a different Real Estate Appraiser Supervisor (Dr Ferrer)who review previous notes from Dr Banuelos and new bone scan, and lab data. She was seen on 11/08/2012nd based on his impression he DID NOT think pt had Paget's disease. She was last seen by [facility] on 02/16/2013 (Dr Ferrer) He diagnosed her with Osteoporosis and prescribed Reclast again. Recommended she stayed on Calcium and Vitamin D. He also thinks pt had secondary hyperparathyroidisms due to low Vit D levels and started supplementation. Pulmonary nodule (793.11) Repeat Chest CT done on 11/14/2013 and compared to one from 10/16/2012 showed a 3 mm pulmonary nodule, radiology did not recommend further f/u. Insomnia (780.52) Sleep study was done showing mild PAULO/severe snoring for which conservative measures were recommended I recommended : Good sleep hygiene habits, trazodone 100mg po qhs. 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 Hx of tubular adenoma. scheduled for f/u with Dr Herrera Osteoporosis, unspecified (733.00). S/p DEXA 01/15/2016 with secondary hyperparathyroidism -cont Reclast annually as per Dr. Ferrer -cont vitamin D supplementation Secondary hyperparathyroidism (of renal origin) (588.81). Under the care of Dr. Ferrer last seen 09/19/2014 Preventative health care (V70.0). Mammogram: Mammo 08/31/2021 Normal Pap Smear: -pap smear wnl 2003, 2004 and 2005 with h/o hysterectomy and no abnormal paps, , no need for further pap screening Colonoscopy: 03/09/2019 showed a tubular adenoma h/o tubular adenoma 2004, as well Vaccines: Flu shot: Pneumovax, 09/12/2014 Tdap: Zostavax: 09/12/2014 Hep A immune Dexa scan: -with osteopenia December 2015 STI/HIV screen negative December 2013 Kidney stone 05/11/2012 Lumbar radiculopathy 05/11/2012 Assessment & Plan (09/01/2023 9:33 AM EST): Pt with pervious c/o moderate to severe right sided low back pain with radiation to her right buttock and right leg. As part of her work popeye had an MRI of LS spine on 08/27/2011 that showed a very large paracentral lateral disk herniation at l1-L2 impinging on the right L1 nerve root. Pt underwent physical therapy with excellent results. Pt was referred to a neurosurgeon (Dr Hayden) the appointment was scheduled for 02/03/2012. Pt tells me she went to the appointment but was turned away because the office had no knowledge of her referral ?. Pt denies any back pain Mixed hyperlipidemia 05/11/2012 Assessment & Plan (09/01/2023 9:20 AM EST): Most recent lipid profile from: 02/11/2023 shows a total cholesterol of: Component Ref Range & Units 6 mo ago (02/11/23) 1 yr ago (01/28/22) 2 yr ago (08/26/21) 2 yr ago (08/17/21) 2 yr ago (11/10/20) Cholesterol, Total <200 mg/dL 175 130 205??High?? 236??High?? 132 HDL Cholesterol > OR = 50 mg/dL 48??Low?? 43??Low?? 40??Low?? 48??Low?? 53 Triglycerides <150 mg/dL 263??High?? 115 187??High?? 239??High?? CM 107 Comment: ?? If a non-fasting specimen was collected, consider repeat triglyceride testing on a fasting specimen if clinically indicated. Simón et al. J. of Clin. Lipidol. 2015;9:129-169. ?? LDL Cholesterol mg/dL (calc) 92 67 CM 133??High?? CM 149??High?? CM 60 CM Comment: Reference range: <100 ?? Desirable range <100 mg/dL for primary prevention; ?? <70 mg/dL for patients with CHD or diabetic patients with > or = 2 CHD risk factors. ?? LDL-C is now calculated using the Ciaran-Strong calculation, which is a validated novel method providing better accuracy than the Friedewald equation in the estimation of LDL-C. Ciaran SS et al. HITESH. 2013;310(19): 9418-6989 (http://[employer].SafetyWeb.Cirqle.nl/faq/XZQ158) Chol/HDLC Ratio <5.0 (calc) 3.6 3.0 5.1??High?? 4.9 2.5 Non-HDL Cholesterol <130 mg/dL (calc) 127 87 CM 165??High?? CM 188??High?? CM 79 CM Currently on a regimen of: Atorvastatin 40 mg po qhs Plan: Increase Atorvastatin to 80 mg po qhs advised to try to adhere to a low cholesterol diet, counseled and educated about diet and exercise, Patient encouraged to come up with a personal goal for weight loss. Resolved Problems Problem Noted Date Diagnosed Date Resolved Date Exercise counseling 02/03/2023 09/01/19 24 Encounters Date Type Department Care Team Description 09/13/[address] [facility] [address] [place] [phone] Louie Gutierrez MD Care Coordination (CHW outreach for SDOH PT-1 and food needs-referral completed /) 09/12/[address] [facility] [address] [place] [phone] Louie Gutierrez MD Referral 09/12/[address] [facility] [address] [place] [phone] Louie Gutierrez MD PT1 08/05/2024 Orders Only GENERIC EXTERNAL DATA DEPARTMENT Provider, Generic External Data 08/02/2024 9:00 AM EST Office Visit [facility] [address] [place] [phone] Herber Zelaya DMD 07/24/2024 Telephone [place] [address] [place] [address] [phone] Louie Gutierrez MD MRI LOWER LEG 07/23/[address] [facility] [address] [place] [phone] Louie Gutierrez MD 07/09/2024 11:00 AM EST Office Visit [facility] [address] [place] [address] Nathalie Herber, KASANDRA 07/09/[address] [facility] [address] [place] [address] Louie Gutierrez MD Type 2 diabetes mellitus without complication, with long-term current use of insulin ([facility]) 06/22/2024 9:00 AM EDT Office Visit [facility] [address] [place] [address] Nancy Glover Dental plaque (Primary Dx); Dental calculus; Tartar deposits on teeth from Last 3 Months Immunizations Name Administration Dates Next Due Influenza High-dose Quadriva lent Preservative Free 06/17/2022,06/04/2021 Influenza injectable quadriv alent IIV4 with preservative 06/28/2017,05/18/2016,06/17/2015 Influenza injectable quadriv alent preservative free 09/01/2023 Influenza, High Dose Seasona l, Preservative Free 05/31/2024,08/07/2019 Influenza, IIV3, injectable 05/02/2014 Influenza, Split (incl. murtaza fied surface antigen) 05/18/2013,05/11/2012 Pneumococcal Conjugate PCV 13 02/05/2016 Pneumococcal Polysaccharide PPSV23 09/12/2014 TD (adult), 2 Lf tetanus tox oid, preservative free, adsorbed 05/08/2004,04/28/1993 Tdap 03/13/2015 Zoster, Recombinant 06/17/2022 Zoster, live 09/12/2014 Social History Tobacco Use Types Packs/Day Years Used Date Smoking Tobacco: Never Passive Smoke Exposure: Never Smokeless Tobacco: Never Tobacco Cessation:Counseling Given: Not Answered Alcohol Use Standard Drinks/Week Comments Never 0 (1 standard drink = 0.6 oz pur e alcohol) Depression Answer Date Recorded Patient Health Questionnaire-9 Score 1 05/31/2024 Patient Health Questionnaire-9 Score 1 05/31/2024 Last PHQ-9: Questionnaire Data Not on file 1 Housing Stability Answer Date Recorded What is your housing situation today? I have carlos hong 06/07/[address] you li [...] Orientation Straight 06/21/2022 10 :14 AM EDT Last Filed Vital Signs Vital Sign Reading Time Taken Comments Blood Pressure 122/80 08/02/2024 8:01 AM EST Pulse 67 08/02/2024 8:01 AM EST Temperature 36.6 ??C (97.8 ??F) 06/19/2024 10:09 AM E DT Respiratory Rate 16 06/19/2024 10:09 AM EDT Oxygen Saturation 98% 06/19/2024 10:09 AM EDT Inhaled Oxygen Concentration - - Weight 68.7 kg (151 lb 6.4 oz) 06/19/2024 10:09 AM EDT Height 152.4 cm (5') 06/19/2024 10:09 AM EDT Body Mass Index 29.57 06/19/2024 10:09 AM EDT Plan of Treatment Upcoming Encounters Date Type Department Care Team (Late st Contact Info) Description 09/28/2024 10:45 AM EST Office Visit [facility] [address] [place] [address] Amado Lynch MD [address] [place] [address] 12/21/2024 9:00 AM EDT Office Visit [facility] [address] [place] [phone] Jennifer Fowler [address] [place] [address] Health Maintenance Due Date Last Done Comments Diabetes: Foot Exam 1950 Eye Exam 1951 Alcohol/Substance Use Screening 1953 RSV Patients and Patients Aged 60 years or older (1 - 1-dose 75+ series) 2016 Zoster Vaccines (3 of 3) 08/12/2022 06/17/2022, 08/23 Diabetes: Urine Protein Screening 08/26/2022 08/26/2021, 11/10/2020, 10/11/2019 Lipid Panel 02/12/2024 02/11/2023, 06/0 04/2022, 08/26/2021, Additional history exists COVID-19 Vaccine (2023- season) 2024 11/14/2020, 10/17/2020 Diabetes: Hemoglobin A1C 08/31/2024 024, 12/01/2023, 09/01/2023, Additional history exists Mammogram 09/05/2024 09/05/2023, 08/22, 08/31/2021, Additional history exists Dental Oral Exam 11/05/2024 05/07/2024, , 07/02/2022, Additional history exists Dental Prophylaxis 11/05/2024 05/07/2024, 0 09/15/2023, 07/02/2022, Additional history exists SDOH Screening 11/20/2024 11/21/2023 DTaP/Tdap/Td Vaccines (2 - Td or Tdap) 03/13/2025 03/13/2015, 05/08/2004, 04/28/1993 Dental X-Ray: Bitewings 05/08/2025 05/07/20 24, 12/01/2023, 09/15/2023, Additional history exists Depression Screening 05/31/2025 05/31/2024, 10/10/20 24 Tobacco Screening 08/02/2025 08/02/2024 Dental X-Ray: Full Mouth 05/08/2027 05/07/2024, 02/0 09/2020 Pneumococcal Vaccine: 50+ Years Completed 02/05/2016, 09/12/2014 Influenza Vaccine Completed 05/31/2024, , 06/17/2022, Additional history exists HIB Vaccines Aged Out No longer eligi ble based on patient's age to complete this topic HPV Vaccines Aged Out No longer eligi ble based on patient's age to complete this topic Hepatitis A Vaccines Aged Out No long er eligible based on patient's age to complete this topic Hepatitis B Vaccines Aged Out No long er eligible based on patient's age to complete this topic IPV Vaccines Aged Out No longer eligi ble based on patient's age to complete this topic Meningococcal Vaccine Aged Out No gaby kylah eligible based on patient's age to complete this topic RSV under 20 months Aged Out No longe r eligible based on patient's age to complete this topic Rotavirus Vaccines Aged Out No longer eligible based on patient's age to complete this topic Procedures Procedure Name Priority Date/Time Associated Diagnosis Comments FL GUIDANCE IN OR Routine 08/06/2024 5:3 0 PM EST GLUCOSE, WHOLE BLOOD Routine 08/05/2024 6:18 PM EST URINALYSIS, COMPLETE, WITH REFLEX TO CULTURE Routine 08/05/2024 6:06 PM EST LACTIC ACID LAB USE ONLY Routine 08/05/2024 6:[address] HEAD WO CONTRAST Routine 08/05/2024 4 :07 PM EST LACTIC ACID Routine 08/05/2024 3:48 PM EST VENOUS BLOOD GAS Routine 08/05/2024 2:[address] CHEST WO CONTRAST Routine 08/05/2024 1:[address] ABDOMEN PELVIS WO CONTRAST Routine 08/05/2024 1:[address] CERVICAL SPINE WO CONTRAST Routine 08/05/2024 1:46 PM EST ADJUNCTIVE GENERAL SERVICES - PROFESSIONAL VISITS - CASE PRESENTATION, SUBSEQUENT TO DETAILED AND EXTENSIVE TREATMENT PLANNING Routine 08/02/2024 9:00 AM EST 2,3,4,13,14,15 MAXILLARY PARTIAL DENTURE - RESIN BASE (INCLUDING, RETENTIVE/CLASPING MATERIALS, RESTS, AND TEETH) Routine 08/02/2024 9:00 AM EST WAX TRY IN Routine 07/09/2024 11:00 AM EST COMPREHENSIVE METABOLIC PANEL Routine 07/03/2024 8:38 AM EST Primary hypertension ORAL HYGIENE INSTRUCTIONS Routine 06/22/2024 9:00 AM EDT Dental plaque Dental calculus Tartar deposits on teeth LR PERIODONTAL SCALING AND ROOT PLANING - 4 OR MORE TEETH PER QUADRANT Routine 06/22/2024 9:00 AM EDT Dental plaque Dental calculus Tartar deposits on teeth UR PERIODONTAL SCALING AND ROOT PLANING - 4 OR MORE TEETH PER QUADRANT Routine 06/22/2024 9:00 AM EDT Dental plaque Dental calculus Tartar deposits on teeth POCT GLYCATED HEMOGLOBIN, TOTAL Routine 05/31/2024 1:57 PM EDT Type 2 diabetes mellitus without complication, with long-term current use of insulin ([facility]) PROPHYLAXIS - ADULT Routine 05/07/2024 8 :00 AM EDT Dental calculus Dental plaque DIAGNOSTIC - DIAGNOSTIC IMAGING - INTRAORAL - COMPREHENSIVE SERIES OF RADIOGRAPHIC IMAGES Routine 05/07/2024 8:00 AM EDT PERIODIC ORAL EVALUATION - ESTABLISHED PATIENT Routine 05/07/2024 8:00 AM EDT BI MAMMOGRAM SCREENING TOMOSYNTHESIS BILATERAL Routine 09/05/2023 8:45 AM EST LIPID PANEL WITH REFLEX TO DIRECT LDL Routine 02/11/2023 9:28 AM EDT Type 2 diabetes mellitus without complication, with long-term current use of insulin ([facility]) ALBUMIN, RANDOM URINE W/CREATININE Routine 08/26/2021 8:03 AM EST from Last 3 Months or Most Recently Relevant to Health Maintenance Results * FL Guidance in OR (08/06/2024 5:30 PM EST) Anatomical Region Laterality Modality X-Ray Angiograph y 08/06/2024 5:30 PM EST Narrative 09/20/2024 7:47 AM EST ? [facility] ?[address] ?[place] [address] ? Fluoroscopy Report ? Signed ? Patient: Rodriguez,Yusra J ?MR#: [id number] ?? 3 ? : 1940 ?Acct:[id number] ? Age/Sex: 83 / F ?ADM Date: 08/05/24 ? Loc: HO.S3 ?376-1 ? Attending Dr: Reid Lambert MD ? Ordering Physician: Adalberto Goldstein MD ?? Date of Service: 08/06/24 ?? Procedure(s): FL guidance in OR ?? Accession Number(s): [id number] ? cc: Adalberto Goldstein MD; Louie Narayanan MD ? EXAMINATION: ?? FLUORO GUIDANCE IN OR ? CLINICAL INFORMATION: ?? Intraoperative guidance cystoscopy. ? COMPARISON: ?? None available. ? TECHNIQUE: ?? Fluoroscopy supervised by: Dr. Adalberto Goldstein. ?? Fluoroscopy time: 15.0 seconds. ?? Cumulative Dose: 4.04 mGy. ?? DAP: No DAP available on this machine. ?? Images: 7. ? FINDINGS: ?? A cystoscope is present. Contrast is injected into the right ureter. A ?? guidewire is passed. Interval placement of a internal indwelling ?? double-J stent with the upper portion in a lower pole calyx and the ?? distal portion coiled in the bladder. ? FL/FL guidance in OR ?? IMPRESSION: ?? Fluoroscopy during procedure. Please see procedure report for ?? additional information. ? Electronically signed by: ??Benedict Junior MD ??09/20/2024 07:44 AM EST ?? RP ? Dictated By: ?Benedict Junior MD ? Signed By: ?<Electronically signed by Benedict Junior MD in OV> ? 09/20/24 0744 ? DD/ 1730 ? TD/TT: 08/06/24 1815 ? Club Director: SS ? Procedure Note Raimundo, Image - 09/20/[address] [address] Fluoroscopy Report Signed Patient: Yusra Rodriguez JMR#: [id number] 3 : 2Acct:[id number] Age/Sex: 83 / FADM Date: 08/05/24 Loc: .S3 376-[address]: Reid Lambert MD Ordering Physician: Adalberto Goldstein MD Date of Service: 08/06/24 Procedure(s): FL guidance in OR Accession Number(s): [id number] cc: Adalberto Goldstein MD; Louie Narayanan MD EXAMINATION: FLUORO GUIDANCE IN OR CLINICAL INFORMATION: Intraoperative guidance cystoscopy. COMPARISON: None available. TECHNIQUE: Fluoroscopy supervised by: Dr. Adalberto Goldstein. Fluoroscopy time: 15.0 seconds. Cumulative Dose: 4.04 mGy. DAP: No DAP available on this machine. Images: 7. FINDINGS: A cystoscope is present. Contrast is injected into the right ureter. A guidewire is passed. Interval placement of a internal indwelling double-J stent with the upper portion in a lower pole calyx and the distal portion coiled in the bladder. FL/FL guidance in OR IMPRESSION: Fluoroscopy during procedure. Please see procedure report for additional information. Electronically signed by: Benedict Junior MD 09/20/2024 07:44 AM EST Dictated By: Benedict Junior MD Signed By: <Electronically signed by Benedict Junior MD in OV> 09/20/24 0744 DD/ 1730 TD/TT: 08/06/24 1815 Club Director: SS us [facility] External Provider IMG IR PROCEDURES Edited Result - Final * (ABNORMAL) Glucose, Whole Blood (08/05/2024 6:18 PM EST) Glucose, Whole Blood 238(H) 60 - 115 mg/dL [facility] Comment:METER #: [id number] 08/05/2024 6:18 PM EST 08/05/2024 6:21 PM EST us Generic External Data Provider LAB BLOOD ORDERAB LES Final Result [facility] [address] [place] [phone] * (ABNORMAL) Urinalysis, Complete, with Reflex to Culture (08/05/2024 6:06 PM EST) Color Urine Yellow [facility] Appearance Urine Clear [facility] PH 5.0 5.0 - 9.0 [facility] Glucose Urine UA >=1000(A) Negative mg/dL [facility] Urine Blood Negative Negative [facility] Specific [place] - Urine 1.010 1.005 - 1.025 [facility] Urine Protein Negative Neg-Trace mg/dL [facility] Urine Ketones Negative Negative mg/dL [facility] Nitrite Urine Negative Negative [facility] Leukocyte Esterase Urine Negative Negative [facility] RBC Urine 0-2 0 - 2 /HPF [facility] Urine WBC 0-5 0 - 5 /HPF [facility] Urine Squamous Epithelial Cell 0-2 0 - 2 /HPF [facility] Urine Bacteria Trace None Seen [facility] Hyaline Casts, Urine 11-20 0 - 2 /LPF [facility] 08/05/2024 6:06 PM EST 08/05/2024 6:11 PM EST Narrative [facility] - 08/05/2024 6:34 PM EST [id number], Clean Catch us Generic External Data Provider LAB URINE ORDERAB LES Final Result [facility] [address] [place] [phone] * (ABNORMAL) Lactic Acid (08/05/2024 6:05 PM EST) Lactic Acid 3.4(HH) 0.5 - 2.0 mmol/L [facility] Comment:Critical value for t est(s): LACTA Results called to bigg back by: ELISE Person calling: LEONA Date: 08/05/24Time: 184 08/05/2024 6:05 PM EST 08/05/2024 6:11 PM EST us Generic External Data Provider LAB BLOOD ORDERAB LES Final Result [facility] [address] [place] [address] [phone] * CT Head w/o Contrast (08/05/2024 4:07 PM EST) Anatomical Region Laterality Modality Head, Neck Computed Tomogra phy 08/05/2024 4:07 PM EST Narrative 08/05/2024 4:50 PM EST ? [facility] ?[address] ?[place] [address] ? CT Scan Report ? Signed ? Patient: Yusra Rodriguez ?MR#: [id number] ?? 3 ? : 1940 ?Acct:[id number] ? Age/Sex: 83 / F ?ADM Date: 08/05/24 ? Loc: HO.ED ? Attending Dr: ? Ordering Physician: Segundo Crum ?? Date of Service: 08/05/24 ?? Procedure(s): CT head/brain wo IV con ?? Accession Number(s): [id number] ? cc: Louie Narayanan MD; Segundo Crum ? EXAMINATION: ?? CT HEAD WITHOUT CONTRAST ? CLINICAL INFORMATION: ?? Fall head strike ? COMPARISON: ?? CT scan of the head July 2019 ? TECHNIQUE: ?? Contiguous axial imaging was performed from the skull base to vertex ?? without intravenous administration of contrast. ? This CT examination was performed using dose optimization techniques as ?? appropriate, variously including the following: ?? *Automated exposure control ?? *Adjustment of mA and/or kV according to patient size (this includes ?? techniques or standardized protocols for targeted exams where dose is ?? matched to indication/reason for exam; i.e. extremities or head) ?? *Use of iterative reconstruction technique ? DLP: ?? 673 mGy-cm ? FINDINGS: ?? Soft tissues and osseous structures: Normal. ? There is no intracranial mass hemorrhage or cerebral edema ? Ventricles and sulci normal. ?? No extra-axial fluid collection. ?? Sinuses and mastoid air cells clear ? CT/CT head/brain wo IV con ?? IMPRESSION: ?? No acute intracranial pathology. ? Electronically signed by: ??Brenden Goldsmith MD ??08/05/2024 04:47 PM ?? EST RP ? Dictated By: ?Brenden Goldsmith MD ? Signed By: ?<Electronically signed by Brenden Goldsmith MD in OV> ?08/05/241646 ? DD/ 1607 ? TD/TT: 08/05/24 1639 ? Club Director: YADIEL ? Procedure Note Donnubia, Ralph - 08/05/[address] [place] [address] [address] Scan Report Signed Patient: Yusra Rodriguez JMR#: [id number] 3 : 1940cct:[id number] Age/Sex: 83 / FADM Date: 08/05/24 Loc: HO.ED Attending Dr: Ordering Physician: Segundo Crum Date of Service: 08/05/24 Procedure(s): CT head/brain wo IV con Accession Number(s): [id number] cc: Louie Narayanan MD; Segundo Crum EXAMINATION: CT HEAD WITHOUT CONTRAST CLINICAL INFORMATION: Fall head strike COMPARISON: CT scan of the head July 2019 TECHNIQUE: Contiguous axial imaging was performed from the skull base to vertex without intravenous administration of contrast. This CT examination was performed using dose optimization techniques as appropriate, variously including the following: *Automated exposure control *Adjustment of mA and/or kV according to patient size (this includes techniques or standardized protocols for targeted exams where dose is matched to indication/reason for exam; i.e. extremities or head) *Use of iterative reconstruction technique DLP: 673 mGy-cm FINDINGS: Soft tissues and osseous structures: Normal. There is no intracranial mass hemorrhage or cerebral edema Ventricles and sulci normal. No extra-axial fluid collection. Sinuses and mastoid air cells clear CT/CT head/brain wo IV con IMPRESSION: No acute intracranial pathology. Electronically signed by: Brenden Goldsmith MD 08/05/2024 04:47 PM EST RP Dictated By: Brenden Goldsmith MD Signed By: <Electronically signed by Brenden Goldsmith MD inOV> 08/05/24 1647 DD/ 1607 TD/TT: 08/05/24 1639 Club Director: YADIEL [facility] External Provider IMG CT PROCEDURES Edited Result - Final * (ABNORMAL) Lactic Acid (08/05/2024 3:48 PM EST) Lactic Acid 3.3(HH) 0.5 - 2.0 mmol/L [facility] Comment:Critical value for t est(s): LACTA Results called to bigg back by: VADIM Person calling: Fidus Writer Date: 08/05/24Time: 1619 08/05/2024 3:48 PM EST 08/05/2024 3:56 PM EST Generic External Data Provider LAB BLOOD ORDERAB LES Final Result [facility] [address] [place] [phone] * VENOUS BLOOD GAS (08/05/2024 2:40 PM EST) VBG pH 7.42 7.32 - 7.43 [facility] Comment:METER #: [id number] additional_comment: CbGentilj VBG PCO2 39 mmHg [facility] Comment:METER #: [id number] additional_comment: CbGentilj VBG PO2 39 mmHg [facility] Comment:METER #: [id number] additional_comment: CbGentilj VBG Base Excess 1.5 mmol/L [facility] Comment:METER #: [id number] additional_comment: Radhika VBG HCO3 25 22 - 26 mmol/L [facility] Comment:METER #: [id number] additional_comment: Radhika O2 Sat, Charli 66.0 % [facility] Comment:METER #: [id number] additional_comment: CbNorma 08/05/2024 2:40 PM EST 08/05/2024 2:45 PM EST us Generic External Data Provider LAB BLOOD ORDERAB LES Final Result [facility] [address] [facility] [place] [address] [phone] * CT Cervical Spine w/o Contrast (08/05/2024 1:46 PM EST) Anatomical Region Laterality Modality Spine, C-spine Computed Tomogra phy 08/05/2024 1:46 PM EST Narrative 08/05/2024 4:54 PM EST ? [facility] ?[address] ?[place] [address] ? CT Scan Report ? Signed ? Patient: Yusra Rodriguez ?MR#: [id number] ?? 3 ? : 1940 ?Acct:[id number] ? Age/Sex: 83 / F ?ADM Date: 08/05/24 ? Loc: HO.ED ? Attending Dr: ? Ordering Physician: Segundo Crum ?? Date of Service: 08/05/24 ?? Procedure(s): CT cervical spine wo IV con ?? Accession Number(s): [id number] ? cc: Louie Narayanan MD; Segundo Crum ? EXAMINATION: ?? CT CERVICAL SPINE WITHOUT CONTRAST ? CLINICAL INFORMATION: ?? Fall neck pain ? COMPARISON: ?? X-ray of the cervical spine January 2023 ? TECHNIQUE: ?? The scans cervical spine was performed with reconstruction imaging ?? performed at the acquisition workstation. ? This CT examination was performed using dose optimization techniques as ?? appropriate, variously including the following: ?? *Automated exposure control ?? *Adjustment of mA and/or kV according to patient size (this includes ?? techniques or standardized protocols for targeted exams where dose is ?? matched to indication/reason for exam; i.e. extremities or head) ?? *Use of iterative reconstruction technique ? DLP: ?? 356 mGy-cm ? FINDINGS: ?? The vertebral bodies normally aligned with normal height. ?? Multilevel degenerative disc changes present at the C3-C4 through C6-C7 ?? levels manifested by varying degrees of disc space narrowing and ?? endplate osteophytes. There is some ossification also noted along the ?? anterior longitudinal ligament. ? Facet arthrosis on the left side of the 3 and C3-C4 level ? There is no fracture. Location. The surrounding soft tissues are normal. ?? The lung apices are clear ? CT/CT cervical spine wo IV con ?? IMPRESSION: ?? 1. ??Cervical spondylosis of the cervical spine. ?? 2. ??No acute abnormality. ? Fleischner guidelines were followed. ? Electronically signed by: ??Brenden Goldsmith MD ??08/05/2024 04:51 PM ?? EST RP ? Dictated By: ?Brenden Goldsmith MD ? Signed By: ?<Electronically signed by Brenden Goldsmith MD in OV> ?08/05/24 1651 ? DD/ 1346 ? TD/TT: 08/05/24 1639 ? Club Director: WG ? Procedure Note Raimundo, Ralph - 08/05/[address] [address] [address] Scan Report Signed Patient: Yusra Rodriguez JMR#: [id number] 3 : 2Acct:[id number] Age/Sex: 83 / FADM Date: 08/05/24 Loc: HO.ED Attending Dr: Ordering Physician: Segundo Crum Date of Service: 08/05/24 Procedure(s): CT cervical spine wo IV con Accession Number(s): [id number] cc: Louie Narayanan MD; Segundo Crum EXAMINATION: CT CERVICAL SPINE WITHOUT CONTRAST CLINICAL INFORMATION: Fall neck pain COMPARISON: X-ray of the cervical spine January 2023 TECHNIQUE: The scans cervical spine was performed with reconstruction imaging performed at the acquisition workstation. This CT examination was performed using dose optimization techniques as appropriate, variously including the following: *Automated exposure control *Adjustment of mA and/or kV according to patient size (this includes techniques or standardized protocols for targeted exams where dose is matched to indication/reason for exam; i.e. extremities or head) *Use of iterative reconstruction technique DLP: 356 mGy-cm FINDINGS: The vertebral bodies normally aligned with normal height. Multilevel degenerative disc changes present at the C3-C4 through C6-C7 levels manifested by varying degrees of disc space narrowing and endplate osteophytes. There is some ossification also noted along the anterior longitudinal ligament. Facet arthrosis on the left side of the 3 and C3-C4 level There is no fracture. Location. The surrounding soft tissues are normal. The lung apices are clear CT/CT cervical spine wo IV con IMPRESSION: 1. Cervical spondylosis of the cervical spine. 2. No acute abnormality. Fleischner guidelines were followed. Electronically signed by: Brenden Goldsmith MD 08/05/2024 04:51 PM EST Dictated By: Brenden Goldsmith MD Signed By: <Electronically signed by Brenden Goldsmith MD inOV> 08/05/24 1651 DD/ 1346 TD/TT: 08/05/24 1639 Club Director: YADIEL [facility] External Provider IMG CT PROCEDURES Edited Result - Final * CT Chest w/o Contrast (08/05/2024 1:46 PM EST) Anatomical Region Laterality Modality Body, Chest Computed Tomogra phy 08/05/2024 1:46 PM EST Narrative 08/05/2024 5:11 PM EST ? [facility] ?[address] ?[place] [address] ? CT Scan Report ? Signed ? Patient: Rodriguez,Yusra J ?MR#: [id number] ?? 3 ? : 1940 ?Acct:[id number] ? Age/Sex: 83 / F ?ADM Date: 08/05/24 ? Loc: HO.ED ? Attending Dr: ? Ordering Physician: Segundo Crum ?? Date of Service: 08/05/24 ?? Procedure(s): CT chest wo IV con ?? Accession Number(s): [id number] ? cc: Louie Narayanan MD; Segundo Crum ? EXAMINATION: ?? CT CHEST, ABDOMEN AND PELVIS WITHOUT CONTRAST ? CLINICAL INFORMATION: ?? Fall. Trauma. ? COMPARISON: ?? CT chest dated 10/05/2023. CT abdomen/pelvis dated 04/02/2022. ? TECHNIQUE: ?? Contiguous axial thin section helical images of the chest, abdomen and ?? pelvis were performed without IV contrast. The data set was reformatted ?? in the coronal and sagittal planes and reviewed on an independent ?? workstation. ? This CT examination was performed using dose optimization techniques as ?? appropriate, variously including the following: ?? *Automated exposure control ?? *Adjustment of mA and/or kV according to patient size (this includes ?? techniques or standardized protocols for targeted exams where dose is ?? matched to indication/reason for exam; i.e. extremities or head) ?? *Use of iterative reconstruction technique ? DLP: ?? 2140 mGy-cm. ? FINDINGS: ? LUNGS: Mild bilateral dependent atelectasis with more focal opacities ?? in the left lingula and left lower lobe, which could represent ?? atelectasis versus early pneumonia. No pulmonary nodule or mass. The ?? central airways are patent. ? PLEURA: No pleural effusion or pneumothorax. No pleural mass or ?? thickening. ? MEDIASTINUM: No cardiomegaly. No significant pericardial effusion. ?? Pleural thickening along the left heart is unchanged. No thoracic ?? aortic dilatation. No significant mediastinal or hilar lymphadenopathy. ? CORONARY ARTERY CALCIFICATION: None present. ? CHEST WALL/AXILLA: No lymphadenopathy. ? THYROID: Unremarkable ? LIVER, GALLBLADDER, AND BILIARY TREE: Normal size, shape, and ?? attenuation. No focal hepatic lesion. No intra or extrahepatic biliary ?? ductal dilatation. Status post cholecystectomy. ? PANCREAS: Atrophic with partial fatty replacement. ? SPLEEN: Unremarkable. ? ADRENAL GLANDS: Unremarkable. ? KIDNEYS AND URETERS: Normal size, shape, and attenuation. Distal right ?? ureteral stone at the level of the pelvic outlet measuring up to 0.5 x ?? 0.3 cm located approximately 7.7 cm proximal to the ureterovesicular ?? junction. Minimal right hydroureter and hydronephrosis with minimal ?? adjacent fat stranding. No left ureteral stone. Tiny nonobstructing ?? bilateral renal stones measuring up to 0.2 cm within the left lower ?? pole. No left-sided hydroureter or hydronephrosis. ? BLADDER: Unremarkable. ? GASTROINTESTINAL TRACT: No small or large bowel obstruction. Descending ?? colon and sigmoid diverticulosis without evidence of acute ?? diverticulitis. No significant bowel wall thickening or inflammatory ?? change. The appendix is not well seen. No right lower quadrant ?? inflammatory change to suggest acute diverticulitis. ? PERITONEAL CAVITY: No intra-abdominal free air, free fluid, mass, or ?? organized fluid collection. ? ABDOMINAL WALL: No significant abdominal wall hernia. ? LYMPH NODES: No significant lymphadenopathy. ? VASCULAR: No abdominal aortic dilatation. Scattered atherosclerotic ?? calcifications. The IVC is unremarkable. ? PELVIC VISCERA: The uterus appears surgically absent. ? OSSEOUS STRUCTURES: No lytic or blastic osseous lesion. ? CT/CT chest wo IV con ?? IMPRESSION: ?? 1. Bilateral dependent atelectasis with more focal opacities in the ?? left lingula and left lower lobe, which could represent atelectasis ?? versus early pneumonia. No pleural effusion or pneumothorax. ?? 2. Distal right ureteral stone at the level of the pelvic outlet ?? measuring up to 0.5 cm. Minimal right hydroureter and hydronephrosis ?? with minimal adjacent fat stranding. Tiny nonobstructing bilateral ?? renal stones. No left-sided hydronephrosis or hydroureter. ?? 3. Diverticulosis without evidence of acute diverticulitis. No small or ?? large bowel obstruction. Appendix not seen. No right lower quadrant ?? inflammatory change to suggest acute diverticulitis. ?? 4. No acute fracture or dislocation. ? Electronically signed by: ??Simba Turner MD ??08/05/2024 05:08 PM EST ?? RP ? Dictated By: ?Simba Turner MD ? Signed By: ?<Electronically signed by Simba Turner MD in OV> ?08/05/24 1708 ? DD/ 1346 ? TD/TT: 08/05/24 1639 ? Club Director: SR ? Procedure Note Donotuseinterpreter, Image - 08/05/[address] [address] [address] Scan Report Signed Patient: Yusra Rodriguez JMR#: [id number] 3 : 1940cct:[id number] Age/Sex: 83 / FADM Date: 08/05/24 Loc: HO.ED Attending Dr: Ordering Physician: Segundo Crum Date of Service: 08/05/24 Procedure(s): CT chest wo IV con Accession Number(s): [id number] cc: Louie Narayanan MD; Segundo Crum EXAMINATION: CT CHEST, ABDOMEN AND PELVIS WITHOUT CONTRAST CLINICAL INFORMATION: Fall. Trauma. COMPARISON: CT chest dated 10/05/2023. CT abdomen/pelvis dated 04/02/2022. TECHNIQUE: Contiguous axial thin section helical images of the chest, abdomen and pelvis were performed without IV contrast. The data set was reformatted in the coronal and sagittal planes and reviewed on an independent workstation. This CT examination was performed using dose optimization techniques as appropriate, variously including the following: *Automated exposure control *Adjustment of mA and/or kV according to patient size (this includes techniques or standardized protocols for targeted exams where dose is matched to indication/reason for exam; i.e. extremities or head) *Use of iterative reconstruction technique DLP: 2140 mGy-cm. FINDINGS: LUNGS: Mild bilateral dependent atelectasis with more focal opacities in the left lingula and left lower lobe, which could represent atelectasis versus early pneumonia. No pulmonary nodule or mass. The central airways are patent. PLEURA: No pleural effusion or pneumothorax. No pleural mass or thickening. MEDIASTINUM: No cardiomegaly. No significant pericardial effusion. Pleural thickening along the left heart is unchanged. No thoracic aortic dilatation. No significant mediastinal or hilar lymphadenopathy. CORONARY ARTERY CALCIFICATION: None present. CHEST WALL/AXILLA: No lymphadenopathy. THYROID: Unremarkable LIVER, GALLBLADDER, AND BILIARY TREE: Normal size, shape, and attenuation. No focal hepatic lesion. No intra or extrahepatic biliary ductal dilatation. Status post cholecystectomy. PANCREAS: Atrophic with partial fatty replacement. SPLEEN: Unremarkable. ADRENAL GLANDS: Unremarkable. KIDNEYS AND URETERS: Normal size, shape, and attenuation. Distal right ureteral stone at the level of the pelvic outlet measuring up to 0.5 x 0.3 cm located approximately 7.7 cm proximal to the ureterovesicular junction. Minimal right hydroureter and hydronephrosis with minimal adjacent fat stranding. No left ureteral stone. Tiny nonobstructing bilateral renal stones measuring up to 0.2 cm within the left lower pole. No left-sided hydroureter or hydronephrosis. BLADDER: Unremarkable. GASTROINTESTINAL TRACT: No small or large bowel obstruction. Descending colon and sigmoid diverticulosis without evidence of acute diverticulitis. No significant bowel wall thickening or inflammatory change. The appendix is not well seen. No right lower quadrant inflammatory change to suggest acute diverticulitis. PERITONEAL CAVITY: No intra-abdominal free air, free fluid, mass, or organized fluid collection. ABDOMINAL WALL: No significant abdominal wall hernia. LYMPH NODES: No significant lymphadenopathy. VASCULAR: No abdominal aortic dilatation. Scattered atherosclerotic calcifications. The IVC is unremarkable. PELVIC VISCERA: The uterus appears surgically absent. OSSEOUS STRUCTURES: No lytic or blastic osseous lesion. CT/CT chest wo IV con IMPRESSION: 1. Bilateral dependent atelectasis with more focal opacities in the left lingula and left lower lobe, which could represent atelectasis versus early pneumonia. No pleural effusion or pneumothorax. 2. Distal right ureteral stone at the level of the pelvic outlet measuring up to 0.5 cm. Minimal right hydroureter and hydronephrosis with minimal adjacent fat stranding. Tiny nonobstructing bilateral renal stones. No left-sided hydronephrosis or hydroureter. 3. Diverticulosis without evidence of acute diverticulitis. No small or large bowel obstruction. Appendix not seen. No right lower quadrant inflammatory change to suggest acute diverticulitis. 4. No acute fracture or dislocation. Electronically signed by: Simba Turner MD 08/05/2024 05:08 PM EST Dictated By: Simba Turner MD Signed By: <Electronically signed by Simba Turner MD in OV> 08/05/24 1708 DD/ 1346 TD/TT: 08/05/24 1639 Club Director: SR [facility] External Provider IMG CT PROCEDURES Edited Result - Final * CT Abdomen Pelvis w/o Contrast (08/05/2024 1:46 PM EST) Anatomical Region Laterality Modality Body, Pelvis, Abdomen Computed T omography 08/05/2024 1:46 PM EST Narrative 08/05/2024 5:11 PM EST ? [facility] ?[address] ?[place] [address] ? CT Scan Report ? Signed ? Patient: Yusra Rodriguez ?MR#: [id number] ?? 3 ? : 1940 ?Acct:[id number] ? Age/Sex: 83 / F ?ADM Date: 08/05/24 ? Loc: HO.ED ? Attending Dr: ? Ordering Physician: Segundo Crum ?? Date of Service: 08/05/24 ?? Procedure(s): CT abdomen pelvis wo IV con ?? Accession Number(s): [id number] ? cc: Louie Narayanan MD; Segundo Crum ? EXAMINATION: ?? CT CHEST, ABDOMEN AND PELVIS WITHOUT CONTRAST ? CLINICAL INFORMATION: ?? Fall. Trauma. ? COMPARISON: ?? CT chest dated 10/05/2023. CT abdomen/pelvis dated 04/02/2022. ? TECHNIQUE: ?? Contiguous axial thin section helical images of the chest, abdomen and ?? pelvis were performed without IV contrast. The data set was reformatted ?? in the coronal and sagittal planes and reviewed on an independent ?? workstation. ? This CT examination was performed using dose optimization techniques as ?? appropriate, variously including the following: ?? *Automated exposure control ?? *Adjustment of mA and/or kV according to patient size (this includes ?? techniques or standardized protocols for targeted exams where dose is ?? matched to indication/reason for exam; i.e. extremities or head) ?? *Use of iterative reconstruction technique ? DLP: ?? 2140 mGy-cm. ? FINDINGS: ? LUNGS: Mild bilateral dependent atelectasis with more focal opacities ?? in the left lingula and left lower lobe, which could represent ?? atelectasis versus early pneumonia. No pulmonary nodule or mass. The ?? central airways are patent. ? PLEURA: No pleural effusion or pneumothorax. No pleural mass or ?? thickening. ? MEDIASTINUM: No cardiomegaly. No significant pericardial effusion. ?? Pleural thickening along the left heart is unchanged. No thoracic ?? aortic dilatation. No significant mediastinal or hilar lymphadenopathy. ? CORONARY ARTERY CALCIFICATION: None present. ? CHEST WALL/AXILLA: No lymphadenopathy. ? THYROID: Unremarkable ? LIVER, GALLBLADDER, AND BILIARY TREE: Normal size, shape, and ?? attenuation. No focal hepatic lesion. No intra or extrahepatic biliary ?? ductal dilatation. Status post cholecystectomy. ? PANCREAS: Atrophic with partial fatty replacement. ? SPLEEN: Unremarkable. ? ADRENAL GLANDS: Unremarkable. ? KIDNEYS AND URETERS: Normal size, shape, and attenuation. Distal right ?? ureteral stone at the level of the pelvic outlet measuring up to 0.5 x ?? 0.3 cm located approximately 7.7 cm proximal to the ureterovesicular ?? junction. Minimal right hydroureter and hydronephrosis with minimal ?? adjacent fat stranding. No left ureteral stone. Tiny nonobstructing ?? bilateral renal stones measuring up to 0.2 cm within the left lower ?? pole. No left-sided hydroureter or hydronephrosis. ? BLADDER: Unremarkable. ? GASTROINTESTINAL TRACT: No small or large bowel obstruction. Descending ?? colon and sigmoid diverticulosis without evidence of acute ?? diverticulitis. No significant bowel wall thickening or inflammatory ?? change. The appendix is not well seen. No right lower quadrant ?? inflammatory change to suggest acute diverticulitis. ? PERITONEAL CAVITY: No intra-abdominal free air, free fluid, mass, or ?? organized fluid collection. ? ABDOMINAL WALL: No significant abdominal wall hernia. ? LYMPH NODES: No significant lymphadenopathy. ? VASCULAR: No abdominal aortic dilatation. Scattered atherosclerotic ?? calcifications. The IVC is unremarkable. ? PELVIC VISCERA: The uterus appears surgically absent. ? OSSEOUS STRUCTURES: No lytic or blastic osseous lesion. ? CT/CT abdomen pelvis wo IV con ?? IMPRESSION: ?? 1. Bilateral dependent atelectasis with more focal opacities in the ?? left lingula and left lower lobe, which could represent atelectasis ?? versus early pneumonia. No pleural effusion or pneumothorax. ?? 2. Distal right ureteral stone at the level of the pelvic outlet ?? measuring up to 0.5 cm. Minimal right hydroureter and hydronephrosis ?? with minimal adjacent fat stranding. Tiny nonobstructing bilateral ?? renal stones. No left-sided hydronephrosis or hydroureter. ?? 3. Diverticulosis without evidence of acute diverticulitis. No small or ?? large bowel obstruction. Appendix not seen. No right lower quadrant ?? inflammatory change to suggest acute diverticulitis. ?? 4. No acute fracture or dislocation. ? Electronically signed by: ??Simba Turner MD ??08/05/2024 05:08 PM EST ?? RP ? Dictated By: ?Simba Turner MD ? Signed By: ?<Electronically signed by Simba Turner MD in OV> ?08/05/24 1708 ? DD/ 1346 ? TD/TT: 08/05/24 1639 ? Club Director: SR ? Procedure Note Raimundo, Image - 08/05/[address] [address] [address] Scan Report Signed Patient: Yusra Rodriguez JMR#: [id number] 3 : 2Acct:[id number] Age/Sex: 83 / FADM Date: 08/05/24 Loc: HO.ED Attending Dr: Ordering Physician: Segundo Crum Date of Service: 08/05/24 Procedure(s): CT abdomen pelvis wo IV con Accession Number(s): [id number] cc: Louie Narayanan MD; Segundo Crum EXAMINATION: CT CHEST, ABDOMEN AND PELVIS WITHOUT CONTRAST CLINICAL INFORMATION: Fall. Trauma. COMPARISON: CT chest dated 10/05/2023. CT abdomen/pelvis dated 04/02/2022. TECHNIQUE: Contiguous axial thin section helical images of the chest, abdomen and pelvis were performed without IV contrast. The data set was reformatted in the coronal and sagittal planes and reviewed on an independent workstation. This CT examination was performed using dose optimization techniques as appropriate, variously including the following: *Automated exposure control *Adjustment of mA and/or kV according to patient size (this includes techniques or standardized protocols for targeted exams where dose is matched to indication/reason for exam; i.e. extremities or head) *Use of iterative reconstruction technique DLP: 2140 mGy-cm. FINDINGS: LUNGS: Mild bilateral dependent atelectasis with more focal opacities in the left lingula and left lower lobe, which could represent atelectasis versus early pneumonia. No pulmonary nodule or mass. The central airways are patent. PLEURA: No pleural effusion or pneumothorax. No pleural mass or thickening. MEDIASTINUM: No cardiomegaly. No significant pericardial effusion. Pleural thickening along the left heart is unchanged. No thoracic aortic dilatation. No significant mediastinal or hilar lymphadenopathy. CORONARY ARTERY CALCIFICATION: None present. CHEST WALL/AXILLA: No lymphadenopathy. THYROID: Unremarkable LIVER, GALLBLADDER, AND BILIARY TREE: Normal size, shape, and attenuation. No focal hepatic lesion. No intra or extrahepatic biliary ductal dilatation. Status post cholecystectomy. PANCREAS: Atrophic with partial fatty replacement. SPLEEN: Unremarkable. ADRENAL GLANDS: Unremarkable. KIDNEYS AND URETERS: Normal size, shape, and attenuation. Distal right ureteral stone at the level of the pelvic outlet measuring up to 0.5 x 0.3 cm located approximately 7.7 cm proximal to the ureterovesicular junction. Minimal right hydroureter and hydronephrosis with minimal adjacent fat stranding. No left ureteral stone. Tiny nonobstructing bilateral renal stones measuring up to 0.2 cm within the left lower pole. No left-sided hydroureter or hydronephrosis. BLADDER: Unremarkable. GASTROINTESTINAL TRACT: No small or large bowel obstruction. Descending colon and sigmoid diverticulosis without evidence of acute diverticulitis. No significant bowel wall thickening or inflammatory change. The appendix is not well seen. No right lower quadrant inflammatory change to suggest acute diverticulitis. PERITONEAL CAVITY: No intra-abdominal free air, free fluid, mass, or organized fluid collection. ABDOMINAL WALL: No significant abdominal wall hernia. LYMPH NODES: No significant lymphadenopathy. VASCULAR: No abdominal aortic dilatation. Scattered atherosclerotic calcifications. The IVC is unremarkable. PELVIC VISCERA: The uterus appears surgically absent. OSSEOUS STRUCTURES: No lytic or blastic osseous lesion. CT/CT abdomen pelvis wo IV con IMPRESSION: 1. Bilateral dependent atelectasis with more focal opacities in the left lingula and left lower lobe, which could represent atelectasis versus early pneumonia. No pleural effusion or pneumothorax. 2. Distal right ureteral stone at the level of the pelvic outlet measuring up to 0.5 cm. Minimal right hydroureter and hydronephrosis with minimal adjacent fat stranding. Tiny nonobstructing bilateral renal stones. No left-sided hydronephrosis or hydroureter. 3. Diverticulosis without evidence of acute diverticulitis. No small or large bowel obstruction. Appendix not seen. No right lower quadrant inflammatory change to suggest acute diverticulitis. 4. No acute fracture or dislocation. Electronically signed by: Simba Turner MD 08/05/2024 05:08 PM EST Dictated By: Simba Turner MD Signed By: <Electronically signed by Simba Turner MD in OV> 08/05/24 1708 DD/ 1346 TD/TT: 08/05/24 1639 Club Director: SR us [facility] External Provider IMG CT PROCEDURES Edited Result - Final * (ABNORMAL) Comprehensive Metabolic Panel (07/03/2024 8:38 AM EST) Sodium 137 135 - 145 mmol/L [facility] Potassium 4.1 3.3 - 5.1 mmol/L [facility] Chloride 104 96 - 108 mmol/L [facility] Carbon Dioxide 25 22 - 29 mmol/L [facility] Anion Gap 12 12 - 20 [facility] Urea Nitrogen (BUN) 16 9 - 16 mg/dL [facility] Creatinine, Serum 0.89 0.5 - 1.4 mg/dL [facility] Estimated Glomerular Filt Rate >60 [facility] Comment:Chronic Kidney Disea se: Estimated GFR < 60 mL/min/1.03s3Fctbrz Kidney Disease: Estimated GFR < 15 mL/min/1.73m2 Glucose 271(H) 60 - 115 mg/dL [facility] Calcium 8.5 8.4 - 10.2 mg/dL [facility] Bilirubin, Total 0.4 0.0 - 1.0 mg/dL [facility] Aspartate Amino Transferase 15 5 - 31 U/L [facility] Alanine Aminotransferase 23 0 - 31 U/L [facility] Total Protein 7.4 6.5 - 8.0 g/dL [facility] Albumin Level 4.0 3.5 - 5.0 g/dL [facility] Alkaline Phosphatase 115 39 - 117 U/L [facility] Blood Venous blood specimen / Unknown 07/03/2024 8:38 AM EST 07/03/2024 8:38 AM EST us Louie Whalen MD LAB BLOOD ORDERABLES Final Result [facility] [address] [place] [phone] * (ABNORMAL) POCT HGB A1C (05/31/2024 1:57 PM EDT) Hemoglobin A1C 13.7(A) 4.0 - 6.0 % QC Media Lot # [id number] Lot# Expiration Date [id number] Blood 05/31/2024 1:57 PM EDT us Louie Whalen MD POINT OF CARE TEST EN TER/EDIT ORDERABLES Final Result * BI Mammogram Screening Tomosynthesis Bilateral (09/05/2023 8:45 AM EST) Anatomical Region Laterality Modality Breast Bilateral Mammography 09/05/2023 8:45 AM EST Narrative 09/24/2023 5:27 AM EST ? [facility] ? [address] ?[place] [address] ? Mammography Report ? Signed ? Patient: Rodriguez,Yusra J ?MR#: [id number] ?? 3 ? : 1940 ?Acct:[id number] ? Age/Sex: 82 / F ?ADM Date: 09/05/23 ? Loc: HO.MAMMO ? Attending Dr: Louie Narayanan MD ? Ordering Physician: Louie Narayanan MD ?Resu ?? lts: 1Negative ? Date of Service: 09/05/23 ?Follow Up: 1 Year From Orig ?? inal Mammogram ? Procedure(s): MM tomosynthesis screening BI ?? Accession Number(s): [id number] ? cc: Louie Narayanan MD ? EXAMINATION: ?? MM SCREENING DIGITAL BREAST TOMOSYNTHESIS, BILATERAL ? CLINICAL INFORMATION: ? Screening. Asymptomatic. ? COMPARISON: ?? Mammography: This study is compared with prior exams dating back to ?? 2019. ? TECHNIQUE: ?? Digital breast tomosynthesis is performed in both the craniocaudal and ?? mediolateral oblique views along with computer-aided detection (CAD). ?? Synthesized 2D images are generated from the tomosynthesis. ? FINDINGS: ?? There are scattered areas of fibroglandular density (ACR BI-RADS breast ?? composition Category b). ? There are no significant masses, abnormal calcifications, or other ?? abnormalities. ? MM/MM tomosynthesis screening BI ?? IMPRESSION: ?? No mammographic evidence of malignancy. ? ASSESSMENT: ? BI-RADS BI-RADS 1 - Negative ? RECOMMENDATION: ?? Routine annual mammography screening. ? 1 year F/U ? This examination should not preclude the clinical evaluation of a ?? suspicious palpable abnormality. ? This patient's information was entered into a reminder system with a ?? target due date for their next mammogram. ? Dictated By: ?Karen Stubbs MD ? Signed By: ?<Electronically signed by Karen Stubbs MD in OV> ? 09/24/2323 ? DD/ 0845 ? TD/TT: ? Club Director: ? Procedure Note Donjaspreetter, Image - 09/24/2023 [facility] [address] [place] [address] Mammography Report Signed Patient: Yusra Rodriguez JMR#: [id number] 3 : 2Acct:[id number] Age/Sex: 82 / FADM Date: 09/05/23 Loc: [place] Attending Dr: Louie Narayanan MD Ordering Physician: Louie Narayanan MDResu lts: 1Negative Date of Service: 09/05/23Follow Up: 1 Year From Orig inal Mammogram Procedure(s): MM tomosynthesis screening BI Accession Number(s): [id number] cc: Louie Narayanan MD EXAMINATION: MM SCREENING DIGITAL BREAST TOMOSYNTHESIS, BILATERAL CLINICAL INFORMATION: Screening. Asymptomatic. COMPARISON: Mammography: This study is compared with prior exams dating back to 2019. TECHNIQUE: Digital breast tomosynthesis is performed in both the craniocaudal and mediolateral oblique views along with computer-aided detection (CAD). Synthesized 2D images are generated from the tomosynthesis. FINDINGS: There are scattered areas of fibroglandular density (ACR BI-RADS breast composition Category b). There are no significant masses, abnormal calcifications, or other abnormalities. MM/MM tomosynthesis screening BI IMPRESSION: No mammographic evidence of malignancy. ASSESSMENT: BI-RADS BI-RADS 1 - Negative RECOMMENDATION: Routine annual mammography screening. 1 year F/U This examination should not preclude the clinical evaluation of a suspicious palpable abnormality. This patient's information was entered into a reminder system with a target due date for their next mammogram. Dictated By: Karen Stubbs MD Signed By: <Electronically signed by Karen Stubbs MD in OV> 09/24/23 0523 DD/ 0845 TD/TT: Club Director: Louie Whalen MD IMG BI PROCEDURES Fin al Result * (ABNORMAL) Lipid Panel with Reflex to Direct LDL (02/11/2023 9:28 AM EDT) Cholesterol, Total 175 <200 mg/dL [facility] HDL Cholesterol 48(L) > OR = 50 mg/dL [facility] Triglycerides 263(H) <150 mg/dL [facility] Comment: If a non-fasting specimen was collected, consider repeat triglyceride testing on a fasting specimen if clinically indicated. Simón et al. J. of Clin. Lipidol. 2015;9:129-169. LDL Cholesterol 92 mg/dL (calc) [facility] Comment: Reference range: <100 Desirable range <100 mg/dL for primary prevention; ?? <70 mg/dL for patients with CHD or diabetic patients with > or = 2 CHD risk factors. LDL-C is now calculated using the Christa calculation, which is a validated novel method providing better accuracy than the Friedewald equation in the estimation of LDL-C. Ciaran SS et al. HITESH. 2013;310(19): 1891-5551 (http://education.LoiLo/faq/LHY873) Chol/HDLC Ratio 3.6 <5.0 (calc) [facility] Non-HDL Cholesterol 127 <130 mg/dL (calc) [facility] Comment: For patients with diabetes plus 1 major ASCVD risk factor, treating to a non-HDL-C goal of <100 mg/dL (LDL-C of <70 mg/dL) is considered a therapeutic option. 02/11/2023 9:28 AM EDT 02/11/2023 9:29 AM EDT Narrative [facility] - 02/11/2023 7:45 PM EDT FASTING:NO FASTING: NO Louie Whalen MD LAB BLOOD ORDERABLES Final Result Performing Organization Address [facility] de Phone Number [address], [place] [address] [facility] [address] [place] [address] * ALBUMIN, RANDOM URINE W/CREATININE (08/26/2021 8:03 AM EST) Microalbumin Urine 4.5 See Note: mg/dL [facility] Comment: Reference Range: ?? Reference Range Not established Microalb/Creat Ratio 28 <30 mcg/mg creat [facility] Comment: ?? The ADA defines abnormalities in albumin excretion as follows: ?? Albuminuria Category ?Result (mcg/mg creatinine) ?? Normal to Mildly increased ?? <30 Moderately increased ? 30-299 ?? Severely increased ? > OR = 300 ?? The ADA recommends that at least two of three specimens collected within a 3-6 month period be abnormal before considering a patient to be within a diagnostic category. Creatinine, Urine 161 20 - 275 mg/dL [facility] 08/26/2021 8:03 AM EST us Louie Whalen MD LAB URINE ORDERABLES Final Result Performing Organization Address [facility]/State/[facility] Co de Phone Number [facility] [address] [place] [phone], from Last 3 Months or Most Recently Relevant to Health Maintenance Insurance DENTAL - [facility] Care Teams Product Support Technician Relationship Specialty Start Date End Date Louie Gutierrez MD [address] [place] [address] [place] [address] PCP - General Internal Medicine 06/13/13 [place] MARI 08/09/24
[2024-09-21] MEDS: gadobutroL 7.5 ML VIAL IVPUSH (11:49)
== END 2024-09-21 10:14 | disposition home or self-care (01) ==
LOC: HO.MRI 10:13
PROVIDERS: PCP Internal Medicine; Visit Provider Internal Medicine
DX: R22.42 Localized swelling, mass and lump, left lower limb (principal)
CPT/HCPCS: 73720; A9585

== ENCOUNTER → 2024-09-21 11:00 | Outpatient (BNV) | payer OTHER, SELFPAY | PROVIDERS: PCP Internal Medicine; Visit Provider Radiology Diagnostic Radiology | DX: I83.92 Asymptomatic varicose veins of left lower extremity (principal); R60.9 Edema, unspecified | CPT/HCPCS: 73720 ==

== ENCOUNTER 2024-10-26 08:24 | Outpatient (REF) | payer OTHER, SELFPAY ==
--- OUTSIDE RECORDS SUMMARY | 2024-10-26 08:52 | XMS_ITS | Encounter Summary ---
Author Organization [employer] Address [address] [place] [address] Care Team Providers Care Data Sme Name Role Phone Louie Gutierrez MD Primary Care Provide r Reason for Visit * Reason Onset Date Comments Chart Prep 09/27/2024 Encounter Details Date Type Department Care Team ([facility] st Contact Info) Description 09/27/2024 Telephone [facility] MEDICINE [address], [place] [phone] Louie Gutierrez MD [address] [place], [place] [phone] Chart Prep Social History Tobacco Use Types Packs/Day Years [...] encounter Miscellaneous Notes * Telephone Encounter - Marcela Conway [place] - 09/27/2024 1:10 PM EST Chart Prep Labs: done Images: done Vaccines due: Covid Due, RSV in Pharmacy Due, and Shingles in pharmacy Due Referrals: Not Applicable Screenings: Eye Exam and Foot Exam Overdue care gaps: Sbirt and SDOH documented in this encounter Plan of Treatment Upcoming Encounters Date Type Department Care Team (Late st Contact Info) Description 12/21/2024 9:00 AM EDT Office Visit [facility] ADULT DENTAL [address] [place] [phone] Jennifer Fowler [address] [place] [address] 01/17/2025 10:00 AM EDT Office Visit [facility] MEDICINE [address] [place] [address] Louie Gutierrez MD [address] [place] [address] documented as of this encounter Visit Diagnoses Not on filedocumented in this encounter Additional Health Concerns Assessment Noted Time PHQ-9 Depression Total Score: 1 05/31/20 24 1:55 PM EDT documented as of this encounter Care Teams Data Sme Relationship Specialty Start Date End Date Louie Gutierrez MD [address] [place] [address] PCP - General Internal Medicine 06/13/13 [place] MARI 08/09/24 documented as of this encounter
--- OUTSIDE RECORDS SUMMARY | 2024-10-26 08:52 | XMS_ITS | Clinical Summary ---
Author Organization [employer] Address [address] [facility] [address] [place] [address] Care Team Providers Care Alumnae Secretary Name Role Phone Louie Gutierrez MD Primary Care Provide r Allergies Active Allergy Reactions Criticality Noted Date Comments Sulfa Antibiotics 09/07/2022 Trimethoprim 09/07/2022 Medications calcium carbonate 1500 (600 Ca) MG tablet Take by mouth every 12 (twelve) hours. Active furosemide (Lasix) 40 MG tablet Take 1 tablet by mouth at bed time. 022 Active hydrALAZINE (Apresoline) 25 MG tablet Take 1 tablet by mouth every 12 (twelve) hours. Active triamcinolone (Kenalog) 0.1 % ointmentIndic ations:Allerg ic contact dermatitis due to adhesives Apply topically 2 times daily. 30 g 023 Active amLODIPine (Norvasc) 5 MG tablet Take 5 mg by mouth at bedtime. 023 Active D3 Super Strength 50 MCG (1999 UT) capsule Take 50 mcg by mouth in the morning. 023 Active valsartan (Diovan) 160 MG tablet TAKE 1 TABLET BY MOUTH EVERY MORNING 30 tablet 6 023 Active loratadine (Claritin) 10 MG tablet TAKE 1 TABLET BY MOUTH EVERY DAY 30 tablet 6 024 Active Trulicity 4.5 MG/0.5ML solution pen-injectorI ndications:Ty pe 2 diabetes mellitus without complication, with long-term current use of insulin ([facility]) INJECT ONE PEN (= 4.5MG) SUBCUTANEOUSLY ONCE A WEEK DIRECTED 2 mL 11 024 Active glipiZIDE (Glucotrol) 10 MG tablet TAKE 1 TABLET BY MOUTH EVERY MORNING BEFORE A MEAL 90 tablet Active Additional Information Patient not taking.Reported on 05/07/2024 Aspirin Adult Low Strength 81 MG EC tablet TAKE 1 TABLET BY MOUTH EVERY EVENING 90 tablet 3 024 Active atorvastatin (Lipitor) 80 MG tablet TAKE 1 TABLET BY MOUTH AT BEDTIME 30 tablet 6 Active TRUEplus Lancets 33G miscIndicatio ns:Type 2 diabetes mellitus without complication, with long-term current use of insulin ([facility]) TEST BLOOD SUGAR THREE TIMES DAILY DIRECTED 100 each 11 Active estradiol (Estrace) 0.1 MG/GM vaginal cream Insert 1 g into the vagina Once per day. 1g vaginally x 14d, then twice weekly thereafter 42.5 g 024 2024 Active OneTouch Ultra Test test stripIndicati ons:Type 2 diabetes mellitus without complication, with long-term current use of insulin ([facility]) TEST BLOOD SUGAR THREE TIMES DAILY 100 strip 3 024 Active metFORMIN (Glucophage) 1000 MG tablet TAKE 1 TABLET BY MOUTH TWICE DAILY IN THE MORNING AND IN THE EVENING WITH FOOD 180 tablet 024 Active Easy Touch Pen Oscoda 31G X 8 MM misc USE DIRECTED ONCE DAILY 100 each 1 024 Active econazole nitrate 1 % creamIndicati ons:Intertrig o Apply topically 2 times daily. 30 g 1 025 Active hydrocortison e 2.5 % creamIndicati ons:Intertrig o Apply topically 2 times daily. 20 g 025 Active insulin glargine (Lantus SoloStar) 100 UNIT/ML penIndication s:Type 2 diabetes mellitus without complication, with long-term current use of insulin ([facility]) Inject 16 Units under the skin at bedtime. 15 mL 3 025 Active miconazole (Micatin) 2 % creamIndicati ons:Tinea Apply topically 2 times daily. 56 g 1 025 Active acetaminophen (Tylenol) 500 MG tablet Take 2 tablets (1,000 mg) by mouth every 6 (six) hours if needed for moderate pain or fever for up to 25 doses. 50 tablet 023 2024 Discontinued(T herapy completed) miconazole (Micatin) 2 % cream Apply topically 2 times daily. 56 g 1 023 2024 Discontinued(R eorder (will not trigger notification to Pharmacy)) Lantus SoloStar 100 UNIT/ML pen INJECT 14 UNITS SUBCUTANEOUSLY ONCE DAILY 15 mL 3 024 2024 Discontinued(R eorder (will not trigger notification to Pharmacy)) lidocaine (Lidoderm) 5 % patch APPLY 1 PATCH TOPICALLY TO SKIN IN THE MORNING. LEAVE ON FOR 12 HOURS AND OFF FOR 12 HOURS DIRECTED 30 patch 2 024 2024 Discontinued(T herapy completed) hydrocortison e 1 % ointment Apply topically 2 times daily. 28 g 024 2024 Discontinued Active Problems Problem Noted Date Diagnosed Date Venous (peripheral) insufficiency 10/09/2024 Assessment & Plan (10/09/2024 10:52 AM EST): Being followed by Cardiology dr Saucedo, who recommended laser ablation, done 07/2024 Lower leg mass, left 05/31/2024 Assessment & Plan (10/09/2024 10:57 AM EST): Patient with c/o newly developed lump on her left lower leg, non tender, no redness, no swelling MRI of left lower leg showed: IMPRESSION: Nonspecific subcutaneous edema possible cellulitis Venous varicosities Assessment & Plan (05/31/2024 2:17 PM EDT): [...] initial testing Open fracture of tooth 01/12/2024 health care 09/01/2023 Assessment & Plan (12/01/2023 10:09 AM EDT): Mammogram: Mammo 09/05/2023Normal. 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 Last seen by [facility] 08/30/2023 Diabetes mellitus, type II 05/11/2012 Assessment & Plan (10/09/2024 3:45 PM EST): Pt is here for a f/u She is on a regimen of: Metformin XR 500 mg 2 tabs po BID, Glipizide 10 mg po daily ,Lantus 14 units sc q pm and Trulicity 4.5 mg q week She is on med Drive Hgb A1c 10/09/2024 : 9.3 from 13.7 from 9.1 from 8.3 Glucometer shows readings as low as 98 Eye exam was last done on: 01/21/[address] Cotton ([employer]) measured her IOP and was stable so he recommended to DC the eye drops she was using for a dx of Primary open angle glaucoma Microalbumin checked on : 08/26/2021 was: 4.5 Pt is not on an TANIYA inhibitor due to COUGH. She is on an ARB Valsartan 160 mg po daily . Will order Foot check risk of zero Pt reports compliance with Asa 81 mg po daily Plan: Continue current regimen 3 months f/u Pt advised to: adhere to diabetic diet check your blood sugars regularly check your feet on a daily basis Assessment & Plan (05/31/2024 4:01 PM EDT): [...] Pt tells me she was vacationing in [place] and while there she was not following a diabetic diet. When reviewing her glucometer it was evident the time she was in [place] because her blood sugars were consistently high and now that she is back blood sugars have normalized Eye exam was last done on: 01/21/[address] Cotton ([employer]) measured her IOP and was stable so [...] compliance with diet and meds while in [place] 3 months f/u Pt advised to: adhere [...] last done on: 01/21/[address] Cotton ([employer]) measured her IOP and was stable so [...] last done on: 01/21/[address] Cotton ([employer]) measured her IOP and was stable so [...] last done on: 01/21/[address] Cotton ([employer]) measured her IOP and was stable so [...] last done on: 01/21/[address] Cotton ([employer]) measured her IOP and was stable so [...] disease 05/11/2012 Hypertension 05/11/2012 Assessment & Plan (10/09/2024 10:56 AM EST): Pt is here for a f/u BP controlled She is on a regimen of: Diovan 160 mg po daily , Hydralazine 25 mg po BID and Lasix 40 mg po daily and Amlodipine 5mg po daily was restarted by Dr Saldaña Plan: Continue regimen pt following with our [facility] Most recent electrolytes, Bun and Creatinine done on: Lab Results Component Value Date NA 137 07/03/2024 NA 135 02/11/2023 K 4.1 07/03/2024 K 3.8 02/11/2023 CL 104 07/03/2024 CL 102 02/11/2023 BUN 16 07/03/2024 BUN 18 02/11/2023 CREATININE 0.89 07/03/2024 CREATININE 0.92 02/11/2023 were wnl. patient advised to adhere to a low sodium diet, encouraged about medication compliance, counseled about weight loss. Of note pt had a cardiac cath at [facility] on 05/20/2009 There was NO angiographic evidence of CAD. seen in the past at [facility]. PREVIOUSLY ADDRESSED: THE INFORMATION BELOW HAS BEEN COPIED, PASTED AND UPDATED FROM PREVIOUS NOTES. Chest discomfort (R07.89). Resolved, pt ended up having an outpt stress test 05/23/2019 that was negative for ischemia. Of note pt had a cardiac cath 2008 at [facility] that was unremarkable. 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 Pt with a Hx. of ? Paget's disease of the bone, evaluated in the past by an documentation improvement specialist (Dr Banuelos) who treated her initially with Actonel but she could not tolerate subsequently she was given an infusion of Reclast and remains on Vitamin D pt was lost for f/u with Dr Banuelos. Last visit we scheduled a f/u appointment. Pt was seen by a different Emt (Dr Ferrer)who review previous notes from Dr Banuelos and new bone scan, and lab data. She was seen on 11/08/2012nd based on his impression he DID NOT think pt had Paget's disease. She was last seen by [facility] Endocrinology on 02/16/2013 (Dr Ferrer) He [...] (780.52) Sleep study was done showing mild PAUOL/severe snoring for which conservative measures were recommended I recommended : Good sleep hygiene habits, trazodone 100mg po qhs. Osteoporosis, unspecified (733.00). S/p DEXA 01/15/2016 with secondary hyperparathyroidism -cont Reclast annually as per Dr. Ferrer -cont vitamin D supplementation Secondary hyperparathyroidism (of renal origin) (588.81). Under the care of Dr. Ferrer last seen 09/19/2014 Assessment & Plan (05/31/2024 2:06 PM EDT): [...] note pt had a cardiac cath at [facility] on 05/20/2009 There was NO angiographic evidence of CAD. seen in the past at [facility]. PREVIOUSLY ADDRESSED: THE INFORMATION BELOW HAS BEEN COPIED, PASTED AND UPDATED FROM PREVIOUS NOTES. Chest discomfort (R07.89). Resolved, pt ended up having an outpt stress test 05/23/2019 that was negative for ischemia. Of note pt had a cardiac cath 2008 at [facility] that was unremarkable. 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 Pt with a Hx. of ? Paget's disease of the bone, evaluated in the past by an documentation improvement specialist (Dr Banuelos) who treated her initially with Actonel but she could not tolerate subsequently she was given an infusion of Reclast and remains on Vitamin D pt was lost for f/u with Dr Banuelos. Last visit we scheduled a f/u appointment. Pt was seen by a different Emt (Dr Ferrer)who review previous notes from Dr Banuelos and new bone scan, and lab data. She was seen on 11/08/2012 based on his impression he DID NOT think pt had Paget's disease. She was last seen by [facility] Endocrinology on 02/16/2013 (Dr Ferrer) He [...] note pt had a cardiac cath at [facility] on 05/20/2009 There was NO angiographic evidence of CAD. seen in the past at [facility]. PREVIOUSLY ADDRESSED: THE INFORMATION BELOW HAS BEEN COPIED, PASTED AND UPDATED FROM PREVIOUS NOTES. Chest discomfort (R07.89). Resolved, pt ended up having an outpt stress test 05/23/2019 that was negative for ischemia. Of note pt had a cardiac cath 2008 at [facility] that was unremarkable. 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 Pt with a Hx. of ? Paget's disease of the bone, evaluated in the past by an documentation improvement specialist (Dr Banuelos) who treated her initially with Actonel but she could not tolerate subsequently she was given an infusion of Reclast and remains on Vitamin D pt was lost for f/u with Dr Banuelos. Last visit we scheduled a f/u appointment. Pt was seen by a different Emt (Dr Ferrer)who review previous notes from Dr Banuelos and new bone scan, and lab data. She was seen on 11/08/2012nd based on his impression he DID NOT think pt had Paget's disease. She was last seen by [facility] Endocrinology on 02/16/2013 (Dr Ferrer) He [...] Ferrer last seen 09/19/2014 Assessment & Plan (09/01/2023 [...] note pt had a cardiac cath at [facility] on 05/20/2009 There was NO angiographic evidence of CAD. seen in the past at [facility]. PREVIOUSLY ADDRESSED: THE INFORMATION BELOW HAS BEEN COPIED, PASTED AND UPDATED FROM PREVIOUS NOTES. Chest discomfort (R07.89). Resolved, pt ended up having an outpt stress test 05/23/2019 that was negative for ischemia. Of note pt had a cardiac cath 2008 at [facility] that was unremarkable. 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 Pt with a Hx. of ? Paget's disease of the bone, evaluated in the past by an documentation improvement specialist (Dr Banuelos) who treated her initially with Actonel but she could not tolerate subsequently she was given an infusion of Reclast and remains on Vitamin D pt was lost for f/u with Dr Banuelos. Last visit we scheduled a f/u appointment. Pt was seen by a different Emt (Dr Ferrer)who review previous notes from Dr Banuelos and new bone scan, and lab data. She was seen on 11/08/2012 based on his impression he DID NOT think pt had Paget's disease. She was last seen by [facility] Endocrinology on 02/16/2013 (Dr Ferrer) He [...] note pt had a cardiac cath at [facility] on 05/20/2009 There was NO angiographic evidence of CAD. seen in the past at [facility]. PREVIOUSLY ADDRESSED: THE INFORMATION BELOW HAS BEEN [...] pt had a cardiac cath 2008 at [facility] that was unremarkable. 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 Examination suggestive of this Plan: Nizoral shampoo, Neutrogenal [place] tar shampoo extra strength Referral to Dr Lynch for Derm clinic Right lumbar radiculopathy (724.4), Chronic. pt with pervious c/o moderate to severe right sided low back pain with radiation to her right buttock and right leg. As part of her work yup had an MRI of LS spine on [...] moderate stage (365.10), Chronic. Recently diagnosed by [facility]. last seen 03/10/2012. They recommended to continue to follow with dr. 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 Pt with a Hx. of ? Paget's disease of the bone, evaluated in the past by an documentation improvement specialist (Dr Banuelos) who treated her initially with Actonel but she could not tolerate subsequently she was given an infusion of Reclast and remains on Vitamin D pt was lost for f/u with Dr Banuelos. Last visit we scheduled a f/u appointment. Pt was seen by a different Emt (Dr Ferrer)who review previous notes from Dr [...] care of Dr. Ferrer last seen 09/19/2014 health care (V70.0). Mammogram: Mammo 08/31/2021 Normal Pap Smear: -pap smear wnl 2002, 2003 and 2004 with h/o hysterectomy and no abnormal paps, , no need for further pap screening Colonoscopy: 03/09/2019 showed a tubular adenoma h/o tubular adenoma 2004, as well Vaccines: Flu shot: Pneumovax, 09/12/2014 Tdap: Zostavax: 09/12/2014 Hep A immune Dexa scan: -with osteopenia December 2015 STI/HIV screen negative December 2013 Kidney stone 05/11/2012 Assessment & Plan (10/09/2024 11:00 AM EST): Under the care of Urology patient underwent cystoscopy, right retrograde, right dilatation of ureteric orifice under fluoroscopy, right ureteroscopy, laser lithotripsy, stone basketing, and right stent placement with Dr. Goldstein on 08/06/2024. In office cystoscopy was performed in right ureteral stent was removed without difficulty. Last seen by Dr Goldstein 08/14/2024 where he removed the stent Lumbar radiculopathy 05/11/2012 Assessment & Plan (09/01/2023 [...] ?? LDL-C is now calculated using the Ciaran-Tae calculation, which is a validated novel method providing better accuracy than the Friedewald equation in the estimation of LDL-C. Ciaran SS et al. HITESH. 2013;310(19): 6536-8938 (http://education.[employer].com/faq/GPU268) Chol/HDLC Ratio <5.0 (calc) 3.6 3.0 5.1??High?? [...] Problem Noted Date Diagnosed Date Resolved Date Dry cough 05/10/2023 10/09/2024 Assessment & Plan (05/10/2023 1:48 PM EDT): Pt with c/o new onset of dry cough, no other associated symptoms allyson sob, no difficulty breathing no fever On exam lungs CTA bilaterally Plan: Chest x-ray Follow up if cough does not resolve or becomes productive nor if any other symptoms present Exercise counseling 02/03/2023 09/01/19 24 Encounters Date Type Department Care Team Description 10/25/2024 Telephone [facility] [place] [place] [address] Louie Gutierrez MD telephone call 10/09/2024 11:00 AM EST Office Visit [facility] [place] [address] Louie Gutierrez MD Venous (peripheral) insufficiency (Primary Dx); Type 2 diabetes mellitus without complication, with long-term current use of insulin ([facility]); Primary hypertension; Lower leg mass, left; Kidney stone; Tinea 10/09/2024 Travel 09/28/2024 10:45 AM EST Office Visit [facility] [place] [address] Amado Lynch MD Intertrigo (Primary Dx) 09/28/2024 Travel 09/27/2024 Telephone [facility] [place] [place] [address] Louie Gutierrez MD Chart Prep 09/13/2024 Orders Only [facility] [place] [place] [address] Louie Gutierrez MD 09/13/2024 Patient Outreach [facility] [place] [place] [address] Louie Gutierrez MD Care Coordination (CH[facility] outreach for SDOH PT-1 and food needs-referral completed /) 09/12/2024 Telephone [facility] [place] [place] [address] Louie Gutierrez MD Referral 09/12/2024 Telephone [facility] [place] [place] [address] Louie Gutierrez MD PT1; Results 08/05/2024 Orders Only GENERIC EXTERNAL DATA DEPARTMENT Provider, Generic External Data 08/02/2024 9:00 AM EST Office Visit [facility] [address] [place] [address] Herber Zelaya DMD from Last 3 Months Immunizations Name Administration [...] Sign Reading Time Taken Comments Blood Pressure 144/82 10/09/2024 11:03 AM EST Pulse 78 10/09/2024 10:43 AM EST Temperature 36.4 ??C (97.5 ??F) 10/09/2024 10:[address] Respiratory Rate 20 10/09/2024 10:43 AM EST Oxygen Saturation 98% 10/09/2024 10:43 AM EST Inhaled Oxygen Concentration - - Weight 71.5 kg (157 lb 9.6 oz) 10/09/2024 10:43 AM EST Height 152.4 cm (5') 10/09/2024 10:43 AM EST Body Mass Index 30.78 10/09/2024 10:43 AM EST Plan of Treatment Upcoming Encounters Date Type Department Care Team (Late st Contact Info) Description 12/21/2024 9:00 AM EDT Office Visit [facility] [address] [place], [place] [phone] Jennifer Fowler [address] [place] [address] 01/17/2025 10:00 AM EDT Office Visit [facility] [address] [place] [address] Louie Gutierrez MD [address] [place] [address] Health Maintenance Due Date Last Done Comments Diabetes: Foot Exam 1950 Eye Exam 1950 RSV Patients and Patients Aged 60 years or older (1 - 1-dose 75+ series) 2016 Zoster Vaccines (3 of 3) 08/12/2022 06/17/2022, 08/23 Diabetes: Urine Protein Screening 08/26/2022 08/26/2021, 11/10/2020, 10/11/2019 Lipid Panel 02/12/2024 02/11/2023, 04/2022, 08/26/2021, Additional history exists COVID-19 Vaccine ( season) 2024 11/14/2020, 10/17/2020 Dental Oral Exam 11/05/2024 05/07/2024, , 07/02/2022, Additional history exists Dental Prophylaxis 11/05/2024 05/07/2024, 0 09/15/2023, 07/02/2022, Additional history exists Diabetes: Hemoglobin A1C 01/06/2025 025, 05/31/2024, 12/01/2023, Additional history exists DTaP/Tdap/Td Vaccines (2 - Td or Tdap) 03/13/2025 03/13/2015, 05/08/2004, 04/28/1993 Dental X-Ray: Bitewings 05/08/2025 05/07/20 24, 12/01/2023, 09/15/2023, Additional history exists Depression Screening 05/31/2025 05/31/2024, 05/31/20 24 Mammogram 09/13/2025 09/13/2024, 08/22, 09/02/2022, Additional history exists Alcohol/Substance Use Screening 10/09/2025 10/09/2024 SDOH Screening 10/09/2025 10/09/2024 Tobacco Screening 10/09/2025 10/09/2024 Dental X-Ray: Full Mouth 05/08/2027 05/07/2024, 02/0 [...] Procedure Name Priority Date/Time Associated Diagnosis Comments POCT GLYCATED HEMOGLOBIN, TOTAL Routine 10/09/2024 10:59 AM EST Type 2 diabetes mellitus without complication, with long-term current use of insulin ([facility]) POCT GLUCOSE Routine 10/09/2024 10:55 AM EST Type 2 diabetes mellitus without complication, with long-term current use of insulin ([facility]) MR TIBIA FIBULA W AND WO CONTRAST LEFT Routine 09/22/2024 7:23 AM EST BI MAMMOGRAM SCREENING TOMOSYNTHESIS BILATERAL Routine 09/13/2024 8:38 AM EST FL GUIDANCE IN OR Routine 08/06/2024 5:3 [...] WO CONTRAST Routine 08/05/2024 1:46 PM EST CASE PRESENTATION, DETAILED AND EXTENSIVE TREATMENT PLANNING Routine 08/02/2024 9:00 AM EST 2,3,4,13,14,15 MAXILLARY PARTIAL DENTURE - RESIN BASE (INCLUDING, RETENTIVE/CLASPING MATERIALS, RESTS, AND TEETH) Routine 08/02/2024 9:00 AM EST PROPHYLAXIS - ADULT Routine 05/07/2024 8 :00 AM EDT Dental calculus Dental plaque INTRAORAL - COMPLETE SERIES OF RADIOGRAPHIC IMAGES Routine 05/07/2024 8:00 AM EDT PERIODIC ORAL EVALUATION - ESTABLISHED PATIENT Routine 05/07/2024 8:00 AM EDT LIPID PANEL WITH REFLEX TO DIRECT LDL Routine 02/11/2023 9:28 AM EDT Type 2 diabetes mellitus without complication, with long-term current use of insulin ([facility]) ALBUMIN, RANDOM URINE W/CREATININE Routine 08/26/2021 8:03 AM EST from Last 3 Months or Most Recently Relevant to Health Maintenance Results * (ABNORMAL) POCT HGB A1C (10/09/2024 10:59 AM EST) Hemoglobin A1C 9.3(A) 4.0 - 6.0 % QC Media Lot # [id number] Lot# Expiration Date Blood 10/09/2024 10:5 9 AM EST Louie Whalen MD POINT OF CARE TEST EN TER/EDIT ORDERABLES Final Result * POCT Glucose (10/09/2024 10:55 AM EST) Glucose Blood, POC 128 60 - 200 mg/dL QC Media Lot # [id number] Lot# Expiration Date 172,025 Blood Capillary blood specimen / Unknown 10/09/2024 10:55 AM EST Louie Whalen MD POINT OF CARE TEST EN TER/EDIT ORDERABLES Final Result * MR Maryjane Tinoco w/ and w/o Contrast Left (09/22/2024 7:23 AM EST) Anatomical Region Laterality Modality Lower Extremities, Lower Leg Left Mag netic Resonance 09/22/2024 7:23 AM EST Narrative 09/22/2024 7:25 AM EST ? [facility] ?[address] ?[place] [address] ? Magnetic Resonance Report ? Signed ? Patient: Rodriguez,Yusra J ?MR#: [id number] ?? 3 ? : 1940 ?Acct:[id number] ? Age/Sex: 83 / F ?ADM Date: 09/21/24 ? Loc: HO.MRI ? Attending Dr: Louie Narayanan MD ? Ordering Physician: Louie Narayanan MD ?? Date of Service: 09/21/24 ?? Procedure(s): MR Tibia LT wo/w Contrast ?? Accession Number(s): [id number] ? cc: Louie Narayanan MD ? CLINICAL HISTORY: LOCALIZED SWELLING, MASS, LUMP LT LOWER LIMB ? MR left lower extremity with and without gadolinium ? Comparison: Radiographs 06/05/2024 ? Findings: ?? There is normal marrow signal. No acute fractures. ?? There are no enhancing mass lesions. ?? There are venous varicosities. ?? There is mild edema within the subcutaneous fat. ?? No soft tissue mass lesions are visualized ? IMPRESSION: ?? Nonspecific subcutaneous edema possible cellulitis ?? Venous varicosities ? This document has been electronically signed by: Leonardo Torres MD on ?? 09/22/2024 07:23:41 ? Dictated By: ?Leonardo Torres MD ? Signed By: ?<Electronically signed by Leonardo Torres MD in OV> ? 09/22/24723 ? DD/ 2 ? TD/TT: 02/01/25 0723 ? Bodybuilder: ? Procedure Note Donotuseinterpreter, Image - 09/22/[address] [address] Magnetic Resonance Report Signed Patient: Yusra Rodriguez JMR#: [id number] 3 : 2Acct:[id number] Age/Sex: 83 / FADM Date: 09/21/24 Loc: HO.MRI Attending Dr: Louie Narayanan MD Ordering Physician: Louie Narayanan MD Date of Service: 09/21/24 Procedure(s): MR Tibia LT wo/w Contrast Accession Number(s): [id number] cc: Louie Narayanan MD CLINICAL HISTORY: LOCALIZED SWELLING, MASS, LUMP LT LOWER LIMB MR left lower extremity with and without gadolinium Comparison: Radiographs 06/05/2024 Findings: There is normal marrow signal. No acute fractures. There are no enhancing mass lesions. There are venous varicosities. There is mild edema within the subcutaneous fat. No soft tissue mass lesions are visualized IMPRESSION: Nonspecific subcutaneous edema possible cellulitis Venous varicosities This document has been electronically signed by: Leonardo Torres MD on 09/22/2024 07:23:41 Dictated By: Leonardo Torres MD Signed By: <Electronically signed by Leonardo Torres MD in OV> 09/22/24723 DD/ 2 TD/TT: 09/22/24722 Bodybuilder: us Louie Whalen MD IMG MRI PROCEDURES Fi nal Result * BI Mammogram Screening Tomosynthesis Bilateral (09/13/2024 8:38 AM EST) Anatomical Region Laterality Modality Breast Bilateral Mammography 09/13/2024 8:38 AM EST Narrative 09/21/2024 4:45 PM EST ? [facility] ? [address] ?[place] [address] ? Mammography Report ? Signed ? Patient: Rodriguez,Yusra J ?MR#: [id number] ?? 3 ? : 1940 ?Acct:[id number] ? Age/Sex: 83 / F ?ADM Date: 09/13/24 ? Loc: HO.MAMMO ? Attending Dr: Louie Narayanan MD ? Ordering Physician: Louie Narayanan MD ?Resu ?? lts: 1Negative ? Date of Service: 09/13/24 ?Follow Up: 1 Year From Orig ?? inal Mammogram ? Procedure(s): MM tomosynthesis screening BI ?? Accession Number(s): [id number] ? cc: Louie Narayanan MD ? EXAMINATION: ?? MM SCREENING DIGITAL BREAST TOMOSYNTHESIS, BILATERAL ? CLINICAL INFORMATION: ? Screening. Asymptomatic. ? COMPARISON: ?? Mammography: Comparison is made with available priors ? TECHNIQUE: ?? Digital breast mammography with tomosynthesis is performed in both the ?? craniocaudal and mediolateral oblique views along with computer-aided ?? detection (CAD). ? FINDINGS: ?? The breasts are heterogeneously dense, which may obscure small masses ?? (ACR BI-RADS breast composition Category c). ? There are no significant masses, abnormal [...] due date for their next mammogram. ? Electronically signed by: ??Judi Navarro DO ??09/21/2024 04:42 PM EST ? Dictated By: ?Judi Navarro DO ? Signed By: ?<Electronically signed by Judi Navarro, DO in OV> ? 09/21/24 1642 ? DD/ 0838 ? TD/TT: 09/13/24 0853 ? Bodybuilder: ? Procedure Note Donjaspreetter, Image - 09/21/2024 [place] [facility] [address] [place] [address] Mammography Report Signed Patient: Yusra Rodriguez JMR#: [id number] 3 : 2Acct:[id number] Age/Sex: 83 / FADM Date: 09/13/24 Loc: MARY Attending Dr: Louie Narayanan MD Ordering Physician: Louie Narayanan MDResu lts: 1Negative Date of Service: 09/13/24Follow Up: 1 Year From [facility] Mammogram Procedure(s): MM tomosynthesis screening BI Accession Number(s): [id number] cc: Louie Narayanan MD EXAMINATION: MM SCREENING DIGITAL BREAST TOMOSYNTHESIS, BILATERAL CLINICAL INFORMATION: Screening. Asymptomatic. COMPARISON: Mammography: Comparison is made with available priors TECHNIQUE: Digital breast mammography with tomosynthesis is performed in both the craniocaudal and mediolateral oblique views along with computer-aided detection (CAD). FINDINGS: The breasts are heterogeneously dense, which may obscure small masses (ACR BI-RADS breast composition Category c). There are no significant masses, abnormal calcifications, [...] target due date for their next mammogram. Electronically signed by: Judi Navarro DO 09/21/2024 04:42 PM EST RP Dictated By: Judi Navarro DO Signed By: <Electronically signed by Judi Navarro DO in OV> 09/21/24 1642 DD/ 0838 TD/TT: 09/13/24 0853 Bodybuilder: us Louie Whalen MD IMG BI PROCEDURES Fin al Result * FL Guidance in OR (08/06/2024 5:30 PM EST) Anatomical Region Laterality Modality X-Ray Angiograph y 08/06/2024 5:30 PM EST Narrative 09/20/2024 7:47 AM EST ? [facility] ?[address] ?[place] [address] ? Fluoroscopy Report ? Signed ? Patient: Yusra Rodriguez ?MR#: [id number] ?? 3 ? : 1940 ?Acct:[id number] ? Age/Sex: 83 / F ?ADM Date: 08/05/24 ? Loc: HO.S3 ?376-1 ? Attending Dr: Reid Lambert MD ? Ordering Physician: Adalberto Goldstein MD ?? Date of Service: 08/06/24 ?? Procedure(s): FL guidance in OR ?? Accession Number(s): [id number] ? cc: Adalberto Goldstein MD; Louie Narayanan [...] ??Benedict Junior MD ??09/20/2024 07:44 AM EST ? Dictated By: ?Benedict Junior MD ? Signed By: ?<Electronically signed by Benedict Junior MD in OV> ? 09/20/24 0744 ? DD/ 1730 ? TD/TT: 08/06/24 1815 ? Bodybuilder: SS ? Procedure Note Raimundo, Image - 09/20/2024 [place] [address] Fluoroscopy Report Signed Patient: Yusra Rodriguez JMR#: [id number] 3 : 1940cct:[id number] Age/Sex: 83 / FADM Date: 08/05/24 Loc: .S3 376-[address]: Reid Lambert MD Ordering Physician: Adalberto Goldstein MD Date of Service: 08/06/24 Procedure(s): FL guidance in OR Accession Number(s): [id number] cc: Adalberto Goldstein MD; Louie Narayanan MD [...] 09/20/24 0744 DD/ 1730 TD/TT: 08/06/24 1815 Bodybuilder: SS [facility] External Provider IMG IR PROCEDURES Edited Result - Final * (ABNORMAL) Glucose, Whole Blood (08/05/2024 6:18 PM EST) Glucose, Whole Blood 238(H) 60 - 115 mg/dL [facility] Comment:METER #: [id number] 08/05/2024 6:18 PM EST 08/05/2024 6:21 PM EST Generic External Data Provider LAB BLOOD ORDERAB LES Final Result [facility] [address] [place] [phone] * (ABNORMAL) Urinalysis, Complete, with Reflex to Culture (08/05/2024 6:06 PM EST) Color Urine Yellow [facility] Appearance Urine Clear [facility] PH 5.0 5.0 - 9.0 [facility] Glucose Urine UA >=1000(A) Negative mg/dL [facility] Urine Blood Negative Negative [facility] Specific [place] - Urine 1.010 1.005 - 1.025 [facility] Urine Protein Negative Neg-Trace mg/dL [facility] Urine Ketones Negative Negative mg/dL [facility] Nitrite Urine Negative Negative [facility] Leukocyte Esterase Urine Negative Negative [facility] RBC Urine 0-2 0 - 2 /HPF [facility] Urine WBC 0-5 0 - 5 /HPF [facility] Urine Squamous Epithelial Cell 0-2 0 - 2 /HPF [facility] Urine Bacteria Trace None Seen [facility] Hyaline Casts, Urine 11-20 0 - 2 /LPF [facility] 08/05/2024 6:06 PM EST 08/05/2024 6:11 PM EST Narrative [facility] - 08/05/2024 6:34 PM EST [id number], Clean Catch us Generic External Data Provider LAB URINE ORDERAB LES Final Result Performing Organization Address [facility] de Phone Number [facility] [address] [place] [address] [phone] * (ABNORMAL) Lactic Acid (08/05/2024 6:05 PM EST) Lactic Acid 3.4(HH) 0.5 - 2.0 mmol/L [facility] Comment:Critical value for t est(s): LACTA Results called to bigg back by: ELISE Person calling: LEONA Date: 08/05/24Time: 1842 08/05/2024 6:05 PM EST 08/05/2024 6:11 PM EST us Generic External Data Provider LAB BLOOD ORDERAB LES Final Result Performing Organization Address [facility] de Phone Number [facility] [address] [place] [address] [phone] * CT Head w/o Contrast (08/05/2024 4:07 PM EST) Anatomical Region Laterality Modality Head, Neck Computed Tomogra phy 08/05/2024 4:07 PM EST Narrative 08/05/2024 4:50 PM EST ? [facility] ?[address] ?[place] [address] ? CT Scan Report ? Signed ? Patient: Rodriguez,Yusra J ?MR#: [id number] ?? 3 ? : 1940 ?Acct:[id number] ? Age/Sex: 83 / F ?ADM Date: 12/15/24 ? Loc: HO.ED ? Attending Dr: ? Ordering Physician: Segundo Crum ?? Date of Service: 08/05/24 ?? Procedure(s): CT head/brain wo IV con ?? Accession Number(s): [id number] ? cc: Louie Narayanan MD; Segundo Crum [...] Goldsmith MD ??08/05/2024 04:47 PM ?? EST ? Dictated By: ?Brenden Goldsmith MD ? Signed By: ?<Electronically signed by Brenden Goldsmith MD in OV> ?08/05/24 1647 ? DD/ 1607 ? TD/TT: 08/05/24 1639 ? Bodybuilder: WG ? Procedure Note Ralph Eubanks - 08/05/[address] [address] [address] Scan Report Signed Patient: Yusra Rodriguez JMR#: [id number] 3 : 2Acct:[id number] Age/Sex: 83 / FADM Date: 08/05/24 Loc: HO.ED Attending Dr: Ordering Physician: Segundo Crum Date of Service: 08/05/24 Procedure(s): CT head/brain wo IV con Accession Number(s): [id number] cc: Louie Narayanan MD; Segundo Crum EXAMINATION: [...] Brenden Goldsmith MD 08/05/2024 04:47 PM EST Dictated By: Brenden Goldsmith MD Signed By: <Electronically signed by Brenden Goldsmith MD inOV> 08/05/24 1647 DD/ 1607 TD/TT: 08/05/24 1639 Bodybuilder: YADIEL [facility] External Provider IMG CT PROCEDURES Edited Result - Final * (ABNORMAL) Lactic Acid (08/05/2024 3:48 PM EST) Lactic Acid 3.3(HH) 0.5 - 2.0 mmol/L [facility] Comment:Critical value for t est(s): LACTA Results called to bigg back by: VADIM Person calling: FLEMINC Date: 08/05/24Time: 1619 08/05/2024 3:48 PM EST 08/05/2024 3:56 PM EST us Generic External Data Provider LAB BLOOD ORDERAB LES Final Result Performing Organization Address [facility] de Phone Number [facility] [address] [place] [phone] * VENOUS BLOOD GAS (08/05/2024 2:40 PM EST) VBG pH 7.42 7.32 - 7.43 [facility] Comment:METER #: [id number] additional_comment: CbGentilj VBG PCO2 39 mmHg [facility] Comment:METER #: [id number] additional_comment: CbGentilj VBG PO2 39 mmHg [facility] Comment:METER #: [id number] additional_comment: CbGentilj VBG Base Excess 1.5 mmol/L [facility] Comment:METER #: [id number] additional_comment: CbGentilj VBG HCO3 25 22 - 26 mmol/L [facility] Comment:METER #: [id number] additional_comment: CbGentilj O2 Sat, Charli 66.0 % [facility] Comment:METER #: [id number] additional_comment: CbGentilj 08/05/2024 2:40 PM EST 08/05/2024 2:45 PM EST us Generic External Data Provider LAB BLOOD ORDERAB LES Final Result Performing Organization Address [facility] de Phone Number [facility] [address] [place] [phone] * CT Cervical Spine w/o Contrast (08/05/2024 1:46 PM EST) Anatomical Region Laterality Modality Spine, C-spine Computed Tomogra phy 08/05/2024 1:46 PM EST Narrative 08/05/2024 4:54 PM EST ? [facility] ?[address] ?[place] [address] ? CT Scan Report ? Signed ? Patient: Rodriguez,Yusra J ?MR#: [id number] ?? 3 ? : 1940 ?Acct:[id number] ? Age/Sex: 83 / F ?ADM Date: 08/05/24 ? Loc: HO.ED ? Attending Dr: ? Ordering Physician: Segundo Crum ?? Date of Service: 08/05/24 ?? Procedure(s): CT cervical spine wo IV con ?? Accession Number(s): [id number] ? cc: Louie Narayanan MD; Segundo Crum [...] DD/ 1346 ? TD/TT: 08/05/24 1639 ? Bodybuilder: WG ? Procedure Note Donotuseinterpreter, Image - 08/05/[address] [address] CT Scan Report Signed Patient: Yusra Rodriguez JMR#: [id number] 3 : 1940cct:[id number] Age/Sex: 83 / FADM Date: 08/05/24 Loc: HO.ED Attending Dr: Ordering Physician: Segundo Crum Date of Service: 08/05/24 Procedure(s): CT cervical spine wo IV con Accession Number(s): [id number] cc: Louie Narayanan MD; Segundo Crum EXAMINATION: [...] by: Brenden Goldsmith MD 08/05/2024 04:51 PM [facility] Dictated By: Brenden Goldsmith MD Signed By: <Electronically signed by Brenden Goldsmith MD inOV> 08/05/24 1651 DD/ 1346 TD/TT: 08/05/24 1639 Bodybuilder: YADIEL [facility] External Provider IMG CT PROCEDURES Edited Result - Final * CT Chest w/o Contrast (08/05/2024 1:46 PM EST) Anatomical Region Laterality Modality Body, Chest Computed Tomogra phy 08/05/2024 1:46 PM EST Narrative 08/05/2024 5:11 PM EST ? [facility] ?[address] ?[place] [address] ? CT Scan Report ? Signed ? Patient: Rodriguez,Yusra J ?MR#: [id number] ?? 3 ? : 1940 ?Acct:[id number] ? Age/Sex: 83 / F ?ADM Date: 08/05/24 ? Loc: HO.ED ? Attending Dr: ? Ordering Physician: Segundo Crum ?? Date of Service: 08/05/24 ?? Procedure(s): CT chest wo IV con ?? Accession Number(s): [id number] ? cc: Louie Narayanan MD; Segundo Crum [...] DD/ 1346 ? TD/TT: 08/05/24 1639 ? Bodybuilder: SR ? Procedure Note Raimundo, Image - 08/05/[address] [place] [address] [address] Scan Report Signed Patient: Yusra Rodriguez JMR#: [id number] 3 : 1940cct:[id number] Age/Sex: 83 / FADM Date: 08/05/24 Loc: HO.ED Attending Dr: Ordering Physician: Segundo Crum Date of Service: 08/05/24 Procedure(s): CT chest wo IV con Accession Number(s): [id number] cc: Louie Narayanan MD; Segundo Crum EXAMINATION: [...] 08/05/24 1708 DD/ 1346 TD/TT: 08/05/24 1639 Bodybuilder: [facility] External Provider IMG CT PROCEDURES Edited Result - Final * CT Abdomen Pelvis w/o Contrast (08/05/2024 1:46 PM EST) Anatomical Region Laterality Modality Body, Pelvis, Abdomen Computed T omography 08/05/2024 1:46 PM EST Narrative 08/05/2024 5:11 PM EST ? [facility] ?[address] ?[place] [address] ? CT Scan Report ? Signed ? Patient: Rodriguez,Yusra J ?MR#: [id number] ?? 3 ? : 1940 ?Acct:[id number] ? Age/Sex: 83 / F ?ADM Date: 12/15/24 ? Loc: HO.ED ? Attending Dr: ? Ordering Physician: Segundo Crum ?? Date of Service: 08/05/24 ?? Procedure(s): CT abdomen pelvis wo IV con ?? Accession Number(s): [id number] ? cc: Louie Narayanan MD; Segundo Crum [...] DD/ 1346 ? TD/TT: 08/05/24 1639 ? Bodybuilder: SR ? Procedure Note Donotuseinterpreter, Image - 08/05/[address] [address] CT Scan Report Signed Patient: Yusra Rodriguez JMR#: [id number] 3 : 1940cct:[id number] Age/Sex: 83 / FADM Date: 08/05/24 Loc: HO.ED Attending Dr: Ordering Physician: Segundo Crum Date of Service: 08/05/24 Procedure(s): CT abdomen pelvis wo IV con Accession Number(s): [id number] cc: Louie Narayanan MD; Segundo Crum EXAMINATION: [...] by: Simba Turner MD 08/05/2024 05:08 PM [facility] Dictated By: Simba Turner MD Signed By: <Electronically signed by Simba Turner MD in OV> 08/05/24 1708 DD/ 1346 TD/TT: 08/05/24 1639 Bodybuilder: [facility] External Provider IMG CT PROCEDURES Edited Result - Final * (ABNORMAL) Lipid Panel with Reflex to Direct LDL (02/11/2023 9:28 AM EDT) Cholesterol, Total 175 <200 mg/dL [facility] [place] [facility] HDL Cholesterol 48(L) > OR = 50 mg/dL [facility] Triglycerides 263(H) <150 mg/dL [facility] Comment: If a non-fasting specimen was collected, consider repeat triglyceride testing on a fasting specimen if clinically indicated. Simón et al. J. of Clin. Lipidol. 2015;9:129-169. LDL Cholesterol 92 mg/dL (calc) [facility] Comment: Reference range: <100 Desirable range <100 mg/dL for primary prevention; ?? <70 mg/dL for patients with CHD or diabetic patients with > or = 2 CHD risk factors. LDL-C is now calculated using the Ciaran-Strong calculation, which is a validated novel method providing better accuracy than the Friedewald equation in the estimation of LDL-C. Ciaran SS et al. HITESH. 2013;310(19): 5202-1845 (http://education.Drip In/faq/PJO287) Chol/HDLC Ratio 3.6 <5.0 (calc) [facility] Non-HDL Cholesterol 127 <130 mg/dL (calc) [facility] Comment: For patients with diabetes plus 1 major ASCVD risk factor, treating to a non-HDL-C goal of <100 mg/dL (LDL-C of <70 mg/dL) is considered a therapeutic option. 02/11/2023 9:28 AM EDT 02/11/2023 9:29 AM EDT Narrative [facility] - 02/11/2023 7:45 PM EDT FASTING:NO FASTING: NO us Louie Whalen MD LAB BLOOD ORDERABLES Final Result [facility] [address] [facility], [place] [address] [facility] [address] [place] [address] * ALBUMIN, RANDOM URINE W/CREATININE (08/26/2021 8:03 AM EST) Microalbumin Urine 4.5 See Note: mg/dL [facility] Comment: Reference Range: ?? Reference Range Not established Microalb/Creat Ratio 28 <30 mcg/mg creat [facility] Comment: ?? The ADA defines [...] [facility] 08/26/2021 8:03 AM EST Louie Whalen MD LAB URINE ORDERABLES Final Result Performing Organization Address City/[facility]/ZIP Co de Phone Number [facility] [address] from Last 3 Months or Most Recently Relevant to Health Maintenance Insurance [facility] D[employer]PLETE Care Teams Alumnae Secretary Relationship Specialty Start Date End Date Louie Gutierrez MD [address] [place] [phone] PCP - General Internal Medicine 06/13/13 [place] Fabiola 08/09/24
--- OUTSIDE RECORDS SUMMARY | 2024-10-26 08:52 | XMS_ITS | Encounter Summary ---
Author Organization [employer] Address [address] [facility] [address] [place] [address] Care Team Providers Care Interventional Radiologist Name Role Phone Louie Gutierrez MD Primary Care Provide r Reason for Visit * Reason Onset Date Comments PT1 09/12/2024 Results 09/12/2024 Encounter Details Date Type Department Care Team ([facility] st Contact Info) Description 09/12/2024 Telephone [facility] MEDICINE [address] [place], [place] [phone] Louie Gutierrez MD [address] [place] [address] PT1; Results Social History Tobacco Use Types Packs/Day Years [...] encounter Miscellaneous Notes * Telephone Encounter - Tanesha España RN - 09/27/2024 12:41 PM EST T.C placed ot pt regarding below results and POC. Informed MRI normal. Pt reports ongoing leg swelling and pain. Denies erythema or skin being hot to the touch. Does report that portion of her leg that is swollen is, farther down now . Pt agreeable to follow up with PCP. Booked for soonest availability 10/09. Mailed appt reminder. Gave ED precautions and NTTS info. * Telephone Encounter - Tanesha España RN - 09/26/2024 9:48 AM EST T/C placed to pt re below imaging results and POC. No answer, left v/m. Will retask for another attempt. * Telephone Encounter - Tanesha España RN - 09/26/2024 9:44 AM EST ----- Message from Louie Whalen MD sent at 09/25/2024 4:39 PM EST ----- Please let patient know that her MRI of left lower leg did not show any masses. If still has swelling or redness please schedule an appointment with me * Telephone Encounter - Alyssia Danielle - 09/12/2024 3:08 PM EST Tc from [place] visiting nurse calling requesting PT1 Home Address verified: Y/N: Yes Provider name or facility name: [facility] [address] [facility], [address]. Escort needed: Y/N: Yes Do you have a wheelchair: Y/N: No If yes- Manual or electric: N/A Visits: (2x monthly) documented in this encounter Plan of Treatment Upcoming Encounters Date Type Department Care Team (Late st Contact Info) Description 12/21/2024 9:00 AM EDT Office Visit [facility] ADULT DENTAL [address] [place] [address] Jennifer Fowler [address] [place] [address] 01/17/2025 10:00 AM EDT Office Visit [facility] MEDICINE [address] [place] [address] Louie Gutierrez MD [address] [place] [address] documented as of this encounter Visit Diagnoses Not on filedocumented in this encounter Additional Health Concerns Assessment Noted Time PHQ-9 Depression Total Score: 1 05/31/20 24 1:55 PM EDT documented as of this encounter Care Teams Interventional Radiologist Relationship Specialty Start Date End Date Louie Gutierrez MD [address] [place] [address] PCP - General Internal Medicine 06/13/13 [place] 08/09/24 documented as of this encounter
--- OUTSIDE RECORDS SUMMARY | 2024-10-26 08:52 | XMS_ITS | Encounter Summary ---
Author Organization [employer] Address [address] [facility] [address] [place] [address] Care Team Providers Care Ships Or Barges Loader Name Role Phone Louie Gutierrez MD Primary Care Provide r Reason for Visit * Reason Onset Date Comments telephone call 10/25/2024 Encounter Details Date Type Department Care Team ([facility] st Contact Info) Description 10/25/2024 Telephone [facility] MED[facility]INE [address] [place], [place] [phone] Louie Gutierrez MD [address] [place], [place] [phone] telephone call Social History Tobacco Use Types Packs/Day Years [...] encounter Miscellaneous Notes * Telephone Encounter - Gracie King - 10/25/2024 10:24 AM EST Pt walked in stating she was seen on 09/28/24 with derm and they prescribed her a cream , but pt is stating the cream isn't helping she is still very itchy and wants to know if they can prescribe her adifferent cream. documented in this encounter Plan of Treatment Upcoming Encounters Date Type Department Care Team (Late st Contact Info) Description 12/21/2024 9:00 AM EDT Office Visit [facility] ADULT DENTAL [address] [place] [address] Jennifer Fowler [address] [place] [address] 01/17/2025 10:00 AM EDT Office Visit [facility] MED[facility]INE [address] [place] [address] Louie Gutierrez MD [address] [place] [address] documented as of this encounter Visit Diagnoses Not on filedocumented in this encounter Additional Health Concerns Assessment Noted Time PHQ-9 Depression Total Score: 1 05/31/20 1:55 PM EDT documented as of this encounter Care Teams Ships Or Barges Loader Relationship Specialty Start Date End Date Louie Gutierrez MD [address] [place] [address] PCP - General Internal Medicine 06/13/13 [place] MARI 08/09/24 documented as of this encounter
--- OUTSIDE RECORDS SUMMARY | 2024-10-26 08:52 | XMS_ITS | Encounter Summary ---
Author Organization [employer] Address [address] [facility] 7t [place] [address] Care Team Providers Care Cement Sprayer Helper Name Role Phone Louie Gutierrez MD Primary Care Provide r Encounter Details Date Type Department Care Team (Late st Contact Info) Description 12/07/2022 Orders Only [facility] CHC MED & PEDS [address] [place], [place] [phone] Roro Gregg LPN Social History Tobacco Use [...] Description 12/21/2024 9:00 AM EDT Office Visit [facility] ADULT DENTAL [address] [place], [place] [phone] Jennifer Fowler [address] [place] [address] 01/17/2025 10:00 AM EDT Office Visit [facility] MEDICINE [address] [place], [place] [phone] Louie Gutierrez MD [address] [place] [address] documented as of this encounter Visit Diagnoses Not on filedocumented in this encounter Care Teams Cement Sprayer Helper Relationship Specialty Start Date End Date Louie Gutierrez MD [address] [place] [address] PCP - General Internal Medicine 06/13/13 Fatimah A 08/09/24 documented as of this encounter
--- OUTSIDE RECORDS SUMMARY | 2024-10-26 08:52 | XMS_ITS | Encounter Summary ---
Author Organization [employer] Address [address] [facility] 7t [place] [address] Care Team Providers Care Vault Cashier Name Role Phone Louie Gutierrez MD Primary Care Provide r Reason for Visit * Reason Comments Med Refill Encounter Details Date Type Department Care Team ([facility] st Contact Info) Description 09/01/2023 Refill [facility] MEDICINE [address] [place], [place] [phone] Louie Gutierrez MD [address] [place], [place] [phone] Social History Tobacco Use Types Packs/Day Years [...] Description 12/21/2024 9:00 AM EDT Office Visit [facility] ADULT DENTAL [address] [place] [address] Malcolm Jennifer [address] [place] [address] 01/17/2025 10:00 AM EDT Office Visit [facility] MEDICINE [address] [place] [address] Louie Gutierrez MD [address] [place] [address] documented as of this encounter Visit Diagnoses Not on filedocumented in this encounter Additional Health Concerns Assessment Noted Time PHQ-9 Depression Total Score: 0 02/04/20 23 2:31 PM EDT documented as of this encounter Care Teams Vault Cashier Relationship Specialty Start Date End Date Louie Gutierrez MD [address] [place] [address] PCP - General Internal Medicine 06/13/13 Fatimah GOODWINA 08/09/24 documented as of this encounter
--- OUTSIDE RECORDS SUMMARY | 2024-10-26 08:52 | XMS_ITS | Encounter Summary ---
Author Organization [employer] Address [address] [facility] 7t [place] [address] Care Team Providers Care Apartment Maintenance Worker Name Role Phone Louie Gutierrez MD Primary Care Provide r Encounter Details Date Type Department Care Team (Latest Contact Info) Description 10/09/2024 Travel Social History Tobacco Use Types Packs/Day Years [...] Description 12/21/2024 9:00 AM EDT Office Visit [facility] ADULT DENTAL [address] [place] [address] Malcolm Jennifer [address] [place] [address] 01/17/2025 10:00 AM EDT Office Visit [facility] MEDICINE [address] [place] [address] Louie Gutierrez MD [address] [place] [address] documented as of this encounter Visit Diagnoses Not on filedocumented in this encounter Additional Health Concerns Assessment Noted Time PHQ-9 Depression Total Score: 1 05/31/20 24 1:55 PM EDT documented as of this encounter Care Teams Apartment Maintenance Worker Relationship Specialty Start Date End Date Louie Gutierrez MD [address] [place] [address] PCP - General Internal Medicine 06/13/13 Fatimah GOODWINA 08/09/24 documented as of this encounter
--- OUTSIDE RECORDS SUMMARY | 2024-10-26 08:52 | XMS_ITS | Encounter Summary ---
Author Organization [employer] Address 75 [facility] 7t [place] [address] Care Team Providers Care Manager Income Tax Name Role Phone Louie Gutierrez MD Primary Care Provide r Encounter Details Date Type Department Care Team (Latest Contact Info) Description 07/02/2022 Abstract [facility], [...] Care Team ( st Contact Info) Description 12/21/2024 9:00 AM EDT Office Visit [facility] ADULT DENTAL [address] [place] [address] Jennifer Fowler [address] [place] [address] 01/17/2025 10:00 AM EDT Office Visit [facility] MEDICINE [address] [place] [address] Louie Gutierrez MD [address] [place] [address] documented as of this encounter Visit Diagnoses Not on filedocumented in this encounter Care Teams Manager Income Tax Relationship Specialty Start Date End Date Louie Gutierrez MD [address] [place] [address] PCP - General Internal Medicine 06/13/13 Fatimah MARI 08/09/24 documented as of this encounter
--- OUTSIDE RECORDS SUMMARY | 2024-10-26 08:52 | XMS_ITS | Encounter Summary ---
Author Organization [employer] Address [address] [facility] 7t [place] [address] Care Team Providers Care Horse Racing Manager Name Role Phone Louie Gutierrez MD Primary Care Provide r Encounter Details Date Type Department Care Team (Latest Contact Info) Description 10/20/2020 Abstract [facility] CONVERSIONS Dental, Provider, DDS Social History Tobacco [...] Description 12/21/2024 9:00 AM EDT Office Visit [facility] ADULT DENTAL [address] [place] [address] Jennifer Fowler [address] [place] [address] 01/17/2025 10:00 AM EDT Office Visit [facility] MEDICINE [address] [place] [address] Louie Gutierrez MD [address] [place] [address] documented as of this encounter Visit Diagnoses Not on filedocumented in this encounter Care Teams Horse Racing Manager Relationship Specialty Start Date End Date Louie Gutierrez MD [address] [place] [address] PCP - General Internal Medicine 06/13/13 Fatimah MARI 08/09/24 documented as of this encounter
--- OUTSIDE RECORDS SUMMARY | 2024-10-26 08:52 | XMS_ITS | Encounter Summary ---
Author Organization [employer] Address [address] [facility] 7t [place] [address] Care Team Providers Care Telegraph Installer Name Role Phone Louie Gutierrez MD Primary Care Provide r Reason for Visit * Reason Comments Follow-up Leg swelling and sara n F/U per PCP; pt reports a weird pain in between her breasts Encounter Details Date Type Department Care Team (Latest Contact Info) Description 10/09/2024 11:00 AM EST Office Visit [facility] MEDICINE [address] [place] [address] Louie Gutierrez MD [address] [place], [place] [phone] Venous (peripheral) insufficiency (Primary Dx); Type 2 diabetes mellitus without complication, with long-term current use of insulin ([facility]); Primary hypertension; Lower leg mass, left; Kidney stone; Tinea Social History Tobacco Use Types Packs/Day Years [...] the past 12 months, has t he [employer], gas, oil or water [employer] threatened to shut off services in your [...] Mass Index 30.78 10/09/2024 10:43 AM EST documented in this encounter Progress Notes * Louie Whalen MD - 10/09/2024 11:00 AM EST SUBJECTIVE Yusra Rodriguez is a 84 y.o. female who presents for Follow-up (Leg swelling and pain F/U per PCP; pt reports a weird pain in between her breasts). Diabetes She presents for her follow-up diabetic visit. She has type 2 diabetes mellitus. Pertinent negatives for hypoglycemia include no headaches. Pertinent negatives for diabetes include no chest pain. Review of Systems Constitutional: Negative for fever. HENT: Negative for sore throat. Respiratory: Negative for cough and shortness of breath. Cardiovascular: Negative for chest pain. Gastrointestinal: Negative for abdominal pain. Neurological: Negative for headaches. Allergies Allergen Reactions Sulfa Antibiotics Trimethoprim OBJECTIVE Vitals: 10/09/24 1043 10/09/24 1103 BP: (!) 177/88 (!) 144/82 BP Location: Left arm Left arm Patient Position: Sitting Sitting BP Cuff Size: Adult Pulse: 78 Resp: 20 Temp: 97.5 ??F (36.4 ??C) TempSrc: Temporal SpO2: 98% Weight: 157 lb 9.6 oz (71.5 kg) Height: 5' (1.524 m) Physical Exam Vitals reviewed. Constitutional: Appearance: Normal appearance. HENT: Head: Normocephalic and atraumatic. Right Ear: External ear normal. Left Ear: External ear normal. Nose: Nose normal. Mouth/Throat: Mouth: Mucous membranes are moist. Eyes: Conjunctiva/sclera: Conjunctivae normal. Cardiovascular: Rate and Rhythm: Normal rate and regular rhythm. Pulmonary: Effort: Pulmonary effort is normal. Breath sounds: Normal breath sounds. Skin: General: Skin is warm. Neurological: Mental Status: She is alert. Mental status is at baseline. Assessment/Plan Problem List Items Addressed This Visit Diabetes mellitus, type II ([facility]) Pt is here for a f/u She is on a regimen of: Metformin XR 500 mg 2 tabs po BID, Glipizide 10 mg po daily ,Lantus 14 units sc q pm and Trulicity 4.5 mg q week She is on med boxes Hgb A1c 10/09/2024 : 9.3 from 13.7 from 9.1 from 8.3 Glucometer shows readings as low as 98 Eye exam was last done on: 01/21/[address] Cotton (devulcanizer tender) measured her IOP and was stable so [...] check your feet on a daily basis Relevant Medications insulin glargine (Lantus SoloStar) 100 UNIT/ML pen Other Relevant Orders POCT Glucose (Completed) POCT HGB A1C (Completed) Albumin, Random Urine W/Creatinine Venous (peripheral) insufficiency - Primary Being followed by Cardiology dr Saucedo, who recommended laser ablation, done 07/2024 Hypertension Pt is here for a f/u BP [...] note pt had a cardiac cath at [facility] on 05/20/2009 There was NO angiographic evidence of CAD. seen in the past at [facility]. PREVIOUSLY ADDRESSED: THE INFORMATION BELOW HAS BEEN COPIED, PASTED AND UPDATED FROM PREVIOUS NOTES. Chest discomfort (R07.89). Resolved, pt ended up having an outpt stress test 05/23/2019 that was negative for ischemia. Of notept had a cardiac cath 2008 at [facility] that was unremarkable. 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 Pt with a Hx. of ? Paget's disease of the bone, evaluated in the past by an director [place] sales (Dr Banuelos) who treated her initially with Actonel but she could not tolerate subsequently she was given aninfusion of Reclast and remains on Vitamin D pt was lost for f/u with Dr Banuelos. Last visit we scheduled a f/u appointment. Pt was seen by a different Packaging Specialist (Dr Ferrer)who review previous notes from Dr Banuelos and new bone scan, and lab data. She was seen on 11/08/2012nd based on his impression he DID NOT think pt had Paget's disease. She was last seen by [facility] Endocrinology on 02/16/2013 (Dr Ferrer) He diagnosed her with Osteoporosis and prescribed Reclast again. Recommended she stayedon Calcium and Vitamin D. He also thinks [...] care of Dr. Ferrer last seen 09/19/2014 Lower leg mass, left Patient with c/o newly developed lump on her left lower leg, non tender, no redness, no swelling MRI of left lower leg showed: IMPRESSION: Nonspecific subcutaneous edema possible cellulitis Venous varicosities Kidney stone Under the care of Urology patient underwent cystoscopy, right retrograde, right dilatation of ureteric orifice under fluoroscopy, right ureteroscopy, laser lithotripsy, stone basketing, and right stent placement with Dr. Goldstein on 08/06/2024. In office cystoscopy was performed in right ureteral stent was removed without difficulty. Last seen by Dr Goldstein 08/14/2024 where he removed the stent Other Visit Diagnoses Tinea Relevant Medications miconazole (Micatin) 2 % cream documented in this encounter Miscellaneous Notes * Assessment & Plan Note - Louie Whalen MD - 10/09/2024 11:00 AM EST Associated Problem(s): Kidney stone Under the care of Urology patient underwent cystoscopy, right retrograde, right dilatation of ureteric orifice under fluoroscopy, right ureteroscopy, laser lithotripsy, stone basketing, and right stent placement with Dr. Goldstein on 08/06/2024. In office cystoscopy was performed in right ureteral stent was removed without difficulty. Last seen by Dr Goldstein 08/14/2024 where he removed the stent * Assessment & Plan Note - Louie Whalen MD - 10/09/2024 10:58 AM EST Associated Problem(s): Diabetes mellitus, type II ([facility]) Pt is here for a f/u She is on a regimen of: Metformin XR 500 mg 2 tabs po BID, Glipizide 10 mg po daily ,Lantus 14 units sc q pm and Trulicity 4.5 mg q week She is on med Rehabtics Hgb A1c 10/09/2024 : 9.3 from 13.7 from 9.1 from 8.3 Glucometer shows readings as low as 98 Eye exam was last done on: 01/21/[address] Cotton (devulcanizer tender) measured her IOP and was stable so [...] check your feet on a daily basis * Assessment & Plan Note - Louie Whalen MD - 10/09/2024 10:57 AM EST Associated Problem(s): Lower leg mass, left Patient with c/o newly developed lump on her left lower leg, non tender, no redness, no swelling MRI of left lower leg showed: IMPRESSION: Nonspecific subcutaneous edema possible cellulitis Venous varicosities * Assessment & Plan Note - Louie Whalen MD - 10/09/2024 10:56 AM EST Associated Problem(s): Hypertension Pt is here for a f/u BP [...] note pt had a cardiac cath at [facility] on 05/20/2009 There was NO angiographic evidence of CAD. seen in the past at [facility]. PREVIOUSLY ADDRESSED: THE INFORMATION BELOW HAS BEEN COPIED, PASTED AND UPDATED FROM PREVIOUS NOTES. Chest discomfort (R07.89). Resolved, pt ended up having an outpt stress test 05/23/2019 that was negative for ischemia. Of notept had a cardiac cath 2008 at [facility] that was unremarkable. 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 Pt with a Hx. of ? Paget's disease of the bone, evaluated in the past by an director [place] sales (Dr Banuelos) who treated her initially with Actonel but she could not tolerate subsequently she was given aninfusion of Reclast and remains on Vitamin D pt was lost for f/u with Dr Banuelos. Last visit we scheduled a f/u appointment. Pt was seen by a different Packaging Specialist (Dr Ferrer)who review previous notes from Dr Banuelos and new bone scan, and lab data. She was seen on 11/08/2012nd based on his impression he DID NOT think pt had Paget's disease. She was last seen by [facility] Endocrinology on 02/16/2013 (Dr Ferrer) He diagnosed her with Osteoporosis and prescribed Reclast again. Recommended she stayedon Calcium and Vitamin D. He also thinks [...] care of Dr. Ferrer last seen 09/19/2014 * Assessment & Plan Note - Louie Whalen MD - 10/09/2024 10:52 AM EST Associated Problem(s): Venous (peripheral) insufficiency Being followed by Cardiology dr Saucedo, who recommended laser ablation, done 07/2024 documented in this encounter Plan of Treatment Upcoming Encounters Date Type Department Care Team (Late st Contact Info) Description 12/21/2024 9:00 AM EDT Office Visit [facility] ADULT DENTAL [address] [place] [address] Ulises Fowleraris [address] [place] [address] 01/17/2025 10:00 AM EDT Office Visit [facility] MEDICINE [address] [place] [address] Louie Gutierrez MD [address] [place] [address] Scheduled Orders Name Type Priority Associated Diagnoses Orde r Schedule Albumin, Random Urine W/Creatinine Lab Routine Type 2 diabetes mellitus without complication, with long-term current use of insulin ([facility]) Ordered: 10/09/2024 documented as of this encounter Procedures Procedure Name Priority Date/Time Associated Diagnosis Comments POCT GLYCATED HEMOGLOBIN, TOTAL Routine 10/09/2024 10:59 AM EST Type 2 diabetes mellitus without complication, with long-term current use of insulin ([facility]) POCT GLUCOSE Routine 10/09/2024 10:55 AM EST Type 2 diabetes mellitus without complication, with long-term current use of insulin ([facility]) documented in this encounter Results * (ABNORMAL) POCT HGB A1C (10/09/2024 10:59 AM EST) Hemoglobin A1C 9.3(A) 4.0 - 6.0 % QC Media Lot # [id number] Lot# Expiration Date Blood 10/09/2024 10:5 9 AM EST us Louie Whalen MD POINT OF CARE TEST EN TER/EDIT ORDERABLES Final Result * POCT Glucose (10/09/2024 10:55 AM EST) Glucose Blood, POC 128 60 - 200 mg/dL QC Media Lot # [id number] Lot# Expiration Date 172,025 Blood Capillary blood specimen / Unknown 10/09/2024 10:55 AM EST Louie Whalen MD POINT OF CARE TEST EN TER/EDIT ORDERABLES Final Result documented in this encounter Visit Diagnoses Diagnosis Venous (peripheral) insufficiency- Primary Unspecified venous (peripheral) insufficiency Type 2 diabetes mellitus without complication, with long-term current use of insulin ([facility]) Primary hypertension Unspecified essential hypertension Lower leg mass, left Kidney stone Calculus of kidney Tinea Dermatophytosis of unspecified site documented in this encounter Additional Health Concerns Assessment Noted Time PHQ-9 Depression Total Score: 1 05/31/20 24 1:55 PM EDT documented as of this encounter Care Teams Telegraph Installer Relationship Specialty Start Date End Date Louie Gutierrez MD [address] [place] [address] PCP - General Internal Medicine 06/13/13 Fatimah MARI 08/09/24 documented as of this encounter
--- OUTSIDE RECORDS SUMMARY | 2024-10-26 08:52 | XMS_ITS | Encounter Summary ---
Author Organization [employer] Address [address] [facility] 7t [place] [address] Care Team Providers Care Dry Cleaning Manager Name Role Phone Louie Gutierrez MD Primary Care Provide r Encounter Details Date Type Department Care Team ([facility] st Contact Info) Description 09/28/2024 10:45 AM EST Office Visit [facility] MEDICINE [address] [place], [place] [phone] Amado Lynch MD [address] [place], [place] [phone] Intertrigo (Primary Dx) Social History Tobacco Use Types Packs/Day Years [...] Sign Reading Time Taken Comments Blood Pressure 140/76 09/28/2024 10:19 AM EST Pulse 60 09/28/2024 10:19 AM EST Temperature 36.2 ??C (97.1 ??F) 09/28/2024 10:[address] Respiratory Rate 12 09/28/2024 10:19 AM EST Oxygen Saturation - - Inhaled Oxygen Concentration - - Weight 69.9 kg (154 lb 3.2 oz) 09/28/2024 10:19 AM EST Height - - Body Mass Index 30.12 06/19/2024 10:09 AM EDT documented in this encounter Progress Notes * Amado Lynch MD - 09/28/2024 10:45 AM EST Subjective Patient ID: Yusra Rodriguez is a 83 y.o. female who presents for No chief complaint on file.. HPI 83 yr old woman with itch on her private area for 5 months. No hx of skin cancer Review of Systems Constitutional: Negative for diaphoresis, fatigue and fever. HENT: Negative for ear discharge, ear pain, facial swelling and hearing loss. Respiratory: Negative for cough, choking, chest tightness and shortness of breath. Cardiovascular: Negative for chest pain and leg swelling. Gastrointestinal: Negative for abdominal distention, abdominal pain and anal bleeding. Endocrine: Negative for cold intolerance and heat intolerance. Genitourinary: Negative for enuresis, flank pain and frequency. Musculoskeletal: Negative for arthralgias, back pain and gait problem. Neurological: Negative for dizziness, facial asymmetry and headaches. Psychiatric/Behavioral: Negative for agitation, behavioral problems and confusion. Objective Physical Exam Constitutional: Appearance: Normal appearance. HENT: Head: Normocephalic and atraumatic. Nose: Nose normal. Eyes: Pupils: Pupils are equal, round, and reactive to light. Pulmonary: Effort: Pulmonary effort is normal. Musculoskeletal: General: Normal range of motion. Cervical back: Normal range of motion. Skin: Comments: Erythematous papules on lower abdominal folds and panus Neurological: General: No focal deficit present. Mental Status: She is alert. Assessment/Plan Diagnoses and all orders for this visit: Intertrigo Lower abdominal fold Apply Tx as below. - econazole nitrate 1 % cream; Apply topically 2 times daily. - hydrocortisone 2.5 % cream; Apply topically 2 times daily. documented in this encounter Plan of Treatment Upcoming Encounters Date Type Department Care Team (Late st Contact Info) Description 12/21/2024 9:00 AM EDT Office Visit [facility] ADULT DENTAL [address] [place] [address] Malcolm, Jennifer [address] [place] [address] 01/17/2025 10:00 AM EDT Office Visit [facility] MEDICINE [address] [place] [address] Louie Gutierrez MD [address] [place] [address] documented as of this encounter Visit Diagnoses Diagnosis Intertrigo- Primary Other specified erythematous condition documented in this encounter Additional Health Concerns Assessment Noted Time PHQ-9 Depression Total Score: 1 05/31/20 24 1:55 PM EDT documented as of this encounter Care Teams Dry Cleaning Manager Relationship Specialty Start Date End Date Louie Gutierrez MD [address] [place] [address] PCP - General Internal Medicine 06/13/13 Fatimah MARI 08/09/24 documented as of this encounter
--- OUTSIDE RECORDS SUMMARY | 2024-10-26 08:52 | XMS_ITS | Encounter Summary ---
Author Organization [employer] Address [address] [facility] 7t [place] [address] Care Team Providers Care Water Valve Repairer Name Role Phone Louie Gutierrez MD Primary Care Provide r Encounter Details Date Type Department Care Team (Latest Contact Info) Description 09/28/2024 Travel Social History Tobacco Use Types Packs/Day [...] Description 12/21/2024 9:00 AM EDT Office Visit [facility] ADULT DENTAL [address] [place] [address] Malcolm, Jennifer [address] [place] [address] 01/17/2025 10:00 AM EDT Office Visit [facility] MEDICINE [address] [place] [address] Louie Gutierrez MD [address] [place] [address] documented as of this encounter Visit Diagnoses Not on filedocumented in this encounter Additional Health Concerns Assessment Noted Time PHQ-9 Depression Total Score: 1 05/31/20 24 1:55 PM EDT documented as of this encounter Care Teams Water Valve Repairer Relationship Specialty Start Date End Date Louie Gutierrez MD [address] [place] [address] PCP - General Internal Medicine 06/13/13 Fatimah GOODWINA 08/09/24 documented as of this encounter
[2024-10-26 10:02] LABS: Creatinine Urine 86.79 mg/dL; Microalbum/Creatinine Ratio Ur 10.3 ug/mg cr (<30)
== END 2024-10-26 08:25 | disposition home or self-care (01) ==
LOC: HO.LAB 08:24
PROVIDERS: PCP Internal Medicine; Visit Provider Internal Medicine
DX: E11.9 Type 2 diabetes mellitus without complications (principal); Z79.4 Long term (current) use of insulin
CPT/HCPCS: 82043; 82570

== ENCOUNTER 2024-11-02 08:33 | Outpatient (REF) | payer OTHER, SELFPAY ==
--- NOTE | ~2024-11-02 | US_ITS ---
CLINICAL HISTORY: N20.0 - Calculus of kidney US Renal Comparison: None Findings: Right kidney normal size and echotexture, measuring 9.0 cm in length Left kidney normal size and echotexture, 8.1 cm length. 4 mm calcification within the left kidney. No hydronephrosis of either kidney. Normal color Doppler IMPRESSION: 1. Nonobstructing left renal calcification. This document has been electronically signed by: Christian Iraheta MD on 11/02/2024 15:52:01
[2024-11-08 02:28] LABS: N-Telopeptide 29 (see note); NTXCreaRU 144 mg/dL (20-275)
== END 2024-11-02 08:34 | disposition home or self-care (01) ==
LOC: HO.US 08:33
PROVIDERS: Absent Provider Internal Medicine Endocrinology, Diabetes & Metabolism; PCP Internal Medicine; Visit Provider Nurse Practitioner Family
DX: M81.0 Age-related osteoporosis without current pathological fracture (principal); N20.0 Calculus of kidney
CPT/HCPCS: 76775; 82523

== ENCOUNTER → 2024-11-02 09:13 | Outpatient (BNV) | payer OTHER, SELFPAY | PROVIDERS: Absent Provider Internal Medicine Endocrinology, Diabetes & Metabolism; PCP Internal Medicine; Visit Provider Radiology Diagnostic Radiology | DX: N20.0 Calculus of kidney (principal) | CPT/HCPCS: 76775 ==

== ENCOUNTER 2024-11-13 09:10 | Outpatient (AMB) | payer OTHER, SELFPAY ==
--- NOTE | 2024-11-13 09:57 | A.OFFVIS_ITS ---
Vital Signs 11/13/24 10:00 Height 5 ft 3.27 in Weight 154 lb 5.177 oz BMI 27.1 BP 154/70 H Blood Pressure Location Rt brachial Position Sitting Pulse 84 Pulse Source Pulse Oximeter Pulse Oximetry (%) 98 Oxygen Delivery Method Room Air Intake Visit Reasons: Osteoporosis Intake Note: Patient present today for Osteoporosis follow up. Underwriter Solicitation Director Required: Yes Underwriter Solicitation Director Language: Ship'S Captain Services: Underwriter Solicitation Director Present Underwriter Solicitation Director Name: Jose Information Interpreted: non-clinical & clinical Accompanied by: Self / Same As Patient Allergies Sulfa (Sulfonamide Antibiotics) Allergy (Intermediate, Verified 11/13/24 10:01) RASH/ITCH sulfamethoxazole [From BACTRIM] Allergy (Intermediate, Verified 11/13/24 10:01) HIVES trimethoprim [From BACTRIM] Allergy (Intermediate, Verified 11/13/24 10:01) HIVES oxycodone [From Percocet] Allergy (Unknown, Verified 11/13/24 10:01) Unknown penicillin V Allergy (Unknown, Verified 11/13/24 10:01) Unknown Medication List - Last Reconciled 11/13/24 by Leonardo Banuelos MD amlodipine 5 mg PO BEDTIME aspirin (Adult Low Dose Aspirin) 81 mg PO BEDTIME atorvastatin 80 mg PO BEDTIME blood sugar diagnostic (OneTouch Ultra Test strips) As directed calcium carbonate 600 mg PO BID cefuroxime axetil 500 mg PO Q12H cholecalciferol (vitamin D3) (Vitamin D3) 50 mcg PO QAM dulaglutide (Trulicity) 4.5 mg subcut MO@0900 furosemide 40 mg PO BID glipizide 10 mg PO DAILY hydralazine 50 mg PO BIDWM insulin glargine (Lantus Solostar U-100 Insulin) 14 units subcut BEDTIME lancets (TRUEplus Lancets) As directed metformin 1,000 mg PO BID pen needle, diabetic (UltiCare Pen Needle) As directed valsartan 320 mg PO DAILY HPI Comments Details: 84-year-old female today for follow-up visit, for osteoporosis She is feeling well, but has bilateral knee pain. She he has been taking calcium citrate 500 mg twice a day. She reports no falls. She had Reclast , last dose 02/09/18, 02/14/2017, 02/16/2016. She has other PMH of hypertension, hyperlipidemia, depression, diabetes mellitus type 2, GERD, nephrolithiasis, osteoarthritis. Denies prior fragility fractures, she had a traumatic left ankle fracture after falling from a flight the stairs. She has GERD, Denies FH of fractures or osteoporosis, + nephrolithiasis, no chronic steroids used, never smoker, denies anti seizures medications, no SSRI, + PPI. Negative History of head or neck irradiation. Bisphosphonates use: she had Reclast 3 doses. Calcium intake: Calcium citrate 500 mg twice a day. Is taking vitamin-D 1000 international units daily. 01/31/18 DEXA AP SPINE L1-L4: Current: BMD 1.079 g/cm2, Z-score 0.3, T-score -0.8, normal, 5.5% increase from previous, 30.0% increase from baseline (<5% change is not significant). Prior: BMD 1.023 g/cm2. Baseline: BMD 0.830 g/cm2. LEFT FEMUR, NECK: Current: BMD 0.775 g/cm2, Z-score -0.3, T-score -1.9, osteopenia. Prior: BMD 0.754 g/cm2. Baseline: BMD 0.699 g/cm2. LEFT FEMUR, TOTAL: Current: BMD 0.882 g/cm2, Z-score 0.4, T-score -1.0, normal, 0.1% increase from previous, 14.8% increase from baseline (<5% change is not significant). Prior: BMD 0.881 g/cm2. Baseline: BMD 0.768 g/cm2. Secondary workup was negative. Laboratory Tests Current: BMD 1.057 g/cm2, Z-score 0.3, T-score -1.0, normal, 2.0% decrease from previous, 10.9% increase from baseline (<5% change is not significant). Prior: BMD 1.079 g/cm2. Baseline: BMD 0.953 g/cm2. LEFT FEMUR, NECK: Current: BMD 0.781 g/cm2, Z-score 0.0, T-score -1.9, osteopenia. Prior: BMD 0.775 g/cm2. Baseline: BMD 0.720 g/cm2. LEFT FEMUR, TOTAL: Current: BMD 0.885 g/cm2, Z-score 0.7, T-score -1.0, normal, 0.3% increase from previous, 10.5% increase from baseline (<5% change is not significant). Prior: BMD 0.882 g/cm2. Baseline: BMD 0.801 g/cm2. LEFT FOREARM RADIUS 33%: BMD 0.535 g/cm2, Z-score -1.2, T-score -3.9, osteoporosis. Prior:? Not previously measured. IDENTIFIED RISK FACTORS: Early menopause, hysterectomy, bilateral oophorectomy, rheumatoid arthritis, secondary osteoporosis. HISTORY OF FRACTURE: None listed. MEDICATIONS: Calcium, vitamin D. MM/XR DEXA appendicular skeleton IMPRESSION: 1. DIAGNOSIS: Osteoporosis based on the lowest T-score value of -3.9 in the forearm radius 33% applying World Health Organization criteria.? 01/08/19 01/08/19 08/16/19 00:00 09:56 14:01 Creatinine Est GFR (Non-Af Amer) Calcium Magnesium 1.9 Alkaline Phosphatase 111 Albumin 4.2 N-Telopeptide X-linked 26 25-OH Vitamin D Total 63.2 08/30/19 07:56 Creatinine 0.93 Est GFR (Non-Af Amer) 58 Calcium 9.6 D Magnesium Alkaline Phosphatase Albumin N-Telopeptide X-linked 25-OH Vitamin D Total Being treated with calcium and vitamin-D. No fractures since last visit. Does complain of arthritic pain. Urine NTX is suppressed [facility] Medical History Hydronephrosis of right kidney Hypertension Diabetes mellitus Gram-negative bacteremia Septic shock UTI (urinary tract infection) Calculus of kidney Osteoporosis Surgical History History of surgery Hx of hemorrhoidectomy H/O colonoscopy Hx of cystoscopy Hx of lithotripsy Hx of hysterectomy Family History Father Heart problem Mother No problems noted. 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 Last DEXA 2018 showed osteopenia. . This is secondary workup was completed and was negative. Repeat DEXA showed osteoporosis in the femoral neck. Urine NTX is suppressed Plan is to continue to follow off pharmacologic therapy. If urine NTX is rising, would consider giving another dose of intravenous Reclast or of NTX is stable may consider to to continue observe Orders: Orders Collagen Crosslinks NTX 1 Year M81.0 - Age-related osteoporosis without current pathological fracture Coding Level of Care Code Est Pt Level 3 (99980) Diagnoses Osteoporosis M81.0
[2024-11-13 10:00] VITALS: BP 154/70; PULSE 84; O2SAT 98; BMI 27.1
== END 2024-11-13 10:22 | disposition home or self-care (01) ==
LOC: HO.ENCR 09:10
PROVIDERS: PCP Internal Medicine; Visit Provider Internal Medicine Endocrinology, Diabetes & Metabolism
DX: M81.0 Age-related osteoporosis without current pathological fracture (principal)
CPT/HCPCS: 99213

== ENCOUNTER → 2024-11-13 09:10 | Outpatient (BNVA) | payer OTHER, SELFPAY | PROVIDERS: PCP Internal Medicine; Visit Provider Internal Medicine Endocrinology, Diabetes & Metabolism | DX: M81.0 Age-related osteoporosis without current pathological fracture (principal); E78.5 Hyperlipidemia, unspecified; E11.9 Type 2 diabetes mellitus without complications; Z87.442 Personal history of urinary calculi | CPT/HCPCS: 99212 ==

== ENCOUNTER 2024-11-27 13:56 | Outpatient (AMB) | payer OTHER, SELFPAY ==
--- NOTE | 2024-11-27 14:11 | A.OFFVIS_ITS ---
Intake Visit Reasons: US follow up(set) Intake Note: Patient presents today for follow up on: hydronephrosis, kidney stone, and ultrasound follow up Imaging Completed: 11/02/24 Urology medications: none Blood Thinner: aspirin Pharmaceutical Officer Required: Yes Pharmaceutical Officer Language: Hazmat Technician Name: [id number] Accompanied by: Self / Same As Patient Allergies Sulfa (Sulfonamide Antibiotics) Allergy (Intermediate, Verified 11/27/24 14:36) RASH/ITCH sulfamethoxazole [From BACTRIM] Allergy (Intermediate, Verified 11/27/24 14:36) HIVES trimethoprim [From BACTRIM] Allergy (Intermediate, Verified 11/27/24 14:36) HIVES oxycodone [From Percocet] Allergy (Unknown, Verified 11/27/24 14:36) Unknown penicillin V Allergy (Unknown, Verified 11/27/24 14:36) Unknown Medication List - Last Reconciled 11/27/24 by EBEN Carver amlodipine 5 mg PO BEDTIME aspirin (Adult Low Dose Aspirin) 81 mg PO BEDTIME atorvastatin 80 mg PO BEDTIME blood sugar diagnostic (OneTouch Ultra Test strips) As directed calcium carbonate 600 mg PO BID cholecalciferol (vitamin D3) (Vitamin D3) 50 mcg PO QAM dulaglutide (Trulicity) 4.5 mg subcut MO@0900 furosemide 40 mg PO BID glipizide 10 mg PO DAILY hydralazine 50 mg PO BIDWM insulin glargine (Lantus Solostar U-100 Insulin) 14 units subcut BEDTIME lancets (TRUEplus Lancets) As directed metformin 1,000 mg PO BID pen needle, diabetic (UltiCare Pen Needle) As directed valsartan 320 mg PO DAILY HPI Comments Details: Yusra is a very pleasant 84-year-old Taiwanese-speaking female patient of Dr. Hines. She has a past medical history of hypertension, diabetes, nephrolithiasis, and osteoporosis. She presents to the office today for follow- up of her nephrolithiasis. Of note, patient with a previous history of surgical intervention for nephrolithiasis on 08/06/[address] Goldstein at which time she underwent cystoscopy, right retrograde, right dilatation of ureteric orifice under fluoroscopy, right ureteroscopy, laser lithotripsy, stone basketing, and right stent placement followed by an office cystoscopy with right-sided ureteral stent removal on 08/14/24. In discussion with the patient today she reports to be doing and feeling well. She denies having had any bothersome urinary issues or concerns since her last office visit here. Recent renal imaging results were reviewed with the patient today 11/13 no hydronephrosis noted of either kidney. No nephrolithiasis noted on the right side. Left nephrolithiasis with 4 mm calcification within the left kidney. Patient discusses her longstanding history of nephrolithiasis despite attempt to increase fluid intake. We discussed obtaining 24 hour urine collection and labs for further assessment evaluation. In office urinalysis results reviewed with the patient today. When asked she denies urinary urgency, urinary frequency, incontinence, nocturia, hematuria, dysuria, foul smelling urine, changes to urinary stream, flank pain, fever, and or chills. She is happy with her current voiding parameters. She otherwise offers no other issues or concerns at this time. [facility] Medical History (Updated 11/27/24 @ 16:50 by Suad Ortega [facility]) Hydronephrosis of right kidney Hypertension Diabetes mellitus Gram-negative bacteremia Septic shock UTI (urinary tract infection) Calculus of kidney Osteoporosis Surgical History History of surgery Hx of hemorrhoidectomy H/O colonoscopy Hx of cystoscopy Hx of lithotripsy Hx of hysterectomy Family History Father Heart problem Mother No problems noted. 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 Review of Systems Const Reports no additional complaints Eyes Reports no additional complaints ENT Reports no additional complaints Card Reports as per HPI Resp Reports no additional complaints GI Reports no additional complaints Reports as per HPI Musc Reports no additional complaints Neuro Reports no additional complaints Psych Reports no additional complaints Endo Reports as per HPI Olu/Lymph Reports no additional complaints Aller/Immun Reports no additional complaints Physical Exam Const General: cooperative, healthy appearing, comfortable, no acute distress, well developed, alert and awake Orientation/consciousness: patient oriented x3 HEENT Head: Yes normal to inspection, Yes normocephalic and Yes atraumatic Ears: hearing grossly normal bilaterally Eyes General: appearance normal, both eyes and all related structures Neck Neck: Yes normal visual inspection and Yes trachea midline Chest Chest palpation & inspection: normal inspection of the chest Resp Effort & Inspection: normal respiratory effort and able to speak in complete sentences Cardio Rate: regular rate GI Inspection: Yes normal to inspection General: Yes no CVA tenderness Back/Spine/Pelvis Back: no CVA tenderness Skin General skin exam: no rashes or lesions noted Neuro General: patient oriented x3 Extrem General: Yes normal to inspection Psych Appearance: grossly normal and well kempt Mental Status: mental status grossly normal Speech and movement: Normal speech and movement present and Clear speech present Affect: normal affect Attitude: cooperative Thought process: Normal thought process present Thought content: Normal thought content present Insight: Fair insight present (Psych) Judgement: Fair judgement present (Psych) Results AMB Urinalysis, Automated UA Leukoctes 0 Reji/uL Last Edit by Bitvore on 11/27/24 14:22 UA Nitrite Last Edit by Bitvore on 11/27/24 14:22 UA Urobilinogen 0.2 mg/dL Last Edit by Bitvore on 11/27/24 14:22 UA Protein 15 mg/dL Last Edit by Bitvore on 11/27/24 14:22 UA pH 6.0 Last Edit by Bitvore on 11/27/24 14:22 UA Blood 10 Neto/uL Last Edit by Bitvore on 11/27/24 14:22 UA Specific [place] 1.015 Last Edit by Bitvore on 11/27/24 14:22 UA Ketone Last Edit by Bitvore on 11/27/24 14:22 UA Bilirubin 0 mg/dL Last Edit by Bitvore on 11/27/24 14:22 UA Glucose 250 mg/dL Last Edit by Jenny Blair on 11/27/24 14:22 Results Reviewed Results Reviewed: Laboratory Last Values Urine pH (Auto) 6.0 11/27/24 14:21 Specific [place] (Auto) 1.015 11/27/24 14:21 Urine Protein (Auto) 15 mg/dL 11/27/24 14:21 Glucose (UA)(Auto) 250 mg/dL 11/27/24 14:21 Urine Blood (Auto) 10 Neto/uL 11/27/24 14:21 Urine Bilirubin (Auto) 0 mg/dL 11/27/24 14:21 Urine Urobilinogen (Auto) 0.2 mg/dL 11/27/24 14:21 Leukocyte Esterase (Auto) 0 Reji/uL 11/27/24 14:21 Date of Service: 11/02/24 Procedure(s): US renal BI Findings: Right kidney normal size and echotexture, measuring 9.0 cm in length Left kidney normal size and echotexture, 8.1 cm length. 4 mm calcification within the left kidney. No hydronephrosis of either kidney. Normal color Doppler IMPRESSION: 1. Nonobstructing left renal calcification. Assessment & Plan Assessment & Plan (1) Calculus of kidney: Code(s): N20.0 - Calculus of kidney Category: Medical Plan In office urinalysis results reviewed the patient today; as noted above. Recent renal imaging results reviewed with the patient today; as noted above. We discussed further workup to include 24 hour urine collection and labs; however patient declines at this time. We discussed importance of management and diabetes for overall health and well- being. Will continue with surveillance monitoring. Discussed adding 1 oz of lemon juice to water daily. She currently denies any bothersome urinary issues or concerns. Will obtain renal ultrasound in 6 months. Follow-up in 6 months with imaging to be completed prior; or sooner with any issues, concerns, and or questions. Orders: Orders AMB Urinalysis Automated Today Z13.9 - Encounter for screening, unspecified US renal BI 6 Months N20.0 - Calculus of kidney Patient Instructions: The patient had an opportunity to ask questions regarding the treatment plan. All questions were answered. Physical exam, labs, and imaging were discussed and reviewed in detail. As well as risks, benefits, and discussion of treatment choices. No major barriers to understanding were identified. The patient expressed understanding and agreement with the above treatment plan. The patient was made aware they should contact our office by phone for worsening of their current condition, the appearance of new symptoms, or with any questions or concerns. Compliance is encouraged with any medications and follow up testing that is ordered. It is a privilege to be allowed the opportunity to participate in? your urological care.? Again, if you have any questions or concerns If you have any questions or concerns please do not hesitate to contact me. The office is [phone]. This note is constructed using voice recognition software. While every effort has been made to ensure accuracy scheduling administrator errors may have been included. Yours sincerely, CRYSTAL Carver Coding Level of Care Code Est Pt Level 3 (20483) Complex EM visit Add On G2211 Diagnoses Calculus of kidney N20.0
--- OUTSIDE RECORDS SUMMARY | 2024-11-27 17:04 | XMS_ITS | Clinical Summary ---
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 Active furosemide (Lasix) 40 MG tablet Take 1 tablet by mouth at bed time. 10/21/19 22 Active hydrALAZINE (Apresoline) 25 MG tablet Take 1 tablet by mouth every 12 (twelve) hours. Active triamcinolone (Kenalog) 0.1 % ointmentIndic ations:Allerg ic contact dermatitis due to adhesives Apply topically 2 times daily. 30 g 12/04/19 23 Active amLODIPine (Norvasc) 5 MG tablet Take 5 mg by mouth at bedtime. 01/14/20 23 Active D3 Super Strength 50 MCG (1999 UT) capsule Take 50 mcg by mouth in the morning. 01/14/20 23 Active valsartan (Diovan) 160 MG tablet TAKE 1 TABLET BY MOUTH EVERY MORNING 30 tablet 6 07/29/20 23 Active loratadine (Claritin) 10 MG tablet TAKE 1 TABLET BY MOUTH EVERY DAY 30 tablet 6 09/01/19 24 Active Trulicity 4.5 MG/0.5ML solution pen-injectorI ndications:Ty pe 2 diabetes mellitus without complication, with long-term current use of insulin ([facility]) INJECT ONE PEN (= 4.5MG) SUBCUTANEOUSLY ONCE A WEEK DIRECTED 2 mL 11 02/07/20 24 Active Aspirin Adult Low Strength 81 MG EC tablet TAKE 1 TABLET BY MOUTH EVERY EVENING 90 tablet 3 02/22/20 24 Active TRUEplus Lancets 33G miscIndicatio ns:Type 2 diabetes mellitus without complication, with long-term current use of insulin ([facility]) TEST BLOOD SUGAR THREE TIMES DAILY DIRECTED 100 each 11 03/13/20 24 Active estradiol (Estrace) 0.1 MG/GM vaginal cream Insert 1 g into the vagina Once per day. 1g vaginally x 14d, then twice weekly thereafter 42.5 g 06/19/20 24 2024 Active metFORMIN (Glucophage) 1000 MG tablet TAKE 1 TABLET BY MOUTH TWICE DAILY IN THE MORNING AND IN THE EVENING WITH FOOD 180 tablet 07/24/20 24 Active Easy Touch Pen [place] 31G X 8 MM misc USE DIRECTED ONCE DAILY 100 each 1 07/24/20 24 Active insulin glargine (Lantus SoloStar) 100 UNIT/ML penIndication s:Type 2 diabetes mellitus without complication, with long-term current use of insulin ([facility]) Inject 16 Units under the skin at bedtime. 15 mL 3 10/09/19 25 Active miconazole (Micatin) 2 % creamIndicati ons:Tinea Apply topically 2 times daily. 56 g 1 10/09/19 25 Active econazole nitrate 1 % creamIndicati ons:Intertrig o Apply topically 2 times daily. 85 g 10/27/19 25 Active hydrocortison e 2.5 % creamIndicati ons:Intertrig o Apply topically 2 times daily. 28 g 10/27/19 25 Active glipiZIDE (Glucotrol) 10 MG tablet TAKE 1 TABLET BY MOUTH EVERY MORNING BEFORE A MEAL 90 tablet 1 11/07/19 25 Active atorvastatin (Lipitor) 80 MG tablet TAKE 1 TABLET BY MOUTH AT BEDTIME 30 tablet 6 11/23/19 25 Active OneTouch Ultra Test test stripIndicati ons:Type 2 diabetes mellitus without complication, with long-term current use of insulin ([facility]) TEST BLOOD SUGAR THREE TIMES DAILY 100 strip 3 11/27/19 25 Active glipiZIDE (Glucotrol) 10 MG tablet TAKE 1 TABLET BY MOUTH EVERY MORNING BEFORE A MEAL 90 tablet 02/10/20 24 2024 Discontinued atorvastatin (Lipitor) 80 MG tablet TAKE 1 TABLET BY MOUTH AT BEDTIME 30 tablet 6 02/29/20 24 2024 Discontinued OneTouch Ultra Test test stripIndicati ons:Type 2 diabetes mellitus without complication, with long-term current use of insulin ([facility]) TEST BLOOD SUGAR THREE TIMES DAILY 100 strip 3 07/10/20 24 2024 Discontinued Active Problems Problem Noted Date [...] appointment 09/05/2023 Pap Smear: -pap smear wnl 2002, 2003 [...] PM EDT): S/o excision by Mian Lara ENERGY SPECIALIST Pathology showed: Variable epidermal acanthosis with focal [...] Plan (09/01/2023 9:28 AM EST): Diagnosed by [facility]. Last seen by [facility] 08/30/2023 Diabetes mellitus, type II 05/11/2012 [...] last done on: 01/21/[address] Cotton (pediatric lpn) measured her IOP and was stable so [...] Pt tells me she was vacationing in [place] and while there she was not following a diabetic diet. When reviewing her glucometer it was evident the time she was in [place] because her blood sugars were consistently high and now that she is back blood sugars have normalized Eye exam was last done on: 01/21/[address] Cotton (pediatric lpn) measured her IOP and was stable so [...] compliance with diet and meds while in [place] 3 months f/u Pt advised to: adhere [...] last done on: 01/21/[address] Cotton (pediatric lpn) measured her IOP and was stable so [...] last done on: 01/21/[address] Cotton (pediatric lpn) measured her IOP and was stable so [...] last done on: 01/21/[address] Cotton (pediatric lpn) measured her IOP and was stable so [...] last done on: 01/21/[address] Cotton (pediatric lpn) measured her IOP and was stable so [...] pt had a cardiac cath at [facility] on 05/20/2009 There was NO angiographic evidence of CAD. seen in the past at [facility]. PREVIOUSLY ADDRESSED: THE INFORMATION BELOW HAS BEEN COPIED, PASTED AND UPDATED FROM PREVIOUS NOTES. Chest discomfort (R07.89). Resolved, pt ended up having an outpt stress test 05/23/2019 that was negative for ischemia. Of note pt had a cardiac cath 2009 at [facility] that was unremarkable. 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 Pt with a Hx. of ? Paget's disease of the bone, evaluated in the past by an stiff leg operator (Dr Banuelos) who treated her initially with Actonel but she could not tolerate subsequently she was given an infusion of Reclast and remains on Vitamin D pt was lost for f/u with Dr Banuelos. Last visit we scheduled a f/u appointment. Pt was seen by a different Emergency Services Dispatcher (Dr Ferrer)who review previous notes from Dr Banuelos and new bone scan, and lab data. She was seen on 11/08/2012nd based on his impression he DID NOT think pt had Paget's disease. She was last seen by [facility] Endocrinology on 02/16/2013 (Dr Ferrer) He diagnosed [...] pt had a cardiac cath at [facility] on 05/20/2009 There was NO angiographic evidence of CAD. seen in the past at [facility]. PREVIOUSLY ADDRESSED: THE INFORMATION BELOW HAS BEEN COPIED, PASTED AND UPDATED FROM PREVIOUS NOTES. Chest discomfort (R07.89). Resolved, pt ended up having an outpt stress test 05/23/2019 that was negative for ischemia. Of note pt had a cardiac cath 2008 at [facility] that was unremarkable. 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 Pt with a Hx. of ? Paget's disease of the bone, evaluated in the past by an stiff leg operator (Dr Banuelos) who treated her initially with Actonel but she could not tolerate subsequently she was given an infusion of Reclast and remains on Vitamin D pt was lost for f/u with Dr Banuelos. Last visit we scheduled a f/u appointment. Pt was seen by a different Emergency Services Dispatcher (Dr Ferrer)who review previous notes from Dr Banuelos and new bone scan, and lab data. She was seen on 11/08/2012nd based on his impression he DID NOT think pt had Paget's disease. She was last seen by [facility] Endocrinology on 02/16/2013 (Dr Ferrer) He diagnosed [...] pt had a cardiac cath at [facility] on 05/20/2009 There was NO angiographic evidence of CAD. seen in the past at [facility]. PREVIOUSLY ADDRESSED: THE INFORMATION BELOW HAS BEEN COPIED, PASTED AND UPDATED FROM PREVIOUS NOTES. Chest discomfort (R07.89). Resolved, pt ended up having an outpt stress test 05/23/2019 that was negative for ischemia. Of note pt had a cardiac cath 2008 at [facility] that was unremarkable. 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 Pt with a Hx. of ? Paget's disease of the bone, evaluated in the past by an stiff leg operator (Dr Banuelos) who treated her initially with Actonel but she could not tolerate subsequently she was given an infusion of Reclast and remains on Vitamin D pt was lost for f/u with Dr Banuelos. Last visit we scheduled a f/u appointment. Pt was seen by a different Emergency Services Dispatcher (Dr Ferrer)who review previous notes from Dr Banuelos and new bone scan, and lab data. She was seen on 11/08/2012nd based on his impression he DID NOT think pt had Paget's disease. She was last seen by [facility] Endocrinology on 02/16/2013 (Dr Ferrer) He diagnosed [...] pt had a cardiac cath at [facility] on 05/20/2009 There was NO angiographic evidence of CAD. seen in the past at [facility]. PREVIOUSLY ADDRESSED: THE INFORMATION BELOW HAS BEEN COPIED, PASTED AND UPDATED FROM PREVIOUS NOTES. Chest discomfort (R07.89). Resolved, pt ended up having an outpt stress test 05/23/2019 that was negative for ischemia. Of note pt had a cardiac cath 2008 at [facility] that was unremarkable. 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 Pt with a Hx. of ? Paget's disease of the bone, evaluated in the past by an stiff leg operator (Dr Banuelos) who treated her initially with Actonel but she could not tolerate subsequently she was given an infusion of Reclast and remains on Vitamin D pt was lost for f/u with Dr Banuelos. Last visit we scheduled a f/u appointment. Pt was seen by a different Emergency Services Dispatcher (Dr Ferrer)who review previous notes from Dr Banuelos and new bone scan, and lab data. She was seen on 11/08/2012nd based on his impression he DID NOT think pt had Paget's disease. She was last seen by [facility] Endocrinology on 02/16/2013 (Dr Ferrer) He diagnosed [...] pt had a cardiac cath at [facility] on 05/20/2009 There was NO angiographic evidence of CAD. seen in the past at [facility]. PREVIOUSLY ADDRESSED: THE INFORMATION BELOW HAS BEEN [...] pt had a cardiac cath 2008 at [facility] that was unremarkable. 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 Examination suggestive of this Plan: Nizoral shampoo, Neutrogenal Alcona tar shampoo extra strength Referral to Dr [...] moderate stage (365.10), Chronic. Recently diagnosed by [facility]thal[facility]. last seen 03/10/2012. They recommended to continue to follow with dr. 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 Pt with a Hx. of ? Paget's disease of the bone, evaluated in the past by an stiff leg operator (Dr Banuelos) who treated her initially with Actonel but she could not tolerate subsequently she was given an infusion of Reclast and remains on Vitamin D pt was lost for f/u with Dr Banuelos. Last visit we scheduled a f/u appointment. Pt was seen by a different Emergency Services Dispatcher (Dr Ferrer)who review previous notes from Dr Banuelos and new bone scan, and lab data. She was seen on 11/08/2012nd based on his impression he DID NOT think pt had Paget's disease. She was last seen by [facility] Endocrinology on 02/16/2013 (Dr Ferrer) He diagnosed [...] equation in the estimation of LDL-C. Ciaran NATHAN et al. HITESH. 2013;310(19): 2822-1099 (http://education.Widgetbox/faq/AVY351) Chol/HDLC Ratio <5.0 (calc) 3.6 3.0 5.1??High?? [...] Encounters Date Type Department Care Team Description 11/25/[address] [address] Louie Gutierrez MD Type 2 diabetes mellitus without complication, with long-term current use of insulin (CMS/HCC) 11/22/2024 Refill [facility] [address], [place] [address] Louie Gutierrez MD 11/04/2024 Refill [facility] [address], [place] [address] Roro Reynolds DO 11/02/2024 Orders Only [facility] External Provider, [facility] 10/26/2024 11:00 AM EST Office Visit [facility] [address], [place] [address] Amado Lynch MD [employer] 10/26/2024 Travel 10/26/2024 Telephone [facility] [address], [place] [address] Louie Gutierrez MD 10/25/2024 Telephone [facility] [address] [facility] [place] [place] [address] Louie Gutierrez MD telephone call 10/09/2024 11:00 AM EST Office Visit [facility] [address], [place] [address] Louie Gutierrez MD Venous (peripheral) insufficiency (Primary Dx); Type 2 diabetes mellitus without complication, with long-term current use of insulin (CMS/[facility]); Primary hypertension; Lower leg mass, left; Kidney stone; Tinea 10/09/2024 Travel 09/28/2024 10:45 AM EST Office Visit [facility] [address], [place] [address] Amado Lynch MD [employer] (Primary Dx) 09/28/2024 Travel 09/27/2024 Telephone [facility] [address] [address] Louie Gutierrez MD Chart Prep 09/13/2024 Orders Only [facility] [address] [facility] [place] [address] Louie Gutierrez MD 09/13/2024 Patient Outreach [facility] [address] [place] [address] Louie Gutierrez MD Care Coordination (CHW outreach for SDOH PT-1 and food needs-referral completed /) 09/12/2024 Telephone [facility] [address] [facility] [place] [address] Louie Gutierrez MD Referral 09/12/2024 Telephone [facility] [address] [facility] [place], [place] [phone] Louie Gutierrez MD PT1; Results from Last 3 Months Immunizations Name Administration [...] Sign Reading Time Taken Comments Blood Pressure 138/70 10/26/2024 10:48 AM EST Pulse 64 10/26/2024 10:48 AM EST Temperature 37.1 ??C (98.7 ??F) 10/26/2024 10:[address] Respiratory Rate 18 10/26/2024 10:48 AM EST Oxygen Saturation 98% 10/09/2024 10:43 AM EST Inhaled Oxygen Concentration - - Weight 72.6 kg (160 lb) 10/26/2024 10:48 AM EST Height 152.4 cm (5') 10/26/2024 10:48 AM EST Body Mass Index 31.25 10/26/2024 10:48 AM EST Plan of Treatment Upcoming Encounters Date Type Department Care Team (Late st Contact Info) Description 12/21/2024 9:00 AM EDT Office Visit [facility] [address] [place] [address] Jennifer Fowler [address] [place] [address] 01/17/2025 10:00 AM EDT Office Visit [facility] [address] [place] [address] Louie Gutierrez MD [address] [place] [address] Health Maintenance Due Date Last Done Comments Diabetes: Foot Exam 1950 Eye Exam 1950 RSV Patients and Patients Aged 60 years or older (1 - 1-dose 75+ series) 2016 Zoster Vaccines (3 of 3) 08/12/2022 06/17/2022, 08/23 Lipid Panel 02/12/2024 02/11/2023, 04/2022, 08/26/2021, Additional [...] Screening 10/09/2025 10/09/2024 Tobacco Screening 10/09/2025 10/09/2024 Diabetes: Urine Protein Screening 10/26/2025 10/26/2024, 08/26/2021, 11/10/2020, Additional history exists Dental X-Ray: Full Mouth 05/08/2027 05/07/2024, 09/2020 Pneumococcal Vaccine: 50+ Years Completed 02/05/2016, [...] Procedure Name Priority Date/Time Associated Diagnosis Comments US RENAL BI Routine 11/02/2024 3:52 PM EDT COLLAGEN CROSS-LINKED N-TELOPEPTIDE (NTX), U Routine 11/02/2024 9:13 AM EDT ALBUMIN, RANDOM URINE W/CREATININE Routine 10/26/2024 8:36 AM EST Type 2 diabetes mellitus without complication, with long-term current use of insulin ([facility]) POCT GLYCATED HEMOGLOBIN, TOTAL Routine 10/09/2024 10:59 AM EST Type 2 diabetes mellitus without complication, with long-term current use of insulin (CMS/[facility]) POCT GLUCOSE Routine 10/09/2024 10:55 AM EST Type 2 diabetes mellitus without complication, with long-term current use of insulin (CMS/[facility]) MR TIBIA FIBULA W AND WO CONTRAST LEFT Routine 09/22/2024 7:23 AM EST BI MAMMOGRAM SCREENING TOMOSYNTHESIS BILATERAL Routine 09/13/2024 8:38 AM EST PROPHYLAXIS - ADULT Routine 05/07/2024 8 :00 AM EDT Dental calculus Dental plaque INTRAORAL - COMPLETE SERIES OF RADIOGRAPHIC IMAGES Routine 05/07/2024 8:00 AM EDT PERIODIC ORAL EVALUATION - ESTABLISHED PATIENT Routine 05/07/2024 8:00 AM EDT LIPID PANEL WITH REFLEX TO DIRECT LDL Routine 02/11/2023 9:28 AM EDT Type 2 diabetes mellitus without complication, with long-term current use of insulin (CMS/HCC) from Last 3 Months or Most Recently Relevant to Health Maintenance Results * US RENAL BI (11/02/2024 3:52 PM EDT) Anatomical Region Laterality Modality Abdomen Ultrasound 11/02/2024 3:52 PM EDT Narrative 11/02/2024 3:53 PM EDT ? [facility] ?[address] ?[place] [address] ? Ultrasound Report ? Signed ? Patient: Yusra Rodriguez ?MR#: [id number] ?? 3 ? : 1940 ?Acct:[id number] ? Age/Sex: 84 / F ?ADM Date: 11/02/24 ? Loc: HO.US ? Attending Dr: Suad TREADWELLBC ? Ordering Physician: Suad Ortega ?? Date of Service: 11/02/24 ?? Procedure(s): US renal BI ?? Accession Number(s): [id number] ? cc: Louie Narayanan MD; Suad Ortega-BC ? CLINICAL HISTORY: N20.0 - Calculus of kidney ? US Renal ? Comparison: None ? Findings: ?? Right kidney normal size and echotexture, measuring 9.0 cm in length ?? Left kidney normal size and echotexture, 8.1 cm length. 4 mm calcification ?? within the left kidney. ? No hydronephrosis of either kidney. Normal color Doppler ? IMPRESSION: ?? 1. Nonobstructing left renal calcification. ? This document has been electronically signed by: Christian Iraheta MD on ?? 11/02/2024 15:52:01 ? Dictated By: ?Christian Iraheta MD ? Signed By: ?<Electronically signed by Christian Iraheta MD in OV> ? 11/02/24 155 ? DD/ 51 ? TD/TT: 11/02/24 1552 ? Estate Attorney: ? Procedure Note Donottylerter, Image - 11/02/[address] [address] Ultrasound Report Signed Patient: Yusra Rodriguez JMR#: [id number] 3 : 1940cct:[id number] Age/Sex: 84 / FADM Date: 11/02/24 Loc: HO.US Attending Dr: Suad ROJAS Ordering Physician: Suad Ortega Date of Service: 11/02/24 Procedure(s): US renal BI Accession Number(s): [id number] cc: Louie Narayanan MD; Suad Ortega CLINICAL HISTORY: N20.0 - Calculus of kidney US Renal Comparison: None Findings: Right kidney normal size and echotexture, measuring 9.0 cm in length Left kidney normal size and echotexture, 8.1 cm length. 4 mm calcification within the left kidney. No hydronephrosis of either kidney. Normal color Doppler IMPRESSION: 1. Nonobstructing left renal calcification. This document has been electronically signed by: Christian Iraheta MD on 11/02/2024 15:52:01 Dictated By: Christian Iraheta MD Signed By: <Electronically signed by Christian Iraheta MD in OV> 11/02/24 155 DD/ 155 TD/TT: 11/02/241551 Estate Attorney: [facility] External Provider IMG US PROCEDURES Final Result * Collagen Cross-Linked N-Telopeptide (NTx), U (11/02/2024 9:13 AM EDT) N Telopetide (NTx) 29 see note H [facility] Comment:Result Units: nM BCE /mM creatPremenopausal Females: 4 - 64 nM BCE/mM creatResults are primarily used for monitoring theresponse to therapy. A value within thepremenopausal range does not rule out osteoporosisnor the need for therapyUnits of Measure: nM BCE/mM creat CREATININE, RANDOM URINE 144 20 - 275 mg/dL [facility] Comment:THIS TEST WAS PERFOR MED AT:[employer] [id number] [place] [address]MOCHYIQMYLES FRITZ MD,PHD 11/02/2024 9:13 AM EDT 11/02/2024 10:37 AM EDT us Generic External Data Provider LAB URINE ORDERAB LES Final Result Performing Organization Address [facility]/ZIP Co de Phone Number [facility] [address] [place] [phone] * Albumin, Random Urine W/Creatinine (10/26/2024 8:36 AM EST) Creatinine, Urine 86.79 mg/dL [facility] Microalbumin Urine 9.0 mg/L [facility] Microalbum Creatinine Ratio Ur 10.3 <30 ug/mg cr [facility] Comment:Albumin/Creatinine R atio Reference Ranges: Normal: < 30 ug/mg creatinine Microalbuminuria: 30 - 300 ug/mg creatinineClinical Albuminuria: > 300 ug/mg creatinine Urine (Urine, Random) 10/26/2024 8:36 AM EST 10/26/2024 8:54 AM EST us Louie Whalen MD LAB URINE ORDERABLES Final Result Performing Organization Address [facility]/ZIP Co de Phone Number [facility] [address] [place] [phone] * (ABNORMAL) POCT HGB A1C (10/09/2024 10:59 AM EST) Pathologist [facility] Hemoglobin A1C 9.3(A) 4.0 - 6.0 % QC Media Lot # [id number] Lot# Expiration Date Blood 10/09/2024 10:5 9 AM EST Louie Whalen MD POINT OF CARE TEST EN TER/EDIT ORDERABLES Final Result * POCT Glucose (10/09/2024 10:55 AM EST) Pathologist [facility] Glucose Blood, POC 128 60 - 200 mg/dL QC Media Lot # [id number] Lot# Expiration Date ,025 Blood Capillary blood specimen / Unknown 10/09/2024 10:55 AM EST Louie Whalen MD POINT OF CARE TEST EN TER/EDIT ORDERABLES Final Result * MR Maryjane Tinoco w/ and w/o Contrast Left (09/22/2024 7:23 AM EST) Anatomical Region Laterality Modality Lower Extremities, Lower Leg Left Mag netic Resonance 09/22/2024 7:23 AM EST Narrative 09/22/2024 7:25 AM EST ? [facility] ?[address] ?[place] [address] ? Magnetic Resonance Report ? Signed ? Patient: Rodriguez,Yusra J ?MR#: [id number] ?? 3 ? : 1940 ?Acct:[id number] ? Age/Sex: 83 / F ?ADM Date: 09/21/24 ? Loc: HO.MRI ? Attending Dr: Louie Narayanan MD ? Ordering Physician: Louie Narayanan MD ?? Date of Service: 09/21/24 ?? Procedure(s): MR Tibia LT wo/w Contrast ?? Accession Number(s): [id number] ? cc: Louie Narayanan MD ? CLINICAL [...] by Leonardo Torres MD in OV> ? 09/22/2424 ? DD/ 2 ? TD/TT: 09/22/[address] ? Estate Attorney: ? Procedure Note Donotjuan carlosinterpreter, Image - 09/22/2024 [place] [address] Magnetic Resonance Report Signed Patient: Yusra Rodriguez JMR#: [id number] 3 : 2Acct:[id number] Age/Sex: 83 / FADM Date: 09/21/24 Loc: HO.MRI Attending Dr: Louie Narayanan MD Ordering Physician: Louie Narayanan MD Date of Service: 09/21/24 Procedure(s): MR Tibia LT wo/w Contrast Accession Number(s): [id number] cc: Louie Narayanan MD CLINICAL HISTORY: LOCALIZED [...] in OV> 09/22/24723 DD/ 2 TD/TT: 09/22/24722 Estate Attorney: Louie Whalen MD IMG MRI PROCEDURES Fi nal Result * BI Mammogram Screening Tomosynthesis Bilateral (09/13/2024 8:38 AM EST) Anatomical Region Laterality Modality Breast Bilateral Mammography 09/13/2024 8:38 AM EST Narrative 09/21/2024 4:45 PM EST ? [facility] ? [address] ?[place], [place] [address] ? Mammography Report ? Signed ? Patient: Rodriguez,Yusra J ?MR#: [id number] ?? 3 ? : 1940 ?Acct:[id number] ? Age/Sex: 83 / F ?ADM Date: 09/13/24 ? Loc: HO.MAMMO ? Attending Dr: Louie Narayanan MD ? Ordering Physician: Louie Narayanan MD ?Resu ?? lts: 1Negative ? Date of Service: 09/13/24 ?Follow Up: 1 Year From Orig ?? inal Mammogram ? Procedure(s): MM tomosynthesis screening BI ?? Accession Number(s): [id number] ? cc: Louie Narayanan MD ? EXAMINATION: [...] in OV> ? 09/21/24 1642 ? DD/ ? TD/TT: 09/13/2453 ? Estate Attorney: ? Procedure Note Ralph Eubanks - 09/21/2024 Fatimah [facility] [address] [place] [address] Mammography Report Signed Patient: Yusra Rodriguez JMR#: [id number] 3 : 2Acct:[id number] Age/Sex: 83 / FADM Date: 09/13/24 Loc: [facility] Attending Dr: Louie Narayanan MD Ordering Physician: Louie Narayanan MDResu lts: 1Negative Date of Service: 09/13/24Follow Up: 1 Year From Orig inal Mammogram Procedure(s): MM tomosynthesis screening BI Accession Number(s): [id number] cc: Louie Narayanan MD EXAMINATION: MM SCREENING [...] by: Judi Navarro DO 09/21/2024 04:42 PM [facility] [place] Dictated By: Judi Navarro DO Signed By: <Electronically signed by Judi Navarro DO in OV> 09/21/24 1642 DD/ 0838 TD/TT: 09/13/24 0853 Estate Attorney: Louie Whalen MD IM BI PROCEDURES Fin al Result * (ABNORMAL) Lipid Panel with Reflex to Direct LDL (02/11/2023 9:28 AM EDT) Cholesterol, Total 175 <200 mg/dL [facility] [place] [facility] HDL Cholesterol 48(L) > OR = 50 mg/dL [facility] [place] [facility] Triglycerides 263(H) <150 mg/dL [facility] Comment: If a non-fasting specimen was collected, consider repeat triglyceride testing on a fasting specimen if clinically indicated. Simón et al. J. of Clin. Lipidol. 2015;9:129-169. LDL Cholesterol 92 mg/dL (calc) [facility] [place] [facility] Comment: Reference range: <100 Desirable range <100 mg/dL for primary prevention; ?? <70 mg/dL for patients with CHD or diabetic patients with > or = 2 CHD risk factors. LDL-C is now calculated using the Ciaran-Strong calculation, which is a validated novel method providing better accuracy than the Friedewald equation in the estimation of LDL-C. Ciaran SS et al. HITESH. 2013;310(19): 6077-2360 (http://education.Widgetbox/faq/VYM246) Chol/HDLC Ratio 3.6 <5.0 (calc) [facility] [place] [facility] Non-HDL Cholesterol 127 <130 mg/dL (calc) [facility] [place] [facility] Comment: For patients with diabetes plus 1 major ASCVD risk factor, treating to a non-HDL-C goal of <100 mg/dL (LDL-C of <70 mg/dL) is considered a therapeutic option. 02/11/2023 9:28 AM EDT 02/11/2023 9:29 AM EDT Narrative [facility] - 02/11/2023 7:45 PM EDT FASTING:NO FASTING: NO Louie Whalen MD LAB BLOOD ORDERABLES Final Result [facility] [address], [place] [address] [facility] [place] [facility] [address] [place] [address] from Last 3 Months or Most Recently Relevant to Health Maintenance Insurance DENTAL - [facility] Care Teams Shotgun Shell Assembly Machine Adjuster Relationship Specialty Start Date End Date Louie Gutierrez MD [address] [place] [id number] PCP - General Internal Medicine 06/13/13 Fatimah Fabiola 08/09/24
--- OUTSIDE RECORDS SUMMARY | 2024-11-27 17:04 | XMS_ITS | Encounter Summary ---
Author Organization [employer] Address [address] [facility] 7t [place] [address] Care Team Providers Care Propellant Charge Loader Name Role Phone Louie Gutierrez MD Primary Care Provide r Reason for Visit * Reason Comments Med Refill Encounter Details Date Type Department Care Team ([facility] st Contact Info) Description 11/22/2024 Refill [facility] MEDICINE [address] [place], [place] [phone] Louie Gutierrez MD [address] [place], [place] [phone] Social History Tobacco Use Types Packs/Day Years [...] [facility] [address] [place] [address] Malcolm, Jennifer [address] [place] [address] 01/17/2025 10:00 AM EDT Office Visit [facility] MEDICINE [address] [place] [address] Louie Gutierrez MD [address] [place] [address] documented as of this encounter Visit Diagnoses Not on filedocumented in this encounter Additional Health Concerns Assessment Noted Time PHQ-9 Depression Total Score: 1 05/31/20 24 1:55 PM EDT documented as of this encounter Care Teams Propellant Charge Loader Relationship Specialty Start Date End Date Louie Gutierrez MD [address] [place] [phone] PCP - General Internal Medicine 06/13/13 Fatimah MARI 08/09/24 documented as of this encounter
--- OUTSIDE RECORDS SUMMARY | 2024-11-27 17:04 | XMS_ITS | Encounter Summary ---
Author Organization [employer] Address [address] [facility] 7t [place] [address] Care Team Providers Care Data Services Developer Name Role Phone Louie Gutierrez MD Primary Care Provide r Reason for Visit * Reason Comments Med Refill Encounter Details Date Type Department Care Team ([facility] st Contact Info) Description 11/25/2024 Refill [facility] MEDICINE [address] [place], [place] [phone] Louie Gutierrez MD [address] [place] [address] Type 2 diabetes mellitus without complication, with long-term current use of insulin ([facility]) Social History Tobacco Use Types Packs/Day Years [...] Office Visit [facility] ADULT DENTAL [address] [place] [address] Malcolm, Jennifer [address] [place] [address] 01/17/2025 10:00 AM EDT Office Visit [facility] MEDICINE [address] [place] [address] Louie Gutierrez MD [address] [place] [phone] documented as of this encounter Visit Diagnoses Diagnosis Type 2 diabetes mellitus without complication, with long-term current use of insulin ([facility]) documented in this encounter Additional Health Concerns Assessment Noted Time PHQ-9 Depression Total Score: 1 05/31/20 24 1:55 PM EDT documented as of this encounter Care Teams Data Services Developer Relationship Specialty Start Date End Date Louie Gutierrez MD [address] [place] [id number] PCP - General Internal Medicine 06/13/13 Fatimah [facility] 08/09/24 documented as of this encounter
--- OUTSIDE RECORDS SUMMARY | 2024-11-27 17:04 | XMS_ITS | Encounter Summary ---
Author Organization [employer] Address [address] [facility] 7t [place] [address] Care Team Providers Care Trauma Surgeon Name Role Phone Louie Gutierrez MD Primary Care Provide r Encounter Details Date Type Department Care Team (Late st Contact Info) Description 12/07/2022 Orders Only [facility] CHC MED & PEDS [address] [place], [place] [phone] Roro Gregg LPN Social History Tobacco Use [...] Description 12/21/2024 9:00 AM EDT Office Visit [facility] ADULT DENTAL [address] [place], [place] [phone] Jennifer Fowler [address] [place] [address] 01/17/2025 10:00 AM EDT Office Visit [facility] MEDICINE [address] [place], [place] [phone] Louie Gutierrez MD [address] [place] [address] documented as of this encounter Visit Diagnoses Not on filedocumented in this encounter Care Teams Trauma Surgeon Relationship Specialty Start Date End Date Louie Gutierrez MD [address] [place] [address] PCP - General Internal Medicine 06/13/13 Fatimah A 08/09/24 documented as of this encounter
--- OUTSIDE RECORDS SUMMARY | 2024-11-27 17:04 | XMS_ITS | Encounter Summary ---
Author Organization [employer] Address [address] [facility] 7 [place] [address] Care Team Providers Care Housekeeping Manager Name Role Phone Louie Gutierrez MD Primary Care Provide r Encounter Details Date Type Department Care Team (Latest Contact Info) Description 07/02/2022 Abstract [facility] CONVERSIONS Dental, Provider, DDS Social [...] Description 12/21/2024 9:00 AM EDT Office Visit [facility] ADULT DENTAL [address] [place] [address] Jennifer Fowler [address] [place] [address] 01/17/2025 10:00 AM EDT Office Visit [facility] MEDICINE [address] [place] [address] Louie Gutierrez MD [address] [place] [address] documented as of this encounter Visit Diagnoses Not on filedocumented in this encounter Care Teams Housekeeping Manager Relationship Specialty Start Date End Date Louie Gutierrez MD [address] [place] [id number] PCP - General Internal Medicine 06/13/13 Fatimah MARI 08/09/24 documented as of this encounter
--- OUTSIDE RECORDS SUMMARY | 2024-11-27 17:04 | XMS_ITS | Encounter Summary ---
Author Organization [employer] Address [address] [facility] 7 [place] [address] Care Team Providers Care Electronic Lab Technician Name Role Phone oLuie Gutierrez MD Primary Care Provide r Encounter Details Date Type Department Care Team (Latest Contact Info) Description 10/20/2020 Abstract [facility] CONVERSIONS Dental, Provider, DDS Social [...] 9:00 AM EDT Office Visit [facility] ADULT DENTAL [address] [place] [address] Jennifer Fowler [address] [place] [address] 01/17/2025 10:00 AM EDT Office Visit [facility] MEDICINE [address] [place] [address] Louie Gutierrez MD [address] [place] [address] documented as of this encounter Visit Diagnoses Not on filedocumented in this encounter Care Teams Electronic Lab Technician Relationship Specialty Start Date End Date Louie Gutierrez MD [address] [place] [id number] PCP - General Internal Medicine 06/13/13 Fatimah MARI 08/09/24 documented as of this encounter
--- OUTSIDE RECORDS SUMMARY | 2024-11-27 17:04 | XMS_ITS | Encounter Summary ---
Author Organization [employer] Address [address] [facility] 7t [place] [address] Care Team Providers Care Statistical Machine Mechanic Name Role Phone Louie Gutierrez MD Primary Care Provide r Reason for Visit * Reason Comments Med Refill Encounter Details Date Type Department Care Team ([facility] st Contact Info) Description 09/01/2023 Refill [facility] MEDICINE [address] [place], [place] [phone] Louie Gutierrez MD [address] [place], [place] [phone] Social History Tobacco Use Types Packs/Day Years [...] Description 12/21/2024 9:00 AM EDT Office Visit [facility] ADULT DENTAL [address] [place] [address] Malcolm Jennifer [address] [place] [address] 01/17/2025 10:00 AM EDT Office Visit [facility] MEDICINE [address] [place] [address] Louie Gutierrez MD [address] [place] [address] documented as of this encounter Visit Diagnoses Not on filedocumented in this encounter Additional Health Concerns Assessment Noted Time PHQ-9 Depression Total Score: 0 02/04/20 23 2:31 PM EDT documented as of this encounter Care Teams Statistical Machine Mechanic Relationship Specialty Start Date End Date Louie Gutierrez MD [address] [place] [address] PCP - General Internal Medicine 06/13/13 Fatimah GOODWINA 08/09/24 documented as of this encounter
== END 2024-11-27 14:38 | disposition home or self-care (01) ==
LOC: HO.HUSH 13:56
PROVIDERS: PCP Internal Medicine; Visit Provider Nurse Practitioner Family
DX: Z13.9 Encounter for screening, unspecified (principal); N20.0 Calculus of kidney
CPT/HCPCS: 99213; G2211

== ENCOUNTER → 2024-11-27 13:56 | Outpatient (BNVA) | payer OTHER, SELFPAY | PROVIDERS: PCP Internal Medicine; Visit Provider Nurse Practitioner Family | DX: N20.0 Calculus of kidney (principal) | CPT/HCPCS: 81003; 99212 ==

== ENCOUNTER 2024-12-12 09:12 | Outpatient (REF) | payer OTHER, SELFPAY ==
--- NOTE | ~2024-12-12 | XR_ITS ---
EXAMINATION: XR TIBIA AND FIBULA, RIGHT CLINICAL INFORMATION: PAIN COMPARISON: March 10, 2018. TECHNIQUE: AP and lateral views of the right tibia and fibula were obtained. FINDINGS: No acute cortical disruption. There is an endplate depressed deformity involving the medial tibial plateau with associated sclerosis and the articular surface. No lytic or blastic lesions. 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 Electronically signed by: Maurisio Downey MD 12/12/2024 09:30 AM EDT
--- OUTSIDE RECORDS SUMMARY | 2024-12-12 10:04 | XMS_ITS | Encounter Summary ---
Author Organization [employer] Address [address] [facility] [address] [place] [address] Care Team Providers Care Order To Delivery Supervisor Name Role Phone Louie Gutierrez MD Primary Care Provide r Encounter Details Date Type Department Care Team (Latest Contact Info) Description 12/12/2024 Travel Social History Tobacco Use Types Packs/Day [...] 9:00 AM EDT Office Visit [facility] ADULT DENTAL [address] [place] [address] Malcolm Jennifer [address] [place] [address] 01/17/2025 10:00 AM EDT Office Visit [facility] MEDICINE [address] [place] [address] Louie Gutierrez MD [address] [place] [address] documented as of this encounter Visit Diagnoses Not on filedocumented in this encounter Additional Health Concerns Assessment Noted Time PHQ-9 Depression Total Score: 1 05/31/20 24 1:55 PM EDT documented as of this encounter Care Teams Order To Delivery Supervisor Relationship Specialty Start Date End Date Louie Gutierrez MD [address] [place] [address] PCP - General Internal Medicine 06/13/13 Fatimah GOODWINA 08/09/24 documented as of this encounter
--- OUTSIDE RECORDS SUMMARY | 2024-12-12 10:04 | XMS_ITS | Clinical Summary ---
Author Organization [employer] Address [address] [place] [address] Care Team Providers Care Physical Education Professor Name Role Phone Louie Gutierrez MD Primary [...] complication, with long-term current use of insulin ([facility]) INJECT ONE PEN (= 4.5MG) SUBCUTANEOUSLY ONCE A WEEK DIRECTED 2 mL 11 02/07/20 24 Active Aspirin Adult Low Strength 81 MG EC tablet TAKE 1 TABLET BY MOUTH EVERY EVENING 90 tablet 3 02/22/20 24 Active TRUEplus Lancets 33G miscIndicatio ns:Type 2 diabetes mellitus without complication, with long-term current use of insulin ([facility]) TEST BLOOD SUGAR THREE TIMES [...] tablet 07/24/20 24 Active Easy Touch Pen [place] 31G X 8 MM misc USE DIRECTED ONCE DAILY 100 each 1 07/24/20 24 Active insulin glargine (Lantus SoloStar) 100 UNIT/ML penIndication s:Type 2 diabetes mellitus without complication, with long-term current use of insulin ([facility]) Inject 16 Units under the [...] complication, with long-term current use of insulin ([facility]) TEST BLOOD SUGAR THREE TIMES DAILY 100 strip 3 11/27/19 25 Active bacitracin-po lymyxin b (Polysporin) ointment Apply topically 2 times daily. Apply to affected area daily 30 g 12/13/19 25 Active acetaminophen (Tylenol) 500 MG tablet Take 2 tablets (1,000 mg) by mouth every 6 (six) hours if needed for moderate pain or fever for up to 25 doses. 50 tablet 12/13/19 25 Active atorvastatin (Lipitor) 80 MG tablet TAKE 1 TABLET BY MOUTH AT BEDTIME 30 tablet 6 02/29/20 24 2024 Discontinued OneTouch Ultra Test test stripIndicati ons:Type 2 diabetes mellitus without complication, with long-term current use of insulin ([facility]) TEST BLOOD SUGAR THREE TIMES [...] Mammo 09/05/2023Normal. Pap Smear: -pap smear wnl 2002, 2003 and 2005 with h/o hysterectomy and no [...] Smear: -pap smear wnl 2002, 2003 and 2005 with h/o hysterectomy and no [...] Plan (09/01/2023 9:28 AM EST): Diagnosed by [facility]. Last seen by [facility] 08/30/2023 Diabetes mellitus, type II 05/11/2012 [...] last done on: 01/21/[address] Cotton (tool procurement coordinator) measured her IOP and was stable so [...] Pt tells me she was vacationing in [place] and while there she was not following a diabetic diet. When reviewing her glucometer it was evident the time she was in [place] because her blood sugars were consistently high and now that she is back blood sugars have normalized Eye exam was last done on: 01/21/[address] Cotton (tool procurement coordinator) measured her IOP and was stable so [...] compliance with diet and meds while in [place] 3 months f/u Pt advised to: adhere [...] last done on: 01/21/[address] Cotton (tool procurement coordinator) measured her IOP and was stable so [...] last done on: 01/21/[address] Cotton (tool procurement coordinator) measured her IOP and was stable so [...] last done on: 01/21/[address] Cotton (tool procurement coordinator) measured her IOP and was stable so [...] last done on: 01/21/[address] Cotton (tool procurement coordinator) measured her IOP and was stable so [...] note pt had a cardiac cath at [facility] on 05/20/2009 There was NO angiographic evidence of CAD. seen in the past at [facility]. PREVIOUSLY ADDRESSED: THE INFORMATION BELOW HAS BEEN COPIED, PASTED AND UPDATED FROM PREVIOUS NOTES. Chest discomfort (R07.89). Resolved, pt ended up having an outpt stress test 05/23/2019 that was negative for ischemia. Of note pt had a cardiac cath 2008 at [facility] that was unremarkable. 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 Pt with a Hx. of ? Paget's disease of the bone, evaluated in the past by an chemical production machine operator (Dr Banuelos) who treated her initially with Actonel but she could not tolerate subsequently she was given an infusion of Reclast and remains on Vitamin D pt was lost for f/u with Dr Banuelos. Last visit we scheduled a f/u appointment. Pt was seen by a different Relief Manager (Dr Ferrer)who review previous notes from Dr Banuelos and new bone scan, and lab data. She was seen on 11/08/2012 based on his impression he DID NOT think pt had Paget's disease. She was last seen by [facility] Endocrinology on 02/16/2013 (Dr Ferrer) He diagnosed [...] note pt had a cardiac cath at [facility] on 05/20/2009 There was NO angiographic evidence of CAD. seen in the past at [facility]. PREVIOUSLY ADDRESSED: THE INFORMATION BELOW HAS BEEN COPIED, PASTED AND UPDATED FROM PREVIOUS NOTES. Chest discomfort (R07.89). Resolved, pt ended up having an outpt stress test 05/23/2019 that was negative for ischemia. Of note pt had a cardiac cath 2008 at [facility] that was unremarkable. 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 Pt with a Hx. of ? Paget's disease of the bone, evaluated in the past by an chemical production machine operator (Dr Banuelos) who treated her initially with Actonel but she could not tolerate subsequently she was given an infusion of Reclast and remains on Vitamin D pt was lost for f/u with Dr Banuelos. Last visit we scheduled a f/u appointment. Pt was seen by a different Relief Manager (Dr Ferrer)who review previous notes from Dr Banuelos and new bone scan, and lab data. She was seen on 11/08/2012nd based on his impression he DID NOT think pt had Paget's disease. She was last seen by [facility] Endocrinology on 02/16/2013 (Dr Ferrer) He diagnosed [...] note pt had a cardiac cath at [facility] on 05/20/2009 There was NO angiographic evidence of CAD. seen in the past at [facility]. PREVIOUSLY ADDRESSED: THE INFORMATION BELOW HAS BEEN COPIED, PASTED AND UPDATED FROM PREVIOUS NOTES. Chest discomfort (R07.89). Resolved, pt ended up having an outpt stress test 05/23/2019 that was negative for ischemia. Of note pt had a cardiac cath 2008 at [facility] that was unremarkable. 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 Pt with a Hx. of ? Paget's disease of the bone, evaluated in the past by an chemical production machine operator (Dr Banuelos) who treated her initially with Actonel but she could not tolerate subsequently she was given an infusion of Reclast and remains on Vitamin D pt was lost for f/u with Dr Banuelos. Last visit we scheduled a f/u appointment. Pt was seen by a different Relief Manager (Dr Ferrer)who review previous notes from Dr Banuelos and new bone scan, and lab data. She was seen on 11/08/2012nd based on his impression he DID NOT think pt had Paget's disease. She was last seen by [facility] Endocrinology on 02/16/2013 (Dr Ferrer) He diagnosed [...] note pt had a cardiac cath at [facility] on 05/20/2009 There was NO angiographic evidence of CAD. seen in the past at [facility]. PREVIOUSLY ADDRESSED: THE INFORMATION BELOW HAS BEEN COPIED, PASTED AND UPDATED FROM PREVIOUS NOTES. Chest discomfort (R07.89). Resolved, pt ended up having an outpt stress test 05/23/2019 that was negative for ischemia. Of note pt had a cardiac cath 2009 at [facility] that was unremarkable. 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 Pt with a Hx. of ? Paget's disease of the bone, evaluated in the past by an chemical production machine operator (Dr Banuelos) who treated her initially with Actonel but she could not tolerate subsequently she was given an infusion of Reclast and remains on Vitamin D pt was lost for f/u with Dr Banuelos. Last visit we scheduled a f/u appointment. Pt was seen by a different Relief Manager (Dr Ferrer)who review previous notes from Dr Banuelos and new bone scan, and lab data. She was seen on 11/08/2012 based on his impression he DID NOT think pt had Paget's disease. She was last seen by [facility] Endocrinology on 02/16/2013 (Dr Ferrer) He diagnosed [...] note pt had a cardiac cath at [facility] on 05/20/2009 There was NO angiographic evidence of CAD. seen in the past at [facility]. PREVIOUSLY ADDRESSED: THE INFORMATION BELOW [...] pt had a cardiac cath 2008 at [facility] that was unremarkable. 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 Examination suggestive of this Plan: Nizoral shampoo, Neutrogenal Day tar shampoo extra strength Referral to Dr [...] moderate stage (365.10), Chronic. Recently diagnosed by [facility]. last seen 03/10/2012. They recommended to continue to follow with dr. 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 Pt with a Hx. of ? Paget's disease of the bone, evaluated in the past by an chemical production machine operator (Dr Banuelos) who treated her initially with Actonel but she could not tolerate subsequently she was given an infusion of Reclast and remains on Vitamin D pt was lost for f/u with Dr Banuelos. Last visit we scheduled a f/u appointment. Pt was seen by a different Relief Manager (Dr Ferrer)who review previous notes from Dr [...] ?? LDL-C is now calculated using the Christa calculation, which is a validated novel method providing better accuracy than the Friedewald equation in the estimation of LDL-C. Ciaran NATHAN et al. HITESH. 2013;310(19): 6316-3070 (http://education.Callision/faq/ANQ586) Chol/HDLC Ratio <5.0 (calc) 3.6 3.0 5.1??High?? [...] Encounters Date Type Department Care Team Description 12/12/2024 8:40 AM EDT Office Visit [facility] [address] Injury of right lower extremity, initial encounter (Primary Dx); Abrasion of right lower extremity, initial encounter; Right leg pain; Acute right ankle pain; Hypertension, unspecified type; Encounter for immunization 12/12/2024 Travel 11/25/2024 Refill [facility] [place] [place] [address] Louie Gutierrez MD Type 2 diabetes mellitus without complication, with long-term current use of insulin (CMS/HCC) 11/22/2024 Refill [facility] [place] [address] Louie Gutierrez MD 11/04/2024 Refill [facility] [place] [address] Roro Reynolds DO 11/02/2024 Orders Only [facility] External Provider, [facility] 10/26/2024 11:00 AM EST Office Visit [facility] [place] [address] Amado Lynch MD [employer] 10/26/2024 Travel 10/26/2024 Telephone [facility] [place] [address] Louie Gutierrez MD 10/25/2024 Telephone [facility] [place] [address] Louie Gutierrez MD telephone call 10/09/2024 11:00 AM EST Office Visit [facility] [place] [address] Louie Gutierrez MD Venous (peripheral) insufficiency (Primary Dx); Type 2 diabetes mellitus without complication, with long-term current use of insulin (CMS/HCC); Primary hypertension; Lower leg mass, left; Kidney stone; Tinea 10/09/2024 Travel 09/28/2024 10:45 AM EST Office Visit [facility] [address] [facility] [place] [address] Amado Lynch MD [employer] (Primary Dx) 09/28/2024 Travel 09/27/2024 Telephone [facility] [place] [place] [address] Louie Gutierrez MD Chart Prep 09/13/2024 Orders Only [facility] [place], [place] [phone] Louie Gutierrez MD 09/13/2024 Patient Outreach [facility] [place], [place] [phone] Louie Gutierrez MD Care Coordination ([facility] outreach for SDOH PT-1 and food needs-referral completed /) from Last 3 Months Immunizations Name Administration [...] tox oid, preservative free, adsorbed 05/08/2004,04/28/1993 Tdap 12/12/2024,03/13/2015 Zoster, Recombinant 06/17/2022 Zoster, live 09/12/2014 Social [...] Sign Reading Time Taken Comments Blood Pressure 169/85 12/12/2024 9:04 AM EDT Pulse 78 12/12/2024 8:38 AM EDT Temperature 36.6 ??C (97.8 ??F) 12/12/2024 8:38 AM ED T Respiratory Rate 18 12/12/2024 8:38 AM EDT Oxygen Saturation 97% 12/12/2024 8:38 AM EDT Inhaled Oxygen Concentration - - Weight 71.7 kg (158 lb) 12/12/2024 8:38 AM EDT Height 152.4 cm (5') 10/26/2024 10:48 AM EST Body Mass Index 30.86 10/26/2024 10:48 AM EST Plan of Treatment Upcoming Encounters Date Type Department Care Team (Late st Contact Info) Description 12/21/2024 9:00 AM EDT Office Visit [facility] [address] [place] [address] Ulises Fowleraris [address] [place] [address] 01/17/2025 10:00 AM EDT Office Visit [facility] [address] [place] [address] Louie Gutierrez MD [address] [place] [address] Health Maintenance Due Date Last Done Comments Diabetes: Foot Exam 1950 Eye Exam 1950 RSV Patients and Patients Aged 60 years or older (1 - 1-dose 75+ series) 2016 Zoster Vaccines (3 of 3) 08/12/2022 06/17/2022, 08/23 Lipid Panel 02/12/2024 02/11/2023, 06/0 04/2022, 08/26/2021, Additional history exists COVID-19 Vaccine ( season) 2024 11/14/2020, 10/17/2020 Dental Oral Exam 11/05/2024 05/07/2024, , 07/02/2022, Additional history exists Dental Prophylaxis 11/05/2024 05/07/2024, 0 09/15/2023, 07/02/2022, Additional history exists Diabetes: Hemoglobin A1C 01/06/2025 025, 05/31/2024, 12/01/2023, Additional history exists Dental X-Ray: Bitewings 05/08/2025 05/07/20 24, 12/01/2023, 09/15/2023, Additional history exists Depression Screening 05/31/2025 05/31/2024, 05/31/20 24 Mammogram 09/13/2025 09/13/2024, 08/22, 09/02/2022, Additional history exists Alcohol/Substance Use Screening 10/09/2025 10/09/2024 SDOH Screening 10/09/2025 10/09/2024 Diabetes: Urine Protein Screening 10/26/2025 10/26/2024, 08/26/2021, 11/10/2020, Additional history exists Tobacco Screening 12/12/2025 12/12/2024 Dental X-Ray: Full Mouth 05/08/2027 05/07/2024, 02/09/2020 DTaP/Tdap/Td Vaccines (3 - Td or Tdap) 12/12/2034 12/12/2024, 03/13/2015, 05/08/2004, Additional history exists Pneumococcal Vaccine: 50+ Years Completed 02/05/2016, 09/12/2014 [...] Procedure Name Priority Date/Time Associated Diagnosis Comments XR TIBIA FIBULA 2 VIEWS RIGHT Routine 12/12/2024 9:13 AM EDT Injury of right lower extremity, initial encounter Right leg pain Acute right ankle pain US RENAL BI Routine 11/02/2024 3:52 PM EDT COLLAGEN CROSS-LINKED N-TELOPEPTIDE (NTX), U Routine 11/02/2024 9:13 AM EDT ALBUMIN, RANDOM URINE W/CREATININE Routine 10/26/2024 8:36 AM EST Type 2 diabetes mellitus without complication, with long-term current use of insulin ([facility]) POCT GLYCATED HEMOGLOBIN, TOTAL Routine 10/09/2024 10:59 AM EST Type 2 diabetes mellitus without complication, with long-term current use of insulin ([facility]) POCT GLUCOSE Routine 10/09/2024 10:55 AM EST Type 2 diabetes mellitus without complication, with long-term current use of insulin (CMS/HCC) MR TIBIA FIBULA W AND WO CONTRAST [...] complication, with long-term current use of insulin ([facility]) from Last 3 Months or Most Recently Relevant to Health Maintenance Results * XR Tibia Fibula 2 Views Right (12/12/2024 9:13 AM EDT) Anatomical Region Laterality Modality Lower Extremities, Lower Leg Right Rad iographic Imaging 12/12/2024 9:13 AM EDT Narrative 12/12/2024 9:33 AM EDT ?[facility] ?[address] ?[place] [address] ?XRay Report ? Signed ? Patient: Rodriguez,Yusra J ?MR#: [id number] ?? 3 ? : 1940 ?Acct:[id number] ? Age/Sex: 84 / F ?ADM Date: 04/23/25 ? Loc: HO.HHCX ? Attending Dr: Kolton Escalona MD ? Ordering Physician: KOLTON ESCALONA MD ?? Date of Service: 12/12/24 ?? Procedure(s): XR tibia fibula RT 2V ?? Accession Number(s): [id number] ? cc: KOLTON ESCALONA MD ? EXAMINATION: ?? XR TIBIA AND FIBULA, RIGHT ? CLINICAL INFORMATION: ?? PAIN ? COMPARISON: ?? March 10, 2018. ? TECHNIQUE: ?? AP and lateral views of the right tibia and fibula were obtained. ? FINDINGS: ?? No acute cortical disruption. There is an endplate depressed deformity ?? involving the medial tibial plateau with associated sclerosis and the ?? articular surface. ?? No lytic or blastic lesions. ? XR/XR tibia fibula RT 2V ?? IMPRESSION: ?? Medial compartment osteoarthrosis, moderate to severe with the an ?? old/chronic medial tibial plateau compression deformity. ? Electronically signed by: ??Maurisio Downey MD ??12/12/2024 09:30 AM ?? EDT RP ? Dictated By: ?Maurisio Suero MD ? Signed By: ?<Electronically signed by Maurisio España MD in OV> ? 12/12/24 0930 ? DD/ 0913 ? TD/TT: 12/12/2424 ? Video Game Maker: ? Procedure Note Donjaspreetter, Image - 12/12/2024 [place] [address] XRay Report Signed Patient: Yusra Rodriguez JMR#: [id number] 3 : 2Acct:[id number] Age/Sex: 84 / FADM Date: 12/12/24 Loc: HO.HHCX Attending Dr: Kolton Escalona MD Ordering Physician: KOLTON ESCALONA MD Date of Service: 12/12/24 Procedure(s): XR tibia fibula RT 2V Accession Number(s): [id number] cc: KOLTON ESCALONA MD EXAMINATION: XR TIBIA AND FIBULA, RIGHT CLINICAL INFORMATION: PAIN COMPARISON: March 10, 2018. TECHNIQUE: AP and lateral views of the right tibia and fibula were obtained. FINDINGS: No acute cortical disruption. There is an endplate depressed deformity involving the medial tibial plateau with associated sclerosis and the articular surface. No lytic or blastic lesions. 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 Electronically signed by: Maurisio Downey MD 12/12/2024 09:30 AM EDT RP Dictated By: Maurisio Suero MD Signed By: <Electronically signed by Maurisio España MDin OV> 12/12/24929 DD/ 2 TD/TT: 12/12/24923 Video Game Maker: us Kolton Escalona MD IMG XR PROCEDURES Final Result * US RENAL BI (11/02/2024 3:52 PM EDT) Anatomical Region Laterality Modality Abdomen Ultrasound 11/02/2024 3:52 PM EDT Narrative 11/02/2024 3:53 PM EDT ? [facility] ?[address] ?[place] [address] ? Ultrasound Report ? Signed ? Patient: Rodriguez,Yusra J ?MR#: [id number] ?? 3 ? : 1940 ?Acct:[id number] ? Age/Sex: 84 / F ?ADM Date: 11/02/24 ? Loc: HO.US ? Attending Dr: Suad ROJAS ? Ordering Physician: Suad Ortega ?? Date of Service: 11/02/24 ?? Procedure(s): US renal BI ?? Accession Number(s): [id number] ? cc: Louie Narayanan MD; Suad Ortega ? CLINICAL HISTORY: N20.0 - Calculus of [...] by Christian Iraheta MD in OV> ? 11/02/241551 ? DD/ 51 ? TD/TT: 03/14/25 1552 ? Video Game Maker: ? Procedure Note Donotuseinterpreter, Image - 11/02/2024 [place] [address] Ultrasound Report Signed Patient: Yusra Rodriguez JMR#: [id number] 3 : 2Acct:[id number] Age/Sex: 84 / FADM Date: 11/02/24 Loc: HO.US Attending Dr: Suad ROJAS Ordering Physician: Suad Ortega Date of Service: 11/02/24 Procedure(s): US renal BI Accession Number(s): [id number] cc: Louie Narayanan MD; Suad Ortega CLINICAL [...] by Christian Iraheta MD in OV> 11/02/24 1552 DD/ 1552 TD/TT: 11/02/24 1552 Video Game Maker: us [facility] External Provider IMG US PROCEDURES Final Result * Collagen Cross-Linked N-Telopeptide (NTx), U (11/02/2024 9:13 AM EDT) N Telopetide (NTx) 29 see note H [facility] Comment:Result Units: nM BCE /mM creatPremenopausal Females: 4 - 64 nM BCE/mM creatResults are primarily used for monitoring theresponse to therapy. A value within thepremenopausal range does not rule out osteoporosisnor the need for therapyUnits of Measure: nM BCE/mM creat CREATININE, RANDOM URINE 144 20 - 275 mg/dL [facility] Comment:THIS TEST WAS PERFOR MED AT:[facility] [place] [address]EPOICHGMYLES FRITZ MD,PHD 11/02/2024 9:13 AM EDT 11/02/2024 10:37 AM EDT us Generic External Data Provider LAB URINE ORDERAB LES Final Result Performing Organization Address [facility]/ZIP Co de Phone Number [facility] [address] [place] [address] [phone] * Albumin, Random Urine W/Creatinine (10/26/2024 8:36 AM EST) Creatinine, Urine 86.79 mg/dL [facility] Microalbumin Urine 9.0 mg/L [facility] Microalbum Creatinine Ratio Ur 10.3 <30 ug/mg cr [facility] Comment:Albumin/Creatinine R atio Reference Ranges: Normal: < 30 ug/mg creatinine Microalbuminuria: 30 - 300 ug/mg creatinineClinical Albuminuria: > 300 ug/mg creatinine Urine (Urine, Random) 10/26/2024 8:36 AM EST 10/26/2024 8:54 AM EST us Louie Whalen MD LAB URINE ORDERABLES Final Result Performing Organization Address [facility]/ZIP Co de Phone Number [facility] [address] [place] [phone] * (ABNORMAL) POCT HGB A1C (10/09/2024 10:59 AM EST) Hemoglobin A1C 9.3(A) 4.0 - 6.0 % QC Media Lot # [id number] Lot# Expiration Date [id number] Blood 10/09/2024 10:5 9 AM EST Louie Whalen MD POINT OF CARE TEST EN TER/EDIT ORDERABLES Final Result * POCT Glucose (10/09/2024 10:55 AM EST) Glucose Blood, POC 128 60 - 200 mg/dL QC Media Lot # [id number] Lot# Expiration Date [id number] Blood Capillary blood specimen / Unknown 10/09/2024 10:55 AM EST Louie Whalen MD POINT OF CARE TEST EN TER/EDIT ORDERABLES Final Result * MR Maryjane Tinoco w/ and w/o Contrast Left (09/22/2024 7:23 AM EST) Anatomical Region Laterality Modality Lower Extremities, Lower Leg Left Mag netic Resonance 09/22/2024 7:23 AM EST Narrative 09/22/2024 7:25 AM EST ? [facility] ?[address] ?[place] [address] ? Magnetic Resonance Report ? Signed ? Patient: Yusra Rodriguez ?MR#: [id number] ?? 3 ? : 1940 ?Acct:[id number] ? Age/Sex: 83 / F ?ADM Date: 09/21/24 ? Loc: HO.MRI ? Attending Dr: Louie Narayanan MD ? Ordering Physician: Louie Narayanan MD ?? Date of Service: 09/21/24 ?? Procedure(s): MR Tibia LT wo/w Contrast ?? Accession Number(s): [id number] ? cc: Louie Narayanan MD ? CLINICAL [...] ? 09/22/24723 ? DD/ 2 ? TD/TT: 09/22/24722 ? Video Game Maker: ? Procedure Note Ralph Eubnaks - 09/22/[address] [address] Magnetic Resonance Report Signed Patient: Yusra Rodriguez JMR#: [id number] 3 : 1940cct:[id number] Age/Sex: 83 / FADM Date: 09/21/24 Loc: HO.MRI Attending Dr: Louie Narayanan MD Ordering Physician: Louie Narayanan MD Date of Service: 09/21/24 Procedure(s): MR Tibia LT wo/w Contrast Accession Number(s): [id number] cc: Louie Narayanan MD CLINICAL HISTORY: LOCALIZED [...] in OV> 09/22/24723 DD/ 2 TD/TT: 09/22/24722 Video Game Maker: us Louie Whalen MD IMG MRI PROCEDURES Fi nal Result * BI Mammogram Screening Tomosynthesis Bilateral (09/13/2024 8:38 AM EST) Anatomical Region Laterality Modality Breast Bilateral Mammography 09/13/2024 8:38 AM EST Narrative 09/21/2024 4:45 PM EST ? [place] ? [address] ?[place] [address] ? Mammography Report ? Signed ? Patient: Rodriguez,Yusra J ?MR#: [id number] ?? 3 ? : 1940 ?Acct:[id number] ? Age/Sex: 83 / F ?ADM Date: 09/13/24 ? Loc: HO.MAMMO ? Attending Dr: Louie Narayanan MD ? Ordering Physician: Louie Narayanan MD ?Resu ?? lts: 1Negative ? Date of Service: 09/13/24 ?Follow Up: 1 Year From Orig ?? inal Mammogram ? Procedure(s): MM tomosynthesis screening BI ?? Accession Number(s): [id number] ? cc: Louie Narayanan MD ? EXAMINATION: [...] DD/ 0838 ? TD/TT: 09/13/24 0853 ? Video Game Maker: ? Procedure Note Donnubia, Image - 09/21/2024 [place]'s [address] [place] [address] Mammography Report Signed Patient: Yusra Rodriguez JMR#: [id number] 3 : 2Acct:[id number] Age/Sex: 83 / FADM Date: 09/13/24 Loc: [facility] Attending Dr: Louie Narayanan MD Ordering Physician: Louie Narayanan MDResu lts: 1Negative Date of Service: 09/13/24Follow Up: 1 Year From Orig inal Mammogram Procedure(s): MM tomosynthesis screening BI Accession Number(s): [id number] cc: Louie Narayanan MD EXAMINATION: MM SCREENING [...] by: Judi Navarro DO 09/21/2024 04:42 PM [facility] Dictated By: Judi Navarro DO Signed By: <Electronically signed by Judi Navarro DO in OV> 09/21/24 1642 DD/ 0838 TD/TT: 09/13/24 0853 Video Game Maker: Louie Whalen MD IM BI PROCEDURES Fin al Result * (ABNORMAL) Lipid Panel with Reflex to Direct LDL (02/11/2023 9:28 AM EDT) Cholesterol, Total 175 <200 mg/dL [facility] HDL Cholesterol 48(L) > OR = 50 mg/dL [facility] Triglycerides 263(H) <150 mg/dL [facility] Comment: If a non-fasting specimen was collected, consider repeat triglyceride testing on a fasting specimen if clinically indicated. Simón et al. J. of Clin. Lipidol. 2015;9:129-169. LDL Cholesterol 92 mg/dL (calc) [facility] Comment: Reference range: <100 Desirable range <100 mg/dL for primary prevention; ?? <70 mg/dL for patients with CHD or diabetic patients with > or = 2 CHD risk factors. LDL-C is now calculated using the Christa calculation, which is a validated novel method providing better accuracy than the Friedewald equation in the estimation of LDL-C. Ciaran NATHAN et al. HITESH. 2013;310(19): 0102-9018 (http://education.Digistrive.nChannel/faq/GUV420) Chol/HDLC Ratio 3.6 <5.0 (calc) [facility] Non-HDL Cholesterol 127 <130 mg/dL (calc) [facility] Comment: For patients with diabetes plus 1 major ASCVD risk factor, treating to a non-HDL-C goal of <100 mg/dL (LDL-C of <70 mg/dL) is considered a therapeutic option. 02/11/2023 9:28 AM EDT 02/11/2023 9:29 AM EDT Narrative [facility] - 02/11/2023 7:45 PM EDT FASTING:NO FASTING: NO Louie Whalen MD LAB BLOOD ORDERABLES Final Result [facility] [address], [place] [address] [facility] [address] [place] [address] from Last 3 Months or Most Recently Relevant to Health Maintenance Insurance [facility] DUAL COMPLETE DENTAL - [facility] Care Teams Physical Education Professor Relationship Specialty Start Date End Date Louie Gutierrez MD [address] [place] [phone] PCP - General Internal Medicine 06/13/13 [place] MARI 08/09/24
--- OUTSIDE RECORDS SUMMARY | 2024-12-12 10:04 | XMS_ITS | Encounter Summary ---
Author Organization [employer] Address [address] [facility] 7t [place] [address] Care Team Providers Care Assembler Utility Buildings Name Role Phone Louie Gutierrez MD Primary Care Provide r Reason for Referral * Consultation (Routine) - Pending Review Specialty Diagnoses / Procedures Referred By Contac t Referred To Contact Wound Care Diagnoses Abrasion of right lower extremity, initial encounter Injury of right lower extremity, initial encounter Kolton Escalona MD [address] [place] [address] Phone: tel: fax: Referral ID Status Reason Start Date Expiration Date Visits Requested Visits Authorized [id number] Pending Review Specialty Services Required 12/12/2024 12/12/2025 1 1 Reason for Visit * Reason Comments Leg Pain Encounter Details Date Type Department Care Team ([facility] st Contact Info) Description 12/12/2024 8:40 AM EDT Office Visit [facility] [address] [place] [address] [phone] Injury of right lower extremity, initial encounter (Primary Dx); Abrasion of right lower extremity, initial encounter; Right leg pain; Acute right ankle pain; Hypertension, unspecified type; Encounter for immunization Social History Tobacco Use Types Packs/Day Years [...] (158 lb) 12/12/2024 8:38 AM EDT Height - - Body Mass Index 30.86 10/26/2024 10:48 AM EST documented in this encounter Plan of Treatment Upcoming Encounters Date Type Department Care Team (Late st Contact Info) Description 12/21/2024 9:00 AM EDT Office Visit [facility] ADULT DENTAL [address] [place] [address] Ulises Fowleraris [address] [place] [address] 01/17/2025 10:00 AM EDT Office Visit [facility] MEDICINE [address] [place] [address] Louie Gutierrez MD [address] [place] [address] Scheduled Referrals Name Type Priority Associated Diagnoses Orde r Schedule Referral to Wound Clinic Outpatient Referral Routine Abrasion of right lower extremity, initial encounter Injury of right lower extremity, initial encounter Expected: 12/12/2024 (Approximate), Expires: 12/12/2025 documented as of this encounter Procedures Procedure Name Priority Date/Time Associated Diagnosis Comments XR TIBIA FIBULA 2 VIEWS RIGHT Routine 12/12/2024 9:13 AM EDT Injury of right lower extremity, initial encounter Right leg pain Acute right ankle pain documented in this encounter Results * XR Tibia Fibula 2 Views Right (12/12/2024 9:13 AM EDT) Anatomical Region Laterality Modality Lower Extremities, Lower Leg Right Rad iographic Imaging 12/12/2024 9:13 AM EDT Narrative 12/12/2024 9:33 AM EDT ?[facility] ?[address] [facility] [address] [address] ?[place] [address] ?XRay Report ? Signed ? Patient: Rodriguez,Yusra J ?MR#: [id number] ?? 3 ? : 1940 ?Acct:[id number] ? Age/Sex: 84 / F ?ADM Date: 04/23/25 ? Loc: HO.HHCX ? Attending Dr: Kolton Escalona MD ? Ordering Physician: KOLTON ESCALONA MD ?? Date of Service: 12/12/24 ?? Procedure(s): XR tibia fibula RT 2V ?? Accession Number(s): [id number] ? cc: KOLTON ESCALONA MD ? EXAMINATION: [...] in OV> ? 12/12/24 0930 ? DD/ ? TD/TT: 12/12/2424 ? Pole Climber: ? Procedure Note Ralph Eubanks - 12/12/[address] [address] XRay Report Signed Patient: Yusra Rodriguez JMR#: [id number] 3 : 2Acct:[id number] Age/Sex: 84 / FADM Date: 12/12/24 Loc: HO.HHCX Attending Dr: Kolton Escalona MD Ordering Physician: KOLTON ESCALONA MD Date of Service: 12/12/24 Procedure(s): XR tibia fibula RT 2V Accession Number(s): [id number] cc: KOLTON ESCALONA MD EXAMINATION: XR TIBIA [...] MDin OV> 12/12/24929 DD/ 2 TD/TT: 12/12/24923 Pole Climber: Kolton Escalona MD IMG XR PROCEDURES Final Result documented in this encounter Visit Diagnoses Diagnosis Injury of right lower extremity, initial encounter- Primary Abrasion of right lower extremity, initial encounter Right leg pain Pain in soft tissues of limb Acute right ankle pain Hypertension, unspecified type Encounter for immunization documented in this encounter Additional Health Concerns Assessment Noted Time PHQ-9 Depression Total Score: 1 05/31/20 1:55 PM EDT documented as of this encounter Care Teams Assembler Utility Buildings Relationship Specialty Start Date End Date Louie Gutierrez MD [address] [place] [phone] PCP - General Internal Medicine 06/13/13 [place] MARI 08/09/24 documented as of this encounter
--- OUTSIDE RECORDS SUMMARY | 2024-12-12 10:04 | XMS_ITS | Encounter Summary ---
Author Organization [employer] Address [address] [facility] 7 [place] [address] Care Team Providers Care Marine Fireman Name Role Phone Louie Guteirrez MD Primary Care Provide r Encounter Details Date Type Department Care Team (Latest Contact Info) Description 07/02/2022 Abstract [facility] CONVERSIONS Dental, Provider, DDS [...] Description 12/21/2024 9:00 AM EDT Office Visit [facility] ADULT DENTAL [address] [place] [address] Jennifer Fowler [address] [place] [address] 01/17/2025 10:00 AM EDT Office Visit [facility] MEDICINE [address] [place] [address] Louie Gutierrez MD [address] [place] [address] documented as of this encounter Visit Diagnoses Not on filedocumented in this encounter Care Teams Marine Fireman Relationship Specialty Start Date End Date Louie Gutierrez MD [address] [place] [phone] PCP - General Internal Medicine 06/13/13 [place] MARI 08/09/24 documented as of this encounter
--- OUTSIDE RECORDS SUMMARY | 2024-12-12 10:04 | XMS_ITS | Encounter Summary ---
Author Organization [employer] Address [address] [facility] 7 [place] [address] Care Team Providers Care Stencil Cutter Machine Name Role Phone Louie Gutierrez MD Primary Care Provide r Encounter Details Date Type Department Care Team (Latest Contact Info) Description 10/20/2020 Abstract [facility] CONVERSIONS Dental, Provider, DDS Social History [...] Description 12/21/2024 9:00 AM EDT Office Visit [facility] ADULT DENTAL [address] [place] [address] Jennifer Fowler [address] [place] [address] 01/17/2025 10:00 AM EDT Office Visit [facility] MEDICINE [address] [place] [address] oLuie Gutierrez MD [address] [place] [address] documented as of this encounter Visit Diagnoses Not on filedocumented in this encounter Care Teams Stencil Cutter Machine Relationship Specialty Start Date End Date Louie Gutierrez MD [address] [place] [phone] PCP - General Internal Medicine 06/13/13 [place] MARI 08/09/24 documented as of this encounter
--- OUTSIDE RECORDS SUMMARY | 2024-12-12 10:04 | XMS_ITS | Encounter Summary ---
Author Organization [employer] Address [address] [facility] 7t [place] [address] Care Team Providers Care Meat Process Worker Name Role Phone Louie Gutierrez MD Primary Care Provide r Encounter Details Date Type Department Care Team (Late st Contact Info) Description 12/07/2022 Orders Only [facility] MED [facility] PEDS [address] [place], [place] [phone] Roro Gregg LPN Social History Tobacco Use [...] Description 12/21/2024 9:00 AM EDT Office Visit [facility] ADULT DENTAL [address] [place], [place] [phone] Jennifer Fowler [address] [place] [address] 01/17/2025 10:00 AM EDT Office Visit [facility] MEDICINE [address] [place], [place] [phone] Louie Gutierrez MD [address] [place] [address] documented as of this encounter Visit Diagnoses Not on filedocumented in this encounter Care Teams Meat Process Worker Relationship Specialty Start Date End Date Louie Gutierrez MD [address] [place] [address] PCP - General Internal Medicine 06/13/13 [place] A 08/09/24 documented as of this encounter
--- OUTSIDE RECORDS SUMMARY | 2024-12-12 10:04 | XMS_ITS | Encounter Summary ---
Author Organization [employer] Address [address] [facility] 7t [place] [address] Care Team Providers Care Junior Data Analyst Name Role Phone Louie Gutierrez MD Primary Care Provide r Reason for Visit * Reason Comments Med Refill Encounter Details Date Type Department Care Team ([facility] st Contact Info) Description 09/01/2023 Refill [facility] MEDICINE [address] [place], [place] [phone] Louie Gutierrez MD [address] [place], [place] [phone] Social History Tobacco Use Types Packs/Day Years [...] 9:00 AM EDT Office Visit [facility] ADULT DENTAL [address] [place] [address] Malcolm Jennifer [address] [place] [address] 01/17/2025 10:00 AM EDT Office Visit [facility] MEDICINE [address] [place] [address] Louie Gutierrez MD [address] [place] [address] documented as of this encounter Visit Diagnoses Not on filedocumented in this encounter Additional Health Concerns Assessment Noted Time PHQ-9 Depression Total Score: 0 02/04/20 23 2:31 PM EDT documented as of this encounter Care Teams Junior Data Analyst Relationship Specialty Start Date End Date Louie Gutierrez MD [address] [place] [address] PCP - General Internal Medicine 06/13/13 [place] GOODWINA 08/09/24 documented as of this encounter
== END 2024-12-12 09:13 | disposition home or self-care (01) ==
LOC: HO.HHCX 09:12
PROVIDERS: Visit Provider Emergency Medicine
DX: S89.91XA Unspecified injury of right lower leg, initial encounter (principal); M79.604 Pain in right leg; M25.571 Pain in right ankle and joints of right foot
CPT/HCPCS: 73590

== ENCOUNTER → 2024-12-12 09:13 | Outpatient (BNV) | payer OTHER, SELFPAY | PROVIDERS: Visit Provider Radiology Diagnostic Radiology | DX: M17.11 Unilateral primary osteoarthritis, right knee (principal) | CPT/HCPCS: 73590 ==

== ENCOUNTER 2024-12-15 10:38 | Emergency (ER) | payer OTHER, SELFPAY ==
--- NOTE | ~2024-12-15 | XR_ITS ---
CLINICAL HISTORY: pain, fall 3 views right ankle Comparison: None Findings: No fractures, subluxations or dislocations. Ankle mortise intact. Normal plafond. No osteochondral lesions. Calcaneus and subtalar joint intact. No significant arthritic change. Posterior calcaneal enthesophyte. Normal bone mineralization and soft tissues. Normal pre-Achilles fat pad. No radiopaque foreign body. Impression: 1. No acute fractures or malalignment This document has been electronically signed by: Tien Campbell MD on 12/15/2024 12:47:55
[2024-12-15 10:42] VITALS: BP 152/70; PULSE 53; O2SAT 95
[2024-12-15 10:50] VITALS: BP 173/74; PULSE 107; RESP 16; TEMP 36.7; O2SAT 97; BMI 26.1
--- NOTE | 2024-12-15 11:33 | ED.LOWEXIN ---
HPI - Extremity Injury (Lower) General Chief Complaint: Extremity Injury, Lower Stated Complaint: FALL ON TUESDAY Time Seen by Provider: 12/15/24 10:56 Source: patient and EMS Mode of arrival: EMS Limitations: no limitations History of Present Illness ED Provider: Patricia Wu NP HPI Narrative: Patient is an 84-year-old female who presents emergency department for evaluation. She reports 6 days ago, she fell the stairs at home. Four days ago she saw her primary care doctor, had an x-ray done which was negative. She has been applying a topical antibiotic ointment over the laceration sustained to the anterior morris. She reports increasing pain, and that the laceration has not fully healed. She has had a small amount of clear drainage from the site. Denies any fevers or chills. Denies any numbness or tingling to the extremity. Related Data Home Medications ?Medication ?Instructions ?Recorded ?Confirmed aspirin 81 mg tablet,delayed 81 mg PO BEDTIME 12/26/20 08/05/24 release (Adult Low Dose Aspirin) insulin glargine 100 unit/mL (3 14 unit subcut BEDTIME 12/26/20 08/05/24 mL) subcutaneous pen (Lantus Solostar U-100 Insulin) metformin 1,000 mg tablet 1,000 mg PO BID 12/26/20 08/05/24 atorvastatin 80 mg tablet 80 mg PO BEDTIME 12/23/21 08/05/24 blood sugar diagnostic (OneTouch #10 ea 12/23/21 08/05/24 Ultra Test strips) furosemide 40 mg tablet 40 mg PO BID 12/23/21 08/05/24 lancets 33 gauge (TRUEplus Lancets) #100 ea 12/23/21 08/05/24 pen needle, diabetic 31 gauge x #1,200 ea 12/23/21 08/05/24 5/16 (UltiCare Pen Needle) amlodipine 5 mg tablet 5 mg PO BEDTIME 08/05/24 08/05/24 dulaglutide 4.5 mg/0.5 mL 4.5 mg subcut MO@0900 08/05/24 08/05/24 subcutaneous pen injector (Trulicity) glipizide 10 mg tablet 10 mg PO DAILY 08/05/24 08/05/24 hydralazine 50 mg tablet 50 mg PO BIDWM 08/05/24 08/05/24 valsartan 320 mg tablet 320 mg PO DAILY 08/05/24 08/05/24 Previous Rx's ?Medication ?Instructions ?Recorded calcium carbonate 600 mg PO BID #180 tabs 01/02/24 cholecalciferol (vitamin D3) 50 50 mcg PO QAM #30 caps 09/06/24 mcg (2,000 unit) capsule (Vitamin D3) cephalexin 500 mg capsule 500 mg PO QID #28 caps 12/15/24 Allergies Allergy/AdvReac Type Severity Reaction Status Date / Time Sulfa (Sulfonamide Allergy Intermediate RASH/ITCH Verified 12/15/24 10:53 Antibiotics) sulfamethoxazole Allergy Intermediate HIVES Verified 12/15/24 10:53 [From BACTRIM] trimethoprim [From BACTRIM] Allergy Intermediate HIVES Verified 12/15/24 10:53 oxycodone [From Percocet] Allergy Unknown Unknown Verified 12/15/24 10:53 penicillin V Allergy Unknown Unknown Verified 12/15/24 10:53 Review of Systems Review of Systems: Yes all other systems are reviewed and are negative FOR[facility]LY [facility] Past Medical History Attestation statement: The following information was validated with the patient. Source: old records reviewed Medical History Hydronephrosis of right kidney Hypertension Diabetes mellitus Gram-negative bacteremia Septic shock UTI (urinary tract infection) Calculus of kidney Osteoporosis Surgical History History of surgery Hx of hemorrhoidectomy H/O colonoscopy Hx of cystoscopy Hx of lithotripsy Hx of hysterectomy Family History Family History Father Heart problem Mother No problems noted. 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 No acute distress.?Normal affect. CVS: Heart sounds normal. Normal heart rate and rhythm.? Pulses normal.?? Respiratory: No respiratory distress.? Lung sounds clear to auscultation bilaterally?? Abdomen: Soft and non-tender. Normoactive bowel sounds. Skin: Skin warm and dry.? Normal skin color.? Extremities: No lower extremity edema.? No calf ttp. There are 2 scabbed lacerations over the anterior mid morris with no active drainage, mild surrounding erythema along the wound edges. There is notable ecchymosis diffusely throughout the lateral and medial ankle with tenderness upon palpation. 2+ DP/PT pulse. No obvious deformity. Neuro: Moves all extremities spontaneously. Sensation intact bilaterally. Ambulates with antalgic gait. Course Reevaluation(s) Reevaluation #1: Radiologist impression of ankle XR indicates no acute fracture, my interpretation there appears to be a small chip fracture of the cuboid. I did consult with Orthopedics, Lashae WHEATLEY who agrees and advises to treat as an acute fracture. She will be placed in a short orthopedic boot and given crutches for outpatient follow-up with orthopedics. Mild erythema surrounding or lacerations concerning for an early cellulitis, we will provide a short course of oral antibiotics. Reviewed worrisome signs and symptoms that would warrant re-evaluation emergency department. All questions answered. Medical Decision Making Medical Decision Making MDM Narrative: Patient is an 84-year-old female with past medical history of hypertension, diabetes, osteoporosis who presents emergency department for evaluation of right lower extremity pain/injury. As per HPI had a fall just under a week ago, had XR imaging of the tib-fib outpatient which was negative for any acute pathology on 12/12/2024 thought to have moderate to severe medial compartment osteoarthrosis in the old/chronic medial tibial plateau compression deformity with associated sclerosis. No localized tenderness or pain to this area on examination today. Given her degree of ecchymosis and pain on the ankle, will obtain XR to evaluate for possible fracture low suspicion for dislocation at this time. Negative Gay test. Achilles appears intact. The extremities neurovascularly intact distally. She appears to have a mild cellulitis surrounding the lacerations on the anterior morris, she has trialed topical antibiotic ointment, given his persistence, no history of diabetes will cover with a course of oral antibiotics. Differential Diagnosis Differential Diagnoses: The differential diagnosis associated with the presentation includes (See narrative above) Admission/Observation Consideration of admission/observation: Escalation of care including admission/observation considered Lab Data MDM Lab Attestation statement: I reviewed the patient's lab results. 12/15/24 12:31 12/15/24 13:50 Labs: Lab Results 12/15/24 12/15/24 Range/Units 12:31 13:50 WBC 9.7 (4.8-10.8) X10*3/uL RBC 4.52 (4.20-5.50) X10*6/uL Hgb 13.9 (12.0-16.0) g/dl Hct 40.6 (37.0-47.0) % MCV 89.8 (80.0-98.0) fL MCH 30.8 (27.0-33.0) pg MCHC 34.2 (31.0-35.0) g/dl RDW 12.9 (11.0-16.0) % Plt Count 215 (160-400) X10*3/uL MPV 10.6 (9.4-12.3) fL Immature Gran % (Auto) 0.4 (0.0-0.4) % Neut % (Auto) 67.8 (45-73) % Lymph % (Auto) 23.0 (20-40) % [place] % (Auto) 7.1 (2-11) % Eos % (Auto) 1.1 (0-4) % Baso % (Auto) 0.6 (0-2) % Lymph # (Auto) 2.2 (1.2-4.9) X10*3/uL [place] # (Auto) 0.7 (0.1-1.2) X10*3/uL Eos # (Auto) 0.1 (0.0-0.4) X10*3/uL Baso # (Auto) 0.1 (0.0-0.2) X10*3/uL Abs Immat Gran (auto) 0.04 H (0.00-0.03) X10*3/uL Absolute Neuts (auto) 6.6 (2.0-8.3) x10*3/uL Absolute Nucleated RBC 0.000 (0.0-0.012) X10*3/uL Nucleated RBC % (auto) 0.0 (0.0-0.2) /100WBC Smear Tech's Comments VERIFIED Sodium 138 (135-145) mmol/L Potassium 3.8 (3.3-5.1) mmol/L Chloride 104 (96-108) mmol/L Carbon Dioxide 26 (22-29) mmol/L Anion Gap 12 (12-20) BUN 24 H (9-16) mg/dL Creatinine 0.94 (0.5-1.4) mg/dL Estim Creat Clear Calc 43.2 Estimated GFR 57 Random Glucose 139 H (60-115) mg/dL Calcium 10.1 D (8.4-10.2) mg/dL Independent Interpretation I performed an independent interpretation of an: Plain X-Ray (See course narrative) Radiology Impression Discussion of test interpretation with radiology: I have reviewed the radiologist's reading. Radiologist Impression: 3 views right ankle Comparison: None Findings: No fractures, subluxations or dislocations. Ankle mortise intact. Normal plafond. No osteochondral lesions. Calcaneus and subtalar joint intact. No significant arthritic change. Posterior calcaneal enthesophyte. Normal bone mineralization and soft tissues. Normal pre-Achilles fat pad. No radiopaque foreign body. Impression: 1. No acute fractures or malalignment Independent Historian Clinical information obtained from an independent historian. History obtained from or confirmed by: EMS External Record Review External record reviewed: Outpatient record and Prior outpatient radiology Prescription Management I considered prescription management with: Pain Medication Chronic Conditions Patient?s care impacted by: Other (See narrative above) Discharge Plan Discharge Clinical Impression: Cellulitis of anterior lower leg Cuboid fracture Qualifiers: Encounter type: initial encounter Fracture type: closed Fracture alignment: nondisplaced Laterality: right Qualified Code(s): S92.214A - Nondisplaced fracture of cuboid bone of right foot, initial encounter for closed fracture Patient Disposition: Home, Self-Care Instructions: Crutch Instructions (ED), Cellulitis (ED), Foot Fracture in Adults (ED) Additional Instructions: X-ray close to have a very small chip fracture of the cuboid bone, 1 of the bones in your foot. For this you have been given a special orthopedic boot to wear as well as crutches. You can bear weight/walk on the foot only as tolerated. You will need to call the orthopedic office 1st thing Tuesday morning to arrange for an outpatient follow-up appointment with them. They will not call you directly. You can take Tylenol 500 mg, 2 tablets (1,000mg) every 4-6 hours as needed for pain, but not to exceed 3 doses daily (3,000mg). Regarding the cuts on the morris of your leg, there is redness concerning for an early infection. I have sent a prescription for oral antibiotics to your pharmacy. Please complete the entire course. Follow-up with your primary care doctor. Return with any new or worsening symptoms or concerns. ? Prescriptions: New cephalexin 500 mg capsule 500 mg PO QID Qty: 28 0RF No Action calcium carbonate 600 mg calcium (1,500 mg) tablet 600 mg PO BID Qty: 180 3RF cholecalciferol (vitamin D3) [Vitamin D3] 50 mcg (2,000 unit) capsule 50 mcg PO QAM Qty: 30 5RF amlodipine 5 mg tablet 5 mg PO BEDTIME valsartan 320 mg tablet 320 mg PO DAILY hydralazine 50 mg tablet 50 mg PO BIDWM glipizide 10 mg tablet 10 mg PO DAILY Trulicity 4.5 mg/0.5 mL pen injector 4.5 mg subcut MO@0900 aspirin [Adult Low Dose Aspirin] 81 mg tablet,delayed release (DR/EC) 81 mg PO BEDTIME metformin 1,000 mg tablet 1,000 mg PO BID Lantus Solostar U-100 Insulin 100 unit/mL (3 mL) insulin pen 14 unit subcut BEDTIME furosemide 40 mg tablet 40 mg PO BID atorvastatin 80 mg tablet 80 mg PO BEDTIME (DME) lancets [TRUEplus Lancets] 33 gauge misc See Rx Instructions topical TID Qty: 100 Rx Instructions: As directed (DME) OneTouch Ultra Test Strip See Rx Instructions .ROUTE TID Qty: 10 Rx Instructions: As directed (DME) pen needle, diabetic [UltiCare Pen Needle] 31 gauge x 5/16 needle See Rx Instructions subcut DAILY Qty: 1200 Rx Instructions: As directed naproxen 500 mg tablet 500 mg PO ONCE Qty: 1 0RF lidocaine HCl 2 % jelly in applicator 10 ml intra-urethral ONCE Qty: 10 0RF Referrals: [facility] [Provider Group] (cuboid fracture) Print Language: Maltese
[2024-12-15 12:52] LABS: Basophils Absolute Auto 0.1 X10*3/uL (0.0-0.2); Basophils Percent Auto 0.6 % (0-2); Eosinophils Absolute Auto 0.1 X10*3/uL (0.0-0.4); Eosinophils Percent Auto 1.1 % (0-4); Hematocrit 40.6 % (37.0-47.0); Hemoglobin 13.9 g/dl (12.0-16.0); Imm Gran Abs Auto 0.04 X10*3/uL (0.00-0.03); Imm Gran Pct Auto 0.4 % (0.0-0.4); Lymphocytes Absolute Auto 2.2 X10*3/uL (1.2-4.9); MANUAL DIFF FLAG SCAN; Mean Corpuscular HGB Conc 34.2 g/dl (31.0-35.0); Mean Corpuscular Hemoglobin 30.8 pg (27.0-33.0); Mean Corpuscular Volume 89.8 fL (80.0-98.0); Monocytes Absolute Auto 0.7 X10*3/uL (0.1-1.2); Monocytes Percent Auto 7.1 % (2-11); Neutrophils Absolute Auto 6.6 x10*3/uL (2.0-8.3); Neutrophils Percent Auto 67.8 % (45-73); PLT CLUMP 1; Red Blood Count 4.52 X10*6/uL (4.20-5.50); Red Cell Distribution Width 12.9 % (11.0-16.0); SCAN SMEAR FLAG 1
[2024-12-15 13:19] LABS: Mean Platelet Volume 10.6 fL (9.4-12.3); Platelet Count 215 X10*3/uL (160-400); SLIDE REVIEW VERIFIED; White Blood Count 9.7 X10*3/uL (4.8-10.8)
[2024-12-15 14:06] LABS: Anion Gap 12 (12-20); Blood Urea Nitrogen 24 mg/dL (9-16); Calcium 10.1 mg/dL (8.4-10.2); Carbon Dioxide 26 mmol/L (22-29); Chloride 104 mmol/L (96-108); Creatinine Clr Calc Pharmacy 43.2; Estimated Glomerular Filt Rate 57; Glucose Random 139 mg/dL (60-115); Potassium 3.8 mmol/L (3.3-5.1); Sodium 138 mmol/L (135-145)
[2024-12-15 14:08] VITALS: BP 170/87; PULSE 75; RESP 16; TEMP 36.6; O2SAT 95
[2024-12-15 14:14] VITALS: BP 163/74; PULSE 77; RESP 18; TEMP 36.8; O2SAT 97
[2024-12-15 16:14] VITALS: BP 163/74; PULSE 77; RESP 18; TEMP 36.8; O2SAT 97
== END 2024-12-15 16:15 | disposition home or self-care (01) ==
PROVIDERS: Nurse Practitioner Family; Emergency Provider Emergency Medicine
DX: S92.214A Nondisplaced fracture of cuboid bone of right foot, initial encounter for closed fracture (principal); M25.571 Pain in right ankle and joints of right foot; L03.115 Cellulitis of right lower limb; X58.XXXA Exposure to other specified factors, initial encounter; Y93.9 Activity, unspecified; Y92.9 Unspecified place or not applicable; Y99.8 Other external cause status; Z79.899 Other long term (current) drug therapy
CPT/HCPCS: 36415; 73610; 80048; 85025; 99283; 99284

== ENCOUNTER → 2024-12-15 12:05 | Outpatient (BNV) | payer OTHER, SELFPAY | PROVIDERS: Emergency Provider Emergency Medicine; Visit Provider Radiology Diagnostic Radiology | DX: M25.571 Pain in right ankle and joints of right foot (principal) | CPT/HCPCS: 73610 ==

== ENCOUNTER 2025-01-01 09:45 | Outpatient (AMB) | payer OTHER, SELFPAY ==
--- NOTE | 2025-01-01 09:51 | MHC.OFFVIS ---
Vital Signs 01/01/25 09:56 Height 5 ft 4 in Weight 152 lb BMI 26.1 Intake Visit Reasons: ER-Cellulitis anterior RT ankle injuryDOI 12/03/24 Intake Note: Yusra is a 84 year old female who presents today with her daughter for a evaluation of her right ankle injury, DOI 12/03/24. Patient reports she fell at home. She states was given a walking boot and crutches with weight bear as tolerated. Patient was also prescribed antibiotics since she had redness around some cuts in her legs. Patient reports she is having mild pain on the medial aspect of the ankle and she is having pain on her morris where she has a open wound. Impression: 1. No acute fractures or malalignment Allergies Sulfa (Sulfonamide Antibiotics) Allergy (Intermediate, Verified 01/01/25 09:55) RASH/ITCH sulfamethoxazole [From BACTRIM] Allergy (Intermediate, Verified 01/01/25 09:55) HIVES trimethoprim [From BACTRIM] Allergy (Intermediate, Verified 01/01/25 09:55) HIVES oxycodone [From Percocet] Allergy (Unknown, Verified 01/01/25 09:55) Unknown penicillin V Allergy (Unknown, Verified 01/01/25 09:55) Unknown HPI HPI ER-Cellulitis anterior RT ankle injuryDOI 12/03/24: Details: Ms. Rodriguez is an 84-year-old female who presents to the office today for evaluation of a right ankle injury she sustained on 12/03/2024 when she fell down the stairs. She was seen by her primary care doctor and had an x-ray performed which was negative. She sustained to abrasions over the anterior aspect of the morris. She has been placing topical antibiotic ointment over the areas and covering them with a dry dressing. She was seen in the emergency department on 12/15/2024 for cellulitis. The emergency department sent cephalexin 500 mg p.o. q.i.d. to the pharmacy. They repeat x-rays while in the emergency department and the patient was found to have a very small chip fracture of the cuboid bone. Patient is not experiencing any pain in the foot at this time. Patient's main concern is the abrasions and cellulitis as the patient is a diabetic. FORMERLY [facility] Medical History Hydronephrosis of right kidney Hypertension Diabetes mellitus Gram-negative bacteremia Septic shock UTI (urinary tract infection) Calculus of kidney Osteoporosis Surgical History History of surgery Hx of hemorrhoidectomy H/O colonoscopy Hx of cystoscopy Hx of lithotripsy Hx of hysterectomy Family History Father Heart problem Mother No problems noted. 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 Mild edema over the dorsal aspect of the cuboid. Patient is able to demonstrate dorsiflexion, plantar flexion, pronation and supination. Negative anterior drawer. Sensation intact. Pedal Pulse intact. There are 2 superficial lacerations along the anterior aspect of the tibia. There is surrounding erythema. No active drainage on today's exam. Assessment & Plan Assessment & Plan (1) Right foot sprain: Code(s): S93.601A - Unspecified sprain of right foot, initial encounter Category: Medical (2) Cellulitis: Code(s): L03.90 - Cellulitis, unspecified Category: Medical (3) Diabetes mellitus: Code(s): E11.9 - Type 2 diabetes mellitus without complications Category: Medical Plan Ms. Rodriguez is an 84-year-old female who presents to the office today for evaluation of a right ankle injury she sustained on 12/03/2024 when she fell down the stairs. She was seen by her primary care doctor and had an x-ray performed which was negative. She sustained to abrasions over the anterior aspect of the morris. She has been placing topical antibiotic ointment over the areas and covering them with a dry dressing. She was seen in the emergency department on 12/15/2024 for cellulitis. The emergency department sent cephalexin 500 mg p.o. q.i.d. to the pharmacy. They repeat x-rays while in the emergency department and the patient was found to have a very small chip fracture of the cuboid bone. Patient is not experiencing any pain in the foot at this time. Patient's main concern is the abrasions and cellulitis as the patient is a diabetic. While in the office today, I recommended that the patient follow up with her primary care provider for treatment of cellulitis as this is not an orthopedic condition that we typically treat. In regards to her foot injury I recommended that she discontinue the boot at this time and transition to a supportive locking sneaker. She may weightbear as tolerated. She can follow up with Orthopedics p.r.n., sooner if needed. Coding Level of Care Code New Pt Level 4 (27030) Diagnoses Right foot sprain S93.601A Cellulitis L03.90 Diabetes mellitus E11.9
[2025-01-01 09:56] VITALS: BMI 26.1
--- OUTSIDE RECORDS SUMMARY | 2025-01-01 10:28 | XMS_ITS | Clinical Summary ---
Author Organization [employer] Address [address] [place] [address] 7[address] [place] [address] Care Team Providers Care Senior Integration Developer Name Role Phone Louie Gutierrez MD [...] by mouth in the morning. 3 Active valsartan (Diovan) 160 MG tablet TAKE 1 TABLET BY MOUTH EVERY MORNING 30 tablet 6 3 Active loratadine (Claritin) 10 MG tablet TAKE 1 TABLET BY MOUTH EVERY DAY 30 tablet 6 4 Active Trulicity 4.5 MG/0.5ML solution pen-injectorIn dications:Type 2 diabetes mellitus without complication, with long-term current use of insulin ([facility]) INJECT ONE PEN (= 4.5MG) SUBCUTANEOUSLY ONCE A WEEK DIRECTED 2 mL 11 4 Active Aspirin Adult Low Strength 81 MG EC tablet TAKE 1 TABLET BY MOUTH EVERY EVENING 90 tablet 3 4 Active TRUEplus Lancets 33G miscIndication s:Type 2 diabetes mellitus without complication, with long-term current use of insulin ([facility]) TEST BLOOD SUGAR THREE TIMES DAILY DIRECTED 100 each 11 4 Active estradiol (Estrace) 0.1 MG/GM vaginal cream Insert 1 g into the vagina Once per day. 1g vaginally x 14d, then twice weekly thereafter 42.5 g 4 025 Active metFORMIN (Glucophage) 1000 MG tablet TAKE 1 TABLET BY MOUTH TWICE DAILY IN THE MORNING AND IN THE EVENING WITH FOOD 180 tablet 4 Active Easy Touch Pen Magnolia 31G X 8 MM misc USE DIRECTED ONCE DAILY 100 each 1 4 Active insulin glargine (Lantus SoloStar) 100 UNIT/ML penIndications :Type 2 diabetes mellitus without complication, with long-term current use of insulin ([facility]) Inject 16 Units under the skin at bedtime. 15 mL 3 5 Active miconazole (Micatin) 2 % creamIndicatio ns:Tinea Apply topically 2 times daily. 56 g 1 5 Active econazole nitrate 1 % creamIndicatio ns:Intertrigo Apply topically 2 times daily. 85 g 5 Active hydrocortisone 2.5 % creamIndicatio ns:Intertrigo Apply topically 2 times daily. 28 g 5 Active glipiZIDE (Glucotrol) 10 MG tablet TAKE 1 TABLET BY MOUTH EVERY MORNING BEFORE A MEAL 90 tablet 1 5 Active atorvastatin (Lipitor) 80 MG tablet TAKE 1 TABLET BY MOUTH AT BEDTIME 30 tablet 6 5 Active OneTouch Ultra Test test stripIndicatio ns:Type 2 diabetes mellitus without complication, with long-term current use of insulin ([facility]) TEST BLOOD SUGAR THREE TIMES DAILY 100 strip 3 5 Active bacitracin-liliam ymyxin b (Polysporin) ointment Apply topically 2 times daily. Apply to affected area daily 30 g 5 Active acetaminophen (Tylenol) 500 MG tablet Take 2 tablets (1,000 mg) by mouth every 6 (six) hours if needed for moderate pain or fever for up to 25 doses. 50 tablet Active Active Problems Problem Noted Date Diagnosed Date Dental plaque 12/21/2024 Periodontal disease 12/21/2024 Missing teeth, acquired 12/21/2024 Dental calculus 12/21/2024 Venous (peripheral) insufficiency 10/09/2024 Assessment & Plan [...] PM EDT): S/o excision by Mian Lara DIGITAL CONTENT SPECIALIST Pathology showed: Variable epidermal acanthosis with [...] Plan (09/01/2023 9:28 AM EST): Diagnosed by [facility]. Last seen by [facility] 08/30/2023 Diabetes mellitus, type II 05/11/2012 [...] last done on: 01/21/[address] Cotton (book illustrator) measured her IOP and was stable so [...] Pt tells me she was vacationing in [place] and while there she was not following a diabetic diet. When reviewing her glucometer it was evident the time she was in [place] because her blood sugars were consistently high and now that she is back blood sugars have normalized Eye exam was last done on: 01/21/[address] Cotton (book illustrator) measured her IOP and was stable so [...] compliance with diet and meds while in [place] 3 months f/u Pt advised to: adhere [...] last done on: 01/21/[address] Cotton (book illustrator) measured her IOP and was stable so [...] last done on: 01/21/[address] Cotton (book illustrator) measured her IOP and was stable so [...] last done on: 01/21/[address] Cotton (book illustrator) measured her IOP and was stable so [...] last done on: 01/21/[address] Cotton (book illustrator) measured her IOP and was stable so [...] Plan: Continue regimen pt following with our [facility] Most recent electrolytes, Bun and Creatinine [...] note pt had a cardiac [place] [facility] [place] There was NO angiographic evidence of CAD. seen in the past at [facility]. PREVIOUSLY ADDRESSED: THE INFORMATION BELOW HAS BEEN COPIED, PASTED AND UPDATED FROM PREVIOUS NOTES. Chest discomfort (R07.89). Resolved, pt ended up having an outpt stress test 05/23/2019 that was negative for ischemia. Of note pt had a cardiac cath 2009 at [facility] that was unremarkable. 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 Pt with a Hx. of ? Paget's disease of the bone, evaluated in the past by an hair mixer (Dr Banuelos) who treated her initially with Actonel but she could not tolerate subsequently she was given an infusion of Reclast and remains on Vitamin D pt was lost for f/u with Dr Banuelos. Last visit we scheduled a f/u appointment. Pt was seen by a different Registered Nurse Nursery (Dr Ferrer)who review previous notes from Dr Banuelos and new bone scan, and lab data. She was seen on 11/08/2012nd based on his impression he DID NOT think pt had Paget's disease. She was last seen by [facility] on 02/16/2013 (Dr Ferrer) He diagnosed [...] note pt had a cardiac cath at [facility] [place] 05/20/2009 There was NO angiographic evidence of CAD. seen in the past at [facility]. PREVIOUSLY ADDRESSED: THE INFORMATION BELOW HAS BEEN COPIED, PASTED AND UPDATED FROM PREVIOUS NOTES. Chest discomfort (R07.89). Resolved, pt ended up having an outpt stress test 05/23/2019 that was negative for ischemia. Of note pt had a cardiac cath 2008 at [facility] [place] was unremarkable. 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 Pt with a Hx. of ? Paget's disease of the bone, evaluated in the past by an hair mixer (Dr Banuelos) who treated her initially with Actonel but she could not tolerate subsequently she was given an infusion of Reclast and remains on Vitamin D pt was lost for f/u with Dr Banuelos. Last visit we scheduled a f/u appointment. Pt was seen by a different Registered Nurse Nursery (Dr Ferrer)who review previous notes from Dr Banuelos and new bone scan, and lab data. She was seen on 11/08/2012nd based on his impression he DID NOT think pt had Paget's disease. She was last seen by [facility] on 02/16/2013 (Dr Ferrer) He diagnosed [...] note pt had a cardiac cath at [facility] [place] 05/20/2009 There was NO angiographic evidence of CAD. seen in the past at [facility]. PREVIOUSLY ADDRESSED: THE INFORMATION BELOW HAS BEEN COPIED, PASTED AND UPDATED FROM PREVIOUS NOTES. Chest discomfort (R07.89). Resolved, pt ended up having an outpt stress test 05/23/2019 that was negative for ischemia. Of note pt had a cardiac cath 2008 at [facility] [place] was unremarkable. 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 Pt with a Hx. of ? Paget's disease of the bone, evaluated in the past by an hair mixer (Dr Banuelos) who treated her initially with Actonel but she could not tolerate subsequently she was given an infusion of Reclast and remains on Vitamin D pt was lost for f/u with Dr Banuelos. Last visit we scheduled a f/u appointment. Pt was seen by a different Registered Nurse Nursery (Dr Ferrer)who review previous notes from Dr Banuelos and new bone scan, and lab data. She was seen on 11/08/2012 based on his impression he DID NOT think pt had Paget's disease. She was last seen by [facility] on 02/16/2013 (Dr Ferrer) He diagnosed [...] note pt had a cardiac cath at [facility] [place] 05/20/2009 There was NO angiographic evidence of CAD. seen in the past at [facility]. PREVIOUSLY ADDRESSED: THE INFORMATION BELOW HAS BEEN COPIED, PASTED AND UPDATED FROM PREVIOUS NOTES. Chest discomfort (R07.89). Resolved, pt ended up having an outpt stress test 05/23/2019 that was negative for ischemia. Of note pt had a cardiac cath 2008 at [facility] [place] was unremarkable. 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 Pt with a Hx. of ? Paget's disease of the bone, evaluated in the past by an hair mixer (Dr Banuelos) who treated her initially with Actonel but she could not tolerate subsequently she was given an infusion of Reclast and remains on Vitamin D pt was lost for f/u with Dr Banuelos. Last visit we scheduled a f/u appointment. Pt was seen by a different Registered Nurse Nursery (Dr Ferrer)who review previous notes from Dr Banuelos and new bone scan, and lab data. She was seen on 11/08/2012 based on his impression he DID NOT think pt had Paget's disease. She was last seen by [facility] on 02/16/2013 (Dr Ferrer) He diagnosed [...] note pt had a cardiac cath at [facility] [place] 05/20/2009 There was NO angiographic evidence of CAD. seen in the past at [facility]. PREVIOUSLY ADDRESSED: THE INFORMATION BELOW HAS [...] pt had a cardiac cath 2008 at [facility] [place] was unremarkable. 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 Examination suggestive of this Plan: Nizoral shampoo, Neutrogenal [place] tar shampoo extra strength Referral to Dr [...] moderate stage (365.10), Chronic. Recently diagnosed by [facility]. last seen 03/10/2012. They recommended to continue to follow with dr. 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 Pt with a Hx. of ? Paget's disease of the bone, evaluated in the past by an hair mixer (Dr Banuelos) who treated her initially with Actonel but she could not tolerate subsequently she was given an infusion of Reclast and remains on Vitamin D pt was lost for f/u with Dr Banuelos. Last visit we scheduled a f/u appointment. Pt was seen by a different Registered Nurse Nursery (Dr Ferrer)who review previous notes from Dr Banuelos and new bone scan, and lab data. She was seen on 11/08/2012nd based on his impression he DID NOT think pt had Paget's disease. She was last seen by [facility] on 02/16/2013 (Dr Ferrer) He diagnosed [...] LDL-C. Ciaran SS et al. HITESH. 2013;310(19): 9351-2117 (http://education.Aloqa/faq/RZJ867) Chol/HDLC Ratio <5.0 (calc) 3.6 3.0 5.1??High?? [...] Encounters Date Type Department Care Team Description 01/01/2025 Refill [facility] [address] [place] [phone] Dena Christianson MD 12/21/2024 9:00 AM EDT Office Visit [facility] [address] [place] [address] Jennifer Fowler Dental plaque (Primary Dx); Periodontal disease; Missing teeth, acquired; Dental calculus 12/12/2024 8:40 AM EDT Office Visit [facility] [address] [facility] [place] [address] Kolton Lloyd MD Injury of right lower extremity, initial encounter (Primary Dx); Abrasion of right lower extremity, initial encounter; Right leg pain; Acute right ankle pain; Hypertension, unspecified type; Encounter for immunization 12/12/2024 Travel 11/25/2024 Refill [facility] [address] [place] [address] Louie Gutierrez MD Type 2 diabetes mellitus without complication, with long-term current use of insulin (CMS/HCC) 11/22/2024 Refill [facility] [address] [place] [address] Louie Gutierrez MD 11/04/2024 Refill [facility] [address] [place] [address] Roro Reynolds DO 11/02/2024 Orders Only [facility] External [facility], [facility] 10/26/2024 11:00 AM EST Office Visit [facility] [place] [address] Amado Lynch MD Inter[facility] 10/26/2024 Travel 10/26/2024 Telephone [facility] [address] [place] [phone] Louie Gutierrez MD 10/25/2024 Telephone [facility] [address] [place] [phone] Louie Gutierrez MD telephone call 10/09/2024 11:00 AM EST Office Visit [facility] [place] [address] Louie Gutierrez MD Venous (peripheral) insufficiency (Primary Dx); Type 2 diabetes mellitus without complication, with long-term current use of insulin (CMS/HCC); Primary hypertension; Lower leg mass, left; Kidney stone; Tinea 10/09/2024 Travel from Last 3 Months Immunizations Name Administration [...] Sign Reading Time Taken Comments Blood Pressure 136/82 12/21/2024 8:26 AM EDT Pulse 78 12/12/2024 8:38 AM [...] Care Team (Late st Contact Info) Description 01/17/2025 10:00 AM EDT Office Visit [facility] [address] [place] [address] Louie Gutierrez MD [address] [place] [address] 07/09/2025 10:00 AM EST Office Visit [facility] [address] [place] [address] Jennifer Fowler [address] [place] [address] Health Maintenance Due Date Last Done Comments Diabetes: Foot Exam 1950 Eye Exam 1950 RSV Patients and Patients Aged 60 years or older (1 - 1-dose 75+ series) 2016 Zoster Vaccines (3 of 3) 08/12/2022 06/17/2022, 08/23 Lipid Panel 02/12/2024 02/11/2023, 06/0 04/2022, 08/26/2021, Additional history exists COVID-19 Vaccine (2023- season) 2024 11/14/2020, 10/17/2020 Dental Oral Exam 11/05/2024 05/07/2024, , 07/02/2022, Additional history exists Diabetes: Hemoglobin A1C 01/06/2025 025, 05/31/2024, 12/01/2023, Additional history exists Dental X-Ray: Bitewings 05/08/2025 05/07/20 24, 12/01/2023, 09/15/2023, Additional history exists Depression Screening 05/31/2025 05/31/2024, 05/31/20 24 Dental Prophylaxis 06/24/2025 12/21/2024, 0 05/07/2024, 09/15/2023, Additional history exists Mammogram 09/13/2025 09/13/2024, 08/22, 09/02/2022, Additional history exists Alcohol/Substance Use Screening 10/09/2025 10/09/2024 SDOH Screening 10/09/2025 10/09/2024 Diabetes: Urine Protein Screening 10/26/2025 10/26/2024, 08/26/2021, 11/10/2020, Additional history exists Tobacco Screening 12/21/2025 12/21/2024 Dental X-Ray: Full Mouth 05/08/2027 05/07/2024, 09/2020 DTaP/Tdap/Td Vaccines (3 - Td or Tdap) [...] Procedure Name Priority Date/Time Associated Diagnosis Comments ORAL HYGIENE INSTRUCTIONS Routine 12/21/2024 9:00 AM EDT Dental plaque Periodontal disease Missing teeth, acquired Dental calculus PROPHYLAXIS - ADULT Routine 12/21/2024 9 :00 AM EDT Dental plaque Periodontal disease Missing teeth, acquired Dental calculus XR TIBIA FIBULA 2 VIEWS RIGHT Routine [...] complication, with long-term current use of insulin ([facility]) POCT GLYCATED HEMOGLOBIN, TOTAL Routine 10/09/2024 10:59 AM EST Type 2 diabetes mellitus without complication, with long-term current use of insulin (CMS/HCC) POCT GLUCOSE Routine 10/09/2024 10:55 AM EST Type 2 diabetes mellitus without complication, with long-term current use of insulin ([facility]) BI MAMMOGRAM SCREENING TOMOSYNTHESIS BILATERAL Routine 09/13/2024 8:38 AM EST INTRAORAL - COMPLETE SERIES OF RADIOGRAPHIC IMAGES Routine 05/07/2024 8:00 AM EDT PERIODIC ORAL EVALUATION - ESTABLISHED PATIENT Routine 05/07/2024 8:00 AM EDT LIPID PANEL WITH REFLEX TO DIRECT LDL Routine 02/11/2023 9:28 AM EDT Type 2 diabetes mellitus without complication, with long-term current use of insulin ([facility]) from Last 3 Months or Most Recently Relevant to Health Maintenance Results * XR Tibia Fibula 2 Views Right (12/12/2024 9:13 AM EDT) Anatomical Region Laterality Modality Lower Extremities, Lower Leg Right Rad iographic Imaging 12/12/2024 9:13 AM EDT Narrative 12/12/2024 9:33 AM EDT ?[facility] ?[address] ?[place] [address] ?XRay Report ? Signed ? Patient: Yusra Rodriguez ?MR#: [id number] ?? 3 ? : 1940 ?Acct:[id number] ? Age/Sex: 84 / F ?ADM Date: 12/12/24 ? Loc: HO.HHCX ? Attending Dr: Kolton Lloyd MD ? Ordering Physician: KOLTON LLOYD MD ?? Date of Service: 12/12/24 ?? Procedure(s): XR tibia fibula RT 2V ?? Accession Number(s): [id number] ? cc: KOLTON LLOYD MD ? EXAMINATION: ?? XR TIBIA AND [...] 12/12/24 0930 ? DD/ 0913 ? TD/TT: 12/12/24923 ? Appliquer Zigzag: ? Procedure Note Raimundo, Ralph - 12/12/2024 [facility] [address] [place] [address] XRay Report Signed Patient: Yusra Rodriguez JMR#: [id number] 3 : 2Acct:[id number] Age/Sex: 84 / FADM Date: 12/12/24 Loc: HO.HHCX Attending Dr: Kolton Lloyd MD Ordering Physician: KOLTON LLOYD MD Date of Service: 12/12/24 Procedure(s): XR tibia fibula RT 2V Accession Number(s): [id number] cc: KOLTON LLOYD MD EXAMINATION: XR TIBIA AND FIBULA, RIGHT [...] Maurisio Downey MD 12/12/2024 09:30 AM EDT Dictated By: Maurisio Suero MD Signed By: <Electronically signed by Maurisio España MDin OV> 12/12/24929 DD/ 2 TD/TT: 12/12/24923 Appliquer Zigzag: us Kolton Lloyd MD IMG XR PROCEDURES Final Result * US RENAL BI (11/02/2024 3:52 PM EDT) Anatomical Region Laterality Modality Abdomen Ultrasound 11/02/2024 3:52 PM EDT Narrative 11/02/2024 3:53 PM EDT ? [facility] ?[address] ?[place] [address] ? Ultrasound Report ? Signed ? Patient: Rodriguez,Yusra J ?MR#: [id number] ?? 3 ? : 1940 ?Acct:[id number] ? Age/Sex: 84 / F ?ADM Date: 11/02/24 ? Loc: HO.US ? Attending Dr: Suad ROJAS ? Ordering Physician: Suad Ortega ?? Date of Service: 11/02/24 ?? Procedure(s): US renal BI ?? Accession Number(s): [id number] ? cc: Louie Narayanan MD; Suad Ortega [...] Christian Iraheta MD in OV> ? 11/02/24 1552 ? DD/ ? TD/TT: 11/02/241551 ? Appliquer Zigzag: ? Procedure Note Raimundo, Image - 11/02/[address] [address] Ultrasound Report Signed Patient: Yusra Rodriguez JMR#: [id number] 3 : 2Acct:[id number] Age/Sex: 84 / FADM Date: 11/02/24 Loc: HO.US Attending Dr: Suad Ortega [facility] Ordering Physician: Suad Ortega [facility] Date of Service: 11/02/24 Procedure(s): US renal BI Accession Number(s): [id number] cc: Louie Narayanan MD; Suad Ortega [facility] CLINICAL HISTORY: N20.0 - Calculus of kidney [...] in OV> 11/02/24 1552 DD/ 1552 TD/TT: 11/02/241551 Appliquer Zigzag: us [facility] External Provider IMG US PROCEDURES Final Result * Collagen Cross-Linked N-Telopeptide (NTx), U (11/02/2024 9:13 AM EDT) N Telopetide (NTx) 29 see note H [facility] Comment:Result Units: nM BCE /mM creatPremenopausal Females: 4 - 64 nM BCE/mM creatResults are primarily used for monitoring theresponse to therapy. A value within thepremenopausal range does not rule out osteoporosisnor the need for therapyUnits of Measure: nM BCE/mM creat CREATININE, RANDOM URINE 144 20 - 275 mg/dL [facility] Comment:THIS TEST WAS PERFOR MED AT:[id number] [place] [address]RQPIDUPMYLES FRITZ MD,PHD 11/02/2024 9:13 AM EDT 11/02/2024 10:37 AM EDT Generic External Data Provider LAB URINE ORDERAB LES Final Result Performing Organization Address [facility] Co de Phone Number [facility] [address] [place] [phone] * Albumin, Random Urine W/Creatinine (10/26/2024 8:36 AM EST) Creatinine, Urine 86.79 mg/dL [facility] Microalbumin Urine 9.0 mg/L [facility] Microalbum Creatinine Ratio Ur 10.3 <30 ug/mg cr [facility] Comment:Albumin/Creatinine R atio Reference Ranges: Normal: < 30 ug/mg creatinine Microalbuminuria: 30 - 300 ug/mg creatinineClinical Albuminuria: > 300 ug/mg creatinine Urine (Urine, Random) 10/26/2024 8:36 AM EST 10/26/2024 8:54 AM EST Louie Whalen MD LAB URINE ORDERABLES Final Result Performing Organization Address [facility] Co de Phone Number [facility] [address] [place] [phone] * (ABNORMAL) POCT HGB A1C (10/09/2024 [...] specimen / Unknown 10/09/2024 10:55 AM EST us Louie Whalen MD POINT OF CARE TEST EN TER/EDIT ORDERABLES Final Result * BI Mammogram Screening Tomosynthesis Bilateral (09/13/2024 8:38 AM EST) Anatomical Region Laterality Modality Breast Bilateral Mammography 09/13/2024 8:38 AM EST Narrative 09/21/2024 4:45 PM EST ? [facility] ? [address] ?[place] [address] ? Mammography Report ? Signed ? Patient: Rodriguez,Yusra J ?MR#: [id number] ?? 3 ? : 1940 ?Acct:[id number] ? Age/Sex: 83 / F ?ADM Date: 09/13/24 ? Loc: HO.MAMMO ? Attending Dr: Louie Narayanan MD ? Ordering Physician: Louie Narayanan MD ?Resu ?? lts: 1Negative ? Date of Service: 09/13/24 ?Follow Up: 1 Year From Orig ?? inal Mammogram ? Procedure(s): MM tomosynthesis screening BI ?? Accession Number(s): [id number] ? cc: Louie Narayanan MD ? EXAMINATION: [...] DD/ 0838 ? TD/TT: 09/13/24 0853 ? Appliquer Zigzag: ? Procedure Note Donnubia, Image - 09/21/2024 [facility] [address] [place] [address] [place] [address] Mammography Report Signed Patient: Yusra Rodriguez JMR#: [id number] 3 : 2Acct:[id number] Age/Sex: 83 / FADM Date: 09/13/24 Loc: MARY Attending Dr: Louie Narayanan MD Ordering Physician: Louie Narayanan MDResu lts: 1Negative Date of Service: 09/13/24Follow Up: 1 Year From Orig inal Mammogram Procedure(s): MM tomosynthesis screening BI Accession Number(s): [id number] cc: Louie Narayanan MD EXAMINATION: MM SCREENING [...] by: Judi Navarro DO 09/21/2024 04:42 PM [facility] Dictated By: Judi Navarro DO Signed By: <Electronically signed by Judi Navarro DO in OV> 09/21/24 1642 DD/ 0838 TD/TT: 09/13/24 0853 Appliquer Zigzag: us Louie Whalen MD IMG BI PROCEDURES Fin al Result * (ABNORMAL) Lipid Panel with Reflex to Direct LDL (02/11/2023 9:28 AM EDT) Cholesterol, Total 175 <200 mg/dL [facility] HDL Cholesterol 48(L) > OR = 50 mg/dL [facility] Triglycerides 263(H) <150 mg/dL [facility] Comment: If a non-fasting specimen was collected, consider repeat triglyceride testing on a fasting specimen if clinically indicated. Simón et al. J. of Clin. Lipidol. 2015;9:129-169. LDL Cholesterol 92 mg/dL (calc) [facility] Comment: Reference range: <100 Desirable range <100 mg/dL for primary prevention; ?? <70 mg/dL for patients with CHD or diabetic patients with > or = 2 CHD risk factors. LDL-C is now calculated using the Christa calculation, which is a validated novel method providing better accuracy than the Friedewald equation in the estimation of LDL-C. Ciaran NATHAN et al. HITESH. 2013;310(19): 0098-0344 (http://education.Aloqa/faq/HIG436) Chol/HDLC Ratio 3.6 <5.0 (calc) [facility] Non-HDL Cholesterol 127 <130 mg/dL (calc) [facility] Comment: For patients with diabetes plus 1 major ASCVD risk factor, treating to a non-HDL-C goal of <100 mg/dL (LDL-C of <70 mg/dL) is considered a therapeutic option. 02/11/2023 9:28 AM EDT 02/11/2023 9:29 AM EDT Narrative [facility] - 02/11/2023 7:45 PM EDT FASTING:NO FASTING: NO us Louie Whalen MD LAB BLOOD ORDERABLES Final Result [facility] [address], [place] [address] [email or web address] [place] [employer] [address] [place] [address] from Last 3 Months or Most Recently Relevant to Health Maintenance Insurance [facility] - [facility] Care Teams Senior Integration Developer Relationship Specialty Start Date End Date Louie Gutierrez MD [address] [place] [id number] PCP - General Internal Medicine 06/13/13 [facility]
--- OUTSIDE RECORDS SUMMARY | 2025-01-01 10:28 | XMS_ITS | Encounter Summary ---
Author Organization [employer] Address [address] [facility] 7t [place] [address] Care Team Providers Care Birth Certificate Clerk Name Role Phone Louie Gutierrez MD Primary Care Provide r Encounter Details Date Type Department Care Team (Late st Contact Info) Description 12/07/2022 Orders Only [facility] MED & PEDS [address] [place], [place] [phone] Roro Gregg LPN Social History Tobacco Use [...] Description 01/17/2025 10:00 AM EDT Office Visit [facility] MEDICINE [address] [place] [address] Louie Gutierrez MD [address] [place] [address] 07/09/2025 10:00 AM EST Office Visit [facility] ADULT DENTAL [address] [place], [place] [phone] Jennifer Fowler [address] [place] [address] documented as of this encounter Visit Diagnoses Not on filedocumented in this encounter Care Teams Birth Certificate Clerk Relationship Specialty Start Date End Date Louie Gutierrez MD [address] [place] [address] PCP - General Internal Medicine 06/13/13 Fatimah MARI 08/09/24 documented as of this encounter
--- OUTSIDE RECORDS SUMMARY | 2025-01-01 10:28 | XMS_ITS | Encounter Summary ---
Author Organization [email or web address] Address [address] [facility] 7t [place] [address] Care Team Providers Care Artist Relationship Manager Name Role Phone Louie Gutierrez MD Primary Care Provide r Reason for Visit * Reason Comments Med Refill Encounter Details Date Type Department Care Team ([facility] st Contact Info) Description 01/01/2025 Refill [facility] MEDICINE [address] [place], [place] [phone] Dena Christianson MD [address] [place], [place] [phone] Social History Tobacco Use Types Packs/Day Years [...] Description 01/17/2025 10:00 AM EDT Office Visit [facility] MEDICINE [address] [place] [address] Louie Gutierrez MD [address] [place] [address] 07/09/2025 10:00 AM EST Office Visit [facility] ADULT DENTAL [address] [place] [address] Malcolm, Jennifer [address] [place] [address] documented as of this encounter Visit Diagnoses Not on filedocumented in this encounter Additional Health Concerns Assessment Noted Time PHQ-9 Depression Total Score: 1 05/31/20 24 1:55 PM EDT documented as of this encounter Care Teams Artist Relationship Manager Relationship Specialty Start Date End Date Louie Gutierrez MD [address] [place] [address] PCP - General Internal Medicine 06/13/13 Fatimah [facility] 08/09/24 documented as of this encounter
--- OUTSIDE RECORDS SUMMARY | 2025-01-01 10:28 | XMS_ITS | Encounter Summary ---
Author Organization [employer] Address [address] [place] [address] 7t [place] [address] Care Team Providers Care Brick Handler Name Role Phone Louie Gutierrez MD Primary Care Provide r Encounter Details Date Type Department Care Team (Latest Contact Info) Description 07/02/2022 Abstract [facility] CONVERSIONS Dental, Provider, DDS Social History [...] Description 01/17/2025 10:00 AM EDT Office Visit [facility] MEDICINE [address] [place] [address] Louie Gutierrez MD [address] [place] [address] 07/09/2025 10:00 AM EST Office Visit [facility] ADULT DENTAL [address] [place] [address] Jennifer Fowler [address] [place] [address] documented as of this encounter Visit Diagnoses Not on filedocumented in this encounter Care Teams Brick Handler Relationship Specialty Start Date End Date Louie Gutierrez MD [address] [place] [address] PCP - General Internal Medicine 06/13/13 Fatimah AMRI 08/09/24 documented as of this encounter
--- OUTSIDE RECORDS SUMMARY | 2025-01-01 10:28 | XMS_ITS | Encounter Summary ---
Author Organization [employer] Address [address] [facility] 7t [place] [address] Care Team Providers Care Oval Or Circular Glass Cutter Name Role Phone Louie Gutierrez MD Primary Care Provide r Reason for Visit * Reason Comments Med Refill Encounter Details Date Type Department Care Team ([facility] st Contact Info) Description 09/01/2023 Refill [facility] MEDICINE [address] [place], [place] [phone] Louie Gutierrez MD [address] [place], [place] [phone] Social History Tobacco Use Types Packs/Day Years [...] Description 01/17/2025 10:00 AM EDT Office Visit [facility] MEDICINE [address] [place] [address] Louie Gutierrez MD [address] [place] [address] 07/09/2025 10:00 AM EST Office Visit [facility] ADULT DENTAL [address] [place] [address] Malcolm, Jennifer [address] [place] [address] documented as of this encounter Visit Diagnoses Not on filedocumented in this encounter Additional Health Concerns Assessment Noted Time PHQ-9 Depression Total Score: 0 02/04/20 23 2:31 PM EDT documented as of this encounter Care Teams Oval Or Circular Glass Cutter Relationship Specialty Start Date End Date Louie Gutierrez MD [address] [place] [address] PCP - General Internal Medicine 06/13/13 Fatimah A 08/09/24 documented as of this encounter
--- OUTSIDE RECORDS SUMMARY | 2025-01-01 10:28 | XMS_ITS | Encounter Summary ---
Author Organization [employer] Address [address] [place] [address] 7t [place] [address] Care Team Providers Care Factory Machine Computer Operator Name Role Phone Louie Gutierrez MD Primary Care Provide r Encounter Details Date Type Department Care Team (Latest Contact Info) Description 10/20/2020 Abstract [facility] CONVERSIONS Dental, Provider, DDS Social [...] Description 01/17/2025 10:00 AM EDT Office Visit [facility] MEDICINE [address] [place] [address] Louie Gutierrez MD [address] [place] [address] 07/09/2025 10:00 AM EST Office Visit [facility] ADULT DENTAL [address] [place] [address] Jennifer Fowler [address] [place] [address] documented as of this encounter Visit Diagnoses Not on filedocumented in this encounter Care Teams Factory Machine Computer Operator Relationship Specialty Start Date End Date Louie Gutierrez MD [address] [place] [address] PCP - General Internal Medicine 06/13/13 Fatimah MARI 08/09/24 documented as of this encounter
== END 2025-01-01 10:23 | disposition home or self-care (01) ==
LOC: HO.HOS 09:46
PROVIDERS: Visit Provider Physician Assistant
DX: S93.601A Unspecified sprain of right foot, initial encounter (principal); L03.115 Cellulitis of right lower limb; E11.9 Type 2 diabetes mellitus without complications
CPT/HCPCS: 99213

== ENCOUNTER → 2025-01-01 09:45 | Outpatient (BNVA) | payer OTHER, SELFPAY | PROVIDERS: Visit Provider Physician Assistant | DX: S93.601A Unspecified sprain of right foot, initial encounter (principal); L03.115 Cellulitis of right lower limb; E11.9 Type 2 diabetes mellitus without complications; Z79.2 Long term (current) use of antibiotics | CPT/HCPCS: 99212 ==

== ENCOUNTER 2025-01-09 15:25 | Inpatient (IN) | payer OTHER, SELFPAY ==
--- NOTE | ~2025-01-09 | XR_ITS ---
EXAMINATION: XR TIBIA AND FIBULA, RIGHT CLINICAL INFORMATION: r/o osteo COMPARISON: None available. TECHNIQUE: AP and lateral views of the right tibia and fibula were obtained. FINDINGS: No fracture, dislocation, or suspicious focal bony lesion. No region of focal osteopenia, or permeative bony change to suggest radiographic changes of osteomyelitis. No periostitis present. Imaged joints are unremarkable. No discrete soft tissue abnormality. XR/XR tibia fibula RT 2V IMPRESSION: Normal right tibia and fibula. No radiographic changes of osteomyelitis. Electronically signed by: Caleb Medina MD 01/09/2025 03:55 PM EDT
--- NOTE | ~2025-01-09 | US_ITS ---
EXAMINATION: US TRIPLEX LOWER EXTREMITY, RIGHT CLINICAL INFORMATION: Right lower extremity pain and swelling. COMPARISON: None available. TECHNIQUE: Color-flow triplex imaging with spectral analysis and compression Doppler were performed on the right lower extremity. FINDINGS: Respiratory variation, normal compression and augmented flow are noted throughout the right lower extremity. The visualized common femoral vein, superficial femoral vein, profunda femoral vein, popliteal vein and midcalf peroneal and posterior tibial venous segments show no evidence of deep venous thrombosis. There is no Gregory's cyst. US/US venous duplex LE RT IMPRESSION: No evidence of deep venous thrombosis involving the right lower extremity. Electronically signed by: Caleb Medina MD 01/09/2025 04:38 PM EDT
[2025-01-09 15:38] VITALS: BP 176/75; PULSE 90; RESP 18; TEMP 36.3; O2SAT 95; BMI 25.4
--- NOTE | 2025-01-09 15:38 | ED.GENADULT ---
HPI - General Adult General Chief complaint: General Medical Stated complaint: Fall 3 Weeks Ago- R Leg Swelling, Pain, Fever Time Seen by Provider: 01/09/25 16:17 Source: patient, family, old records reviewed and asl interpreter Mode of arrival: ambulatory Limitations: no limitations History of Present Illness ED Provider: Dr. King HPI narrative: 84-year-old Ghanaian-speaking female with a past medical history of HTN, diabetes, osteoporosis, presenting to the ED c/o fall down stairs 3 wks ago, was evulated in our ED 3 days later & started on keflex for RLE cellulitis - c/o continued continued RLE erythema and drainage w/swelling & itching. Currently on Keflex x7 days without relief (given 10d Rx). Reports fever last night and discharge from the wound. Related Data Home Medications ?Medication ?Instructions ?Recorded ?Confirmed aspirin 81 mg tablet,delayed 81 mg PO BEDTIME 12/26/20 08/05/24 release (Adult Low Dose Aspirin) insulin glargine 100 unit/mL (3 14 unit subcut BEDTIME 12/26/20 08/05/24 mL) subcutaneous pen (Lantus Solostar U-100 Insulin) metformin 1,000 mg tablet 1,000 mg PO BID 12/26/20 08/05/24 atorvastatin 80 mg tablet 80 mg PO BEDTIME 12/23/21 08/05/24 blood sugar diagnostic (OneTouch #10 ea 12/23/21 08/05/24 Ultra Test strips) furosemide 40 mg tablet 40 mg PO BID 12/23/21 08/05/24 lancets 33 gauge (TRUEplus Lancets) #100 ea 12/23/21 08/05/24 pen needle, diabetic 31 gauge x #1,200 ea 12/23/21 08/05/24 5/16 (UltiCare Pen Needle) amlodipine 5 mg tablet 5 mg PO BEDTIME 08/05/24 08/05/24 dulaglutide 4.5 mg/0.5 mL 4.5 mg subcut MO@0900 08/05/24 08/05/24 subcutaneous pen injector (Trulicity) glipizide 10 mg tablet 10 mg PO DAILY 08/05/24 08/05/24 hydralazine 50 mg tablet 50 mg PO BIDWM 08/05/24 08/05/24 valsartan 320 mg tablet 320 mg PO DAILY 08/05/24 08/05/24 Previous Rx's ?Medication ?Instructions ?Recorded calcium carbonate 600 mg PO BID #180 tabs 01/02/24 cholecalciferol (vitamin D3) 50 50 mcg PO QAM #30 caps 09/06/24 mcg (2,000 unit) capsule (Vitamin D3) cephalexin 500 mg capsule 500 mg PO QID #28 caps 12/15/24 Allergies Allergy/AdvReac Type Severity Reaction Status Date / Time Sulfa (Sulfonamide Allergy Intermediate RASH/ITCH Verified 01/09/25 15:44 Antibiotics) sulfamethoxazole Allergy Intermediate HIVES Verified 01/09/25 15:44 [From BACTRIM] trimethoprim [From BACTRIM] Allergy Intermediate HIVES Verified 01/09/25 15:44 oxycodone [From Percocet] Allergy Unknown Unknown Verified 01/09/25 15:44 penicillin V Allergy Unknown Unknown Verified 01/09/25 15:44 Review of Systems Review of Systems: Yes all other systems are reviewed and are negative PMFSH Past Medical History Medical History Hydronephrosis of right kidney Hypertension Diabetes mellitus Gram-negative bacteremia Septic shock UTI (urinary tract infection) Calculus of kidney Osteoporosis Surgical History History of surgery Hx of hemorrhoidectomy H/O colonoscopy Hx of cystoscopy Hx of lithotripsy Hx of hysterectomy Family History Family History Father Heart problem Mother No problems noted. 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 Blood pressure elevated. Heart rate normal. Respiratory rate normal. Temperature normal. Oxygen saturation normal. Appearance: Alert. Oriented X3. No acute distress. Head: Normal external exam. Normocephalic. Atraumatic. No Navas signs noted. No raccoon eyes noted Eyes: PERRLA. EOMI. Conjunctiva and sclera normal. Eyelids normal. ENT: TM's Normal. Pharynx normal. Uvula midline. Moist mucous membranes. No trismus noted. No drooling noted. No muffled voice noted. Neck: Normal inspection. Neck supple. FROM. No adenopathy. Thyroid Normal. No meningeal signs. No neck mass noted. CVS: Normal heart rate and rhythm. Heart sound normal. No murmurs noted. Pulses normal throughout. Respiratory: No respiratory distress. Painless inspiration. Breath sounds normal. No wheezes/rales/rhonchi noted. Chest nontender. No accessory muscle usage noted or decreased air movement noted. Abdomen: Soft and nontender. Bowel sounds normal in all 4 quadrants. No distention noted. No organomegaly noted. No visible injury noted. Back: No CVA tenderness. Full range of motion noted. Skin: Skin warm and dry. Normal skin color. Normal skin turgor. No rashes/lesions/lacerations noted. Extremities: right lower extremity: 7 x 5 cm area of redness, hotness, tenderness, no fluctuation, no abscess is appreciated, a few maculopapular rash scattered on the cellulitic area. Neuro: Oriented X 3. Cranial nerve exam: II-XII are grossly intact No motor deficit. No sensory deficit. Reflexes normal. Course Course Course Narrative: This is a Rapid Medical Exam performed in triage by Danielle Saldaña PA-C. Full HPI, ROS and PE to be performed by primary ED provider. PE: +RLE wound with erythema & swelling and slight drainage. + bilateral LE pitting edema. + right calf tenderness Plan: Labs, ultrasound, x-ray Reevaluation(s) Reevaluation #1: Right lower extremity cellulitis not responding to oral antibiotic will admit for IV antibiotic. Patient do meet criteria for sepsis. Time: 17:14 Medications Administered Discontinued Medications Generic Name Dose Route Start Last Admin Trade Name Freq PRN Reason Stop Dose Admin Piperacillin Sod/Tazobactam 50 mls @ 100 mls/hr 01/09/25 16:31 01/09/25 16:43 Sod 3.375 gm/ Sodium Chloride IV 01/09/25 17:00 100 mls/hr ONCE ONE Administration Medical Decision Making Differential Diagnosis Differential Diagnoses: The differential diagnosis associated with the presentation includes ( RLE cellulitis, RLE osteomyelitis, RLE DVT, electrolyte derangement, severe anemia.) Admission/Observation Consideration of admission/observation: Escalation of care including admission/observation considered Consult Healthcare Provider Management of the patient was discussed with: Hospitalist ( Dr. Jean) Lab Data MDM Lab Attestation statement: I reviewed the patient's lab results. 01/09/25 16:02 01/09/25 16:02 Labs: Lab Results 01/09/25 Range/Units 16:02 WBC 9.1 (4.8-10.8) X10*3/uL RBC 4.33 (4.20-5.50) X10*6/uL Hgb 13.1 (12.0-16.0) g/dl Hct 38.2 (37.0-47.0) % MCV 88.2 (80.0-98.0) fL MCH 30.3 (27.0-33.0) pg MCHC 34.3 (31.0-35.0) g/dl RDW 13.1 (11.0-16.0) % Plt Count 272 D (160-400) X10*3/uL MPV 9.0 L (9.4-12.3) fL Immature Gran % (Auto) 0.4 (0.0-0.4) % Neut % (Auto) 63.2 (45-73) % Lymph % (Auto) 25.5 (20-40) % [place] % (Auto) 7.2 (2-11) % Eos % (Auto) 3.0 (0-4) % Baso % (Auto) 0.7 (0-2) % Lymph # (Auto) 2.3 (1.2-4.9) X10*3/uL [place] # (Auto) 0.7 (0.1-1.2) X10*3/uL Eos # (Auto) 0.3 (0.0-0.4) X10*3/uL Baso # (Auto) 0.1 (0.0-0.2) X10*3/uL Abs Immat Gran (auto) 0.04 H (0.00-0.03) X10*3/uL Absolute Neuts (auto) 5.8 (2.0-8.3) x10*3/uL Absolute Nucleated RBC 0.000 (0.0-0.012) X10*3/uL Nucleated RBC % (auto) 0.0 (0.0-0.2) /100WBC Sodium 137 (135-145) mmol/L Potassium 3.7 (3.3-5.1) mmol/L Chloride 103 (96-108) mmol/L Carbon Dioxide 26 (22-29) mmol/L Anion Gap 12 (12-20) BUN 22 H (9-16) mg/dL Creatinine 0.97 (0.5-1.4) mg/dL Estim Creat Clear Calc 44.5 Estimated GFR 55 Random Glucose 246 H (60-115) mg/dL Calcium 9.3 D (8.4-10.2) mg/dL Total Bilirubin 0.3 (0.0-1.0) mg/dL Direct Bilirubin 0.1 (0.0-0.5) mg/dL AST 15 (5-31) U/L ALT 22 (0-31) U/L Alkaline Phosphatase 99 (39-117) U/L B-Natriuretic Peptide 35 (<100) pg/mL Total Protein 7.4 (6.5-8.0) g/dL Albumin 4.0 (3.5-5.0) g/dL Independent Interpretation I performed an independent interpretation of an: Plain X-Ray ( right leg x-ray: No osteomyelitis.) and Ultrasound ( Venous ultrasound: No DVT.) Radiology Impression Discussion of test interpretation with radiology: I have reviewed the radiologist's reading. Discharge Plan Discharge Clinical Impression: Cellulitis of right lower extremity Patient Disposition: Admitted As Inpatient Print Language: Ghanaian
[2025-01-09 16:08] LABS: Basophils Absolute Auto 0.1 X10*3/uL (0.0-0.2); Basophils Percent Auto 0.7 % (0-2); Eosinophils Absolute Auto 0.3 X10*3/uL (0.0-0.4); Hematocrit 38.2 % (37.0-47.0); Hemoglobin 13.1 g/dl (12.0-16.0); Imm Gran Abs Auto 0.04 X10*3/uL (0.00-0.03); Imm Gran Pct Auto 0.4 % (0.0-0.4); Lymphocytes Absolute Auto 2.3 X10*3/uL (1.2-4.9); Lymphocytes Percent Auto 25.5 % (20-40); MANUAL DIFF FLAG NO; Mean Corpuscular HGB Conc 34.3 g/dl (31.0-35.0); Mean Corpuscular Hemoglobin 30.3 pg (27.0-33.0); Mean Corpuscular Volume 88.2 fL (80.0-98.0); Monocytes Absolute Auto 0.7 X10*3/uL (0.1-1.2); Monocytes Percent Auto 7.2 % (2-11); Neutrophils Absolute Auto 5.8 x10*3/uL (2.0-8.3); Neutrophils Percent Auto 63.2 % (45-73); Platelet Count 272 X10*3/uL (160-400); Red Blood Count 4.33 X10*6/uL (4.20-5.50); Red Cell Distribution Width 13.1 % (11.0-16.0); White Blood Count 9.1 X10*3/uL (4.8-10.8)
[2025-01-09 16:23] LABS: Alanine Aminotransferase 22 U/L (0-31); Alkaline Phosphatase 99 U/L (39-117); Anion Gap 12 (12-20); Aspartate Amino Transferase 15 U/L (5-31); Bilirubin Direct 0.1 mg/dL (0.0-0.5); Bilirubin Total 0.3 mg/dL (0.0-1.0); Blood Urea Nitrogen 22 mg/dL (9-16); Calcium 9.3 mg/dL (8.4-10.2); Carbon Dioxide 26 mmol/L (22-29); Chloride 103 mmol/L (96-108); Creatinine Clr Calc Pharmacy 44.5; Estimated Glomerular Filt Rate 55; Glucose Random 246 mg/dL (60-115); Potassium 3.7 mmol/L (3.3-5.1); Sodium 137 mmol/L (135-145); Total Protein 7.4 g/dL (6.5-8.0)
[2025-01-09 16:39] VITALS: BP 165/73; PULSE 78; RESP 20; TEMP 36.1; O2SAT 96
[2025-01-09] MEDS: Piperacillin Sodium/Tazobactam 3.375 GM in 0.9 % Sodium Chloride 50 ML IV (16:43)
[2025-01-09 16:46] LABS: B Type Natriuretic Peptide 35 pg/mL (<100)
[2025-01-09] MEDS: vancomycin HCL 1,000 MG, vancomycin HCL 750 MG in 0.9 % Sodium Chloride 500 ML 267.5 MG IV (17:14)
--- NOTE | 2025-01-09 17:20 | P.HPHOSP_ITS ---
History of Present Illness Date of Service: 01/09/25 Chief Complaint: Cellulitis of right leg Pt is an 84-year-old female with a PMH significant for?HTN, HLD, insulin- dependent type 2 diabetes, nephrolithiasis s/p lithotripsy, osteoporosis, and CKD 3 who presents with cellulitis of anterior of the right lower extremity. 3 weeks ago fell and had a cut to the front of right leg which subsequent became infected. She was prescibed 7 ddays of keflex on 12/17, and when seen by PCP on 01/02 she was given additional Abx for 10 days. She's reporting that area is still red and painful, and is being admitted for Cellulitis failing outpatient Abx.. See picture below. There is no fever, normal WBC, She is given Vancomycin. Review of Systems 2 Review of Systems: Gen: no fever Resp: no sob, no cough CV: no chest, no PARRISH, no leg edema GI: No n/v, no abd pain Neuro: No confusion [facility] Medical History Hydronephrosis of right kidney Hypertension Diabetes mellitus Gram-negative bacteremia Septic shock UTI (urinary tract infection) Calculus of kidney Osteoporosis Family History Father Heart problem Mother No problems noted. Surgical History History of surgery Hx of hemorrhoidectomy H/O colonoscopy Hx of cystoscopy Hx of lithotripsy Hx of hysterectomy Social History Household Members: None Housing: Apartment Do you presently have visiting nurse or other home services: No Alcohol intake: never Patient Tobacco Use Status: Never used Tobacco Smoked in Last 30 Days: No e-Cigarette/Vaping Use: Never Used Patient Interested in Nicotine Replacement: No Patient Given Instructions on How to Stop Smoking: No Second Hand Smoke Exposure: No Use of substances other than those prescribed or required for medical reasons: No Have you been hit, kicked, punched, or otherwise hurt by someone within the past year? 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 Meds Allergies Allergy/AdvReac Type Severity Reaction Status Date / Time Sulfa (Sulfonamide Allergy Intermediate RASH/ITCH Verified 01/09/25 15:44 Antibiotics) sulfamethoxazole Allergy Intermediate HIVES Verified 01/09/25 15:44 [From BACTRIM] trimethoprim [From BACTRIM] Allergy Intermediate HIVES Verified 01/09/25 15:44 oxycodone [From Percocet] Allergy Unknown Unknown Verified 01/09/25 15:44 penicillin V Allergy Unknown Unknown Verified 01/09/25 15:44 Active Medications: Current Medications Acetaminophen (Acetaminophen 325 Mg Tablet) 650 mg PO Q6H PRN PRN Reason: Pain, Mild 1-3,fever,headache Calcium Carbonate (Calcium Carbonate 750 Mg Tab.Chew) 750 mg PO Q4H PRN PRN Reason: Heartburn Vancomycin HCl 1,000 mg/Vancomycin HCl 750 mg/ Sodium Chloride 535 mls @ 267.5 mls/hr IV ONCE ONE Stop: 01/09/25 18:44 Last Admin: 01/09/25 17:14 Dose: 267.5 mls/hr Magnesium Hydroxide (Milk Of Magnesia 30 Ml Oral.Susp) 30 ml PO DAILY PRN PRN Reason: Constipation Melatonin (Melatonin 3 Mg Tablet) 6 mg PO BEDTIME PRN PRN Reason: Insomnia Ondansetron HCl (Ondansetron Hcl 4 Mg/2 Ml Vial) 4 mg IVPUSH Q8H PRN PRN Reason: Nausea and Vomiting Sodium Chloride (0.9 % Sodium Chloride Flush 3 Ml Syringe) [facility]ations ?Medication ?Instructions ?Recorded ?Confirmed ?Last Taken ?Type aspirin 81 mg tablet,delayed 81 mg PO DAILY@1200 12/26/20 01/09/25 01/08/25 History release (Adult Low Dose Aspirin) insulin glargine 100 unit/mL (3 16 unit subcut BEDTIME 12/26/20 01/09/25 01/08/25 History mL) subcutaneous pen (Lantus Solostar U-100 Insulin) metformin 1,000 mg tablet 1,000 mg PO BID 12/26/20 01/09/25 01/09/25 History atorvastatin 80 mg tablet 80 mg PO BEDTIME 12/23/21 01/09/25 01/08/25 History blood sugar diagnostic (OneTouch #10 ea 12/23/21 08/05/24 08/05/24 09:00 History Ultra Test strips) furosemide 40 mg tablet 40 mg PO BID 12/23/21 01/09/25 01/09/25 History lancets 33 gauge (TRUEplus Lancets) #100 ea 12/23/21 08/05/24 08/05/24 09:00 History pen needle, diabetic 31 gauge x #1,200 ea 12/23/21 08/05/24 08/05/24 09:00 History 5/16 (UltiCare Pen Needle) amlodipine 5 mg tablet 5 mg PO DAILY 08/05/24 01/09/25 01/08/25 History dulaglutide 4.5 mg/0.5 mL 4.5 mg subcut MO@0900 08/05/24 01/09/25 01/07/25 History subcutaneous pen injector (Trulicity) glipizide 10 mg tablet 10 mg PO DAILY 08/05/24 01/09/25 01/09/25 History hydralazine 50 mg tablet 50 mg PO BIDWM 08/05/24 01/09/25 01/09/25 History valsartan 320 mg tablet 320 mg PO DAILY 08/05/24 01/09/25 01/09/25 History apixaban 5 mg tablet (Eliquis) 5 mg PO BID 01/09/25 01/09/25 01/09/25 History cholecalciferol (vitamin D3) 50 50 mcg PO DAILY 01/09/25 01/09/25 01/09/25 History mcg (2,000 unit) capsule (Vitamin D3) Physical Exam 2 Vital Signs and Narrative: Vital Signs: Last Vital Signs Temp 96.9 F 01/09/25 16:39 Pulse 78 01/09/25 16:39 Resp 20 01/09/25 16:39 BP 165/73 H 01/09/25 16:39 Pulse Ox 96 01/09/25 16:39 O2 Del Method Room Air 01/09/25 16:39 BMI result Body Mass Index 25.4 Const: Other: General: AO X 3, no acute distress Resp: CTA bilateral CVS: S1,S2,RRR GI: +BS, NT, no distention Skin: Neuro: motor grossly intact Psych: appropriate affect Results Labs 01/10/25 05:42 01/10/25 05:42 Labs: Laboratory Results - last 24 hr 01/09/25 16:02 MCV 88.2 MCH 30.3 MCHC 34.3 RDW 13.1 Plt Count 272 D MPV 9.0 L Immature Gran % (Auto) 0.4 Neut % (Auto) 63.2 Lymph % (Auto) 25.5 [place] % (Auto) 7.2 Eos % (Auto) 3.0 Baso % (Auto) 0.7 Lymph # (Auto) 2.3 [place] # (Auto) 0.7 Eos # (Auto) 0.3 Baso # (Auto) 0.1 Abs Immat Gran (auto) 0.04 H Absolute Neuts (auto) 5.8 Absolute Nucleated RBC 0.000 Nucleated RBC % (auto) 0.0 Anion Gap 12 Estim Creat Clear Calc 44.5 Estimated GFR 55 Random Glucose 246 H Calcium 9.3 D Total Bilirubin 0.3 Direct Bilirubin 0.1 AST 15 ALT 22 Alkaline Phosphatase 99 B-Natriuretic Peptide 35 Total Protein 7.4 Albumin 4.0 Imaging Radiologist's Impressions: Impressions Tibia/Fibula X-Ray 01/09/25 15:42 IMPRESSION: Normal right tibia and fibula. No radiographic changes of osteomyelitis. Electronically signed by: Caleb Medina MD 01/09/2025 03:55 PM EDT RP Venous Duplex 01/09/25 16:15 IMPRESSION: No evidence of deep venous thrombosis involving the right lower extremity. Electronically signed by: Caleb Medina MD 01/09/2025 04:38 PM EDT RP Assessment and Plan (1) Cellulitis of right lower extremity: Status: Acute Plan 84-year-old female with a PMH significant for?HTN, HLD, insulin-dependent type 2 diabetes, nephrolithiasis s/p lithotripsy, osteoporosis, and CKD 3 with possible non resolving cellulitis with PO Abx Cellulitis, of right anterior leg continue vanco, add ceftriaxone, topical steroid HTN resume home meds per med rec Insulin dependent type 2 diabetes with hyperglycemia holding oral agents Lantus, sliding scale diabetic diet CAD/HLD Continue statin, ASA Full Code DVT Prophylaxis: eliquis Quality Stroke Does the patient have a stroke diagnosis?: No VTE Prior VTE?: No VTE Risk Level:: Medical - moderate - high VTE Device Contraindication: Treatment Not Indicated VTE Drug Contraindication: N/A - Med Ordered
[2025-01-09 17:38] LABS: C Reactive Protein 0.67 mg/dL (< or = 0.50)
[2025-01-09 18:20] LABS: Erythrocyte Sedimentation Rate 20 MM/HR (0-20)
--- NOTE | 2025-01-09 18:53 | PHA.MEDREC ---
Addendum entered by Jolynn Zhao RPh 01/09/25 19:00: reviewed by [facility]. Original Note: Pharmacy Consult ? Medication Reconciliation Pharmacy has completed the medication reconciliation. Spoke to patient through technical support consultant service ( Kelvin) to confirm med list. Patient had her med box medications with her. Patient states she is no longer taking Keflex 500 mg (wasn't working so she stopped). Patient confirmed Lantus 16 units at bedtime, Trulicity 4.5 mg every Tuesday, last dose 01/07/25.
[2025-01-09 19:08] VITALS: BP 158/74; PULSE 71; RESP 18; TEMP 36.6; O2SAT 98
[2025-01-09 19:38] VITALS: BMI 25.8
[2025-01-09 20:09] LABS: Glucose, Whole Blood 245 mg/dL (60-115)
[2025-01-09] MEDS: diphenhydrAMINE HCL 50 MG/ML VIAL IVPUSH (20:41)
[2025-01-09] MEDS: Insulin Lispro 100 UNIT/ML 3 ML VIAL SUBCUT (21:11)
[2025-01-09] MEDS: Insulin Glargine,Hum.rec.anlog 100 UNIT/ML 10 ML VIAL 8 UNIT SUBCUT (21:32)
[2025-01-09] MEDS: Doxycycline Hyclate 100 MG in 0.9 % Sodium Chloride 250 ML 166.67 MG IV (21:33)
[2025-01-09] MEDS: Apixaban 5 MG TABLET PO (21:33)
[2025-01-09 23:26] VITALS: BP 141/65; PULSE 73; RESP 16; TEMP 36.3; O2SAT 98
[2025-01-09] MEDS: 0.9 % Sodium Chloride Flush 3 ML SYRINGE IVFLUSH (23:53)
[2025-01-10 01:40] VITALS: BMI 25.9
[2025-01-10 03:13] VITALS: BP 145/67; PULSE 64; RESP 16; TEMP 36.1; O2SAT 96
[2025-01-10 06:24] LABS: Hematocrit 36.8 % (37.0-47.0); Hemoglobin 12.7 g/dl (12.0-16.0); Mean Corpuscular HGB Conc 34.5 g/dl (31.0-35.0); Mean Corpuscular Hemoglobin 30.7 pg (27.0-33.0); Mean Corpuscular Volume 88.9 fL (80.0-98.0); Mean Platelet Volume 9.4 fL (9.4-12.3); Platelet Count 244 X10*3/uL (160-400); Red Blood Count 4.14 X10*6/uL (4.20-5.50); Red Cell Distribution Width 13.2 % (11.0-16.0); White Blood Count 7.9 X10*3/uL (4.8-10.8)
[2025-01-10 06:45] LABS: Anion Gap 12 (12-20); Blood Urea Nitrogen 20 mg/dL (9-16); Calcium 8.4 mg/dL (8.4-10.2); Carbon Dioxide 24 mmol/L (22-29); Chloride 108 mmol/L (96-108); Creatinine Clr Calc Pharmacy 52.4; Estimated Glomerular Filt Rate > 60; Glucose Random 132 mg/dL (60-115); Sodium 140 mmol/L (135-145)
--- NOTE | 2025-01-10 07:08 | PC.NURSE ---
Patient developed a rash during infusion of Vancomycin. Rash appeared red on face and back, patient c/o itchiness. Vanco paused initially. Dr. Villegas notified. Benadryl 50 mg IV ordered/administered with good effect. Dr. Villegas wanted the remainder of dose given, Vanco infused at 125ml/hr.
[2025-01-10 07:09] VITALS: BP 155/82; PULSE 72; RESP 16; TEMP 36.7; O2SAT 96
[2025-01-10 07:21] LABS: Glucose, Whole Blood 138 mg/dL (60-115)
--- NOTE | 2025-01-10 08:58 | PM.DS ---
DS: Providers Provider Date of Service: 01/10/25 Date of admission: 01/09/25 17:13 Date of discharge: 01/10/25 Primary care physician: Louie Narayanan MD DS: Diagnosis Discharge Diagnosis (1) Cellulitis of right lower extremity: Status: Acute DS: Summary Hospital Course Hospital Course: admission hpi Chief Complaint: Cellulitis of right leg Pt is an 84-year-old female with a PMH significant for?HTN, HLD, insulin-dependent type 2 diabetes, nephrolithiasis s/p lithotripsy, osteoporosis, and CKD 3 who presents with cellulitis of anterior of the right lower extremity. 3 weeks ago fell and had a cut to the front of right leg which subsequent became infected. She was prescibed 7 ddays of keflex on 12/17, and when seen by PCP on 01/02 she was given additional Abx for 10 days. She's reporting that area is still red and painful, and is being admitted for Cellulitis failing outpatient Abx.. See picture below. There is no fever, normal WBC, She is given Vancomycin. hospital course: Patient presented with leg painv and celluoitis that has previously been treated on outpatient basis, she had no fever, wbc normal, normal inflammatory markers are negative, the skin looks more of non infectious inflammation rather than active skin infection, at any event, she was treated with IV Vanco and Zosyn in the ED, continued on IV doxy overnight and will transition to oral doxycyline this morning. Time Attestation Discharge Coordination Time (in mins): 35 Quality: Safe Use of Opioids Does Pt have an Active Cancer Diagnosis on the Problem List?: No Quality: Stroke Does the patient have a stroke diagnosis?: No Physical Exam Vital Signs: Vital Signs: Last Vital Signs Temp 98.1 F 01/10/25 07:09 Pulse 72 01/10/25 07:09 Resp 16 01/10/25 07:09 BP 155/82 H 01/10/25 07:09 Pulse Ox 96 01/10/25 07:09 O2 Del Method Room Air 01/10/25 07:09 BMI result Body Mass Index 25.9 Const: Other: General: AO X 3, no acute distress Resp: CTA bilateral CVS: S1,S2,RRR GI: +BS, NT, no distention Skin: 01/10 01/09 Neuro: motor grossly intact Psych: appropriate affect DS: Data Data Completed and Pending Completed studies during hospitalization [Text1]: Procedures Dilation of Right Ureter with Intraluminal Device, Via Natural or Artificial Opening Endoscopic (08/05/24) Extirpation of Matter from Right Ureter, Via Natural or Artificial Opening Endoscopic (08/05/24) Fluoroscopy of Right Kidney, Ureter and Bladder (08/05/24) Fragmentation in Right Ureter, Via Natural or Artificial Opening Endoscopic (04/02/22) Insertion of Infusion Device into Right Atrium, Percutaneous Approach (02/26/22) Introduction of Vasopressor into Peripheral Vein, Percutaneous Approach (02/26/22) Ultrasonography of Superior Vena Cava, Guidance (02/26/22) Labs on day of discharge: Laboratory Results - last 24 hr 01/09/25 01/09/25 01/10/25 16:02 19:12 05:42 WBC 9.1 7.9 RBC 4.33 4.14 L Hgb 13.1 12.7 Hct 38.2 36.8 L MCV 88.2 88.9 MCH 30.3 30.7 MCHC 34.3 34.5 RDW 13.1 13.2 Plt Count 272 D 244 MPV 9.0 L 9.4 Immature Gran % (Auto) 0.4 Neut % (Auto) 63.2 Lymph % (Auto) 25.5 [facility] % (Auto) 7.2 Eos % (Auto) 3.0 Baso % (Auto) 0.7 Lymph # (Auto) 2.3 [facility] # (Auto) 0.7 Eos # (Auto) 0.3 Baso # (Auto) 0.1 Abs Immat Gran (auto) 0.04 H Absolute Neuts (auto) 5.8 Absolute Nucleated RBC 0.000 0.000 Nucleated RBC % (auto) 0.0 0.0 ESR 20 Sodium 137 140 Potassium 3.7 4.0 Chloride 103 108 Carbon Dioxide 26 24 Anion Gap 12 12 BUN 22 H 20 H Creatinine 0.97 0.83 Estim Creat Clear Calc 44.5 52.4 Estimated GFR 55 > 60 POC Glucose 245 H Random Glucose 246 H 132 H Calcium 9.3 D 8.4 D Total Bilirubin 0.3 Direct Bilirubin 0.1 AST 15 ALT 22 Alkaline Phosphatase 99 C-Reactive Protein 0.67 H B-Natriuretic Peptide 35 Total Protein 7.4 Albumin 4.0 01/10/25 07:11 WBC RBC Hgb Hct MCV MCH MCHC RDW Plt Count MPV Immature Gran % (Auto) Neut % (Auto) Lymph % (Auto) [facility] % (Auto) Eos % (Auto) Baso % (Auto) Lymph # (Auto) [facility] # (Auto) Eos # (Auto) Baso # (Auto) Abs Immat Gran (auto) Absolute Neuts (auto) Absolute Nucleated RBC Nucleated RBC % (auto) ESR Sodium Potassium Chloride Carbon Dioxide Anion Gap BUN Creatinine Estim Creat Clear Calc Estimated GFR POC Glucose 138 H Random Glucose Calcium Total Bilirubin Direct Bilirubin AST ALT Alkaline Phosphatase C-Reactive Protein B-Natriuretic Peptide Total Protein Albumin Discharge Plan Discharge Anticipated Discharge Date/Time: 01/10/25 09:13 Patient Disposition: Home, Self-Care Discharge Diagnosis: Cellulitis of the right leg Referrals: Louie Narayanan MD [Primary Care Provider] - 1 Week Discharge Medications: New doxycycline monohydrate 100 mg tablet 100 mg PO BID Qty: 12 0RF tramadol 50 mg Tablet 25 mg PO Q6H PRN (Reason: Pain, Severe (Pain Scale 7-10)) Qty: 14 0RF Continued calcium carbonate 600 mg calcium (1,500 mg) tablet 600 mg PO BID Qty: 180 3RF Eliquis 5 mg tablet 5 mg PO BID cholecalciferol (vitamin D3) [Vitamin D3] 50 mcg (2,000 unit) capsule 50 mcg PO DAILY amlodipine 5 mg tablet 5 mg PO DAILY valsartan 320 mg tablet 320 mg PO DAILY hydralazine 50 mg tablet 50 mg PO BIDWM glipizide 10 mg tablet 10 mg PO DAILY Trulicity 4.5 mg/0.5 mL pen injector 4.5 mg subcut MO@0900 aspirin [Adult Low Dose Aspirin] 81 mg tablet,delayed release (DR/EC) 81 mg PO DAILY@1200 metformin 1,000 mg tablet 1,000 mg PO BID Lantus Solostar U-100 Insulin 100 unit/mL (3 mL) insulin pen 16 unit subcut BEDTIME furosemide 40 mg tablet 40 mg PO BID atorvastatin 80 mg tablet 80 mg PO BEDTIME (DME) lancets [TRUEplus Lancets] 33 gauge misc See Rx Instructions topical TID Qty: 100 Rx Instructions: As directed (DME) OneTouch Ultra Test Strip See Rx Instructions .ROUTE TID Qty: 10 Rx Instructions: As directed (DME) pen needle, diabetic [UltiCare Pen Needle] 31 gauge x 5/16 needle See Rx Instructions subcut DAILY Qty: 1200 Rx Instructions: As directed Diet: Diabetic diet Activity on Discharge: As tolerated Stand Alone Forms: Patient Portal Discharge page Print Language: Pakistani Care Plan Goals: recovery from cellulitis of the leg Health Concerns: cellulitis of the leg Plan of Treatment: take Doxycyline as recommended and follow up with your doctor in a week Assessment: see abov
[2025-01-10] MEDS: Cholecalciferol (Vitamin D3) 25 MCG TABLET 50 MCG PO (09:48)
[2025-01-10] MEDS: Acetaminophen 325 MG TABLET 650 MG PO (09:48)
[2025-01-10 09:49] VITALS: BP 150/76
[2025-01-10] MEDS: Furosemide 40 MG TABLET PO (09:49)
[2025-01-10 09:50] VITALS: BP 150/76
[2025-01-10] MEDS: Valsartan 320 MG TABLET PO (09:50)
[2025-01-10] MEDS: hydrALAZINE HCl 50 MG TABLET PO (09:50)
[2025-01-10 09:51] VITALS: BP 150/76
[2025-01-10] MEDS: glipiZIDE 10 MG TABLET PO (09:51)
[2025-01-10] MEDS: Apixaban 5 MG TABLET PO (09:51)
[2025-01-10] MEDS: amLODIPine Besylate 5 MG TABLET PO (09:51)
[2025-01-10] MEDS: metFORMIN HCl 1,000 MG TABLET 1000 MG PO (09:51)
[2025-01-10] MEDS: Doxycycline Hyclate 100 MG in 0.9 % Sodium Chloride 250 ML 166.7 MG IV (09:53)
[2025-01-10] MEDS: 0.9 % Sodium Chloride Flush 3 ML SYRINGE IVFLUSH (09:55)
[2025-01-10] MEDS: traMADoL HCL 50 MG TABLET 25 MG PO (10:55)
[2025-01-10 11:07] LABS: Glucose, Whole Blood 190 mg/dL (60-115)
[2025-01-10] MEDS: Insulin Lispro 100 UNIT/ML 3 ML VIAL SUBCUT (11:23)
[2025-01-10] MEDS: Aspirin Enteric Coated 81 MG TABLET.DR PO (11:23)
[2025-01-10 11:42] VITALS: BP 159/72; PULSE 74; RESP 16; TEMP 36.3; O2SAT 98
--- NOTE | 2025-01-10 15:18 | MHC.CM.PN ---
PT DISCHARGED HOME WITH NO SERVICES VIA PRIVATE TRANSPORT PRIOR TO BEING SEEN BY CM
== END 2025-01-10 13:34 | disposition home or self-care (01) | DRG 603 ==
LOC: HO.ED 17:13 → HO.EDOVER 17:17 → HO.S3 17:55
PROVIDERS: Physician Assistant; Admitting Provider Internal Medicine; Emergency Provider Emergency Medicine; PCP Internal Medicine; Visit Provider Internal Medicine
DX: L03.115 Cellulitis of right lower limb (principal); I12.9 Hypertensive chronic kidney disease with stage 1 through stage 4 chronic kidney disease, or unspecified chronic kidney disease; E11.65 Type 2 diabetes mellitus with hyperglycemia; I25.10 Atherosclerotic heart disease of native coronary artery without angina pectoris; E78.5 Hyperlipidemia, unspecified; N18.30 Chronic kidney disease, stage 3 unspecified; E11.22 Type 2 diabetes mellitus with diabetic chronic kidney disease; Z79.01 Long term (current) use of anticoagulants; Z79.82 Long term (current) use of aspirin; Z79.84 Long term (current) use of oral hypoglycemic drugs; Z79.85 Long-term (current) use of injectable non-insulin antidiabetic drugs; Z79.899 Other long term (current) drug therapy
CPT/HCPCS: 36415; 73590; 80048; 80076; 82947; 83880; 85025; 85027; 85652; 86140; 87040; 93971; 99221; 99285; J1200; J1271; J2543; J3370

== ENCOUNTER → 2025-01-09 15:42 | Outpatient (BNV) | payer OTHER, SELFPAY | PROVIDERS: PCP Internal Medicine; Visit Provider Radiology Diagnostic Radiology | DX: R22.41 Localized swelling, mass and lump, right lower limb (principal); M79.661 Pain in right lower leg | CPT/HCPCS: 73590; 93971 ==

== ENCOUNTER → 2025-01-09 17:13 | Outpatient (BNV) | payer OTHER, SELFPAY | PROVIDERS: Admitting Provider Internal Medicine; Emergency Provider Emergency Medicine; PCP Internal Medicine; Visit Provider Internal Medicine | DX: L03.115 Cellulitis of right lower limb (principal) | CPT/HCPCS: 99222; 99239 ==

== ENCOUNTER 2025-01-23 11:13 | Emergency (ER) | payer OTHER, SELFPAY ==
--- NOTE | ~2025-01-23 | XR_ITS ---
EXAMINATION: XR TIBIA AND FIBULA, RIGHT CLINICAL INFORMATION: overlying wound, DM, r/o osteo COMPARISON: January 09, 2025 TECHNIQUE: AP and lateral views of the right tibia and fibula were obtained. FINDINGS: There is no focal osteopenia or cortical erosions. There is no periosteal new bone formation. There is no soft tissue gas. XR/XR tibia fibula RT 2V IMPRESSION: Unremarkable x-rays of the right lower leg. MRI is more sensitive to detect osteomyelitis. Electronically signed by: Lloyd Rajan MD 01/23/2025 12:28 PM EDT
--- NOTE | 2025-01-23 11:24 | ED_ITS ---
HPI - Extremity Injury (Lower) General Chief Complaint: Skin/Abscess/Foreign Body Stated Complaint: R Leg Pain Fell 8 Weeks Ago Time Seen by Provider: 01/23/25 12:00 Source: patient, family (daughter) and translator and interpreter Mode of arrival: ambulatory Limitations: language barrier and other (poor historian) History of Present Illness ED Provider: GOLDIE BHATIA PA-C HPI Narrative: 84-year-old female with pmhx significant for hypertension, diabetes, osteoporosis presents to the ED today for evaluation of worsening right lower extremity pain and redness x1 week. Patient reports fall 1.5 months ago where she sustained an open wound to her right morris. Reports being evaluated at our facility for this on 01/09/25, treated with IV antibiotics for concern of cellulitis, and discharged home on a course of doxycycline. Reports following up with her PCP this past week, prescribed another course of doxycycline. She has 3 days left of this course. She presents today with her daughter due to concern for worsening infection. Reports increased area of redness. Admits to subjective fevers at home. No documented temperature. Denies numbness/tingling/ weakness of the RLE. Related Data Home Medications ?Medication ?Instructions ?Recorded ?Confirmed aspirin 81 mg tablet,delayed 81 mg PO DAILY@1200 12/26/20 01/09/25 release (Adult Low Dose Aspirin) insulin glargine 100 unit/mL (3 16 unit subcut BEDTIME 12/26/20 01/09/25 mL) subcutaneous pen (Lantus Solostar U-100 Insulin) metformin 1,000 mg tablet 1,000 mg PO BID 12/26/20 01/09/25 atorvastatin 80 mg tablet 80 mg PO BEDTIME 12/23/21 01/09/25 blood sugar diagnostic (OneTouch #10 ea 12/23/21 08/05/24 Ultra Test strips) furosemide 40 mg tablet 40 mg PO BID 12/23/21 01/09/25 lancets 33 gauge (TRUEplus Lancets) #100 ea 12/23/21 08/05/24 pen needle, diabetic 31 gauge x #1,200 ea 12/23/21 08/05/24 5/16 (UltiCare Pen Needle) amlodipine 5 mg tablet 5 mg PO DAILY 08/05/24 01/09/25 dulaglutide 4.5 mg/0.5 mL 4.5 mg subcut MO@0900 12/15/24 05/21/25 [facility] glipizide 10 mg tablet 10 mg PO DAILY 08/05/24 01/09/25 hydralazine 50 mg tablet 50 mg PO BIDWM 08/05/24 01/09/25 valsartan 320 mg tablet 320 mg PO DAILY 08/05/24 01/09/25 apixaban 5 mg tablet (Eliquis) 5 mg PO BID 01/09/25 01/09/25 cholecalciferol (vitamin D3) 50 50 mcg PO DAILY 01/09/25 01/09/25 mcg (2,000 unit) capsule (Vitamin D3) Previous Rx's ?Medication ?Instructions ?Recorded calcium carbonate 600 mg PO BID #180 tabs 01/02/24 doxycycline monohydrate 100 mg 100 mg PO BID #12 tabs 01/10/25 tablet tramadol 50 mg tablet 25 mg (1/2 x 50 mg) PO Q6H PRN 01/10/25 Pain, Severe (Pain Scale 7-10) #14 tabs morphine 15 mg immediate release 15 mg PO Q8H PRN pain (scale score 01/23/25 tablet 7-10) #9 tabs Allergies Allergy/AdvReac Type Severity Reaction Status Date / Time Sulfa (Sulfonamide Allergy Intermediate RASH/ITCH Verified 01/25/25 09:03 Antibiotics) sulfamethoxazole Allergy Intermediate HIVES Verified 01/25/25 09:03 [From BACTRIM] trimethoprim [From BACTRIM] Allergy Intermediate HIVES Verified 01/25/25 09:03 oxycodone [From Percocet] Allergy Unknown Unknown Verified 01/25/25 09:03 penicillin V Allergy Unknown Unknown Verified 01/25/25 09:03 Review of Systems 2 Review of Systems: Constitutional: No fever, chills, fatigue, night sweats, weight changes ENT/Mouth: No ear pain, hearing loss, nasal congestion, sinus pain, rhinorrhea, sore throat Eyes: No eye pain, swelling, redness, vision changes, discharge Cardio: No chest pain, palpitations, PARRISH, orthopnea, peripheral edema Pulm: No SOB, cough, sputum, wheezing, dyspnea, hemoptysis GI: No nausea, vomiting, hematemesis, abdominal pain, diarrhea, constipation, hematochezia, melena : No irregular bleeding, dysuria, frequency, urgency, hesitancy, hematuria, flank pain, urinary flow changes, urinary incontinence or retention MSK: No back pain, neck pain, joint pain, myalgias, +RLE pain/redness Skin: No lesions, rashes Neuro: No weakness, numbness, paresthesias, LOC, dizziness, headache Psych: No anxiety/panic, depression, SI/HI, AH/VH All other systems reviewed and are negative. [facility] Past Medical History Attestation statement: The following information was validated with the patient. Source: old records reviewed, obtained from family (daughter) and nursing notes reviewed Medical History Hydronephrosis of right kidney Hypertension Diabetes mellitus Gram-negative bacteremia Septic shock UTI (urinary tract infection) Calculus of kidney Osteoporosis Surgical History History of surgery Hx of hemorrhoidectomy H/O colonoscopy Hx of cystoscopy Hx of lithotripsy Hx of hysterectomy Family History Family History Father Heart problem Mother No problems noted. 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 Skin: +see photo of right morris below. nonblanchable raised areas of erythema. no sloughing. two healing wounds, no active purulent drainage or foul odor. no warmth. ttp. 2+ dp/pt pulse intact. Head: Normocephalic, atraumatic. EENT: Hearing is intact b/l. Conjunctiva clear. Sclera is anicteric. PERRLA. EOM intact. Moist mucous membranes.? Neck: Supple without LAD Cardiac: Chest wall symmetric. RRR. Lungs: Normal respiratory effort without accessory muscle use. CTA bilaterally. Abdomen: Soft, non-tender, non-distended. No rebound tenderness or guarding. Positive BS x4. Back: No midline spinous or paraspinal tenderness. No step off deformity. Ext: +see photo of right morris above Neuro: AOx3. Normal speech. Ambulating with steady gait. Course Course Course Narrative: 1356 -- CBC without leukocytosis or left shift. No anemia. H&H stable. Chemistry without acute electrolyte abnormality requiring intervention. BUN slightly elevated to 23 with normal creatinine. Random glucose 306, no anion gap. Liver function at baseline. CRP appears chronically elevated, improved from priors. ESR wnl. lactic appears to be chronically elevated, likely secondary to metformin. I do not have suspicion for sepsis at this time. xr right tib/fib without evidence of osteomyelitis. > patient's physical exam is more consistent with inflammatory process/vasculitis. I do not have concern for cellulitis at this time. I did discuss case with my attending Dr. Dawson who has reviewed images of RLE (see above). He agrees that presentation is more consistent with a vasculitis/ inflammatory process. Standard of treatment includes prednisone however patient is diabetic, sugars are 300 today. Given hyperglycemia, will hold on steroids at this time. Plan for symptomatic treatment. > 1 L IV fluids and insulin ordered in the ED today. Plan to recheck glucose. morphine provided for pain. Anticipate discharge home with PCP follow up as vasculitis will likely self-resolve. 1500 -- repeat POC 133. i feel patient is stable for discharge at this time. will discontinue her tramadol. she reports improvement in pain w/ morphine in ED. will d/c home with PO morphine. advised outpatient follow up. advised close monitoring of blood sugar. Patient has remained stable throughout ED visit today. Discussed worrisome signs and symptoms and when to return to the ED. All questions answered at this time. Patient is agreeable with disposition and stable for discharge. her daughter will be driving her home today. Medications Administered Discontinued Medications Generic Name Dose Route Start Last Admin Trade Name Felipa PRN Reason Stop Dose Admin Sodium Chloride 1,000 mls @ 999 mls/hr 01/23/25 13:00 01/23/25 14:28 Ns IV 01/23/25 14:00 Infused .Q1H1M [place] Infusion Insulin Human Regular 5 unit 01/23/25 12:54 01/23/25 13:14 Insulin Regular, Human 100 Unit/Ml 10 Ml Vial IVPUSH 01/23/25 12:55 5 unit ONCE ONE Administration Morphine Sulfate 2 mg 01/23/25 12:55 01/23/25 13:11 Morphine Sulfate 2 Mg/Ml Cartridge IVPUSH 01/23/25 12:56 2 mg ONCE ONE Administration Protocol Medical Decision Making Medical Decision Making [facility] Narrative: 84-year-old female with pmhx significant for hypertension, diabetes, osteoporosis presents to the ED today for evaluation of worsening right lower extremity pain and redness x1 week. she is well appearing, afebrile. initially tachycardic which has resolved. please refer to above physical exam section for findings. Differential diagnosis includes vasculitis, contact/atopic/eczematous dermatitis. area does not appear to be cellulitic in nature. Low supicion for osteomyelitis. History and exam findings not consistent with lyme/tick bourne illness, herpes zoster/simplex, scabies, HFM,? dangerous etiologies of rash such as SJS/TEN, or secondary dangerous causes such as petechial rashes from thrombocytopenia or rickettsial infections.? Plan for screening labs, inflammatory markers, routine Gram stain/culture, x- ray, lactic/blood cultures, re-evaluation Differential Diagnosis Differential Diagnoses: The differential diagnosis associated with the presentation includes as above. Admission/Observation not indicated. Lab Data [facility] Lab Attestation statement: I reviewed the patient's lab results. as above. 01/23/25 11:48 01/23/25 11:48 Labs: Lab Results 01/23/25 01/23/25 01/23/25 Range/Units 11:48 14:09 14:58 WBC 10.5 (4.8-10.8) X10*3/uL RBC 4.40 (4.20-5.50) X10*6/uL Hgb 13.5 (12.0-16.0) g/dl Hct 39.3 (37.0-47.0) % MCV 89.3 (80.0-98.0) fL MCH 30.7 (27.0-33.0) pg MCHC 34.4 (31.0-35.0) g/dl RDW 13.3 (11.0-16.0) % Plt Count 309 D (160-400) X10*3/uL MPV 9.5 (9.4-12.3) fL Immature Gran % (Auto) 0.6 H (0.0-0.4) % Neut % (Auto) 67.3 (45-73) % Lymph % (Auto) 21.0 (20-40) % [place] % (Auto) 7.0 (2-11) % Eos % (Auto) 3.2 (0-4) % Baso % (Auto) 0.9 (0-2) % Lymph # (Auto) 2.2 (1.2-4.9) X10*3/uL [place] # (Auto) 0.7 (0.1-1.2) X10*3/uL Eos # (Auto) 0.3 (0.0-0.4) X10*3/uL Baso # (Auto) 0.1 (0.0-0.2) X10*3/uL Abs Immat Gran (auto) 0.06 H (0.00-0.03) X10*3/uL Absolute Neuts (auto) 7.1 (2.0-8.3) x10*3/uL Absolute Nucleated RBC 0.000 (0.0-0.012) X10*3/uL Nucleated RBC % (auto) 0.0 (0.0-0.2) /100WBC ESR 13 (0-20) MM/HR Sodium 138 (135-145) mmol/L Potassium 3.7 (3.3-5.1) mmol/L Chloride 105 (96-108) mmol/L Carbon Dioxide 23 (22-29) mmol/L Anion Gap 14 (12-20) BUN 23 H (9-16) mg/dL Creatinine 0.97 (0.5-1.4) mg/dL Estim Creat Clear Calc 43.5 Estimated GFR 55 POC Glucose 133 H (60-115) mg/dL Random Glucose 306 H (60-115) mg/dL Lactic Acid 3.0 H* (0.5-2.0) mmol/L Lactic Acid F/U @ 2Hr 1.8 (0.5-2.0) mmol/L Calcium 9.5 D (8.4-10.2) mg/dL Magnesium 1.7 (1.6-2.6) mg/dL Total Bilirubin 0.3 (0.0-1.0) mg/dL AST 16 (5-31) U/L ALT 20 (0-31) U/L Alkaline Phosphatase 103 (39-117) U/L C-Reactive Protein 0.52 H (< or = 0.50) mg/dL Total Protein 7.0 (6.5-8.0) g/dL Albumin 3.9 (3.5-5.0) g/dL Independent Interpretation I performed an independent interpretation of an: Plain X-Ray Interpretation: xr right tib/ fib without osteoyelitis Radiology Impression Discussion of test interpretation with radiology: I have reviewed the radiologist's reading. Radiologist Impression: Date of Service: 01/23/25 Procedure(s): XR tibia fibula RT 2V Accession Number(s): [id number] cc: Louie Narayanan MD; Goldie Otero~ EXAMINATION: XR TIBIA AND FIBULA, RIGHT CLINICAL INFORMATION: overlying wound, DM, r/o osteo COMPARISON: January 09, 2025 TECHNIQUE: AP and lateral views of the right tibia and fibula were obtained. FINDINGS: There is no focal osteopenia or cortical erosions. There is no periosteal new bone formation. There is no soft tissue gas. XR/XR tibia fibula RT 2V IMPRESSION: Unremarkable x-rays of the right lower leg. MRI is more sensitive to detect osteomyelitis. Electronically signed by: Lloyd Rajan MD 01/23/2025 12:28 PM EDT Procedure(s): ECG 12 lead EKG Accession Number(s): [id number] cc: Goldie Otero~ Test Reason : TACHYCARDIC Blood Pressure : */* mmHG Vent. Rate : 105 BPM Atrial Rate : 105 BPM P-R Int : 166 ms QRS Dur : 82 ms QT Int : 334 ms P-R-T Axes : 59 -19 27 degrees QTcB Int : 441 ms Sinus tachycardia with frequent Premature ventricular complexes Otherwise normal ECG When compared with ECG of 05-Aug-2024 15:59, Premature ventricular complexes are now Present Referred By: Goldie Otero Electronically Signed By: BRANDON HUTSON Critical Care Time Critical Care Time Critical Care Time: Yes Total Critical Care Time: 33 Attestation: Critical care time in the amount of 33 minutes has been provided to the patient in terms of direct patient care, frequent reevaluation on IV morphine and insulin, review and interpretation of medical data and results, and management of potentially life-threatening conditions. This is all outside of any medical procedures. Discharge Plan Discharge Clinical Impression: Vasculitis Patient Disposition: Home, Self-Care Additional Instructions: You were evaluated in the ED today for worsening area of redness to your right lower leg. Your blood work today is reassuring. The x-ray of your right lower leg does not demonstrate infection of the bone. As discussed, your physical exam is most consistent with vasculitis (inflammatory process) rather than an active infection. Treatment for this is with prednisone however you are diabetic with elevated sugars so we will hold on steroids today. You may complete your current course of doxycycline (antibiotic). I am sending morphine to your pharmacy for pain control. Please discontinue use of tramadol. DO NOT TAKE THESE MEDICATIONS TOGETHER. Please follow up with your primary care provider as scheduled next week. Please monitor your sugars at home. Return with any new or worsening symptoms. In the case of an emergency call 911. Prescriptions: New morphine 15 mg tablet 15 mg PO Q8H PRN (Reason: pain (scale score 7-10)) Qty: 9 0RF Rx Instructions: Partial Fill upon patient request. No Action calcium carbonate 600 mg calcium (1,500 mg) tablet 600 mg PO BID Qty: 180 3RF Eliquis 5 mg tablet 5 mg PO BID cholecalciferol (vitamin D3) [Vitamin D3] 50 mcg (2,000 unit) capsule 50 mcg PO DAILY doxycycline monohydrate 100 mg tablet 100 mg PO BID Qty: 12 0RF tramadol 50 mg Tablet 25 mg PO Q6H PRN (Reason: Pain, Severe (Pain Scale 7-10)) Qty: 14 0RF amlodipine 5 mg tablet 5 mg PO DAILY valsartan 320 mg tablet 320 mg PO DAILY hydralazine 50 mg tablet 50 mg PO BIDWM glipizide 10 mg tablet 10 mg PO DAILY Trulicity 4.5 mg/0.5 mL pen injector 4.5 mg subcut MO@0900 aspirin [Adult Low Dose Aspirin] 81 mg tablet,delayed release (DR/EC) 81 mg PO DAILY@1200 metformin 1,000 mg tablet 1,000 mg PO BID Lantus Solostar U-100 Insulin 100 unit/mL (3 mL) insulin pen 16 unit subcut BEDTIME furosemide 40 mg tablet 40 mg PO BID atorvastatin 80 mg tablet 80 mg PO BEDTIME (DME) lancets [TRUEplus Lancets] 33 gauge misc See Rx Instructions topical TID Qty: 100 Rx Instructions: As directed (DME) OneTouch Ultra Test Strip See Rx Instructions .ROUTE TID Qty: 10 Rx Instructions: As directed (DME) pen needle, diabetic [UltiCare Pen Needle] 31 gauge x 5/16 needle See Rx Instructions subcut DAILY Qty: 1200 Rx Instructions: As directed Referrals: Louie Narayanan MD [Primary Care Provider] - Discharge Date/Time: 01/23/25 15:27 Print Language: German
[2025-01-23 11:25] VITALS: BP 155/75; PULSE 120; RESP 18; TEMP 36.9; O2SAT 97; BMI 26.3
[2025-01-23 11:33] VITALS: RESP 18; TEMP 37; O2SAT 95
[2025-01-23 11:57] LABS: MANUAL DIFF FLAG NO
[2025-01-23 12:04] LABS: Basophils Absolute Auto 0.1 X10*3/uL (0.0-0.2); Basophils Percent Auto 0.9 % (0-2); Eosinophils Absolute Auto 0.3 X10*3/uL (0.0-0.4); Eosinophils Percent Auto 3.2 % (0-4); Hematocrit 39.3 % (37.0-47.0); Hemoglobin 13.5 g/dl (12.0-16.0); Imm Gran Abs Auto 0.06 X10*3/uL (0.00-0.03); Imm Gran Pct Auto 0.6 % (0.0-0.4); Lymphocytes Absolute Auto 2.2 X10*3/uL (1.2-4.9); Mean Corpuscular HGB Conc 34.4 g/dl (31.0-35.0); Mean Corpuscular Hemoglobin 30.7 pg (27.0-33.0); Mean Corpuscular Volume 89.3 fL (80.0-98.0); Mean Platelet Volume 9.5 fL (9.4-12.3); Monocytes Absolute Auto 0.7 X10*3/uL (0.1-1.2); Neutrophils Absolute Auto 7.1 x10*3/uL (2.0-8.3); Neutrophils Percent Auto 67.3 % (45-73); Platelet Count 309 X10*3/uL (160-400); Red Cell Distribution Width 13.3 % (11.0-16.0); White Blood Count 10.5 X10*3/uL (4.8-10.8)
--- NOTE | 2025-01-23 12:07 | ECG_ITS ---
Test Reason : TACHYCARDIC Blood Pressure : */* mmHG Vent. Rate : 105 BPM Atrial Rate : 105 BPM P-R Int : 166 ms QRS Dur : 82 ms QT Int : 334 ms P-R-T Axes : 59 -19 27 degrees QTcB Int : 441 ms Sinus tachycardia with frequent Premature ventricular complexes Otherwise normal ECG When compared with ECG of 05-Aug-2024 15:59, Premature ventricular complexes are now Present Referred By: Goldie Otero Electronically Signed By: BRANDON HUTSON
[2025-01-23 12:25] LABS: Alanine Aminotransferase 20 U/L (0-31); Albumin Level 3.9 g/dL (3.5-5.0); Anion Gap 14 (12-20); Aspartate Amino Transferase 16 U/L (5-31); Bilirubin Total 0.3 mg/dL (0.0-1.0); Blood Urea Nitrogen 23 mg/dL (9-16); Calcium 9.5 mg/dL (8.4-10.2); Carbon Dioxide 23 mmol/L (22-29); Chloride 105 mmol/L (96-108); Creatinine Clr Calc Pharmacy 43.5; Estimated Glomerular Filt Rate 55; Glucose Random 306 mg/dL (60-115); Magnesium 1.7 mg/dL (1.6-2.6); Potassium 3.7 mmol/L (3.3-5.1); Sodium 138 mmol/L (135-145)
--- OUTSIDE RECORDS SUMMARY | 2025-01-23 12:28 | XMS_ITS | Clinical Summary ---
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 Active amLODIPine (Norvasc) 5 MG tablet Take 5 mg by mouth at bedtime. 023 Active D3 Super Strength 50 MCG (2000 UT) capsule Take 50 mcg by mouth in the morning. Active valsartan (Diovan) 160 MG tablet TAKE 1 TABLET BY MOUTH EVERY MORNING 30 tablet 6 023 Active loratadine (Claritin) 10 MG tablet TAKE 1 TABLET BY MOUTH EVERY DAY 30 tablet 6 024 Active Trulicity 4.5 MG/0.5ML solution pen-injectorI ndications:Ty pe 2 diabetes mellitus without complication, with long-term current use of insulin ([facility]) INJECT ONE PEN (= 4.5MG) SUBCUTANEOUSLY ONCE A WEEK DIRECTED 2 mL 11 024 Active Aspirin Adult Low Strength 81 MG EC tablet TAKE 1 TABLET BY MOUTH EVERY EVENING 90 tablet 3 024 Active TRUEplus Lancets 33G miscIndicatio ns:Type 2 diabetes mellitus without complication, with long-term current use of insulin ([facility]) TEST BLOOD SUGAR THREE TIMES DAILY DIRECTED 100 each 11 Active estradiol (Estrace) 0.1 MG/GM vaginal cream Insert 1 g into the vagina Once per day. 1g vaginally x 14d, then twice weekly thereafter 42.5 g 2024 Active Easy Touch Pen Orgas 31G X 8 MM misc USE DIRECTED ONCE DAILY 100 each 1 Active insulin glargine (Lantus SoloStar) 100 UNIT/ML penIndication s:Type 2 diabetes mellitus without complication, with long-term current use of insulin ([facility]) Inject 16 Units under the skin at bedtime. 15 mL 3 Active miconazole (Micatin) 2 % creamIndicati ons:Tinea Apply topically 2 times daily. 56 g 1 Active glipiZIDE (Glucotrol) 10 MG tablet TAKE 1 TABLET BY MOUTH EVERY MORNING BEFORE A MEAL 90 tablet 1 Active atorvastatin (Lipitor) 80 MG tablet TAKE 1 TABLET BY MOUTH AT BEDTIME 30 tablet 6 Active OneTouch Ultra Test test stripIndicati ons:Type 2 diabetes mellitus without complication, with long-term current use of insulin ([facility]) TEST BLOOD SUGAR THREE TIMES DAILY 100 strip 3 Active bacitracin-po lymyxin b (Polysporin) ointment Apply topically 2 times daily. Apply to affected area daily 30 g Active acetaminophen (Tylenol) 500 MG tablet Take 2 tablets (1,000 mg) by mouth every 6 (six) hours if needed for moderate pain or fever for up to 25 doses. 50 tablet Active metFORMIN (Glucophage) 1000 MG tablet TAKE 1 TABLET BY MOUTH TWICE DAILY IN THE MORNING AND IN THE EVENING WITH FOOD 180 tablet Active doxycycline (Adoxa) 100 MG tabletIndicat ions:Open wound of right lower leg, subsequent encounter Take 1 tablet (100 mg) by mouth 2 times daily for 10 days. Take with a full glass of water and do not lie down for at least 30 minutes after 20 tablet 025 2024 Active econazole nitrate 1 % creamIndicati ons:Intertrig o Apply topically 2 times daily. 85 g 025 Active hydrocortison e 2.5 % creamIndicati ons:Intertrig o Apply topically 2 times daily. 28 g 025 Active triamcinolone (Kenalog) 0.1 % ointmentIndic ations:Allerg ic contact dermatitis due to adhesives Apply topically 2 times daily. 30 g 023 2024 Discontinued(T herapy completed) metFORMIN (Glucophage) 1000 MG tablet TAKE 1 TABLET BY MOUTH TWICE DAILY IN THE MORNING AND IN THE EVENING WITH FOOD 180 tablet 024 2024 Discontinued econazole nitrate 1 % creamIndicati ons:Intertrig o Apply topically 2 times daily. 85 g 025 2024 Discontinued(R eorder (will not trigger notification to Pharmacy)) hydrocortison e 2.5 % creamIndicati ons:Intertrig o Apply topically 2 times daily. 28 g 025 2024 Discontinued(R eorder (will not trigger notification to Pharmacy)) cephalexin (Keflex) 500 MG capsule Take 1 capsule (500 mg) by mouth 4 times daily for 10 days. 40 capsule 025 2024 Active Problems Problem Noted Date Diagnosed Date Open wound of right lower leg 01/17/2025 Assessment & Plan (01/17/2025 10:02 AM EDT): Images from the original note were not included. Patient here for a sick visit for a follow up regarding a recent diagnosis of cellulitis of right leg She was recently admitted to [facility] 01/09-01/10 after she presented with cellulitis of anterior of the right lower extremity. 3 weeks prior to her admission she fell and had a cut to the front of right leg which subsequent became infected. She was prescibed 7 ddays of keflex on 12/17, and when seen again on 01/02 when she was given additional Abx for 10 days. Upon admission to hospital she reported that area was still red and painful, and was admitted for Cellulitis failing outpatient Abx.. There was no fever,normal WBC, normal inflammatory markers, she was treated with IV Vanco and Zosyn in the ED, continued on IV doxy overnight and was transitioned to oral doxycyline the morning of discharge. Of note pt had been referred to wound clinic but no showed. Today on exam, her skin is not hot, the wounds seem to be healing, and patient tells me the redness and swelling have significantly improved since she was discharged from Hospital Pt tells me she is already under the care of Vascular. And has an upcoming appointment, will obtain records, I suspect there is a component of vascular insuficiency Plan: Extend Doxy BID x 10 days No open wound, so for now no need for Wound clinic referral. Will schedule a d/u with derm as well Follow up with RN in 1 week and with me in 2 weeks Dental plaque 12/21/2024 Periodontal disease 12/21/2024 Missing [...] Plan (12/01/2023 10:09 AM EDT): Mammogram: Mammo 1/15/2024Normal. Pap Smear: -pap smear wnl 2003, 2004 [...] Assessment & Plan (09/01/2023 9:29 AM EST): [facility] health care (V70.0). Mammogram: Mammo 08/31/2021 Normal. [...] neoplastic process. Diverticular disease 08/21/2013 Osteoporosis 08/21/2013 Assessment & Plan (01/17/2025 9:46 AM EDT): Under the care of endocrinology Last seen: 11/13/2024 They mentioned in their note: her history of osteoporosis treated with 3 doses of intravenous Reclast in the past. Last DEXA 2018 showed osteopenia. . They mwilliam that her secondary workup was completed and was negative. Repeat DEXA showed osteoporosis in the femoral neck. Urine NTX is suppressed Their Plan is to continue to follow off pharmacologic therapy. If urine NTX is rising, they would consider giving another dose of intravenous Reclast or of NTX is stable may consider to to continue observe Secondary hyperparathyroidism 08/21/2013 Tubular adenoma of colon 08/21/2013 Open-angle glaucoma 05/30/2012 Assessment & Plan (09/01/2023 9:28 AM EST): Diagnosed by [facility]. Last seen by [facility] 08/30/2023 Diabetes mellitus, type II 05/11/2012 Assessment & Plan (01/17/2025 9:47 AM EDT): Pt is here for a f/u DM improving She is on a regimen of: Metformin XR 500 mg 2 tabs po BID, Glipizide 10 mg po daily ,Lantus 14 units sc q pm and Trulicity 4.5 mg q week She is on med boxes Hgb A1c 01/17/2025 : 8.9 from 9.3 from 13.7 from 9.1 from 8.3 Eye exam was last done on: 01/21/[address] Cotton (hotel desk clerk) measured her IOP and was stable so he recommended to DC the eye drops she was using for a dx of Primary open angle glaucoma Microalbumin checked on : 08/26/2021 was: 4.5 Pt is not on an TANIYA inhibitor due to COUGH. She is on an ARB Valsartan 160 mg po daily . Foot check risk of zero Pt reports compliance with Asa 81 mg po daily Plan: continue current regimen for now 3 months f/u Pt advised to: adhere to diabetic diet check your blood sugars regularly check your feet on a daily basis Assessment & Plan (10/09/2024 3:45 PM EST): [...] last done on: 01/21/[address] Cotton (hotel desk clerk) measured her IOP and was stable so [...] Pt tells me she was vacationing in [place] and while there she was not following a diabetic diet. When reviewing her glucometer it was evident the time she was in [place] because her blood sugars were consistently high and now that she is back blood sugars have normalized Eye exam was last done on: 01/21/[address] Cotton (hotel desk clerk) measured her IOP and was stable so [...] compliance with diet and meds while in [place] 3 months f/u Pt advised to: adhere [...] last done on: 01/21/[address] Cotton (hotel desk clerk) measured her IOP and was stable so [...] last done on: 01/21/[address] Cotton (hotel desk clerk) measured her IOP and was stable so [...] last done on: 01/21/[address] Cotton (hotel desk clerk) measured her IOP and was stable so [...] last done on: 01/21/[address] Cotton (hotel desk clerk) measured her IOP and was stable so [...] note pt had a cardiac cath at [facility] on 05/20/2009 There was NO angiographic evidence of CAD. seen in the past at [facility]. PREVIOUSLY ADDRESSED: THE INFORMATION BELOW HAS BEEN COPIED, PASTED AND UPDATED FROM PREVIOUS NOTES. Chest discomfort (R07.89). Resolved, pt ended up having an outpt stress test 05/23/2019 that was negative for ischemia. Of note pt had a cardiac cath 2008 at [facility] that was unremarkable. 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 Pt with a Hx. of ? Paget's disease of the bone, evaluated in the past by an sql data analyst (Dr Banuelos) who treated her initially with Actonel but she could not tolerate subsequently she was given an infusion of Reclast and remains on Vitamin D pt was lost for f/u with Dr Banuelos. Last visit we scheduled a f/u appointment. Pt was seen by a different Dye Colorist Formulator (Dr Ferrer)who review previous notes from Dr Banuelos and new bone scan, and lab data. She was seen on 11/08/2012nd based on his impression he DID NOT think pt had Paget's disease. She was last seen by [facility] Endocrinology on 02/16/2013 (Dr Ferrer) He diagnosed [...] note pt had a cardiac cath at [facility] on 05/20/2009 There was NO angiographic evidence of CAD. seen in the past at [facility]. PREVIOUSLY ADDRESSED: THE INFORMATION BELOW HAS BEEN COPIED, PASTED AND UPDATED FROM PREVIOUS NOTES. Chest discomfort (R07.89). Resolved, pt ended up having an outpt stress test 05/23/2019 that was negative for ischemia. Of note pt had a cardiac cath 2008 at [facility] that was unremarkable. 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 Pt with a Hx. of ? Paget's disease of the bone, evaluated in the past by an sql data analyst (Dr Banuelos) who treated her initially with Actonel but she could not tolerate subsequently she was given an infusion of Reclast and remains on Vitamin D pt was lost for f/u with Dr Banuelos. Last visit we scheduled a f/u appointment. Pt was seen by a different Dye Colorist Formulator (Dr Ferrer)who review previous notes from Dr Banuelos and new bone scan, and lab data. She was seen on 11/08/2012nd based on his impression he DID NOT think pt had Paget's disease. She was last seen by [facility] Endocrinology on 02/16/2013 (Dr Ferrer) He diagnosed [...] note pt had a cardiac cath at [facility] on 05/20/2009 There was NO angiographic evidence of CAD. seen in the past at [facility]. PREVIOUSLY ADDRESSED: THE INFORMATION BELOW HAS BEEN COPIED, PASTED AND UPDATED FROM PREVIOUS NOTES. Chest discomfort (R07.89). Resolved, pt ended up having an outpt stress test 05/23/2019 that was negative for ischemia. Of note pt had a cardiac cath 2008 at [facility] that was unremarkable. 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 Pt with a Hx. of ? Paget's disease of the bone, evaluated in the past by an sql data analyst (Dr Banuelos) who treated her initially with Actonel but she could not tolerate subsequently she was given an infusion of Reclast and remains on Vitamin D pt was lost for f/u with Dr Banuelos. Last visit we scheduled a f/u appointment. Pt was seen by a different Dye Colorist Formulator (Dr Ferrer)who review previous notes from Dr Banuelos and new bone scan, and lab data. She was seen on 11/08/2012nd based on his impression he DID NOT think pt had Paget's disease. She was last seen by [facility] Endocrinology on 02/16/2013 (Dr Ferrer) He diagnosed [...] note pt had a cardiac cath at [facility] on 05/20/2009 There was NO angiographic evidence of CAD. seen in the past at [facility]. PREVIOUSLY ADDRESSED: THE INFORMATION BELOW HAS BEEN COPIED, PASTED AND UPDATED FROM PREVIOUS NOTES. Chest discomfort (R07.89). Resolved, pt ended up having an outpt stress test 05/23/2019 that was negative for ischemia. Of note pt had a cardiac cath 2009 at [facility] that was unremarkable. 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 Pt with a Hx. of ? Paget's disease of the bone, evaluated in the past by an sql data analyst (Dr Banuelos) who treated her initially with Actonel but she could not tolerate subsequently she was given an infusion of Reclast and remains on Vitamin D pt was lost for f/u with Dr Banuelos. Last visit we scheduled a f/u appointment. Pt was seen by a different Dye Colorist Formulator (Dr Ferrer)who review previous notes from Dr Banuelos and new bone scan, and lab data. She was seen on 11/08/2012 based on his impression he DID NOT think pt had Paget's disease. She was last seen by [facility] Endocrinology on 02/16/2013 (Dr Ferrer) He diagnosed [...] note pt had a cardiac cath at [facility] on 05/20/2009 There was NO angiographic evidence of CAD. seen in the past at [facility]. PREVIOUSLY ADDRESSED: THE INFORMATION BELOW [...] pt had a cardiac cath 2008 at [facility] that was unremarkable. 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 Examination suggestive of this Plan: Nizoral shampoo, Neutrogenal [place] tar shampoo extra strength Referral to Dr [...] moderate stage (365.10), Chronic. Recently diagnosed by [facility]. last seen 03/10/2012. They recommended to continue to follow with dr. 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 Pt with a Hx. of ? Paget's disease of the bone, evaluated in the past by an sql data analyst (Dr Banuelos) who treated her initially with Actonel but she could not tolerate subsequently she was given an infusion of Reclast and remains on Vitamin D pt was lost for f/u with Dr Banuelos. Last visit we scheduled a f/u appointment. Pt was seen by a different Dye Colorist Formulator (Dr Ferrer)who review previous notes from Dr Banuelos and new bone scan, and lab data. She was seen on 11/08/2012nd based on his impression he DID NOT think pt had Paget's disease. She was last seen by [facility] Endocrinology on 02/16/2013 (Dr Ferrer) He diagnosed [...] Normal Pap Smear: -pap smear wnl 2002, 2004 and 2005 with h/o hysterectomy and no abnormal paps, , no need for further pap screening Colonoscopy: 03/09/2019 showed a tubular adenoma h/o tubular adenoma 2005, as well Vaccines: Flu shot: Pneumovax, 09/12/2014 [...] LDL-C. Ciaran NATHAN et al. HITESH. 2013;310(19): 8937-7176 (http://education.B[employer]day Slam/faq/MPZ082) Chol/HDLC Ratio <5.0 (calc) 3.6 3.0 5.1??High?? [...] Encounters Date Type Department Care Team Description 01/23/2025 Orders Only GENERIC EXTERNAL DATA DEPARTMENT Provider, Generic External Data 01/17/2025 10:00 AM EDT Office Visit [facility] [address] [place] [id number] Louie Gutierrez MD Open wound of right lower leg, subsequent encounter (Primary Dx); Type 2 diabetes mellitus without complication, with long-term current use of insulin ([facility]); Age-related osteoporosis without current pathological fracture; Intertrigo; Rash 01/17/2025 Telephone [facility] [place] [address] Louie Gutierrez MD fyi 01/17/2025 Travel 01/17/2025 Telephone [facility] [address] [place] [phone] Louie Gutierrez MD CHART PREP 01/09/2025 Orders Only [facility] External Provider, [facility] 01/02/2025 2:30 PM EDT Office Visit [address] [id number] Nelson Mead MD Cellulitis, unspecified cellulitis site (Primary Dx) 01/02/2025 Travel 01/02/2025 Telephone [facility] [address] [place] [phone] Louie Gutierrez MD Nurse Triage 01/01/[address] [address] Dena Christianson MD 12/21/2024 9:00 AM EDT Office Visit [facility] [address] [place] [phone] Jennifer Fowler Dental plaque (Primary Dx); Periodontal disease; Missing teeth, acquired; Dental calculus 12/12/2024 8:40 AM EDT Office Visit [facility] [address] [place] [phone] Kolton Lloyd MD Injury of right lower extremity, initial encounter (Primary Dx); Abrasion of right lower extremity, initial encounter; Right leg pain; Acute right ankle pain; Hypertension, unspecified type; Encounter for immunization 12/12/2024 Travel 11/25/2024 Refill [facility] [address] [place] [address] Louie Gutierrez MD Type 2 diabetes mellitus without complication, with long-term current use of insulin ([facility]) 11/22/2024 Refill [facility] [address] [facility] [place] [address] Louie Gutierrez MD 11/04/2024 Refill [facility] [address] [place] [address] Roro Reynolds DO 11/02/2024 Orders Only [facility] External Provider, [facility] 10/26/2024 11:00 AM EST Office Visit [facility] [address] [place] [address] Amado Lynch MD Intertrigo 10/26/2024 Travel 10/26/2024 Telephone [facility] [address] [place] [address] Louie Gutierrez MD 10/25/2024 Telephone [facility] [address] [place] [address] Louei Gutierrez MD telephone call from Last 3 Months Immunizations Immunization Administration Dates Next Due Influenza High-dose Quadriva [...] Reading Time Taken Comments Blood Pressure 144/82 01/17/2025 10:05 AM EDT Pulse 85 01/17/2025 9:27 AM EDT Temperature 36.8 ??C (98.2 ??F) 01/17/2025 9:27 AM ED T Respiratory Rate 20 01/17/2025 9:27 AM EDT Oxygen Saturation 99% 01/17/2025 9:27 AM EDT Inhaled Oxygen Concentration - - Weight 71.9 kg (158 lb 9.6 oz) 01/17/2025 9:27 A M EDT Height 162.6 cm (5' 4 ) 01/17/2025 9:27 AM EDT Body Mass Index 27.22 01/17/2025 9:27 AM EDT Plan of Treatment Upcoming Encounters Date Type Department Care Team (Late st Contact Info) Description 01/25/2025 10:00 AM EDT Clinical Support [facility] [address] [place] [address] 01/31/2025 11:00 AM EDT Office Visit [facility] [address] [place] [address] Louie Gutierrez MD [address] [place] [address] 07/09/2025 10:00 AM EST Office Visit [facility] AD[facility] [address] [place] [address] Jennifer Fowler [address] [place] [address] Health Maintenance Due Date Last Done Comments [...] 07/02/2022, Additional history exists Diabetes: Hemoglobin A1C 04/19/2025 025, 10/09/2024, 05/31/2024, Additional history exists Dental X-Ray: Bitewings 05/08/2025 05/07/20 24, 12/01/2023, 09/15/2023, Additional history exists Depression Screening 05/31/2025 05/31/2024, 05/31/20 Dental Prophylaxis 06/24/2025 12/21/2024, 0 05/07/2024, 09/15/2023, Additional history exists Mammogram 09/13/2025 09/13/2024, 08/22, 09/02/2022, Additional history exists Alcohol/Substance Use Screening 10/09/2025 10/09/2024 SDOH Screening 10/09/2025 10/09/2024 Diabetes: Urine Protein Screening 10/26/2025 10/26/2024, 08/26/2021, 11/10/2020, Additional history exists Tobacco Screening 01/17/2026 01/17/2025 Dental X-Ray: Full Mouth 05/08/2027 05/07/2024, 09/2020 [...] patient's age to complete this topic Meningococcal B Vaccine Aged Out No l onger eligible based on patient's age to complete [...] Procedure Name Priority Date/Time Associated Diagnosis Comments LACTIC ACID Routine 01/23/2025 11:48 AM EDT MAGNESIUM Routine 01/23/2025 11:48 AM EDT COMPREHENSIVE METABOLIC PANEL Routine 01/23/2025 11:48 AM EDT CBC WITH AUTO DIFFERENTIAL Routine 01/23/2025 11:48 AM EDT WOUND CARE Routine 01/17/2025 10:19 AM EDT Open wound of right lower leg, subsequent encounter POCT GLYCATED HEMOGLOBIN, TOTAL Routine 01/17/2025 9:45 AM EDT Type 2 diabetes mellitus without complication, with long-term current use of insulin ([facility]) POCT GLUCOSE Routine 01/17/2025 9:40 AM EDT Type 2 diabetes mellitus without complication, with long-term current use of insulin ([facility]) US VENOUS DUPLEX LE RT Routine 4:15 PM EDT B TYPE NATRIURETIC PEPTIDE (BNP) Routine 01/09/2025 4:02 PM EDT CBC WITH AUTO DIFFERENTIAL Routine 01/09/2025 4:02 PM EDT BASIC METABOLIC PANEL Routine 01/09/2025 4:02 PM EDT HEPATIC FUNCTION PANEL Routine 4:02 PM EDT XR TIBIA FIBULA 2 VIEWS RIGHT Routine 01/09/2025 3:42 PM EDT ORAL HYGIENE INSTRUCTIONS Routine 12/21/2024 9:00 AM [...] complication, with long-term current use of insulin ([facility]) BI MAMMOGRAM SCREENING TOMOSYNTHESIS BILATERAL Routine 09/13/2024 8:38 AM EST INTRAORAL - COMPLETE SERIES OF RADIOGRAPHIC IMAGES Routine 05/07/2024 8:00 AM EDT PERIODIC ORAL EVALUATION - ESTABLISHED PATIENT Routine 05/07/2024 8:00 AM EDT LIPID PANEL WITH REFLEX TO DIRECT LDL Routine 02/11/2023 9:28 AM EDT Type 2 diabetes mellitus without complication, with long-term current use of insulin ([facility]) from Last 3 Months or Most Recently Relevant to Health Maintenance Results * (ABNORMAL) CBC auto differential (01/23/2025 11:48 AM EDT) Only the most recent of2 resultswithin the time period is included. White Blood Count 10.5 4.8 - 10.8 X10*3/uL [facility] Red Blood Count 4.40 4.20 - 5.50 X10*6/uL [facility] Hemoglobin 13.5 12.0 - 16.0 g/dl [facility] Hematocrit 39.3 37.0 - 47.0 % [facility] Mean Corpuscular Volume 89.3 80.0 - 98.0 fL [facility] Mean Corpuscular Hemoglobin 30.7 27.0 - 33.0 pg [facility] Mean Corpuscular HGB Conc 34.4 31.0 - 35.0 g/dl [facility] Red Cell Distribution Width 13.3 11.0 - 16.0 % [facility] Platelet Count 309 160 - 400 X10*3/uL [facility] Mean Platelet Volume 9.5 9.4 - 12.3 fL [facility] Neutrophils Percent Auto 67.3 45 - 73 % [facility] Imm Gran Pct Auto 0.6(H) 0.0 - 0.4 % [facility] Lymphocytes Percent Auto 21.0 20 - 40 % [facility] Monocytes Percent Auto 7.0 2 - 11 % [facility] Eosinophils Percent Auto 3.2 0 - 4 % [facility] Basophils Percent Auto 0.9 0 - 2 % [facility] [facility] NRBC Pct Auto 0.0 0.0 - 0.2 /100WBC [facility] Neutrophils Absolute Auto 7.1 2.0 - 8.3 x10*3/uL [facility] Imm Gran Abs Auto 0.06(H) 0.00 - 0.03 X10*3/uL [facility] Lymphocytes Absolute Auto 2.2 1.2 - 4.9 X10*3/uL [facility] Monocytes Absolute Auto 0.7 0.1 - 1.2 X10*3/uL [facility] Eosinophils Absolute Auto 0.3 0.0 - 0.4 X10*3/uL [facility] Basophils Absolute Auto 0.1 0.0 - 0.2 X10*3/uL [facility] NRBC Abs Auto 0.000 0.0 - 0.012 X10*3/uL [facility] 01/23/2025 11:4 8 AM EDT 01/23/2025 11:56 AM EDT us Generic External Data Provider LAB BLOOD ORDERAB LES Final Result [facility] [address] [place] [phone] * (ABNORMAL) Lactic Acid (01/23/2025 11:48 AM EDT) Lactic Acid 3.0(HH) 0.5 - 2.0 mmol/L [facility] Comment:Critical value for t est(s): LACTA Results called to bigg sousa by: MARKUS Person calling: LAURA Date: 01/23/25Time: 1227 01/23/2025 11:4 8 AM EDT 01/23/2025 11:56 AM EDT us Generic External Data Provider LAB BLOOD ORDERAB LES Final Result [facility] [address] [place] [phone] * Wound Care (01/17/2025 10:19 AM EDT) Narrative Tanesha España RN - 01/17/2025 10:19 AM EDT Tanesha España RN ? 01/17/2025 10:31 AM Wound Care Date/Time: 01/17/2025 10:19 AM Performed by: Tanesha España RN Authorized by: Louie Whalen MD ?? Consent: ??Consent obtained: ??Verbal ??Consent given by: ??Patient Procedure details: ??Wound location: ??Leg ??Leg location: ??R lower leg (morris) Dressing: ??Dressinx9 ABD pad. ??Wrapped with: 3in stretch gauze. Comments: ?? Located on right anterior lower leg (morris). Large area of cellulitis with wound approx 2in x 0.5in. PCP requesting dry dressing. [id number] ABD pad applied, wrapped with 3inx4.1yd stretch gauze, and secured with cloth tape. Advised to clean once daily, take Rxd Abx as instructed, keep wound dry. Gave wound care supplies to last until she sees me for wound check in 1 week and instructed to wrap from bottom of leg and move up. Avoid applying cloth tape directly to skin, stick it to itself. Advised to call if wound appears to be worsening or she has any questions or concerns. Pt agrees with plan. us Louie Whalen MD IN CLINIC/BEDSIDE ORD ERABLES Final Result * (ABNORMAL) POCT HGB A1C (01/17/2025 9:45 AM EDT) Hemoglobin A1C 8.9(A) 4.0 - 6.0 % QC Media Lot # [id number] Lot# Expiration Date ,027 Blood 01/17/2025 9:45 AM EDT Louie Whalen MD POINT OF CARE TEST EN TER/EDIT ORDERABLES Final Result * POCT Glucose (01/17/2025 9:40 AM EDT) Glucose Blood, POC 128 60 - 200 mg/dL QC Media Lot # [id number] Lot# Expiration Date ,025 Blood Capillary blood specimen / Unknown 01/17/2025 9:40 AM EDT Louie Whalen MD POINT OF CARE TEST EN TER/EDIT ORDERABLES Final Result * US VENOUS DUPLEX LE RT (01/09/2025 4:15 PM EDT) Anatomical Region Laterality Modality Abdomen Ultrasound 01/09/2025 4:15 PM EDT Narrative 01/09/2025 4:40 PM EDT ? [facility] ?[address] ?[place] [address] ? Ultrasound Report ? Signed ? Patient: Rodriguez,Yusra J ?MR#: [id number] ?? 3 ? : 1940 ?Acct:[id number] ? Age/Sex: 84 / F ?ADM Date: 01/09/25 ? Loc: HO.ED ? Attending Dr: ? Ordering Physician: Danielle Saldaña ?? Date of Service: 01/09/25 ?? Procedure(s): US venous duplex LE RT ?? Accession Number(s): [id number] ? cc: Louie Narayanan MD; Danielle Saldaña ? EXAMINATION: ?? US TRIPLEX LOWER EXTREMITY, RIGHT ? CLINICAL INFORMATION: ?? Right lower extremity pain and swelling. ? COMPARISON: ?? None available. ? TECHNIQUE: ?? Color-flow triplex imaging with spectral analysis and compression ?? Doppler were performed on the right lower extremity. ? FINDINGS: ?? Respiratory variation, normal compression and augmented flow are noted ?? throughout the right lower extremity. The visualized common femoral ?? vein, superficial femoral vein, profunda femoral vein, popliteal vein ?? and midcalf peroneal and posterior tibial venous segments show no ?? evidence of deep venous thrombosis. ? There is no Gregory's cyst. ? US/US venous duplex LE RT ?? IMPRESSION: ?? No evidence of deep venous thrombosis involving the right lower ?? extremity. ? Electronically signed by: ??Caleb Medina MD ??01/09/2025 04:38 PM EDT RP ? Dictated By: ?Caleb Medina MD ? Signed By: ?<Electronically signed by Caleb Medina MD in OV> ?01/09/25 1638 ? DD/ 1615 ? TD/TT: 01/09/25 1619 ? Night Order Selector: ? Procedure Note Raimundo, Image - 01/09/2025 [place] [address] Ultrasound Report Signed Patient: Yusra Rodriguez JMR#: [id number] 3 : 2Acct:[id number] Age/Sex: 84 / FADM Date: 01/09/25 Loc: .ED Attending Dr: Ordering Physician: Danielle Saldaña Date of Service: 01/09/25 Procedure(s): US venous duplex LE RT Accession Number(s): [id number] cc: Louie Narayanan MD; Danielle Saldaña EXAMINATION: US TRIPLEX LOWER EXTREMITY, RIGHT CLINICAL INFORMATION: Right lower extremity pain and swelling. COMPARISON: None available. TECHNIQUE: Color-flow triplex imaging with spectral analysis and compression Doppler were performed on the right lower extremity. FINDINGS: Respiratory variation, normal compression and augmented flow are noted throughout the right lower extremity. The visualized common femoral vein, superficial femoral vein, profunda femoral vein, popliteal vein and midcalf peroneal and posterior tibial venous segments show no evidence of deep venous thrombosis. There is no Gregory's cyst. US/US venous duplex LE RT IMPRESSION: No evidence of deep venous thrombosis involving the right lower extremity. Electronically signed by: Caleb Medina MD 01/09/2025 04:38 PM EDT Dictated By: Caleb Medina MD Signed By: <Electronically signed by Caleb Medina MD in OV> 01/09/25 1638 DD/ 1615 TD/TT: 01/09/25 1619 Night Order Selector: us [facility] External Provider IMG US PROCEDURES Final Result * B Type Natriuretic Peptide (BNP) (01/09/2025 4:02 PM EDT) Pathologist [facility] B Type Natriuretic Peptide 35 <100 pg/mL [facility] 01/09/2025 4:02 PM EDT 01/09/2025 4:05 PM EDT Generic External Data Provider LAB BLOOD ORDERAB LES Final Result Performing Organization Address [facility] Co de Phone Number [facility] [address] [place] [phone] * Hepatic Function Panel (01/09/2025 4:02 PM EDT) Bilirubin, Total 0.3 0.0 - 1.0 mg/dL [facility] Bilirubin, Direct 0.1 0.0 - 0.5 mg/dL [facility] Aspartate Amino Transferase 15 5 - 31 U/L [facility] Alanine Aminotransferase 22 0 - 31 U/L [facility] Total Protein 7.4 6.5 - 8.0 g/dL [facility] Albumin Level 4.0 3.5 - 5.0 g/dL [facility] Alkaline Phosphatase 99 39 - 117 U/L [facility] 01/09/2025 4:02 PM EDT 01/09/2025 4:05 PM EDT us Generic External Data Provider LAB BLOOD ORDERAB LES Final Result [facility] [address] [place] [phone] * (ABNORMAL) Basic Metabolic Panel (01/09/2025 4:02 PM EDT) Sodium 137 135 - 145 mmol/L [facility] Potassium 3.7 3.3 - 5.1 mmol/L [facility] Chloride 103 96 - 108 mmol/L [facility] Carbon Dioxide 26 22 - 29 mmol/L [facility] Anion Gap 12 12 - 20 [facility] Urea Nitrogen (BUN) 22(H) 9 - 16 mg/dL [facility] Creatinine, Serum 0.97 0.5 - 1.4 mg/dL [facility] Creatinine Clr Calc Pharmacy 44.5 [facility] Comment:Provided height and weight: 167.64 cm,71.4 kg.eGFR (calculated from the MDRD study equation) and eCrCl(calculated from the Cockcroft-Gault equation) are based ondifferent parameters and may not yield comparable results.If eCrCl result is absurd, please check patient'sheight/weight. Estimated Glomerular Filt Rate 55 [facility] Comment:Chronic Kidney Disea se: Estimated GFR < 60 mL/min/1.48f3Tyrzrm Kidney Disease: Estimated GFR < 15 mL/min/1.73m2 Glucose 246(H) 60 - 115 mg/dL [facility] Calcium 9.3 8.4 - 10.2 mg/dL [facility] 01/09/2025 4:02 PM EDT 01/09/2025 4:05 PM EDT us Generic External Data Provider LAB BLOOD ORDERAB LES Final Result [facility] [address] [place] [phone] * XR Tibia Fibula 2 Views Right (01/09/2025 3:42 PM EDT) Only the most recent of2 resultswithin the time period is included. Anatomical Region Laterality Modality Lower Extremities, Lower Leg Right Rad iographic Imaging 01/09/2025 3:42 PM EDT Narrative 01/09/2025 3:58 PM EDT ? [facility] ?[address] ?[place] [address] ?XRay Report ? Signed ? Patient: Rodriguez,Yusra J ?MR#: [id number] ?? 3 ? : 1940 ?Acct:[id number] ? Age/Sex: 84 / F ?ADM Date: 01/09/25 ? Loc: HO.ED ? Attending Dr: ? Ordering Physician: Danielle Saldaña ?? Date of Service: 01/09/25 ?? Procedure(s): XR tibia fibula RT 2V ?? Accession Number(s): [id number] ? cc: Louie Narayanan MD; Danielle Saldaña ? EXAMINATION: ?? XR TIBIA AND FIBULA, RIGHT ? CLINICAL INFORMATION: ?? r/o osteo ? COMPARISON: ?? None available. ? TECHNIQUE: ?? AP and lateral views of the right tibia and fibula were obtained. ? FINDINGS: ?? No fracture, dislocation, or suspicious focal bony lesion. No region of ?? focal osteopenia, or permeative bony change to suggest radiographic ?? changes of osteomyelitis. No periostitis present. ? Imaged joints are unremarkable. ? No discrete soft tissue abnormality. ? XR/XR tibia fibula RT 2V ?? IMPRESSION: ?? Normal right tibia and fibula. No radiographic changes of osteomyelitis. ? Electronically signed by: ??Caleb Medina MD ??01/09/2025 03:55 PM EDT RP ? Dictated By: ?Caleb Medina MD ? Signed By: ?<Electronically signed by Caleb Medina MD in OV> ?01/09/25 1555 ? DD/ 1542 ? TD/TT: 01/09/25 1553 ? Night Order Selector: ? Procedure Note Ralph Eubanks - 01/09/2025 [facility] [address] [place] [address]. [place] [address] XRay Report Signed Patient: Yusra RodriguezR#: [id number] 3 : 2Acct:[id number] Age/Sex: 84 / FADM Date: 01/09/25 Loc: HO.ED Attending Dr: Ordering Physician: Danielle Saldaña Date of Service: 01/09/25 Procedure(s): XR tibia fibula RT 2V Accession Number(s): [id number] cc: Louie Narayanan MD; Danielle Saldaña EXAMINATION: XR TIBIA AND FIBULA, RIGHT CLINICAL INFORMATION: r/o osteo COMPARISON: None available. TECHNIQUE: AP and lateral views of the right tibia and fibula were obtained. FINDINGS: No fracture, dislocation, or suspicious focal bony lesion. No region of focal osteopenia, or permeative bony change to suggest radiographic changes of osteomyelitis. No periostitis present. Imaged joints are unremarkable. No discrete soft tissue abnormality. XR/XR tibia fibula RT 2V IMPRESSION: Normal right tibia and fibula. No radiographic changes of osteomyelitis. Electronically signed by: Caleb Medina MD 01/09/2025 03:55 PM EDT RP Dictated By: Caleb Medina MD Signed By: <Electronically signed by Caleb Medina MD in OV> 01/09/25 1555 DD/ 1542 TD/TT: 01/09/25 1553 Night Order Selector: [facility] External Provider IMG XR PROCEDURES Final Result * US RENAL BI (11/02/2024 3:52 PM EDT) Anatomical Region Laterality Modality Abdomen Ultrasound 11/02/2024 3:52 PM EDT Narrative 11/02/2024 3:53 PM EDT ? [facility] ?[address] ?[place] [address] ? Ultrasound Report ? Signed ? Patient: Rodriguez,Yusra J ?MR#: [id number] ?? 3 ? : 1940 ?Acct:[id number] ? Age/Sex: 84 / F ?ADM Date: 03/14/25 ? Loc: HO.US ? Attending Dr: Suad ROJAS ? Ordering Physician: Suad Ortega ?? Date of Service: 11/02/24 ?? Procedure(s): US renal BI ?? Accession Number(s): [id number] ? cc: Louie Narayanan MD; Suad Ortega [...] in OV> ? 11/02/24 1552 ? DD/ 1552 ? TD/TT: 11/02/24 1552 ? Night Order Selector: ? Procedure Note Donjaspreetter, Image - 11/02/2024 [place] [address] Ultrasound Report Signed Patient: Yusra Rodriguez JMR#: [id number] 3 : 2Acct:[id number] Age/Sex: 84 / FADM Date: 11/02/24 Loc: HO.US Attending Dr: Suad ROJAS Ordering Physician: Suad Ortega Date of Service: 11/02/24 Procedure(s): US renal BI Accession Number(s): [id number] cc: Louie Narayanan MD; Suad Ortega CLINICAL [...] signed by Christian Iraheta MD in OV> 11/02/241551 DD/ 51 TD/TT: 11/02/241551 Night Order Selector: us [facility] External Provider IMG US PROCEDURES Final Result * Collagen Cross-Linked N-Telopeptide (NTx), U (11/02/2024 9:13 AM EDT) N Telopetide (NTx) 29 see note H [facility] Comment:Result Units: nM BCE /mM creatPremenopausal Females: 4 - 64 nM BCE/mM creatResults are primarily used for monitoring theresponse to therapy. A value within thepremenopausal range does not rule out osteoporosisnor the need for therapyUnits of Measure: nM BCE/mM creat CREATININE, RANDOM URINE 144 20 - 275 mg/dL [facility] Comment:THIS TEST WAS PERFOR MED AT:[facility] [place] [address]DVEHBPP W. MASON,MD,PHD 11/02/2024 9:13 AM EDT 11/02/2024 10:37 AM EDT Generic External Data Provider LAB URINE ORDERAB LES Final Result [facility] [address] [place] [phone] * Albumin, Random Urine W/Creatinine (10/26/2024 8:36 AM EST) Creatinine, Urine 86.79 mg/dL [facility] Microalbumin Urine 9.0 mg/L [facility] Microalbum Creatinine Ratio Ur 10.3 <30 ug/mg cr [facility] Comment:Albumin/Creatinine R atio Reference Ranges: Normal: < 30 ug/mg creatinine Microalbuminuria: 30 - 300 ug/mg creatinineClinical Albuminuria: > 300 ug/mg creatinine Urine (Urine, Random) 10/26/2024 8:36 AM EST 10/26/2024 8:54 AM EST us Louie Whalen MD LAB URINE ORDERABLES Final Result [facility] [address] [place] [phone] * BI Mammogram Screening Tomosynthesis Bilateral (09/13/2024 8:38 AM EST) Anatomical Region Laterality Modality Breast Bilateral Mammography 09/13/2024 8:38 AM EST Narrative 09/21/2024 4:45 PM EST ? [facility] [place] ? [address] ?[place] [address] ? Mammography Report ? Signed ? Patient: Rodriguez,Yusra J ?MR#: [id number] ?? 3 ? : 1940 ?Acct:[id number] ? Age/Sex: 83 / F ?ADM Date: 09/13/24 ? Loc: HO.MAMMO ? Attending Dr: Louie Narayanan MD ? Ordering Physician: Louie Narayanan MD ?Resu ?? lts: 1Negative ? Date of Service: 09/13/24 ?Follow Up: 1 Year From Orig ?? inal Mammogram ? Procedure(s): MM tomosynthesis screening BI ?? Accession Number(s): [id number] ? cc: Louie Narayanan MD ? EXAMINATION: [...] DD/ 0838 ? TD/TT: 09/13/24 0853 ? Night Order Selector: ? Procedure Note Raimundo, Image - 09/21/2024 [facility] [address] [place] [address] [place] [address] Mammography Report Signed Patient: Yusra Rodriguez JMR#: [id number] 3 : 2Acct:[id number] Age/Sex: 83 / FADM Date: 09/13/24 Loc: HO.MAMMO Attending Dr: Louie Narayanan MD Ordering Physician: Louie Narayanan MDResu lts: 1Negative Date of Service: 09/13/24Follow Up: 1 Year From Orig inal Mammogram Procedure(s): MM tomosynthesis screening BI Accession Number(s): [id number] cc: Louie Narayanan MD EXAMINATION: MM SCREENING [...] by: Judi Navarro DO 09/21/2024 04:42 PM [facility] Dictated By: Judi Navarro DO Signed By: <Electronically signed by Judi Navarro DO in OV> 09/21/24 1642 DD/ 0838 TD/TT: 09/13/24 0853 Night Order Selector: us Louie Whalen MD IM BI PROCEDURES Fin al Result * (ABNORMAL) Lipid Panel with Reflex to Direct LDL (02/11/2023 9:28 AM EDT) Cholesterol, Total 175 <200 mg/dL [facility] HDL Cholesterol 48(L) > OR = 50 mg/dL [facility] [place] [facility] Triglycerides 263(H) <150 mg/dL [facility] [place] [facility] Comment: If a non-fasting specimen was collected, consider repeat triglyceride testing on a fasting specimen if clinically indicated. Simón et al. J. of Clin. Lipidol. 2015;9:129-169. LDL Cholesterol 92 mg/dL (calc) [facility] [place] [facility] Comment: Reference range: <100 Desirable range <100 mg/dL for primary prevention; ?? <70 mg/dL for patients with CHD or diabetic patients with > or = 2 CHD risk factors. LDL-C is now calculated using the Christa calculation, which is a validated novel method providing better accuracy than the Friedewald equation in the estimation of LDL-C. Ciaran SS et al. HITESH. 2013;310(19): 9742-4747 (http://education.Birthday Slam/faq/GUG475) Chol/HDLC Ratio 3.6 <5.0 (calc) [facility] [place] [facility] Non-HDL Cholesterol 127 <130 mg/dL (calc) [facility] [place] [facility] Comment: For patients with diabetes plus 1 major ASCVD risk factor, treating to a non-HDL-C goal of <100 mg/dL (LDL-C of <70 mg/dL) is considered a therapeutic option. 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
[2025-01-23 12:57] LABS: Alkaline Phosphatase 103 U/L (39-117); C Reactive Protein 0.52 mg/dL (< or = 0.50)
[2025-01-23] MEDS: 0.9 % Sodium Chloride 1,000 ML 999 ML IV (13:06)
[2025-01-23] MEDS: Morphine Sulfate 2 MG/ML CARTRIDGE IVPUSH (13:11)
[2025-01-23] MEDS: Insulin Regular, Human 100 UNIT/ML 10 ML VIAL IVPUSH (13:14)
[2025-01-23 13:20] VITALS: BP 146/71; PULSE 99; RESP 16; TEMP 36.2; O2SAT 95
[2025-01-23 13:23] LABS: Erythrocyte Sedimentation Rate 13 MM/HR (0-20)
--- NOTE | 2025-01-23 13:33 | PC.NURSE ---
Pt to ED 21 from [facility]. C/O wound infection to RLE after fall 2 weeks ago- per pt has had multiple treatments of abx. A/O x 3, no apparent s/s of distress. Reports pain 8/10 in RLE. # 20 placed to right FA. Labs collected and sent. IVF and medications administered per MAR. RLE laceration noted with erythema and minimal purulent drainage. Plan of care ongoing.
[2025-01-23 13:57] LABS: Reflex Lactate? Lactic Acid Added
[2025-01-23 14:00] VITALS: BP 149/75; PULSE 89; RESP 12; TEMP 36.5; O2SAT 96
--- NOTE | 2025-01-23 14:24 | PC.NURSE ---
Pt c/o increaded pain to RLE, ED provider notified.
[2025-01-23 14:27] LABS: ~Lactic Acid-LAB USE ONLY 1.8 mmol/L (0.5-2.0)
[2025-01-23 15:02] LABS: Glucose, Whole Blood 133 mg/dL (60-115)
[2025-01-23 15:18] VITALS: BP 134/74; PULSE 87; RESP 16; TEMP 36.2; O2SAT 94
== END 2025-01-23 15:27 | disposition home or self-care (01) ==
PROVIDERS: Physician Assistant Medical; Emergency Provider Emergency Medicine Emergency Medical Services; PCP Internal Medicine
DX: I77.6 Arteritis, unspecified (principal); M79.661 Pain in right lower leg; E11.9 Type 2 diabetes mellitus without complications; I10 Essential (primary) hypertension; Z79.4 Long term (current) use of insulin; Z79.899 Other long term (current) drug therapy
CPT/HCPCS: 36415; 73590; 80053; 82947; 83605; 83735; 85025; 85652; 86140; 87040; 87070; 87077; 87186; 87205; 93005; 96361; 96374; 96375; 99285; J2270

== ENCOUNTER → 2025-01-23 11:25 | Outpatient (BNV) | payer OTHER, SELFPAY | PROVIDERS: Emergency Provider Emergency Medicine Emergency Medical Services; PCP Internal Medicine; Visit Provider Radiology Diagnostic Radiology | DX: M79.604 Pain in right leg (principal) | CPT/HCPCS: 73590 ==

== ENCOUNTER → 2025-01-23 12:07 | Outpatient (BNV) | payer OTHER, SELFPAY | PROVIDERS: Emergency Provider Emergency Medicine Emergency Medical Services; PCP Internal Medicine; Visit Provider Internal Medicine | DX: I49.3 Ventricular premature depolarization (principal); R00.0 Tachycardia, unspecified | CPT/HCPCS: 93010 ==

== ENCOUNTER 2025-01-25 08:39 | Emergency (ER) | payer OTHER, SELFPAY ==
[2025-01-25] VITALS (8 sets, daily range): BP systolic 108–135; BP diastolic 58–85; PULSE 73–110; RESP 16–17; TEMP 36.5–36.7; O2SAT 94–98; BMI 37.1
--- NOTE | ~2025-01-25 | CT_ITS ---
EXAMINATION: CT HEAD WITHOUT CONTRAST CLINICAL INFORMATION: Head trauma. COMPARISON: 08/05/2024. TECHNIQUE: Contiguous axial imaging was performed from the skull base to vertex without intravenous administration of contrast. This CT examination was performed using dose optimization techniques as appropriate, variously including the following: *Automated exposure control *Adjustment of mA and/or kV according to patient size (this includes techniques or standardized protocols for targeted exams where dose is matched to indication/reason for exam; i.e. extremities or head) *Use of iterative reconstruction technique FINDINGS: There is no evidence of intracranial hemorrhage or extra-axial fluid collection. There is no mass effect, or edema. No CT evidence of acute territorial infarct. Ventricles, sulci, and cisterns are normal in size and configuration for patient age. No hydrocephalus. No midline shift. Negative hyperdense MCA sign. Negative insular ribbon sign. Patchy periventricular and deep white matter hypoattenuation is consistent with mild to moderate small vessel ischemic changes. Normal pituitary. Mild atheromatous calcification of the bilateral carotid siphons and V4 segments vertebral arteries bilaterally. Globes and orbital contents image normally. No extracranial soft tissue abnormalities. The paranasal sinuses, mastoid air cells, and tympanic cavities are normally aerated. No suspicious bony abnormalities. There are no acute fractures evident. CT/CT head/brain wo IV con IMPRESSION: No acute intracranial abnormality. No fracture evident. Electronically signed by: Caleb Medina MD 01/25/2025 10:02 AM EDT
--- NOTE | ~2025-01-25 | CT_ITS ---
EXAMINATION: CT CERVICAL SPINE WITHOUT CONTRAST CLINICAL INFORMATION: Head trauma, neck pain. COMPARISON: 08/05/2024. TECHNIQUE: Spiral CT imaging of the cervical spine performed in axial plane without contrast. Multiplanar reformatted images were constructed from the axial data set. This CT examination was performed using dose optimization techniques as appropriate, variously including the following: *Automated exposure control *Adjustment of mA and/or kV according to patient size (this includes techniques or standardized protocols for targeted exams where dose is matched to indication/reason for exam; i.e. extremities or head) *Use of iterative reconstruction technique FINDINGS: CORONAL ALIGNMENT: -Normal. SAGITTAL ALIGNMENT: -Normal lordosis. No subluxations. C1-C2 AND CRANIOCERVICAL JUNCTION: -Intact and normally aligned. There are moderate degenerative changes in the anterior atlantoaxial joint. There is mild dorsal pannus formation. VERTEBRAL BODIES AND FACETS: -No fracture, compression deformity, or suspicious bone lesion. No evidence of traumatic subluxation. -There are bulky ventral vertebral body and disc osteophytes spanning C4-C6, findings suggestive of DISH. There is normal facet alignment. There are moderate degenerative facet changes on the left at C2-3 and C3-4. DISCS: -Moderate disc degeneration present C4-5, C5-6, and C6-7. CENTRAL CANAL: -No evidence of high-grade central canal narrowing or large disc herniation allowing for modality limitations. -There is a moderate stenosis noted at C3-4 due to a irregular disc protrusion, which narrows the right thecal sac to approximately 6 mm. Cannot exclude cord impingement. This is unchanged from the prior exam. -Smaller disc protrusion C4-5. PREVERTEBRAL AND PARAVERTEBRAL SOFT TISSUES: -No prevertebral or paravertebral soft tissue swelling or edema. No abnormal fluid collection. -Thyroid is somewhat irregular although there is no dominant nodule by CT. -There is no mass or abnormal lymphadenopathy within the neck. LUNG APICES: -Clear bilaterally. No pneumothorax. CT/CT cervical spine wo IV con IMPRESSION: 1. No CT evidence of acute cervical spine fracture or injury. 2. Spondylosis as discussed, stable from the prior examination. Electronically signed by: Caleb Medina MD 01/25/2025 10:10 AM EDT
--- NOTE | ~2025-01-25 | XR_ITS ---
EXAMINATION: XR SHOULDER, LEFT CLINICAL INFORMATION: pain and fall COMPARISON: None available. TECHNIQUE: AP external rotation, Grashey, scapular Y views of the left shoulder. FINDINGS: Median size osteophyte is present involving the inferomedial humeral head. Degenerative cyst is present in the greater trochanter. There is a small marginal osteophyte at present on the inferior glenoid. There is mild glenohumeral joint space narrowing. Mild degenerative hypertrophy is seen at the AC joint. There is no AC joint separation or glenohumeral dislocation. No acute fracture. 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 No acute abnormality. Electronically signed by: Lloyd Rajan MD 01/25/2025 10:42 AM EDT
--- NOTE | 2025-01-25 08:44 | ED_ITS ---
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 ) History of Present Illness ED Provider: TYRA HPI Narrative: 84 yo female with PMH of renal colic, cellulitis, KRISTEN, E. coli bacteremia, HTN, HLD, DVT on eliquis here with c/o having some n/v yesterday then today went to clinic to follow up with a rash she has had and cellulitis RLE. She notes when she moves and gets up the room spins and she feels dizzy - she fell x 2. C/o head strike and L shoulder pain - EMS denies LOC but the patient states the world was lost . She has no CP, she states she sometimes has dyspnea. She denies fevers, abdominal pain, diarrhea. She tells me she lives alone. MD Complaint: generalized weakness (dizziness) Onset (ago): day(s) (1) Duration: intermittent Location: generalized Migration: none Severity: moderate Relieving factors: rest Exacerbating factors: movement (standing up and walking) Associated symptoms: shortness of breath Related Data Home Medications ?Medication ?Instructions ?Recorded ?Confirmed aspirin 81 mg tablet,delayed 81 mg PO DAILY@1200 12/26/20 01/09/25 release (Adult Low Dose Aspirin) insulin glargine 100 unit/mL (3 16 unit subcut BEDTIME 12/26/20 01/09/25 mL) subcutaneous pen (Lantus Solostar U-100 Insulin) metformin 1,000 mg tablet 1,000 mg PO BID 12/26/20 01/09/25 atorvastatin 80 mg tablet 80 mg PO BEDTIME 12/23/21 01/09/25 blood sugar diagnostic (OneTouch #10 ea 12/23/21 08/05/24 Ultra Test strips) furosemide 40 mg tablet 40 mg PO BID 12/23/21 01/09/25 lancets 33 gauge (TRUEplus Lancets) #100 ea 12/23/21 08/05/24 pen needle, diabetic 31 gauge x #1,200 ea 12/23/21 08/05/24 5/16 (UltiCare Pen Needle) amlodipine 5 mg tablet 5 mg PO DAILY 08/05/24 01/09/25 dulaglutide 4.5 mg/0.5 mL 4.5 mg subcut MO@0900 08/05/24 01/09/25 subcutaneous pen injector (Trulicity) glipizide 10 mg tablet 10 mg PO DAILY 08/05/24 01/09/25 hydralazine 50 mg tablet 50 mg PO BIDWM 08/05/24 01/09/25 valsartan 320 mg tablet 320 mg PO DAILY 08/05/24 01/09/25 apixaban 5 mg tablet (Eliquis) 5 mg PO BID 01/09/25 01/09/25 cholecalciferol (vitamin D3) 50 50 mcg PO DAILY 01/09/25 01/09/25 mcg (2,000 unit) capsule (Vitamin D3) Previous Rx's ?Medication ?Instructions ?Recorded calcium carbonate 600 mg PO BID #180 tabs 01/02/24 doxycycline monohydrate 100 mg 100 mg PO BID #12 tabs 01/10/25 tablet tramadol 50 mg tablet 25 mg (1/2 x 50 mg) PO Q6H PRN 01/10/25 Pain, Severe (Pain Scale 7-10) #14 tabs morphine 15 mg immediate release 15 mg PO Q8H PRN pain (scale score 01/23/25 tablet 7-10) #9 tabs Allergies Allergy/AdvReac Type Severity Reaction Status Date / Time Sulfa (Sulfonamide Allergy Intermediate RASH/ITCH Verified 01/25/25 09:03 Antibiotics) sulfamethoxazole Allergy Intermediate HIVES Verified 01/25/25 09:03 [From BACTRIM] trimethoprim [From BACTRIM] Allergy Intermediate HIVES Verified 01/25/25 09:03 oxycodone [From Percocet] Allergy Unknown Unknown Verified 01/25/25 09:03 penicillin V Allergy Unknown Unknown Verified 01/25/25 09:03 Review of Systems 2 Review of Systems: Constitutional : No Fever, No Chills ENT/Mouth : No sore throat, No Rhinorrhea, No Swallowing Difficulty Eyes: No Eye Pain, No Swelling, No Redness Cardiovascular : No Chest Pain, positive SOB, No Orthopnea, no Edema Respiratory : No Cough, No Sputum, No Wheezing, positive dyspnea Gastrointestinal : pos Nausea, pos Vomiting, No Diarrhea, No abdominal Pain, No Hematochezia, No Melena Genitourinary : No Dysuria, No Urinary Frequency, No Hematuria Musculoskeletal : pos joint pain, No Myalgias Skin : No Skin Lesions, No rash Neuro : No Weakness, No Numbness, pos Dizziness, pos Headache All other systems reviewed and are negative [facility] Past Medical History Attestation statement: The following information was validated with the patient. Source: old records reviewed Medical History Hydronephrosis of right kidney Hypertension Diabetes mellitus Gram-negative bacteremia Septic shock UTI (urinary tract infection) Calculus of kidney Osteoporosis Surgical History History of surgery Hx of hemorrhoidectomy H/O colonoscopy Hx of cystoscopy Hx of lithotripsy Hx of hysterectomy Family History Family History Father Heart problem Mother No problems noted. 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 Oriented X month, place and person but does not have . No acute distress. Eyes: Pupils equal, round and reactive to light. ENT: Pharynx normal. atraumatic Neck: Normal inspection. Neck supple. in collar CVS: Normal heart rate and rhythm. Pulses normal. Respiratory: No respiratory distress. Breath sounds normal. Abdomen: Soft and nontender. Skin: Skin warm and dry. Normal skin color. Normal skin turgor. Extremities: No lower extremity edema. ttp along L shoulder she is distal NV intact Neuro: Oriented X 3 but doesn't know year knows place, person, month, day. No motor deficit. No sensory deficit. CN2-12 intact Course Course Course Narrative: + KRISTEN IVF ordered Reevaluation(s) Reevaluation #1: neg ortho VS after IVF feels much better and safe to DC home Medications Administered Discontinued Medications Generic Name Dose Route Start Last Admin Trade Name Felipa PRN Reason Stop Dose Admin Lactated Ringer's 1,000 mls @ 999 mls/hr 01/25/25 09:53 01/25/25 11:15 Lr IV 01/25/25 10:53 Infused .Q1H1M ONE Infusion Medical Decision Making Medical Decision Making [facility] Narrative: 84 yo female with PMH of renal colic, cellulitis, KRISTEN, E. coli bacteremia, HTN, HLD, DVT on eliquis here with c/o dizziness when standing and moving head - on exam no focal deficits she does seem to have mild memory issue but she is alert to place, month, day and person she doesn't know the year. At this time given her hx I am going to obtain CT head/cspine, L shoulder xray, dixon labs, EKG and UA. Possible anemia, dehydration, vertigo, ICH, orthostatics. Differential Diagnosis Differential Diagnoses: The differential diagnosis associated with the presentation includes ICH, vertigo, given eliquis use and mild dyspnea doubt VTE she has a med list that states eliquis and I can see fill mid December but her med list from home does not have eliquis on it and she doesn't know why she is on it dehydration anemia orthostatics Admission/Observation Consideration of admission/observation: Escalation of care including admission/observation considered CR improved neg ortho VS will hold her BP medications for one day lasix for 2 days at baseline per family and her family is going to help with med directions over the weekend Lab Data [facility] Lab Attestation statement: I reviewed the patient's lab results. 01/25/25 09:23 01/25/25 12:04 Labs: Lab Results 01/25/25 01/25/25 01/25/25 Range/Units 09:23 11:37 12:04 WBC 11.2 H (4.8-10.8) X10*3/uL RBC 4.68 (4.20-5.50) X10*6/uL Hgb 14.2 (12.0-16.0) g/dl Hct 41.4 (37.0-47.0) % MCV 88.5 (80.0-98.0) fL MCH 30.3 (27.0-33.0) pg MCHC 34.3 (31.0-35.0) g/dl RDW 13.5 (11.0-16.0) % Plt Count 351 (160-400) X10*3/uL MPV 9.1 L (9.4-12.3) fL Immature Gran % (Auto) 0.6 H (0.0-0.4) % Neut % (Auto) 66.3 (45-73) % Lymph % (Auto) 24.0 (20-40) % Gillespie % (Auto) 7.7 (2-11) % Eos % (Auto) 0.7 (0-4) % Baso % (Auto) 0.7 (0-2) % Lymph # (Auto) 2.7 (1.2-4.9) X10*3/uL Gillespie # (Auto) 0.9 (0.1-1.2) X10*3/uL Eos # (Auto) 0.1 (0.0-0.4) X10*3/uL Baso # (Auto) 0.1 (0.0-0.2) X10*3/uL Abs Immat Gran (auto) 0.07 H (0.00-0.03) X10*3/uL Absolute Neuts (auto) 7.4 (2.0-8.3) x10*3/uL Absolute Nucleated RBC 0.000 (0.0-0.012) X10*3/uL Nucleated RBC % (auto) 0.0 (0.0-0.2) /100WBC Sodium 140 (135-145) mmol/L Potassium 3.8 (3.3-5.1) mmol/L Chloride 100 (96-108) mmol/L Carbon Dioxide 28 (22-29) mmol/L Anion Gap 16 (12-20) BUN 32 H (9-16) mg/dL Creatinine 1.54 H 1.23 (0.5-1.4) mg/dL Estim Creat Clear Calc 21.5 26.9 Estimated GFR 32 42 Random Glucose 190 H (60-115) mg/dL Calcium 11.0 H D (8.4-10.2) mg/dL Magnesium 1.6 (1.6-2.6) mg/dL Total Bilirubin 0.6 (0.0-1.0) mg/dL Direct Bilirubin 0.2 (0.0-0.5) mg/dL AST 17 (5-31) U/L ALT 18 (0-31) U/L Alkaline Phosphatase 104 (39-117) U/L Troponin I High Sens 6.5 (<3.5-17.0) ng/L Total Protein 7.5 (6.5-8.0) g/dL Albumin 4.2 (3.5-5.0) g/dL Urine Color Dark Yellow Urine Appearance Cloudy Urine pH 5.0 (5.0-9.0) Ur Specific [place] 1.025 (1.005-1.025) Urine Protein 100 (2+) H (Neg-Trace) mg/dL Urine Glucose (UA) 100 H (Negative) mg/dL Urine Ketones 15 (Negative) mg/dL Urine Blood Negative (Negative) Urine Nitrite Negative (Negative) Ur Leukocyte Esterase Trace H (Negative) Urine RBC 0-2 (0-2) /HPF Urine WBC 0-5 (0-5) /HPF Ur Squamous Epith Cells 11-20 (0-2) /HPF Urine Bacteria Trace (None Seen) Hyaline Casts >20 (0-2) /LPF Granular Casts Present Independent Interpretation I performed an independent interpretation of an: EKG, Plain X-Ray (no trauma) and CT Scan (no trauma to head or cspine) Interpretation: Rate: Rhythm: [place]: Normal P waves. Normal DEE DEE. Normal QRS complex. ST T wave : qTC: prior studies: The study has been interpreted contemporaneously by me. . Radiology Impression Discussion of test interpretation with radiology: I have reviewed the radiologist's reading. Independent Historian Clinical information obtained from an independent historian. History obtained from or confirmed by: EMS External Record Review External record reviewed: Inpatient record and Outpatient record Discharge Plan Discharge Clinical Impression: KRISTEN (acute kidney injury) Head injury Qualifiers: Encounter type: initial encounter Qualified Code(s): S09.90XA - Unspecified injury of head, initial encounter Patient Disposition: Home, Self-Care Instructions: Acute Kidney Injury (DC), Head Injury (ED) Additional Instructions: CT scans normal labs reasuring other than dehydration we gave you fluids for this please hold blood pressure medications until Tuesday hold your lasix pill until Tuesday. return for any worsening symptoms or concerns. rest and stay hydrated. Prescriptions: No Action calcium carbonate 600 mg calcium (1,500 mg) tablet 600 mg PO BID Qty: 180 3RF Eliquis 5 mg tablet 5 mg PO BID cholecalciferol (vitamin D3) [Vitamin D3] 50 mcg (2,000 unit) capsule 50 mcg PO DAILY doxycycline monohydrate 100 mg tablet 100 mg PO BID Qty: 12 0RF tramadol 50 mg Tablet 25 mg PO Q6H PRN (Reason: Pain, Severe (Pain Scale 7-10)) Qty: 14 0RF amlodipine 5 mg tablet 5 mg PO DAILY valsartan 320 mg tablet 320 mg PO DAILY hydralazine 50 mg tablet 50 mg PO BIDWM glipizide 10 mg tablet 10 mg PO DAILY Trulicity 4.5 mg/0.5 mL pen injector 4.5 mg subcut MO@0900 morphine 15 mg tablet 15 mg PO Q8H PRN (Reason: pain (scale score 7-10)) Qty: 9 0RF Rx Instructions: Partial Fill upon patient request. aspirin [Adult Low Dose Aspirin] 81 mg tablet,delayed release (DR/EC) 81 mg PO DAILY@1200 metformin 1,000 mg tablet 1,000 mg PO BID Lantus Solostar U-100 Insulin 100 unit/mL (3 mL) insulin pen 16 unit subcut BEDTIME furosemide 40 mg tablet 40 mg PO BID atorvastatin 80 mg tablet 80 mg PO BEDTIME (DME) lancets [TRUEplus Lancets] 33 gauge misc See Rx Instructions topical TID Qty: 100 Rx Instructions: As directed (DME) OneTouch Ultra Test Strip See Rx Instructions .ROUTE TID Qty: 10 Rx Instructions: As directed (DME) pen needle, diabetic [UltiCare Pen Needle] 31 gauge x 5/16 needle See Rx Instructions subcut DAILY Qty: 1200 Rx Instructions: As directed Interventions: ED Discharge Assessment Last Done: 01/25/25 12:59 Discharge Date/Time: 01/25/25 13:00 Print Language: [place]
[2025-01-25 09:29] LABS: MANUAL DIFF FLAG NO
[2025-01-25 09:30] LABS: Basophils Absolute Auto 0.1 X10*3/uL (0.0-0.2); Basophils Percent Auto 0.7 % (0-2); Eosinophils Absolute Auto 0.1 X10*3/uL (0.0-0.4); Eosinophils Percent Auto 0.7 % (0-4); Hematocrit 41.4 % (37.0-47.0); Hemoglobin 14.2 g/dl (12.0-16.0); Imm Gran Abs Auto 0.07 X10*3/uL (0.00-0.03); Imm Gran Pct Auto 0.6 % (0.0-0.4); Lymphocytes Absolute Auto 2.7 X10*3/uL (1.2-4.9); Mean Corpuscular HGB Conc 34.3 g/dl (31.0-35.0); Mean Corpuscular Hemoglobin 30.3 pg (27.0-33.0); Mean Corpuscular Volume 88.5 fL (80.0-98.0); Mean Platelet Volume 9.1 fL (9.4-12.3); Monocytes Absolute Auto 0.9 X10*3/uL (0.1-1.2); Monocytes Percent Auto 7.7 % (2-11); Neutrophils Absolute Auto 7.4 x10*3/uL (2.0-8.3); Neutrophils Percent Auto 66.3 % (45-73); Platelet Count 351 X10*3/uL (160-400); Red Blood Count 4.68 X10*6/uL (4.20-5.50); Red Cell Distribution Width 13.5 % (11.0-16.0); White Blood Count 11.2 X10*3/uL (4.8-10.8)
[2025-01-25 09:51] LABS: Alanine Aminotransferase 18 U/L (0-31); Albumin Level 4.2 g/dL (3.5-5.0); Alkaline Phosphatase 104 U/L (39-117); Anion Gap 16 (12-20); Aspartate Amino Transferase 17 U/L (5-31); Bilirubin Direct 0.2 mg/dL (0.0-0.5); Bilirubin Total 0.6 mg/dL (0.0-1.0); Blood Urea Nitrogen 32 mg/dL (9-16); Carbon Dioxide 28 mmol/L (22-29); Chloride 100 mmol/L (96-108); Creatinine Clr Calc Pharmacy 21.5; Estimated Glomerular Filt Rate 32; Glucose Random 190 mg/dL (60-115); Magnesium 1.6 mg/dL (1.6-2.6); Potassium 3.8 mmol/L (3.3-5.1); Sodium 140 mmol/L (135-145); Total Protein 7.5 g/dL (6.5-8.0)
--- OUTSIDE RECORDS SUMMARY | 2025-01-25 09:53 | XMS_ITS | Clinical Summary ---
Author Organization [employer] Address [address] [place] [address] Care Team Providers Care Elementary Education Tutor Name Role Phone Louie Gutierrez MD Primary Care Provide r Allergies Active Allergy Reactions Criticality Noted Date Comments Sulfa Antibiotics 09/07/2022 Trimethoprim 09/07/2022 Medications calcium carbonate 1500 (600 Ca) MG tablet Take by mouth every 12 (twelve) hours. Active furosemide (Lasix) 40 MG tablet Take 1 tablet by mouth at bed time. Active hydrALAZINE (Apresoline) 25 MG tablet Take [...] complication, with long-term current use of insulin ([facility]) INJECT ONE PEN (= 4.5MG) SUBCUTANEOUSLY ONCE A WEEK DIRECTED 2 mL 11 024 Active Aspirin Adult Low Strength 81 MG EC tablet TAKE 1 TABLET BY MOUTH EVERY EVENING 90 tablet 3 024 Active TRUEplus Lancets 33G miscIndicatio ns:Type 2 diabetes mellitus without complication, with long-term current use of insulin ([facility]) TEST BLOOD SUGAR THREE TIMES DAILY DIRECTED 100 each 11 Active estradiol (Estrace) 0.1 MG/GM vaginal cream Insert 1 g into the vagina Once per day. 1g vaginally x 14d, then twice weekly thereafter 42.5 g 2024 Active Easy Touch Pen Britt 31G X 8 MM misc USE DIRECTED ONCE DAILY 100 each 1 Active insulin glargine (Lantus SoloStar) 100 UNIT/ML penIndication s:Type 2 diabetes mellitus without complication, with long-term current use of insulin ([facility]) Inject 16 Units under the [...] complication, with long-term current use of insulin ([facility]) TEST BLOOD SUGAR THREE TIMES [...] right leg She was recently admitted to [facility] 01/09-01/10 after she presented with cellulitis [...] Assessment & Plan (09/01/2023 9:29 AM EST): [facility] health care (V70.0). Mammogram: Mammo [...] Plan (09/01/2023 9:28 AM EST): Diagnosed by [facility]. Last seen by [facility] 08/30/2023 Diabetes mellitus, type II 05/11/2012 [...] last done on: 01/21/[address] Cotton (rate inserter) measured her IOP and was stable so [...] last done on: 01/21/[address] Cotton (rate inserter) measured her IOP and was stable so [...] Pt tells me she was vacationing in [place] and while there she was not following a diabetic diet. When reviewing her glucometer it was evident the time she was in [place] because her blood sugars were consistently high and now that she is back blood sugars have normalized Eye exam was last done on: 01/21/[address] Cotton (rate inserter) measured her IOP and was stable so [...] compliance with diet and meds while in [place] 3 months f/u Pt advised to: adhere [...] last done on: 01/21/[address] Cotton (rate inserter) measured her IOP and was stable so [...] last done on: 01/21/[address] Cotton (rate inserter) measured her IOP and was stable so [...] last done on: 01/21/[address] Cotton (rate inserter) measured her IOP and was stable so [...] last done on: 01/21/[address] Cotton (rate inserter) measured her IOP and was stable so [...] note pt had a cardiac cath at [facility] on 05/20/2009 There was NO angiographic evidence of CAD. seen in the past at [facility]. PREVIOUSLY ADDRESSED: THE INFORMATION BELOW HAS BEEN COPIED, PASTED AND UPDATED FROM PREVIOUS NOTES. Chest discomfort (R07.89). Resolved, pt ended up having an outpt stress test 05/23/2019 that was negative for ischemia. Of note pt had a cardiac cath 2008 at [facility] that was unremarkable. 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 Pt with a Hx. of ? Paget's disease of the bone, evaluated in the past by an principal security architect (Dr Banuelos) who treated her initially with Actonel but she could not tolerate subsequently she was given an infusion of Reclast and remains on Vitamin D pt was lost for f/u with Dr Banuelos. Last visit we scheduled a f/u appointment. Pt was seen by a different [employer] (Dr Ferrer)who review previous notes from Dr Banuelos and new bone scan, and lab data. She was seen on 11/08/2012nd based on his impression he DID NOT think pt had Paget's disease. She was last seen by [facility] Endocrinology on 02/16/2013 (Dr Ferrer) He diagnosed [...] note pt had a cardiac cath at [facility] on 05/20/2009 There was NO angiographic evidence of CAD. seen in the past at [facility]. PREVIOUSLY ADDRESSED: THE INFORMATION BELOW HAS BEEN COPIED, PASTED AND UPDATED FROM PREVIOUS NOTES. Chest discomfort (R07.89). Resolved, pt ended up having an outpt stress test 05/23/2019 that was negative for ischemia. Of note pt had a cardiac cath 2008 at [facility] that was unremarkable. 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 Pt with a Hx. of ? Paget's disease of the bone, evaluated in the past by an principal security architect (Dr Banuelos) who treated her initially with Actonel but she could not tolerate subsequently she was given an infusion of Reclast and remains on Vitamin D pt was lost for f/u with Dr Banuelos. Last visit we scheduled a f/u appointment. Pt was seen by a different [employer] (Dr Ferrer)who review previous notes from Dr Banuelos and new bone scan, and lab data. She was seen on 11/08/2012nd based on his impression he DID NOT think pt had Paget's disease. She was last seen by [facility] Endocrinology on 02/16/2013 (Dr Ferrer) He diagnosed [...] note pt had a cardiac cath at [facility] on 05/20/2009 There was NO angiographic evidence of CAD. seen in the past at [facility]. PREVIOUSLY ADDRESSED: THE INFORMATION BELOW HAS BEEN COPIED, PASTED AND UPDATED FROM PREVIOUS NOTES. Chest discomfort (R07.89). Resolved, pt ended up having an outpt stress test 05/23/2019 that was negative for ischemia. Of note pt had a cardiac cath 2008 at [facility] that was unremarkable. 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 Pt with a Hx. of ? Paget's disease of the bone, evaluated in the past by an principal security architect (Dr Banuelos) who treated her initially with Actonel but she could not tolerate subsequently she was given an infusion of Reclast and remains on Vitamin D pt was lost for f/u with Dr Banuelos. Last visit we scheduled a f/u appointment. Pt was seen by a different [employer] (Dr Ferrer)who review previous notes from Dr Banuelos and new bone scan, and lab data. She was seen on 11/08/2012nd based on his impression he DID NOT think pt had Paget's disease. She was last seen by [facility] Endocrinology on 02/16/2013 (Dr Ferrer) He diagnosed [...] note pt had a cardiac cath at [facility] on 05/20/2009 There was NO angiographic evidence of CAD. seen in the past at [facility]. PREVIOUSLY ADDRESSED: THE INFORMATION BELOW HAS BEEN COPIED, PASTED AND UPDATED FROM PREVIOUS NOTES. Chest discomfort (R07.89). Resolved, pt ended up having an outpt stress test 05/23/2019 that was negative for ischemia. Of note pt had a cardiac cath 2009 at [facility] that was unremarkable. 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 Pt with a Hx. of ? Paget's disease of the bone, evaluated in the past by an principal security architect (Dr Banuelos) who treated her initially with Actonel but she could not tolerate subsequently she was given an infusion of Reclast and remains on Vitamin D pt was lost for f/u with Dr Banuelos. Last visit we scheduled a f/u appointment. Pt was seen by a different [employer] (Dr Ferrer)who review previous notes from Dr Banuelos and new bone scan, and lab data. She was seen on 11/08/2012 based on his impression he DID NOT think pt had Paget's disease. She was last seen by [facility] Endocrinology on 02/16/2013 (Dr Ferrer) He diagnosed [...] note pt had a cardiac cath at [facility] on 05/20/2009 There was NO angiographic evidence of CAD. seen in the past at [facility]. PREVIOUSLY ADDRESSED: THE INFORMATION BELOW [...] pt had a cardiac cath 2008 at [facility] that was unremarkable. 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 Examination suggestive of this Plan: Nizoral shampoo, Neutrogenal [place] tar shampoo extra strength Referral to Dr [...] moderate stage (365.10), Chronic. Recently diagnosed by [facility]. last seen 03/10/2012. They recommended to continue to follow with dr. 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 Pt with a Hx. of ? Paget's disease of the bone, evaluated in the past by an principal security architect (Dr Banuelos) who treated her initially with Actonel but she could not tolerate subsequently she was given an infusion of Reclast and remains on Vitamin D pt was lost for f/u with Dr Banuelos. Last visit we scheduled a f/u appointment. Pt was seen by a different [employer] (Dr Ferrer)who review previous notes from Dr Banuelos and new bone scan, and lab data. She was seen on 11/08/2012nd based on his impression he DID NOT think pt had Paget's disease. She was last seen by [facility] Endocrinology on 02/16/2013 (Dr Ferrer) He diagnosed [...] LDL-C. Ciaran NATHAN et al. HITESH. 2013;310(19): 3372-9612 (http://education.'Rock' Your Paper/faq/XPH652) Chol/HDLC Ratio <5.0 (calc) 3.6 3.0 5.1??High?? [...] Encounters Date Type Department Care Team Description 01/25/2025 Telephone [facility] MEDICINE [address] [facility] [place] [address] Louie Gutierrez MD ER status check 01/23/2025 Orders Only GENERIC EXTERNAL DATA DEPARTMENT Provider, Generic External Data 01/17/2025 10:00 AM EDT Office Visit [facility] [place] [address] Louie Gutierrez MD Open wound of right lower leg, subsequent encounter (Primary Dx); Type 2 diabetes mellitus without complication, with long-term current use of insulin ([facility]); Age-related osteoporosis without current pathological fracture; Intertrigo; Rash 01/17/2025 Telephone [facility] [place] [address] Louie Gutierrez MD fyi 01/17/2025 Travel 01/17/2025 Telephone [facility] [place] [address] Louie Gutierrez MD CHART PREP 01/09/2025 Orders Only [facility] External Provider, [facility] 01/02/2025 2:30 PM EDT Office Visit [address] [address] Nelson Mead MD Cellulitis, unspecified cellulitis site (Primary Dx) 01/02/2025 Travel 01/02/2025 Telephone [facility] [place] [address] Louie Gutierrez MD Nurse Triage 01/01/[address] [address] Dena Christianson MD 12/21/2024 9:00 AM EDT Office Visit [facility] ADULT DENTAL [address] [place] [phone] Jennifer Fowler Dental plaque (Primary Dx); Periodontal disease; Missing teeth, acquired; Dental calculus 12/12/2024 8:40 AM EDT Office Visit [facility] WALK-IN CENTER [address] [place] [phone] Kolton Lloyd MD Injury of right lower extremity, initial encounter (Primary Dx); Abrasion of right lower extremity, initial encounter; Right leg pain; Acute right ankle pain; Hypertension, unspecified type; Encounter for immunization 12/12/2024 Travel 11/25/2024 Refill [facility] MEDICINE [address] [place] [address] Louie Gutierrez MD Type 2 diabetes mellitus without complication, with long-term current use of insulin ([facility]) 11/22/2024 Refill [facility] MEDICINE [address] [place] [address] Louie Gutierrez MD 11/04/2024 Refill [facility] MEDICINE [address] [place] [address] Roro Reynolds DO 11/02/2024 Orders Only [facility] External Provider, [facility] 10/26/2024 11:00 AM EST Office Visit [facility] [address] [place] [address] Amado Lynch MD Intertrigo 10/26/2024 Travel 10/26/2024 Telephone [facility] MEDICINE [address] [place] [address] oLuie Gutierrez MD 10/25/2024 Telephone [facility] [address] [place] [address] Louie Gutierrez MD telephone call from Last 3 [...] Care Team (Late st Contact Info) Description 01/31/2025 11:00 AM EDT Office Visit [facility] MEDICINE [address] [place] [address] Louie Gutierrez MD [address] [place] [address] 07/09/2025 10:00 AM EST Office Visit [facility] ADULT DENTAL [address] [place] [address] Jennifer Fowler [address] [place] [address] Health Maintenance Due Date Last Done Comments [...] Procedure Name Priority Date/Time Associated Diagnosis Comments GLUCOSE, WHOLE BLOOD Routine 01/23/2025 2:58 PM EDT LACTIC ACID LAB USE ONLY Routine 01/23/2025 2:09 PM EDT GRAM STAIN Routine 01/23/2025 12:33 PM EDT SED RATE BY MODIFIED WESTERGREN Routine 01/23/2025 11:48 AM EDT C-REACTIVE PROTEIN Routine 01/23/2025 11 :48 AM EDT LACTIC ACID Routine 01/23/2025 11:48 AM EDT MAGNESIUM Routine 01/23/2025 11:48 AM EDT COMPREHENSIVE METABOLIC PANEL Routine 01/23/2025 11:48 AM EDT CBC WITH AUTO DIFFERENTIAL Routine 01/23/2025 11:48 AM EDT BLOOD CULTURE (SECOND) Routine 11:48 AM EDT BLOOD CULTURE (FIRST) Routine 01/23/2025 11:48 AM EDT XR TIBIA FIBULA 2 VIEWS RIGHT Routine 01/23/2025 11:25 AM EDT WOUND CARE Routine 01/17/2025 10:19 AM EDT Open wound of right lower leg, subsequent encounter POCT GLYCATED HEMOGLOBIN, TOTAL Routine 01/17/2025 9:45 AM EDT Type 2 diabetes mellitus without complication, with long-term current use of insulin ([facility]) POCT GLUCOSE Routine 01/17/2025 9:40 AM EDT Type 2 diabetes mellitus without complication, with long-term current use of insulin ([facility]) US VENOUS DUPLEX LE RT [...] with long-term current use of insulin ([facility]) BI MAMMOGRAM SCREENING TOMOSYNTHESIS BILATERAL Routine 09/13/2024 [...] Relevant to Health Maintenance Results * (ABNORMAL) Glucose, Whole Blood (01/23/2025 2:58 PM EDT) Glucose, Whole Blood 133(H) 60 - 115 mg/dL [facility] Comment:METER #: [id number] 01/23/2025 2:58 PM EDT 01/23/2025 3:01 PM EDT Generic External Data Provider LAB BLOOD ORDERAB LES Final Result Performing Organization Address City/[facility]/ZIP Co de Phone Number [facility] [address] [place] [phone] * Lactic Acid (01/23/2025 2:09 PM EDT) Lactic Acid 1.8 0.5 - 2.0 mmol/L [facility] 01/23/2025 2:09 PM EDT 01/23/2025 2:11 PM EDT Generic External Data Provider LAB BLOOD ORDERAB LES Final Result Performing Organization Address [facility]/ZIP Co de Phone Number [facility] [address] [place] [phone] * Gram stain (01/23/2025 12:33 PM EDT) 01/23/2025 12:3 3 PM EDT 01/23/2025 12:38 PM EDT Comment:Leg Rt Narrative [facility] - 01/25/2025 8:57 AM EDT Gram stain results: 1+ polys 2+ epithelial cells 1+ Gram-positive cocci Staphylococcus epidermidis Quant Org ID 2+ Staphylococcus epidermidis: Clindamycin <=0.25(S) Staphylococcus epidermidis: Erythromycin >=8(R) Staphylococcus epidermidis: Levofloxacin <=0.12(S) Staphylococcus epidermidis: Oxacillin >=4(R) Staphylococcus epidermidis: Penicillin-G >=0.5(R) Staphylococcus epidermidis: Tetracycline >=16(R) Staphylococcus epidermidis: Trimethoprim/Sulfamethoxazole <=10(S) Staphylococcus epidermidis: Vancomycin 2(S) Specimen Source: Leg Right us Generic External Data Provider LAB MICROBIOLOGY - GENERAL ORDERABLES Final Result [facility] [address] [place] [address] [phone] * (ABNORMAL) CBC auto differential (01/23/2025 11:48 AM EDT) Only the most recent of2 resultswithin the time period is included. White Blood Count 10.5 4.8 - 10.8 X10*3/uL [facility] Red Blood Count 4.40 4.20 - 5.50 X10*6/uL [facility] Hemoglobin 13.5 12.0 - 16.0 g/dl [facility] Hematocrit 39.3 37.0 - 47.0 % [facility] Mean Corpuscular Volume 89.3 80.0 - 98.0 fL [facility] Mean Corpuscular Hemoglobin 30.7 27.0 - 33.0 pg [facility] Mean Corpuscular HGB Conc 34.4 31.0 - 35.0 g/dl [facility] Red Cell Distribution Width 13.3 11.0 - 16.0 % [facility] Platelet Count 309 160 - 400 X10*3/uL [facility] Mean Platelet Volume 9.5 9.4 - 12.3 fL [facility] Neutrophils Percent Auto 67.3 45 - 73 % [facility] Imm Gran Pct Auto 0.6(H) 0.0 - 0.4 % [facility] Lymphocytes Percent Auto 21.0 20 - 40 % [facility] Monocytes Percent Auto 7.0 2 - 11 % [facility] Eosinophils Percent Auto 3.2 0 - 4 % [facility] Basophils Percent Auto 0.9 0 - 2 % [facility] NRBC Pct Auto 0.0 0.0 - 0.2 /100WBC [facility] Neutrophils Absolute Auto 7.1 2.0 - 8.3 x10*3/uL [facility] Imm Gran Abs Auto 0.06(H) 0.00 - 0.03 X10*3/uL [facility] Lymphocytes Absolute Auto 2.2 1.2 - 4.9 X10*3/uL [facility] Monocytes Absolute Auto 0.7 0.1 - 1.2 X10*3/uL [facility] Eosinophils Absolute Auto 0.3 0.0 - 0.4 X10*3/uL [facility] Basophils Absolute Auto 0.1 0.0 - 0.2 X10*3/uL [facility] NRBC Abs Auto 0.000 0.0 - 0.012 X10*3/uL [facility] 01/23/2025 11:4 8 AM EDT 01/23/2025 11:56 AM EDT Generic External Data Provider LAB BLOOD ORDERAB LES Final Result Performing Organization Address [facility] Co de Phone Number [facility] [address] [place] [phone] * Sed Rate by Modified Rudyergren (01/23/2025 11:48 AM EDT) Erythrocyte Sedimentation Rate 13 0 - 20 MM/HR [facility] Comment:Patients with polycy themia and many hemoglobin abnormalitiesmay have depressed sed rates whereas patients with anemiamay have elevated sed rates. 01/23/2025 11:4 8 AM EDT 01/23/2025 12:33 PM EDT Generic External Data Provider LAB BLOOD ORDERAB LES Final Result Performing Organization Address [facility] Co de Phone Number [facility] [address] [place] [phone] * (ABNORMAL) C-reactive Protein (01/23/2025 11:48 AM EDT) C Reactive Protein 0.52(H) < or = 0.50 mg/dL [facility] 01/23/2025 11:4 8 AM EDT 01/23/2025 11:56 AM EDT Generic External Data Provider LAB BLOOD ORDERAB LES Final Result Performing Organization Address [facility] de Phone Number [facility] [address] [place] [phone] * Magnesium (01/23/2025 11:48 AM EDT) Magnesium 1.7 1.6 - 2.6 mg/dL [facility] 01/23/2025 11:4 8 AM EDT 01/23/2025 11:56 AM EDT Generic External Data Provider LAB BLOOD ORDERAB LES Final Result Performing Organization Address [facility] Phone Number [facility] [address] [place] [phone] * (ABNORMAL) Lactic Acid (01/23/2025 11:48 AM EDT) Pathologist [facility] Lactic Acid 3.0(HH) 0.5 - 2.0 mmol/L [facility] Comment:Critical value for t est(s): LACTA Results called to bigg back by: MARKUS Person calling: LEAT Date: 01/23/25Time: 1227 01/23/2025 11:4 8 AM EDT 01/23/2025 11:56 AM EDT Generic External Data Provider LAB BLOOD ORDERAB LES Final Result Performing Organization Address [facility] de Phone Number [facility] [address] [place] [phone] * (ABNORMAL) Comprehensive Metabolic Panel (01/23/2025 11:48 AM EDT) Sodium 138 135 - 145 mmol/L [facility] Potassium 3.7 3.3 - 5.1 mmol/L [facility] Chloride 105 96 - 108 mmol/L [facility] Carbon Dioxide 23 22 - 29 mmol/L [facility] Anion Gap 14 12 - 20 [facility] Urea Nitrogen (BUN) 23(H) 9 - 16 mg/dL [facility] Creatinine, Serum 0.97 0.5 - 1.4 mg/dL [facility] Creatinine Clr Calc Pharmacy 43.5 [facility] Comment:Provided height and weight: 165.1 cm,71.6 kg.eGFR (calculated from the MDRD study equation) and eCrCl(calculated from the Cockcroft-Gault equation) are based ondifferent parameters and may not yield comparable results.If eCrCl result is absurd, please check patient'sheight/weight. Estimated Glomerular Filt Rate 55 [facility] Comment:Chronic Kidney Disea se: Estimated GFR < 60 mL/min/[id number] Kidney Disease: Estimated GFR < 15 mL/min/1.73m2 Glucose 306(H) 60 - 115 mg/dL [facility] Calcium 9.5 8.4 - 10.2 mg/dL [facility] Bilirubin, Total 0.3 0.0 - 1.0 mg/dL [facility] Aspartate Amino Transferase 16 5 - 31 U/L [facility] Alanine Aminotransferase 20 0 - 31 U/L [facility] Total Protein 7.0 6.5 - 8.0 g/dL [facility] Albumin Level 3.9 3.5 - 5.0 g/dL [facility] Alkaline Phosphatase 103 39 - 117 U/L [facility] 01/23/2025 11:4 8 AM EDT 01/23/2025 11:56 AM EDT us Generic External Data Provider LAB BLOOD ORDERAB LES Final Result [facility] [address] [place] [phone] [phone] * XR Tibia Fibula 2 Views Right (01/23/2025 11:25 AM EDT) Only the most recent of3 resultswithin the time period is included. Anatomical Region Laterality Modality Lower Extremities, Lower Leg Right Rad iographic Imaging 01/23/2025 11:2 5 AM EDT Narrative 01/23/2025 12:31 PM EDT ? [facility] ?[address] ?[place] [address] ?XRay Report ? Signed ? Patient: Rodriguez,Yusra J ?MR#: [id number] ?? 3 ? : 1940 ?Acct:[id number] ? Age/Sex: 84 / F ?ADM Date: 01/23/25 ? Loc: HO.ED ? Attending Dr: ? Ordering Physician: Goldie Otero ?? Date of Service: 01/23/25 ?? Procedure(s): XR tibia fibula RT 2V ?? Accession Number(s): [id number] ? cc: Louie Narayanan MD; Goldie Otero ? EXAMINATION: ?? XR TIBIA AND FIBULA, RIGHT ? CLINICAL INFORMATION: ?? overlying wound, DM, r/o osteo ? COMPARISON: ?? January 09, 2025 ? TECHNIQUE: ?? AP and lateral views of the right tibia and fibula were obtained. ? FINDINGS: ?? There is no focal osteopenia or cortical erosions. ?? There is no periosteal new bone formation. ?? There is no soft tissue gas. ? XR/XR tibia fibula RT 2V ?? IMPRESSION: ?? Unremarkable x-rays of the right lower leg. MRI is more sensitive to ?? detect osteomyelitis. ? Electronically signed by: ??Lloyd Rajan MD ??01/23/2025 12:28 PM EDT ?? RP ? Dictated By: ?Lloyd Rajan MD ? Signed By: ?<Electronically signed by Lloyd Rajan MD in OV> ?01/23/25 1228 ? DD/ 1125 ? TD/TT: 01/23/25 1150 ? Treatment Counselor: ? Procedure Note Ralph Eubanks - 01/23/2025 [facility] [address] [place] [address] XRay Report Signed Patient: Yusra Rodriguez JMR#: [id number] 3 : 2Acct:[id number] Age/Sex: 84 / FADM Date: 01/23/25 Loc: HO.ED Attending Dr: Ordering Physician: Goldie Otero Date of Service: 01/23/25 Procedure(s): XR tibia fibula RT 2V Accession Number(s): [id number] cc: Louie Narayanan MD; Goldie Otero EXAMINATION: XR TIBIA AND FIBULA, RIGHT CLINICAL INFORMATION: overlying wound, DM, r/o osteo COMPARISON: January 09, 2025 TECHNIQUE: AP and lateral views of the right tibia and fibula were obtained. FINDINGS: There is no focal osteopenia or cortical erosions. There is no periosteal new bone formation. There is no soft tissue gas. XR/XR tibia fibula RT 2V IMPRESSION: Unremarkable x-rays of the right lower leg. MRI is more sensitive to detect osteomyelitis. Electronically signed by: Lloyd Rajan MD 01/23/2025 12:28 PM EDT RP Dictated By: Lloyd Rajan MD Signed By: <Electronically signed by Lloyd Rajan MD in OV> 01/23/25 1228 DD/ 1125 TD/TT: 01/23/25 1150 Treatment Counselor: [facility] External Provider IMG XR PROCEDURES Final Result * Wound Care (01/17/2025 10:19 AM EDT) [...] 2in x 0.5in. PCP requesting dry dressing. [id number] ABD pad applied, wrapped with 3inx4.1yd stretch [...] - 6.0 % QC Media Lot # [id number] Lot# Expiration Date ,027 Blood 01/17/2025 9:45 AM EDT us Louie Whalen MD POINT OF CARE TEST EN TER/EDIT ORDERABLES Final Result * POCT Glucose (01/17/2025 9:40 AM EDT) Glucose Blood, POC 128 60 - 200 mg/dL QC Media Lot # [id number] Lot# Expiration Date 848 Blood Capillary blood specimen / Unknown 01/17/2025 9:40 AM EDT us Louie Whalen MD POINT OF CARE TEST EN TER/EDIT ORDERABLES Final Result * US VENOUS DUPLEX LE RT (01/09/2025 4:15 PM EDT) Anatomical Region Laterality Modality Abdomen Ultrasound 01/09/2025 4:15 PM EDT Narrative 01/09/2025 4:40 PM EDT ? [facility] ?[address] ?[place] [address] ? Ultrasound Report ? Signed ? Patient: Rodriguez,Yusra J ?MR#: [id number] ?? 3 ? : 1940 ?Acct:[id number] ? Age/Sex: 84 / F ?ADM Date: 01/09/25 ? Loc: HO.ED ? Attending Dr: ? Ordering Physician: Danielle Saldaña ?? Date of Service: 01/09/25 ?? Procedure(s): US venous duplex LE RT ?? Accession Number(s): [id number] ? cc: Louie Narayanan MD; Danielle Saldaña [...] DD/ 1615 ? TD/TT: 01/09/25 1619 ? Treatment Counselor: ? Procedure Note Ralph Eubanks - 01/09/2025 [facility] [address] [place] [address] Ultrasound Report Signed Patient: Damián Rodriguezona JMR#: [id number] 3 : 2Acct:[id number] Age/Sex: 84 / FADM Date: 01/09/25 Loc: HO.ED Attending Dr: Ordering Physician: Danielle Saldaña Date of Service: 01/09/25 Procedure(s): US venous duplex LE RT Accession Number(s): [id number] cc: Louie Narayanan MD; Danielle Saldaña EXAMINATION: [...] Caleb Medina MD 01/09/2025 04:38 PM EDT RP Dictated By: Caleb Medina MD Signed By: <Electronically signed by Caleb Medina MD in OV> 01/09/25 1638 DD/ 1615 TD/TT: 01/09/25 1619 Treatment Counselor: us [facility] External Provider IMG US PROCEDURES Final Result * B Type Natriuretic Peptide (BNP) (01/09/2025 4:02 PM EDT) B Type Natriuretic Peptide 35 <100 pg/mL [facility] 01/09/2025 4:02 PM EDT 01/09/2025 4:05 PM EDT Generic External Data Provider LAB BLOOD ORDERAB LES Final Result [facility] [address] [place] [phone] * Hepatic Function Panel (01/09/2025 4:02 PM EDT) Pathologist [facility] Bilirubin, Total 0.3 0.0 - 1.0 mg/dL [facility] Bilirubin, Direct 0.1 0.0 - 0.5 mg/dL [facility] Aspartate Amino Transferase 15 5 - 31 U/L [facility] Alanine Aminotransferase 22 0 - 31 U/L [facility] Total Protein 7.4 6.5 - 8.0 g/dL [facility] Albumin Level 4.0 3.5 - 5.0 g/dL [facility] Alkaline Phosphatase 99 39 - 117 U/L [facility] 01/09/2025 4:02 PM EDT 01/09/2025 4:05 PM EDT us Generic External Data Provider LAB BLOOD ORDERAB LES Final Result [facility] [address] [place] [phone] * (ABNORMAL) Basic Metabolic Panel (01/09/2025 4:02 PM EDT) Pathologist [facility] Sodium 137 135 - 145 mmol/L [facility] Potassium 3.7 3.3 - 5.1 mmol/L [facility] Chloride 103 96 - 108 mmol/L [facility] Carbon Dioxide 26 22 - 29 mmol/L [facility] Anion Gap 12 12 - 20 [facility] Urea Nitrogen (BUN) 22(H) 9 - 16 mg/dL [facility] Creatinine, Serum 0.97 0.5 - 1.4 mg/dL [facility] Creatinine Clr Calc Pharmacy 44.5 [facility] Comment:Provided height and weight: 167.64 cm,71.4 kg.eGFR (calculated from the MDRD study equation) and eCrCl(calculated from the Cockcroft-Gault equation) are based ondifferent parameters and may not yield comparable results.If eCrCl result is absurd, please check patient'sheight/weight. Estimated Glomerular Filt Rate 55 [facility] Comment:Chronic Kidney Disea se: Estimated GFR < 60 mL/min/1.17m0Izpsvz Kidney Disease: Estimated GFR < 15 mL/min/1.73m2 Glucose 246(H) 60 - 115 mg/dL [facility] Calcium 9.3 8.4 - 10.2 mg/dL [facility] 01/09/2025 4:02 PM EDT 01/09/2025 4:05 PM EDT us Generic External Data Provider LAB BLOOD ORDERAB LES Final Result [facility] [address] [place] [address] [phone] * US RENAL BI (11/02/2024 3:52 PM EDT) Anatomical Region Laterality Modality Abdomen Ultrasound 11/02/2024 3:52 PM EDT Narrative 11/02/2024 3:53 PM EDT ? [facility] ?[address] ?[place] [address] ? Ultrasound Report ? Signed ? Patient: Yusra Rodriguez ?MR#: [id number] ?? 3 ? : 1940 ?Acct:[id number] ? Age/Sex: 84 / F ?ADM Date: 11/02/24 ? Loc: HO.US ? Attending Dr: Suad ROJAS ? Ordering Physician: Suad Ortega ?? Date of Service: 11/02/24 ?? Procedure(s): US renal BI ?? Accession Number(s): [id number] ? cc: Louie Narayanan MD; Suad OrtegaBC ? CLINICAL HISTORY: N20.0 - Calculus of [...] ? 11/02/241551 ? DD/ 51 ? TD/TT: 11/02/24 1552 ? Treatment Counselor: ? Procedure Note Donnubia, Ralph - 11/02/[address] [address] Ultrasound Report Signed Patient: Yusra Rodriguez JMR#: [id number] 3 : 1940cct:[id number] Age/Sex: 84 / FADM Date: 11/02/24 Loc: .US Attending Dr: Suad ROJAS Ordering Physician: Suad Ortega Date of Service: 11/02/24 Procedure(s): US renal BI Accession Number(s): [id number] cc: Louie Narayanan MD; Suad Ortega CLINICAL [...] in OV> 11/02/241551 DD/ 51 TD/TT: 11/02/241551 Treatment Counselor: us [facility] External Provider IMG US PROCEDURES Final Result * Collagen Cross-Linked N-Telopeptide (NTx), U (11/02/2024 9:13 AM EDT) N Telopetide (NTx) 29 see note [facility] Comment:Result Units: nM BCE /mM creatPremenopausal Females: 4 - 64 nM BCE/mM creatResults are primarily used for monitoring theresponse to therapy. A value within thepremenopausal range does not rule out osteoporosisnor the need for therapyUnits of Measure: nM BCE/mM creat CREATININE, RANDOM URINE 144 20 - 275 mg/dL [facility] Comment:THIS TEST WAS PERFOR MED AT:[employer] [id number] [place] [id number] FRITZ MD,PHD 11/02/2024 9:13 AM EDT 11/02/2024 10:37 AM EDT us Generic External Data Provider LAB URINE ORDERAB LES Final Result Performing Organization Address [facility]/ZIP Co de Phone Number [facility] [address] [place] [phone] * Albumin, Random Urine W/Creatinine (10/26/2024 8:36 AM EST) Pathologist [facility] Creatinine, Urine 86.79 mg/dL [facility] Microalbumin Urine 9.0 mg/L [facility] Microalbum Creatinine Ratio Ur 10.3 <30 ug/mg cr [facility] Comment:Albumin/Creatinine R atio Reference Ranges: Normal: < 30 ug/mg creatinine Microalbuminuria: 30 - 300 ug/mg creatinineClinical Albuminuria: > 300 ug/mg creatinine Urine (Urine, Random) 10/26/2024 8:36 AM EST 10/26/2024 8:54 AM EST us Louie Whalen MD LAB URINE ORDERABLES Final Result Performing Organization Address [facility]/ZIP Co de Phone Number [facility] [address] [place] [phone] * BI Mammogram Screening Tomosynthesis Bilateral (09/13/2024 8:38 AM EST) Anatomical Region Laterality Modality Breast Bilateral Mammography 09/13/2024 8:38 AM EST Narrative 09/21/2024 4:45 PM EST ? [facility] ? [address] ?[place] [address] ? Mammography Report ? Signed ? Patient: Rodriguez,Yusra J ?MR#: [id number] ?? 3 ? : 1940 ?Acct:[id number] ? Age/Sex: 83 / F ?ADM Date: 09/13/24 ? Loc: HO.MAMMO ? Attending Dr: Louie Narayanan MD ? Ordering Physician: Louie Narayanan MD ?Resu ?? lts: 1Negative ? Date of Service: 09/13/24 ?Follow Up: 1 Year From Orig ?? inal Mammogram ? Procedure(s): MM tomosynthesis screening BI ?? Accession Number(s): [id number] ? cc: Louie Narayanan MD ? EXAMINATION: [...] 1642 ? DD/ ? TD/TT: 09/13/2453 ? Treatment Counselor: ? Procedure Note Raimundo, Image - 09/21/2024 [place] [facility] [address] [place] [address] Mammography Report Signed Patient: Yusra Rodriguez JMR#: [id number] 3 : 2Acct:[id number] Age/Sex: 83 / FADM Date: 09/13/24 Loc: HO.MAMMO Attending Dr: Louie Narayanan MD Ordering Physician: Louie Narayanan MDResu lts: 1Negative Date of Service: 09/13/24Follow Up: 1 Year From Orig inal Mammogram Procedure(s): MM tomosynthesis screening BI Accession Number(s): [id number] cc: Louie Narayanan MD EXAMINATION: MM SCREENING [...] Judi Navarro DO 09/21/2024 04:42 PM EST Dictated By: Judi Navarro DO Signed By: <Electronically signed by Judi Navarro DO in OV> 09/21/24 1642 DD/ 0838 TD/TT: 09/13/24 0853 Treatment Counselor: us Louie Whalen MD IMG BI PROCEDURES Fin al Result * (ABNORMAL) Lipid Panel with Reflex to Direct LDL (02/11/2023 9:28 AM EDT) Cholesterol, Total 175 <200 mg/dL [facility] HDL Cholesterol 48(L) > OR = 50 mg/dL [facility] Triglycerides 263(H) <150 mg/dL [facility] Comment: If a non-fasting specimen was collected, consider repeat triglyceride testing on a fasting specimen if clinically indicated. Simón et al. J. of Clin. Lipidol. 2015;9:129-169. LDL Cholesterol 92 mg/dL (calc) [facility] Comment: Reference range: <100 Desirable range <100 mg/dL for primary prevention; ?? <70 mg/dL for patients with CHD or diabetic patients with > or = 2 CHD risk factors. LDL-C is now calculated using the Ciaran-[place] calculation, which is a validated novel method providing better accuracy than the Friedewald equation in the estimation of LDL-C. Ciaran SS et al. HITESH. 2013;310(19): 4382-8088 (http://education.'Rock' Your Paper/faq/RWL684) Chol/HDLC Ratio 3.6 <5.0 (calc) [facility] Non-HDL Cholesterol 127 <130 mg/dL (calc) [facility] Comment: For patients with diabetes plus 1 major ASCVD risk factor, treating to a non-HDL-C goal of <100 mg/dL (LDL-C of <70 mg/dL) is considered a therapeutic option. 02/11/2023 9:28 AM EDT 02/11/2023 9:29 AM EDT Narrative [facility] - 02/11/2023 7:45 PM EDT FASTING:NO FASTING: NO Louie Whalen MD LAB BLOOD ORDERABLES Final Result [facility] [address], [place] [address] [facility] [place] [facility] [address] [place] [phone] from Last 3 Months or Most Recently Relevant to Health Maintenance Insurance DUAL COMPLETE DENTAL - [facility] [employer] Care Teams Elementary Education Tutor Relationship Specialty Start Date End Date Louie Gutierrez MD [address] [place] [phone] PCP - General Internal Medicine 06/13/13 [place] [facility] 08/09/24
[2025-01-25 10:01] LABS: Troponin-I High Sensitivity 6.5 ng/L (<3.5-17.0)
[2025-01-25] MEDS: Lactated Ringers 1,000 ML 999 ML IV (10:08)
[2025-01-25 11:44] LABS: Appearance Urine Cloudy; Color Urine Dark Yellow; Glucose Urine UA 100 mg/dL (Negative); Leukocyte Esterase Urine Trace (Negative); Nitrite Urine Negative (Negative); Specific Gravity - Urine 1.025 (1.005-1.025); UMIC TRIGGER UACC YES; Urine Blood Negative (Negative); Urine Ketones 15 mg/dL (Negative); Urine Protein 100 (2+) mg/dL (Neg-Trace)
[2025-01-25 12:02] LABS: Bacteria Urine Trace (None Seen); Granular Casts Urine Present; Hyaline Casts Urine >20 /LPF (0-2); RBC Urine 0-2 /HPF (0-2); WBC Urine 0-5 /HPF (0-5)
[2025-01-25 12:25] LABS: Creatinine Clr Calc Pharmacy 26.9; Estimated Glomerular Filt Rate 42
== END 2025-01-25 13:00 | disposition home or self-care (01) ==
PROVIDERS: Emergency Provider Emergency Medicine
DX: S09.90XA Unspecified injury of head, initial encounter (principal); R42 Dizziness and giddiness; R51.9 Headache, unspecified; M54.2 Cervicalgia; M25.512 Pain in left shoulder; M79.10 Myalgia, unspecified site; I10 Essential (primary) hypertension; R06.02 Shortness of breath; N17.9 Acute kidney failure, unspecified; X58.XXXA Exposure to other specified factors, initial encounter; W01.0XXA Fall on same level from slipping, tripping and stumbling without subsequent striking against object, initial encounter; Y93.9 Activity, unspecified; Y92.9 Unspecified place or not applicable; Y99.8 Other external cause status; Z79.01 Long term (current) use of anticoagulants; Z86.718 Personal history of other venous thrombosis and embolism; Z79.899 Other long term (current) drug therapy
CPT/HCPCS: 36415; 70450; 72125; 73030; 80048; 80076; 81001; 82565; 83735; 84484; 85025; 96360; 99284; 99285; J7120

== ENCOUNTER → 2025-01-25 08:54 | Outpatient (BNV) | payer OTHER, SELFPAY | PROVIDERS: Emergency Provider Emergency Medicine; Visit Provider Radiology Diagnostic Radiology | DX: M47.812 Spondylosis without myelopathy or radiculopathy, cervical region (principal); S09.90XA Unspecified injury of head, initial encounter; M19.012 Primary osteoarthritis, left shoulder | CPT/HCPCS: 70450; 72125 ==

== ENCOUNTER 2025-01-31 10:58 | Outpatient (REF) | payer OTHER, SELFPAY ==
--- OUTSIDE RECORDS SUMMARY | 2025-01-31 12:56 | XMS_ITS | Encounter Summary ---
Author Organization [employer] Address [address] [facility] 7 [place] [address] Care Team Providers Care Information Resources Manager Name Role Phone Louie Gutierrez MD Primary Care Provide r Reason for Visit * Reason Onset Date Comments ER status check 01/25/2025 Encounter Details Date Type Department Care Team ([facility] [place] st Contact Info) Description 01/25/2025 Telephone [facility] [address] [place] [address] Louie Gutierrez MD [address] [place] [address] ER status check Social History Tobacco Use Types Packs/Day Years [...] encounter Miscellaneous Notes * Telephone Encounter - Ester Saleh RN - 01/28/2025 11:17 AM EDT Pt was evaluated in [facility] 01/25/25 Dx: KRISTEN, head injury. CT normal, labs reassuring. Pt was given IVfluids for dehydration and recommended to hold BP meds untl Tuesday and hold lasix until Tuesday. T/Jig And Fixture Repairer pt for status check via [facility] Ted #[id number]. No answer, v/m left to return call to Green team nurses. Appt detail updated for upcoming f/u scheduled with pcp. * Telephone Encounter - Patricia Lassiter RN - 01/25/2025 8:44 AM EDT Received call from security Amanda. Pt was sent to the ER this AM before clinic opened due to reported falls at home, dizziness on site, feeling unwell. She had been scheduled for wound check today. Will task to status check and reschedule as needed. Pt scheduled with Dr Hines on 01/31/25. documented in this encounter Plan of Treatment Upcoming Encounters Date Type Department Care Team (Late st Contact Info) Description 02/01/2025 9:30 AM EDT Office Visit [facility] [address] [place] [address] Amado Lynch MD [address] [place] [address] 02/05/2025 11:00 AM EDT Office Visit [facility] [address] [place] [address] Louie Gutierrez MD [address] [place] [address] 07/09/2025 10:00 AM EST Office Visit [facility] [address] [place], [place] [phone] Ulises Fowleraris [address] [place], [place] [phone] documented as of this encounter Visit Diagnoses Not on filedocumented in this encounter Additional Health Concerns Assessment Noted Time PHQ-9 Depression Total Score: 1 05/31/20 24 1:55 PM EDT documented as of this encounter Care Teams Information Resources Manager Relationship Specialty Start Date End Date Louie Gutierrez MD [address] [place] [address] [phone] PCP - General Internal [facility] documented as of this encounter
[2025-01-31 13:04] LABS: Rheumatoid Factor 13.3 IU/mL (<15.0)
[2025-01-31 13:26] LABS: HBS Num1 0.29 mIU/mL (0-7.99); HIV AB/AG Nonreactive (Nonreactive); HIV Num 1 0.06 S/CO (0.00-0.99); Hepatitis B Core Antibody Nonreactive (Nonreactive); Hepatitis B Surface Antigen Negative (Negative); ~Hepatitis B Surface Antibody NONREACTIVE (Nonreactive); ~Hepatitis C Antibody Nonreactive (Nonreactive)
[2025-01-31 14:14] LABS: Appearance Urine Clear; Color Urine Yellow; Glucose Urine UA 100 mg/dL (Negative); Leukocyte Esterase Urine Negative (Negative); Nitrite Urine Negative (Negative); PH 5.5 (5.0-9.0); Specific Gravity - Urine 1.025 (1.005-1.025); Urine Blood Negative (Negative); Urine Ketones Trace mg/dL (Negative); Urine Protein Negative (Neg-Trace)
[2025-01-31 14:17] LABS: Bacteria Urine None Seen (None Seen); Hyaline Casts Urine 0-2 /LPF (0-2); RBC Urine 0-2 /HPF (0-2); Squamous Epithelial Cell Urine 0-2 /HPF (0-2); WBC Urine 0-5 /HPF (0-5)
[2025-02-01 16:34] LABS: Myeloperoxidase Antibody <1.0 AI; Proteinase 3 PR3 Antibodies <1.0 AI
[2025-02-02 01:58] LABS: Complement C3 155 mg/dL
[2025-02-04 11:24] LABS: Anti Nuclear Antibody Screen NEGATIVE (NEGATIVE)
[2025-02-04 17:38] LABS: Prot Elec - Albumin 4.3 g/dL (3.8-4.8); Prot Elec - Alpha1 0.3 g/dL (0.2-0.3); Prot Elec - Alpha2 0.8 g/dL (0.5-0.9); Prot Elec - Beta 1 0.5 g/dL (0.4-0.6); Prot Elec - Beta 2 0.5 g/dL (0.2-0.5); Prot Elec - Gamma 1.1 g/dL (0.8-1.7); Prot Elec - Total Protein 7.6 g/dL (6.1-8.1)
[2025-02-05 16:54] LABS: Complement Total CH50 57 U/mL (31-60)
[2025-02-06 21:18] LABS: Cryoglobulin, Qual Negative (Negative)
== END 2025-01-31 10:59 | disposition home or self-care (01) ==
LOC: HO.HHCL 10:58
PROVIDERS: PCP Internal Medicine; Visit Provider Internal Medicine
DX: L30.9 Dermatitis, unspecified (principal)
CPT/HCPCS: 36415; 81001; 82595; 84165; 86021; 86038; 86160; 86162; 86431; 86704; 86706; 86803; 87070; 87205; 87340; 87389

== ENCOUNTER 2025-05-23 10:13 | Outpatient (REF) | payer OTHER, SELFPAY ==
--- OUTSIDE RECORDS SUMMARY | 2025-05-23 09:15 | XMS_ITS | Encounter Summary ---
Author Organization [employer] Address [address] [facility] [address] [place] [address] Care Team Providers Care Mica Miner Name Role Phone Louie Gutierrez MD Primary Care Provide r Reason for Referral * Consultation (Routine) - Authorized Specialty Diagnoses / Procedures Referred By Contac t Referred To Contact Endocrinology Diagnoses Type 2 diabetes mellitus without complication, with long-term current use of insulin (HCC) Louie Gutierrez MD [address] [place] [address] Phone: tel: fax: [facility] [address] [place], [place] Phone: tel: fax: Referral ID Status Reason Start Date Expiration Date Visits Requested Visits Authorized [id number] Authorized Specialty Services Required 05/23/2025 05/23/2026 1 1 Reason for Visit * Reason Comments Follow-up Encounter Details Date Type Department Care Team (Late st Contact Info) Description 05/23/2025 9:15 AM EDT Office Visit [facility] [address] [place], [place] [id number] Louie Gutierrez MD [address] [place], [place] [id number] Type 2 diabetes mellitus without complication, with long-term current use of insulin (HCC) (Primary Dx); Mixed hyperlipidemia; Open-angle glaucoma, unspecified glaucoma stage, unspecified laterality, unspecified open-angle glaucoma type; Spongiotic dermatitis; Primary hypertension; Intertrigo; Preventative health care; Encounter for immunization Social History Tobacco Use [...] Sign Reading Time Taken Comments Blood Pressure 139/86 05/23/2025 9:48 AM EDT Pulse 64 05/23/2025 9:10 AM EDT Temperature 36.2 C (97.2 F) 05/23/2025 9:10 AM EDT Respiratory Rate 21 05/23/2025 9:10 AM EDT Oxygen Saturation - - Inhaled Oxygen Concentration - - Weight 71.8 kg (158 lb 6.4 oz) 05/23/2025 9:10 A M EDT Height 152.4 cm (5') 05/23/2025 9:10 AM EDT Body Mass Index 30.94 05/23/2025 9:10 AM EDT documented in this encounter Miscellaneous Notes * Assessment & Plan Note - Louie Whalen MD - 05/23/2025 8:45 AM EDT Associated Problem(s): Preventative health care Mammogram: Mammo 09/21/2024 Normal. Pap Smear: -wnl 2002, 2003 and 2004 with h/o hysterectomy and no abnormal paps, , no need for further pap screening Colonoscopy: 03/09/2019 showed a tubular adenoma h/o tubular adenoma 2005, as well . She was seen byGI in 2021 who recommended a repeat Colonoscopy but patient did not do it. Pt today REFUSES to haveit done, discussed with her the risk of missing malignant conditions such as colon cancer * Assessment & Plan Note - Louie Whalen MD - 05/23/2025 8:41 AM EDT Associated Problem(s): Open-angle glaucoma Diagnosed by [facility]. Last seen by [facility] 08/30/2023 * Assessment & Plan Note - Louie Whalen MD - 05/23/2025 8:40 AM EDT Associated Problem(s): Diabetes mellitus, type II (HCC) Pt is here for a f/u DM worsening She is on a regimen of: Metformin XR 500 mg 2 tabs po BID, Glipizide 10 mg po daily ,Lantus 14 units sc q pm and Trulicity 4.5 mg q week She is on med boxes BG between 102-180 Hgb A1c 05/23/2025 : 9.5 from 8.9 from 9.3 from 13.7 Eye exam was last done on: 01/21/[address] Cotton (aircraft avionics technician) measured her IOP and was stable so he recommended to DC the eye drops she was using for a dx of Primary open angle glaucoma Microalbumin checked on : 10/26/2024 was: 9 Pt is not on an TANIYA inhibitor due to COUGH. She is on an ARB Valsartan. Foot check risk of zero Pt reports compliance with Asa 81 mg po daily Plan: Endocrinology referral 3 months f/u Pt advised to: adhere to diabetic diet check your blood sugars regularly check your feet on a daily basis * Assessment & Plan Note - Louie Whalen MD - 05/23/2025 8:39 AM EDT Associated Problem(s): Hypertension Pt is here for a f/u BP today stable She is on a regimen of: Diovan 160 mg po daily , Lasix 40 mg po daily and Amlodipine 5mg po daily restarted by Dr Saldaña. Off Hydralazine due to concerns of vasculitis Plan: BP stable Most recent electrolytes, Bun and Creatinine done on: Lab Results Component Value Date NA 138 01/23/2025 NA 137 01/09/2025 K 3.7 01/23/2025 K 3.7 01/09/2025 CL 105 01/23/2025 CL 103 01/09/2025 BUN 23 (H) 01/23/2025 BUN 22 (H) 01/09/2025 CREATININE 0.97 01/23/2025 CREATININE 0.97 01/09/2025 were wnl. patient advised to adhere to a low sodium diet, encouraged about medication compliance, counseled about weight loss. Of note pt had a cardiac cath at [facility] on 05/20/2009 There was NO angiographic evidence of CAD. seen in the past at [facility]. Plan: 3 month follow up * Assessment & Plan Note - Louie Whalen MD - 05/23/2025 8:38 AM EDT Associated Problem(s): Mixed hyperlipidemia Most recent lipid profile from: Lab Results Component Value Date TRIG 263 (H) 02/11/2023 Currently on a regimen of: Atorvastatin 80 mg po qhs Plan: Repeat Lipid profile advised to try to adhere to a low cholesterol diet, counseled and educated about diet and exercise,Patient encouraged to come up with a personal goal for weight loss. documented in this encounter Plan of Treatment Upcoming Encounters Date Type Department Care Team (Late st Contact Info) Description 07/09/2025 10:15 AM EST Office Visit [facility] [address] [place] [address] Malcolm, Jennifer [address] [place] [address] Scheduled Orders Name Type Priority Associated Diagnoses Orde r Schedule Lipid Panel, Standard Lab Routine Mixed hyperlipidemia Ordered: 05/23/2025 Scheduled Referrals Name Type Priority Associated Diagnoses Order Schedule Referral to Endocrinology Outpatient Referral Routine Type 2 diabetes mellitus without complication, with long-term current use of insulin ([facility]) Expected: 05/23/2025 (Approximate), Expires: 05/23/2026 documented as of this encounter Procedures Procedure Name Priority Date/Time Associated Diagnosis Comments POCT GLYCATED HEMOGLOBIN, TOTAL Routine 05/23/2025 9:16 AM EDT Type 2 diabetes mellitus without complication, with long-term current use of insulin ([facility]) POCT GLUCOSE Routine 05/23/2025 9:11 AM EDT Type 2 diabetes mellitus without complication, with long-term current use of insulin ([facility]) documented in this encounter Results * (ABNORMAL) POCT Hgb A1c (05/23/2025 9:16 AM EDT) Hemoglobin A1C 9.5(A) 4.0 - 5.7 % QC Media Lot # [id number] Lot# Expiration Date [id number] Blood 05/23/2025 9:16 AM EDT Louie Whalen MD POINT OF CARE TEST EN TER/EDIT ORDERABLES Final Result * POCT Glucose (05/23/2025 9:11 AM EDT) Glucose Blood, POC 126 60 - 200 mg/dL QC Media Lot # [id number] Lot# Expiration Date 22,726 Blood Capillary blood specimen / Unknown 05/23/2025 9:11 AM EDT Louie Whalen MD POINT OF CARE TEST EN TER/EDIT ORDERABLES Final Result documented in this encounter Visit Diagnoses Diagnosis Type 2 diabetes mellitus without complication, with long-term current use of insulin (HCC)- Primary Mixed hyperlipidemia Open-angle glaucoma, unspecified glaucoma stage, unspecified laterality, unspecified open-angle glaucoma type Spongiotic dermatitis Contact dermatitis and other eczema, due to unspecified cause Primary hypertension Unspecified essential hypertension Intertrigo Other specified erythematous condition Preventative health care Routine general medical examination at a health care facility Encounter for immunization documented in this encounter Additional Health Concerns Assessment Noted Time PHQ-9 Depression Total Score: 1 05/31/20 24 1:55 PM EDT documented as of this encounter Care Teams Mica Miner Relationship Specialty Start Date End Date Louie Gutierrez MD [address] [place] [id number] PCP - General Internal Medicine 06/13/13 Fatimah MARI 08/09/24 documented as of this encounter
--- OUTSIDE RECORDS SUMMARY | 2025-05-23 11:39 | XMS_ITS | Encounter Summary ---
Author Organization [employer] Address [address] [place] [address] [address] [place] [address] Care Team Providers Care Heavy Machinery Operator Name Role Phone Louie Gutierrez MD Primary Care Provide r Encounter Details Date Type Department Care Team (Latest Contact Info) Description 07/02/2022 Abstract [facility] CONVERSIONS Dental, Provider, DDS Social History [...] Description 07/09/2025 10:15 AM EST Office Visit [facility] [address] [place] [address] Malcolm, Jennifer [address] [place] [address] documented as of this encounter Visit Diagnoses Not on filedocumented in this encounter Care Teams Heavy Machinery Operator Relationship Specialty Start Date End Date Louie Gutierrez MD [address] [place] [address] PCP - General Internal Medicine 06/13/13 [place] [facility] 08/09/24 documented as of this encounter
--- OUTSIDE RECORDS SUMMARY | 2025-05-23 11:39 | XMS_ITS | Clinical Summary ---
Author Organization [employer] Address [address] [place] [address] Care Team Providers Care Network/Telecom Engineer Name Role Phone Louie Gutierrez MD Primary [...] EVERY DAY 30 tablet 6 024 Active estradiol (Estrace) 0.1 MG/GM vaginal cream Insert 1 g into the vagina Once per day. 1g vaginally x 14d, then twice weekly thereafter 42.5 g 024 2024 Active insulin glargine (Lantus SoloStar) 100 UNIT/ML penIndication s:Type 2 diabetes mellitus without complication, with long-term current use of insulin (HCC) Inject 16 Units under the skin at bedtime. 15 mL 3 025 Active glipiZIDE (Glucotrol) 10 MG tablet TAKE 1 TABLET BY MOUTH EVERY MORNING BEFORE A MEAL 90 tablet 1 025 Active atorvastatin (Lipitor) 80 MG tablet TAKE 1 TABLET BY MOUTH AT BEDTIME 30 tablet 6 025 Active bacitracin-po lymyxin b (Polysporin) ointment Apply topically 2 times daily. Apply to affected area daily 30 g 025 Active acetaminophen (Tylenol) 500 MG tablet Take 2 tablets (1,000 mg) by mouth every 6 (six) hours if needed for moderate pain or fever for up to 25 doses. 50 tablet 025 Active Trulicity 4.5 MG/0.5ML solution auto-injector Indications:T ype 2 diabetes mellitus without complication, with long-term current use of insulin ([facility]) INJECT ONE PEN (= 4.5MG) SUBCUTANEOUSLY ONCE A WEEK DIRECTED 2 mL 11 025 Active TRUEplus Lancets 33G miscIndicatio ns:Type 2 diabetes mellitus without complication, with long-term current use of insulin ([facility]) USE TO TEST BLOOD SUGAR THREE TIMES DAILY DIRECTED 100 each 11 025 Active Easy Touch Pen [place] 31G X 8 MM misc USE DIRECTED ONCE DAILY 100 each 3 025 Active metFORMIN (Glucophage) 1000 MG tablet TAKE 1 TABLET BY MOUTH TWICE DAILY IN THE MORNING AND IN THE EVENING WITH FOOD 180 tablet 025 Active OneTouch Ultra Test test stripIndicati ons:Type 2 diabetes mellitus without complication, with long-term current use of insulin ([facility]) TEST BLOOD SUGAR THREE TIMES DAILY 100 strip 3 025 Active Aspirin Low Dose 81 MG EC tablet TAKE 1 TABLET BY MOUTH EVERY EVENING 90 tablet 3 025 Active econazole nitrate 1 % creamIndicati ons:Intertrig o Apply topically 2 times daily. 85 g 025 Active Aspirin Adult Low Strength 81 MG EC tablet TAKE 1 TABLET BY MOUTH EVERY EVENING 90 tablet 3 024 2024 Discontinued econazole nitrate 1 % creamIndicati ons:Intertrig o Apply topically 2 times daily. 85 g 025 2024 Discontinued(R eorder (will not trigger notification to Pharmacy)) Active Problems Problem Noted Date Diagnosed Date Primary insomnia 01/31/2025 Assessment & Plan (01/31/2025 12:27 PM EDT): Previous Sleep study was done showing mild PAULO/severe snoring for which conservative measures were recommended I recommended : Good sleep hygiene habits, trazodone 100mg po qhs. Hx of solitary pulmonary nodule 01/31/2025 Assessment & Plan (01/31/2025 3:13 PM EDT): Chest CT done on 11/14/2013 and compared to one from 10/16/2012 showed a 3 mm pulmonary nodule, radiology did not recommend further f/u. Repeat 07/2024 in the ER showed: CT chest wo IV con 1. Bilateral dependent atelectasis with more focal opacities in the eft lingula and left lower lobe, which could represent atelectasis versus early pneumonia. No pleural effusion or pneumothorax. Hx of Paget's disease of bone 01/31/2025 Assessment & Plan (01/31/2025 3:15 PM EDT): Pt with a ? Paget's disease of the bone, evaluated in the past by an water valve repairer (Dr Banuelos) who treated her initially with Actonel but she could not tolerate subsequently she was given an infusion of Reclast and remains on Vitamin D pt was lost for f/u with Dr Banuelos. Pt was seen by a different Package Sorter (Dr Ferrer)who reviewed previous notes from Dr Banuelos and new bone scan, and lab data. She was seen on 11/08/2012 and based on his impression he DID NOT think pt had Paget's disease. She was last seen by [facility] on 02/16/2013 (Dr Ferrer) He diagnosed her with Osteoporosis and prescribed Reclast again. Recommended she stayed on Calcium and Vitamin D. He also thinks pt had secondary hyperparathyroidisms due to low Vit D levels and started supplementation. 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 Patient here for a follow up regarding a previous diagnosis of cellulitis of right lower leg Admitted to [facility] 01/09-01/10 after she presented with presumptive cellulitis of anterior of the right lower extremity. 3 weeks prior to her admission she fell and had a cut to the front of right leg which subsequent became infected. She was Rx 7 days of keflex on 12/17, and when seen again on 01/02 when she was given additional Abx for 10 days. Patient was admitted for Cellulitis failing outpatient Abx. There was no fever,normal WBC, normal inflammatory markers, she was treated with IV Vanco and Zosyn in the ED, and was transitioned to doxycyline on discharge. This was first photo Pt is under the care of Cardiology [facility] who do her vascular studies ([phone]) PreviuslyI Extended her Doxy BID x 10 days She was seen in the ER again and work up was unremarkable. We needed to rule out vasculitis, labs were normal Pt was on Hydralazine Pt was seen at Derm clinic 02/01/2025 underwent skin biopsy Treated with bethamethasone with good results Vasculitis lab panel ( so far CBC, ESR and CMP normal ) OFF Hydralazine Skin biopsy showed subacute spongiotic dermatitis This is today's photo, shows improvement Continue current plan Assessment & Plan (02/05/2025 11:19 AM EDT): Images from the original note were not included. Patient here for a follow up regarding a recent diagnosis of cellulitis of right lower leg Admitted to [facility] 01/09-01/10 after she presented with presumptive cellulitis of anterior of the right lower extremity. 3 weeks prior to her admission she fell and had a cut to the front of right leg which subsequent became infected. She was Rx 7 days of keflex on 12/17, and when seen again on 01/02 when she was given additional Abx for 10 days. Upon admission to hospital she reported that area was still red and painful, and was admitted for Cellulitis failing outpatient Abx. There was no fever,normal WBC, normal inflammatory markers, she was treated with IV Vanco and Zosyn in the ED, continued on IV doxy overnight and was transitioned to oral doxycyline the morning of discharge.Patient was referred to wound clinic but no showed. Today on exam, her skin is not hot, the previously descibed wound healed Pt is under the care of Cardiology [facility] who do her vascular studies ([phone]) Previus visit I Extended her Doxy BID x 10 days She was seen in the ER again and work up was unremarkable. We need to rule out vasculitis Pt was on Hydralazine Pt was seen at Derm clinic 02/01/2025 she is now s/p skin biopsy Treated with bethamethasone with good results Vasculitis lab panel ( so far CBC, ESR and CMP normal ) OFF Hydralazine This is today's photo 2 weeks follow up Assessment & Plan (01/31/2025 3:17 PM EDT): Images from the original note were not included. Patient here for a follow up regarding a recent diagnosis of cellulitis of right lower leg Admitted to [facility] 01/09-01/10 after she presented with presumptive cellulitis of anterior of the right lower extremity. 3 weeks prior to her admission she fell and had a cut to the front of right leg which subsequent became infected. She was Rx 7 days of keflex on 12/17, and when seen again on 01/02 when she was given additional Abx for 10 days. Upon admission to hospital she reported that area was still red and painful, and was admitted for Cellulitis failing outpatient Abx. There was no fever,normal WBC, normal inflammatory markers, she was treated with IV Vanco and Zosyn in the ED, continued on IV doxy overnight and was transitioned to oral doxycyline the morning of discharge.Patient was referred to wound clinic but no showed. Today on exam, her skin is not hot, the previously descibed wound healed Pt is under the care of Cardiology [facility] who do her vascular studies ([phone]) Previus visit I Extended her Doxy BID x 10 days She was seen in the ER again and work up was unremarkable. We need to rule out vasculitis Pt on Hydralazine Pt has appointment with Derm clinic tomorrow at 9:00 AM she will likely need a skin biopsy I have ordered a Vasculitis lab panel ( so far CBC, ESR and CMP normal ) STOP Hydralazine Follow up with me in 1 week to review labs and Derm recommendations This is today's leg photo Assessment & Plan (01/17/2025 10:02 AM EDT): Images from the original note were not included. Patient here for a sick visit for a follow up regarding a recent diagnosis of cellulitis of right leg She was recently admitted to [facility] 01/09-01/10 after she presented with cellulitis of [...] Preventative health care 09/01/2023 Assessment & Plan (05/23/2025 9:56 AM EDT): Mammogram: Mammo 09/21/2024 Normal. Pap Smear: -wnl 2003, 2004 and 2005 with h/o hysterectomy and no abnormal paps, , no need for further pap screening Colonoscopy: 03/09/2019 showed a tubular adenoma h/o tubular adenoma 2004, as well . She was seen by GI in 2021 who recommended a repeat Colonoscopy but patient did not do it. Pt today REFUSES to have it done, discussed with her the risk of missing malignant conditions such as colon cancer Assessment & Plan (12/01/2023 10:09 AM EDT): [...] PM EDT): S/o excision by Mian Lara DRAUGHTSMAN Pathology showed: Variable epidermal acanthosis with focal [...] Variable epidermal acanthosis with focal mild atypia. Note: The overall histologic findings are most [...] past. Last DEXA 2018 showed osteopenia. . william Ortega that her secondary workup was completed and was negative. Repeat DEXA showed osteoporosis in the femoral neck. Urine NTX is suppressed Their Plan is to continue to follow off pharmacologic therapy. If urine NTX is rising, they would consider giving another dose of intravenous Reclast or of NTX is stable may consider to to continue observe Secondary hyperparathyroidism 08/21/2013 Assessment & Plan (01/31/2025 12:25 PM EDT): Used to be under the care of Dr. Ferrer last seen 09/19/2014 Tubular adenoma of colon 08/21/2013 Open-angle glaucoma 05/30/2012 Assessment & Plan (05/23/2025 8:41 AM EDT): Diagnosed by [facility]. Last seen by [facility] 08/30/2023 Assessment & Plan (09/01/2023 9:28 AM EST): Diagnosed by [facility]. Last seen by [facility] 08/30/2023 Diabetes mellitus, type II 05/11/2012 Assessment & Plan (05/23/2025 9:54 AM EDT): Pt is here for a [...] last done on: 01/21/[address] Cotton (hand former helper) measured her IOP and was stable so [...] on a daily basis Assessment & Plan (01/31/2025 10:22 AM EDT): Pt is here for a [...] last done on: 01/21/[address] Cotton (hand former helper) measured her IOP and was stable so [...] on a daily basis Assessment & Plan (01/17/2025 9:47 AM EDT): [...] last done on: 01/21/[address] Cotton (hand former helper) measured her IOP and was stable so [...] last done on: 01/21/[address] Cotton (hand former helper) measured her IOP and was stable so [...] Pt tells me she was vacationing in [place] and while there she was not following a diabetic diet. When reviewing her glucometer it was evident the time she was in [place] because her blood sugars were consistently high and now that she is back blood sugars have normalized Eye exam was last done on: 01/21/[address] Cotton (hand former helper) measured her IOP and was stable so [...] compliance with diet and meds while in [place] 3 months f/u Pt advised to: adhere [...] last done on: 01/21/[address] Cotton (hand former helper) measured her IOP and was stable so [...] last done on: 01/21/[address] Cotton (hand former helper) measured her IOP and was stable so [...] last done on: 01/21/[address] Cotton (hand former helper) measured her IOP and was stable so [...] last done on: 01/21/[address] Cotton (hand former helper) measured her IOP and was stable so [...] disease 05/11/2012 Hypertension 05/11/2012 Assessment & Plan (05/23/2025 8:39 AM EDT): Pt is here for a [...] note pt had a cardiac cath at [facility] on 05/20/2009 There was NO angiographic evidence of CAD. seen in the past at [facility]. Plan: 3 month follow up Assessment & Plan (02/06/2025 12:45 PM EDT): Pt is here for a f/u BP today elevated She is on a regimen of: Diovan 160 mg po daily , Lasix 40 mg po daily and Amlodipine 5mg po daily restarted by Dr Saldaña. Off Hydralazine due to concerns of vasculitis Plan: BP elevated today since pt has yet to take her meds Pt following with our [facility] Clinic Most recent [...] note pt had a cardiac cath at [facility] on 05/20/2009 There was NO angiographic evidence of CAD. seen in the past at [facility]. Plan: 4 week follow up, awaiting skin biopsy result to see if dermatitis is due to vasculitis or not before we decide what to do in regards of the Hydralazine. Assessment & Plan (01/31/2025 3:14 PM EDT): Pt is here for a f/u BP controlled She is on a regimen of: Diovan 160 mg po daily , Hydralazine 25 mg po BID, Lasix 40 mg po daily and Amlodipine 5mg po daily restarted by Dr Saldaña Plan: Stop Hydralazine given concerns of vasculitis until this is ruled out Continue other BP meds Pt following with our [facility] Clinic Most recent [...] note pt had a cardiac cath at [facility] on 05/20/2009 There was NO angiographic evidence of CAD. seen in the past at [facility]. PREVIOUSLY ADDRESSED: THE INFORMATION BELOW HAS BEEN COPIED, PASTED AND UPDATED FROM PREVIOUS NOTES. Chest discomfort (R07.89). Resolved, pt ended up having an outpt stress test 05/23/2019 that was negative for ischemia. Of note pt had a cardiac cath 2008 at [facility] that was unremarkable. Assessment & Plan (10/09/2024 10:56 AM EST): [...] note pt had a cardiac cath at [facility] on 05/20/2009 There was NO angiographic evidence of CAD. seen in the past at [facility]. PREVIOUSLY ADDRESSED: THE INFORMATION BELOW HAS BEEN COPIED, PASTED AND UPDATED FROM PREVIOUS NOTES. Chest discomfort (R07.89). Resolved, pt ended up having an outpt stress test 05/23/2019 that was negative for ischemia. Of note pt had a cardiac cath 2008 at [facility] that was unremarkable. 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 Pt with a Hx. of ? Paget's disease of the bone, evaluated in the past by an water valve repairer (Dr Banuelos) who treated her initially with Actonel but she could not tolerate subsequently she was given an infusion of Reclast and remains on Vitamin D pt was lost for f/u with Dr Banuelos. Last visit we scheduled a f/u appointment. Pt was seen by a different Package Sorter (Dr Ferrer)who review previous notes from Dr Banuelos and new bone scan, and lab data. She was seen on 11/08/2012 based on his impression he DID NOT think pt had Paget's disease. She was last seen by [facility] Endocr[facility]ology on 02/16/2013 (Dr Ferrer) He diagnosed [...] note pt had a cardiac cath at [facility] on 05/20/2009 There was NO angiographic evidence of CAD. seen in the past at [facility]. PREVIOUSLY ADDRESSED: THE INFORMATION BELOW HAS BEEN COPIED, PASTED AND UPDATED FROM PREVIOUS NOTES. Chest discomfort (R07.89). Resolved, pt ended up having an outpt stress test 05/23/2019 that was negative for ischemia. Of note pt had a cardiac cath 2008 at [facility] that was unremarkable. 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 Pt with a Hx. of ? Paget's disease of the bone, evaluated in the past by an water valve repairer (Dr Banuelos) who treated her initially with Actonel but she could not tolerate subsequently she was given an infusion of Reclast and remains on Vitamin D pt was lost for f/u with Dr Banuelos. Last visit we scheduled a f/u appointment. Pt was seen by a different Package Sorter (Dr Ferrer)who review previous notes from Dr Banuelos and new bone scan, and lab data. She was seen on 11/08/2012nd based on his impression he DID NOT think pt had Paget's disease. She was last seen by [facility] Endocrinology on 02/16/2013 (Dr Ferrer) He diagnosed [...] note pt had a cardiac cath at [facility] on 05/20/2009 There was NO angiographic evidence of CAD. seen in the past at [facility]. PREVIOUSLY ADDRESSED: THE INFORMATION BELOW HAS BEEN COPIED, PASTED AND UPDATED FROM PREVIOUS NOTES. Chest discomfort (R07.89). Resolved, pt ended up having an outpt stress test 05/23/2019 that was negative for ischemia. Of note pt had a cardiac cath 2008 at [facility] that was unremarkable. 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 Pt with a Hx. of ? Paget's disease of the bone, evaluated in the past by an water valve repairer (Dr Banuelos) who treated her initially with Actonel but she could not tolerate subsequently she was given an infusion of Reclast and remains on Vitamin D pt was lost for f/u with Dr Banuelos. Last visit we scheduled a f/u appointment. Pt was seen by a different Package Sorter (Dr Ferrer)who review previous notes from Dr Banuelos and new bone scan, and lab data. She was seen on 11/08/2012nd based on his impression he DID NOT think pt had Paget's disease. She was last seen by [facility] Endocrinology on 02/16/2013 (Dr Ferrer) He diagnosed [...] hyperparathyroidism -cont Reclast annually as per Dr. eFrrer -cont vitamin D supplementation Secondary hyperparathyroidism (of [...] note pt had a cardiac cath at [facility] on 05/20/2009 There was NO angiographic evidence of CAD. seen in the past at [facility]. PREVIOUSLY ADDRESSED: THE INFORMATION BELOW HAS BEEN COPIED, PASTED AND UPDATED FROM PREVIOUS NOTES. Chest discomfort (R07.89). Resolved, pt ended up having an outpt stress test 05/23/2019 that was negative for ischemia. Of note pt had a cardiac cath 2008 at [facility] that was unremarkable. 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 Pt with a Hx. of ? Paget's disease of the bone, evaluated in the past by an water valve repairer (Dr Banuelos) who treated her initially with Actonel but she could not tolerate subsequently she was given an infusion of Reclast and remains on Vitamin D pt was lost for f/u with Dr Banuelos. Last visit we scheduled a f/u appointment. Pt was seen by a different Package Sorter (Dr Ferrer)who review previous notes from Dr Banuelos and new bone scan, and lab data. She was seen on 11/08/2012 based on his impression he DID NOT think pt had Paget's disease. She was last seen by [facility] Endocrinology on 02/16/2013 (Dr Ferrer) He diagnosed [...] note pt had a cardiac cath at [facility] on 05/20/2009 There was NO angiographic evidence of CAD. seen in the past at [facility]. PREVIOUSLY ADDRESSED: THE INFORMATION BELOW [...] pt had a cardiac cath 2009 at [facility] that was unremarkable. 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 Examination suggestive of this Plan: Nizoral shampoo, Neutrogenal Robertson tar shampoo extra strength Referral to Dr [...] moderate stage (365.10), Chronic. Recently diagnosed by [facility]. last seen 03/10/2012. They recommended to continue to follow with dr. 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 Pt with a Hx. of ? Paget's disease of the bone, evaluated in the past by an water valve repairer (Dr Banuelos) who treated her initially with Actonel but she could not tolerate subsequently she was given an infusion of Reclast and remains on Vitamin D pt was lost for f/u with Dr Banuelos. Last visit we scheduled a f/u appointment. Pt was seen by a different Package Sorter (Dr Ferrer)who review previous notes from Dr Banuelos and new bone scan, and lab data. She was seen on 11/08/2012nd based on his impression he DID NOT think pt had Paget's disease. She was last seen by [facility] Endocrinology on 02/16/2013 (Dr Ferrer) He diagnosed [...] pain Mixed hyperlipidemia 05/11/2012 Assessment & Plan (05/23/2025 8:38 AM EDT): Most recent lipid profile from: Lab Results Component Value Date TRIG 263 (H) 02/11/2023 Currently on a regimen of: Atorvastatin 80 mg po qhs Plan: Repeat Lipid profile advised to try to adhere to a low cholesterol diet, counseled and educated about diet and exercise, Patient encouraged to come up with a personal goal for weight loss. Assessment & Plan (09/01/2023 9:20 AM EST): Most recent lipid profile from: 02/11/2023 shows a total cholesterol of: Component Ref Range & Units 6 mo ago (02/11/23) 1 yr ago (01/28/22) 2 yr ago (08/26/21) 2 yr ago (08/17/21) 2 yr ago (11/10/20) Cholesterol, Total <200 mg/dL 175 130 205 High 236 High 132 HDL Cholesterol > OR = 50 mg/dL 48 Low 43 Low 40 Low 48 Low 53 Triglycerides <150 mg/dL 263 High 115 187 High 239 High CM 107 Comment: If a non-fasting specimen was collected, consider repeat triglyceride testing on a fasting specimen if clinically indicated. Simón et al. J. of Clin. Lipidol. 2015;9:129-169. LDL Cholesterol mg/dL (calc) 92 67 CM 133 High CM 149 High CM 60 CM Comment: Reference range: <100 Desirable range <100 mg/dL for primary prevention; <70 mg/dL for patients with CHD or diabetic patients with > or = 2 CHD risk factors. LDL-C is now calculated using the Christa calculation, which is a validated novel method providing better accuracy than the Friedewald equation in the estimation of LDL-C. Ciaran SS et al. HITESH. 2013;310(19): 4801-3498 (http://education.Jule Game/faq/JBH348) Chol/HDLC Ratio <5.0 (calc) 3.6 3.0 5.1 High 4.9 2.5 Non-HDL Cholesterol <130 mg/dL (calc) 127 87 CM 165 High CM 188 High CM 79 CM Currently on a regimen [...] Encounters Date Type Department Care Team Description 05/23/2025 9:15 AM EDT Office Visit [facility] [address] [place] [phone] Louie Gutierrez MD Type 2 diabetes mellitus without complication, with long-term current use of insulin (HCC) (Primary Dx); Mixed hyperlipidemia; Open-angle glaucoma, unspecified glaucoma stage, unspecified laterality, unspecified open-angle glaucoma type; Spongiotic dermatitis; Primary hypertension; Intertrigo; Preventative health care; Encounter for immunization 05/23/2025 Travel 05/22/2025 Telephone [facility] [address] [place] [address] Louie Gutierrez MD chart prep 05/07/2025 Refill [facility] [address] [place] [address] Louie Gutierrez MD 04/12/2025 Refill [facility] [address] [place] [address] Deborah Good NP Type 2 diabetes mellitus without complication, with long-term current use of insulin ([facility]) 04/05/2025 10:00 AM EDT Office Visit [facility] MEDICINE [address] [place] [address] Amado Lynch MD Irritant contact dermatitis, unspecified trigger (Primary Dx) 04/05/2025 Travel 03/27/2025 Refill [facility] [address] [place] [address] Louie Gutierrez MD 03/25/2025 Refill [facility] [address] [place] [address] Dena Christianson MD 03/17/2025 Refill [facility] [address] [place], [place] [phone] Louie Gutierrez MD Type 2 diabetes mellitus without complication, with long-term current use of insulin ([facility]) from Last 3 Months Immunizations Immunization Administration Dates Next Due Influenza High-dose Quadriva lent Preservative Free 06/17/2022,06/04/2021 Influenza injectable quadriv alent IIV4 with preservative 06/28/2017,05/18/2016,06/17/2015 Influenza injectable quadriv alent preservative free 09/01/2023 Influenza, High Dose Seasona l, Preservative Free 05/23/2025,05/31/2024,08/07/2019 Influenza, IIV3, injectable 05/02/2014 Influenza, Split (incl. [...] 21 05/23/2025 9:10 AM EDT Oxygen Saturation 98% 02/19/2025 10:28 AM EDT Inhaled Oxygen Concentration - - Weight 71.8 kg (158 lb 6.4 oz) 05/23/2025 9:10 A M EDT Height 152.4 cm (5') 05/23/2025 9:10 AM EDT Body Mass Index 30.94 05/23/2025 9:10 AM EDT Plan of Treatment Upcoming Encounters Date Type Department Care Team (Late st Contact Info) Description 07/09/2025 10:15 AM EST Office Visit [facility] ADULT DENTAL [address] [place] [address] Malcolm, Jennifer [address] [place] [address] Health Maintenance Due Date Last Done Comments Diabetes: Foot Exam 1950 Eye Exam 1950 RSV Patients and Patients Aged 60 years or older (1 - 1-dose 75+ series) 2016 Zoster Vaccines (3 of 3) 08/12/2022 06/17/2022, 08/23 Lipid Panel 02/12/2024 02/11/2023, 06/0 04/2022, 08/26/2021, Additional history exists Dental Oral Exam 11/05/2024 05/07/2024, , 07/02/2022, Additional history exists COVID-19 Vaccine (2024- season) 2025 11/14/2020, 10/17/2020 Dental X-Ray: Bitewings 05/08/2025 05/07/20 24, 12/01/2023, 09/15/2023, Additional history exists Depression Screening 05/31/2025 05/31/2024, 05/31/20 24 Dental Prophylaxis 06/24/2025 12/21/2024, 0 05/07/2024, 09/15/2023, Additional history exists Diabetes: Hemoglobin A1C 08/23/2025 025, 01/17/2025, 10/09/2024, Additional history exists Mammogram 09/13/2025 09/13/2024, 08/22, 09/02/2022, Additional history exists Alcohol/Substance Use Screening 10/09/2025 10/09/2024 SDOH Screening 10/09/2025 10/09/2024 Diabetes: Urine Protein Screening 10/26/2025 10/26/2024, 08/26/2021, 11/10/2020, Additional history exists Tobacco Screening 02/19/2026 02/19/2025 Dental X-Ray: Full Mouth 05/08/2027 05/07/2024, 02/09/2020 DTaP/Tdap/Td Vaccines (3 - Td or Tdap) 12/12/2034 12/12/2024, 03/13/2015, 05/08/2004, Additional history exists Pneumococcal Vaccine: 50+ Years Completed 02/05/2016, 09/12/2014 Influenza Vaccine Completed 05/23/2025, , 09/01/2023, Additional history exists HIB Vaccines Aged Out [...] with long-term current use of insulin (HCC) POCT GLUCOSE Routine 05/23/2025 9:11 AM EDT Type 2 diabetes mellitus without complication, with long-term current use of insulin (HCC) PROPHYLAXIS - ADULT Routine 12/21/2024 9 :00 AM EDT Dental plaque Periodontal disease Missing teeth, acquired Dental calculus ALBUMIN, RANDOM URINE W/CREATININE Routine 10/26/2024 8:36 AM EST Type 2 diabetes mellitus without complication, with long-term current use of insulin ([facility]) BI MAMMOGRAM SCREENING TOMOSYNTHESIS BILATERAL Routine 09/13/2024 8:38 AM EST INTRAORAL - COMPLETE SERIES OF RADIOGRAPHIC IMAGES Routine 05/07/2024 8:00 AM EDT PERIODIC ORAL EVALUATION - ESTABLISHED PATIENT Routine 05/07/2024 8:00 AM EDT LIPID PANEL WITH REFLEX TO DIRECT LDL Routine 02/11/2023 9:28 AM EDT Type 2 diabetes mellitus without complication, with long-term current use of insulin ([facility]) from Last 3 Months or Most Recently Relevant to Health Maintenance Results * (ABNORMAL) POCT Hgb A1c (05/23/2025 9:16 AM EDT) Hemoglobin A1C 9.5(A) 4.0 - 5.7 % QC Media Lot # [id number] Lot# Expiration Date [id number] Blood 05/23/2025 9:16 AM EDT us Louie Whalen MD POINT OF CARE TEST EN TER/EDIT ORDERABLES Final Result * POCT Glucose (05/23/2025 9:11 AM EDT) Glucose Blood, POC 126 60 - 200 mg/dL QC Media Lot # [id number] Lot# Expiration Date 22,726 Blood Capillary blood specimen / Unknown 05/23/2025 9:11 AM EDT us Louie Whalen MD POINT OF CARE TEST EN TER/EDIT ORDERABLES Final Result * Albumin, Random Urine W/Creatinine (10/26/2024 8:36 AM EST) Creatinine, Urine 86.79 mg/dL [facility] Microalbumin Urine 9.0 mg/L [facility] Microalbum Creatinine Ratio Ur 10.3 <30 ug/mg cr [facility] Comment:Albumin/Creatinine R atio Reference Ranges: Normal: < 30 ug/mg creatinine Microalbuminuria: 30 - 300 ug/mg creatinineClinical Albuminuria: > 300 ug/mg creatinine Urine (Urine, Random) 10/26/2024 8:36 AM EST 10/26/2024 8:54 AM EST us Louie Whalen MD LAB URINE ORDERABLES Final Result [facility] [address] [place] [address] [phone] * BI Mammogram Screening Tomosynthesis Bilateral (09/13/2024 8:38 AM EST) Anatomical Region Laterality Modality Breast Bilateral Mammography 09/13/2024 8:38 AM EST Narrative 09/21/2024 4:45 PM EST [facility] [address] [place] [address] Mammography Report Signed Patient: Yusra Rodriguez MR#: [id number] 3 : 1940 Acct:[id number] Age/Sex: 83 / F ADM Date: 09/13/24 Loc: HO.MAMMO Attending Dr: Louie Narayanan MD Ordering Physician: Louie Narayanan MD Resu lts: 1Negative Date of Service: 09/13/24 Follow Up: 1 Year From [facility] Mammogram Procedure(s): MM tomosynthesis screening BI Accession Number(s): [id number] cc: Louie Narayanan MD EXAMINATION: MM SCREENING [...] by: Judi Navarro DO 09/21/2024 04:42 PM [facility] Dictated By: Judi Navarro DO Signed By: <Electronically signed by Judi Navarro DO in OV> 09/21/24 1642 DD/ 0838 TD/TT: 09/13/24 0853 Sales Applications Engineer: Procedure Note Donotuseinterpreter, Image - 09/21/2024 [facility] [address] [place] [address] Mammography Report Signed Patient: Yusra Rodriguez JMR#: [id number] 3 : 2Acct:[id number] Age/Sex: 83 / FADM Date: 09/13/24 Loc: HO.MAMMO Attending Dr: Louie Narayanan MD Ordering Physician: Louie Narayanan MDResu lts: 1Negative Date of Service: 09/13/24Follow Up: 1 Year From Orig inal Mammogram Procedure(s): MM tomosynthesis screening BI Accession Number(s): [id number] cc: Louie Narayanan MD EXAMINATION: MM SCREENING [...] 09/21/24 1642 DD/ 0838 TD/TT: 09/13/24 0853 Sales Applications Engineer: us Louie Whalen MD IMG BI PROCEDURES Fin al Result * (ABNORMAL) Lipid Panel with Reflex to Direct LDL (02/11/2023 9:28 AM EDT) Cholesterol, Total 175 <200 mg/dL [facility] HDL Cholesterol 48(L) > OR = 50 mg/dL [facility] Triglycerides 263(H) <150 mg/dL [facility] Comment: If a non-fasting specimen was collected, consider repeat triglyceride testing on a fasting specimen if clinically indicated. Simón et al. J. of Clin. Lipidol. 2015;9:129-169. LDL Cholesterol 92 mg/dL (calc) [facility] Comment: Reference range: <100 Desirable range <100 mg/dL for primary prevention; <70 mg/dL for patients with CHD or diabetic patients with > or = 2 CHD risk factors. LDL-C is now calculated using the Ciaran-Tae calculation, which is a validated novel method providing better accuracy than the Friedewald equation in the estimation of LDL-C. Ciaran SS et al. HITESH. 2013;310(19): 7405-6933 (http://education.Jule Game/faq/BEH797) Chol/HDLC Ratio 3.6 <5.0 (calc) [facility] Non-HDL Cholesterol 127 <130 mg/dL (calc) [facility] Comment: For patients with diabetes plus 1 major ASCVD risk factor, treating to a non-HDL-C goal of <100 mg/dL (LDL-C of <70 mg/dL) is considered a therapeutic option. 02/11/2023 9:28 AM EDT 02/11/2023 9:29 AM EDT Narrative [facility] - 02/11/2023 7:45 PM EDT FASTING:NO FASTING: NO Louie Whalen MD LAB BLOOD ORDERABLES Final Result [facility] [address], [place] [address] [facility] [address] [place] [address] from Last 3 Months or Most Recently Relevant to Health Maintenance Insurance [facility]PLETE D[facility] - [facility] Care Teams Network/Telecom Engineer Relationship Specialty Start Date End Date Louie Gutierrez MD [address] [place] [address] PCP - General Internal Medicine 06/13/13 Fatimah [facility] 08/09/24
--- OUTSIDE RECORDS SUMMARY | 2025-05-23 11:39 | XMS_ITS | Encounter Summary ---
Author Organization [employer] Address [address] [facility] 7[address] [place] [address] Care Team Providers Care Gift Basket Packer Name Role Phone Louie Gutierrez MD Primary Care Provide r Encounter Details Date Type Department Care Team (Late st Contact Info) Description 02/06/2025 Orders Only [facility] [address] [place] [address] ProviderReggie MD Social History Tobacco Use Types Packs/Day Years [...] Description 07/09/2025 10:15 AM EST Office Visit [facility] ADULT DENTAL [address] [place] [address] Malcolm, Jennifer [address] [place] [address] documented as of this encounter Procedures Procedure Name Priority Date/Time Associated Diagnosis Comments DERMATOPATHOLOGY REPORT Routine 02/01/2025 2:11 PM EDT documented in this encounter Results * Dermatopathology Report (02/01/2025 2:11 PM EDT) us Historical Provider LAB BLOOD ORDERABLES Edit ed Result - Final documented in this encounter Visit Diagnoses Not on filedocumented in this encounter Additional Health Concerns Assessment Noted Time PHQ-9 Depression Total Score: 1 05/31/20 24 1:55 PM EDT documented as of this encounter Care Teams Gift Basket Packer Relationship Specialty Start Date End Date Louie Gutierrez MD [address] [place] [address] PCP - General Internal Medicine 06/13/13 Fatimah GOODWINA 08/09/24 documented as of this encounter
--- OUTSIDE RECORDS SUMMARY | 2025-05-23 11:39 | XMS_ITS | Encounter Summary ---
Author Organization [employer] Address [address] [facility] 7 [place] [address] Care Team Providers Care Cellar Pumper Name Role Phone Louie Gutierrez MD Primary Care Provide r Reason for Visit * Reason Onset Date Comments Nurse Triage 01/02/2025 Encounter Details Date Type Department Care Team ([facility] st Contact Info) Description 01/02/2025 Telephone [facility] MEDICINE [address] [place] [address] Louie Gutierrez MD [address] [place] [address] Nurse Triage Social History Tobacco Use Types Packs/Day Years [...] is your housing situation today? I have carlosxenia pitts 06/07/[address] you [...] encounter Miscellaneous Notes * Telephone Encounter - Cyn Dupree RN - 01/02/2025 1:58 PM EDT Triage call to [phone] Pt daughter from [place] has come to help Pt. Pt reports fall 3 weeks ago . Pt was going down stairs to do laundry, put on flip flops and proceeded to slip on the stairs. Pt reports falling onto right knee and abrasion occurred. Pt was seen in [facility] 12/12/24. Tdap was givenat that time. Wound was cleaned and antibiotic ointment applied , Pt went home with some dressing material and prescription for antibiotic ointment. Pt is calling today with reports of right knee abrasion with possible infection. Area is reddened with pus formation. Pt is a diabetic. Pt was given wound referral to [facility] wound clinic but, never went. Pt is given apt today with Dr. Mead @ 230pm. Insurance is verified as active prior to booking apt. Protocol Used: Wound Infection Suspected (Adult) Protocol-Based Disposition: See in Office or Video Visit Today Video visit not offered Positive Triage Question: * Pus or cloudy fluid draining from wound * All higher-acuity triage questions were negative Care Advice Discussed: * Wound Infection - Treatment With Local Heat * Antibiotic Ointment * Pain Medicines * Pain Medicines - Extra Notes and Warnings * Reasons To Call Back - Fever occurs - You become worse * Telephone Encounter - Alyssia Oscar Danielle - 01/02/2025 1:24 PM EDT Symptom: Fall Outcome: Transfer to a nurse or provider NOW! Reason: Trouble walking that started after the fall The caller accepted this outcome. [phone] yoruba documented in this encounter Plan of Treatment Upcoming Encounters Date Type Department Care Team (Late st Contact Info) Description 07/09/2025 10:15 AM EST Office Visit [facility] ADULT DENTAL [address] [place] [address] MalcolmUlisesJennifer [address] [place] [address] documented as of this encounter Visit Diagnoses Not on filedocumented in this encounter Additional Health Concerns Assessment Noted Time PHQ-9 Depression Total Score: 1 05/31/20 24 1:55 PM EDT documented as of this encounter Care Teams Cellar Pumper Relationship Specialty Start Date End Date Louie Gutierrez MD [address] [place] [address] PCP - General Internal Medicine 06/13/13 Fatimah MARI 08/09/24 documented as of this encounter
--- OUTSIDE RECORDS SUMMARY | 2025-05-23 11:39 | XMS_ITS | Encounter Summary ---
Author Organization [employer] Address [address] [facility] 7 [place] [address] Care Team Providers Care Automobile Bumper Straightener Name Role Phone Louie Gutierrez MD Primary Care Provide r Reason for Visit * Reason Onset Date Comments chart prep 05/22/2025 Encounter Details Date Type Department Care Team ([facility] st Contact Info) Description 05/22/2025 Telephone [facility] MEDICINE [address] [place] [address] Louie Gutierrez MD [address] [place] [address] chart prep Social History Tobacco Use Types Packs/Day Years [...] encounter Miscellaneous Notes * Telephone Encounter - Kaila Carmona [place] - 05/22/2025 3:35 PM EDT Chart Prep Labs: done Images: done Screenings: Eye Exam and Foot Exam Vaccines due: Covid Due, Flu Due, RSV in Pharmacy Due, and Shingles in pharmacy Due Referrals: Completed Overdue care gaps: A1C, Glucose, PHQ9, and Oral Health documented in this encounter Plan of Treatment Upcoming Encounters Date Type Department Care Team (Late st Contact Info) Description 07/09/2025 10:15 AM EST Office Visit [facility] ADULT DENTAL [address] [place] [address] Malcolm, Jennifer [address] [place] [address] documented as of this encounter Visit Diagnoses Not on filedocumented in this encounter Additional Health Concerns Assessment Noted Time PHQ-9 Depression Total Score: 1 05/31/20 24 1:55 PM EDT documented as of this encounter Care Teams Automobile Bumper Straightener Relationship Specialty Start Date End Date Louie Gutierrez MD [address] [place] [address] PCP - General Internal Medicine 06/13/13 Fatimah MARI 08/09/24 documented as of this encounter
--- OUTSIDE RECORDS SUMMARY | 2025-05-23 11:39 | XMS_ITS | Encounter Summary ---
Author Organization [employer] Address [address] [place] [address] 7 [place] [address] Care Team Providers Care Residential Installer Name Role Phone Louie Gutierrez MD Primary Care Provide r Encounter Details Date Type Department Care Team (Latest Contact Info) Description 10/20/2020 Abstract [facility] CONVERSIONS Dental, Provider, DDS Social History Tobacco [...] Description 07/09/2025 10:15 AM EST Office Visit [facility] ADULT DENTAL [address] [place] [address] Malcolm, Jennifer [address] [place] [address] documented as of this encounter Visit Diagnoses Not on filedocumented in this encounter Care Teams Residential Installer Relationship Specialty Start Date End Date Louie Gutierrez MD [address] [place] [address] PCP - General Internal Medicine 06/13/13 [facility] 08/09/24 documented as of this encounter
--- OUTSIDE RECORDS SUMMARY | 2025-05-23 11:40 | XMS_ITS | Encounter Summary ---
Author Organization [employer] Address [address] [facility] 7 [place] [address] Care Team Providers Care Curing Bin Operator Name Role Phone Louie Gutierrez MD Primary Care Provide r Encounter Details Date Type Department Care Team ([facility] Contact Info) Description 12/07/2022 Orders Only [facility] MED & PEDS [address] [place], [place] [phone] Roro Gregg LPN Social History Tobacco Use [...] Description 07/09/2025 10:15 AM EST Office Visit [facility] ADULT DENTAL [address] [place] [address] Malcolm, Jennifer [address] [place] [address] documented as of this encounter Visit Diagnoses Not on filedocumented in this encounter Care Teams Curing Bin Operator Relationship Specialty Start Date End Date Louie Gutierrez MD [address] [place] [address] PCP - General Internal Medicine 06/13/13 Fatimah MARI 08/09/24 documented as of this encounter
--- OUTSIDE RECORDS SUMMARY | 2025-05-23 11:40 | XMS_ITS | Encounter Summary ---
Author Organization [employer] Address [address] [facility] 7t [place] [address] Care Team Providers Care Auto Electrician Name Role Phone Louie Gutierrez MD Primary Care Provide r Reason for Visit * Reason Comments Med Refill Encounter Details Date Type Department Care Team ([facility] st Contact Info) Description 09/01/2023 Refill [facility] MEDICINE [address] [place] [address] Louie Gutierrez MD [address] [place], [place] [phone] Social History Tobacco Use Types Packs/Day Years [...] Description 07/09/2025 10:15 AM EST Office Visit [facility] ADULT DENTAL [address] [place] [address] Malcolm, Jennifer [address] [place] [address] documented as of this encounter Visit Diagnoses Not on filedocumented in this encounter Additional Health Concerns Assessment Noted Time PHQ-9 Depression Total Score: 0 02/04/20 23 2:31 PM EDT documented as of this encounter Care Teams Auto Electrician Relationship Specialty Start Date End Date Louie Gutierrez MD [address] [place] [address] PCP - General Internal Medicine 06/13/13 Fatimah GOODWINA 08/09/24 documented as of this encounter
--- OUTSIDE RECORDS SUMMARY | 2025-05-23 11:40 | XMS_ITS | Encounter Summary ---
Author Organization [employer] Address [address] [facility] 7t [place] [address] Care Team Providers Care Boating Safety Officer Name Role Phone Louie Gutierrez MD Primary Care Provide r Encounter Details Date Type Department Care Team (Latest Contact Info) Description 05/23/2025 Travel Social History Tobacco Use Types Packs/Day [...] Description 07/09/2025 10:15 AM EST Office Visit [facility] ADULT DENTAL [address] [place] [address] Malcolm, Jennifer [address] [place] [address] documented as of this encounter Visit Diagnoses Not on filedocumented in this encounter Additional Health Concerns Assessment Noted Time PHQ-9 Depression Total Score: 1 05/31/20 24 1:55 PM EDT documented as of this encounter Care Teams Boating Safety Officer Relationship Specialty Start Date End Date Louie Gutierrez MD [address] [place] [address] PCP - General Internal Medicine 06/13/13 Fatimah GOODWINA 08/09/24 documented as of this encounter
[2025-05-23 12:19] LABS: Cholesterol 211 mg/dL (<200); HDL Cholesterol 47 mg/dL (>40); Triglycerides 166 mg/dL (<150)
== END 2025-05-23 10:14 | disposition home or self-care (01) ==
LOC: HO.HHCL 10:13
PROVIDERS: PCP Internal Medicine; Visit Provider Internal Medicine
DX: E78.2 Mixed hyperlipidemia (principal)
CPT/HCPCS: 36415; 80061

== ENCOUNTER 2025-06-04 07:28 | Emergency (ER) | payer OTHER, SELFPAY ==
--- NOTE | 2025-06-04 | ECG_ITS ---
Test Reason : tachy Blood Pressure : */* mmHG Vent. Rate : 143 BPM Atrial Rate : * BPM P-R Int : * ms QRS Dur : 102 ms QT Int : 300 ms P-R-T Axes : * -2 11 degrees QTcB Int : 463 ms Supraventricular tachycardia with occasional Premature ventricular complexes Nonspecific ST abnormality Abnormal ECG When compared with ECG of 23-Jan-2025 12:24, Questionable change in QRS duration Referred By: Wild Villalobos Electronically Signed By: Fran Jordan
--- NOTE | ~2025-06-04 | XR_ITS ---
EXAMINATION: XR CHEST CLINICAL INFORMATION: shortness of breath COMPARISON: 05/10/2023 CT chest 08/05/2024. TECHNIQUE: AP view of the chest was obtained. FINDINGS: The cardiac, hilar, and mediastinal contours are normal. Stable mildly elevated left hemidiaphragm with associated linear scarring in the left base. There is haziness of the interstitium with Diomedes B lines present, suggesting interstitial edema. No pneumothorax or effusion. No focal osseous or soft tissue abnormality. Degenerative changes in both shoulder joints and throughout the spine. XR/XR chest 1V IMPRESSION: 1. Mild interstitial pulmonary edema suspected. No effusions. 2. Chronic scarring left base with mild elevation of the left hemidiaphragm. Electronically signed by: Caleb Medina MD 06/04/2025 08:36 AM EDT
--- NOTE | 2025-06-04 07:31 | ED.GENADULT ---
HPI - General Adult General Chief complaint: Dizziness Stated complaint: DIZZY GETTING OOB/FALL BACK,BP 90/60,HR 156 Time Seen by Provider: 06/04/25 07:31 History of Present Illness ED Provider: Wilfredo CRAIN narrative: The patient is an 84-year-old female with a history of hypertension, hyperlipidemia, type 2 diabetes, chronic kidney disease and who was also on anticoagulation (apixaban) for a history of a left leg DVT. She comes to the hospital by ambulance with a sense of palpitations in her chest and dizziness. She says that she has been unwell for about 3 days. She has felt very weak. She has felt palpitations in her chest. She does not know if she has had a fever. She has felt mildly short of breath. The patient lives alone. 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 The patient felt quite unwell this morning and called an ambulance and was brought to the hospital. She was found to be tachycardic. She does not know if she has a history of previous episodes of tachycardia. Related Data Home Medications ?Medication ?Instructions ?Recorded ?Confirmed aspirin 81 mg tablet,delayed 81 mg PO DAILY@1200 12/26/20 01/09/25 release (Adult Low Dose Aspirin) insulin glargine 100 unit/mL (3 16 unit subcut BEDTIME 12/26/20 01/09/25 mL) subcutaneous pen (Lantus Solostar U-100 Insulin) metformin 1,000 mg tablet 1,000 mg PO BID 12/26/20 01/09/25 atorvastatin 80 mg tablet 80 mg PO BEDTIME 12/23/21 01/09/25 blood sugar diagnostic (OneTouch #10 ea 12/23/21 08/05/24 Ultra Test strips) furosemide 40 mg tablet 40 mg PO BID 12/23/21 01/09/25 lancets 33 gauge (TRUEplus Lancets) #100 ea 12/23/21 08/05/24 pen needle, diabetic 31 gauge x #1,200 ea 12/23/21 08/05/24 5/16 (UltiCare Pen Needle) amlodipine 5 mg tablet 5 mg PO DAILY 08/05/24 01/09/25 dulaglutide 4.5 mg/0.5 mL 4.5 mg subcut MO@0900 08/05/24 01/09/25 subcutaneous pen injector (Trulicity) glipizide 10 mg tablet 10 mg PO DAILY 08/05/24 01/09/25 hydralazine 50 mg tablet 50 mg PO BIDWM 08/05/24 01/09/25 valsartan 320 mg tablet 320 mg PO DAILY 08/05/24 01/09/25 apixaban 5 mg tablet (Eliquis) 5 mg PO BID 01/09/25 01/09/25 Previous Rx's ?Medication ?Instructions ?Recorded doxycycline monohydrate 100 mg 100 mg PO BID #12 tabs 01/10/25 tablet tramadol 50 mg tablet 25 mg (1/2 x 50 mg) PO Q6H PRN 01/10/25 Pain, Severe (Pain Scale 7-10) #14 tabs morphine 15 mg immediate release 15 mg PO Q8H PRN pain (scale score 01/23/25 tablet 7-10) #9 tabs calcium carbonate 600 mg PO BID #180 ea 02/27/25 cholecalciferol (vitamin D3) 50 50 mcg PO QAM #30 caps 04/09/25 mcg (2,000 unit) capsule (Vitamin D3) Allergies Allergy/AdvReac Type Severity Reaction Status Date / Time Sulfa (Sulfonamide Allergy Intermediate RASH/ITCH Verified 06/04/25 07:44 Antibiotics) sulfamethoxazole (From Allergy Intermediate HIVES Verified 06/04/25 07:44 BACTRIM) trimethoprim (From BACTRIM) Allergy Intermediate HIVES Verified 06/04/25 07:44 oxycodone (From Percocet) Allergy Unknown Unknown Verified 06/04/25 07:44 penicillin V Allergy Unknown Unknown Verified 06/04/25 07:44 [facility] Past Medical History Medical History Hydronephrosis of right kidney Hypertension Diabetes mellitus Gram-negative bacteremia Septic shock UTI (urinary tract infection) Calculus of kidney Osteoporosis Surgical History History of surgery Hx of hemorrhoidectomy H/O colonoscopy Hx of cystoscopy Hx of lithotripsy Hx of hysterectomy Family History Family History Father Heart problem Mother No problems noted. 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 Physical Exam ED Vital Signs: Vital Signs - 24 hr 06/04/25 07:39 06/04/25 08:33 06/04/25 10:29 Temperature 97.8 F 97.9 F Pulse Rate 147 H 111 H 89 Respiratory Rate 18 18 12 Blood Pressure 104/68 117/60 134/70 Pulse Oximetry 95 95 Oxygen Delivery Method Room Air Room Air Room Air 06/04/25 12:17 Temperature 97.9 F Pulse Rate 77 Respiratory Rate 12 Blood Pressure 129/56 L Pulse Oximetry 93 Oxygen Delivery Method Room Air BMI result Body Mass Index 27.7 Medications Administered Discontinued Medications Generic Name Dose Route Start Last Admin Trade Name Freq PRN Reason Stop Dose Admin Adenosine 6 mg 06/04/25 07:55 06/04/25 09:52 Adenosine 6 Mg/2 Ml Vial IVPUSH 06/04/25 07:56 Not Given ONCE ONE Sodium Chloride 1,000 mls @ 999 mls/hr 06/04/25 08:00 06/04/25 10:23 Ns IV 06/04/25 09:00 Infused .Q1H1M [facility] Sodium Chloride 1,000 mls @ 500 mls/hr 06/04/25 10:45 06/04/25 12:31 Ns IV 06/04/25 12:44 Infused .Q2H [facility] Medical Decision Making Medical Decision Making MDM Narrative: The patient is an 84-year-old female who presents with dizziness and palpitations. She was found to be very tachycardic, possibly in SVT. The only echocardiogram I am able to find for this the patient is from May of 2019. At that time she had a left ventricular systolic function that was considered normal with the an ejection fraction between 60 and 65%. They also felt that there was mild diastolic dysfunction (grade 1). There was mild mitral valve regurgitation. The patient is on apixaban. Apparently this is a relatively new medication. She tells me that she had a small blood clot diagnosed in her left leg a few months ago at her cardiology office in [place]. Patient arrived with a significant tachycardia and an EKG possibly suggesting SVT. The patient does not seem to have a history of paroxysmal supraventricular tachycardia. I reviewed multiple old EKGs and there is 1 Ekg. from 02/27/2022 which seemed did demonstrate a similar SVT. Not much was made of this EKG in the patient's chart. As far as I can tell this EKG was taken when she was in the throes of septic shock and was being transferred to the ICU when she was tachycardic and hypotensive. Nevertheless the similarity of today's EKG from this previous EKG makes me think that the previous episode may have been SVT. However the patient does not seem to report any history of episodes of palpitation or other tachydysrhythmias and she has no previous emergency room visits for this Complaint. My plan had been to give the patient a dose of adenosine but before this could be arranged she converted to a sinus rhythm. Repeat EKG was done that showed sinus tachycardia at 111 beats per minute. The patient is a fairly vague historian and it is not clear how long the patient was likely been in this tachy dysrhythmia. it may have been as many as 3 days. She was given IV fluids. Her troponins were run and were negative. Chest x-ray suggested possibly the mild interstitial edema but she has a normal proBNP. She does not seem to have any markers of infection. She was observed for several hours during which time she seemed to feel better. Ultimately she complained of being hungry and seemed comfortable with the idea of going home. A family friend who is her closest relative was at the bedside for the 2nd half of the emergency room visit. I explained that I thought the patient had had SVT and that this could be managed as an outpatient. Since this seems to be at most only the 2nd time she has had SVT ( counting that time when she was acutely ill with sepsis as the 1st time in 2021), I explained it was not clear that any introduction of medications might be helpful. 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. She is advised to call the office tomorrow morning for a follow-up appointment. She will continue her usual medications including her apixaban. Lab Data 06/04/25 08:21 06/04/25 08:21 Labs: Lab Results 06/04/25 06/04/25 Range/Units 08:21 10:05 WBC 12.0 H (4.8-10.8) X10*3/uL RBC 4.81 (4.20-5.50) X10*6/uL Hgb 14.3 (12.0-16.0) g/dl Hct 43.5 (37.0-47.0) % MCV 90.4 (80.0-98.0) fL MCH 29.7 (27.0-33.0) pg MCHC 32.9 (31.0-35.0) g/dl RDW 13.4 (11.0-16.0) % Plt Count 346 (160-400) X10*3/uL MPV 9.5 (9.4-12.3) fL Immature Gran % (Auto) 0.4 (0.0-0.4) % Neut % (Auto) 75.6 H (45-73) % Lymph % (Auto) 15.7 L (20-40) % Dale % (Auto) 6.0 (2-11) % Eos % (Auto) 1.6 (0-4) % Baso % (Auto) 0.7 (0-2) % Lymph # (Auto) 1.9 (1.2-4.9) X10*3/uL Dale # (Auto) 0.7 (0.1-1.2) X10*3/uL Eos # (Auto) 0.2 (0.0-0.4) X10*3/uL Baso # (Auto) 0.1 (0.0-0.2) X10*3/uL Abs Immat Gran (auto) 0.05 H (0.00-0.03) X10*3/uL Absolute Neuts (auto) 9.1 H (2.0-8.3) x10*3/uL Absolute Nucleated RBC 0.000 (0.0-0.012) X10*3/uL Nucleated RBC % (auto) 0.0 (0.0-0.2) /100WBC Sodium 139 (135-145) mmol/L Potassium 3.8 (3.3-5.1) mmol/L Chloride 101 (96-108) mmol/L Carbon Dioxide 25 (22-29) mmol/L Anion Gap 17 (12-20) BUN 35 H (9-16) mg/dL Creatinine 1.40 (0.5-1.4) mg/dL Estim Creat Clear Calc 28.7 Estimated GFR 36 Random Glucose 262 H (60-115) mg/dL Calcium 9.9 D (8.4-10.2) mg/dL Magnesium 1.5 L (1.6-2.6) mg/dL Total Bilirubin 0.5 (0.0-1.0) mg/dL Direct Bilirubin 0.2 (0.0-0.5) mg/dL AST 19 (5-31) U/L ALT 15 (0-31) U/L Alkaline Phosphatase 97 (39-117) U/L Troponin I High Sens 9.3 13.8 (<3.5-17.0) ng/L C-Reactive Protein 0.38 (< or = 0.50) mg/dL NT-Pro-B Natriuret Pep 82.8 (<300) pg/mL Total Protein 7.3 (6.5-8.0) g/dL Albumin 4.2 (3.5-5.0) g/dL TSH 2.45 (0.32-4.0) uIU/mL Discharge Plan Discharge Clinical Impression: Paroxysmal supraventricular tachycardia Patient Disposition: Home, Self-Care Instructions: Supraventricular Tachycardia (ED) Additional Instructions: You seemed to have had an abnormal heart rhythm today that we call ?supraventricular tachycardia. ? Please continue all of your regular medications. Please contact your cardiology office today and explained that you have a new problem that they will need to discuss with you. My hope is they will give you an earlier appointment than your current appointment. Also follow up with your regular primary care doctor. If at any point you feel significantly worse please return to the emergency department. Prescriptions: No Action calcium carbonate 600 mg calcium (1,500 mg) tablet 600 mg PO BID Qty: 180 3RF cholecalciferol (vitamin D3) [Vitamin D3] 50 mcg (2,000 unit) capsule 50 mcg PO QAM Qty: 30 5RF Eliquis 5 mg tablet 5 mg PO BID doxycycline monohydrate 100 mg tablet 100 mg PO BID Qty: 12 0RF tramadol 50 mg Tablet 25 mg PO Q6H PRN (Reason: Pain, Severe (Pain Scale 7-10)) Qty: 14 0RF amlodipine 5 mg tablet 5 mg PO DAILY valsartan 320 mg tablet 320 mg PO DAILY hydralazine 50 mg tablet 50 mg PO BIDWM glipizide 10 mg tablet 10 mg PO DAILY Trulicity 4.5 mg/0.5 mL pen injector 4.5 mg subcut MO@0900 morphine 15 mg tablet 15 mg PO Q8H PRN (Reason: pain (scale score 7-10)) Qty: 9 0RF Rx Instructions: Partial Fill upon patient request. aspirin [Adult Low Dose Aspirin] 81 mg tablet,delayed release (DR/EC) 81 mg PO DAILY@1200 metformin 1,000 mg tablet 1,000 mg PO BID Lantus Solostar U-100 Insulin 100 unit/mL (3 mL) insulin pen 16 unit subcut BEDTIME furosemide 40 mg tablet 40 mg PO BID atorvastatin 80 mg tablet 80 mg PO BEDTIME (DME) lancets [TRUEplus Lancets] 33 gauge misc See Rx Instructions topical TID Qty: 100 Rx Instructions: As directed (DME) OneTouch Ultra Test Strip See Rx Instructions .ROUTE TID Qty: 10 Rx Instructions: As directed (DME) pen needle, diabetic [UltiCare Pen Needle] 31 gauge x 5/16 needle See Rx Instructions subcut DAILY Qty: 1200 Rx Instructions: As directed Referrals: [facility] [Outside] Louie Narayanan MD [Primary Care Provider, Medical] Interventions: ED Discharge Assessment Last Done: 06/04/25 12:17 Discharge Date/Time: 06/04/25 12:32 Print Language: Estonian
[2025-06-04 07:39] VITALS: BP 101/70; BP 104/68; PULSE 147; PULSE 150; RESP 18; TEMP 36.6; O2SAT 95; O2SAT 96; BMI 27.7
--- OUTSIDE RECORDS SUMMARY | 2025-06-04 08:00 | XMS_ITS | Encounter Summary ---
Author Organization [employer] Address [address] [place] [address] Care Team Providers Care Clinical Esthetician Name Role Phone Louie Gutierrez MD Primary Care Provide r Encounter Details Date Type Department Care Team ([facility] Contact Info) Description 12/07/2022 Orders Only [facility] [address], [place] [phone] Roro Gregg LPN Social History Tobacco Use [...] 10:15 AM EST Office Visit [facility] [address] [place] [address] Malcolm, Jennifer [address] [place] [address] documented as of this encounter Visit Diagnoses Not on filedocumented in this encounter Care Teams Clinical Esthetician Relationship Specialty Start Date End Date Louie Gutierrez MD [address] [place] [address] PCP - General Internal Medicine 06/13/13 Fatimah MARI 08/09/24 documented as of this encounter
--- OUTSIDE RECORDS SUMMARY | 2025-06-04 08:00 | XMS_ITS | Clinical Summary ---
Author Organization [employer] Address [address] [facility] 7[address] [place] [address] Care Team Providers Care Site Manager Name Role Phone Louie Gutierrez MD [...] complication, with long-term current use of insulin ([facility]) INJECT ONE PEN (= 4.5MG) SUBCUTANEOUSLY ONCE A WEEK DIRECTED 2 mL 11 025 Active TRUEplus Lancets 33G miscIndicatio ns:Type 2 diabetes mellitus without complication, with long-term current use of insulin ([facility]) USE TO TEST BLOOD SUGAR THREE TIMES DAILY DIRECTED 100 each 11 025 Active Easy Touch Pen [place] 31G X 8 MM misc USE DIRECTED ONCE DAILY 100 each 3 025 Active metFORMIN (Glucophage) 1000 MG tablet TAKE 1 TABLET BY MOUTH TWICE DAILY IN THE MORNING AND IN THE EVENING WITH FOOD 180 tablet 025 Active OneTouch Ultra Test test stripIndicati ons:Type 2 diabetes mellitus without complication, with long-term current use of insulin ([facility]) TEST BLOOD SUGAR THREE TIMES DAILY 100 [...] bone, evaluated in the past by an concrete buster operator (Dr Banuelos) who treated her initially with Actonel but she could not tolerate subsequently she was given an infusion of Reclast and remains on Vitamin D pt was lost for f/u with Dr Banuelos. Pt was seen by a different Mooner (Dr Ferrer)who reviewed previous notes from Dr [...] cellulitis of right lower leg Admitted to [facility] 01/09-01/10 after she presented with presumptive cellulitis [...] Pt is under the care of [facility] who do her vascular studies ([phone]) PreviuslyI Extended her Doxy BID x 10 [...] cellulitis of right lower leg Admitted to [facility] 01/09-01/10 after she presented with presumptive cellulitis [...] Pt is under the care of [facility]iology [facility] who do her vascular studies ([phone]) Previus visit I Extended her Doxy BID [...] cellulitis of right lower leg Admitted to [facility] 01/09-01/10 after she presented with presumptive cellulitis [...] Pt is under the care of [facility] who do her vascular studies ([phone]) Previus visit I Extended her Doxy BID [...] right leg She was recently admitted to [facility] 01/09-01/10 after she presented with cellulitis of [...] PM EDT): S/o excision by Mian Lara [employer] NETWORK SPECIALIST Pathology showed: Variable epidermal acanthosis with [...] Plan (05/23/2025 8:41 AM EDT): Diagnosed by [facility]. Last seen by [facility] 08/30/2023 Assessment & Plan (09/01/2023 9:28 AM EST): Diagnosed by [facility]. Last seen by [facility] 08/30/2023 Diabetes mellitus, type II 05/11/2012 [...] last done on: 01/21/[address] Cotton (petal cutter) measured her IOP and was stable so [...] last done on: 01/21/[address] Cotton (petal cutter) measured her IOP and was stable so [...] last done on: 01/21/[address] Cotton (petal cutter) measured her IOP and was stable so [...] last done on: 01/21/[address] Cotton (petal cutter) measured her IOP and was stable so [...] was evident the time she was in [place] because her blood sugars were consistently high and now that she is back blood sugars have normalized Eye exam was last done on: 01/21/[address] Cotton (petal cutter) measured her IOP and was stable so [...] last done on: 01/21/[address] Cotton (petal cutter) measured her IOP and was stable so [...] last done on: 01/21/[address] Cotton (petal cutter) measured her IOP and was stable so [...] last done on: 01/21/[address] Cotton (petal cutter) measured her IOP and was stable so [...] last done on: 01/21/[address] Cotton (petal cutter) measured her IOP and was stable so [...] note pt had a cardiac cath at [facility] on 05/20/2009 There was NO angiographic evidence of CAD. seen in the past at [facility]. Plan: 3 month follow up Assessment & [...] note pt had a cardiac cath at [facility] on 05/20/2009 There was NO angiographic evidence of CAD. seen in the past at [facility]. Plan: 4 week follow up, awaiting skin [...] note pt had a cardiac cath at [facility] on 05/20/2009 There was NO angiographic evidence of CAD. seen in the past at [facility]. PREVIOUSLY ADDRESSED: THE INFORMATION BELOW HAS BEEN COPIED, PASTED AND UPDATED FROM PREVIOUS NOTES. Chest discomfort (R07.89). Resolved, pt ended up having an outpt stress test 05/23/2019 that was negative for ischemia. Of note pt had a cardiac cath 2008 at [facility] that was unremarkable. Assessment & Plan (10/09/2024 [...] note pt had a cardiac cath at [facility] on 05/20/2009 There was NO angiographic evidence of CAD. seen in the past at [facility]. PREVIOUSLY ADDRESSED: THE INFORMATION BELOW HAS BEEN COPIED, PASTED AND UPDATED FROM PREVIOUS NOTES. Chest discomfort (R07.89). Resolved, pt ended up having an outpt stress test 05/23/2019 that was negative for ischemia. Of note pt had a cardiac cath 2008 at [facility] that was unremarkable. 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 Pt with a Hx. of ? Paget's disease of the bone, evaluated in the past by an concrete buster operator (Dr Banuelos) who treated her initially with Actonel but she could not tolerate subsequently she was given an infusion of Reclast and remains on Vitamin D pt was lost for f/u with Dr Banuelos. Last visit we scheduled a f/u appointment. Pt was seen by a different Mooner (Dr Ferrer)who review previous notes from Dr Banuelos and new bone scan, and lab data. She was seen on 11/08/2012 based on his impression he DID NOT think pt had Paget's disease. She was last seen by [facility] Endocr[facility]ology on 02/16/2013 (Dr Ferrer) He diagnosed [...] note pt had a cardiac cath at [facility] on 05/20/2009 There was NO angiographic evidence of CAD. seen in the past at [facility]. PREVIOUSLY ADDRESSED: THE INFORMATION BELOW HAS BEEN COPIED, PASTED AND UPDATED FROM PREVIOUS NOTES. Chest discomfort (R07.89). Resolved, pt ended up having an outpt stress test 05/23/2019 that was negative for ischemia. Of note pt had a cardiac cath 2008 at [facility] that was unremarkable. 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 Pt with a Hx. of ? Paget's disease of the bone, evaluated in the past by an concrete buster operator (Dr Banuelos) who treated her initially with Actonel but she could not tolerate subsequently she was given an infusion of Reclast and remains on Vitamin D pt was lost for f/u with Dr Banuelos. Last visit we scheduled a f/u appointment. Pt was seen by a different Mooner (Dr Ferrer)who review previous notes from Dr Banuelos and new bone scan, and lab data. She was seen on 11/08/2012nd based on his impression he DID NOT think pt had Paget's disease. She was last seen by [facility] Endocr[facility]ology on 02/16/2013 (Dr Ferrer) He diagnosed [...] note pt had a cardiac cath at [facility] on 05/20/2009 There was NO angiographic evidence of CAD. seen in the past at [facility]. PREVIOUSLY ADDRESSED: THE INFORMATION BELOW HAS BEEN COPIED, PASTED AND UPDATED FROM PREVIOUS NOTES. Chest discomfort (R07.89). Resolved, pt ended up having an outpt stress test 05/23/2019 that was negative for ischemia. Of note pt had a cardiac cath 2008 at [facility] that was unremarkable. 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 Pt with a Hx. of ? Paget's disease of the bone, evaluated in the past by an concrete buster operator (Dr Banuelos) who treated her initially with Actonel but she could not tolerate subsequently she was given an infusion of Reclast and remains on Vitamin D pt was lost for f/u with Dr Baunelos. Last visit we scheduled a f/u appointment. Pt was seen by a different Mooner (Dr Ferrer)who review previous notes from Dr Banuelos and new bone scan, and lab data. She was seen on 11/08/2012nd based on his impression he DID NOT think pt had Paget's disease. She was last seen by [facility] Endocrinology on 02/16/2013 (Dr Ferrer) He diagnosed [...] note pt had a cardiac cath at [facility] on 05/20/2009 There was NO angiographic evidence of CAD. seen in the past at [facility]. PREVIOUSLY ADDRESSED: THE INFORMATION BELOW HAS BEEN COPIED, PASTED AND UPDATED FROM PREVIOUS NOTES. Chest discomfort (R07.89). Resolved, pt ended up having an outpt stress test 05/23/2019 that was negative for ischemia. Of note pt had a cardiac cath 2008 at [facility] that was unremarkable. 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 Pt with a Hx. of ? Paget's disease of the bone, evaluated in the past by an concrete buster operator (Dr Banuelos) who treated her initially with Actonel but she could not tolerate subsequently she was given an infusion of Reclast and remains on Vitamin D pt was lost for f/u with Dr Banuelos. Last visit we scheduled a f/u appointment. Pt was seen by a different Mooner (Dr Ferrer)who review previous notes from Dr Banuelos and new bone scan, and lab data. She was seen on 11/08/2012 based on his impression he DID NOT think pt had Paget's disease. She was last seen by [facility] Endocrinology on 02/16/2013 (Dr Ferrer) He diagnosed [...] note pt had a cardiac cath at [facility] on 05/20/2009 There was NO angiographic evidence of CAD. seen in the past at [facility]. PREVIOUSLY ADDRESSED: THE INFORMATION BELOW HAS BEEN [...] pt had a cardiac cath 2009 at [facility] that was unremarkable. 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 Examination suggestive of this Plan: Nizoral shampoo, Neutrogenal [place] tar shampoo extra strength Referral to Dr [...] stage (365.10), Chronic. Recently diagnosed by [facility]. last seen 03/10/2012. They recommended to continue to follow with dr. 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 Pt with a Hx. of ? Paget's disease of the bone, evaluated in the past by an concrete buster operator (Dr Banuelos) who treated her initially with Actonel but she could not tolerate subsequently she was given an infusion of Reclast and remains on Vitamin D pt was lost for f/u with Dr Banuelos. Last visit we scheduled a f/u appointment. Pt was seen by a different Mooner (Dr Ferrer)who review previous notes from Dr Banuelos and new bone scan, and lab data. She was seen on 11/08/2012nd based on his impression he DID NOT think pt had Paget's disease. She was last seen by [facility]ocrinology on 02/16/2013 (Dr Ferrer) He diagnosed [...] LDL-C. Ciaran SS et al. HITESH. 2013;310(19): 6148-9232 (http://education.Tinitell/faq/NPE738) Chol/HDLC Ratio <5.0 (calc) 3.6 3.0 5.1 [...] Description 05/23/2025 9:15 AM EDT Office Visit [facility] [address] [place] [phone] Louie Gutierrez MD Type 2 diabetes mellitus without complication, with long-term current use of insulin (HCC) (Primary Dx); Mixed hyperlipidemia; Open-angle glaucoma, unspecified glaucoma stage, unspecified laterality, unspecified open-angle glaucoma type; Spongiotic dermatitis; Primary hypertension; Intertrigo; Preventative health care; Encounter for immunization 05/23/2025 Travel 05/22/2025 Telephone [facility] [address] [place] [address] Louie Gutierrez MD chart prep 05/07/2025 Refill [facility] [address] [place] [address] Louie Gutierrez MD 04/12/2025 Refill [facility] [address] [place] [address] Deborah Good NP Type 2 diabetes mellitus without complication, with long-term current use of insulin ([facility]) 04/05/2025 10:00 AM EDT Office Visit [facility] [address] [place] [address] Amado Lynch MD Irritant contact dermatitis, unspecified trigger (Primary Dx) 04/05/2025 Travel 03/27/2025 Refill [facility] [address] [place] [address] Louie Gutierrez MD 03/25/2025 Refill [facility] [address] [place] [address] Dena Christianson MD 03/17/2025 Refill [facility] [address] [place], [place] [phone] Louie Gutierrez MD Type 2 diabetes mellitus without complication, with long-term current use of insulin ([facility]) from Last 3 Months Immunizations Immunization Administration [...] 10:15 AM EST Office Visit [facility] ADULT [facility] [address] [place] [address] Malcolm, Jennifer [address] [place] [address] Health Maintenance Due Date Last Done Comments Diabetes: Foot Exam 1950 Eye Exam 1950 RSV Patients and Patients Aged 60 years or older (1 - 1-dose 75+ series) 2016 Zoster Vaccines (3 of 3) 08/12/2022 06/17/2022, 08/23 Dental Oral Exam 11/05/2024 05/07/2024, , 07/02/2022, Additional history exists COVID-19 Vaccine ( season) 2025 11/14/2020, 10/17/2020 Dental X-Ray: Bitewings [...] Additional history exists Tobacco Screening 02/19/2026 02/19/2025 Lipid Panel 05/23/2026 05/23/2025, 01/21, 01/28/2022, Additional history exists Dental X-Ray: Full Mouth 05/08/2027 05/07/2024, 02/0 09/2020 DTaP/Tdap/Td Vaccines (3 - Td or [...] Procedure Name Priority Date/Time Associated Diagnosis Comments LIPID PANEL, STANDARD Routine 05/23/2025 10:26 AM EDT Mixed hyperlipidemia POCT GLYCATED HEMOGLOBIN, TOTAL Routine 05/23/2025 9:16 [...] complication, with long-term current use of insulin ([facility]) BI MAMMOGRAM SCREENING TOMOSYNTHESIS BILATERAL Routine 09/13/2024 8:38 AM EST INTRAORAL - COMPLETE SERIES OF RADIOGRAPHIC IMAGES Routine 05/07/2024 8:00 AM EDT PERIODIC ORAL EVALUATION - ESTABLISHED PATIENT Routine 05/07/2024 8:00 AM EDT from Last 3 Months or Most Recently Relevant to Health Maintenance Results * (ABNORMAL) Lipid Panel, Standard (05/23/2025 10:26 AM EDT) Triglycerides 166(H) <150 mg/dL [facility] Comment:Desirable Triglyceri de: less than 150 mg/dLBorderline High Triglyceride 150-199 mg/dLHigh Triglyceride: 200-499 mg/dLVery High Triglyceride: greater than or equal to 5OO mg/dL Cholesterol 211(H) <200 mg/dL [facility] Comment:Desirable Cholestero l: less than 200 mg/dLBorderline High Cholesterol: 200-239 mg/dLHigh Cholesterol: greater than 239 mg/dL LDL Cholesterol Calculated 131(H) <100 mg/dL [facility] Comment:Desirable LDL: less than 100 mg/dLNear Optimal/Above Optimal LDL: 110- 129 mg/dLBorderline High LDL: 130-159 mg/dLHigh LDL: 160-189 mg/dLVery High LDL: greater than or equal to 190 mg/dL HDL Cholesterol 47 >40 mg/dL [facility] Comment:Desirable HDL: great er than 40 mg/dL Note: This HDL assay may give artificially low results in patients with liver disease. Blood Venous blood specimen / Unknown 05/23/2025 10:26 AM EDT 05/23/2025 11:26 AM EDT us Louie Whalen MD LAB BLOOD ORDERABLES Final Result [facility] [address] [place] [address] [phone] * (ABNORMAL) POCT Hgb A1c (05/23/2025 9:16 [...] 8:36 AM EST) Creatinine, Urine 86.79 mg/dL [facility] Microalbumin Urine 9.0 mg/L [facility] Microalbum Creatinine Ratio Ur 10.3 <30 ug/mg cr [facility] Comment:Albumin/Creatinine R atio Reference Ranges: Normal: < 30 ug/mg creatinine Microalbuminuria: 30 - 300 ug/mg creatinineClinical Albuminuria: > 300 ug/mg creatinine Urine (Urine, Random) 10/26/2024 8:36 AM EST 10/26/2024 8:54 AM EST us Louie Whalen MD LAB URINE ORDERABLES Final Result [facility] [address] [place] [address] [phone] * BI Mammogram Screening Tomosynthesis Bilateral (09/13/2024 8:38 AM EST) Anatomical Region Laterality Modality Breast Bilateral Mammography 09/13/2024 8:38 AM EST Narrative 09/21/2024 4:45 PM EST [facility] [address] [place] [address] Mammography Report Signed Patient: Yusra Rodriguez MR#: [id number] 3 : 1940 Acct:[id number] Age/Sex: 83 / F ADM Date: 09/13/24 Loc: HO.MAMMO Attending Dr: Louie Narayanan MD Ordering Physician: Louie Narayanan MD Resu lts: 1Negative Date of Service: 09/13/24 Follow Up: 1 Year From Orig inal Mammogram Procedure(s): MM tomosynthesis screening BI Accession Number(s): [id number] cc: Louie Narayanan MD EXAMINATION: MM SCREENING [...] Navarro DO in OV> 09/21/24 1642 DD/ 7 TD/TT: 09/13/2453 Rodeo Clown: Procedure Note Donotuseinterpreter, Image - 09/21/2024 [facility] [address] [place] [address] Dr. [place], [place]ADI [address] Mammography Report Signed Patient: Yusra Rodriguez JMR#: [id number] 3 : 2Acct:[id number] Age/Sex: 83 / FADM Date: 09/13/24 Loc: HO.MAMMO Attending Dr: Loiue Narayanan MD Ordering Physician: Louie Narayananu lts: 1Negative Date of Service: 09/13/24Follow Up: 1 Year From Orig inal Mammogram Procedure(s): MM tomosynthesis screening BI Accession Number(s): [id number] cc: Louie Narayanan MD EXAMINATION: MM SCREENING [...] by Judi Navarro DO in OV> 09/21/24 164 DD/ 7 TD/TT: 09/13/24 0853 Rodeo Clown: Louie Whalen MD IMG BI PROCEDURES Fin al Result from Last 3 Months or Most Recently Relevant to Health Maintenance Insurance DENTAL [place] [address] Care Teams Site Manager Relationship Specialty Start Date End Date Louie Gutierrez MD [address] [place] [id number] PCP - General Internal Medicine 06/13/13 [facility] MARI 08/09/24
--- OUTSIDE RECORDS SUMMARY | 2025-06-04 08:00 | XMS_ITS | Encounter Summary ---
Author Organization [employer] Address [address] [place] [address] 7 [place] [address] Care Team Providers Care Alternative Energy Technician Name Role Phone Louie Gutierrez MD Primary Care Provide r Encounter Details Date Type Department Care Team (Latest Contact Info) Description 07/02/2022 Abstract [facility] CONVERSIONS Dental, Provider, DDS Social History Tobacco [...] Office Visit [facility] ADULT DENTAL [address] [place] [address] Malcolm, Jennifer [address] [place] [address] documented as of this encounter Visit Diagnoses Not on filedocumented in this encounter Care Teams Alternative Energy Technician Relationship Specialty Start Date End Date Louie Gutierrez MD [address] [place] [address] PCP - General Internal Medicine 06/13/13 [facility] 08/09/24 documented as of this encounter
--- OUTSIDE RECORDS SUMMARY | 2025-06-04 08:00 | XMS_ITS | Encounter Summary ---
Author Organization [employer] Address [address] [facility] [address]t [place] [address] Care Team Providers Care Physiognomist Name Role Phone Louie Gutierrez MD Primary Care Provide r Encounter Details Date Type Department Care Team (Late st Contact Info) Description 02/06/2025 Orders Only [facility] [address] [place] [address] ProviderReggie MD Social History Tobacco Use Types [...] Office Visit [facility] ADULT DENTAL [address] [place] [address] Malcolm, Jennifer [address] [place] [address] documented as of this encounter Procedures Procedure [...] documented as of this encounter Care Teams Physiognomist Relationship Specialty Start Date End Date Louie Gutierrez MD [address] [place] [address] PCP - General Internal Medicine 06/13/13 Fat[facility] GOODIWNA 08/09/24 documented as of this encounter
--- OUTSIDE RECORDS SUMMARY | 2025-06-04 08:00 | XMS_ITS | Encounter Summary ---
Author Organization [employer] Address [address] [facility] 7t [place] [address] Care Team Providers Care Manager Proposal Name Role Phone Louie Gutierrez MD Primary Care Provide r Reason for Visit * Reason Comments Med Refill Encounter Details Date Type Department Care Team ([facility] st Contact Info) Description 09/01/2023 Refill [facility] [address] [place] [address] Louie Gutierrez MD [address] [place], [place] [phone] Social History Tobacco Use Types Packs/Day Years [...] Description 07/09/2025 10:15 AM EST Office Visit [facility] ADULT DENTAL [address] [place] [address] Malcolm, Jennifer [address] [place] [address] documented as of this encounter Visit Diagnoses Not on filedocumented in this encounter Additional Health Concerns Assessment Noted Time PHQ-9 Depression Total Score: 0 02/04/20 23 2:31 PM EDT documented as of this encounter Care Teams Manager Proposal Relationship Specialty Start Date End Date Louie Gutierrez MD [address] [place] [address] PCP - General Internal Medicine 06/13/13 [facility] GOODWINA 08/09/24 documented as of this encounter
--- OUTSIDE RECORDS SUMMARY | 2025-06-04 08:00 | XMS_ITS | Encounter Summary ---
Author Organization [employer] Address [address] [place] [address] 7 [place] [address] Care Team Providers Care Machine Icer Name Role Phone Louie Gutierrez MD Primary Care Provide r Encounter Details Date Type Department Care Team (Latest Contact Info) Description 10/20/2020 Abstract [facility] CONVERSIONS Dental, Provider, DDS Social History [...] Description 07/09/2025 10:15 AM EST Office Visit [facility] ADULT DENTAL [address] [place] [address] Malcolm, Jennifer [address] [place] [address] documented as of this encounter Visit Diagnoses Not on filedocumented in this encounter Care Teams Machine Icer Relationship Specialty Start Date End Date Louie Gutierrez MD [address] [place] [address] PCP - General Internal Medicine 06/13/13 [facility] 08/09/24 documented as of this encounter
--- OUTSIDE RECORDS SUMMARY | 2025-06-04 08:00 | XMS_ITS | Encounter Summary ---
Author Organization [employer] Address [address] [facility] 7 [place] [address] Care Team Providers Care Toolsmith Name Role Phone Louie Gutierrez MD Primary Care Provide r Reason for Visit * Reason Onset Date Comments Nurse Triage 01/02/2025 Encounter Details Date Type Department Care Team ([facility] st Contact Info) Description 01/02/2025 Telephone [facility] MEDICINE [address] [place] [address] Louie Gutierrez MD [address] [place] [address] Nurse Triage Social History Tobacco Use Types [...] 01/02/2025 1:58 PM EDT Triage call to [phone] Pt daughter from [place] has come to help Pt. Pt reports fall 3 weeks ago . Pt was going down stairs to do laundry, put on flip flops and proceeded to slip on the stairs. Pt reports falling onto right knee and abrasion occurred. Pt was seen in [facility] 12/12/24. Tdap was givenat that time. Wound was cleaned and antibiotic ointment applied , Pt went home with some dressing material and prescription for antibiotic ointment. Pt is calling today with reports of right knee abrasion with possible infection. Area is reddened with pus formation. Pt is a diabetic. Pt was given wound referral to [facility] [place] but, never went. Pt is [...] the fall The caller accepted this outcome. [phone] bahamian documented in this encounter Plan of Treatment Upcoming Encounters Date Type Department Care Team (Late st Contact Info) Description 07/09/2025 10:15 AM EST Office Visit [facility] ADULT DENTAL [address] [place] [address] MalcolmUlisesJennifer [address] [place] [address] documented as of this encounter Visit Diagnoses Not on filedocumented in this encounter Additional Health Concerns Assessment Noted Time PHQ-9 Depression Total Score: 1 05/31/20 24 1:55 PM EDT documented as of this encounter Care Teams Toolsmith Relationship Specialty Start Date End Date Louie Gutierrez MD [address] [place] [address] PCP - General Internal Medicine 06/13/13 Fatimah MARI 08/09/24 documented as of this encounter
[2025-06-04 08:26] LABS: MANUAL DIFF FLAG NO
[2025-06-04 08:30] LABS: Hematocrit 43.5 % (37.0-47.0); Hemoglobin 14.3 g/dl (12.0-16.0); Imm Gran Abs Auto 0.05 X10*3/uL (0.00-0.03); Imm Gran Pct Auto 0.4 % (0.0-0.4); Lymphocytes Absolute Auto 1.9 X10*3/uL (1.2-4.9); Mean Corpuscular HGB Conc 32.9 g/dl (31.0-35.0); Mean Corpuscular Hemoglobin 29.7 pg (27.0-33.0); Mean Corpuscular Volume 90.4 fL (80.0-98.0); NRBC Abs Auto 0.000 X10*3/uL (0.0-0.012); NRBC Pct Auto 0.0 /100WBC (0.0-0.2); Platelet Count 346 X10*3/uL (160-400); Red Blood Count 4.81 X10*6/uL (4.20-5.50); White Blood Count 12.0 X10*3/uL (4.8-10.8)
[2025-06-04 08:33] VITALS: BP 117/60; PULSE 111; RESP 18
--- NOTE | 2025-06-04 08:34 | PC.NURSE ---
Heart rate dropped to 110's at about 0825 while starting 2nd IV. Pt's blood pressure 128/69. resting comfortable on room air.
--- NOTE | 2025-06-04 08:35 | ECG_ITS ---
Test Reason : chane in rythym Blood Pressure : */* mmHG Vent. Rate : 111 BPM Atrial Rate : 111 BPM P-R Int : 180 ms QRS Dur : 82 ms QT Int : 352 ms P-R-T Axes : 40 -8 34 degrees QTcB Int : 478 ms Sinus tachycardia with frequent Premature ventricular complexes Otherwise normal ECG When compared with ECG of 04-Jun-2025 07:37, No significant change was found Referred By: Wild Villalobos Electronically Signed By: Fran Jordan
[2025-06-04 08:57] LABS: Alanine Aminotransferase 15 U/L (0-31); Albumin Level 4.2 g/dL (3.5-5.0); Alkaline Phosphatase 97 U/L (39-117); Anion Gap 17 (12-20); Aspartate Amino Transferase 19 U/L (5-31); Blood Urea Nitrogen 35 mg/dL (9-16); Calcium 9.9 mg/dL (8.4-10.2); Carbon Dioxide 25 mmol/L (22-29); Chloride 101 mmol/L (96-108); Creatinine Clr Calc Pharmacy 28.7; Estimated Glomerular Filt Rate 36; Magnesium 1.5 mg/dL (1.6-2.6); Potassium 3.8 mmol/L (3.3-5.1); Sodium 139 mmol/L (135-145); Total Protein 7.3 g/dL (6.5-8.0)
[2025-06-04 09:04] LABS: Troponin-I High Sensitivity 9.3 ng/L (<3.5-17.0)
--- NOTE | 2025-06-04 09:53 | PC.NURSE ---
Pt's heart rate 96. Resting quietly
[2025-06-04 10:08] LABS: NT Pro B Type Natriuretic Pept 82.8 pg/mL (<300)
[2025-06-04 10:22] LABS: Thyroid Stimulating Hormone 2.45 uIU/mL (0.32-4.0)
[2025-06-04 10:29] VITALS: BP 134/70; PULSE 89; RESP 12; TEMP 36.6; O2SAT 95
[2025-06-04 10:33] LABS: Troponin-I High Sensitivity 13.8 ng/L (<3.5-17.0)
[2025-06-04 12:17] VITALS: BP 129/56; PULSE 77; RESP 12; TEMP 36.6; O2SAT 93
--- NOTE | 2025-06-04 12:31 | PC.NURSE ---
Pt refused wheelchair. family member will assist her in dressing and ambulating out.
== END 2025-06-04 12:32 | disposition home or self-care (01) ==
PROVIDERS: Emergency Provider Emergency Medicine; PCP Internal Medicine
DX: I47.19 Other supraventricular tachycardia (principal); R42 Dizziness and giddiness; I12.9 Hypertensive chronic kidney disease with stage 1 through stage 4 chronic kidney disease, or unspecified chronic kidney disease; E11.22 Type 2 diabetes mellitus with diabetic chronic kidney disease; N18.9 Chronic kidney disease, unspecified; I49.3 Ventricular premature depolarization; R06.02 Shortness of breath; J81.1 Chronic pulmonary edema; R00.2 Palpitations; E78.5 Hyperlipidemia, unspecified; Z86.718 Personal history of other venous thrombosis and embolism; Z79.01 Long term (current) use of anticoagulants
CPT/HCPCS: 36415; 71045; 80048; 80076; 83735; 83880; 84443; 84484; 85025; 86140; 93005; 96360; 96361; 99285

== ENCOUNTER → 2025-06-04 07:37 | Outpatient (BNV) | payer OTHER, SELFPAY | PROVIDERS: Emergency Provider Emergency Medicine; PCP Internal Medicine; Visit Provider Internal Medicine Cardiovascular Disease | DX: I49.3 Ventricular premature depolarization (principal); R00.0 Tachycardia, unspecified | CPT/HCPCS: 93010 ==

== ENCOUNTER → 2025-06-04 07:53 | Outpatient (BNV) | payer OTHER, SELFPAY | PROVIDERS: Emergency Provider Emergency Medicine; PCP Internal Medicine; Visit Provider Radiology Diagnostic Radiology | DX: J98.6 Disorders of diaphragm (principal) | CPT/HCPCS: 71045 ==

== ENCOUNTER 2025-07-17 09:25 | Outpatient (REF) | payer OTHER, SELFPAY ==
--- OUTSIDE RECORDS SUMMARY | 2024-08-02 09:00 | XMS_ITS | Encounter Summary ---
Author Organization [employer] Address [address] [facility] 7 [place] [address] Care Team Providers Care Outreach Professional Name Role Phone Louie Gutierrez MD Primary Care Provide r Reason for Visit * Reason Comments Dentures Upper partial delive ry Encounter Details Date Type Department Care Team ([facility] st Contact Info) Description 08/02/2024 9:00 AM EST Office Visit [facility] [address] [place] [address] Herber Zelaya, KASANDRA [address] [place] [address] Social History Tobacco Use Types Packs/Day Years Used Date Smoking Tobacco: Never Passive Smoke Exposure: Never Smokeless Tobacco: Never Alcohol Use Standard Drinks/Week Comments Never 0 (1 standard drink = 0.6 oz pur e alcohol) Depression Answer Date Recorded Patient Health Questionnaire-9 Score 1 05/31/2024 Patient Health Questionnaire-9 Score 1 05/31/2024 Last PHQ-9: Questionnaire Data Not on file 1 Housing Stability Answer Date Recorded What is your housing situation today? I have carlos pitts 06/07/[address] you li ve. Do you have problems with any of the following? None of the above 06/07/2023 Food Insecurity Answer Date Recorded Within the past 12 months, y ou worried that your food would run out before you got money to buy more: Never True 06/07/2023 Within the past 12 months,th e food you bought just didn't last and you didn't have enough money to get more: Never True Transportation Answer Date Recorded In the past 12 months, has l ack of transportation kept you from medical appts, meetings, work or from getting things needed for daily living? No 06/07/2023 Utilities Answer Date Recorded In the past 12 months, has t he electric, gas, oil or water company threatened to shut off services in your home? No 06/07/2023 Depression Answer Date Recorded Patient Health Questionnaire-2 Score 0 05/31/2024 Internet Access Answer Date Recorded Internet Access Q1 I am not sure 10/09/2024 Internet Access Q2 Not on file 10/09/2024 Comments No Sex and Gender Information Value Date Recorded Sex Assigned at Female 06/21/2022 10:14 AM EDT Legal Sex Female 10:14 AM EDT Gender Identity Female 06/21/2022 10:14 AM EDT Sexual Orientation Straight 06/21/2022 10 :14 AM EDT documented as of this encounter Last Filed Vital Signs Vital Sign Reading Time Taken Comments Blood Pressure 122/80 08/02/2024 8:01 AM EST Pulse 67 08/02/2024 8:01 AM EST Temperature - - Respiratory Rate - - Oxygen Saturation - - Inhaled Oxygen Concentration - - Weight - - Height - - Body Mass Index - - documented in this encounter Functional Status * Over the last 2 weeks, how often have you been bothered by any of the following problems? Question Answer Date of Assessment Author Feeling nervous, anxious, or on edge 2 01/20 10:17 AM EDT Srinivas Fay MA Not being able to stop or co ntrol worrying 2 01/31/2025 10:17 AM EDT Srinivas Fay M A Worrying too much about diff erent things 2 01/31/2025 10:17 AM EDT Srinivas Fay M A Trouble relaxing 2 01/31/2025 10:17 AM EDT Srinivas Fay MA Being so restless that it is hard to sit still 0 01/31/2025 10:17 AM CHINMAYT Srinivas Fay M A Becoming easily annoyed or irritable 0 01/20 10:17 AM CHINMAYT Srinivas Fay MA Feeling afraid as if somethi ng awful might happen 1 01/31/2025 10:17 AM EDT Fay, Louyomy, M A DIANNE-7 Total Score 9 01/31/2025 10:17 AM EDT Srinivas Fay MA documented as of this encounter Progress Notes * Herber Zelaya DMD - 08/02/2024 9:00 AM EST Delivery of P/. Pt likes the esthetic and feels fine NV: adjustment if needed Mayda documented in this encounter Plan of Treatment Upcoming Encounters Date Type Department Care Team (Late st Contact Info) Description 09/03/2025 1:15 PM EST Office Visit [facility] [address] [place] [address] Louie Gutierrez MD [address] [place] [address] 01/07/2026 10:15 AM EDT Office Visit [facility] [address] [place] [address] Malcolm, Jennifer [address] [place] [address] documented as of this encounter Goals Goal Patient Goal Type Associated Problems Recent Progress Patient-Stated? Author Help patients manage their type 2 diabetes Care Plan Help patients manage their type 2 diabetes No John, Estephania Weekly blood pressure task Care Plan Weekly blood pressure task No John, Estephania Help patients manage their type 2 diabetes Care Plan Help patients manage their type 2 diabetes No John, Estephania Patient has chronic kidney disease Care Plan Patient has chronic kidney disease No John, Estephania Weekly blood pressure task Care Plan Weekly blood pressure task No John, Estephania Patient has chronic kidney disease Care Plan Patient has chronic kidney disease No John, Estephania Weekly blood pressure task Care Plan Weekly blood pressure task No Malcolm, Jennifer Weekly blood pressure task Care Plan Weekly blood pressure task No Malcolm, Jennifer Patient has chronic kidney disease Care Plan Patient has chronic kidney disease No Malcolm, Jennifer Patient has chronic kidney disease Care Plan Patient has chronic kidney disease No Malcolm, Jennifer Weekly blood pressure task Care Plan Weekly blood pressure task No Herber Zelaya DMD Weekly blood pressure task Care Plan Weekly blood pressure task No Herber Zelaya DMD Patient has chronic kidney disease Care Plan Patient has chronic kidney disease No Herber Zelaya DMD Patient has chronic kidney disease Care Plan Patient has chronic kidney disease No Herber Zelaya DMD Weekly blood pressure task Care Plan Weekly blood pressure task No Herber Zelaya DMD Weekly blood pressure task Care Plan Weekly blood pressure task No Herber Zelaya DMD Patient has chronic kidney disease Care Plan Patient has chronic kidney disease No Herber Zelaya DMD Patient has chronic kidney disease Care Plan Patient has chronic kidney disease No Herber Zelaya DMD documented as of this encounter Procedures Procedure Name Priority Date/Time Associated Diagnosis Comments 2,3,13,14,15 MAXILLARY PARTIAL DENTURE - RESIN BASE (INCLUDING, RETENTIVE/CLASPING MATERIALS, RESTS, AND TEETH) Routine 08/02/2024 9:00 AM EST CASE PRESENTATION, DETAILED AND EXTENSIVE TREATMENT PLANNING Routine 08/02/2024 9:00 AM EST documented in this encounter Visit Diagnoses Not on filedocumented in this encounter Additional Health Concerns Active Problems Noted Date Diagnosed Date Help patients manage their type 2 diabetes 07/03 Weekly blood pressure task 07/03/2025 Help patients manage their type 2 diabetes 07/03 Patient has chronic kidney disease 07/03/2025 Weekly blood pressure task 07/03/2025 Patient has chronic kidney disease 07/03/2025 Weekly blood pressure task 07/09/2025 Weekly blood pressure task 07/09/2025 Patient has chronic kidney disease 07/09/2025 Patient has chronic kidney disease 07/09/2025 Weekly blood pressure task 07/10/2025 Weekly blood pressure task 07/10/2025 Patient has chronic kidney disease 07/10/2025 Patient has chronic kidney disease 07/10/2025 Weekly blood pressure task 07/10/2025 Weekly blood pressure task 07/10/2025 Patient has chronic kidney disease 07/10/2025 Patient has chronic kidney disease 07/10/2025 Assessment Noted Time PHQ-9 Depression Total Score: 1 05/31/20 24 1:55 PM EDT documented as of this encounter Care Teams Outreach Professional Relationship Specialty Start Date End Date Louie Gutierrez MD [address] [place] [id number] PCP - General Internal Medicine 06/13/13 Fatimah MARI 08/09/24 documented as of this encounter
--- NOTE | ~2025-07-17 | US_ITS ---
CLINICAL HISTORY: N20.0 - Calculus of kidney US Renal Comparison: US - US RENAL BI - 11/02/24 09:20 EDT Findings: Right kidney normal size and echotexture, 9.7 cm length. Left kidney normal size and echotexture, 8 cm length. Right renal lower pole hyperechoic focus, 0.3 x 0.3 x 0.4 cm; calcification. No hydronephrosis of either kidney. Normal color Doppler. The bilateral is not imaged on present examination. IMPRESSION: Right renal lower pole nonobstructing subcentimeter nephrolith. Consider CT of the abdomen and pelvis without IV contrast for baseline evaluation of nephroliths. This document has been electronically signed by: Volodymyr Briones MD on 07/17/2025 17:17:16
--- OUTSIDE RECORDS SUMMARY | 2025-07-17 10:30 | XMS_ITS | Encounter Summary ---
Author Organization [employer] Address [address] [place] [address] [place] [address] Care Team Providers Care Police Captain Precinct Name Role Phone Louie Gutierrez MD Primary Care Provide r Encounter Details Date Type Department Care Team (Latest Contact Info) Description 10/20/2020 Abstract [facility] CONVERSIONS Dental, Provider, DDS Social History [...] Description 09/03/2025 1:15 PM EST Office Visit [facility] MEDICINE [address] [place] [address] Louie Gutierrez MD [address] [place] [address] 01/07/2026 10:15 AM EDT Office Visit [facility] ADULT DENTAL [address] [place] [address] Ulises Fowleraris [address] [place] [address] documented as of this encounter Visit Diagnoses Not on filedocumented in this encounter Care Teams Police Captain Precinct Relationship Specialty Start Date End Date Louie Gutierrez MD [address] [place] [id number] PCP - General Internal Medicine 06/13/13 Fatimah MARI 08/09/24 documented as of this encounter
--- OUTSIDE RECORDS SUMMARY | 2025-07-17 10:30 | XMS_ITS | Encounter Summary ---
Author Organization [employer] Address [address] [facility] 7t [place] [address] Care Team Providers Care Drilling Field Operator Name Role Phone Louie Gutierrez MD Primary Care Provide r Encounter Details Date Type Department Care Team (Late st Contact Info) Description 02/06/2025 Orders Only [facility] [address] [place] [address] ProviderReggie MD Social History Tobacco Use Types [...] Description 09/03/2025 1:15 PM EST Office Visit [facility] MEDICINE [address] [place] [address] Louie Gutierrez MD [address] [place] [address] 01/07/2026 10:15 AM EDT Office Visit [facility] ADULT DENTAL [address] [place] [address] Malcolm, Jennifer [address] [place] [address] documented as of this encounter Procedures Procedure [...] documented as of this encounter Care Teams Drilling Field Operator Relationship Specialty Start Date End Date Louie Gutierrez MD [address] [place] [address] PCP - General Internal Medicine 06/13/13 [facility] A 12/19/24 documented as of this encounter
--- OUTSIDE RECORDS SUMMARY | 2025-07-17 10:30 | XMS_ITS | Encounter Summary ---
Author Organization [employer] Address [address] [place] [address] [place] [address] Care Team Providers Care Handyman Name Role Phone Louie Gutierrez MD Primary Care Provide r Encounter Details Date Type Department Care Team (Latest Contact Info) Description 07/02/2022 Abstract [facility] CONVERSIONS [...] Description 09/03/2025 1:15 PM EST Office Visit [facility] MEDICINE [address] [place] [phone] Louie Gutierrez MD [address] [place] [address] 01/07/2026 10:15 AM EDT Office Visit [facility] ADULT DENTAL [address] [place] [address] Ulises Fowleraris [address] [place] [address] documented as of this encounter Visit Diagnoses Not on filedocumented in this encounter Care Teams Handyman Relationship Specialty Start Date End Date Louie Gutierrez MD [address] [place] [phone] PCP - General Internal Medicine 06/13/13 Fatimah MARI 08/09/24 documented as of this encounter
--- OUTSIDE RECORDS SUMMARY | 2025-07-17 10:31 | XMS_ITS | Encounter Summary ---
Author Organization [employer] Address [address] [facility] 7 [place] [address] Care Team Providers Care Flight Instructor Name Role Phone Louie Gutierrez MD Primary Care Provide r Encounter Details Date Type Department Care Team ([facility] Contact Info) Description 12/07/2022 Orders Only [facility] MED & PEDS [address] [place] [address] Roro Gregg LPN Social History Tobacco Use [...] Encounters Date Type Department Care Team (Late Contact Info) Description 09/03/2025 1:15 PM EST Office Visit [facility] MEDICINE [address] [place] [address] Louie Gutierrez MD [address] [place] [address] 01/07/2026 10:15 AM EDT Office Visit [facility] ADULT DENTAL [address] [place] [address] Jennifer Fowler [address] [place] [address] documented as of this encounter Visit Diagnoses Not on filedocumented in this encounter Care Teams Flight Instructor Relationship Specialty Start Date End Date Louie Gutierrez MD [address] [place] [address] PCP - General Internal Medicine 06/13/13 Fatimah [facility] 08/09/24 documented as of this encounter
--- OUTSIDE RECORDS SUMMARY | 2025-07-17 10:31 | XMS_ITS | Encounter Summary ---
Author Organization [employer] Address [address] [facility] 7t [place] [address] Care Team Providers Care Banking Manager Name Role Phone Louie Gutierrez MD Primary Care Provide r Encounter Details Date Type Department Care Team (Late st Contact Info) Description 06/05/2025 Orders Only [facility] [address] [place] [address] ProviderReggie MD Social History Tobacco Use Types [...] Description 09/03/2025 1:15 PM EST Office Visit [facility] MEDICINE [address] [place] [address] Louie Gutierrez MD [address] [place] [address] 01/07/2026 10:15 AM EDT Office Visit [facility] ADULT DENTAL [address] [place] [address] Malcolm, Jennifer [address] [place] [address] documented as of this encounter Procedures Procedure Name Priority Date/Time Associated Diagnosis Comments ELECTROCARDIOGRAM REPORT Routine 025 11:37 AM EDT documented in this encounter Results * Electrocardiogram Report (06/04/2025 11:37 AM EDT) Historical Provider IN CLINIC/BEDSIDE ORDERAB LES Final Result documented in this encounter Visit Diagnoses Not on filedocumented in this encounter Additional Health Concerns Assessment Noted Time PHQ-9 Depression Total Score: 1 05/31/20 24 1:55 PM EDT documented as of this encounter Care Teams Banking Manager Relationship Specialty Start Date End Date Louie Gutierrez MD [address] [place] [address] PCP - General Internal Medicine 06/13/13 Fatimah A 08/09/24 documented as of this encounter
--- OUTSIDE RECORDS SUMMARY | 2025-07-17 10:31 | XMS_ITS | Encounter Summary ---
Author Organization [employer] Address [address] [facility] 7 [place] [address] Care Team Providers Care National Stormwater Leader Name Role Phone Louie Gutierrez MD Primary Care Provide r Reason for Visit * Reason Onset Date Comments Nurse Triage 01/02/2025 Encounter Details Date Type Department Care Team ([facility] st Contact Info) Description 01/02/2025 Telephone [facility] MEDICINE [address] [place] [address] Louie Gutierrez MD [address] [place] [address] Nurse Triage Social History Tobacco Use Types [...] 01/02/2025 1:58 PM EDT Triage call to [phone] Pt daughter from [place] has come to help Pt. Pt reports fall 3 weeks ago . Pt was going down stairs to do laundry, put on flip flops and proceeded to slip on the stairs. Pt reports falling onto right knee and abrasion occurred. Pt was seen in [facility] 12/12/24. Tdap was givenat that time. Wound was cleaned and antibiotic ointment applied , Pt went home with some dressing material and prescription for antibiotic ointment. Pt is calling today with reports of right knee abrasion with possible infection. Area is reddened with pus formation. Pt is a diabetic. Pt was given wound referral [place] [facility] [place] but, never went. Pt is [...] the fall The caller accepted this outcome. [phone] frisian documented in this encounter Plan of Treatment Upcoming Encounters Date Type Department Care Team (Late st Contact Info) Description 09/03/2025 1:15 PM EST Office Visit [facility] MED[facility] [address] [facility] [place] [address] Louie Gutierrez MD [address] [facility] [place] [address] 01/07/2026 10:15 AM EDT Office Visit [facility] ADULT DENTAL [address] [facility] [place] [address] Malcolm, Jennifer [address] [place] [address] documented as of this encounter Visit Diagnoses Not on filedocumented in this encounter Additional Health Concerns Assessment Noted Time PHQ-9 Depression Total Score: 1 05/31/20 1:55 PM EDT documented as of this encounter Care Teams National Stormwater Leader Relationship Specialty Start Date End Date Louie Gutierrez MD [address] [facility] [place] [address] PCP - General Internal Medicine 06/13/13 Fatimah GOODWINA 08/09/24 documented as of this encounter
--- OUTSIDE RECORDS SUMMARY | 2025-07-17 10:31 | XMS_ITS | Clinical Summary ---
Author Organization [employer] Address [address] [facility] [address] [place] [address] Care Team Providers Care Fire Prevention Captain Name Role Phone Louie Gutierrez MD Primary [...] 23 Active D3 Super Strength 50 MCG (2000 UT) capsule Take 50 mcg by mouth in the morning. 01/14/20 23 Active valsartan (Diovan) 160 MG tablet TAKE 1 TABLET BY MOUTH EVERY MORNING 30 tablet 6 07/29/20 23 Active loratadine (Claritin) 10 MG tablet TAKE 1 TABLET BY MOUTH EVERY DAY 30 tablet 6 09/01/19 24 Active insulin glargine (Lantus SoloStar) 100 UNIT/ML penIndications :Type 2 diabetes mellitus without complication, with long-term current use of insulin (HCC) Inject 16 Units under the skin at bedtime. 15 mL 3 10/09/19 25 Active atorvastatin (Lipitor) 80 MG tablet TAKE 1 TABLET BY MOUTH AT BEDTIME 30 tablet 6 11/23/19 25 Active bacitracin-liliam ymyxin b (Polysporin) ointment Apply topically 2 times daily. Apply to affected area daily 30 g 12/13/19 25 Active acetaminophen (Tylenol) 500 MG tablet Take 2 tablets (1,000 mg) by mouth every 6 (six) hours if needed for moderate pain or fever for up to 25 doses. 50 tablet 12/13/19 25 Active Trulicity 4.5 MG/0.5ML solution auto-injectorI ndications:Typ e 2 diabetes mellitus without complication, with long-term current use of insulin ([facility]) INJECT ONE PEN (= 4.5MG) SUBCUTANEOUSLY ONCE A WEEK DIRECTED 2 mL 11 07/09/2025 11:28 AM EST 02/15/20 25 Active TRUEplus Lancets 33G miscIndication s:Type 2 diabetes mellitus without complication, with long-term current use of insulin ([facility]) USE TO TEST BLOOD SUGAR THREE TIMES DAILY DIRECTED 100 each 11 03/19/20 25 Active Easy Touch Pen [place] 31G X 8 MM misc USE DIRECTED ONCE DAILY 100 each 3 03/26/20 25 Active metFORMIN (Glucophage) 1000 MG tablet TAKE 1 TABLET BY MOUTH TWICE DAILY IN THE MORNING AND IN THE EVENING WITH FOOD 180 tablet 03/28/20 25 Active OneTouch Ultra Test test stripIndicatio ns:Type 2 diabetes mellitus without complication, with long-term current use of insulin ([facility]) TEST BLOOD SUGAR THREE TIMES DAILY 100 strip 3 04/12/20 25 Active Aspirin Low Dose 81 MG EC tablet TAKE 1 TABLET BY MOUTH EVERY EVENING 90 tablet 3 05/07/20 25 Active econazole nitrate 1 % creamIndicatio ns:Intertrigo Apply topically 2 times daily. 85 g 05/23/20 25 Active glipiZIDE (Glucotrol) 10 MG tablet TAKE 1 TABLET BY MOUTH EVERY MORNING BEFORE A MEAL 90 tablet 1 06/10/20 25 Active Blood Glucose Monitoring Suppl (Accu-Chek Guide Me) w/Device kitIndications :Type 2 diabetes mellitus without complication, with long-term current use of insulin ([facility]) 1 each 3 times daily. 1 kit 07/10/20 25 Active Accu-Chek Softclix Lancets lancetsIndicat ions:Type 2 diabetes mellitus without complication, with long-term current use of insulin ([facility]) Use to test blood sugar 3 times daily 100 each 11 07/10/20 25 026 Active glucose blood (Accu-Chek Guide Test) test stripIndicatio ns:Type 2 diabetes mellitus without complication, with long-term current use of insulin (HCC) Use to check blood sugar 3 times daily 100 each 11 07/10/20 25 026 Active estradiol (Estrace) 0.1 MG/GM vaginal cream Insert 1 g into the vagina Once per day. 1g vaginally x 14d, then twice weekly thereafter 42.5 g 06/19/20 24 025 Active Problems Problem Noted Date Diagnosed Date [...] bone, evaluated in the past by an diver tender (Dr Banuelos) who treated her initially with Actonel but she could not tolerate subsequently she was given an infusion of Reclast and remains on Vitamin D pt was lost for f/u with Dr Banuelos. Pt was seen by a different Meter Changes Records Clerk (Dr Ferrer)who reviewed previous notes from Dr [...] cellulitis of right lower leg Admitted to [facility] 01/09-01/10 after she presented with presumptive cellulitis [...] Pt is under the care of [facility] who do her vascular studies ([phone]) PreviuslyI Extended her Doxy BID x 10 [...] cellulitis of right lower leg Admitted to [facility] 01/09-01/10 after she presented with presumptive cellulitis [...] Pt is under the care of [facility] who do her vascular studies ([phone]) Previus visit I Extended her Doxy BID [...] cellulitis of right lower leg Admitted to [facility] 01/09-01/10 after she presented with presumptive cellulitis [...] Pt is under the care of [facility] who do her vascular studies ([phone]) Previus visit I Extended her Doxy BID [...] right leg She was recently admitted to [facility] 01/09-01/10 after she presented with cellulitis of [...] PM EDT): S/o excision by Mian Lara PLASTERER TENDER Pathology showed: Variable epidermal acanthosis with focal [...] Plan (05/23/2025 8:41 AM EDT): Diagnosed by [facility]. Last seen by [facility] 08/30/2023 Assessment & Plan (09/01/2023 9:28 AM EST): Diagnosed by [facility]. Last seen by [facility] 08/30/2023 Diabetes mellitus, type II 05/11/2012 [...] last done on: 01/21/[address] Cotton (wire straightener) measured her IOP and was stable so [...] last done on: 01/21/[address] Cotton (wire straightener) measured her IOP and was stable so he recommended to DC the eye drops she was using for a dx of Primary open angle glaucoma Microalbumin checked on : 08/26/2021 was: 4.5 Pt is not on an TANIAY inhibitor due to COUGH. She is on [...] last done on: 01/21/[address] Cotton (wire straightener) measured her IOP and was stable so [...] last done on: 01/21/[address] Cotton (wire straightener) measured her IOP and was stable so [...] Pt tells me she was vacationing in [place] and while there she was not following a diabetic diet. When reviewing her glucometer it was evident the time she was in [place] because her blood sugars were consistently high and now that she is back blood sugars have normalized Eye exam was last done on: 01/21/[address] Cotton (wire straightener) measured her IOP and was stable so [...] compliance with diet and meds while in [place] 3 months f/u Pt advised to: adhere [...] last done on: 01/21/[address] Cotton (wire straightener) measured her IOP and was stable so [...] last done on: 01/21/[address] Cotton (wire straightener) measured her IOP and was stable so [...] last done on: 01/21/[address] Cotton (wire straightener) measured her IOP and was stable so [...] last done on: 01/21/[address] Cotton (wire straightener) measured her IOP and was stable so [...] note pt had a cardiac cath at [facility] on 05/20/2009 There was NO angiographic evidence of CAD. seen in the past at [facility]. Plan: 3 month follow up Assessment & [...] take her meds Pt following with our [facility] Most recent [...] note pt had a cardiac cath at [facility] on 05/20/2009 There was NO angiographic evidence of CAD. seen in the past at [facility]. Plan: 4 week follow up, awaiting skin [...] note pt had a cardiac cath at [facility] on 05/20/2009 There was NO angiographic evidence of CAD. seen in the past at [facility]. PREVIOUSLY ADDRESSED: THE INFORMATION BELOW HAS BEEN COPIED, PASTED AND UPDATED FROM PREVIOUS NOTES. Chest discomfort (R07.89). Resolved, pt ended up having an outpt stress test 05/23/2019 that was negative for ischemia. Of note pt had a cardiac cath 2008 at [facility] that was unremarkable. Assessment & Plan (10/09/2024 [...] note pt had a cardiac cath at [facility] on 05/20/2009 There was NO angiographic evidence of CAD. seen in the past at [facility]. PREVIOUSLY ADDRESSED: THE INFORMATION BELOW HAS BEEN COPIED, PASTED AND UPDATED FROM PREVIOUS NOTES. Chest discomfort (R07.89). Resolved, pt ended up having an outpt stress test 05/23/2019 that was negative for ischemia. Of note pt had a cardiac cath 2008 at [facility] that was unremarkable. 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 Pt with a Hx. of ? Paget's disease of the bone, evaluated in the past by an diver tender (Dr Banuelos) who treated her initially with Actonel but she could not tolerate subsequently she was given an infusion of Reclast and remains on Vitamin D pt was lost for f/u with Dr Banuelos. Last visit we scheduled a f/u appointment. Pt was seen by a different Meter Changes Records Clerk (Dr Ferrer)who review previous notes from Dr Banuelos and new bone scan, and lab data. She was seen on 11/08/2012nd based on his impression he DID NOT think pt had Paget's disease. She was last seen by [facility]ocr[facility]ology on 02/16/2013 (Dr Ferrer) He diagnosed [...] origin) (588.81). Under the care of Dr. Ferrre last seen 09/19/2014 Assessment & Plan (05/31/2024 [...] note pt had a cardiac cath at [facility] on 05/20/2009 There was NO angiographic evidence of CAD. seen in the past at [facility]. PREVIOUSLY ADDRESSED: THE INFORMATION BELOW HAS BEEN COPIED, PASTED AND UPDATED FROM PREVIOUS NOTES. Chest discomfort (R07.89). Resolved, pt ended up having an outpt stress test 05/23/2019 that was negative for ischemia. Of note pt had a cardiac cath 2009 at [facility] that was unremarkable. 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 Pt with a Hx. of ? Paget's disease of the bone, evaluated in the past by an diver tender (Dr Banuelos) who treated her initially with Actonel but she could not tolerate subsequently she was given an infusion of Reclast and remains on Vitamin D pt was lost for f/u with Dr Banuelos. Last visit we scheduled a f/u appointment. Pt was seen by a different Meter Changes Records Clerk (Dr Ferrer)who review previous notes from Dr Banuelos and new bone scan, and lab data. She was seen on 11/08/2012 based on his impression he DID NOT think pt had Paget's disease. She was last seen by [facility] Endocrinology on 02/16/2013 (Dr Ferrer) He diagnosed [...] note pt had a cardiac cath at [facility] on 05/20/2009 There was NO angiographic evidence of CAD. seen in the past at [facility]. PREVIOUSLY ADDRESSED: THE INFORMATION BELOW HAS BEEN COPIED, PASTED AND UPDATED FROM PREVIOUS NOTES. Chest discomfort (R07.89). Resolved, pt ended up having an outpt stress test 05/23/2019 that was negative for ischemia. Of note pt had a cardiac cath 2008 at [facility] that was unremarkable. 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 Pt with a Hx. of ? Paget's disease of the bone, evaluated in the past by an diver tender (Dr Banuelos) who treated her initially with Actonel but she could not tolerate subsequently she was given an infusion of Reclast and remains on Vitamin D pt was lost for f/u with Dr Banuelos. Last visit we scheduled a f/u appointment. Pt was seen by a different Meter Changes Records Clerk (Dr Ferrer)who review previous notes from Dr Banuelos and new bone scan, and lab data. She was seen on 11/08/2012nd based on his impression he DID NOT think pt had Paget's disease. She was last seen by [facility]ocr[facility] on 02/16/2013 (Dr Ferrer) He diagnosed [...] note pt had a cardiac cath at [facility] on 05/20/2009 There was NO angiographic evidence of CAD. seen in the past at [facility]. PREVIOUSLY ADDRESSED: THE INFORMATION BELOW HAS BEEN COPIED, PASTED AND UPDATED FROM PREVIOUS NOTES. Chest discomfort (R07.89). Resolved, pt ended up having an outpt stress test 05/23/2019 that was negative for ischemia. Of note pt had a cardiac cath 2008 at [facility] that was unremarkable. 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 Pt with a Hx. of ? Paget's disease of the bone, evaluated in the past by an diver tender (Dr Banuelos) who treated her initially with Actonel but she could not tolerate subsequently she was given an infusion of Reclast and remains on Vitamin D pt was lost for f/u with Dr Banuelos. Last visit we scheduled a f/u appointment. Pt was seen by a different Meter Changes Records Clerk (Dr Ferrer)who review previous notes from Dr Banuelos and new bone scan, and lab data. She was seen on 11/08/2012 based on his impression he DID NOT think pt had Paget's disease. She was last seen by [facility] Endocrinology on 02/16/2013 (Dr Ferrer) He diagnosed [...] note pt had a cardiac cath at [facility] on 05/20/2009 There was NO angiographic evidence of CAD. seen in the past at [facility]. PREVIOUSLY ADDRESSED: THE INFORMATION BELOW HAS [...] pt had a cardiac cath 2009 at [facility] that was unremarkable. 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 Examination suggestive of this Plan: Nizoral shampoo, Neutrogenal Grundy tar shampoo extra strength Referral to Dr [...] moderate stage (365.10), Chronic. Recently diagnosed by [facility]. last seen 03/10/2012. They recommended to continue to follow with dr. 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 Pt with a Hx. of ? Paget's disease of the bone, evaluated in the past by an diver tender (Dr Banuelos) who treated her initially with Actonel but she could not tolerate subsequently she was given an infusion of Reclast and remains on Vitamin D pt was lost for f/u with Dr Banuelos. Last visit we scheduled a f/u appointment. Pt was seen by a different Meter Changes Records Clerk (Dr Ferrer)who review previous notes from Dr Banuelos and new bone scan, and lab data. She was seen on 11/08/2012nd based on his impression he DID NOT think pt had Paget's disease. She was last seen by [facility] Endocrinology on 02/16/2013 (Dr Ferrer) He diagnosed [...] LDL-C. Ciaran SS et al. HITESH. 2013;310(19): 4081-3105 ([email or web address]) Chol/HDLC Ratio <5.0 (calc) 3.6 3.0 5.1 [...] Encounters Date Type Department Care Team Description 07/09/2025 10:15 AM EST Office Visit [facility] [address] [place] [id number] Jennifer Fowler Dental plaque (Primary Dx); Missing teeth, acquired; Dental calculus 07/03/2025 Refill [facility] [address] [place] [address] Louie Gutierrez MD Type 2 diabetes mellitus without complication, with long-term current use of insulin (HCC) 06/18/2025 Telephone [facility] [address] [place] [address] Louie Gutierrez MD August recall 06/08/2025 Refill [facility] [address] [place] [address] oLuie Gutierrez MD 06/05/2025 Orders Only [facility] [address] [place] [address] Reggie Sawyer MD 06/04/2025 Telephone [facility] [address] [place] [address] Louie Gutierrez MD ER Follow-up 06/04/2025 Orders Only GENERIC EXTERNAL DATA DEPARTMENT Provider, Keith External Data 05/23/2025 9:15 AM EDT Office Visit [facility] [address] [place], [place] [phone] Louie Gutierrez MD Type 2 diabetes mellitus without complication, with long-term current use of insulin (HCC) (Primary Dx); Mixed hyperlipidemia; Open-angle glaucoma, unspecified glaucoma stage, unspecified laterality, unspecified open-angle glaucoma type; Spongiotic dermatitis; Primary hypertension; Intertrigo; Preventative health care; Encounter for immunization 05/23/2025 Travel 05/22/2025 Telephone [facility] [address] [place] [address] Louie Gutierrez MD chart prep 05/07/2025 Refill [facility] [address] [place], [place] [phone] Louie Gutierrez MD from Last 3 Months Immunizations Immunization Administration [...] Sign Reading Time Taken Comments Blood Pressure 142/84 07/09/2025 10:19 AM EST Pulse 64 05/23/2025 9:10 AM EDT Temperature [...] Description 09/03/2025 1:15 PM EST Office Visit [facility] [address] [place] [address] Louie Gutierrez MD [address] [place] [address] 01/07/2026 10:15 AM EDT Office Visit [facility] [address] [place] [address] Jennifer Fowler [address] [place] [address] Health Maintenance Due Date Last Done Comments Diabetes: Foot Exam 1950 Eye Exam 1950 RSV Patients and Patients Aged 60 years or older (1 - 1-dose 75+ series) 2016 Zoster Vaccines (3 of 3) 08/12/2022 06/17/2022, 08/23 COVID-19 Vaccine (3 - season) 2025 11/14/2020, 10/17/2020 Depression Screening 05/31/2025 05/31/2024, 10/10/20 24 Diabetes: Hemoglobin A1C 08/23/2025 025, 01/17/2025, 10/09/2024, Additional history exists Mammogram 09/13/2025 09/13/2024, 08/22, 09/02/2022, Additional history exists Alcohol/Substance Use Screening 10/09/2025 10/09/2024 SDOH Screening 10/09/2025 10/09/2024 Diabetes: Urine Protein Screening 10/26/2025 10/26/2024, 08/26/2021, 11/10/2020, Additional history exists Dental Oral Exam 01/07/2026 07/09/2025, , 09/15/2023, Additional history exists Dental Prophylaxis 01/07/2026 07/09/2025, 0 12/21/2024, 05/07/2024, Additional history exists Lipid Panel 05/23/2026 05/23/2025, 01/21, 01/28/2022, Additional history exists Tobacco Screening 07/09/2026 07/09/2025 Dental X-Ray: Bitewings 07/10/2026 07/09/20, 05/07/2024, 12/01/2023, Additional history exists Dental X-Ray: Full Mouth [...] on patient's age to complete this topic Goals Goal Patient Goal Type Associated Problems Recent Progress Patient-Stated? Author Help patients manage their type 2 diabetes Care Plan Help patients manage their type 2 diabetes No John Estephania Weekly blood pressure task Care Plan Weekly blood pressure task No John, Estephania Help patients manage their type 2 diabetes Care Plan Help patients manage their type 2 diabetes No John, Estephania Patient has chronic kidney disease Care Plan Patient has chronic kidney disease No John Estephania Weekly blood pressure task Care Plan Weekly blood pressure task No John Estephania Patient has chronic kidney disease Care Plan Patient has chronic kidney disease No John Estephania Weekly blood pressure task Care Plan Weekly blood pressure task No Malcolm Jennifer Weekly blood pressure task Care Plan Weekly blood pressure task No Malcolm Jennifer Patient has chronic kidney disease Care Plan Patient has chronic kidney disease No Malcolm Jennifer Patient has chronic kidney disease Care Plan Patient has chronic kidney disease No Malcolm Jennifer Weekly blood pressure task Care Plan Weekly blood pressure task No Herber Zelaya DMD Weekly blood pressure task Care Plan Weekly blood pressure task No Herber Zelaya DMD Patient has chronic kidney disease Care Plan Patient has chronic kidney disease No Herber Zelaya DMD Patient has chronic kidney disease Care Plan Patient has chronic kidney disease Herber Knapp DMD Weekly blood pressure task Care Plan Weekly blood pressure task No Herber Zelaya DMD Weekly blood pressure task Care Plan Weekly blood pressure task No Herber Zelaya DMD Patient has chronic kidney disease Care Plan Patient has chronic kidney disease No Herber Zelaya DMD Patient has chronic kidney disease Care Plan Patient has chronic kidney disease No Herber Zelaya DMD Procedures Procedure Name Priority Date/Time Associated Diagnosis Comments PERIODIC ORAL EVALUATION - ESTABLISHED PATIENT Routine 07/09/2025 10:15 AM EST ORAL HYGIENE INSTRUCTIONS Routine 07/09/2025 10:15 AM EST PROPHYLAXIS - ADULT Routine 07/09/2025 1 0:15 AM EST Dental plaque Missing teeth, acquired Dental calculus INTRAORAL - PERIAPICAL EACH ADDITIONAL RADIOGRAPHIC IMAGE Routine 07/09/2025 10:15 AM EST Dental plaque Missing teeth, acquired Dental calculus INTRAORAL - PERIAPICAL EACH ADDITIONAL RADIOGRAPHIC IMAGE Routine 07/09/2025 10:15 AM EST Dental plaque Missing teeth, acquired Dental calculus INTRAORAL - PERIAPICAL FIRST RADIOGRAPHIC IMAGE Routine 07/09/2025 10:15 AM EST Dental plaque Missing teeth, acquired Dental calculus BITEWINGS - 4 RADIOGRAPHIC IMAGES Routine 07/09/2025 10:15 AM EST Dental plaque Missing teeth, acquired Dental calculus 12 IMPLANT SUPPORTED PORCELAIN/CERAMIC CROWN Routine 07/09/2025 12:00 AM EST ELECTROCARDIOGRAM REPORT Routine 025 11:37 AM EDT HIGH SENSITIVITY TROPONIN I Routine 06/04/2025 10:05 AM EDT TSH Routine 06/04/2025 8:21 AM EDT NT-PROBNP Routine 06/04/2025 8:21 AM EDT HIGH SENSITIVITY TROPONIN I Routine 06/04/2025 8:21 AM EDT C-REACTIVE PROTEIN Routine 06/04/2025 8: 21 AM EDT MAGNESIUM Routine 06/04/2025 8:21 AM EDT BASIC METABOLIC PANEL Routine 06/04/2025 8:21 AM EDT HEPATIC FUNCTION PANEL Routine 8:21 AM EDT CBC WITH AUTO DIFFERENTIAL Routine 06/04/2025 8:21 AM EDT XR CHEST 1 VIEW Routine 06/04/2025 8:21 AM EDT LIPID PANEL, STANDARD Routine 05/23/2025 10:26 AM EDT Mixed hyperlipidemia POCT GLYCATED HEMOGLOBIN, TOTAL Routine 05/23/2025 9:16 AM EDT Type 2 diabetes mellitus without complication, with long-term current use of insulin (HCC) POCT GLUCOSE Routine 05/23/2025 9:11 AM EDT Type 2 diabetes mellitus without complication, with long-term current use of insulin ([facility]) ALBUMIN, RANDOM URINE W/CREATININE Routine 10/26/2024 8:36 AM EST Type 2 diabetes mellitus without complication, with long-term current use of insulin (CMS/HCC) BI MAMMOGRAM SCREENING TOMOSYNTHESIS BILATERAL Routine 09/13/2024 8:38 AM EST INTRAORAL - COMPLETE SERIES OF RADIOGRAPHIC IMAGES Routine 05/07/2024 8:00 AM EDT from Last 3 Months or Most Recently Relevant to Health Maintenance Results * Electrocardiogram Report (06/04/2025 11:37 AM EDT) Historical Provider MD IN CLINIC/BEDSIDE ORDERAB LES Final Result * High Sensitivity Troponin I (06/04/2025 10:05 AM EDT) Only the most recent of2 resultswithin the time period is included. TROPONIN I HIGH SENSITIVITY 13.8 <3.5 - 17.0 ng/L [facility] Comment:The [place] high sens itivity Troponin-I results should beused in conjunction with other diagnostic information suchas ECG, clinical observations and information, and patientsymptoms to aid in the diagnosis of [place]. 06/04/2025 10:0 5 AM EDT 06/04/2025 10:08 AM EDT us Generic External Data Provider LAB BLOOD ORDERAB LES Final Result [facility] [address] [place] [phone] * NT-proBNP (06/04/2025 8:21 AM EDT) NT-proBNP 82.8 <300 pg/mL [facility] Comment:Reference Range:Age Group (years) NT-proBNP (pg/ml) InterpretationAll <300 Negative: HF unlikelyFor patients presenting to the ED with clinical suspicion ofnew onset or worsening HF, see below:18 to <50 >299.9 to <450.0 Grayzone: [id number] to 75 >299.9 to <900.0 other causes of>75 >299.9 to <1800.0 NT-proBNP [id number] to <50 >449.9 Positive: HF gdmukg54-35 >899.9>75 >1799.9Note: Elevated NT-proBNP levels should be interpreted inthe context of other clinical information. 06/04/2025 8:21 AM EDT 06/04/2025 8:24 AM EDT us Generic External Data Provider LAB BLOOD ORDERAB LES Final Result [facility] [address] [place] [address] [phone] * (ABNORMAL) CBC auto differential (06/04/2025 8:21 AM EDT) White Blood Count 12.0(H) 4.8 - 10.8 X10*3/uL [facility] Red Blood Count 4.81 4.20 - 5.50 X10*6/uL [facility] Hemoglobin 14.3 12.0 - 16.0 g/dl [facility] Hematocrit 43.5 37.0 - 47.0 % [facility] Mean Corpuscular Volume 90.4 80.0 - 98.0 fL [facility] Mean Corpuscular Hemoglobin 29.7 27.0 - 33.0 pg [facility] Mean Corpuscular HGB Conc 32.9 31.0 - 35.0 g/dl [facility] Red Cell Distribution Width 13.4 11.0 - 16.0 % [facility] Platelet Count 346 160 - 400 X10*3/uL [facility] Mean Platelet Volume 9.5 9.4 - 12.3 fL [facility] Neutrophils Percent Auto 75.6(H) 45 - 73 % [facility] Imm Gran Pct Auto 0.4 0.0 - 0.4 % [facility] Lymphocytes Percent Auto 15.7(L) 20 - 40 % [facility] Monocytes Percent Auto 6.0 2 - 11 % [facility] Eosinophils Percent Auto 1.6 0 - 4 % [facility] Basophils Percent Auto 0.7 0 - 2 % [facility] NRBC Pct Auto 0.0 0.0 - 0.2 /100WBC [facility] Neutrophils Absolute Auto 9.1(H) 2.0 - 8.3 x10*3/uL [facility] Imm Gran Abs Auto 0.05(H) 0.00 - 0.03 X10*3/uL [facility] Lymphocytes Absolute Auto 1.9 1.2 - 4.9 X10*3/uL [facility] Monocytes Absolute Auto 0.7 0.1 - 1.2 X10*3/uL [facility] Eosinophils Absolute Auto 0.2 0.0 - 0.4 X10*3/uL [facility] Basophils Absolute Auto 0.1 0.0 - 0.2 X10*3/uL [facility] NRBC Abs Auto 0.000 0.0 - 0.012 X10*3/uL [facility] 06/04/2025 8:21 AM EDT 06/04/2025 8:24 AM EDT us Generic External Data Provider LAB BLOOD ORDERAB LES Final Result Performing Organization Address City/State/[facility] Co de Phone Number [facility] [address] [place] [phone] * XR Chest 1 View (06/04/2025 8:21 AM EDT) Anatomical Region Laterality Modality Chest Radiographic Betty ging 06/04/2025 8:21 AM EDT Narrative 06/04/2025 8:39 AM EDT [address] [address] XRay Report Signed Patient: Yusra Rodriguez MR#: [id number] 3 : 1940 Acct:[id number] Age/Sex: 84 / F ADM Date: 06/04/25 Loc: HO.ED Attending Dr: Ordering Physician: Wild Villalobos MD Date of Service: 06/04/25 Procedure(s): XR chest 1V Accession Number(s): [id number] cc: Louie Narayanan MD; Wild Villalobos MD Reason for Exam: shortness of breath EXAMINATION: XR CHEST CLINICAL INFORMATION: shortness of breath COMPARISON: 05/10/2023 CT chest 08/05/2024. TECHNIQUE: AP view of the chest was obtained. FINDINGS: The cardiac, hilar, and mediastinal contours are normal. Stable mildly elevated left hemidiaphragm with associated linear scarring in the left base. There is haziness of the interstitium with Diomedes B lines present, suggesting interstitial edema. No pneumothorax or effusion. No focal osseous or soft tissue abnormality. Degenerative changes in both shoulder joints and throughout the spine. XR/XR chest 1V IMPRESSION: 1. Mild interstitial pulmonary edema suspected. No effusions. 2. Chronic scarring left base with mild elevation of the left hemidiaphragm. Electronically signed by: Caleb Medina MD 06/04/2025 08:36 AM EDT RP Dictated By: Caleb Medina MD Signed By: <Electronically signed by Caleb Medina MD in OV> 06/04/25835 DD/ 0821 TD/TT: 06/04/25 0830 Maintenance Mechanic Supervisor: Procedure Note Donotuseinterpreter, Image - 06/04/[address] [address] XRay Report Signed Patient: Yusra Rodriguez JMR#: [id number] 3 : 1940cct:[id number] Age/Sex: 84 / FADM Date: 06/04/25 Loc: HO.ED Attending Dr: Ordering Physician: Wild Villalobos MD Date of Service: 06/04/25 Procedure(s): XR chest 1V Accession Number(s): [id number] cc: Louie Narayanan MD; Wild Villalobos MD Reason for Exam: shortness of breath EXAMINATION: XR CHEST CLINICAL INFORMATION: shortness of breath COMPARISON: 05/10/2023 CT chest 08/05/2024. TECHNIQUE: AP view of the chest was obtained. FINDINGS: The cardiac, hilar, and mediastinal contours are normal. Stable mildly elevated left hemidiaphragm with associated linear scarring in the left base. There is haziness of the interstitium with Diomedes B lines present, suggesting interstitial edema. No pneumothorax or effusion. No focal osseous or soft tissue abnormality. Degenerative changes in both shoulder joints and throughout the spine. XR/XR chest 1V IMPRESSION: 1. Mild interstitial pulmonary edema suspected. No effusions. 2. Chronic scarring left base with mild elevation of the left hemidiaphragm. Electronically signed by: Caleb Medina MD 06/04/2025 08:36 AM EDT RP Dictated By: Caleb Medina MD Signed By: <Electronically signed by Caleb Medina MD in OV> 06/04/25835 DD/ 0 TD/TT: 06/04/25829 Maintenance Mechanic Supervisor: [facility] External Provider IMG XR PROCEDURES Final Result * C-reactive Protein (06/04/2025 8:21 AM EDT) C Reactive Protein 0.38 < or = 0.50 mg/dL [facility] 06/04/2025 8:21 AM EDT 06/04/2025 8:24 AM EDT Generic External Data Provider LAB BLOOD ORDERAB LES Final Result [facility] [address] [place] [phone] * TSH (06/04/2025 8:21 AM EDT) Thyroid Stimulating Hormone 2.45 0.32 - 4.0 uIU/mL [facility] Comment:TSH 3rd Generation ( [facility]) 06/04/2025 8:21 AM EDT 06/04/2025 8:24 AM EDT us Generic External Data Provider LAB BLOOD ORDERAB LES Final Result Performing Organization Address City/[facility]/ZIP Co de Phone Number [facility] [address] [place] [phone] * (ABNORMAL) Magnesium (06/04/2025 8:21 AM EDT) Magnesium 1.5(L) 1.6 - 2.6 mg/dL [facility] 06/04/2025 8:21 AM EDT 06/04/2025 8:24 AM EDT us Generic External Data Provider LAB BLOOD ORDERAB LES Final Result Performing Organization Address [facility] Phone Number [facility] [address] [place] [phone] * Hepatic Function Panel (06/04/2025 8:21 AM EDT) Bilirubin, Total 0.5 0.0 - 1.0 mg/dL [facility] Bilirubin, Direct 0.2 0.0 - 0.5 mg/dL [facility] Aspartate Amino Transferase 19 5 - 31 U/L [facility] Alanine Aminotransferase 15 0 - 31 U/L [facility] Total Protein 7.3 6.5 - 8.0 g/dL [facility] Albumin Level 4.2 3.5 - 5.0 g/dL [facility] Alkaline Phosphatase 97 39 - 117 U/L [facility] 06/04/2025 8:21 AM EDT 06/04/2025 8:24 AM EDT us Generic External Data Provider LAB BLOOD ORDERAB LES Final Result Performing Organization Address [facility] Co de Phone Number [facility] [address] [place] [phone] * (ABNORMAL) Basic Metabolic Panel (06/04/2025 8:21 AM EDT) Sodium 139 135 - 145 mmol/L [facility] Potassium 3.8 3.3 - 5.1 mmol/L [facility] Chloride 101 96 - 108 mmol/L [facility] Carbon Dioxide 25 22 - 29 mmol/L [facility] Anion Gap 17 12 - 20 [facility] Urea Nitrogen (BUN) 35(H) 9 - 16 mg/dL [facility] Creatinine, Serum 1.40 0.5 - 1.4 mg/dL [facility] Creatinine Clr Calc Pharmacy 28.7 [facility] Comment:Provided height and weight: 160.02 cm,71 kg.eGFR (calculated from the MDRD study equation) and eCrCl(calculated from the Cockcroft-Gault equation) are based ondifferent parameters and may not yield comparable results.If eCrCl result is absurd, please check patient'sheight/weight. Estimated Glomerular Filt Rate 36 [facility] Comment:Chronic Kidney Disea se: Estimated GFR < 60 mL/min/1.64z5Bhbcdw Kidney Disease: Estimated GFR < 15 mL/min/1.73m2 Glucose 262(H) 60 - 115 mg/dL [facility] Calcium 9.9 8.4 - 10.2 mg/dL [facility] 06/04/2025 8:21 AM EDT 06/04/2025 8:24 AM EDT us Generic External Data Provider LAB BLOOD ORDERAB LES Final Result [facility] [address] [place] [phone] * (ABNORMAL) Lipid Panel, Standard (05/23/2025 10:26 AM EDT) Triglycerides 166(H) <150 mg/dL [facility] Comment:Desirable Triglyceri de: less than 150 mg/dLBorderline High Triglyceride 150-199 mg/dLHigh Triglyceride: 200-499 mg/dLVery High Triglyceride: greater than or equal to 5OO mg/dL Cholesterol 211(H) <200 mg/dL [facility] Comment:Desirable Cholestero l: less than 200 mg/dLBorderline High Cholesterol: 200-239 mg/dLHigh Cholesterol: greater than 239 mg/dL LDL Cholesterol Calculated 131(H) <100 mg/dL [facility] Comment:Desirable LDL: less than 100 mg/dLNear Optimal/Above Optimal LDL: 110- 129 mg/dLBorderline High LDL: 130-159 mg/dLHigh LDL: 160-189 mg/dLVery High LDL: greater than or equal to 190 mg/dL HDL Cholesterol 47 >40 mg/dL [facility] Comment:Desirable HDL: great er than 40 mg/dL Note: This HDL assay may give artificially low results in patients with liver disease. Blood Venous blood specimen / Unknown 05/23/2025 10:26 AM EDT 05/23/2025 11:26 AM EDT Louie Whalen MD LAB BLOOD ORDERABLES Final Result [facility] [address] [place] [address] [phone] * (ABNORMAL) POCT Hgb A1c (05/23/2025 9:16 AM EDT) Hemoglobin A1C 9.5(A) 4.0 - 5.7 % QC Media Lot # [id number] Lot# Expiration Date [id number] Blood 05/23/2025 9:16 AM EDT Louie Whalen MD POINT OF CARE TEST EN TER/EDIT ORDERABLES Final Result * POCT Glucose (05/23/2025 9:11 AM EDT) Glucose Blood, POC 126 60 - 200 mg/dL QC Media Lot # [id number] Lot# Expiration Date 72 Blood Capillary blood specimen / Unknown 05/23/2025 9:11 AM EDT Louie Whalen MD POINT OF CARE TEST EN TER/EDIT ORDERABLES Final Result * Albumin, Random Urine W/Creatinine (10/26/2024 8:36 AM EST) Creatinine, Urine 86.79 mg/dL [facility] Microalbumin Urine 9.0 mg/L [facility] Microalbum Creatinine Ratio Ur 10.3 <30 ug/mg cr [facility] Comment:Albumin/Creatinine R atio Reference Ranges: Normal: < 30 ug/mg creatinine Microalbuminuria: 30 - 300 ug/mg creatinineClinical Albuminuria: > 300 ug/mg creatinine Urine (Urine, Random) 10/26/2024 8:36 AM EST 10/26/2024 8:54 AM EST Louie Whalen MD LAB URINE ORDERABLES Final Result [facility] [address] [place] [phone] * BI Mammogram Screening Tomosynthesis Bilateral (09/13/2024 8:38 AM EST) Anatomical Region Laterality Modality Breast Bilateral Mammography 09/13/2024 8:38 AM EST Narrative 09/21/2024 4:45 PM EST [facility] [address] [place] [address] [place] [address] Mammography Report Signed Patient: Yusra Rodriguez MR#: [id number] 3 : 1940 Acct:[id number] Age/Sex: 83 / F ADM Date: 09/13/24 Loc: MARY Attending Dr: Louie Narayanan MD Ordering Physician: Louie Narayanan MD Resu lts: 1Negative Date of Service: 09/13/24 Follow Up: 1 Year From Orig inal Mammogram Procedure(s): MM tomosynthesis screening BI Accession Number(s): [id number] cc: Louie Narayanan MD EXAMINATION: MM SCREENING [...] by: Judi Navarro DO 09/21/2024 04:42 PM [facility] Dictated By: Judi Navarro DO Signed By: <Electronically signed by Judi Navarro DO in OV> 09/21/24 1642 DD/ 0838 TD/TT: 09/13/24 0853 Maintenance Mechanic Supervisor: Procedure Note Donotuseinterpreter, Image - [facility]/21/[facility] [address] [place] [address] Mammography Report Signed Patient: Yusra Rodriguez JMR#: [id number] 3 : 2Acct:[id number] Age/Sex: 83 / FADM Date: 09/13/24 Loc: HO.MAMMO Attending Dr: Louie Narayanan MD Ordering Physician: Louie Narayanan MDResu lts: 1Negative Date of Service: 09/13/24Follow Up: 1 Year From Orig inal Mammogram Procedure(s): MM tomosynthesis screening BI Accession Number(s): [id number] cc: Louie Narayanan MD EXAMINATION: MM SCREENING [...] 09/21/24 1642 DD/ 0838 TD/TT: 09/13/24 0853 Maintenance Mechanic Supervisor: us Louie Whalen MD IMG BI PROCEDURES Fin al Result from Last 3 Months or Most Recently Relevant to Health Maintenance Additional Health Concerns Active Problems Noted Date [...] 07/10/2025 Patient has chronic kidney disease 07/10/2025 Insurance [facility]TE D[facility] - [facility] Care Teams Fire Prevention Captain Relationship Specialty Start Date End Date Louie Gutierrez MD [address] [place] [address] PCP - General Internal Medicine 06/13/13 [place] MARI 08/09/24
--- OUTSIDE RECORDS SUMMARY | 2025-07-17 10:31 | XMS_ITS | Encounter Summary ---
Author Organization [employer] Address [address] [facility] [address] [place] [address] Care Team Providers Care Tail Edger Name Role Phone Louie Gutierrez MD Primary Care Provide r Reason for Visit * Reason Comments Med Refill Encounter Details Date Type Department Care Team ([facility] Contact Info) Description 09/01/2023 Refill [facility] MEDICINE [address] [place] [address] Louie Gutierrez MD [address] [place], [place] [phone] Social History Tobacco Use Types Packs/Day Years [...] Description 09/03/2025 1:15 PM EST Office Visit [facility] MEDICINE [address] [place] [address] Louie Gutierrez MD [address] [place] [address] 01/07/2026 10:15 AM EDT Office Visit [facility] ADULT DENTAL [address] [place] [phone] Malcolm, Jennifer [address] [place] [address] documented as of this encounter Visit Diagnoses Not on filedocumented in this encounter Additional Health Concerns Assessment Noted Time PHQ-9 Depression Total Score: 0 02/04/20 23 2:31 PM EDT documented as of this encounter Care Teams Tail Edger Relationship Specialty Start Date End Date Louie Gutierrez MD [address] [place] [address] PCP - General Internal Medicine 06/13/13 [place] A 08/09/24 documented as of this encounter
== END 2025-07-17 09:26 | disposition home or self-care (01) ==
LOC: HO.US 09:25
PROVIDERS: PCP Internal Medicine; Visit Provider Nurse Practitioner Family
DX: N20.0 Calculus of kidney (principal)
CPT/HCPCS: 76775

== ENCOUNTER → 2025-07-17 09:28 | Outpatient (BNV) | payer OTHER, SELFPAY | PROVIDERS: PCP Internal Medicine; Visit Provider Radiology Diagnostic Radiology | DX: N20.0 Calculus of kidney (principal) | CPT/HCPCS: 76775 ==

== ENCOUNTER 2025-08-12 08:31 | Outpatient (REF) | payer OTHER, SELFPAY ==
--- OUTSIDE RECORDS SUMMARY | 2025-08-12 08:47 | XMS_ITS | Encounter Summary ---
Author Organization [employer] Address [address] [facility] [address] [place] [address] Care Team Providers Care Mineral Industry Teacher Name Role Phone Louie Gutierrez MD Primary Care Provide r Encounter Details Date Type Department Care Team (Late st Contact Info) Description 02/06/2025 Orders Only [facility] [address] [place] [address] ProviderReggie MD Social History Tobacco Use Types [...] Description 09/03/2025 1:15 PM EST Office Visit [facility] MEDICINE [address] [place] [address] Louie Gutierrez MD [address] [place] [address] 01/07/2026 10:15 AM EDT Office Visit [facility] ADULT DENTAL [address] [place] [address] Malcolm, Jennifer [address] [place] [address] documented as of this encounter Procedures Procedure [...] documented as of this encounter Care Teams Mineral Industry Teacher Relationship Specialty Start Date End Date Louie Gutierrez MD [address] [place] [phone] PCP - General Internal Medicine 06/13/13 [place] A 12/19/24 documented as of this encounter
--- OUTSIDE RECORDS SUMMARY | 2025-08-12 08:48 | XMS_ITS | Encounter Summary ---
Author Organization [employer] Address [address] [place] [address] [place] [address] Care Team Providers Care Car Chaser Name Role Phone Louie Gutierrez MD Primary Care Provide r Encounter Details Date Type Department Care Team (Latest Contact Info) Description 10/20/2020 Abstract [facility] CONVERSIONS Dental, Provider, DDS Social History [...] PM EST Office Visit [facility] MED[facility] [address] [place] [phone] Louie Gutierrez MD [address] [place] [address] 01/07/2026 10:15 AM EDT Office Visit [facility] ADULT DENTAL [address] [place] [address] Ulises Fowleraris [address] [place] [address] documented as of this encounter Visit Diagnoses Not on filedocumented in this encounter Care Teams Car Chaser Relationship Specialty Start Date End Date Louie Gutierrez MD [address] [place] [phone] PCP - General Internal Medicine 06/13/13 [place] MARI 08/09/24 documented as of this encounter
--- OUTSIDE RECORDS SUMMARY | 2025-08-12 08:48 | XMS_ITS | Encounter Summary ---
Author Organization [employer] Address [address] [facility] [address] [place] [address] Care Team Providers Care Sleep Technician Name Role Phone Louie Gutierrez MD Primary Care Provide r Encounter Details Date Type Department Care Team (Late st Contact Info) Description 06/05/2025 Orders Only [facility] [address] [place] [address] ProviderReggie MD Social History Tobacco Use Types [...] Description 09/03/2025 1:15 PM EST Office Visit [facility] MEDICINE [address] [place] [address] Louie Gutierrez MD [address] [place] [address] 01/07/2026 10:15 AM EDT Office Visit [facility] ADULT DENTAL [address] [place] [address] Malcolm, Jennifer [address] [place] [address] documented as of this encounter Procedures Procedure [...] documented as of this encounter Care Teams Sleep Technician Relationship Specialty Start Date End Date Louie Gutierrez MD [address] [place] [address] PCP - General Internal Medicine 06/13/13 [place] A 08/09/24 documented as of this encounter
--- OUTSIDE RECORDS SUMMARY | 2025-08-12 08:48 | XMS_ITS | Clinical Summary ---
Author Organization [employer] Address [address] [place] [address] Care Team Providers Care Utility Clerk Name Role Phone Louie Gutierrez MD [...] long-term current use of insulin ([facility]) Inject 16 Units under the skin at bedtime. 15 mL 3 5 10:04 AM EST 10/09/19 25 Active bacitracin-po lymyxin b (Polysporin) ointment Apply topically 2 times daily. Apply to affected area daily 30 g 12/13/19 25 Active acetaminophen (Tylenol) 500 MG tablet Take 2 tablets (1,000 mg) by mouth every 6 (six) hours if needed for moderate pain or fever for up to 25 doses. 50 tablet 12/13/19 25 Active Trulicity 4.5 MG/0.5ML solution auto-injector Indications:T ype 2 diabetes mellitus without complication, with long-term current use of insulin ([facility]) INJECT ONE PEN (= 4.5MG) SUBCUTANEOUSLY ONCE A WEEK DIRECTED 2 mL 11 5 10:04 AM EST 02/15/20 25 Active TRUEplus Lancets 33G miscIndicatio ns:Type 2 diabetes mellitus without complication, with long-term current use of insulin ([facility]) USE TO TEST BLOOD SUGAR THREE TIMES DAILY DIRECTED 100 each 11 03/19/20 25 Active Easy Touch Pen [place] 31G X 8 MM misc USE DIRECTED ONCE DAILY 100 each 3 03/26/20 25 Active metFORMIN (Glucophage) 1000 MG tablet TAKE 1 TABLET BY MOUTH TWICE DAILY IN THE MORNING AND IN THE EVENING WITH FOOD 180 tablet 03/28/20 25 Active OneTouch Ultra Test test stripIndicati ons:Type 2 diabetes mellitus without complication, with long-term current use of insulin ([facility]) TEST BLOOD SUGAR THREE TIMES DAILY 100 strip 3 04/12/20 25 Active Aspirin Low Dose 81 MG EC tablet TAKE 1 TABLET BY MOUTH EVERY EVENING 90 tablet 3 05/07/20 25 Active econazole nitrate 1 % creamIndicati ons:Intertrig o Apply topically 2 times daily. 85 g 05/23/20 25 Active glipiZIDE (Glucotrol) 10 MG tablet TAKE 1 TABLET BY MOUTH EVERY MORNING BEFORE A MEAL 90 tablet 1 06/10/20 25 Active Blood Glucose Monitoring Suppl (Accu-Chek Guide Me) w/Device kitIndication s:Type 2 diabetes mellitus without complication, with long-term current use of insulin ([facility]) 1 each 3 times daily. 1 kit 5 10:04 AM EST 07/10/20 25 Active Accu-Chek Softclix Lancets lancetsIndica tions:Type 2 diabetes mellitus without complication, with long-term current use of insulin ([facility]) Use to test blood sugar 3 times daily 100 each 11 5 10:04 AM EST 07/10/20 25 2025 Active glucose blood (Accu-Chek Guide Test) test stripIndicati ons:Type 2 diabetes mellitus without complication, with long-term current use of insulin (HCC) Use to check blood sugar 3 times daily 100 each 11 5 10:04 AM EST 07/10/20 25 2025 Active atorvastatin (Lipitor) 80 MG tablet TAKE 1 TABLET BY MOUTH AT BEDTIME 30 tablet 6 07/24/20 25 Active atorvastatin (Lipitor) 80 MG tablet TAKE 1 TABLET BY MOUTH AT BEDTIME 30 tablet 6 11/23/19 25 2024 Discontinued Active Problems Problem Noted Date [...] bone, evaluated in the past by an waste examiner (Dr Banuelos) who treated her initially with Actonel but she could not tolerate subsequently she was given an infusion of Reclast and remains on Vitamin D pt was lost for f/u with Dr Banuelos. Pt was seen by a different Orientation And Mobility Instructor (Dr Ferrer)who reviewed previous notes from Dr [...] cellulitis of right lower leg Admitted to [facility] 01/09-01/10 after she presented with presumptive cellulitis [...] Pt is under the care of Cardiology [facility] who do her vascular studies ([phone]) PreviuslyI Extended her Doxy BID x 10 [...] cellulitis of right lower leg Admitted to [facility] 01/09-01/10 after she presented with presumptive cellulitis [...] Pt is under the care of Cardiology [facility] who do her vascular studies ([phone]) Previus visit I Extended her Doxy BID [...] cellulitis of right lower leg Admitted to [facility] 01/09-01/10 after she presented with presumptive cellulitis [...] Pt is under the care of Cardiology [facility] who do her vascular studies ([phone]) Previus visit I Extended her Doxy BID [...] right leg She was recently admitted to [facility] 01/09-01/10 after she presented with cellulitis of [...] PM EDT): S/o excision by Mian Lara TRANSPORT NURSE Pathology showed: Variable epidermal acanthosis with focal [...] Last DEXA 2018 showed osteopenia. . They william hedrick that her secondary workup was completed and [...] Plan (05/23/2025 8:41 AM EDT): [facility]. Last seen by eye 08/30/2023 Assessment & Plan (09/01/2023 9:28 AM EST): Diagnosed by [facility]. Last seen by [facility] 08/30/2023 Diabetes mellitus, type II 05/11/2012 [...] last done on: 01/21/[address] Cotton (donkey engine firer/fireman) measured her IOP and was stable so [...] last done on: 01/21/[address] Cotton (donkey engine firer/fireman) measured her IOP and was stable so [...] last done on: 01/21/[address] Cotton (donkey engine firer/fireman) measured her IOP and was stable so [...] last done on: 01/21/[address] Cotton (donkey engine firer/fireman) measured her IOP and was stable so [...] Pt tells me she was vacationing in [place] and while there she was not following a diabetic diet. When reviewing her glucometer it was evident the time she was in [place] because her blood sugars were consistently high and now that she is back blood sugars have normalized Eye exam was last done on: 01/21/[address] Cotton (donkey engine firer/fireman) measured her IOP and was stable so [...] compliance with diet and meds while in [place] 3 months f/u Pt advised to: adhere [...] last done on: 01/21/[address] Cotton (donkey engine firer/fireman) measured her IOP and was stable so [...] last done on: 01/21/[address] Cotton (donkey engine firer/fireman) measured her IOP and was stable so [...] last done on: 01/21/[address] Cotton (donkey engine firer/fireman) measured her IOP and was stable so [...] last done on: 01/21/[address] Cotton (donkey engine firer/fireman) measured her IOP and was stable so [...] seen in the past at [facility]. Plan: 3 month follow up Assessment [...] seen in the past at [facility]. Plan: 4 week follow up, awaiting [...] other BP meds Pt following with our [facility] [...] seen in the past at [facility]. PREVIOUSLY ADDRESSED: THE INFORMATION BELOW HAS BEEN COPIED, PASTED AND UPDATED FROM PREVIOUS NOTES. Chest discomfort (R07.89). Resolved, pt ended up having an outpt stress test 05/23/2019 that was negative for ischemia. Of note pt had a cardiac [place] [facility] [place] [facility] that was unremarkable. Assessment & Plan (10/09/2024 [...] seen in the past at [facility]. PREVIOUSLY ADDRESSED: THE INFORMATION BELOW HAS [...] bone, evaluated in the past by an waste examiner (Dr Banuelos) who treated her initially with Actonel but she could not tolerate subsequently she was given an infusion of Reclast and remains on Vitamin D pt was lost for f/u with Dr Banuelos. Last visit we scheduled a f/u appointment. Pt was seen by a different Orientation And Mobility Instructor (Dr Ferrer)who review previous notes from Dr [...] seen in the past at [facility]. 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 Pt with a Hx. of ? Paget's disease of the bone, evaluated in the past by an waste examiner (Dr Banuelos) who treated her initially with Actonel but she could not tolerate subsequently she was given an infusion of Reclast and remains on Vitamin D pt was lost for f/u with Dr Banuelos. Last visit we scheduled a f/u appointment. Pt was seen by a different Orientation And Mobility Instructor (Dr Ferrer)who review previous notes from Dr [...] seen in the past at [facility]. 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 Pt with a Hx. of ? Paget's disease of the bone, evaluated in the past by an waste examiner (Dr Banuelos) who treated her initially with Actonel but she could not tolerate subsequently she was given an infusion of Reclast and remains on Vitamin D pt was lost for f/u with Dr Banuelos. Last visit we scheduled a f/u appointment. Pt was seen by a different Orientation And Mobility Instructor (Dr Ferrer)who review previous notes from Dr [...] seen in the past at [facility]. 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 Pt with a Hx. of ? Paget's disease of the bone, evaluated in the past by an waste examiner (Dr Banuelos) who treated her initially with Actonel but she could not tolerate subsequently she was given an infusion of Reclast and remains on Vitamin D pt was lost for f/u with Dr Banuelos. Last visit we scheduled a f/u appointment. Pt was seen by a different Orientation And Mobility Instructor (Dr Ferrer)who review previous notes from Dr [...] seen in the past at [facility]. PREVIOUSLY ADDRESSED: THE INFORMATION BELOW HAS [...] suggestive of this Plan: Nizoral shampoo, Neutrogenal Sharp tar shampoo extra strength Referral to Dr [...] moderate stage (365.10), Chronic. Recently diagnosed by [facility]. last seen 03/10/2012. They recommended to continue to follow with dr. 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 Pt with a Hx. of ? Paget's disease of the bone, evaluated in the past by an waste examiner (Dr Banuelos) who treated her initially with Actonel but she could not tolerate subsequently she was given an infusion of Reclast and remains on Vitamin D pt was lost for f/u with Dr Banuelos. Last visit we scheduled a f/u appointment. Pt was seen by a different Orientation And Mobility Instructor (Dr Ferrer)who review previous notes from Dr [...] LDL-C. Ciaran SS et al. HITESH. 2013;310(19): 3196-3162 (http://education.Bosideng/faq/HJY097) Chol/HDLC Ratio <5.0 (calc) 3.6 3.0 5.1 [...] Encounters Date Type Department Care Team Description 08/06/2025 Orders Only [facility] [address] [place] [address] Louie Gutierrez MD Primary hypertension (Primary Dx) 08/06/2025 Refill [facility] [address] [place] [address] Louie Gutierrez MD 08/05/2025 Telephone [facility] [address] [facility] [place] [address] Louie Gutierrez MD Referral 08/01/2025 Refill [facility] [address] [facility] [place] [address] Louie Gutierrez MD 07/30/2025 Refill [facility] [address] [facility] [place] [address] Louie Gutierrez MD 07/24/2025 Refill [facility] [address] [facility] [place] [address] Louie Gutierrez MD 07/17/2025 Orders Only [facility] External Provider, [facility] 07/09/2025 10:15 AM EST Office Visit [facility] ADULT DENTAL [address] [place] [address] Jennifer Fwoler Dental plaque (Primary Dx); Missing teeth, acquired; Dental calculus 07/03/2025 Refill [facility] [address] [facility] [place] [address] Louie Gutierrez MD Type 2 diabetes mellitus without complication, with long-term current use of insulin (HCC) 06/18/2025 Telephone [facility] [address] [facility] [address] Louie Gutierrez MD August06/08/2025 Refill [facility] [address] [facility] [address] Louie Gutierrez MD 06/05/2025 Orders Only [place] [facility] [address] [place] [address] ProviderReggie MD 06/04/2025 Telephone [facility] [address] [place] [address] Louie Gutierrez MD ER Follow-up 06/04/2025 Orders Only GENERIC EXTERNAL DATA DEPARTMENT Provider, Generic External Data 05/23/2025 9:15 AM EDT Office Visit [facility] [address] [place] [address] Louie Gutierrez MD Type 2 diabetes mellitus without complication, with long-term current use of insulin (HCC) (Primary Dx); Mixed hyperlipidemia; Open-angle glaucoma, unspecified glaucoma stage, unspecified laterality, unspecified open-angle glaucoma type; Spongiotic dermatitis; Primary hypertension; Intertrigo; Preventative health care; Encounter for immunization 05/23/2025 Travel 05/22/2025 Telephone [facility] [address] [place] [address] Louie Gutierrez MD chart prep from Last 3 Months Immunizations Immunization Administration [...] Upcoming Encounters Date Type Department Care Team ([facility] st Contact Info) Description 09/03/2025 1:15 PM EST Office Visit [facility] [address] [place] [address] Louie Gutierrez MD [address] [place] [address] 01/07/2026 10:15 AM EDT Office Visit [facility] ADULT DENTAL [address] [place] [address] Ulises Fowleraris [address] [place] [address] Health Maintenance Due Date Last Done Comments Diabetes: Foot Exam 1950 Eye Exam 1950 RSV Patients and Patients Aged 60 years or older (1 - 1-dose 75+ series) 2016 Zoster Vaccines (3 of 3) 08/12/2022 06/17/2022, 08/23 COVID-19 Vaccine ( - 2024- season) 2025 11/14/2020, 10/17/2020 Depression Screening 05/31/2025 05/31/2024, 05/31/20 24 Diabetes: Hemoglobin A1C 08/23/2025 025, 01/17/2025, [...] Screening 07/09/2026 07/09/2025 Dental X-Ray: Bitewings 07/10/2026 07/09/20 25, 05/07/2024, 12/01/2023, Additional history exists Dental X-Ray: [...] patients manage their type 2 diabetes No Estephania John Weekly blood pressure task Care Plan Weekly blood pressure task No Estehpania John Help patients manage their type 2 diabetes Care Plan Help patients manage their type 2 diabetes No Estephania John Patient has chronic kidney disease Care Plan Patient has chronic kidney disease No Corina Johna Weekly blood pressure task Care Plan Weekly blood pressure task No Corina Johna Patient has chronic kidney disease Care Plan Patient has chronic kidney disease No Corina Johna Weekly blood pressure task Care Plan Weekly blood pressure task No Jennifer Fowler Weekly blood pressure task Care Plan Weekly blood pressure task No Jennifer Fowler Patient has chronic kidney disease Care Plan [...] Care Plan Weekly blood pressure task No Roro Booker, PharmD Weekly blood pressure task Care Plan Weekly blood pressure task No Roro Booker, PharmD Patient has chronic kidney disease Care Plan Patient has chronic kidney disease No Roro Booker, PharmD Patient has chronic kidney disease Care Plan Patient has chronic kidney disease No Roro Booker, PharmD Weekly blood pressure task Care Plan Weekly blood pressure task No Nelson Paulson Weekly blood pressure task Care Plan Weekly blood pressure task No Paulson Nelson Patient has chronic kidney disease Care Plan Patient has chronic kidney disease No Paulson, Nelson Patient has chronic kidney disease Care Plan Patient has chronic kidney disease No Khurram Nelson Weekly blood pressure task Care Plan Weekly blood pressure task No Roro Booker, PharmD Weekly blood pressure task Care Plan Weekly blood pressure task No Roro Booker, PharmD Patient has chronic kidney disease Care Plan Patient has chronic kidney disease No Megan Bookerfer, PharmD Patient has chronic kidney disease Care Plan Patient has chronic kidney disease No Megan Bookerfer, PharmD Weekly blood pressure task Care Plan Weekly blood pressure task No Louie Gutierrez MD Weekly blood pressure task Care Plan Weekly blood pressure task No Louie Gutierrez MD Patient has chronic kidney disease Care Plan Patient has chronic kidney disease No Louie Gutierrez MD Patient has chronic kidney disease Care Plan Patient has chronic kidney disease No Louie Gutierrez MD Procedures Procedure Name Priority Date/Time Associated Diagnosis Comments US RENAL COMPLETE Routine 07/17/2025 5:1 7 PM EST PERIODIC ORAL EVALUATION - ESTABLISHED PATIENT Routine [...] with long-term current use of insulin (HCC) ALBUMIN, RANDOM URINE W/CREATININE Routine 10/26/2024 8:36 AM EST Type 2 diabetes mellitus without complication, with long-term current use of insulin (CMS/HCC) BI MAMMOGRAM SCREENING TOMOSYNTHESIS BILATERAL Routine 09/13/2024 8:38 AM EST INTRAORAL - COMPLETE SERIES OF RADIOGRAPHIC IMAGES Routine 05/07/2024 8:00 AM EDT from Last 3 Months or Most Recently Relevant to Health Maintenance Results * US Renal Complete (07/17/2025 5:17 PM EST) Anatomical Region Laterality Modality Kidney Ultrasound 07/17/2025 5:17 PM EST Narrative 07/17/2025 5:19 PM EST [place] [address] Ultrasound Report Signed Patient: Yusra Rodriguez MR#: [id number] 3 : 1940 Acct:[id number] Age/Sex: 84 / F ADM Date: 07/17/25 Loc: HO.US Attending Dr: Suad ROJAS Ordering Physician: Suad Ortega Date of Service: 07/17/25 Procedure(s): US renal BI Accession Number(s): [id number] cc: Louie Narayanan MD; Suad Ortega Reason for Exam: N20.0 - Calculus of kidney CLINICAL HISTORY: N20.0 - Calculus of kidney US Renal Comparison: US - US RENAL BI - 11/02/24 09:20 EDT Findings: Right kidney normal size and echotexture, 9.7 cm length. Left kidney normal size and echotexture, 8 cm length. Right renal lower pole hyperechoic focus, 0.3 x 0.3 x 0.4 cm; calcification. No hydronephrosis of either kidney. Normal color Doppler. The bilateral is not imaged on present examination. IMPRESSION: Right renal lower pole nonobstructing subcentimeter nephrolith. Consider CT of the abdomen and pelvis without IV contrast for baseline evaluation of nephroliths. This document has been electronically signed by: Volodymyr Briones MD on 07/17/2025 17:17:16 Dictated By: Volodymyr Briones MD Signed By: <Electronically signed by Volodymyr Briones MD in [place]> 07/17/251717 DD/ 16 TD/TT: 07/17/251716 Buckle Sorter: Procedure Note Donotuseinterpreter, Image - 07/17/2025 [place] [address] Ultrasound Report Signed Patient: Yusra Rodriguez JMR#: [id number] 3 : 1940cct:[id number] Age/Sex: 84 / FADM Date: 07/17/25 Loc: HO.US Attending Dr: Suad ROJAS Ordering Physician: Suad Ortega Date of Service: 07/17/25 Procedure(s): US renal BI Accession Number(s): [id number] cc: Louie Narayanan MD; Suad Ortega Reason for Exam: N20.0 - Calculus of kidney CLINICAL HISTORY: N20.0 - Calculus of kidney US Renal Comparison: US - US RENAL BI - 11/02/24 09:20 EDT Findings: Right kidney normal size and echotexture, 9.7 cm length. Left kidney normal size and echotexture, 8 cm length. Right renal lower pole hyperechoic focus, 0.3 x 0.3 x 0.4 cm; calcification. No hydronephrosis of either kidney. Normal color Doppler. The bilateral is not imaged on present examination. IMPRESSION: Right renal lower pole nonobstructing subcentimeter nephrolith. Consider CT of the abdomen and pelvis without IV contrast for baseline evaluation of nephroliths. This document has been electronically signed by: Volodymyr Briones MD on 07/17/2025 17:17:16 Dictated By: Volodymyr Briones MD Signed By: <Electronically signed by Volodymyr Briones MD in OV> 07/17/251717 DD/ 16 TD/TT: 07/17/251716 Buckle Sorter: [facility] External Provider IMG US PROCEDURES Final Result * Electrocardiogram Report (06/04/2025 11:37 AM EDT) Historical Provider IN CLINIC/BEDSIDE ORDERAB LES Final Result * High Sensitivity Troponin I (06/04/2025 10:05 AM EDT) Only the most recent of2 resultswithin the time period is included. Pathologist [facility] TROPONIN I HIGH SENSITIVITY 13.8 <3.5 - 17.0 ng/L [facility] Comment:The [place] high sens itivity Troponin-I results should beused in conjunction with other diagnostic information suchas ECG, clinical observations and information, and patientsymptoms to aid in the diagnosis of RI. 06/04/2025 10:0 5 AM EDT 06/04/2025 10:08 AM EDT Generic External Data Provider LAB BLOOD ORDERAB LES Final Result [facility] [address] [place] [phone] * NT-proBNP (06/04/2025 8:21 AM EDT) Pathologist [facility] NT-proBNP 82.8 <300 pg/mL [facility] Comment:Reference Range:Age Group (years) NT-proBNP (pg/ml) InterpretationAll <300 Negative: HF unlikelyFor patients presenting to the ED with clinical suspicion ofnew onset or worsening HF, see below:18 to <50 >299.9 to <450.0 Grayzone: [id number] to 75 >299.9 to <900.0 other causes of>75 >299.9 to <1800.0 NT-proBNP [id number] to <50 >449.9 Positive: HF [id number] >899.9>75 >1799.9Note: Elevated NT-proBNP levels should be interpreted inthe context of other clinical information. 06/04/2025 8:21 AM EDT 06/04/2025 8:24 AM EDT us Generic External Data Provider LAB BLOOD ORDERAB LES Final Result [facility] [address] [place] [phone] * (ABNORMAL) CBC auto differential (06/04/2025 8:21 AM EDT) White Blood Count 12.0(H) 4.8 - 10.8 X10*3/uL [facility] Red Blood Count 4.81 4.20 - 5.50 X10*6/uL [facility] Hemoglobin 14.3 12.0 - 16.0 g/dl [facility] Hematocrit 43.5 37.0 - 47.0 % [facility] Mean Corpuscular Volume 90.4 80.0 - 98.0 fL [facility] Mean Corpuscular Hemoglobin 29.7 27.0 - 33.0 pg [facility] Mean Corpuscular HGB Conc 32.9 31.0 - 35.0 g/dl [facility] Red Cell Distribution Width 13.4 11.0 - 16.0 % [facility] Platelet Count 346 160 - 400 X10*3/uL [facility] Mean Platelet Volume 9.5 9.4 - 12.3 fL [facility] Neutrophils Percent Auto 75.6(H) 45 - 73 % [facility] Imm Gran Pct Auto 0.4 0.0 - 0.4 % [facility] Lymphocytes Percent Auto 15.7(L) 20 - 40 % [facility] Monocytes Percent Auto 6.0 2 - 11 % [facility] Eosinophils Percent Auto 1.6 0 - 4 % [facility] Basophils Percent Auto 0.7 0 - 2 % [facility] NRBC Pct Auto 0.0 0.0 - 0.2 /100WBC [facility] Neutrophils Absolute Auto 9.1(H) 2.0 - 8.3 x10*3/uL [facility] Imm Gran Abs Auto 0.05(H) 0.00 - 0.03 X10*3/uL [facility] Lymphocytes Absolute Auto 1.9 1.2 - 4.9 X10*3/uL [facility] Monocytes Absolute Auto 0.7 0.1 - 1.2 X10*3/uL [facility] Eosinophils Absolute Auto 0.2 0.0 - 0.4 X10*3/uL [facility] Basophils Absolute Auto 0.1 0.0 - 0.2 X10*3/uL [facility] NRBC Abs Auto 0.000 0.0 - 0.012 X10*3/uL [facility] 06/04/2025 8:21 AM EDT 06/04/2025 8:24 AM EDT us Generic External Data Provider LAB BLOOD ORDERAB LES Final Result [facility] [address] [place] [phone] * XR Chest 1 View (06/04/2025 8:21 AM EDT) Anatomical Region Laterality Modality Chest Radiographic Betty ging 06/04/2025 8:21 AM EDT Narrative 06/04/2025 8:39 AM EDT [address] [address] XRay Report Signed Patient: Yusra Rodriguez MR#: [id number] 3 : 1940 Acct:[id number] Age/Sex: 84 / F ADM Date: 06/04/25 Loc: HO.ED Attending Dr: Ordering Physician: Wild Villalobos MD Date of Service: 06/04/25 Procedure(s): XR chest 1V Accession Number(s): [id number] cc: Louie Narayanan MD; Wild Villalobos MD [...] Caleb Medina MD 06/04/2025 08:36 AM EDT Dictated By: Caleb Medina MD Signed By: <Electronically signed by Caleb Medina MD in OV> 06/04/2536 DD/ 0 TD/TT: 06/04/25 08 Buckle Sorter: Procedure Note Donotuseinterpreter, Image - 06/04/2025 [place] [address] XRay Report Signed Patient: Yusra Rodriguez JMR#: [id number] 3 : 1940cct:[id number] Age/Sex: 84 / FADM Date: 06/04/25 Loc: HO.ED Attending Dr: Ordering Physician: Wild Villalobos MD Date of Service: 06/04/25 Procedure(s): XR chest 1V Accession Number(s): [id number] cc: Louie Narayanan MD; Wild Villalobos MD [...] signed by Caleb Medina MD in OV> 06/04/2536 DD/ 0 TD/TT: 06/04/25829 Buckle Sorter: [facility] External Provider IMG XR PROCEDURES Final Result * C-reactive Protein (06/04/2025 8:21 AM EDT) C Reactive Protein 0.38 < or = 0.50 mg/dL [facility] 06/04/2025 8:21 AM EDT 06/04/2025 8:24 AM EDT Generic External Data Provider LAB BLOOD ORDERAB LES Final Result [facility] [address] [place] [phone] * TSH (06/04/2025 8:21 AM EDT) Thyroid Stimulating Hormone 2.45 0.32 - 4.0 uIU/mL [facility] Comment:TSH 3rd Generation ( [facility]) 06/04/2025 8:21 AM EDT 06/04/2025 8:24 AM EDT us Generic External Data Provider LAB BLOOD ORDERAB LES Final Result Performing Organization Address [facility] de Phone Number [facility] [address] [place] [phone] * (ABNORMAL) Magnesium (06/04/2025 8:21 AM EDT) Pathologist [facility] Magnesium 1.5(L) 1.6 - 2.6 mg/dL [facility] 06/04/2025 8:21 AM EDT 06/04/2025 8:24 AM EDT us Generic External Data Provider LAB BLOOD ORDERAB LES Final Result Performing Organization Address [facility] Phone Number [facility] [address] [place] [phone] * Hepatic Function Panel (06/04/2025 8:21 AM EDT) Bilirubin, Total 0.5 0.0 - 1.0 mg/dL [facility] Bilirubin, Direct 0.2 0.0 - 0.5 mg/dL [facility] Aspartate Amino Transferase 19 5 - 31 U/L [facility] Alanine Aminotransferase 15 0 - 31 U/L [facility] Total Protein 7.3 6.5 - 8.0 g/dL [facility] Albumin Level 4.2 3.5 - 5.0 g/dL [facility] Alkaline Phosphatase 97 39 - 117 U/L [facility] 06/04/2025 8:21 AM EDT 06/04/2025 8:24 AM EDT us Generic External Data Provider LAB BLOOD ORDERAB LES Final Result Performing Organization Address [facility]/State/ZIP Co de Phone Number [facility] [address] [place] [phone] * (ABNORMAL) Basic Metabolic Panel (06/04/2025 8:21 AM EDT) Sodium 139 135 - 145 mmol/L [facility] Potassium 3.8 3.3 - 5.1 mmol/L [facility] Chloride 101 96 - 108 mmol/L [facility] Carbon Dioxide 25 22 - 29 mmol/L [facility] Anion Gap 17 12 - 20 [facility] Urea Nitrogen (BUN) 35(H) 9 - 16 mg/dL [facility] Creatinine, Serum 1.40 0.5 - 1.4 mg/dL [facility] Creatinine Clr Calc Pharmacy 28.7 [facility] Comment:Provided height and weight: 160.02 cm,71 kg.eGFR (calculated from the MDRD study equation) and eCrCl(calculated from the Cockcroft-Gault equation) are based ondifferent parameters and may not yield comparable results.If eCrCl result is absurd, please check patient'sheight/weight. Estimated Glomerular Filt Rate 36 [facility] Comment:Chronic Kidney Disea se: Estimated GFR < 60 mL/min/1.09w2Lcooev Kidney Disease: Estimated GFR < 15 mL/min/1.73m2 Glucose 262(H) 60 - 115 mg/dL [facility] Calcium 9.9 8.4 - 10.2 mg/dL [facility] 06/04/2025 8:21 AM EDT 06/04/2025 8:24 AM EDT us Generic External Data Provider LAB BLOOD ORDERAB LES Final Result [facility] [address] [place] [phone] * (ABNORMAL) Lipid Panel, Standard (05/23/2025 10:26 AM EDT) Triglycerides 166(H) <150 mg/dL [facility] Comment:Desirable Triglyceri de: less than 150 mg/dLBorderline High Triglyceride 150-199 mg/dLHigh Triglyceride: 200-499 mg/dLVery High Triglyceride: greater than or equal to 5OO mg/dL Cholesterol 211(H) <200 mg/dL [facility] Comment:Desirable Cholestero l: less than 200 mg/dLBorderline High Cholesterol: 200-239 mg/dLHigh Cholesterol: greater than 239 mg/dL LDL Cholesterol Calculated 131(H) <100 mg/dL [facility] Comment:Desirable LDL: less than 100 mg/dLNear Optimal/Above Optimal LDL: 110- 129 mg/dLBorderline High LDL: 130-159 mg/dLHigh LDL: 160-189 mg/dLVery High LDL: greater than or equal to 190 mg/dL HDL Cholesterol 47 >40 mg/dL [facility] Comment:Desirable HDL: great er than 40 mg/dL Note: This HDL assay may give artificially low results in patients with liver disease. Blood Venous blood specimen / Unknown 05/23/2025 10:26 AM EDT 05/23/2025 11:26 AM EDT Louie Whalen MD LAB BLOOD ORDERABLES Final Result [facility] [address] [place] [phone] * (ABNORMAL) POCT Hgb A1c (05/23/2025 9:16 AM EDT) Hemoglobin A1C 9.5(A) 4.0 - 5.7 % QC Media Lot # [id number] Lot# Expiration Date 42 Blood 05/23/2025 9:16 AM EDT us Louie Whalen MD POINT OF CARE TEST EN TER/EDIT ORDERABLES Final Result * POCT Glucose (05/23/2025 9:11 AM EDT) Glucose Blood, POC 126 60 - 200 mg/dL QC Media Lot # [id number] Lot# Expiration Date Blood Capillary blood specimen / Unknown 05/23/2025 9:11 AM EDT Louie Whalen MD POINT OF CARE TEST EN TER/EDIT ORDERABLES Final Result * Albumin, Random Urine W/Creatinine (10/26/2024 8:36 AM EST) Creatinine, Urine 86.79 mg/dL [facility] Microalbumin Urine 9.0 mg/L [facility] Microalbum Creatinine Ratio Ur 10.3 <30 ug/mg cr [facility] Comment:Albumin/Creatinine R atio Reference Ranges: Normal: < 30 ug/mg creatinine Microalbuminuria: 30 - 300 ug/mg creatinineClinical Albuminuria: > 300 ug/mg creatinine Urine (Urine, Random) 10/26/2024 8:36 AM EST 10/26/2024 8:54 AM EST Louie Whalen MD LAB URINE ORDERABLES Final Result Performing Organization Address City/State/[facility] Co de Phone Number [facility] [address] [place] [address] [phone] * BI Mammogram Screening Tomosynthesis Bilateral (09/13/2024 8:38 AM EST) Anatomical Region Laterality Modality Breast Bilateral Mammography 09/13/2024 8:38 AM EST Narrative 09/21/2024 4:45 PM EST [facility] [address] [place] [address] Mammography Report Signed Patient: Yusra Rodriguez MR#: [id number] 3 : 1940 Acct:[id number] Age/Sex: 83 / F ADM Date: 09/13/24 Loc: SRINIVASAN.MAMMJoe Attending Dr: Louie Narayanan MD Ordering Physician: Louie Narayanan MD Resu lts: 1Negative Date of Service: 09/13/24 Follow Up: 1 Year From Orig inal Mammogram Procedure(s): MM tomosynthesis screening BI Accession Number(s): [id number] cc: Louie Narayanan MD EXAMINATION: MM SCREENING [...] by: Judi Navarro DO 09/21/2024 04:42 PM [facility] Dictated By: Judi Navarro DO Signed By: <Electronically signed by Judi Navarro DO in OV> 09/21/24 1642 DD/ 0838 TD/TT: 09/13/24 0853 Buckle Sorter: Procedure Note Donotuseinterpreter, Image - 09/21/2024 [facility] [address] [place] [address] Mammography Report Signed Patient: Yusra Rodriguez JMR#: [id number] 3 : 2Acct:[id number] Age/Sex: 83 / FADM Date: 09/13/24 Loc: KAUSHALO Attending Dr: Louie Narayanan MD Ordering Physician: Louie Narayanan MDResu lts: 1Negative Date of Service: 09/13/24Follow Up: 1 Year From Orig inal Mammogram Procedure(s): MM tomosynthesis screening BI Accession Number(s): [id number] cc: Louie Narayanan MD EXAMINATION: MM SCREENING [...] 09/21/24 1642 DD/ 0838 TD/TT: 09/13/24 0853 Buckle Sorter: us Louie Whalen MD IMG BI PROCEDURES [...] kidney disease 07/10/2025 Weekly blood pressure task 08/01/2025 Weekly blood pressure task 08/01/2025 Patient has chronic kidney disease 08/01/2025 Patient has chronic kidney disease 08/01/2025 Weekly blood pressure task 08/05/2025 Weekly blood pressure task 08/05/2025 Patient has chronic kidney disease 08/05/2025 Patient has chronic kidney disease 08/05/2025 Weekly blood pressure task 08/06/2025 Weekly blood pressure task 08/06/2025 Patient has chronic kidney disease 08/06/2025 Patient has chronic kidney disease 08/06/2025 Weekly blood pressure task 08/06/2025 Weekly blood pressure task 08/06/2025 Patient has chronic kidney disease 08/06/2025 Patient has chronic kidney disease 08/06/2025 Insurance [facility] DUAL COMPLETE O Care Teams Utility Clerk Relationship Specialty Start Date End Date Louie Gutierrez MD [address] [place] [phone] PCP - General Internal Medicine 06/13/13 [facility] 08/09/24
--- OUTSIDE RECORDS SUMMARY | 2025-08-12 08:48 | XMS_ITS | Encounter Summary ---
Author Organization [employer] Address [address] [facility] 7t [place] [address] Care Team Providers Care Pharmaceutical Process Engineer Name Role Phone Louie Gutierrez MD Primary Care Provide r Encounter Details Date Type Department Care Team ([facility] st Contact Info) Description 08/01/2025 Refill [facility] [address] [place] [address] Louie Gutierrez MD [address] [place] [address] Social History Tobacco Use Types Packs/Day Years [...] Description 09/03/2025 1:15 PM EST Office Visit [facility] [address] [place] [phone] Louie Gutierrez MD 230 [place] [address] 01/07/2026 10:15 AM EDT Office Visit [facility] ADULT DENTAL [address] [place] [address] Jennifer Fowler [address] [place] [address] documented as of this encounter Goals Goal Patient Goal Type Associated Problems Recent Progress Patient-Stated? Author Help patients manage their type 2 diabetes Care Plan Help patients manage their type 2 diabetes No Estephania John Weekly blood pressure task Care Plan Weekly blood pressure task No Corina Johna Help patients manage their type 2 diabetes Care Plan Help patients manage their type 2 diabetes No Wagner Johnlanda Patient has chronic kidney disease Care Plan Patient has chronic kidney disease No John, Estephania Weekly blood pressure task Care Plan Weekly blood pressure task No John Estephania Patient has chronic kidney disease Care Plan Patient has chronic kidney disease No JohnWagner ortizEstephania Weekly blood pressure task Care Plan Weekly blood pressure task No MalcolmJennifer pringle Weekly blood pressure task Care Plan Weekly blood pressure task No Malcolm, Jennifer Patient has chronic kidney disease Care Plan Patient has chronic kidney disease No Jennifer Fowler Patient has chronic kidney disease Care Plan Patient has chronic kidney disease No Jennifer Fowler Weekly blood pressure task [...] Plan Weekly blood pressure task No Roro Booker PharmD Weekly blood pressure task Care Plan Weekly blood pressure task No Roro Booker PharmD Patient has chronic kidney disease Care Plan Patient has chronic kidney disease No Roro Booker PharmD Patient has chronic kidney disease Care Plan Patient has chronic kidney disease No Roro Booker PharmD documented as of this encounter Visit Diagnoses [...] 08/01/2025 Patient has chronic kidney disease 08/01/2025 Assessment Noted Time PHQ-9 Depression Total Score: 1 05/31/20 1:55 PM EDT documented as of this encounter Care Teams Pharmaceutical Process Engineer Relationship Specialty Start Date End Date Louie Gutierrez MD [address] [place] [phone] PCP - General Internal Medicine 06/13/13 [facility] Fabiola 08/09/24 documented as of this encounter
--- OUTSIDE RECORDS SUMMARY | 2025-08-12 08:48 | XMS_ITS | Encounter Summary ---
Author Organization [employer] Address [address] [facility] 7t [place] [address] Care Team Providers Care Boot And Shoe Laborer Name Role Phone Louie Gutierrez MD Primary Care Provide r Reason for Visit * Reason Onset Date Comments Nurse Triage 01/02/2025 Encounter Details Date Type Department Care Team ([facility] st Contact Info) Description 01/02/2025 Telephone [facility] [address] [place] [address] Louie Gutierrez MD 230 [place] [address] Nurse Triage Social History Tobacco Use Types [...] 01/02/2025 1:58 PM EDT Triage call to [phone] Pt daughter from [place] has come to help Pt. Pt reports fall 3 weeks ago . Pt was going down stairs to do laundry, put on flip flops and proceeded to slip on the stairs. Pt reports falling onto right knee and abrasion occurred. Pt was seen in [facility] 12/12/24. Tdap was givenat that time. Wound was cleaned and antibiotic ointment applied , Pt went home with some dressing material and prescription for antibiotic ointment. Pt is calling today with reports of right knee abrasion with possible infection. Area is reddened with pus formation. Pt is a diabetic. Pt was given wound referral to [facility] wound clinic but, never went. Pt is [...] the fall The caller accepted this outcome. [phone] nepali documented in this encounter Plan of Treatment Upcoming Encounters Date Type Department Care Team (Late st Contact Info) Description 09/03/2025 1:15 PM EST Office Visit [facility] [address] [facility] [place] [address] Louie Gutierrez MD [address] [facility] [address] 01/07/2026 10:15 AM EDT Office Visit [facility] [address] [facility] [place] [address] Malcolm, Jennifer 230 [place] [address] documented as of this encounter Visit Diagnoses Not on filedocumented in this encounter Additional Health Concerns Assessment Noted Time PHQ-9 Depression Total Score: 1 05/31/20 1:55 PM EDT documented as of this encounter Care Teams Boot And Shoe Laborer Relationship Specialty Start Date End Date Louie Gutierrez MD [address] [facility] [place] [address] PCP - General Internal Medicine 06/13/13 [facility] GOODWINA 08/09/24 documented as of this encounter
--- OUTSIDE RECORDS SUMMARY | 2025-08-12 08:48 | XMS_ITS | Encounter Summary ---
Author Organization [employer] Address [address] [facility] 7t [place] [address] Care Team Providers Care Food Order Delivery Runner Name Role Phone Louie Gutierrez MD Primary Care Provide r Reason for Visit * Reason Onset Date Comments Lab Orders 08/06/2025 Encounter Details Date Type Department Care Team ([facility] st Contact Info) Description 08/06/2025 Refill [facility] [address] [place] [address] Louie Gutierrez MD [address] [place] [address] Social History Tobacco Use Types Packs/Day Years [...] Telephone Encounter - Tanesha España RN - 08/09/2025 9:37 AM EST Telephone call placed to pt. Informed kidney function elevated last labs so in order to fill Metformin, she will need to get repeat non-fasting labs done to ensure it has improved/normalized before sending. Pt verbalized understanding. * Telephone Encounter - Tanesha España RN - 08/08/2025 9:59 AM EST Telephone call placed to pt x2 regarding below message. No answer, left another v/m. * Telephone Encounter - Tanesha España RN - 08/07/2025 11:09 AM EST Telephone call placed to pt regarding below message. First time she answered and when I asked if she needs an staff interpreter in slovenian, she sighed and hung up. Called back with an staff interpreter. No answer, left v/m Pt's BMP showed an increase in her Scr. Please ask her to have stat BMP and if GFR improved I willsend the Metformin documented in this encounter Plan of Treatment Upcoming Encounters Date Type Department Care Team (Late st Contact Info) Description 09/03/2025 1:15 PM EST Office Visit [facility] [address] [place] [address] Louie Gutierrez MD [address] [place] [address] 01/07/2026 10:15 AM EDT Office Visit [facility] ADULT DENTAL [address] [place] [address] Malcolm, Jennifer [address] [place] [address] documented as of this encounter Goals Goal [...] Plan Patient has chronic kidney disease No Jhon, Estephania Weekly blood pressure task Care Plan [...] Patient has chronic kidney disease No Herber Zelaay DMD Weekly blood pressure task Care Plan [...] chronic kidney disease No Roro Booker PharmD Weekly blood pressure task Care Plan Weekly blood pressure task No Nelson Paulson Weekly blood pressure task Care Plan Weekly blood pressure task No Paulson Nelson Patient has chronic kidney disease Care Plan Patient has chronic kidney disease No Khurram Nelson Patient has chronic kidney disease Care Plan Patient has chronic kidney disease No Nelson Paulson Weekly blood pressure task Care Plan Weekly blood pressure task No Roro Booker PharmD Weekly blood pressure task Care Plan Weekly blood pressure task No Roro Booker PharmD Patient has chronic kidney disease Care Plan Patient has chronic kidney disease No Roro Booker PharmD Patient has chronic kidney disease Care Plan Patient has chronic kidney disease No Roro Booker PharmD Weekly blood pressure [...] chronic kidney disease No Louie Gutierrez MD documented as of this encounter Visit Diagnoses [...] 08/06/2025 Patient has chronic kidney disease 08/06/2025 Assessment Noted Time PHQ-9 Depression Total Score: 1 05/31/20 1:55 PM EDT documented as of this encounter Care Teams Food Order Delivery Runner Relationship Specialty Start Date End Date Louie Gutierrez MD [address] [place] [phone] PCP - General Internal Medicine 06/13/13 Fatimah Fabiola 08/09/24 documented as of this encounter
--- OUTSIDE RECORDS SUMMARY | 2025-08-12 08:48 | XMS_ITS | Encounter Summary ---
Author Organization [employer] Address [address] [place] [address] [place] [address] Care Team Providers Care Qa Consultant Name Role Phone Louie Gutierrez MD Primary Care Provide r Encounter Details Date Type Department Care Team (Latest Contact Info) Description 07/02/2022 Abstract [facility] CONVERSIONS Dental, Provider, DDS Social History Tobacco [...] Description 09/03/2025 1:15 PM EST Office Visit [facility] MEDICINE [address] [place] [phone] Louie Gutierrez MD [address] [place] [address] 01/07/2026 10:15 AM EDT Office Visit [facility] ADULT DENTAL [address] [place] [address] Ulises Fowleraris [address] [place] [address] documented as of this encounter Visit Diagnoses Not on filedocumented in this encounter Care Teams Qa Consultant Relationship Specialty Start Date End Date Louie Gutierrez MD [address] [place] [phone] PCP - General Internal Medicine 06/13/13 Fatimah MARI 08/09/24 documented as of this encounter
--- OUTSIDE RECORDS SUMMARY | 2025-08-12 08:48 | XMS_ITS | Encounter Summary ---
Author Organization [employer] Address [address] [facility] 7t [place] [address] Care Team Providers Care Rn Office Name Role Phone Louie Gutierrez MD Primary Care Provide r Reason for Visit * Reason Comments Med Refill Encounter Details Date Type Department Care Team ([facility] Contact Info) Description 07/30/2025 Refill [facility] [address] [place] [address] Louie Gutierrez MD [address] [place], [place] [phone] Social History Tobacco Use Types Packs/Day Years [...] 1:15 PM EST Office Visit [facility] [address] [place] [address] Louie Gutierrez MD [address] [place] [address] 01/07/2026 10:15 AM EDT Office Visit [facility] ADULT DENTAL [address] [place] [address] Jennifer Fowler [address] [place] [address] documented as of this encounter Goals Goal Patient Goal Type Associated Problems Recent Progress Patient-Stated? Author Help patients manage their type 2 diabetes Care Plan Help patients manage their type 2 diabetes No Corina Johna Weekly blood pressure task Care Plan Weekly blood pressure task No Wagner Johnlanda Help patients manage their type 2 diabetes Care Plan Help patients manage their type 2 diabetes No Alvaro Estephania Patient has chronic kidney disease Care [...] Zelaya DMD documented as of this encounter Visit Diagnoses [...] documented as of this encounter Care Teams Rn Office Relationship Specialty Start Date End Date Louie Gutierrez MD [address] [place] [phone] PCP - General Internal Medicine 06/13/13 [facility] 08/09/24 documented as of this encounter
--- OUTSIDE RECORDS SUMMARY | 2025-08-12 08:48 | XMS_ITS | Encounter Summary ---
Author Organization [employer] Address [address] [facility] 7t [place] [address] Care Team Providers Care Straight Edger Name Role Phone Louie Gutierrez MD Primary Care Provide r Reason for Visit * Reason Comments Med Refill Encounter Details Date Type Department Care Team ([facility] Contact Info) Description 09/01/2023 Refill [facility] [address] [place] [address] Louie Gutierrez MD [address] [place], [place] [phone] Social History Tobacco Use Types Packs/Day Years [...] Description 09/03/2025 1:15 PM EST Office Visit [facility] [address] [place] [address] Louie Gutierrez MD [address] [place] [address] 01/07/2026 10:15 AM EDT Office Visit [facility] ADULT DENTAL [address] [place] [address] Malcolm, Jennifer [address] [place] [address] documented as of this encounter Visit Diagnoses Not on filedocumented in this encounter Additional Health Concerns Assessment Noted Time PHQ-9 Depression Total Score: 0 02/04/20 23 2:31 PM EDT documented as of this encounter Care Teams Straight Edger Relationship Specialty Start Date End Date Louie Gutierrez MD [address] [place] [address] PCP - General Internal Medicine 06/13/13 Fatimah A 08/09/24 documented as of this encounter
--- OUTSIDE RECORDS SUMMARY | 2025-08-12 08:48 | XMS_ITS | Encounter Summary ---
Author Organization [employer] Address [address] [facility] 7 [place] [address] Care Team Providers Care Reexaminer Name Role Phone Louie Gutierrez MD Primary Care Provide r Encounter Details Date Type Department Care Team ([facility] Contact Info) Description 12/07/2022 Orders Only [facility] [address] [place] [address] Roro Gregg LPN Social History Tobacco Use [...] 09/03/2025 1:15 PM EST Office Visit [facility] [address] [place] [address] Louie Gutierrez MD [address] [place] [address] 01/07/2026 10:15 AM EDT Office Visit [facility] ADULT DENTAL [address] [place] [address] Jennifer Fowler [address] [place] [address] documented as of this encounter Visit Diagnoses Not on filedocumented in this encounter Care Teams Reexaminer Relationship Specialty Start Date End Date Louie Gutierrez MD [address] [place] [address] PCP - General Internal Medicine 06/13/13 [facility] 08/09/24 documented as of this encounter
[2025-08-12 15:04] LABS: Anion Gap 13 (12-20); Blood Urea Nitrogen 23 mg/dL (9-16); Calcium 9.5 mg/dL (8.4-10.2); Carbon Dioxide 25 mmol/L (22-29); Chloride 106 mmol/L (96-108); Estimated Glomerular Filt Rate 60; Potassium 3.8 mmol/L (3.3-5.1); Sodium 140 mmol/L (135-145)
== END 2025-08-12 08:32 | disposition home or self-care (01) ==
LOC: HO.HHCL 08:31
PROVIDERS: PCP Internal Medicine; Visit Provider Internal Medicine
DX: I10 Essential (primary) hypertension (principal)
CPT/HCPCS: 36415; 80048